=== PATIENT | female | born 1950 | race Caucasian/White ===

== ENCOUNTER 2025-03-10 09:07 | Outpatient (CLI) | payer MEDICARE, SELFPAY ==
[2025-03-10 09:39] LABS: Hematocrit 26.9 % (35.0-42.0); Hemoglobin 8.2 g/dL (11.7-13.8); Mean Corpuscular HGB Conc 30.5 g/dL (32-36); Mean Corpuscular Hemoglobin 27.8 pg (27.0-31.0); Mean Corpuscular Volume 91.2 fL (78.0-102.0); Mean Platelet Volume 8.6 fl (9.2-11.8); Platelet Count Result 229 K/mm3 (150-420); Red Blood Count 2.95 M/mm3 (4.20-5.40); Red Cell Distribution Width 16.9 % (11.6-14.4); White Blood Count 5.2 K/mm3 (4.8-10.8)
[2025-03-10 10:50] LABS: Alanine Aminotransferase 28 U/L (14-59); Albumin Level 2.8 g/dL (3.4-5.0); Alkaline Phosphatase 198 U/L (46-116); Anion Gap 7 mmol/L (4-12); Aspartate Amino Transferase 19 U/L (15-37); Bilirubin Direct 0.1 mg/dL (0-0.2); Bilirubin,Total 0.2 mg/dL (0.00-1.00); Blood Urea Nitrogen 15 mg/dL (7-18); Calcium 8.7 mg/dL (8.5-10.1); Carbon Dioxide 29 mmol/L (21-32); Chloride 101 mmol/L (98-108); Cholesterol 204 mg/dL (0-200); Estimated Glomerular Filt Rate 59; Free T4 Free Thyroxine 0.96 ng/dL (0.76-1.46); Glucose 99 mg/dL (70-99); HDL Direct 56 mg/dL (40-60); LDL Cholesterol Calculated 134 mg/dL (<130); Osmolality Calculated 284 mOsm/kg (285-295); Potassium 4.2 mmol/L (3.5-5.1); Sodium 137 mmol/L (136-145); Thyroid Stimulating Hormone 1.39 uIU/mL (0.36-3.74); Total Protein 8.2 g/dL (6.4-8.2); Triglycerides 71 mg/dL (0-150)
[2025-03-10 12:23] LABS: MALB Creatinine Ratio 9.1 mg/g (0-30); Microalbumin Urine Random 14.2 mg/L
[2025-03-12 06:14] LABS: Levetiracetam Keppra 51.8 mcg/mL (6.0-46.0)
== END 2025-03-10 09:08 | disposition home or self-care (01) ==
LOC: CHSLAB 09:12
PROVIDERS: PCP Family Medicine; Visit Provider Family Medicine
DX: E78.5 Hyperlipidemia, unspecified (principal); R30.0 Dysuria; E03.9 Hypothyroidism, unspecified; Z79.899 Other long term (current) drug therapy; R41.3 Other amnesia; R35.0 Frequency of micturition; R42 Dizziness and giddiness
CPT/HCPCS: 36415; 80048; 80061; 80076; 80177; 82043; 84439; 84443; 85027

== ENCOUNTER 2025-03-10 17:35 | Emergency (ER) | payer MEDICARE, SELFPAY ==
--- NOTE | ~2025-03-10 | CT_ITS ---
History: Fall PROCEDURE: CT cervical spine without intravenous contrast. COMPARISON: None TECHNIQUE: Multiple contiguous axial images of the cervical spine were performed without the administration of i ntravenous contrast. DLP: 232 mGy-cm FINDINGS: Acute comminuted fracture through the base of the odontoid process, with the comminution of the C2 ve rtebral body with the fracture lines extending into and involving the left C1/C2 facet joint. Degenerative disease is also noted, with osteophyte formation, disc space narrowing, endplate changes and vacuum phenomena. Compression of the superior endplate of T2 is incidentally noted, age indeterminate. Anterior fixation at the level of C5 and C6. The bilateral lung apices are unremarkable. No soft tissue abnormality is present. The airway is patent. Impression: Type III dens fracture comminution of the body and fracture lines extending into and involving the le ft lung/C2 facet joint. Compression of the superior endplate of T2, age indeterminate. Reviewed, dictated and finalized at location A. Impression: Type III dens fracture comminution of the body and fracture lines extending int o and involving the left lung/C2 facet joint. Compression of the superior endplate of T2, age indeterminate.
[2025-03-10 17:57] VITALS: BP 144/75; PULSE 79; RESP 20; TEMP 36.6; O2SAT 100
--- NOTE | 2025-03-10 18:18 | ED.NECK ---
HPI - Neck Pain/Injury General Chief Complaint: Neck Pain/Injury Stated Complaint: neck pain Time Seen by Provider: 03/10/25 17:47 Source: patient Limitations: no limitations History of Present Illness HPI Narrative: 74 YEARS OLD FEMALE CAME TO THE ED FROM ASSISTED COMPLAINING OF NECK PAIN POSTERIORLY FOR 1 WEEK. PATIENT HAD A FALL 1 WEEK AGO AND CURRENTLY AT REHAB, C2 FRACTURE, WEARING A HARD COLLAR. PATIENT DENIES TINGLING, NUMBNESS OR FOCAL NEURO DEFICITS OF THE UPPER OR LOWER EXTREMITIES. PATIENT DENIES ANY FEVER, CHILLS, NAUSEA, VOMITING, CHEST PAIN, SHORTNESS OF BREATH. Related Data Home Medications ?Medication ?Instructions ?Recorded ?Confirmed ?Last Taken ?Type acetaminophen 500 mg oral powder 1,000 mg PO Q6H PRN pain 03/10/25 Unknown History packet amlodipine 10 mg tablet 10 mg PO DAILY 03/10/25 Unknown History aspirin 81 mg chewable tablet 81 mg PO DAILY 03/10/25 Unknown History cephalexin 500 mg capsule 500 mg PO Q12H 03/10/25 Unknown History docusate sodium 100 mg capsule 100 mg PO BID 03/10/25 Unknown History levetiracetam 250 mg tablet 1,500 mg PO DAILY 03/10/25 Unknown History (Keppra) oxycodone 5 mg tablet 5 mg PO Q6H pain 03/10/25 03/10/25 History polyethylene glycol 3350 17 17 g PO DAILY 03/10/25 Unknown History gram/dose oral powder (ClearLax) potassium chloride 10 mEq 10 meq PO DAILY 03/10/25 Unknown History capsule,extended release prasugrel HCl 10 mg tablet 10 mg PO DAILY 03/10/25 Unknown History (Effient) primidone 250 mg tablet 250 mg PO QID 03/10/25 Unknown History topiramate 25 mg tablet (Topamax) 25 mg PO HS 03/10/25 Unknown History Allergies Allergy/AdvReac Type Severity Reaction Status Date / Time No Known Allergies Allergy Verified 03/10/25 18:43 Review of Systems Review of Systems: All systems reviewed & are unremarkable except as noted in HPI and below Exam Narrative: GENERAL APPEARANCE: WELL-DEVELOPED, WELL-NOURISHED SKIN: NORMAL COLOR HEAD: NORMOCEPHALIC, NONTRAUMATIC EYES: CLEAR CONJUNCTIVA ENT: OROPHARYNX NORMAL, EARS NORMAL, NOSE NORMAL NECK: HARD C-COLLAR ON CHEST AND RESPIRATORY: AIRWAY PATENT, NO RESPIRATORY DISTRESS, NO ACCESSORY MUSCLE USE HEART: REGULAR RATE/RHYTHM ABDOMEN: SOFT, NONTENDER, NO ORGANOMEGALY, QUIET BOWEL SOUNDS MUSCULOSKELETAL: NORMAL RANGE OF MOTION, NONTENDER BACK NEUROLOGIC: ALERT AND ORIENTED ?3, 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 WHEELCHAIR IS NORMAL TESTED, NO GROSS MOTOR DEFICIT Course Vital Signs Vital signs: Vital Signs Temperature 36.6 C 03/10/25 17:57 Pulse Rate 79 03/10/25 17:57 Respiratory Rate 20 03/10/25 17:57 Blood Pressure 144/75 H 03/10/25 17:57 Pulse Oximetry 100 03/10/25 17:57 Oxygen Delivery Room Air 03/10/25 17:57 Temperature 36.6 C 03/10/25 17:57 Pulse Rate 78 03/10/25 19:33 Respiratory Rate 18 03/10/25 19:33 Blood Pressure 126/72 03/10/25 19:33 Pulse Oximetry 100 03/10/25 19:33 Oxygen Delivery Room Air 03/10/25 19:33 MDM - Neck Pain/Injury MDM Narrative Medical decision making narrative: HISTORY OF C2 FRACTURE 1 WEEK AGO ON HARD C-COLLAR COMPLAINING OF PAIN FOR THE LAST 7 DAYS POSTERIORLY. NO FOCAL NEURO DEFICIT DIFFERENTIAL DIAGNOSIS INCLUDES HEALING FRACTURE, HARD C-COLLAR COMPLICATIONS, LACK OF NECK MUSCLE ACTIVITIES, NOT GIVEN HER REGULAR NARCOTICS AT THE REHAB CENTER CT CERVICAL SPINE SHOWED C2 FRACTURE Differential Diagnosis Differential diagnosis: Likely other ( ABOVE) Imaging Data My impression: CT CERVICAL SPINE SHOWED TYPE 3 DENS FRACTURE WITH ROUGHLY 5-6 MM OF FRAGMENT DISPLACEMENT. THERE IS COMMINUTION OF THE C2 BODY WITH FRACTURE LINES EXTENDING AND INVOLVING THE LEFT C1-TO FACET JOINT. Critical Care Time Critical Care Time Critical Care Time: No Discharge Plan Discharge Clinical Impression: C2 cervical fracture Patient Disposition: [facility]Asst Living Condition: Stable Instructions: Cervical Fracture (ED) Additional Instructions: RETURN IF SYMPTOMS ARE WORSENING , CALL YOUR NEUROSURGEON WHO IS TAKING CARE OF YOUR NECK FRACTURE FOR APPOINTMENT, CONTINUE HOME MEDICATIONS. OXYCODONE 5 MG EVERY 4 HOURS NEEDED Patient Language: Kazakh Prescriptions: No Action oxycodone 5 mg tablet 5 mg PO Q6H primidone 250 mg tablet 250 mg PO QID acetaminophen 500 mg powder in packet 1,000 mg PO Q6H PRN (Reason: pain) prasugrel HCl [Effient] 10 mg tablet 10 mg PO DAILY aspirin 81 mg tablet,chewable 81 mg PO DAILY amlodipine 10 mg tablet 10 mg PO DAILY levetiracetam [Keppra] 250 mg tablet 1,500 mg PO DAILY potassium chloride 10 mEq capsule, extended release 10 meq PO DAILY docusate sodium 100 mg capsule 100 mg PO BID polyethylene glycol 3350 [ClearLax] 17 gram/dose powder 17 g PO DAILY topiramate [Topamax] 25 mg tablet 25 mg PO HS cephalexin 500 mg capsule 500 mg PO Q12H Follow-up/Referrals: Julio Manriquez MD [Primary Care Provider] -
[2025-03-10] MEDS: ONDANSETRON HCL ODT 4 MG TABLET PO (19:12)
[2025-03-10] MEDS: HYDROmorphone HCL INJ (*CRX) 2 MG/ML VIAL 1 MG IM (19:12)
[2025-03-10 19:33] VITALS: BP 126/72; PULSE 78; RESP 18; O2SAT 100
--- NOTE | 2025-03-10 20:06 | PC.NURSE ---
[facility] Rad called to speak w/ Dr Pickering about CT result report. POC discussed w/ pt about going back to [place].
--- NOTE | 2025-03-10 20:15 | PC.NURSE ---
Report called back to [place] staff at [facility]. Instructed on keeping c-collar in place and taking her pain meds regularly.
[2025-03-10 20:25] VITALS: BP 126/74; PULSE 79; RESP 18; TEMP 36.6; O2SAT 99
== END 2025-03-10 20:25 ==
PROVIDERS: Emergency Provider Emergency Medicine; PCP Family Medicine
DX: S12.100A Unspecified displaced fracture of second cervical vertebra, initial encounter for closed fracture (principal); Z79.899 Other long term (current) drug therapy; W19.XXXA Unspecified fall, initial encounter
CPT/HCPCS: 72125; 96372; 99284; A9270; J1171

== ENCOUNTER 2025-03-17 09:16 | Outpatient (CLI) | payer MEDICARE, SELFPAY ==
[2025-03-17 09:54] LABS: Hematocrit 30.2 % (35.0-42.0); Hemoglobin 9.2 g/dL (11.7-13.8); Mean Corpuscular HGB Conc 30.5 g/dL (32-36); Mean Corpuscular Volume 88.6 fL (78.0-102.0); Mean Platelet Volume 10.1 fl (9.2-11.8); Platelet Count Result 253 K/mm3 (150-420); Red Blood Count 3.41 M/mm3 (4.20-5.40); Red Cell Distribution Width 17.1 % (11.6-14.4); White Blood Count 5.2 K/mm3 (4.8-10.8)
== END 2025-03-17 09:17 | disposition home or self-care (01) ==
PROVIDERS: PCP Family Medicine; Visit Provider Family Medicine
DX: D64.9 Anemia, unspecified (principal)
CPT/HCPCS: 36415; 85027

== ENCOUNTER 2025-03-25 12:30 | Observation (INO) | payer MEDICARE, SELFPAY ==
[2025-03-25] VITALS (10 sets, daily range): BP systolic 135–155; BP diastolic 76–93; PULSE 105–112; RESP 16–21; TEMP 35.2–35.9; O2SAT 91–98; BMI 27.0
--- NOTE | ~2025-03-25 | CT_ITS ---
History: Fall, altered mental status PROCEDURE: CT cervical spine without intravenous contrast. COMPARISON: 03/10/2025 TECHNIQUE: Multiple contiguous axial images of the cervical spine were performed without the administration of i ntravenous contrast. DLP: 230 mGy-cm FINDINGS: Redemonstration of a comminuted fracture through the base of the odontoid process, with the fracture lines extending into and involving the left C1/C2 facet joint. Only trace callus formation is noted. Degenerative disease is also redemonstrated, with osteophyte formation, disc space narrowing, endplat e changes and vacuum phenomena. Redemonstration of compression the superior endplate of T2 with endplate sclerosis is incidentally no vane, age indeterminate, likely subacute. Anterior fixation at the level of C5 and C6 with ankylosis. The bilateral lung apices are unremarkable. No soft tissue abnormality is present. The airway is patent. Impression: Redemonstration of a type III dens fracture comminution of the body of the dens and fracture lines ex tending into and involving C1/C2 facet joint. Only trace, if any, callus formation is detected. Likely subacute compression fracture of superior endplate of T2, as detailed above. Reviewed, dictated and finalized at location A. Impression: Redemonstration of a type III dens fracture comminution of the body of the dens and fracture lines extending into and involving C1/C2 facet joint. Only trace, if any, callus formation is detected. Likely subacute compression fracture of superior endplate of T2, as detailed ab ove.
--- NOTE | ~2025-03-25 | CT_ITS ---
CTA brain carotid Ordering provider: Yanet Do APRN History: . AMS X 3days, weakness, unable to swallow, not speaking . Comparison: March 25, 2025 Technique: CT angiogram head and neck was performed following timed intravenous injection of contrast . Thin slice axial images and reformatted coronal images were obtained. Three dimensional reformatted images of the brain were also obtained using a [employer] workstation. Radiation reduction technique uti lized. The dose-length product was 1860.26 mGy-cm. 100 mL Omnipaque 350 was given IV. FINDINGS: HEAD: --ANTERIOR AND MIDDLE CEREBRAL ARTERIES AND BRANCHES: Normal caliber and contour. --INTERNAL CAROTID ARTERIES: Mild atheromatous disease but no significant stenosis. No occlusion. --BASILAR ARTERY AND BRANCHES: Normal caliber and contour. No atheromatous disease. --POSTERIOR CEREBRAL ARTERIES: Normal caliber and contour --POSTERIOR COMMUNICATING ARTERIES: Not visualized which is probably related to congenital absence or small size. --ANEURYSM: None visualized. --BRAIN: Brain atrophy with deep white matter ischemic changes. Otherwise normal. --BONES AND SUPERFICIAL SOFT TISSUES: Left frontal postoperative changes. --PARANASAL SINUSES AND MASTOIDS: Normal. NECK: --RIGHT CERVICAL CAROTID SYSTEM: Normal caliber and contour. Percent stenosis per NASCET criteria is 0%. No carotid dissection. Otherwise, no significant atheromatous disease or stenosis of the cervica l carotid system. --LEFT CERVICAL CAROTID SYSTEM: Normal caliber and contour. Percent stenosis per NASCET criteria is 0 %. No carotid dissection. Otherwise, no significant atheromatous disease or stenosis of the cervical carotid system. --VERTEBRAL ARTERIES: Dominant right vertebral artery. Otherwise, Normal caliber and contour. --VISUALIZED AORTIC ARCH AND BRANCHING VESSELS: Mild atheromatous disease but no significant stenosis . --SOFT TISSUES: Soft tissue density with central hypodensity is seen posterior to the right side of t he tongue which may be a tonsillar abscess measuring 0.9 x 0.5 cm. Clinical evaluation advised. Promi nent enhancing lingular tonsils is also noted. Mass cannot be excluded. Clinical evaluation advised. Prominent vessels in the left side of the tongue are noted. --CERVICAL SPINE: Fracture of the dens at the base suggestive of type III fracture with minimal anter ior displacement. Age appropriate degenerative changes. Postoperative changes at the level of C5-C6.. DISH changes are also noted. IMPRESSION: 1. Type III Fracture of the odontoid process of the base with minimal anterior displacement. MRI is advised. Prominent lingual tonsils with enhancement is also seen. Clinical evaluation is advised 2. Normal CTA head. 3. Normal CTA neck. Percent stenosis per NASCET criteria is 0%. 4. Abscess in the right tonsillar area. Clinical evaluation advised. 5. Enhancement in the area of the lingula tonsils. Inflammatory or infiltrative process cannot be ex cluded. Clinical evaluation advised. Reviewed, dictated and finalized at location A. IMPRESSION: 1. Type III Fracture of the odontoid process of the base with minimal anterior displacement. MRI is advised. Prominent lingual tonsils with enhancement is al so seen. Clinical evaluation is advised 2. Normal CTA head. 3. Normal CTA neck. Percent stenosis per NASCET criteria is 0%. 4. Abscess in the right tonsillar area. Clinical evaluation advised. 5. Enhancement in the area of the lingula tonsils. Inflammatory or infiltrativ e process cannot be excluded. Clinical evaluation advised.
--- NOTE | ~2025-03-25 | CT_ITS ---
CT brain wo con Ordering provider: Leonidas Martin MD History: 74 years Female with . altered mental status, fall . Comparison: None. Technique: CT of the head without contrast. Radiation reduction technique utilized. The dose-length p roduct was 681 mGy-cm. FINDINGS: BRAIN PARENCHYMA AND CSF SPACES: Mild leukoaraiosis and diffuse cortical atrophy. Mild atheromatous d isease. No midline shift, mass effect or hemorrhage. The brain parenchyma and CSF spaces are otherwi se normal. VISUALIZED PARANASAL SINUSES: Well aerated. MASTOIDS: Well aerated. BONES: Postoperative changes in the left frontal bone. The bones appear intact. SOFT TISSUES: Visualized nasopharynx is normal. Superficial soft tissues are normal. IMPRESSION: No acute intracranial findings. Reviewed, dictated and finalized at location A.
--- NOTE | ~2025-03-25 | XR_ITS ---
EXAMINATION: XR chest 1V portable 03/25/2025 13:44 INDICATION: Tachycardia. Status post fall. PROCEDURE: AP portable chest COMPARISON: No prior studies for comparison. FINDINGS: The lungs are clear. Mild cardiomegaly. There is coronary atherosclerosis. There are no ple ural effusions. There is no pneumothorax suspected. Status post median sternotomy for CABG. IMPRESSION: 1: NO ACUTE CARDIOPULMONARY DISEASE. Reviewed, dictated and finalized at location B.
--- NOTE | 2025-03-25 12:40 | ECG_ITS ---
Test Date: 2025-03-25 13:10:44 Measurements Intervals [place] Rate: 106 P: 59 SD: 137 QRS: 19 QRSD: 105 T: 50 QT: 341 QTc: 454 Interpretive Statements SINUS TACHYCARDIA POSSIBLE LEFT VENTRICULAR HYPERTROPHY [VOLTAGE CRITERIA PLUS LAE OR QRS WIDENING] NONSPECIFIC T-WAVE ABNORMALITY No previous ECG available for comparison Electronically Signed On 03-25-2025 13:17:04 CDT by Rosas Lomeli M.D.
[2025-03-25 13:21] LABS: Add Urine Microscopic? YES; Appearance Urine Clear (Clear); Bilirubin Urine 1+ (Negative); Blood Urine 2+ (Negative); Color Urine Yellow (Yellow); Glucose Urine UA Negative (Negative); Ketones Urine 1+ (Negative); Leukocyte Esterase Ur Trace (Negative); Nitrate Urine Negative (Negative); Protein Urine 1+ (Negative); Specific Grav Ur >= 1.030 (1.010-1.020); pH Urine 5.5 (5.0-8.0)
[2025-03-25 13:28] LABS: Squamous Epithelial Cell Urine Few /hpf (Few); WBC Urine 21-30 /hpf (0-3)
[2025-03-25 13:29] LABS: Bacteria Urine Trace /hpf
[2025-03-25 15:07] LABS: Basophils Absolute Auto 0.02 K/mm3 (0.00-0.10); Basophils Percent Auto 0.2 % (0.0-1.0); Eosinophils Absolute Auto 0.01 K/mm3 (0.02-0.50); Eosinophils Percent Auto 0.1 % (1.0-6.0); Hematocrit 30.7 % (35.0-42.0); Hemoglobin 9.3 g/dL (11.7-13.8); Immature Granulocyte Absolute 0.05 K/mm3 (0.00-0.00); Immature Granulocyte Percent A 0.5 % (0.0-0.0); Lymphocytes Absolute Auto 1.75 K/mm3 (1.10-4.50); Lymphocytes Percent Auto 19.2 % (18.0-42.0); Mean Corpuscular HGB Conc 30.3 g/dL (32-36); Mean Corpuscular Hemoglobin 26.6 pg (27.0-31.0); Mean Corpuscular Volume 87.7 fL (78.0-102.0); Mean Platelet Volume 9.4 fl (9.2-11.8); Monocytes Absolute Auto 0.81 K/mm3 (0.10-0.90); Monocytes Percent Auto 8.9 % (2.0-11.0); Neutrophils Absolute Auto 6.46 K/mm3 (1.70-7.20); Neutrophils Percent Auto 71.1 % (50.0-70.0); Platelet Count Result 340 K/mm3 (150-420); Red Cell Distribution Width 17.7 % (11.6-14.4); White Blood Count 9.1 K/mm3 (4.8-10.8)
[2025-03-25 15:22] LABS: Alanine Aminotransferase 16 U/L (6-35); Albumin Level 3.7 g/dL (3.5-5.1); Alkaline Phosphatase 195 U/L (38-126); Anion Gap 7 mmol/L (4-12); Aspartate Amino Transferase 39 U/L (14-36); Bilirubin,Total 0.4 mg/dL (0.2-1.3); Blood Urea Nitrogen 18 mg/dL (7-17); Calcium 8.6 mg/dL (8.4-10.2); Carbon Dioxide 24 mmol/L (22-30); Chloride 110 mmol/L (98-107); Estimated Glomerular Filt Rate > 60; Glucose 108 mg/dL (65-110); Osmolality Calculated 294 mOsm/kg (285-295); Potassium 4.2 mmol/L (3.4-5.0); Sodium 141 mmol/L (137-145); Total Protein 8.6 g/dL (6.3-8.2)
[2025-03-25 15:23] LABS: Magnesium 2.3 mg/dL (1.6-2.3)
--- NOTE | 2025-03-25 15:27 | ED_ITS ---
HPI - Altered Mental Status General Chief Complaint: Altered Mental Status Stated Complaint: altered mental status Time Seen by Provider: 03/25/25 12:39 Source: patient and EMS Mode of arrival: ambulatory Limitations: no limitations History of Present Illness HPI narrative: patient is a 74-year-old female with a significant past medical history that presents today for altered mental status. Apparently she lives at home and that he will work at home said that she has not been acting like herself and normally has a conversation with the talks even she has not been doing that for last 2 days. She has also not been wanting to eat or drink. And not answer any questions. She has also been battling a UTI for like the last 3 weeks it looks like she was given Keflex 3 times for the antibiotic and antibiotic was not changed and continued on Keflex. I am not sure her the logic of continuing Keflex was working her way Keflex was started in the 1st place but will need to change antibiotics. MD complaint: altered mental status and confusion Onset (ago): hour(s) Time: 15:29 Timing confirmed by: family member Severity: moderate Consistency of symptoms: waxing and waning Context: history of similar presentation Related Data Home Medications ?Medication ?Instructions ?Recorded ?Confirmed ?Last Taken ?Type acetaminophen 500 mg oral powder 1,000 mg PO Q6H PRN pain 03/10/25 Unknown History packet amlodipine 10 mg tablet 10 mg PO DAILY 03/10/25 Unknown History aspirin 81 mg chewable tablet 81 mg PO DAILY 03/10/25 Unknown History cephalexin 500 mg capsule 500 mg PO Q12H 03/10/25 Unknown History docusate sodium 100 mg capsule 100 mg PO BID 03/10/25 Unknown History levetiracetam 250 mg tablet 1,500 mg PO DAILY 03/10/25 Unknown History (Keppra) oxycodone 5 mg tablet 5 mg PO Q6H pain 03/10/25 03/10/25 History polyethylene glycol 3350 17 17 g PO DAILY 03/10/25 Unknown History gram/dose oral powder (ClearLax) potassium chloride 10 mEq 10 meq PO DAILY 03/10/25 Unknown History capsule,extended release prasugrel HCl 10 mg tablet 10 mg PO DAILY 03/10/25 Unknown History (Effient) primidone 250 mg tablet 250 mg PO QID 03/10/25 Unknown History topiramate 25 mg tablet (Topamax) 25 mg PO HS 03/10/25 Unknown History Allergies Allergy/AdvReac Type Severity Reaction Status Date / Time morphine Allergy Unknown Unknown Verified 03/25/25 12:49 Review of Systems 2 Review of Systems: All systems reviewed & are unremarkable except as noted in HPI and below Constitutional: Constitutional: Reports as per HPI Eyes: Eyes: Reports as per HPI ENT: Reports system reviewed and no additional complaints, except as documented Cardiovascular: Cardiovascular: Reports as per HPI Respiratory: Respiratory: Reports as per HPI Gastrointestinal: Gastrointestinal: Reports as per HPI Genitourinary: Genitourinary: Reports no additional female genitourinary complaints Musculoskeletal: Musculoskeletal: Reports no additional musculoskeletal complaints Integumentary/Breasts: Skin/Breast: Reports system reviewed and no additional complaints, except as docu Neurologic: Reports system reviewed and no additional complaints, except as documented Psychiatric: Psychiatric: Reports no additional psychiatric complaints Endocrine: Endocrine: Reports no additional endocrine complaints Hematologic/Lymphatic: Hematologic/Lymphatic: Reports no additional hematologic/lymphatic complaints Allergic/Immunologic: Allergic/Immunologic: Reports no additional allergic/immunologic complaints Exam 2 Const: General: healthy appearing Nutritional Appearance: well nourished Orientation/consciousness: patient oriented x3 HENMT: Head: normal to inspection Ears: external ears normal F ebony/Nose/Sinus: Normal external nose present Face and sinus: normal facial exam Mouth: Yes Normal oral and palatal mucosa present Teeth and gingiva: dentition normal Eyes: Conjunctivae: conjunctivae normal Pupils: Equal, round and reactive pupils present EOM: EOMs intact bilaterally Direct Ophthalmoscopy: no photophobia Neck: Neck: normal visual inspection Chest: Chest palpation & inspection: normal inspection of the chest Resp: Effort & Inspection: normal respiratory effort Auscultation: clear to auscultation bilaterally Cardio: Rate: regular rate Rhythm: regular rhythm GI: GI Palp: Yes Soft to palpation Back/Spine/Pelvis: Back: no CVA tenderness Skin: General skin exam: normal color Rashes: no rashes Wounds: no wounds Neuro: General: patient oriented x3 Cranial nerves: Yes Nystagmus not present Speech: normal speech Gait exam (Neuro): Normal gait present Extrem: General: normal to inspection Psych: Mental Status: mental status grossly normal Affect: normal affect Attitude: cooperative Course Vital Signs Vital signs: Vital Signs Temperature 95.4 F L 03/25/25 12:30 Pulse Rate 106 H 03/25/25 12:30 Respiratory Rate 21 H 03/25/25 12:30 Blood Pressure 155/78 H 03/25/25 12:30 Pulse Oximetry 98 03/25/25 12:30 Oxygen Delivery Room Air 03/25/25 12:30 Temperature 95.4 F L 03/25/25 12:30 Pulse Rate 106 H 03/25/25 12:30 Respiratory Rate 21 H 03/25/25 12:30 Blood Pressure 155/78 H 03/25/25 12:30 Pulse Oximetry 98 03/25/25 12:30 Oxygen Delivery Room Air 03/25/25 12:30 MDM - Altered Mental Status MDM Narrative Medical decision making narrative: Patient has a UTI this been treated overly repeatedly with Keflex 3 times. Will do UA on her, UA still showed that she still has a UTI. Will change antibiotic to Rocephin and start her on IV Rocephin. Also give her Valium IV fluids she is very dehydrated. She is not hold anything down and does not want me. She has also been to altered mental status because she is not talking or communicating very much they said this is not her norm. Will do CT of the brain and she has an old compression fracture with a redo an MRI of the cervical spine on so we will do a.m. a CT scan of the cervical spine to ensure there are no more compression fracture since then. CT of the spine did show a new graciela compression fracture. Will have her follow-up with Ortho for That. Differential Diagnosis Differential diagnosis: Likely altered mental status and other Medical Records Attestation: I reviewed the patient's medical records. Lab Data Attestation: I reviewed the patient's lab results. 03/25/25 15:02 03/25/25 15:02 Labs: Lab Results 03/25/25 03/25/25 Range/Units 12:47 15:02 WBC 9.1 (4.8-10.8) K/mm3 RBC 3.50 L (4.20-5.40) M/mm3 Hgb 9.3 L (11.7-13.8) g/dL Hct 30.7 L (35.0-42.0) % MCV 87.7 (78.0-102.0) fL MCH 26.6 L (27.0-31.0) pg MCHC 30.3 L (32-36) g/dL RDW 17.7 H (11.6-14.4) % Plt Count 340 (150-420) K/mm3 MPV 9.4 (9.2-11.8) fl Immature Gran % (Auto) 0.5 H (0.0-0.0) % Neut % (Auto) 71.1 H (50.0-70.0) % Lymph % (Auto) 19.2 (18.0-42.0) % [place] % (Auto) 8.9 (2.0-11.0) % Eos % (Auto) 0.1 L (1.0-6.0) % Baso % (Auto) 0.2 (0.0-1.0) % Lymph # (Auto) 1.75 (1.10-4.50) K/mm3 [place] # (Auto) 0.81 (0.10-0.90) K/mm3 Eos # (Auto) 0.01 L (0.02-0.50) K/mm3 Baso # (Auto) 0.02 (0.00-0.10) K/mm3 Abs Immat Gran (auto) 0.05 H (0.00-0.00) K/mm3 Absolute Neuts (auto) 6.46 (1.70-7.20) K/mm3 Absolute Nucleated RBC 0.00 (0.00-0.00) K/mm3 Nucleated RBC % 0.0 (0-0.0) % Sodium 141 (137-145) mmol/L Potassium 4.2 (3.4-5.0) mmol/L Chloride 110 H (98-107) mmol/L Carbon Dioxide 24 (22-30) mmol/L Anion Gap 7 (4-12) mmol/L BUN 18 H (7-17) mg/dL Creatinine 0.80 (0.7-1.0) mg/dL Estim Creat Clear Calc Not Reportable Estimated GFR > 60 (59 - ) Glucose 108 (65-110) mg/dL Calculated Osmolality 294 (285-295) mOsm/kg Calcium 8.6 (8.4-10.2) mg/dL Magnesium 2.3 (1.6-2.3) mg/dL Total Bilirubin 0.4 (0.2-1.3) mg/dL AST 39 H (14-36) U/L ALT 16 (6-35) U/L Alkaline Phosphatase 195 H (38-126) U/L Total Protein 8.6 H (6.3-8.2) g/dL Albumin 3.7 (3.5-5.1) g/dL Urine Color Yellow (Yellow) Urine Appearance Clear (Clear) Urine pH 5.5 (5.0-8.0) Ur Specific [place] >= 1.030 H (1.010-1.020) Urine Protein 1+ H (Negative) Urine Glucose (UA) Negative (Negative) Urine Ketones 1+ H (Negative) Ur Blood (Man) 2+ H (Negative) Urine Nitrate Negative (Negative) Urine Bilirubin 1+ H (Negative) Urine Urobilinogen 1.0 (0.2-1.0) mg/dL Ur Leukocyte Esterase Trace H (Negative) Urine RBC 3-5 H (0-2) /hpf Urine WBC 21-30 H (0-3) /hpf Ur Squamous Epith Cells Few (Few) /hpf Urine Bacteria Trace (None) /hpf Imaging Data Attestation: I personally reviewed and interpreted this imaging study as follows: Discharge Plan Discharge Patient Language: Palestinian Prescriptions: No Action oxycodone 5 mg tablet 5 mg PO Q6H primidone 250 mg tablet 250 mg PO QID acetaminophen 500 mg powder in packet 1,000 mg PO Q6H PRN (Reason: pain) prasugrel HCl [Effient] 10 mg tablet 10 mg PO DAILY aspirin 81 mg tablet,chewable 81 mg PO DAILY amlodipine 10 mg tablet 10 mg PO DAILY levetiracetam [Keppra] 250 mg tablet 1,500 mg PO DAILY potassium chloride 10 mEq capsule, extended release 10 meq PO DAILY docusate sodium 100 mg capsule 100 mg PO BID polyethylene glycol 3350 [ClearLax] 17 gram/dose powder 17 g PO DAILY topiramate [Topamax] 25 mg tablet 25 mg PO HS cephalexin 500 mg capsule 500 mg PO Q12H Time of Disposition: 15:38
--- NOTE | 2025-03-25 15:31 | PC.NURSE ---
RN spoke with daughter April WILBURN and she is aware patient is being admitted.
--- NOTE | 2025-03-25 16:37 | PC.NURSE ---
Patient arrived to unit from ED on stretcher and required 3 assist to transfer from stretcher to bed. Nurse attempted to educate patient on use of call light and bed controls, as well as safety precautions. Patient unresponsive, but will open her eyes to her name. Blue folder placed in room. Will attempt furhter education when patient is more responsive.
[2025-03-25] MEDS: SODIUM CHLORIDE 0.9% IV 1,000 ML 100 ML IV CONT (17:07)
[2025-03-25] MEDS: PRIMIDONE 250 MG TABLET PO (20:45)
[2025-03-25] MEDS: TOPIRAMATE 25 MG TABLET PO (20:46)
--- NOTE | 2025-03-25 22:32 | PC.NURSE ---
Nurse called down to ER to update doctor on patient. JESÚS Terrazas answered phone and said the doctor is in with a patient. This nurse explained that patient is in sinus tach and heart rate is 199-120. Patient also appears to be in pain but is not swallowing p.o. medication.
[2025-03-25] MEDS: oxyCODONE HCL (*CRX) 5 MG TAB IR PO (23:54)
[2025-03-26] VITALS (7 sets, daily range): BP systolic 144–151; BP diastolic 80–85; PULSE 104–121; RESP 17–26; TEMP 36.8; O2SAT 96–98
[2025-03-26] MEDS: METOPROLOL TARTRATE 25 MG TABLET PO (00:29)
[2025-03-26] MEDS: SODIUM CHLORIDE 0.9% IV 1,000 ML 100 ML IV CONT (03:31)
--- NOTE | 2025-03-26 07:15 | PC.NURSE ---
Called [facility] spoke with Chayito requesting POA paperwork be faxed to 2nd floor. Chayito states, Yeah, I will let the nurse know to do it.
--- NOTE | 2025-03-26 09:06 | PC.NURSE ---
2nd call made requesting POA paperwork to be sent to 2nd floor.
--- NOTE | 2025-03-26 09:11 | PC.NURSE ---
POA paperwork hand delivered by [facility] staff.
[2025-03-26 09:26] LABS: Hematocrit 26.6 % (35.0-42.0); Hemoglobin 8.1 g/dL (11.7-13.8); Mean Corpuscular HGB Conc 30.5 g/dL (32-36); Mean Corpuscular Hemoglobin 26.6 pg (27.0-31.0); Mean Corpuscular Volume 87.2 fL (78.0-102.0); Platelet Count Result 300 K/mm3 (150-420); Red Blood Count 3.05 M/mm3 (4.20-5.40); Red Cell Distribution Width 17.3 % (11.6-14.4); White Blood Count 7.7 K/mm3 (4.8-10.8)
[2025-03-26 09:43] LABS: Alanine Aminotransferase 16 U/L (6-35); Albumin Level 3.2 g/dL (3.5-5.1); Alkaline Phosphatase 161 U/L (38-126); Anion Gap 5 mmol/L (4-12); Aspartate Amino Transferase 40 U/L (14-36); Bilirubin,Total 0.5 mg/dL (0.2-1.3); Blood Urea Nitrogen 16 mg/dL (7-17); Carbon Dioxide 22 mmol/L (22-30); Chloride 115 mmol/L (98-107); Estimated CRCL calculation 48 ml/min; Estimated Glomerular Filt Rate > 60; Glucose 99 mg/dL (65-110); Osmolality Calculated 295 mOsm/kg (285-295); Sodium 142 mmol/L (137-145); Total Protein 7.6 g/dL (6.3-8.2)
--- NOTE | 2025-03-26 10:52 | P.HP_ITS ---
H&P: HPI History of Present Illness Date/Time: 03/26/25 10:52 Chief Complaint: Altered mental status Narrative: patient is a 74-year-old female who presented to the emergency department from a alf facility due to altered mental status and confusion. Patient unable to answer questions most information is taken from the medical records. patient on March 10, 2025 had a fall at her home at which time she had suffered a dens 3 fracture of the C1-C2 choose evaluated by a neurosurgeon and placed in a cervical collar due to inability care for self at home she was sent to a rehab center. Patient arrived to our emergency department today per staff at the skilled facility patient was alert and oriented times for feeding herself when they noticed she started having altered mental status and stopped communicating. Per the records patient had been getting treated for a urinary tract infection that did not appear to be clearing had been given 3 rounds of Keflex UA in the emergency department showed clear urine with leukocytes, WBCs high and trace bacteria however do not have records from previous UA. a CT head had been completed which showed no acute intracranial findings, chest x-ray with no acute cardiopulmonary disease, and a repeat cervical spine showed no change to subacute dens fracture. patient was then admitted to the medical unit for further evaluation and treatment and placed on IV Rocephin. upon evaluation of patient Alert to name and is eye tracking, she will squeeze light with bilateral hands when asked and did respond to leg pushes with minimal resistance. Records from alf facility reported past medical history of a subdural and subarachnoid hemorrhage, migraines, tremors, hypertension, HLD, CKD, anemia, and previous dysphagia. patient is on Keppra but unknown underlying reason unless she may have a history of seizures not reported. patient with sinus tachycardia but unable to swallow oral medication will give IV metoprolol to help control. due to patient's new acute altered mental status some concern for possible seizure postictal state or stroke but unable to get diagnostic testing needed at this facility called for transfer to a tertiary care facility. CTA head/neck completed showing Unable to perform MRI at current facility. Patient will likely need a neurological work-up including MRI, EEG, ECHO with consult to neurology and possible swallowing evaluation if she continues to have difficulty swallowing. I have held off on administering any plavix due to HX of subarachnoid and subdermal hemorrhage. Review of Systems Review of Systems: ROS unobtainable: Yes unobtainable due to medical condition and unobtainable due to mental status [facility], [facility] Past Medical History Medical History CAD (coronary artery disease) Coarse tremors Subdural hemorrhage Subarachnoid hemorrhage Migraine Hypertension Social History Social History Second hand tobacco smoke exposure: No Alcohol intake: unknown Substance use: unknown Spiritual care concerns: No Meds Home Medications and Allergies Home Medications ?Medication ?Instructions ?Recorded ?Confirmed ?Type acetaminophen 500 mg oral powder 1,000 mg PO Q6H PRN pain 03/10/25 03/25/25 History packet amlodipine 10 mg tablet 10 mg PO DAILY 03/10/25 03/25/25 History aspirin 81 mg chewable tablet 81 mg PO DAILY 03/10/25 03/25/25 History cephalexin 500 mg capsule 500 mg PO Q12H 03/10/25 03/25/25 History docusate sodium 100 mg capsule 100 mg PO BID 03/10/25 03/25/25 History levetiracetam 250 mg tablet 1,500 mg PO DAILY 03/10/25 03/25/25 History (Keppra) oxycodone 5 mg tablet 5 mg PO Q6H PRN pain 03/10/25 03/25/25 History polyethylene glycol 3350 17 17 g PO DAILY 03/10/25 03/25/25 History gram/dose oral powder (ClearLax) potassium chloride 10 mEq 10 meq PO DAILY 03/10/25 03/25/25 History capsule,extended release prasugrel HCl 10 mg tablet 10 mg PO DAILY 03/10/25 03/25/25 History (Effient) primidone 250 mg tablet 250 mg PO QID 03/10/25 03/25/25 History topiramate 25 mg tablet (Topamax) 25 mg PO HS 03/10/25 03/25/25 History acetaminophen 500 mg capsule 1,000 mg PO Q6H PRN fever or pain 03/25/25 03/25/25 History Allergies Allergy/AdvReac Type Severity Reaction Status Date / Time morphine Allergy Unknown Unknown Verified 03/25/25 12:49 Vital Signs Vital Signs - 24 hr 03/25/25 12:30 03/25/25 13:00 03/25/25 13:30 Temperature 95.4 F L Pulse Rate 106 H 105 H 105 H Respiratory Rate 21 H 17 16 Blood Pressure 155/78 H 135/83 143/76 H Pulse Oximetry 98 98 98 Oxygen Delivery Room Air Room Air 03/25/25 14:00 03/25/25 14:30 03/25/25 15:00 Temperature Pulse Rate 105 H 109 H 111 H Respiratory Rate 18 16 16 Blood Pressure 150/86 H 155/93 H 152/91 H Pulse Oximetry 97 97 97 Oxygen Delivery 03/25/25 15:30 03/25/25 15:50 03/25/25 16:28 Temperature 96.6 F L Pulse Rate 111 H 110 H 110 H Respiratory Rate 16 17 18 Blood Pressure 146/90 H 152/92 H 155/83 H Pulse Oximetry 98 98 91 Oxygen Delivery Room Air Room Air 03/25/25 20:00 03/25/25 20:00 03/26/25 00:00 Temperature Pulse Rate 112 H 112 H 120 H Respiratory Rate 18 Blood Pressure Pulse Oximetry 97 Oxygen Delivery Room Air 03/26/25 00:00 03/26/25 00:29 03/26/25 04:00 Temperature 98.2 F Pulse Rate 120 H 121 H 107 H Respiratory Rate 17 Blood Pressure 144/80 H Pulse Oximetry 98 Oxygen Delivery Room Air 03/26/25 07:48 03/26/25 08:00 Temperature 98.3 F Pulse Rate 114 H 111 H Respiratory Rate 26 H Blood Pressure 151/85 H Pulse Oximetry 96 Oxygen Delivery Room Air Exam Const: General: comfortable and no acute distress Other: Alert x1 to name but not conversing is tracking with eyes HENMT: Ears: TM's normal bilaterally Face/Nose/Sinus: Normal nares present Mouth: Yes moist mucous membranes Eyes: General: appearance normal, both eyes and all related structures Sclera: sclerae normal Pupils: Equal, round and reactive pupils present Neck: Neck: supple and no JVD Resp: Effort & Inspection: normal respiratory effort Auscultation: clear to auscultation bilaterally Cardio: Rate: tachycardic GI: GI Palp: Yes Soft to palpation Auscultation: normal bowel sounds Urinary Catheter: Urinary Catheter: patent and draining and urine clear Skin: General skin exam: normal color and no rashes or lesions noted Wounds: no wounds Neuro: General: oriented to person, Normal light touch and pain sensation and Unable to assess gait Cranial nerves: Yes facial sensation intact/muscles of mastication intact Speech: aphasia Gait exam (Neuro): Unable to assess gait Motor exam (neuro): Abnormal motor strength present (1/5 strength to upper and lower extremities) bilateral Sensory Exam: normal sensation Other: Alert to self will follow with eye tracking but not conversing. minimal strength to upper and lower extremities but did follow command to squeeze hands. No facial drop but would not smile when asked Extrem: General: normal to inspection Psych: Other: Unable to assess H&P: Results Labs Labs: Short CBC 03/25/25 03/26/25 Range/Units 15:02 09:21 WBC 9.1 7.7 (4.8-10.8) K/mm3 Hgb 9.3 L 8.1 L (11.7-13.8) g/dL Hct 30.7 L 26.6 L (35.0-42.0) % Plt Count 340 300 (150-420) K/mm3 BMP 03/25/25 03/26/25 15:02 09:21 Sodium 141 142 Potassium 4.2 4.0 Chloride 110 H 115 H Carbon Dioxide 24 22 BUN 18 H 16 Creatinine 0.80 0.80 Glucose 108 99 Calcium 8.6 8.0 L Liver Function 03/25/25 03/26/25 Range/Units 15:02 09:21 Total Bilirubin 0.4 0.5 (0.2-1.3) mg/dL AST 39 H 40 H (14-36) U/L ALT 16 16 (6-35) U/L Alkaline Phosphatase 195 H 161 H (38-126) U/L Albumin 3.7 3.2 L (3.5-5.1) g/dL Urine 03/25/25 Range/Units 12:47 Urine Color Yellow (Yellow) Urine Appearance Clear (Clear) Urine pH 5.5 (5.0-8.0) Ur Specific [place] >= 1.030 H (1.010-1.020) Urine Protein 1+ H (Negative) Urine Glucose (UA) Negative (Negative) Imaging CT scan - head: Radiologist's impression: CT brain wo con Ordering provider: Leonidas Martin MD History: 74 years Female with . altered mental status, fall . Comparison: None. Technique: CT of the head without contrast. Radiation reduction technique utilized. The dose-length product was 681 mGy-cm. FINDINGS: BRAIN PARENCHYMA AND CSF SPACES: Mild leukoaraiosis and diffuse cortical atrophy. Mild atheromatous disease. No midline shift, mass effect or hemorrhage. The brain parenchyma and CSF spaces are otherwise normal. VISUALIZED PARANASAL SINUSES: Well aerated. MASTOIDS: Well aerated. BONES: Postoperative changes in the left frontal bone. The bones appear intact. SOFT TISSUES: Visualized nasopharynx is normal. Superficial soft tissues are normal. IMPRESSION: No acute intracranial findings. EXAMINATION: XR chest 1V portable 03/25/2025 13:44 INDICATION: Tachycardia. Status post fall. PROCEDURE: AP portable chest COMPARISON: No prior studies for comparison. FINDINGS: The lungs are clear. Mild cardiomegaly. There is coronary atherosclerosis. There are no pleural effusions. There is no pneumothorax suspected. Status post median sternotomy for CABG. IMPRESSION: 1: NO ACUTE CARDIOPULMONARY DISEASE. Assessment and Plan Assessment and plan (1) Altered mental status: Code(s): R41.82 - Altered mental status, unspecified Status: Acute Assessment and Plan: Transfer to tertiary care facility for further diagnostic testing (2) Dens fracture: Code(s): S12.110A - Anterior displaced Type II dens fracture, initial encounter for closed fracture Status: Acute (3) Hypertension: Code(s): I10 - Essential (primary) hypertension Status: Acute (4) UTI (urinary tract infection): Code(s): N39.0 - Urinary tract infection, site not specified Status: Acute Plan Disposition: Discharged to [facility] Quality VTE Prophylaxis VTE prophylaxis: mechanical ordered -Patient's previous records reviewed on admission -ER notes reviewed in detail on admission -discussed all findings and current treatment plan with patient/Family/POA -Consultations reviewed for recommendations -Patient's disposition for safe discharge discussed with case work aide Dictation performed by [employer] direct speech recognition software, therefore medical certification specialist variants and typographical errors may occur. Hospitalist MIPS Advance Care Plan I have confirmed that the patient's Advanced Care Plan is present, code status is documented, or surrogate decision maker is listed in patient medical record.: Yes Medication Reconciliation I have utilized all available resources to obtain, update and review the patients current medications (includes all prescriptions, OTC, herbals, cannabis, and nutritional supplements).: Yes The patient is not eligible for med reconciliation; the patient is in a emergent medical situation where delaying treatment would jeopardize the patients health.: No
--- NOTE | 2025-03-26 11:31 | PC.NURSE ---
Called April [facility] regarding consent to transfer, left message for return call to facility r/t her loved one.
--- NOTE | 2025-03-26 11:41 | PC.NURSE ---
COSMO returned call and gave verbal consent to send via ambulance to [facility].
--- NOTE | 2025-03-26 11:44 | PC.NURSE ---
Recieved call for room 206 bed 1 at [facility].
--- NOTE | 2025-03-26 12:11 | PM.TDS ---
Transfer Discharge Sum: Prov Provider Date of admission: 03/25/25 15:19 Primary care physician: Julio Manriquez MD Admitting clinician: Amee Wiseman MD Attending physician on admission: Amee Wiseman Attending physician on discharge: Amee Wiseman Discharging clinician: Yanet Do Anticipated date of transfer: 03/26/25 Receiving physician/facility: [facility] DS: Admitting Diagnosis Discharge Date 03/26/2025 Admitting Diagnosis Altered mental status DS: Discharge Diagnosis Discharge Diagnosis (1) Altered mental status: Code(s): R41.82 - Altered mental status, unspecified Status: Acute Assessment and Plan: Transfer to tertiary care facility for further diagnostic testing (2) Dens fracture: Code(s): S12.110A - Anterior displaced Type II dens fracture, initial encounter for closed fracture Status: Acute Assessment and Plan: c-collar at all times F/U with neurosurgery outpatient as scheduled pain management (3) Hypertension: Code(s): I10 - Essential (primary) hypertension Status: Acute (4) UTI (urinary tract infection): Code(s): N39.0 - Urinary tract infection, site not specified Status: Acute Plan Disposition: Discharged to [facility] Transfer Discharge Sum: Med Medications Active and Home Medications: Home Medications acetaminophen 500 mg oral powder packet 1,000 mg PO Q6H PRN pain 03/10/25 [History Confirmed 03/25/25] amlodipine 10 mg tablet 10 mg PO DAILY 03/10/25 [History Confirmed 03/25/25] aspirin 81 mg chewable tablet 81 mg PO DAILY 03/10/25 [History Confirmed 03/25/25] cephalexin 500 mg capsule 500 mg PO Q12H 03/10/25 [History Confirmed 03/25/25] docusate sodium 100 mg capsule 100 mg PO BID 03/10/25 [History Confirmed 03/25/25] levetiracetam 250 mg tablet (Keppra) 1,500 mg PO DAILY 03/10/25 [History Confirmed 03/25/25] oxycodone 5 mg tablet 5 mg PO Q6H PRN pain 03/10/25 [History Confirmed 03/25/25] polyethylene glycol 3350 17 gram/dose oral powder (ClearLax) 17 g PO DAILY 03/10/25 [History Confirmed 03/25/25] potassium chloride 10 mEq capsule,extended release 10 meq PO DAILY 03/10/25 [History Confirmed 03/25/25] prasugrel HCl 10 mg tablet (Effient) 10 mg PO DAILY 03/10/25 [History Confirmed 03/25/25] primidone 250 mg tablet 250 mg PO QID 03/10/25 [History Confirmed 03/25/25] topiramate 25 mg tablet (Topamax) 25 mg PO HS 03/10/25 [History Confirmed 03/25/25] acetaminophen 500 mg capsule 1,000 mg PO Q6H PRN fever or pain 03/25/25 [History Confirmed 03/25/25] Active Medications Acetaminophen (Acetaminophen 500 Mg Tablet) 1,000 mg PO Q6H PRN PRN Reason: fever or pain 1-3 Amlodipine Besylate (Amlodipine Besylate 5 Mg Tablet) 10 mg PO DAILY [facility] Aspirin (Aspirin 81 Mg Chewable Tablet) 81 mg PO DAILY [facility] Carvedilol (Carvedilol 6.25 Mg Tablet) 6.25 mg PO Q12HR [facility] Docusate Sodium (Docusate Sodium 100 Mg Capsule) 100 mg PO BID [facility] Sodium Chloride (Normal Saline Iv) 1,000 mls @ 100 mls/hr IV CONT .Q10H [facility] Last Admin: 03/26/25 03:31 Dose: 100 mls/hr Ceftriaxone Sodium (Rocephin 1 Gm/Ns 50 Ml) 1 gm in 50 mls @ 100 mls/hr IVPB Q24H [facility] Levetiracetam (Levetiracetam 500 Mg Tablet) 1,500 mg PO DAILY [facility] Ondansetron HCl (Ondansetron Inj 4 Mg/2 Ml Vial) 4 mg IV PUSH Q6H PRN PRN Reason: Nausea And Vomiting Oxycodone HCl (Oxycodone Hcl (*Crx) 5 Mg Tab Ir) 5 mg PO Q6H PRN PRN Reason: pain 7-10 Last Admin: 03/25/25 23:54 Dose: 5 mg Polyethylene Glycol (Polyethylene Glycol 3350 17 Gm Powd.Pack) 17 gm PO DAILY [facility] Potassium Chloride (Potassium Chloride 10 Meq Er Tablet) 10 meq PO DAILY [facility] Prasugrel (Prasugrel Hcl 10 Mg Tablet) 10 mg PO DAILY [facility] Primidone (Primidone 250 Mg Tablet) 250 mg PO QID [facility] Last Admin: 03/25/25 20:45 Dose: 250 mg Topiramate (Topiramate 25 Mg Tablet) 25 mg PO HS JAYDEN Last Admin: 03/25/25 20:46 Dose: 25 mg Transfer Discharge Sum: Hosp Hospital Course Hospital course: Patient is a 74-year-old female who presented to the emergency department from a snf facility due to altered mental status and confusion. Patient unable to answer questions most information is taken from the medical records. patient on March 10, 2025 had a fall at her home at which time she had suffered a dens 3 fracture of the C1-C2 choose evaluated by a neurosurgeon and placed in a cervical collar due to inability care for self at home she was sent to a rehab center. Patient arrived to our emergency department today per staff at the skilled facility patient was alert and oriented times for feeding herself when they noticed she started having altered mental status and stopped communicating. Per the records patient had been getting treated for a urinary tract infection that did not appear to be clearing had been given 3 rounds of Keflex UA in the emergency department showed clear urine with leukocytes, WBCs high and trace bacteria however do not have records from previous UA. a CT head had been completed which showed no acute intracranial findings, chest x-ray with no acute cardiopulmonary disease, and a repeat cervical spine showed no change to subacute dens fracture. patient was then admitted to the medical unit for further evaluation and treatment and placed on IV Rocephin. upon evaluation of patient Alert to name and is eye tracking, she will squeeze light with bilateral hands when asked and did respond to leg pushes with minimal resistance. Records from snf facility reported past medical history of a subdural and subarachnoid hemorrhage, migraines, tremors, hypertension, HLD, CKD, anemia, and previous dysphagia. patient is on Keppra but unknown underlying reason unless she may have a history of seizures not reported. patient with sinus tachycardia but unable to swallow oral medication will give IV metoprolol to help control. due to patient's new acute altered mental status some concern for possible seizure postictal state or stroke but unable to get diagnostic testing needed at this facility called for transfer to a tertiary care facility. CTA head/neck pending at time of transfer. Unable to perform MRI at current facility. Patient will likely need a neurological work-up including MRI, EEG, ECHO with consult to neurology and possible swallowing evaluation if she continues to have difficulty swallowing. I have held off on administering any plavix due to HX of subarachnoid and subdermal hemorrhage. Time Spent with Patient Time attestation: Total time spent providing and/or coordinating transfer services: Total time spent: Greater than 30 minutes Exam Const: General: comfortable and no acute distress Orientation/consciousness: oriented to person Other: Alert x1 to name but not conversing is tracking with eyes HENMT: Ears: TM's normal bilaterally Face/Nose/Sinus: Normal nares present Mouth: Yes moist mucous membranes Eyes: General: appearance normal, both eyes and all related structures Sclera: sclerae normal Pupils: Equal, round and reactive pupils present Neck: Neck: supple and no JVD Resp: Effort & Inspection: normal respiratory effort Auscultation: clear to auscultation bilaterally Cardio: Rate: tachycardic GI: Auscultation: normal bowel sounds Urinary Catheter: Urinary Catheter: patent and draining and urine clear Skin: General skin exam: normal color and no rashes or lesions noted Wounds: no wounds Neuro: General: oriented to person, Normal light touch and pain sensation and Unable to assess gait Cranial nerves: Yes facial sensation intact/muscles of mastication intact and Yes Equal, round and reactive pupils present Speech: aphasia Gait exam (Neuro): Unable to assess gait Motor exam (neuro): Abnormal motor strength present (1/5 strength to upper and lower extremities) Sensory Exam: normal sensation Other: Alert to self will follow with eye tracking but not conversing. minimal strength to upper and lower extremities but did follow command to squeeze hands. No facial drop but would not smile when asked Extrem: General: normal to inspection Psych: Other: Unable to assess DS: Data Data Completed and Pending Labs on day of discharge: Labs from last 24 hours 03/26/25 03/25/25 03/25/25 09:21 15:02 12:47 WBC 7.7 9.1 RBC 3.05 L 3.50 L Hgb 8.1 L 9.3 L Hct 26.6 L 30.7 L MCV 87.2 87.7 MCH 26.6 L 26.6 L MCHC 30.5 L 30.3 L RDW 17.3 H 17.7 H Plt Count 300 340 MPV 9.0 L 9.4 Immature Gran % (Auto) 0.5 H Neut % (Auto) 71.1 H Lymph % (Auto) 19.2 [place] % (Auto) 8.9 Eos % (Auto) 0.1 L Baso % (Auto) 0.2 Lymph # (Auto) 1.75 [place] # (Auto) 0.81 Eos # (Auto) 0.01 L Baso # (Auto) 0.02 Abs Immat Gran (auto) 0.05 H Absolute Neuts (auto) 6.46 Absolute Nucleated RBC 0.00 Nucleated RBC % 0.0 Sodium 142 141 Potassium 4.0 4.2 Chloride 115 H 110 H Carbon Dioxide 22 24 Anion Gap 5 7 BUN 16 18 H Creatinine 0.80 0.80 Estim Creat Clear Calc 48 Not Reportable Estimated GFR > 60 > 60 Glucose 99 108 Calculated Osmolality 295 294 Calcium 8.0 L 8.6 Magnesium 2.3 Total Bilirubin 0.5 0.4 AST 40 H 39 H ALT 16 16 Alkaline Phosphatase 161 H 195 H Total Protein 7.6 8.6 H Albumin 3.2 L 3.7 Urine Color Yellow Urine Appearance Clear Urine pH 5.5 Ur Specific [place] >= 1.030 H Urine Protein 1+ H Urine Glucose (UA) Negative Urine Ketones 1+ H Ur Blood (Man) 2+ H Urine Nitrate Negative Urine Bilirubin 1+ H Urine Urobilinogen 1.0 Ur Leukocyte Esterase Trace H Urine RBC 3-5 H Urine WBC 21-30 H Ur Squamous Epith Cells Few Urine Bacteria Trace Imaging Radiologist's impression: CT scan - head: Radiologist's impression: CT brain wo con Ordering provider: Leonidas Martin MD History: 74 years Female with . altered mental status, fall . Comparison: None. Technique: CT of the head without contrast. Radiation reduction technique utilized. The dose-length product was 681 mGy-cm. FINDINGS: BRAIN PARENCHYMA AND CSF SPACES: Mild leukoaraiosis and diffuse cortical atrophy. Mild atheromatous disease. No midline shift, mass effect or hemorrhage. The brain parenchyma and CSF spaces are otherwise normal. VISUALIZED PARANASAL SINUSES: Well aerated. MASTOIDS: Well aerated. BONES: Postoperative changes in the left frontal bone. The bones appear intact. SOFT TISSUES: Visualized nasopharynx is normal. Superficial soft tissues are normal. IMPRESSION: No acute intracranial findings.
[2025-03-26] MEDS: METOPROLOL TARTRATE INJ 5 MG/5 ML VIAL IV PUSH (12:17)
--- NOTE | 2025-03-26 12:19 | PC.NURSE ---
Called [facility] for BLS transfer to [facility] room 206 bed 1.
--- NOTE | 2025-03-26 12:23 | PC.NURSE ---
Called [facility] for transfer to [facility] room 206.
--- NOTE | 2025-03-26 12:46 | PC.NURSE ---
[facility] here at this time for transfer to [facility]. [facility] canceled at this time.
--- NOTE | 2025-03-26 13:47 | PC.NURSE ---
Pt transferred to [facility]. VSS.
== END 2025-03-26 12:45 | disposition short-term general hospital (02) ==
LOC: CHSED 13:19 → CHS2ND 15:40
PROVIDERS: Nurse Practitioner Family; Admitting Provider Internal Medicine; Emergency Provider Family Medicine; PCP Family Medicine; Visit Provider Internal Medicine
DX: R41.82 Altered mental status, unspecified (principal); N39.0 Urinary tract infection, site not specified; S12.110A Anterior displaced Type II dens fracture, initial encounter for closed fracture; W19.XXXA Unspecified fall, initial encounter; I25.10 Atherosclerotic heart disease of native coronary artery without angina pectoris; I12.9 Hypertensive chronic kidney disease with stage 1 through stage 4 chronic kidney disease, or unspecified chronic kidney disease; N18.9 Chronic kidney disease, unspecified; E78.5 Hyperlipidemia, unspecified; G43.909 Migraine, unspecified, not intractable, without status migrainosus; R25.1 Tremor, unspecified; Z79.82 Long term (current) use of aspirin; Z79.899 Other long term (current) drug therapy; Z86.79 Personal history of other diseases of the circulatory system
CPT/HCPCS: 36415; 70450; 70496; 70498; 71045; 72125; 80053; 81001; 83735; 85025; 85027; 87040; 87086; 93005; 96361; 96365; 96375; 99285; A9270; G0378; J0696; J7030; Q9967

== ENCOUNTER 2025-03-26 13:36 | Inpatient (IN) | payer MEDICARE, SELFPAY ==
[2025-03-26] VITALS (15 sets, daily range): BP systolic 127–157; BP diastolic 71–83; PULSE 102–112; RESP 16–24; TEMP 37.2–39.6; O2SAT 98–100; BMI 26.4
--- NOTE | 2025-03-26 | ECHO_ITS ---
Patient Info Name: Deedee Duran Age: 74 years : 1950 Gender: Female Ht: 66 in Wt: 163 lbs BSA: 1.87 m2 HR: 106 bpm BP: 157 / 83 mmHg Heart Rhythm: Sinus Rhythm Technical Quality: Good Exam Date: 03/26/2025 3:13 PM Patient Status: I Admit Date: 03/26/2025 Exam Type: CA echo doppler w bubble study Complete two-dimensional, color flow and Doppler transthoracic echocardiogram is performed with agitated saline. Staff Referring Physician: Yanet [employer]: Estephania Jernigan Attending Provider: Tessie Soriano MD Summary 1. Left ventricular chamber dimension is mildly enlarged. 2. Left ventricular systolic function is normal, estimated at 55-60. 3. There is moderately increased left ventricular wall thickness. 4. The left ventricular diastolic function is grade I diastolic dysfunction. 5. The inferoseptal wall, basal anteroseptal, and mid anteroseptal are hypokinetic. 6. Left atrial chamber dimension is mildly enlarged. 7. Intact interatrial septum visualized by color flow and agitated saline imaging. 8. There is mild mitral valve regurgitation. 9. There is mild tricuspid valve regurgitation. 10. There is mild pulmonic regurgitation. Left Ventricle Left ventricular chamber dimension is mildly enlarged. Left ventricular systolic function is normal, estimated at 55-60. There is moderately increased left ventricular wall thickness. The left ventricular diastolic function is grade I diastolic dysfunction. The inferoseptal wall, basal anteroseptal, and mid anteroseptal are hypokinetic. All other [place]urn appear normal. Right Ventricle Right ventricular chamber dimension is normal. Right ventricular systolic function is normal. Left Atria Left atrial chamber dimension is mildly enlarged. Right Atria Right atrial chamber dimension is normal. Atrial Septum Intact interatrial septum visualized by color flow and agitated saline imaging. Aortic Valve The aortic valve is trileaflet. There is mild aortic valve sclerosis. There is no aortic valve stenosis. There is trace aortic valve regurgitation. Pulmonic Valve The pulmonic valve is normal. There is no pulmonic valve stenosis. There is mild pulmonic regurgitation. Mitral Valve The mitral valve has normal leaflets. There is no mitral valve stenosis. There is mild mitral valve regurgitation. Tricuspid Valve The tricuspid valve leaflets are normal. There is no significant tricuspid valve stenosis. There is mild tricuspid valve regurgitation. No pulmonary hypertension, estimated pulmonary arterial systolic pressure is 23 mmHg. Pericardium/Pleural The pericardium appears normal. There is no pericardial effusion. Inferior Vena Cava Normal inferior vena cava with >50% collapse upon inspiration consistent with normal right atrial pressure, 5 mmHg. Aorta The aortic root size at the sinus of Valsalva is normal. Left Ventricular Outflow Tract Name Value Normal LVOT 2D LVOT Diameter 2.1 cm LVOT Doppler LVOT Peak Velocity 98 cm/s LVOT Peak Gradient 4 mmHg LVOT Mean Gradient 2 mmHg LVOT VTI 13 cm LVOT VTI/AV VTI Ratio 0.6 LVOT Stroke Volume 48 ml LVOT CO 12.7 l/min LVOT CI 6.8 l/min/m2 Pulmonic Valve Name Value Normal RVOT Doppler RVOT Peak Velocity 107 cm/s RVOT Peak Gradient 5 mmHg PV Doppler PV Peak Velocity 135 cm/s PV Peak Gradient 7 mmHg Mitral Valve Name Value Normal MV Diastolic Function MV E Peak Velocity 79 cm/s MV A Peak Velocity 86 cm/s MV E/A 0.9 MV Decel Time (PW) 174 ms MV Annular TDI MV E/e' (Septal) 25.9 MV E/e' (Lateral) 10.9 MV E/e' (Average) 18.4 Tricuspid Valve Name Value Normal TV Regurgitation Doppler TR Peak Velocity 214 cm/s TR Peak Gradient 18 mmHg Estimated PAP/RSVP RA Pressure 5 mmHg <=5 PA Systolic Pressure 23 mmHg <36 RV Systolic Pressure 23 mmHg <36 TV Annular TDI TV Lateral Alicia s' Velocity 13.0 cm/s >=9.5 Aortic Valve Name Value Normal AV Doppler AV Peak Velocity 152 cm/s AV Peak Gradient 9 mmHg AV Mean Gradient 5 mmHg AV VTI 23 cm AV Area (Cont Eq VTI) 2.1 cm2 >=3.0 AV Area (Cont Eq Johnny) 2.3 cm2 AV DI (Johnny) 0.64 AV Regurgitation 2D LVOT Area 3.6 cm2 Ventricles Name Value Normal LV Dimensions 2D/MM IVS Diastolic Thickness (2D) 1.2 cm 0.6-1.0 LVID Diastole (2D) 4.4 cm 3.8-5.2 LVIW Diastolic Thickness (2D) 1.2 cm 0.6-0.9 LVID Systole (2D) 3.3 cm 2.2-3.5 LVOT Diameter 2.1 cm LV Mass (2D Cubed) 187.77 g 67.00-162.00 LV Mass Index (2D Cubed) 100 g/m2 43-95 Relative Wall Thickness (2D) 0.54 <=0.42 LV Fractional Shortening/Ejection Fraction 2D/MM LV Fractional Shortening (2D) 25 % 27-45 LV EF (2D Teichholz) 49 % LV Diastolic Volume (4C MOD) 111 ml LV EF (4C MOD) 42 % LV Diastolic Volume (2C MOD) 204 ml LV EF (2C MOD) 62 % LV Diastolic Volume (BP MOD) 163 ml 46-106 LV Diastolic Volume Index (BP MOD) 87 ml/m2 29-61 LV Systolic Volume (BP MOD) 76 ml 14-42 LV Systolic Volume Index (BP MOD) 41 ml/m2 8-24 LV EF (BP MOD) 54 % 54-74 LV Diastolic Length (4C) 8.1 cm LV Systolic Length (4C) 6.5 cm LV Stroke Volume (4C MOD) 46 ml LV CO (BP MOD) 0.0 l/min LV CI (BP MOD) 0.0 l/min/m2 Atria Name Value Normal LA Dimensions LA Volume (4C A-L) 45 ml LA Volume (BP A-L) 57 ml RA Dimensions RA Systolic Major [place] Length (4C) 5.3 cm 2.2-2.8 RA Area (4C) 13.5 cm2 <=18.0 Wall Motion Scoring Wall Motion Scoring Index: 1.29 Report Signatures
--- NOTE | ~2025-03-26 | CT_ITS ---
EXAMINATION: CT chest abdomen pelvis wo con DATE: 03/28/2025 11:26 INDICATION: Altered mental status. Fever of unknown origin. TECHNIQUE: Computed tomography (CT) of the chest, abdomen, and pelvis was performed without intraveno us contrast. Automated exposure control and iterative reconstruction technique were employed. The dos e-length product was 799.89 mGy-cm. COMPARISON: None FINDINGS: CHEST CT: Lungs are clear with no pneumonia, suspicious pulmonary nodules, pulmonary edema or pleural effusion. Mild cardiomegaly. Atherosclerotic coronary artery calcifications and change of prior median sternot salena and coronary artery bypass grafting. No pericardial effusion. Thoracic aorta is normal in caliber . No pathologically enlarged thoracic lymphadenopathy. 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 Mild thoracic spondylosis. ABDOMEN/PELVIS CT: High attenuation sludge versus vicariously excreted contrast in the otherwise normal-appearing nondis tended gallbladder. Liver, spleen, pancreas, right kidney and bilateral adrenal glands are normal. A few nonobstructing stones in the left kidney the largest measuring 1.3 cm. Post catheter within the decompressed bladder. There is retained oral contrast material in the colon. No bowel obstruction. Mu ltiple diverticula along the sigmoid colon without adjacent inflammatory stranding to suggest diverti culitis. There is however gas and small amount of dependently thickened material within a 5.4 x 3.2 x 6.0 cm cavity in the lower pelvis which communicates with the sigmoid colon through a 1.3 x 1.8 cm d efect in the wall of the colon consistent with a locally contained bowel perforation. Moderate lumbar spondylosis with L5-S1 anterior spinal fusion with interbody bone graft cages. There is also been pr ior right hemilaminotomy at L5-S1. IMPRESSION: 1. Sigmoid diverticulosis with 6.0 x 5.4 x 3.2 cm gas and feculent material containing cavity consist ent with a contained bowel perforation which communicates to the sigmoid colon through a 1.8 x 1.3 cm defect in the wall of the colon. 2. Nonobstructing left nephrolithiasis. 3. Mild cardiomegaly. No acute cardiopulmonary disease. Reviewed, dictated and finalized at location A. IMPRESSION: 1. Sigmoid diverticulosis with 6.0 x 5.4 x 3.2 cm gas and feculent material con taining cavity consistent with a contained bowel perforation which communicates to the sigmoid colon through a 1.8 x 1.3 cm defect in the wall of the colon. 2. Nonobstructing left nephrolithiasis. 3. Mild cardiomegaly. No acute cardiopulmonary disease.
--- NOTE | ~2025-03-26 | XR_ITS ---
Portable chest x-ray Comparison: 03/31/2025 Clinical History: Respiratory failure Findings: Right-sided PICC line in place. Lungs are clear, without focal consolidation or pleural ef fusion. Cardiomediastinal silhouette is stable, status post cardiac surgery. Bones and soft tissues are unremarkable. Impression: Clear lungs. Right-sided PICC line. Reviewed, dictated and finalized at location M. Impression: Clear lungs. Right-sided PICC line.
--- NOTE | ~2025-03-26 | XR_ITS ---
CHEST RADIOGRAPH CLINICAL HISTORY: Impending Respiratory failure . COMPARISON: 03/30/2025 TECHNIQUE: Single portable view of the chest. FINDINGS Sternal wires and mediastinal clips are identified, the wires are midline and intact. Right-sided PICC line tip projecting over the cavoatrial junction. Endotracheal tube is identified with its tip projecting approximately 3-4 cm above the base of the ca gege. Nasogastric tube identified with its tip extending below the left hemidiaphragm, presumably within th e stomach. Clip projecting over the left atrial appendage. Coronary artery stents are also noted. The remainder of the cardiomediastinal silhouette is otherwise unremarkable. Improved aeration of the bilateral lung enamorado when compared with previous days examination. IMPRESSION: The lungs are now clear. Supportive lines and tubes in good position. Reviewed, dictated and finalized at location A.
--- NOTE | ~2025-03-26 | MR_ITS ---
MRI of the cervical spine Clinical History: Dens fracture Technique: Axial T2-weighted and gradient images, and sagittal T1-weighted, T2-weighted, and STIR bennie ges were acquired. COMPARISON: CT scan dated 03/25/2025 Findings: Transverse fracture the base of the odontoid process is present, possibly extending just in to the C2 vertebral body. There is minimal anterior displacement of the odontoid process relative to the C2 vertebral body. There is suggestion of developing sclerosis about the fracture margins, with m inimal marrow edema present. This likely represents a late subacute fracture. Anterior fusion has a C 5-C6. No other fracture or subluxation evident. No suspicious bone marrow signal abnormality seen oth erwise. At C2-C3, there is minimal disc bulge. No definite canal stenosis, cord compression, or neural forami nal narrowing. At C3-C4, there is prominent posterior disc protrusion, resulting in mild canal stenosis and minimal flattening the ventral cord. There is right neural foraminal narrowing. Possible mild left neural for aminal narrowing. At C4-C5, there is minimal disc osteophyte convex. There is bilateral neural foraminal narrowing, rig ht worse than left. No canal stenosis or cord compression. At C5-C6, there is no disc bulge or herniation. No spinal canal stenosis or cord compression. There i s probable bilateral neural foraminal narrowing. At C6-C7, there is degenerative disc narrowing with mild posterior disc protrusion. There is severe b ilateral neural foraminal narrowing. No canal stenosis or cord compression. No abnormal signal seen. Paravertebral soft tissues are otherwise unremarkable. Impression: Fractured the base of the odontoid process possibly extending from the C2 vertebral body detailed abo ve, most compatible with acute fracture. There is minimal marrow edema and suggestion of possible ear ly cortication along the fracture margins. Alignment appears unchanged as compared to prior CT scans. Anterior fusion of C5 and C6. Moderate to advanced degenerative spondylosis otherwise, as detailed above, with multilevel neural fo raminal narrowing. Reviewed, dictated and finalized at location M. Impression: Fractured the base of the odontoid process possibly extending from the C2 verte bral body detailed above, most compatible with acute fracture. There is minimal marrow edema and suggestion of possible early cortication along the fracture m argins. Alignment appears unchanged as compared to prior CT scans. Anterior fusion of C5 and C6. Moderate to advanced degenerative spondylosis otherwise, as detailed above, wit h multilevel neural foraminal narrowing.
--- NOTE | ~2025-03-26 | XR_ITS ---
EXAMINATION: XR chest port-a-cath/central DATE: 03/29/2025 06:08 INDICATION: Endotracheal tube placement. Central line placement. TECHNIQUE: frontal view of the chest was obtained. COMPARISON: Chest radiograph dated 03/29/2025 FINDINGS: Endotracheal tube tip 3.8 cm above the raji. Nasogastric tube tip in proximal side port in the body the stomach. Right subclavian central venous catheter with distal tip projecting across the midline, likely within the left brachiocephalic vein. Unchanged mild elevation the left hemidiaphragm. No focal airspace opacities, pulmonary edema, pleura l effusion or pneumothorax. Heart size is normal. Median sternotomy wires, ostial markers and mediast inal surgical clips consistent with prior coronary artery bypass grafting. There is also been prior c oronary artery bypass grafting. Left atrial appendage clipping. Prominent left renal stone projects o f the left upper quadrant. Instrumented lower cervical anterior spinal fusion. IMPRESSION: 1. Unchanged mild elevation left hemidiaphragm. No acute cardiopulmonary disease. 2. Lines and tubes as detailed above including a right subclavian central venous catheter with distal tip crossing midline into the left brachiocephalic vein. Reviewed, dictated and finalized at location A. IMPRESSION: 1. Unchanged mild elevation left hemidiaphragm. No acute cardiopulmonary diseas e. 2. Lines and tubes as detailed above including a right subclavian central venou s catheter with distal tip crossing midline into the left brachiocephalic vein.
--- NOTE | ~2025-03-26 | MR_ITS ---
EXAMINATION: MR brain/brain stem wo/w con DATE: 03/27/2025 14:26 INDICATION: Altered mental status and aphasia. Assess for stroke. TECHNIQUE: Magnetic resonance imaging (MRI) of the brain and brainstem was performed without and with 15 mL ProHance intravenous contrast. Sequences included sagittal and axial T1-weighted SE, axial dif fusion-weighted FS SE, axial 3D SWAN, axial T2-weighted FLAIR, and axial T2-weighted FSE. Postcontras t axial, sagittal and coronal T1-weighted SE was obtained. Apparent diffusion coefficient (ADC) maps were created. COMPARISON: Head CT and CT angiogram dated 03/26/2025 FINDINGS: Prior left frontal craniotomy. There are no areas of restricted diffusion to suggest acute infarction . No intracranial hemorrhage or abnormal intracranial mass lesion. There is minimal periventricular n onspecific increased T2-weighted signal intensity in the cerebral white matter, predominantly involvi ng the deep and periventricular white matter. There are no intraparenchymal signal abnormalities seen on the other pulse sequences. The ventricles are symmetric and normal in size. There are no abnormal extra-axial fluid collections. Flow voids are seen in the cerebral arteries on the T2-weighted seque nces consistent with their expected patency. Visualized orbits and soft tissues are unremarkable. The re are no areas of abnormal enhancement on the post contrast images although the post contrast images are moderately limited by motion artifact.. IMPRESSION: 1. Normal aging brain with minimal periventricular calcific white matter T2 hyperintensity consistent with chronic small vessel ischemic disease. No acute intracranial process. Reviewed, dictated and finalized at location A. IMPRESSION: 1. Normal aging brain with minimal periventricular calcific white matter T2 hyp erintensity consistent with chronic small vessel ischemic disease. No acute int racranial process.
--- NOTE | ~2025-03-26 | XR_ITS ---
MODIFIED ESOPHAGRAM HISTORY: Dysphagia. TECHNIQUE: Modified barium esophagram was performed on 03/27/2025. I administered fluoroscopy and perf ormed the exam with speech pathologist. Patient was seated for lateral fluoroscopic imaging for meena stion of thin liquids, pudding, solids and quantified amounts, followed by thin liquids in uncontroll ed amounts. This was recorded on tape. A single fluoroscopic spot image was also recorded. The DAP fo r this procedure was 1.923 Gycm2. The amount of fluoroscopy time used during this procedure was 3.6 m inutes. FINDINGS: Oral stage: Slow oral transit and bolus preparation. Pharyngeal stage: Reduced laryngeal elevation. There is intermittent laryngeal penetration, unclear w hether all was subsequently cleared or if there was a minimal amount of aspiration. Cervical/esophageal stage: Adequate function. IMPRESSION: Oropharyngeal dysphagia with intermittent laryngeal penetration with indeterminate/possib le minimal aspiration. Please correlate with speech pathologist findings and specific feeding recomm endations. Reviewed, dictated and finalized at location A. IMPRESSION: Oropharyngeal dysphagia with intermittent laryngeal penetration wit h indeterminate/possible minimal aspiration. Please correlate with speech path ologist findings and specific feeding recommendations.
--- NOTE | ~2025-03-26 | XR_ITS ---
EXAMINATION: XR chest PICC line DATE: 03/29/2025 09:26 INDICATION: PICC line placement TECHNIQUE: frontal view of the chest was obtained. COMPARISON: Chest radiograph dated 03/29/2025 at 6:04 AM FINDINGS: New right upper extremity peripherally inserted central venous catheter (PICC) tip at the caudal sup erior vena cava. Unchanged right subclavian central venous catheter which crosses the midline with di stal tip in the left brachiocephalic vein. Endotracheal tube tip 3.3 cm above the raji. Nasogastric tube tip in proximal side port in the body of the stomach. Unchanged mild elevation left hemidiaphragm. Lungs remain clear with no focal airspace opacities, pul monary edema, pleural effusion or pneumothorax. Heart size is normal. Median sternotomy wires, ostial markers and mediastinal surgical clips consistent with prior coronary artery bypass grafting. There is also coronary artery calcification. Left nephrolithiasis. Oral contrast material to splenic flexur e the colon. IMPRESSION: 1. Right upper extremity central venous PICC with distal tip at the caudal superior vena cava. 2. No acute cardiopulmonary disease. 3. Left nephrolithiasis. Reviewed, dictated and finalized at location A. IMPRESSION: 1. Right upper extremity central venous PICC with distal tip at the caudal supe rior vena cava. 2. No acute cardiopulmonary disease. 3. Left nephrolithiasis.
--- NOTE | ~2025-03-26 | CT_ITS ---
EXAMINATION: CT brain wo con DATE: 04/10/2025 10:32 INDICATION: Altered mental status. Facial droop. TECHNIQUE: Computed tomography (CT) of the head was performed without intravenous contrast. Sagittal and coronal reconstructions were performed. The mA was adjusted according to patient size. Iterative reconstruction technique was employed. The dose-length product was 605.33 mGy-cm. COMPARISON: head CT dated 03/29/2025 FINDINGS: Postoperative change of prior left frontal craniotomy which is fixed with plate and screws. No acute intracranial hemorrhage, acute infarction or abnormal extra axial fluid collection. There is mild sca ttered white matter hypoattenuation consistent with chronic small vessel ischemic disease. Symmetric prominence of the sulci and ventricles consistent with mild to moderate age-appropriate diffuse cereb ral volume loss. No mass/mass effect. The orbits, paranasal sinuses and mastoid air cells are normal. IMPRESSION: 1. No acute intracranial process. 2. Age-related changes including mild to moderate diffuse volume loss and mild scattered white matter attenuation consistent with chronic small vessel ischemic disease. 3. Chronic left frontal craniotomy. Reviewed, dictated and finalized at location A. IMPRESSION: 1. No acute intracranial process. 2. Age-related changes including mild to moderate diffuse volume loss and mild scattered white matter attenuation consistent with chronic small vessel ischemi c disease. 3. Chronic left frontal craniotomy.
--- NOTE | ~2025-03-26 | XR_ITS ---
[id number] Ordering provider: Caro Vazquez APRN History: . right neck pain and numbness . Comparison: None. FINDINGS: VERTEBRAL BODIES: Loss of lordosis. The area of the dens is not very clear. If clinical concern is pr esent. MRI is advised. The head is tilted to the left. Postoperative changes seen at the level of C5- C6. Degenerative changes of the spine. Otherwise, Normal height and alignment. No visible fracture or subluxation. DISK SPACES: Narrowing of the disc C2-C3, and C5-C6. Multilevel uncovertebral joint osteoarthritic ch anges. PARASPINOUS SOFT TISSUES: No prevertebral soft tissue swelling. IMPRESSION: No definite acute osseous abnormality cervical spine. C2 is not very clear. Multilevel degenerative disc disease. Reviewed, dictated and finalized at location A.
--- NOTE | ~2025-03-26 | XR_ITS ---
Portable chest x-ray Comparison: 04/02/2025 Clinical History: Respiratory failure Findings: Right-sided PICC line remains in place. Lungs are clear, without focal consolidation or pl eural effusion. Cardiomediastinal silhouette is stable, with stable prominence of the superior media stinum. Bones and soft tissues are unremarkable. Impression: Clear lungs. Stable prominence of the superior mediastinum. Stable support line. Reviewed, dictated and finalized at location M. Impression: Clear lungs. Stable prominence of the superior mediastinum. Stable support line.
--- NOTE | ~2025-03-26 | XR_ITS ---
Portable chest x-ray Comparison: 04/01/2025 Clinical History: Respiratory failure Findings: NG tube and right-sided PICC line are in satisfactory positions. Lungs are clear, without focal consolidation or pleural effusion. Cardiomediastinal silhouette is stable. Bones and soft tiss ues are unremarkable. Impression: Clear lungs. Support tubes, as above. Reviewed, dictated and finalized at location M. Impression: Clear lungs. Support tubes, as above.
--- NOTE | ~2025-03-26 | XR_ITS ---
Exam: Abdomen 1V HISTORY: NG tube placement COMPARISON: None. TECHNIQUE: Supine images of the lower chest and upper abdomen FINDINGS: Nasogastric tube extends into the left upper quadrant, presumably within the stomach. IMPRESSION: Nasogastric tube in good position and ready for immediate use. Reviewed, dictated and finalized at location A.
--- NOTE | ~2025-03-26 | XR_ITS ---
EXAMINATION: XR chest ET placement DATE: 03/29/2025 04:04 INDICATION: Intubated TECHNIQUE: frontal view of the chest was obtained. COMPARISON: Chest radiograph dated and CT dated 03/28/2025 FINDINGS: Endotracheal tube tip 5.2 cm above the raji. Nasogastric tube tip in proximal side port in the body the stomach. Mild elevation left hemidiaphragm with minimal left basilar atelectasis. No other airsp ebony opacities, pulmonary edema, pleural effusion or pneumothorax. The cardiomediastinal silhouette is normal. Median sternotomy wires, ostial markers and mediastinal s urgical clips consistent with prior coronary artery bypass grafting. There is also been coronary monica ry stenting and left atrial appendage clipping. Large left renal stone projects of the upper pole the left kidney. Retained oral contrast serial in the colon. IMPRESSION: 1. Unchanged mild elevation left hemidiaphragm with left basilar atelectasis. Reviewed, dictated and finalized at location A.
--- NOTE | ~2025-03-26 | XR_ITS ---
CHEST RADIOGRAPH CLINICAL HISTORY: PICC line dislodgement, check placement . COMPARISON: 04/03/2025 TECHNIQUE: Single portable view of the chest. FINDINGS Sternal wires and mediastinal clips are identified, the wires are midline and intact. Clip is identified projecting over the left atrial appendage. The remainder of the cardiomediastinal silhouette is otherwise unremarkable. The lungs are clear. Inadvertent withdrawal of the PICC line, which now projects over the right subclavian vein, beyond th e origin of the right axillary vein, for which exchange over a wire is recommended for optimal radiog raphic positioning. IMPRESSION: Inadvertent withdrawal of the previously identified PICC line, which now projects over the right subc lavian vein, as detailed above. Reviewed, dictated and finalized at location A. IMPRESSION: Inadvertent withdrawal of the previously identified PICC line, which now projec ts over the right subclavian vein, as detailed above.
--- NOTE | ~2025-03-26 | US_ITS ---
EXAMINATION: US venous doppler [facility] DATE: 03/29/2025 11:28 INDICATION: Left upper limb swelling TECHNIQUE: Grayscale images without and with compression and Doppler images of the bilateral upper ex tremity veins were obtained. COMPARISON: None. FINDINGS: Noncompressible thrombosis in the left basilic and cephalic veins. The left subclavian vein, axillary vein, brachial vein, radial vein, and ulnar vein are patent. Patient is in a cervical collar preclud ing assessment of the left internal jugular vein. IMPRESSION: 1. Thrombosis of the left cephalic and basilic veins. Reviewed, dictated and finalized at location A.
--- NOTE | ~2025-03-26 | US_ITS ---
EXAMINATION: US venous doppler [facility] DATE: 04/05/2025 11:32 INDICATION: History of upper extremity DVT on the left on recent examination. TECHNIQUE: Mka scale images with and without compression and Doppler images of the right and left up per extremity veins were obtained. COMPARISON: Ultrasound dated 03/29/2025. FINDINGS: There is thrombosis of the right subclavian, axillary and basilic veins. There is thrombosis of the l eft basilic and cephalic veins as on prior examination. IMPRESSION: 1. Bilateral upper extremity venous thrombosis with deep venous thrombosis of the right subclavian an d axillary veins. Reviewed, dictated and finalized at location A. IMPRESSION: 1. Bilateral upper extremity venous thrombosis with deep venous thrombosis of t he right subclavian and axillary veins.
--- NOTE | ~2025-03-26 | CT_ITS ---
EXAMINATION: CT chest abdomen pelvis wo con DATE: 04/10/2025 10:32 INDICATION: Altered mental status. Tachycardia. TECHNIQUE: Computed tomography (CT) of the chest, abdomen, and pelvis was performed without intraveno us contrast. Automated exposure control and iterative reconstruction technique were employed. The dos e-length product was 915.45 mGy-cm. COMPARISON: 03/28/2025 FINDINGS: CHEST CT: Unchanged elevation the left hemidiaphragm. Mild dependent atelectasis in the bilateral lower lobes. No pneumonia, pulmonary edema, pleural effusion or pneumothorax. Cardiomegaly. Atherosclerotic friedman ry artery calcifications with change of prior coronary artery stenting and mediastinum and coronary a rtery bypass grafting. Left atrial appendage occlusion clip. No pericardial effusion. Thoracic aorta is normal in caliber. No pathologically enlarged thoracic lymphadenopathy. Moderate left and severe r ight glenohumeral osteoarthritis. Moderate thoracic spondylosis with unchanged mild superior endplate compression fractures at T2, T3 and T4. ABDOMEN/PELVIS CT: Liver, gallbladder, spleen, pancreas, right kidney and bilateral adrenal glands are normal. A few nonobstructing left renal stones, the largest at the upper pole measuring 1.3 cm. Interval part ial colectomy with resection of portion region of diverticulitis along the sigmoid colon along with e vacuation of the prior actual collection of feculent material. There is a suture line along the long Shepard's pouch which includes the distal sigmoid colon where there is moderate additional diverticul osis without adjacent inflammatory stranding to suggest diverticular colitis. There is a left lower q uadrant and colostomy. There is an additional anastomotic suture line along a loop of small bowel in the right lower quadrant. No bowel obstruction. Normal appendix. Gas and a Post catheter within the otherwise unremarkable bladder. The uterus is not identified and has likely been surgically resected. No abscess or free intraperitoneal gas. Moderate lumbar spondylosis with right hemilaminotomy at L5- S1 and L5-S1 anterior spinal fusion with interbody bone graft cages. IMPRESSION: 1. Change of recent partial colectomy with left lower quadrant colostomy. No abscess or bowel obstruc tion. 2. Mild cardiomegaly. No acute cardiopulmonary disease. 3. Nonobstructing nephrolithiasis. Reviewed, dictated and finalized at location A. IMPRESSION: 1. Change of recent partial colectomy with left lower quadrant colostomy. No ab scess or bowel obstruction. 2. Mild cardiomegaly. No acute cardiopulmonary disease. 3. Nonobstructing nephrolithiasis.
--- NOTE | ~2025-03-26 | XR_ITS ---
Exam: Abdomen 1V HISTORY: NG tube placement COMPARISON: None. TECHNIQUE: Supine images of the lower chest and upper abdomen FINDINGS: Nasogastric tube extends into the left upper quadrant, presumably within the stomach. IMPRESSION: Nasogastric tube in good position and ready for immediate use. Reviewed, dictated and finalized at location A.
--- NOTE | ~2025-03-26 | CT_ITS ---
EXAMINATION: CT brain wo con DATE: 03/29/2025 02:29 INDICATION: Acute facial droop TECHNIQUE: Computed tomography (CT) of the head was performed without intravenous contrast. Sagittal and coronal reconstructions were performed. The mA was adjusted according to patient size. Iterative reconstruction technique was employed. The dose-length product was 681.00 mGy-cm. COMPARISON: head CT dated 03/25/2025 and brain MR dated 03/27/2025 FINDINGS: Postoperative change of prior frontal craniotomy which is fixed with plate and screws. No acute intra cranial hemorrhage, acute infarction or abnormal extra axial fluid collection. There is mild scattere d white matter hypoattenuation consistent with chronic small vessel ischemic disease. Symmetric promi nence of the sulci and ventricles consistent with mild to moderate age-appropriate diffuse cerebral v olume loss. No mass/mass effect. The orbits, paranasal sinuses and mastoid air cells are normal. IMPRESSION: 1. No acute intracranial process. 2. Age-related changes including mild to moderate diffuse volume loss and mild scattered white matter attenuation consistent with chronic small vessel ischemic disease. 3. Chronic left frontal craniotomy. Reviewed, dictated and finalized at location A. IMPRESSION: 1. No acute intracranial process. 2. Age-related changes including mild to moderate diffuse volume loss and mild scattered white matter attenuation consistent with chronic small vessel ischemi c disease. 3. Chronic left frontal craniotomy.
--- NOTE | ~2025-03-26 | XR_ITS ---
EXAMINATION: XR abdomen gastric tube insert DATE: 04/01/2025 10:18 INDICATION: Nasogastric tube insertion TECHNIQUE: A supine view of the abdomen and lower chest was obtained for evaluation of feeding tube placement. COMPARISON: 03/30/2025 FINDINGS: Nasogastric tube tip in proximal side port in the body the stomach. Right upper extremity peripherall y inserted central venous catheter (PICC) tip at the caudal superior vena cava. No dilated loops of gas-filled bowel in the visualized abdomen. Large left renal stone in the left up per quadrant. Visualized portion of the lungs are clear with no pleural effusion. Borderline heart si ze accounting for AP technique. Median sternotomy wires and mediastinal surgical clips are seen, like ly from prior coronary artery bypass grafting. Left atrial appendage occlusion clip. Additional surgi camron clip projecting over the midline of the mid abdomen. IMPRESSION: 1. Nasogastric tube in the stomach. Reviewed, dictated and finalized at location A.
--- NOTE | ~2025-03-26 | XR_ITS ---
CHEST RADIOGRAPH CLINICAL HISTORY: Impending Respiratory failure requiring intubation . COMPARISON: 03/29/2025 TECHNIQUE: Single portable view of the chest. FINDINGS Sternal wires and mediastinal clips are identified, the wires are midline and intact. Right-sided PICC line tip projecting over the cavoatrial junction. Endotracheal tube is identified with its tip projecting approximately 3-4 cm above the base of the ca gege. Nasogastric tube identified with its tip extending below the left hemidiaphragm, presumably within th e stomach. Clip projecting over the left atrial appendage. Coronary artery stents are also noted. The remainder of the cardiomediastinal silhouette is otherwise unremarkable. Blunting of the left costophrenic sulcus suggesting a small left-sided pleural effusion. The remainder of the lungs are clear. IMPRESSION: Small left-sided pleural effusion. Supportive lines and tubes in good position. Reviewed, dictated and finalized at location A.
--- NOTE | 2025-03-26 14:12 | ADMGEN ---
This patient, Deedee Duran, was admitted to IMU Room 206-01 at 1313. Patient/family oriented to hospital policies and general routines including ID bracelet, bed and alarms, visiting hours, pain management, procedures, bathroom and other care routines, personal items, smoking policy, room service/diet, and visiting hours. Information on how to activate the Rapid Response Team has been discussed. Patient/Family are encouraged to report perceived risks to care and to ask questions if they do not understand what they are told or what they should do.
--- NOTE | 2025-03-26 14:41 | WPDNEURCNPN ---
Assessment and Plan Assessment and plan (1) Dens fracture: Code(s): S12.110A - Anterior displaced Type II dens fracture, initial encounter for closed fracture Status: Acute (2) Altered mental status: Code(s): R41.82 - Altered mental status, unspecified Status: Acute (3) Seizure disorder: Code(s): G40.909 - Epilepsy, unspecified, not intractable, without status epilepticus Status: Acute Plan 1. Status post type 3 dens fracture with fracture line extending into an involving the left C2 facet joint as well 2. Negative CT scan of the head for any hydrocephalus or bleed 3. Normal CTA of head and neck 4. Recent change in the mental status during the possibility of new etiology and possibly infection 5. No change in the medication at this particular time and a routine EEG can be obtained at the bedside to document the electrical status. Consult date: 03/26/25 HPI: Deedee Duran is a 74 year old female Admitted to the hospital on transfer. Initially she presented to emergency department from a longterm facility with complaints of change in the mental status and increasing confusion she was unable to answer any questions most information was obtained from the medical records on initial encounter as per the information available on March 10, 2025 she had a fall at her home which resulted in the fracture of the C1-C2 for which she was evaluated by a neurosurgeon and placed in cervical collar due to inability to care for herself at home she was sent to the rehab center she was sent to the emergency room from the skilled facility with complained that she was noted to have difficulties in communicating and literally stopped communication she was also receiving the treatment for UTI repeat cervical spine x-rays were negative for the acute new lesion on initial contact it was documented she was alert to the name and tracking with her eyes she was squeezing lightly with both hands but did not respond to the left portion patient has a past history of subdural and subarachnoid hemorrhage as well in addition to migraine hypertension hyperlipidemia chronic kidney disease anemia and previously documented dysphagia also patient had been taking Keppra for unclear lesion with possibility of seizures in the past the changes in the acute mental status were attributed to the possibility of the seizure and she was transferred to the ER her other problems include coronary artery disease, coarse tremors, hypertension, history of migraine, she has been taking the med on for the tremor to50mg q.i.d. in addition to topiramate 25mg at night she has also been receiving levetiracetam 1500mg daily on initial exam in the other ER she was noted early awake alert to self but I was tracking but no communication and unable to check the strength of upper and lower extremities . On initial eval in the emergency room here she is definitely anemic with hemoglobin of 8.1, electrolytes are normal with ca 8.0 and her levetiracetam level is 51.8. She had a CTA done today which was normal with a type 3 fracture of the odontoid process with minimal anterior displacement has been documented. CT of the cervical spine simply redemonstrated comminuted fracture base of the odontoid process the line extending involving the left C1-C2 facet joint with very minimal callus formation, chest x-ray is negative, head CT is negative Review of Systems Review of Systems: All systems reviewed & are unremarkable except as noted in HPI and below PMFSH Past Medical History Medical History CAD (coronary artery disease) Coarse tremors Subdural hemorrhage Subarachnoid hemorrhage Migraine Hypertension Social History Social History Second hand tobacco smoke exposure: No Alcohol intake: unknown Substance use: unknown Spiritual care concerns: No Meds Home Medications and Allergies Home Medications ?Medication ?Instructions ?Recorded ?Confirmed ?Type amlodipine 10 mg tablet 10 mg PO DAILY 03/10/25 03/26/25 History aspirin 81 mg chewable tablet 81 mg PO DAILY 03/10/25 03/26/25 History docusate sodium 100 mg capsule 100 mg PO BID 03/10/25 03/26/25 History levetiracetam 250 mg tablet 1,500 mg PO DAILY 03/10/25 03/26/25 History (Keppra) oxycodone 5 mg tablet 5 mg PO Q6H PRN pain 03/10/25 03/26/25 History polyethylene glycol 3350 17 17 g PO DAILY 03/10/25 03/26/25 History gram/dose oral powder (ClearLax) potassium chloride 10 mEq 10 meq PO DAILY 03/10/25 03/26/25 History capsule,extended release prasugrel HCl 10 mg tablet 10 mg PO DAILY 03/10/25 03/26/25 History (Effient) primidone 250 mg tablet 250 mg PO QID 03/10/25 03/26/25 History topiramate 25 mg tablet (Topamax) 25 mg PO HS 03/10/25 03/26/25 History acetaminophen 500 mg capsule 1,000 mg PO Q6H PRN fever or pain 03/25/25 03/26/25 History Allergies Allergy/AdvReac Type Severity Reaction Status Date / Time morphine Allergy Unknown Unknown Verified 03/25/25 12:49 Vital Signs Vital Signs - 24 hr 03/26/25 13:57 Temperature 37.2 C Pulse Rate 103 H Respiratory Rate 22 H Blood Pressure 157/83 H Pulse Oximetry 100 Exam Narrative: on exam today she is awake but does not follow verbal commands appropriately her eyes are open with no spontaneous nystagmus she does follow the examiner's hand in horizontal gaze again without nystagmus but she did not follow in the vertical gaze, normocephalic with no cranial bruits, she has no spontaneous movement of the upper and lower extremities and the reflexes are sluggish plantar responses are neutral she did not perform finger to nose to finger obviously.
--- NOTE | 2025-03-26 15:30 | P.HP_ITS ---
H&P: HPI History of Present Illness Date/Time: 03/26/25 15:30 Chief Complaint: Altered mental status Narrative: patient is a 74-year-old female who presented to [facility] emergency department [facility] due to altered mental status and confusion. Patient unable to answer questions most information is taken from the medical records. patient on March 10, 2025 had a fall at her home at which time she had suffered a dens 3 fracture of the C1-C2 choose evaluated by a neurosurgeon and placed in a cervical collar due to inability care for self at home she was sent to a rehab center. Patient arrived to our emergency department today per staff at the skilled facility patient was alert and oriented times for feeding herself when they noticed she started having altered mental status and stopped communicating. Per the records patient had been getting treated for a urinary tract infection that did not appear to be clearing had been given 3 rounds of Keflex UA in the emergency department showed clear urine with leukocytes, WBCs high and trace bacteria however do not have records from previous UA. a CT head had been completed which showed no acute intracranial findings, chest x- ray with no acute cardiopulmonary disease, and a repeat cervical spine showed no change to subacute dens fracture. patient was then admitted to the medical unit for further evaluation and treatment and placed on IV Rocephin. upon evaluation of patient Alert to name and is eye tracking, she will squeeze light with bilateral hands when asked and did respond to leg pushes with minimal resistance. Records from jail facility reported past medical history of a subdural and subarachnoid hemorrhage, migraines, tremors, hypertension, HLD, CKD, anemia, and previous dysphagia. patient is on Keppra but unknown underlying reason unless she may have a history of seizures not reported. patient with sinus tachycardia but unable to swallow oral medication will give IV metoprolol to help control. due to patient's new acute altered mental status some concern for possible seizure postictal state or stroke but unable to get diagnostic testing needed at this facility She was transferred to [facility] for a neurological work-up including MRI, EEG, ECHO with consult to neurology and possible swallowing evaluation if she continues to have difficulty swallowing. CTA head/neck showed Den fracture unchanged 0% carotid stenosis bilateral, but possible right tonsillar abscess. patient was admitted to the medical for further evaluation treatment plan for MRI. I have held off on administering any plavix due to HX of subarachnoid and subdermal hemorrhage. Review of Systems Review of Systems: ROS unobtainable: Yes unobtainable due to medical condition and unobtainable due to mental status COUNT INCLUDES THE [facility] Past Medical History Medical History CAD (coronary artery disease) Coarse tremors Subdural hemorrhage Subarachnoid hemorrhage Migraine Hypertension Family History Family History Mother Hypertension Spinal cord cancer Sibling Colon cancer Hypertension Other Breast cancer Social History Social History Second hand tobacco smoke exposure: No Alcohol intake: unknown Substance use: unknown Spiritual care concerns: No Meds Home Medications and Allergies Home Medications ?Medication ?Instructions ?Recorded ?Confirmed ?Type amlodipine 10 mg tablet 10 mg PO DAILY 03/10/25 03/26/25 History aspirin 81 mg chewable tablet 81 mg PO DAILY 03/10/25 03/26/25 History docusate sodium 100 mg capsule 100 mg PO BID 03/10/25 03/26/25 History levetiracetam 250 mg tablet 1,500 mg PO DAILY 03/10/25 03/26/25 History (Keppra) oxycodone 5 mg tablet 5 mg PO Q6H PRN pain 03/10/25 03/26/25 History polyethylene glycol 3350 17 17 g PO DAILY 03/10/25 03/26/25 History gram/dose oral powder (ClearLax) potassium chloride 10 mEq 10 meq PO DAILY 03/10/25 03/26/25 History capsule,extended release prasugrel HCl 10 mg tablet 10 mg PO DAILY 03/10/25 03/26/25 History (Effient) primidone 250 mg tablet 250 mg PO QID 03/10/25 03/26/25 History topiramate 25 mg tablet (Topamax) 25 mg PO HS 03/10/25 03/26/25 History acetaminophen 500 mg capsule 1,000 mg PO Q6H PRN fever or pain 03/25/25 03/26/25 History Allergies Allergy/AdvReac Type Severity Reaction Status Date / Time morphine Allergy Unknown Unknown Verified 03/25/25 12:49 Vital Signs Vital Signs - 24 hr 03/26/25 13:57 Temperature 98.9 F Pulse Rate 103 H Respiratory Rate 22 H Blood Pressure 157/83 H Pulse Oximetry 100 Exam Const: General: comfortable and no acute distress Other: Alert x1 to name but not conversing is tracking with eyes HENMT: Ears: TM's normal bilaterally Face/Nose/Sinus: Normal nares present Mouth: Yes moist mucous membranes Eyes: General: appearance normal, both eyes and all related structures Sclera: sclerae normal Pupils: Equal, round and reactive pupils present Neck: Neck: supple and no JVD Resp: Effort & Inspection: normal respiratory effort Auscultation: clear to auscultation bilaterally Cardio: Rate: tachycardic GI: GI Palp: Yes Soft to palpation Auscultation: normal bowel sounds Urinary Catheter: Urinary Catheter: patent and draining and urine clear Skin: General skin exam: normal color and no rashes or lesions noted Wounds: no wounds Neuro: General: oriented to person, Normal light touch and pain sensation and Unable to assess gait Cranial nerves: Yes facial sensation intact/muscles of mastication intact Speech: aphasia Gait exam (Neuro): Unable to assess gait Motor exam (neuro): Abnormal motor strength present (1/5 strength to upper and lower extremities) Sensory Exam: normal sensation Other: Alert to self will follow with eye tracking but not conversing. minimal strength to upper and lower extremities but did follow command to squeeze hands. No facial drop but would not smile when asked Extrem: General: normal to inspection Psych: Other: Unable to assess H&P: Results Labs Labs: Short CBC 03/25/25 03/26/25 Range/Units 15:02 09:21 WBC 9.1 7.7 (4.8-10.8) K/mm3 Hgb 9.3 L 8.1 L (11.7-13.8) g/dL Hct 30.7 L 26.6 L (35.0-42.0) % Plt Count 340 300 (150-420) K/mm3 BMP 03/25/25 03/26/25 15:02 09:21 Sodium 141 142 Potassium 4.2 4.0 Chloride 110 H 115 H Carbon Dioxide 24 22 BUN 18 H 16 Creatinine 0.80 0.80 Glucose 108 99 Calcium 8.6 8.0 L Liver Function 03/25/25 03/26/25 Range/Units 15:02 09:21 Total Bilirubin 0.4 0.5 (0.2-1.3) mg/dL AST 39 H 40 H (14-36) U/L ALT 16 16 (6-35) U/L Alkaline Phosphatase 195 H 161 H (38-126) U/L Albumin 3.7 3.2 L (3.5-5.1) g/dL Urine 03/25/25 Range/Units 12:47 Urine Color Yellow (Yellow) Urine Appearance Clear (Clear) Urine pH 5.5 (5.0-8.0) Ur Specific Mcintosh >= 1.030 H (1.010-1.020) Urine Protein 1+ H (Negative) Urine Glucose (UA) Negative (Negative) Imaging CT scan - head: Radiologist's impression: CT brain wo con Ordering provider: Leonidas Martin MD History: 74 years Female with . altered mental status, fall . Comparison: None. Technique: CT of the head without contrast. Radiation reduction technique utilized. The dose-length product was 681 mGy-cm. FINDINGS: BRAIN PARENCHYMA AND CSF SPACES: Mild leukoaraiosis and diffuse cortical atrophy. Mild atheromatous disease. No midline shift, mass effect or hemorrhage. The brain parenchyma and CSF spaces are otherwise normal. VISUALIZED PARANASAL SINUSES: Well aerated. MASTOIDS: Well aerated. BONES: Postoperative changes in the left frontal bone. The bones appear intact. SOFT TISSUES: Visualized nasopharynx is normal. Superficial soft tissues are normal. IMPRESSION: No acute intracranial findings. EXAMINATION: XR chest 1V portable 03/25/2025 13:44 INDICATION: Tachycardia. Status post fall. PROCEDURE: AP portable chest COMPARISON: No prior studies for comparison. FINDINGS: The lungs are clear. Mild cardiomegaly. There is coronary atherosclerosis. There are no pleural effusions. There is no pneumothorax suspected. Status post median sternotomy for CABG. IMPRESSION: 1: NO ACUTE CARDIOPULMONARY DISEASE. Assessment and Plan Assessment and plan (1) Altered mental status: Code(s): R41.82 - Altered mental status, unspecified Status: Acute Assessment and Plan: Patient with new onset aphasia and dysphagia post dens fracture. likely previous history of seizures on Keppra [address] head with no acute intracranial abnormalities CTA read defining dens fracture but did show possible right tonsillar abscess. Neurology consulted for any further recommendations would be appreciated. Need to R/O stroke * MRI brain/Brainstem * MRI Cervical * EEG * Keppra IV pending swallowing evaluation * No AC previous history of subarachnoid and subdural hemorrhage (2) Dens fracture: Code(s): S12.110A - Anterior displaced Type II dens fracture, initial encounter for closed fracture Status: Acute Assessment and Plan: patient's fracture has been back on February 08 seen at [facility] no surgery no intervention at the time * neurosurgery consulted there is any need for further recommendations * maintain C-collar at all times * pain management * PT/OT * monitor airway (3) Hypertension: Code(s): I10 - Essential (primary) hypertension Status: Acute Assessment and Plan: * Started IV metoprolol 2.5 QID currently NPO * Monitor BP per unit protocol (4) UTI (urinary tract infection): Code(s): N39.0 - Urinary tract infection, site not specified Status: Acute Assessment and Plan: appears patient had been treated for 3 weeks with Keflex with no relief of symptoms do not have previous micro. receive Rocephin in the emergency department * will give 1 time dose gentamicin * culture still pending (5) Aphasia: Code(s): R47.01 - Aphasia Status: Acute Assessment and Plan: unsure cause of patient's new aphasia, CT and CTA with no acute findings but could be secondary to inflammation post den's fracture. CTA did show possible tonsillar abscess in enhancement the lingula tonsils. * NPO * Speech evaluation for communication * speech and barium swallow for dysphagia * will treat tonsillar abscess with IV Unasyn (6) Dysphagia: Code(s): R13.10 - Dysphagia, unspecified Status: Acute Assessment and Plan: See Above (7) Seizure disorder: Code(s): G40.909 - Epilepsy, unspecified, not intractable, without status epilepticus Status: Acute Assessment and Plan: patient on oral Keppra 1500 b.i.d. seizure history * due to NPO status started patient on IV Keppra 1500 mg b.i.d. (8) Tachycardia: Code(s): R00.0 - Tachycardia, unspecified Status: Acute Assessment and Plan: * Patient NPO started on IV metoprolol 2.5 q.i.d. * continues cardiac monitoring (9) Tonsil, abscess: Code(s): J36 - Peritonsillar abscess Status: Acute Assessment and Plan: CTA showing possible right-sided tonsillar abscess could be potential cause of patient's aphasia dysphagia * started on IV Unasyn currently NPO Plan Code status: Full code per patient DVT prophylaxis: SCD's Stress ulcer prophylaxis: Protonix 40 daily PT/OT notes: Pending Disposition: patient continues admission for further evaluation and treatment of new onset aphasia and dysphagia altered mental status currently having a neurological workup with EEG and MRI pending S speech has been ordered for co mmunication and swallowing evaluation. Quality VTE Prophylaxis VTE prophylaxis: mechanical ordered -Patient's previous records reviewed on admission -ER notes reviewed in detail on admission -discussed all findings and current treatment plan with patient/Family/POA -Consultations reviewed for recommendations -Patient's disposition for safe discharge discussed with case sealer Dictation performed by [employer] direct speech recognition software, therefore silo painter variants and typographical errors may occur. Hospitalist [facility] Advance Care Plan I have confirmed that the patient's Advanced Care Plan is present, code status is documented, or surrogate decision maker is listed in patient medical record.: Yes Medication Reconciliation I have utilized all available resources to obtain, update and review the patients current medications (includes all prescriptions, OTC, herbals, cannabis, and nutritional supplements).: Yes The patient is not eligible for med reconciliation; the patient is in a emergent medical situation where delaying treatment would jeopardize the patients health.: No
[2025-03-26] MEDS: AMPICILLIN SULB 3 GM/NS 100 ML 3 GM/100 ML VIAL IVPB ×2 (18:05→23:50)
[2025-03-26] MEDS: GENTAMICIN SULFATE INJ 360 MG in DEXTROSE 5% 100 ML 100 MG IVPB (18:05)
[2025-03-26] MEDS: METOPROLOL TARTRATE INJ 5 MG/5 ML VIAL 2.5 MG IV PUSH ×2 (18:06→23:50)
[2025-03-26] MEDS: levETIRAcetam 1500MG/NACL100ML 1,500 MG/100 ML BAG 400 MG IVPB (20:23)
[2025-03-26] MEDS: ACETAMINOPHEN 650 MG SUPPOSITORY RECTAL (20:24)
[2025-03-27] VITALS (20 sets, daily range): BP systolic 125–145; BP diastolic 60–83; PULSE 90–101; RESP 16–26; TEMP 36.8–38.3; O2SAT 96–100; BMI 26.6
[2025-03-27 04:14] LABS: Basophils Percent Auto 0.4 % (0.2-1.2); Eosinophils Percent Auto 0.5 % (0-4.4); Hematocrit 29.1 % (37.0-47.0); Hemoglobin 8.6 g/dL (12.0-15.0); Immature Granulocyte Absolute 0.03 K/mm3 (0.00-0.031); Immature Granulocyte Percent A 0.4 % (0-0.5); Lymphocytes Absolute Auto 1.79 K/mm3 (0.9-3.2); Lymphocytes Percent Auto 21.9 % (18.3-44.2); Mean Corpuscular HGB Conc 29.6 g/dl (32-36); Mean Corpuscular Hemoglobin 26.5 pg (26-34); Mean Corpuscular Volume 89.5 fl (80-100); Mean Platelet Volume 9.3 fl (7.4-10.4); Monocytes Absolute Auto 0.8 K/mm3 (0.1-0.6); Monocytes Percent Auto 9.6 % (2.6-8.5); Neutrophils Absolute Auto 5.5 K/mm3 (1.3-6.7); Neutrophils Percent Auto 67.2 % (45.5-73.1); Platelet Count Result 308 k/mm3 (150-375); Red Blood Count 3.25 M/mm3 (4.2-5.4); Red Cell Distribution Width 17.3 % (11.5-14.5); White Blood Count 8.2 K/mm3 (4.5-10.0)
[2025-03-27 04:29] LABS: Alanine Aminotransferase 29 U/L (6-35); Albumin Level 3.4 g/dL (3.5-5.1); Alkaline Phosphatase 174 U/L (38-126); Anion Gap 8 mmol/L (4-12); Aspartate Amino Transferase 76 U/L (14-36); Bilirubin,Total 0.4 mg/dL (0.2-1.3); Blood Urea Nitrogen 17 mg/dL (7-17); Calcium 8.7 mg/dL (8.4-10.2); Carbon Dioxide 23 mmol/L (22-30); Chloride 114 mmol/L (98-107); Cholesterol 174 mg/dL (0-200); Estimated CRCL calculation 51 ml/min; Estimated Glomerular Filt Rate > 60; Glucose 103 mg/dL (65-110); HDL Direct 36 mg/dL; Potassium 3.9 mmol/L (3.4-5.0); Sodium 145 mmol/L (137-145); Triglycerides 92 mg/dL (<150)
[2025-03-27 04:40] LABS: LDL Cholesterol Direct 76 mg/dL
[2025-03-27] MEDS: METOPROLOL TARTRATE INJ 5 MG/5 ML VIAL 2.5 MG IV PUSH ×3 (05:35→17:29)
[2025-03-27] MEDS: AMPICILLIN SULB 3 GM/NS 100 ML 3 GM/100 ML VIAL IVPB ×3 (05:35→17:30)
[2025-03-27] MEDS: ACETAMINOPHEN 650 MG SUPPOSITORY RECTAL ×3 (05:36→17:30)
--- NOTE | 2025-03-27 08:13 | PCSTNOTE ---
MBS held 03/27/25 due to patient responsiveness to complete. Nursing in agreement. Contacted radiology. Will assess again on 03/28.
[2025-03-27] MEDS: levETIRAcetam 1500MG/NACL100ML 1,500 MG/100 ML BAG 400 MG IVPB ×2 (09:29→21:04)
--- NOTE | 2025-03-27 09:37 | P.PNIM_ITS ---
Progress Note: A&P Assessment and Plan (1) Altered mental status: Code(s): R41.82 - Altered mental status, unspecified Status: Acute Assessment and Plan: Patient with new onset aphasia and dysphagia post dens fracture. likely previous history of seizures on Keppra [address] head with no acute intracranial abnormalities CTA read defining dens fracture but did show possible right tonsillar abscess. Neurology consulted for any further recommendations would be appreciated. Need to R/O stroke * MRI brain/Brainstem * MRI Cervical * EEG * Keppra IV pending swallowing evaluation * No AC previous history of subarachnoid and subdural hemorrhage (2) Dens fracture: Code(s): S12.110A - Anterior displaced Type II dens fracture, initial encounter for closed fracture Status: Acute Assessment and Plan: patient's fracture has been back on February 08 seen at [facility] no surgery no intervention at the time * neurosurgery consulted there is any need for further recommendations * maintain C-collar at all times * pain management * PT/OT * monitor airway (3) Hypertension: Code(s): I10 - Essential (primary) hypertension Status: Acute Assessment and Plan: * Started IV metoprolol 2.5 QID currently NPO * Monitor BP per unit protocol (4) UTI (urinary tract infection): Code(s): N39.0 - Urinary tract infection, site not specified Status: Acute Assessment and Plan: appears patient had been treated for 3 weeks with Keflex with no relief of symptoms do not have previous micro. receive Rocephin in the emergency department * will give 1 time dose gentamicin * culture still pending (5) Aphasia: Code(s): R47.01 - Aphasia Status: Acute Assessment and Plan: unsure cause of patient's new aphasia, CT and CTA with no acute findings but could be secondary to inflammation post den's fracture. CTA did show possible tonsillar abscess in enhancement the lingula tonsils. * NPO * Speech evaluation for communication * speech and barium swallow for dysphagia * will treat tonsillar abscess with IV Unasyn (6) Dysphagia: Code(s): R13.10 - Dysphagia, unspecified Status: Acute Assessment and Plan: See Above (7) Seizure disorder: Code(s): G40.909 - Epilepsy, unspecified, not intractable, without status epilepticus Status: Acute Assessment and Plan: patient on oral Keppra 1500 b.i.d. seizure history * due to NPO status started patient on IV Keppra 1500 mg b.i.d. (8) Tachycardia: Code(s): R00.0 - Tachycardia, unspecified Status: Acute Assessment and Plan: * Patient NPO started on IV metoprolol 2.5 q.i.d. * continues cardiac monitoring (9) Tonsil, abscess: Code(s): J36 - Peritonsillar abscess Status: Acute Assessment and Plan: CTA showing possible right-sided tonsillar abscess could be potential cause of patient's aphasia dysphagia * started on IV Unasyn currently NPO Plan Code status: Full code per patient DVT prophylaxis: SCD's Stress ulcer prophylaxis: Protonix 40 daily PT/OT notes: Pending Disposition: patient continues admission for further evaluation and treatment of new onset aphasia and dysphagia altered mental status currently having a neurological workup with EEG and MRI pending S speech has been ordered for communication and swallowing evaluation. Time Spent With Patient Time with patient: 15 - 25 minutes Subjective Date/time seen: 03/27/25 09:37 Interval history: Patient is a 74 year old female admitted for Further evaluation of altered mental status with new onset aphasia dysphagia. 03/27/2025: Patient alert and following commands today she smiled when asked, squeezed both hands right was weaker then left and BLE strength equal. Patient spoke softly requesting water gave water through straw with no difficulty or coughing. MRI pending, EEG and swallow evaluation bedside. Review of Systems Review of Systems: All systems reviewed & are unremarkable except as noted in HPI and below Exam Const: General: comfortable, no acute distress, alert and awake Orie ntation/consciousness: oriented to person Other: Spoke softly, followed commands HENMT: Ears: TM's normal bilaterally Face/Nose/Sinus: Normal nares present Mouth: Yes moist mucous membranes Other: C-collar in place Eyes: General: appearance normal, both eyes and all related structures Sclera: sclerae normal Pupils: Equal, round and reactive pupils present Neck: Neck: supple and no JVD Resp: Effort & Inspection: normal respiratory effort Auscultation: clear to auscultation bilaterally Cardio: Rate: tachycardic GI: Auscultation: normal bowel sounds Urinary Catheter: Urinary Catheter: patent and draining and urine clear Skin: General skin exam: normal color and no rashes or lesions noted Wounds: no wounds Neuro: General: oriented to person, Normal light touch and pain sensation and Unable to assess gait Cranial nerves: Yes facial sensation intact/muscles of mastication intact and Yes Equal, round and reactive pupils present Speech: aphasia Gait exam (Neuro): Unable to assess gait Motor exam (neuro): Abnormal motor strength present (RUE weaker then LT ) Sensory Exam: normal sensation Other: Alert and following commands Extrem: General: normal to inspection Psych: Affect: normal affect Other: Pleasant smiling Objective Data Vital Signs Vital Signs: Vital Signs - 24 hr 03/26/25 13:57 03/26/25 14:00 03/26/25 16:00 Temperature 98.9 F 98.9 F Pulse Rate 103 H 102 H 110 H Respiratory Rate 22 H 24 H Blood Pressure 157/83 H 152/77 H Pulse Oximetry 100 100 Oxygen Delivery Fraction of Inspired Oxygen 03/26/25 16:00 03/26/25 16:00 03/26/25 18:00 Temperature Pulse Rate 112 H 105 H Respiratory Rate Blood Pressure Pulse Oximetry Oxygen Delivery Room Air Fraction of Inspired Oxygen 03/26/25 18:06 03/26/25 19:30 03/26/25 20:00 Temperature 103.2 F H Pulse Rate 112 H 110 H 107 H Respiratory Rate 16 Blood Pressure 142/76 H Pulse Oximetry 98 Oxygen Delivery Fraction of Inspired Oxygen 03/26/25 20:24 03/26/25 20:25 03/26/25 21:24 Temperature 103.2 F H 99.7 F H Pulse Rate 110 H Respiratory Rate 16 Blood Pressure Pulse Oximetry 98 Oxygen Delivery Room Air Fraction of Inspired Oxygen 03/26/25 22:00 03/26/25 23:46 03/26/25 23:47 Temperature 99.1 F Pulse Rate 104 H 108 H 104 H Respiratory Rate 20 16 Blood Pressure 127/71 Pulse Oximetry 98 98 Oxygen Delivery Room Air Fraction of Inspired Oxygen 21 03/26/25 23:50 03/26/25 23:57 03/27/25 00:00 Temperature Pulse Rate 103 H 103 H 92 Respiratory Rate 16 Blood Pressure Pulse Oximetry 98 Oxygen Delivery Room Air Fraction of Inspired Oxygen 03/27/25 02:00 03/27/25 04:00 03/27/25 04:00 Temperature 99.4 F Pulse Rate 97 95 100 Respiratory Rate 20 Blood Pressure 132/60 Pulse Oximetry 100 Oxygen Delivery Fraction of Inspired Oxygen 03/27/25 05:35 03/27/25 06:00 03/27/25 08:00 Temperature 98.2 F Pulse Rate 101 H 90 97 Respiratory Rate 26 H Blood Pressure 136/83 Pulse Oximetry 97 Oxygen Delivery Fraction of Inspired Oxygen Intake/Output Intake/Output: Intake & Output 03/24/25 03/25/25 03/26/25 03/27/25 23:59 23:59 23:59 23:59 Intake Total 200 100 Output Total 350 625 Balance -150 -525 Meds/Results Medications: Active Medications Generic Name Dose Route Start Last Admin Trade Name Freq PRN Reason Stop Dose Admin Acetaminophen 650 mg 03/26/25 14:08 Acetaminophen 325 Mg Tablet PO Q4H PRN Mild Pain (1-3) or Fever Acetaminophen 650 mg 03/26/25 19:50 03/27/25 05:36 Acetaminophen 650 Mg Suppository RECTAL 650 mg Q6H PRN Administration Mild Pain (1-3) or Fever Levetiracetam 1,500 mg in 100 mls @ 400 mls/hr 03/26/25 21:00 03/27/25 09:29 Keppra Iv IVPB 400 mls/hr Q12HR JAYDEN Administration Ampicillin Sodium/Sulbactam Sodium 3 gm in 100 mls @ 200 mls/hr 03/26/25 16:00 03/27/25 05:35 Unasyn 3 Gm/Ns 100 Ml IVPB 200 mls/hr Q6HR JAYDEN Administration Metoprolol Tartrate 2.5 mg 03/26/25 18:00 03/27/25 05:35 Metoprolol Tartrate Inj 5 Mg/5 Ml Vial IV PUSH 2.5 mg Q6HR JAYDEN Administration Ondansetron HCl 4 mg 03/26/25 14:08 Ondansetron Inj 4 Mg/2 Ml Vial IV PUSH Q6H PRN Nausea And Vomiting Perflutren Lipid Microsphere 0 ml 03/26/25 14:12 Perflutren Lipid Microspheres 1.5 Ml Vial Diluted To 10 Ml Total Volume IV PUSH 03/29/25 14:14 ONCE PRN adequate visualization Protocol Labs Labs: Laboratory Results - last 24 hr 03/27/25 03:59 WBC 8.2 RBC 3.25 L Hgb 8.6 L Hct 29.1 L MCV 89.5 MCH 26.5 MCHC 29.6 L RDW 17.3 H Plt Count 308 MPV 9.3 Immature Gran % (Auto) 0.4 Neut % (Auto) 67.2 Lymph % (Auto) 21.9 [place] % (Auto) 9.6 H Eos % (Auto) 0.5 Baso % (Auto) 0.4 Lymph # (Auto) 1.79 [place] # (Auto) 0.8 H Eos # (Auto) 0.0 Baso # (Auto) 0.0 Abs Immat Gran (auto) 0.03 Absolute Neuts (auto) 5.5 Absolute Nucleated RBC 0.000 Nucleated RBC % 0.0 Sodium 145 Potassium 3.9 Chloride 114 H Carbon Dioxide 23 Anion Gap 8 BUN 17 Creatinine 0.82 Estim Creat Clear Calc 51 Estimated GFR > 60 Glucose 103 Calcium 8.7 Total Bilirubin 0.4 AST 76 H ALT 29 Alkaline Phosphatase 174 H Total Protein 8.0 Albumin 3.4 L Triglycerides 92 Cholesterol 174 LDL Cholesterol Direct 76 HDL Direct 36 Quality VTE Prophylaxis VTE prophylaxis: mechanical ordered -Patient's previous records reviewed on admission -ER notes reviewed in detail on admission -discussed all findings and current treatment plan with patient/Family/POA -Consultations reviewed for recommendations -Patient's disposition for safe discharge discussed with rn case management Dictation performed by [employer] Fluency direct speech recognition software, t herefore first aid officer variants and typographical errors may occur. Hospitalist MIPS Advance Care Plan I have confirmed that the patient's Advanced Care Plan is present, code status is documented, or surrogate decision maker is listed in patient medical record.: Yes Medication Reconciliation I have utilized all available resources to obtain, update and review the patients current medications (includes all prescriptions, OTC, herbals, cannabis, and nutritional supplements).: Yes The patient is not eligible for med reconciliation; the patient is in a emergent medical situation where delaying treatment would jeopardize the patients health.: No
--- NOTE | 2025-03-27 11:33 | WPDNEUROSGCN ---
Assessment and Plan Assessment and plan (1) Dens fracture: Code(s): S12.110A - Anterior displaced Type II dens fracture, initial encounter for closed fracture Status: Acute Plan I received a consult request for Ms. Duran for a dens fracture. On review of her chart, this is a known injury that she sustained in February for which she is already established with a neurosurgeon and for which she has already been treated with a cervical collar. I do not have any new or different recommendations for treatment of this injury. I would recommend that she continue the cervical collar at all times and that she follow-up with her established neurosurgeon as planned. Consult date: 03/27/25 HPI: Deedee Duran is a 74 year old female [facility] Past Medical History Medical History CAD (coronary artery disease) Coarse tremors Subdural hemorrhage Subarachnoid hemorrhage Migraine Hypertension Family History Family History (Updated 03/26/25 @ 15:36 by Gala Espinosa RN) Mother Hypertension Spinal cord cancer Sibling Colon cancer Hypertension Other Breast cancer Social History Social History Smoking packs per day: 0.5 Smoking cigarettes per day: 10.0 Years smoked: 20 Smoking pack-years: 10.00 Smoking status: Former smoker Tobacco type: cigarettes Second hand tobacco smoke exposure: No Alcohol intake: never Substance use: never Spiritual care concerns: No Meds Home Medications and Allergies Home Medications ?Medication ?Instructions ?Recorded ?Confirmed ?Type amlodipine 10 mg tablet 10 mg PO DAILY 03/10/25 03/26/25 History aspirin 81 mg chewable tablet 81 mg PO DAILY 03/10/25 03/26/25 History docusate sodium 100 mg capsule 100 mg PO BID 03/10/25 03/26/25 History levetiracetam 250 mg tablet 1,500 mg PO DAILY 03/10/25 03/26/25 History (Keppra) oxycodone 5 mg tablet 5 mg PO Q6H PRN pain 03/10/25 03/26/25 History polyethylene glycol 3350 17 17 g PO DAILY 03/10/25 03/26/25 History gram/dose oral powder (ClearLax) potassium chloride 10 mEq 10 meq PO DAILY 03/10/25 03/26/25 History capsule,extended release prasugrel HCl 10 mg tablet 10 mg PO DAILY 03/10/25 03/26/25 History (Effient) primidone 250 mg tablet 250 mg PO QID 03/10/25 03/26/25 History topiramate 25 mg tablet (Topamax) 25 mg PO HS 03/10/25 03/26/25 History acetaminophen 500 mg capsule 1,000 mg PO Q6H PRN fever or pain 03/25/25 03/26/25 History Allergies Allergy/AdvReac Type Severity Reaction Status Date / Time morphine Allergy Unknown Unknown Verified 03/25/25 12:49 Vital Signs Vital Signs - 24 hr 03/26/25 13:57 03/26/25 14:00 03/26/25 16:00 Temperature 98.9 F 98.9 F Pulse Rate 103 H 102 H 110 H Respiratory Rate 22 H 24 H Blood Pressure 157/83 H 152/77 H Pulse Oximetry 100 100 Oxygen Delivery Fraction of Inspired Oxygen 03/26/25 16:00 03/26/25 16:00 03/26/25 18:00 Temperature Pulse Rate 112 H 105 H Respiratory Rate Blood Pressure Pulse Oximetry Oxygen Delivery Room Air Fraction of Inspired Oxygen 03/26/25 18:06 03/26/25 19:30 03/26/25 20:00 Temperature 103.2 F H Pulse Rate 112 H 110 H 107 H Respiratory Rate 16 Blood Pressure 142/76 H Pulse Oximetry 98 Oxygen Delivery Fraction of Inspired Oxygen 03/26/25 20:24 03/26/25 20:25 03/26/25 21:24 Temperature 103.2 F H 99.7 F H Pulse Rate 110 H Respiratory Rate 16 Blood Pressure Pulse Oximetry 98 Oxygen Delivery Room Air Fraction of Inspired Oxygen 03/26/25 22:00 03/26/25 23:46 03/26/25 23:47 Temperature 99.1 F Pulse Rate 104 H 108 H 104 H Respiratory Rate 20 16 Blood Pressure 127/71 Pulse Oximetry 98 98 Oxygen Delivery Room Air Fraction of Inspired Oxygen 03/26/25 23:50 03/26/25 23:57 03/27/25 00:00 Temperature Pulse Rate 103 H 103 H 92 Respiratory Rate 16 Blood Pressure Pulse Oximetry 98 Oxygen Delivery Room Air Fraction of Inspired Oxygen 03/27/25 02:00 03/27/25 04:00 03/27/25 04:00 Temperature 99.4 F Pulse Rate 97 95 100 Respiratory Rate 20 Blood Pressure 132/60 Pulse Oximetry 100 Oxygen Delivery Fraction of Inspired Oxygen 03/27/25 05:35 03/27/25 06:00 03/27/25 08:00 Temperature 98.2 F Pulse Rate 101 H 90 97 Respiratory Rate 26 H Blood Pressure 136/83 Pulse Oximetry 97 Oxygen Delivery Fraction of Inspired Oxygen Results Labs 03/27/25 03:59 03/27/25 03:59 Labs: Short CBC 03/27/25 Range/Units 03:59 WBC 8.2 (4.5-10.0) K/mm3 Hgb 8.6 L (12.0-15.0) g/dL Hct 29.1 L (37.0-47.0) % Plt Count 308 (150-375) k/mm3 BMP 03/27/25 03:59 Sodium 145 Potassium 3.9 Chloride 114 H Carbon Dioxide 23 BUN 17 Creatinine 0.82 Glucose 103 Calcium 8.7 Liver Function 03/27/25 Range/Units 03:59 Total Bilirubin 0.4 (0.2-1.3) mg/dL AST 76 H (14-36) U/L ALT 29 (6-35) U/L Alkaline Phosphatase 174 H (38-126) U/L Albumin 3.4 L (3.5-5.1) g/dL
--- NOTE | 2025-03-27 12:29 | P.PNNEUR_ITS ---
Progress Note: A&P Assessment and Plan (1) Dens fracture: Code(s): S12.110A - Anterior displaced Type II dens fracture, initial encounter for closed fracture Status: Acute (2) Seizure disorder: Code(s): G40.909 - Epilepsy, unspecified, not intractable, without status epilepticus Status: Acute Plan There is history of for previous neurologic event and surgery on the head she is on anticonvulsant however she is unable to give me any definite history. At this time she does not appear to be aphasic. I agree with MRI of the cervical spine as well as brain and would follow the results of these. Subjective Date/time seen: 03/27/25 12:29 Interval history: Patient is 74-year-old previous seen by neurology service for evaluation of mental status and seizure disorder and she also had history of fracture of the left C1-2. This is also being evaluated by Neurosurgery. Patient is in cervical collar. Patient is poor historian but does talk appear to be aphasic at this time but slow his she did repeat a given sentence and name shown objects. Review of Systems Review of Systems: ROS unobtainable: Yes unobtainable due to mental status Exam Narrative: The patient is awake and able to talk. She does not appear to have aphasia or dysarthria but she is slow. She does not cooperate very well. There is no facial asymmetry. Extraocular movements appear intact. Visual enamorado by confrontation also normal. Motor system difficult since he does not put forth the best effort but I suspect mild weakness in upper lower limbs. Deep tendon reflexes did not show any pathological or asymmetry response. No definite sens ory level. No involuntary movements. Objective Data Vital Signs Vital Signs: Vital Signs - 24 hr 03/26/25 13:57 03/26/25 14:00 03/26/25 16:00 Temperature 98.9 F 98.9 F Pulse Rate 103 H 102 H 110 H Respiratory Rate 22 H 24 H Blood Pressure 157/83 H 152/77 H Pulse Oximetry 100 100 Oxygen Delivery Fraction of Inspired Oxygen 03/26/25 16:00 03/26/25 16:00 03/26/25 18:00 Temperature Pulse Rate 112 H 105 H Respiratory Rate Blood Pressure Pulse Oximetry Oxygen Delivery Room Air Fraction of Inspired Oxygen 03/26/25 18:06 03/26/25 19:30 03/26/25 20:00 Temperature 103.2 F H Pulse Rate 112 H 110 H 107 H Respiratory Rate 16 Blood Pressure 142/76 H Pulse Oximetry 98 Oxygen Delivery Fraction of Inspired Oxygen 03/26/25 20:24 03/26/25 20:25 03/26/25 21:24 Temperature 103.2 F H 99.7 F H Pulse Rate 110 H Respiratory Rate 16 Blood Pressure Pulse Oximetry 98 Oxygen Delivery Room Air Fraction of Inspired Oxygen 03/26/25 22:00 03/26/25 23:46 03/26/25 23:47 Temperature 99.1 F Pulse Rate 104 H 108 H 104 H Respiratory Rate 20 16 Blood Pressure 127/71 Pulse Oximetry 98 98 Oxygen Delivery Room Air Fraction of Inspired Oxygen 21 03/26/25 23:50 03/26/25 23:57 03/27/25 00:00 Temperature Pulse Rate 103 H 103 H 92 Respiratory Rate 16 Blood Pressure Pulse Oximetry 98 Oxygen Delivery Room Air Fraction of Inspired Oxygen 03/27/25 02:00 03/27/25 04:00 03/27/25 04:00 Temperature 99.4 F Pulse Rate 97 95 100 Respiratory Rate 20 Blood Pressure 132/60 Pulse Oximetry 100 Oxygen Delivery Fraction of Inspired Oxygen 03/27/25 05:35 03/27/25 06:00 03/27/25 08:00 Temperature 98.2 F Pulse Rate 101 H 90 97 Respiratory Rate 26 H Blood Pressure 136/83 Pulse Oximetry 97 Oxygen Delivery Fraction of Inspired Oxygen 03/27/25 08:20 03/27/25 10:00 Temperature Pulse Rate 92 96 Respiratory Rate Blood Pressure Pulse Oximetry Oxygen Delivery Fraction of Inspired Oxygen Intake/Output Intake/Output: Intake & Output 03/24/25 03/25/25 03/26/25 03/27/25 23:59 23:59 23:59 23:59 Intake Total 200 300 Output Total 350 625 Balance -150 -325 Meds/Results Medications: Active Medications Generic Name Dose Route Start Last Admin Trade Name Freq PRN Reason Stop Dose Admin Acetaminophen 650 mg 03/26/25 14:08 Acetaminophen 325 Mg Tablet PO Q4H PRN Mild Pain (1-3) or Fever Acetaminophen 650 mg 03/26/25 19:50 03/27/25 05:36 Acetaminophen 650 Mg Suppository RECTAL 650 mg Q6H PRN Administration Mild Pain (1-3) or Fever Levetiracetam 1,500 mg in 100 mls @ 400 mls/hr 03/26/25 21:00 03/27/25 10:00 Keppra Iv IVPB Infused Q12HR JAYDEN Infusion Ampicillin Sodium/Sulbactam Sodium 3 gm in 100 mls @ 200 mls/hr 03/26/25 16:00 03/27/25 07:00 Unasyn 3 Gm/Ns 100 Ml IVPB Infused Q6HR JAYDEN Infusion Metoprolol Tartrate 2.5 mg 03/26/25 18:00 03/27/25 05:35 Metoprolol Tartrate Inj 5 Mg/5 Ml Vial IV PUSH 2.5 mg Q6HR JAYDEN Administration Ondansetron HCl 4 mg 03/26/25 14:08 Ondansetron Inj 4 Mg/2 Ml Vial IV PUSH Q6H PRN Nausea And Vomiting Perflutren Lipid Microsphere 0 ml 03/26/25 14:12 Perflutren Lipid Microspheres 1.5 Ml Vial Diluted To 10 Ml Total Volume IV PUSH 03/29/25 14:14 ONCE PRN adequate visualization Protocol Labs Labs: Laboratory Results - last 24 hr 03/27/25 03:59 WBC 8.2 RBC 3.25 L Hgb 8.6 L Hct 29.1 L MCV 89.5 MCH 26.5 MCHC 29.6 L RDW 17.3 H Plt Count 308 MPV 9.3 Immature Gran % (Auto) 0.4 Neut % (Auto) 67.2 Lymph % (Auto) 21.9 [place] % (Auto) 9.6 H Eos % (Auto) 0.5 Baso % (Auto) 0.4 Lymph # (Auto) 1.79 [place] # (Auto) 0.8 H Eos # (Auto) 0.0 Baso # (Auto) 0.0 Abs Immat Gran (auto) 0.03 Absolute Neuts (auto) 5.5 Absolute Nucleated RBC 0.000 Nucleated RBC % 0.0 Sodium 145 Potassium 3.9 Chloride 114 H Carbon Dioxide 23 Anion Gap 8 BUN 17 Creatinine 0.82 Estim Creat Clear Calc 51 Estimated GFR > 60 Glucose 103 Calcium 8.7 Total Bilirubin 0.4 AST 76 H ALT 29 Alkaline Phosphatase 174 H Total Protein 8.0 Albumin 3.4 L Triglycerides 92 Cholesterol 174 LDL Cholesterol Direct 76 HDL Direct 36
--- NOTE | 2025-03-27 13:46 | PC.NURSE ---
1330- pt to MRI and MBS test via stretcher- pt alert - no c/o pain at this time- C-collar inplace
--- NOTE | 2025-03-27 15:31 | PCSTNOTE ---
Please refer to the Modified Barium Swallow Evaluation in the EMR. The pt, with a diagnosis of subdural hemorrhage & subarachnoid hemorrhage, was seen previously for a bedside swallow evaluation which revealed: oral stage completed with delayed oral transit across consistencies & pharyngeal stage completed with delayed swallow initiation, and multiple swallows per tsp presentation. Following each swallow although vocal quality was soft and slightly breath it did appear clear in quality. A Modified Barium Swallow was recommended and revealed the following: The pt was seated for a lateral view and was presented with 5 ml thin liquids via a spoon, pudding consistency barium via a spoon, crackers coated with barium pudding via a spoon, uncontrolled of thin liquids via a cup and a straw and uncontrolled trials of mildly thick liquids via a straw. The oral stages were within functional limits; pt masticated slowly with slow prep and formation but was felt to be related to only having upper dentition. No leakage, pocketing or residue was noted; During the pharyngeal stage, reduced laryngeal elevation was exhibited as evidenced by laryngeal elevation during the swallow (intermittently with thin liquids but was a consistent occurrence while straw drinking regardless of thin or mildly thick liquids). Contents appeared to clear but aspiration risk is present. Impression: mild dysphagia due to the laryngeal penetration Recommendations: level 5 minced and moist diet with level 0 thin/regular liquids but no straw drinking. ST to follow for laryngeal elevation ex and for completion of the communication eval.
[2025-03-28] VITALS (25 sets, daily range): BP systolic 115–137; BP diastolic 52–87; PULSE 93–109; RESP 12–22; TEMP 36.4–38.3; O2SAT 94–100
[2025-03-28] MEDS: METOPROLOL TARTRATE INJ 5 MG/5 ML VIAL 2.5 MG IV PUSH ×3 (00:22→16:32)
[2025-03-28] MEDS: AMPICILLIN SULB 3 GM/NS 100 ML 3 GM/100 ML VIAL IVPB ×2 (00:23→09:22)
[2025-03-28 04:07] LABS: Basophils Percent Auto 0.4 % (0.2-1.2); Eosinophils Absolute Auto 0.1 K/mm3 (0-0.3); Hematocrit 26.9 % (37.0-47.0); Immature Granulocyte Absolute 0.05 K/mm3 (0.00-0.031); Immature Granulocyte Percent A 0.6 % (0-0.5); Lymphocytes Absolute Auto 1.54 K/mm3 (0.9-3.2); Lymphocytes Percent Auto 18.3 % (18.3-44.2); Mean Corpuscular HGB Conc 29.7 g/dl (32-36); Mean Corpuscular Hemoglobin 26.3 pg (26-34); Mean Corpuscular Volume 88.5 fl (80-100); Mean Platelet Volume 9.5 fl (7.4-10.4); Monocytes Absolute Auto 0.6 K/mm3 (0.1-0.6); Monocytes Percent Auto 7.4 % (2.6-8.5); Neutrophils Absolute Auto 6.1 K/mm3 (1.3-6.7); Neutrophils Percent Auto 72.3 % (45.5-73.1); Platelet Count Result 322 k/mm3 (150-375); Red Blood Count 3.04 M/mm3 (4.2-5.4); Red Cell Distribution Width 17.4 % (11.5-14.5); White Blood Count 8.4 K/mm3 (4.5-10.0)
[2025-03-28 04:19] LABS: Alanine Aminotransferase 34 U/L (6-35); Albumin Level 3.2 g/dL (3.5-5.1); Alkaline Phosphatase 171 U/L (38-126); Anion Gap 9 mmol/L (4-12); Aspartate Amino Transferase 84 U/L (14-36); Bilirubin,Total 0.4 mg/dL (0.2-1.3); Blood Urea Nitrogen 18 mg/dL (7-17); Calcium 8.5 mg/dL (8.4-10.2); Carbon Dioxide 21 mmol/L (22-30); Chloride 113 mmol/L (98-107); Estimated CRCL calculation 61 ml/min; Estimated Glomerular Filt Rate > 60; Glucose 114 mg/dL (65-110); Potassium 3.7 mmol/L (3.4-5.0); Sodium 143 mmol/L (137-145)
[2025-03-28 04:34] LABS: Band Neutrophils Percent 0 % (0-6); Platelet Estimate Adequate (Adequate)
[2025-03-28 04:35] LABS: Anisocytosis 1+; Ovalocytes 1+; Schistocytes None Seen; Target Cells 1+
[2025-03-28] MEDS: levETIRAcetam 1500MG/NACL100ML 1,500 MG/100 ML BAG 400 MG IVPB ×2 (09:23→23:12)
[2025-03-28 09:39] LABS: INR 1.8; Prothrombin Time 21.5 Seconds (11.1-14.7)
--- NOTE | 2025-03-28 12:23 | P.PNIM_ITS ---
Progress Note: A&P Assessment and Plan (1) Fever of unknown origin: Code(s): R50.9 - Fever, unspecified Status: Acute Assessment and Plan: patient currently having fevers peaked at 103.2 improves slightly with acetaminophen but returns currently unknown source normal WBC but due to patient's initial clinical presentation on admission and has been ruled out for stroke have some concerns for meningitis. Normal WBC * CT abdomen chest pelvis: Sigmoid diverticulosis with 6.0 x 5.4 x 3.2 cm gas and feculent material containing cavity consistent with a contained bowel perforation which communicates to the sigmoid colon through a 1.8 x 1.3 cm defect in the wall of the colon. Could be potential cause of fever * Surgery consulted * NPO diet * IV Zosyn started stopped ampicillin for broader coverage * lumbar puncture pending re-scheduled for 03/28/2025 * COVID/RSV/ influenza pending * Lactic pending * follow-up UA pending * blood cultures NTGD/repeated blood cultures (2) Altered mental status: Code(s): R41.82 - Altered mental status, unspecified Status: Acute Assessment and Plan: Patient with new onset aphasia and dysphagia post dens fracture. likely previous history of seizures on Keppra [address] head with no acute intracranial abnormalities CTA read defining dens fracture but did show possible right tonsillar abscess. Neurology consulted for any further recommendations would be appreciated. Need to R/O stroke. patient's altered mental status improving overall is answering questions and following directions * MRI brain/Brainstem no acute intracranial aging brain * MRI Cervical re-identified acute cervical fracture unchanged from previous imaging * EEG * Keppra IV pending swallowing evaluation * No AC previous history of subarachnoid and subdural hemorrhage (3) Dens fracture: Code(s): S12.110A - Anterior displaced Type II dens fracture, initial encounter for closed fracture Status: Acute Assessment and Plan: patient's fracture has been back on February 08 seen at [facility] no surgery no intervention at the time * neurosurgery consulted there is any need for further recommendations * maintain C-collar at all times * pain management * PT/OT * monitor airway (4) Hypertension: Code(s): I10 - Essential (primary) hypertension Status: Acute Assessment and Plan: * Started IV metoprolol 2.5 QID currently NPO * Monitor BP per unit protocol (5) Aphasia: Code(s): R47.01 - Aphasia Status: Resolved Assessment and Plan: unsure cause of patient's new aphasia, CT and CTA with no acute findings but could be secondary to inflammation post den's fracture. CTA did show possible tonsillar abscess in enhancement the lingula tonsils. Speech therapy following. RESOLVED (6) Dysphagia: Code(s): R13.10 - Dysphagia, unspecified Status: Acute Assessment and Plan: Passed swallow evaluation Level 7 diet (7) Seizure disorder: Code(s): G40.909 - Epilepsy, unspecified, not intractable, without status epilepticus Status: Acute Assessment and Plan: patient on oral Keppra 1500 b.i.d. seizure history * due to NPO status started patient on IV Keppra 1500 mg b.i.d. (8) Tachycardia: Code(s): R00.0 - Tachycardia, unspecified Status: Acute Assessment and Plan: * Patient NPO started on IV metoprolol 2.5 q.i.d. * continues cardiac monitoring (9) UTI (urinary tract infection): Code(s): N39.0 - Urinary tract infection, site not specified Status: Resolved Assessment and Plan: appears patient had been treated for 3 weeks with Keflex with no relief of symptoms do not have previous micro. receive Rocephin in the emergency department * will give 1 time dose gentamicin * culture still pending (10) Perforation bowel: Code(s): K63.1 - Perforation of intestine (nontraumatic) Status: Acute Assessment and Plan: CT showing Sigmoid diverticulosis with 6.0 x 5.4 x 3.2 cm gas and feculent material containing cavity consistent with a contained bowel perforation which communicates to the sigmoid colon through a 1.8 x 1.3 cm defect in the wall of the colon. patient did have rebound tenderness to the abdomen, Normal WBC. * Surgery consulted * NPO * Lactic pending * repeated blood cultures * Started IV Zosyn Plan Code status: Full code per patient DVT prophylaxis: SCD's Stress ulcer prophylaxis: Protonix 40 daily PT/OT notes: Pending Disposition: patient continues admission after altered mental status with aphasia and dysphagia which have resolved however patient now with fever which peaked at 1:[address] abdomen showing contained sigmoid perforation to the sigmoid colon surgery consulted for further recommendations was scheduled for lumbar puncture rescheduled for tomorrow. Time Spent With Patient Time with patient: 25 - 35 minutes Subjective Date/time seen: 03/28/25 12:23 Interval history: Patient is a 74 year old female admitted for Further evaluation of altered mental status with new onset aphasia dysphagia. 03/28/2025: Patient more alert following commands and no longer aphasic and passed swallow evaluation. Patient however has new fevers peaked at 103.2 with no current known source, considering her symptoms on admission have some concerns for Meningitis. Patient did have some rebound tenderness to ABD palpation no N/V, No BM for 4 days. Review of Systems Review of Systems: All systems reviewed & are unremarkable except as noted in HPI and below Exam Const: General: comfortable, no acute distress, alert and awake Orientation/consciousness: oriented to person Other: Spoke softly, following commands HENMT: Ears: TM's normal bilaterally Face/Nose/Sinus: Normal nares present Mouth: Yes moist mucous membranes Other: C-collar in place Eyes: General: appearance normal, both eyes and all related structures Sclera: sclerae normal Pupils: Equal, round and reactive pupils present Neck: Neck: supple and no JVD Resp: Effort & Inspection: normal respiratory effort Auscultation: clear to auscultation bilaterally Cardio: Rate: tachycardic GI: Auscultation: normal bowel sounds Urinary Catheter: Urinary Catheter: patent and draining and urine clear Skin: General skin exam: normal color and no rashes or lesions noted Wounds: no wounds Neuro: General: oriented to person, Normal light touch and pain sensation and Unable to assess gait Cranial nerves: Yes facial sensation intact/muscles of mastication intact and Yes Equal, round and reactive pupils present Speech: normal speech Gait exam (Neuro): Unable to assess gait Motor exam (neuro): Abnormal motor strength present (RUE weaker then LT ) Sensory Exam: normal sensation Other: Alert and following commands Extrem: General: normal to inspection Psych: Affect: normal affect Other: Pleasant smiling Objective Data Vital Signs Vital Signs: Vital Signs - 24 hr 03/27/25 12:29 03/27/25 12:30 03/27/25 16:00 Temperature 99.3 F Pulse Rate 93 93 98 Respiratory Rate 20 Blood Pressure 131/77 Pulse Oximetry 96 Oxygen Delivery Fraction of Inspired Oxygen 03/27/25 16:40 03/27/25 17:29 03/27/25 18:00 Temperature Pulse Rate 101 H 101 H 98 Respiratory Rate Blood Pressure Pulse Oximetry Oxygen Delivery Fraction of Inspired Oxygen 03/27/25 19:43 03/27/25 20:00 03/27/25 20:15 Temperature 100.3 F H Pulse Rate 97 100 Respiratory Rate 16 Blood Pressure 125/81 Pulse Oximetry 100 100 Oxygen Delivery Room Air Fraction of Inspired Oxygen 21 03/27/25 22:00 03/27/25 23:46 03/28/25 00:00 Temperature 100.9 F H Pulse Rate 99 101 H 102 H Respiratory Rate 20 Blood Pressure 145/72 H Pulse Oximetry 100 Oxygen Delivery Fraction of Inspired Oxygen 03/28/25 00:22 03/28/25 02:00 03/28/25 03:44 Temperature 100.9 F H Pulse Rate 102 H 101 H 102 H Respiratory Rate 16 Blood Pressure 132/75 Pulse Oximetry 98 Oxygen Delivery Fraction of Inspired Oxygen 03/28/25 04:00 03/28/25 05:22 03/28/25 06:00 Temperature Pulse Rate 102 H 101 H 93 Respiratory Rate Blood Pressure Pulse Oximetry Oxygen Delivery Fraction of Inspired Oxygen 03/28/25 07:37 03/28/25 08:00 03/28/25 10:00 Temperature 100.9 F H Pulse Rate 96 97 98 Respiratory Rate 12 Blood Pressure 137/69 Pulse Oximetry 100 Oxygen Delivery Fraction of Inspired Oxygen 03/28/25 10:34 03/28/25 12:00 Temperature 100 F H 97.8 F Pulse Rate 96 Respiratory Rate 18 Blood Pressure 117/52 L Pulse Oximetry 100 Oxygen Delivery Fraction of Inspired Oxygen Intake/Output Intake/Output: Intake & Output 03/25/25 03/26/25 03/27/25 03/28/25 23:59 23:59 23:59 23:59 Intake Total 200 920 218 Output Total 350 975 200 Balance -150 -55 18 Meds/Results Medications: Active Medications Generic Name Dose Route Start Last Admin Trade Name Freq PRN Reason Stop Dose Admin Acetaminophen 650 mg 03/26/25 14:08 Acetaminophen 325 Mg Tablet PO Q4H PRN Mild Pain (1-3) or Fever Acetaminophen 650 mg 03/26/25 19:50 03/27/25 17:30 Acetaminophen 650 Mg Suppository RECTAL 650 mg Q6H PRN Administration Mild Pain (1-3) or Fever Levetiracetam 1,500 mg in 100 mls @ 400 mls/hr 03/26/25 21:00 03/28/25 09:23 Keppra Iv IVPB 400 mls/hr Q12HR JAYDEN Administration Ampicillin Sodium/Sulbactam Sodium 3 gm in 100 mls @ 200 mls/hr 03/28/25 15:00 Unasyn 3 Gm/Ns 100 Ml IVPB Q6H JAYDEN Metoprolol Tartrate 2.5 mg 03/26/25 18:00 03/28/25 05:22 Metoprolol Tartrate Inj 5 Mg/5 Ml Vial IV PUSH 2.5 mg Q6HR JAYDEN Administration Ondansetron HCl 4 mg 03/26/25 14:08 Ondansetron Inj 4 Mg/2 Ml Vial IV PUSH Q6H PRN Nausea And Vomiting Perflutren Lipid Microsphere 0 ml 03/26/25 14:12 Perflutren Lipid Microspheres 1.5 Ml Vial Diluted To 10 Ml Total Volume IV PUSH 03/29/25 14:14 ONCE PRN adequate visualization Protocol Sodium Chloride 6 ml 03/29/25 05:00 Sodium Chlor 3% 15 Ml Neb (Respiratory Therapy) INHALATION 03/31/25 05:01 DAILY@0500 [facility] Radiology Results: ITS Impressions Modified Barium Swallow 03/27/25 15:26 IMPRESSION: Oropharyngeal dysphagia with intermittent laryngeal penetration with indeterminate/possible minimal aspiration. Please correlate with speech pathologist findings and specific feeding recommendations. Brain MRI 03/27/25 15:28 IMPRESSION: 1. Normal aging brain with minimal periventricular calcific white matter T2 hyperintensity consistent with chronic small vessel ischemic disease. No acute intracranial process. Cervical Spine MRI 03/28/25 08:39 Impression: Fractured the base of the odontoid process possibly extending from the C2 vertebral body detailed above, most compatible with acute fracture. There is minimal marrow edema and suggestion of possible early cortication along the fracture margins. Alignment appears unchanged as compared to prior CT scans. Anterior fusion of C5 and C6. Moderate to advanced degenerative spondylosis otherwise, as detailed above, with multilevel neural foraminal narrowing. Labs Labs: Laboratory Results - last 24 hr 03/28/25 03/28/25 03:43 08:54 WBC 8.4 RBC 3.04 L Hgb 8.0 L Hct 26.9 L MCV 88.5 MCH 26.3 MCHC 29.7 L RDW 17.4 H Plt Count 322 MPV 9.5 Immature Gran % (Auto) 0.6 H Neut % (Auto) 72.3 Lymph % (Auto) 18.3 [place] % (Auto) 7.4 Eos % (Auto) 1.0 Baso % (Auto) 0.4 Lymph # (Auto) 1.54 [place] # (Auto) 0.6 Eos # (Auto) 0.1 Baso # (Auto) 0.0 Abs Immat Gran (auto) 0.05 H Absolute Neuts (auto) 6.1 Absolute Nucleated RBC 0.000 Band Neutrophils % 0 Nucleated RBC % 0.0 Platelet Estimate Adequate Anisocytosis 1+ Target Cells 1+ Ovalocytes 1+ Schistocytes None seen PT 21.5 H INR 1.8 APTT 38.0 H Sodium 143 Potassium 3.7 Chloride 113 H Carbon Dioxide 21 L Anion Gap 9 BUN 18 H Creatinine 0.68 L Estim Creat Clear Calc 61 Estimated GFR > 60 Glucose 114 H Calcium 8.5 Total Bilirubin 0.4 AST 84 H ALT 34 Alkaline Phosphatase 171 H Total Protein 8.0 Albumin 3.2 L Quality VTE Prophylaxis VTE prophylaxis: mechanical ordered -Patient's previous records reviewed on admission -ER notes reviewed in detail on admission -discussed all findings and current treatment plan with patient/Family/POA -Consultations reviewed for recommendations -Patient's disposition for safe discharge discussed with human services case manager Dictation performed by [employer] direct speech recognition software, therefore mailing clerk variants and typographical errors may occur. Hospitalist MIPS Advance Care Plan I have confirmed that the patient's Advanced Care Plan is present, code status is documented, or surrogate decision maker is listed in patient medical record.: Yes Medication Reconciliation I have utilized all available resources to obtain, update and review the patients current medications (includes all prescriptions, OTC, herbals, cannabis, and nutritional supplements).: Yes The patient is not eligible for med reconciliation; the patient is in a emergent medical situation where delaying treatment would jeopardize the patients health.: No
[2025-03-28 13:32] LABS: Lactic Acid Reflex 1.2 mmol/L (0.7-2.0)
[2025-03-28 14:33] LABS: Influenza A QL RT-PCR Negative (Negative); Influenza B QL RT-PCR Negative (Negative); RSV RNA, RT-PCR Negative (Negative); SARS-CoV-2 RNA PCR Negative (Negative)
--- NOTE | 2025-03-28 15:25 | P.CONGS_ITS ---
Assessment and Plan Assessment and plan (1) Perforation bowel: Code(s): K63.1 - Perforation of intestine (nontraumatic) Status: Acute Assessment and Plan: * I have reviewed the CT and discussed the findings with the patient and her daughter Kinsey who is at the bedside. I attempted to call the power of civil rights attorney but she did not answer. The patient has evidence of a perforated sigmoid colon with feculent peritonitis. I discussed that this is a condition that will not likely improve antibiotics alone. Percutaneous drainage would also not likely be effective given the size of the perforation and feculent material. She is surprisingly currently very stable and has no elevated white count or lactic acidosis. I discussed that this could become worse rather quickly and decision on treatment sooner rather than later would be in her best interest. Surgery is going to be higher risk given her comorbidities. I also discussed that a diverting colostomy is very possible given the infection and perforation. The daughter wanted patient to make a decision for herself but she is currently not answering me or her daughter. Will allow them to some time to talk and also offered discussing further with the other daughters to help come to a decision. They may notify the nurse if a surgical decision has been made. At this time will continue NPO and IV Zosyn for current treatment. Will also give a dose of vitamin K as INR is currently elevated. (2) Altered mental status: Code(s): R41.82 - Altered mental status, unspecified Status: Acute (3) Aphasia: Code(s): R47.01 - Aphasia Status: Resolved (4) Dens fracture: Code(s): S12.110A - Anterior displaced Type II dens fracture, initial encounter for closed fracture Status: Acute History of Present Illness Consult details Consult date: 03/28/25 Reason for consult: other (Perforated sigmoid colon) Requesting physician: Yanet Do, NURSERY HELPER Narrative: This is a 74-year-old woman who I am asked to see for a perforated colon. The patient is not answering questions. When I initially evaluated her, her no other family was there. I asked multiple questions and the patient would not answer. I came back and daughter was at the bedside and states that she has been answering questions for her. I still was unable to get any answers from the patient herself. History is obtained from the chart and from discussions with the family. She has a recent history of a fall at home and suffered a neck fracture. She was then placed in a prison facility but recently had altered mental status and was taken to [facility]. She was then transferred to [facility] for further evaluation by Neurology. She has had fevers for the past 3 days and further workup was performed to assess for source of fever. She did have some recent history of UTIs but has been antibiotics for this and still continues to be afebrile times. A CT of her abdomen and pelvis was performed today. This showed evidence of gas and feculent material measuring about 6 cm in the pelvis and communicating with an area of sigmoid colon perforation. The patient's blood count has been normal and her lactic acid level was normal. She was started on Zosyn after getting the CT results. She is currently NPO. She has Effient listed as a home medication but has not been on it during this admission. She does have an elevated INR but no known history of liver disease. Review of Systems 2 Review of Systems: ROS unobtainable: Yes unobtainable due to medical condition and unobtainable due to mental status PMFSH Past Medical History Medical History CAD (coronary artery disease) Coarse tremors Subdural hemorrhage Subarachnoid hemorrhage Migraine Hypertension Family History Family History (Updated 03/26/25 @ 15:36 by Gala Espinosa RN) Mother Hypertension Spinal cord cancer Sibling Colon cancer Hypertension Other Breast cancer Social History Social History Smoking packs per day: 0.5 Smoking cigarettes per day: 10.0 Years smoked: 20 Smoking pack-years: 10.00 Smoking status: Former smoker Tobacco type: cigarettes Second hand tobacco smoke exposure: No Alcohol intake: never Substance use: never Spiritual care concerns: No Meds Home Medications and Allergies Home Medications ?Medication ?Instructions ?Recorded ?Confirmed ?Type amlodipine 10 mg tablet 10 mg PO DAILY 03/10/25 03/26/25 History aspirin 81 mg chewable tablet 81 mg PO DAILY 03/10/25 03/26/25 History docusate sodium 100 mg capsule 100 mg PO BID 03/10/25 03/26/25 History levetiracetam 250 mg tablet 1,500 mg PO DAILY 03/10/25 03/26/25 History (Keppra) oxycodone 5 mg tablet 5 mg PO Q6H PRN pain 03/10/25 03/26/25 History polyethylene glycol 3350 17 17 g PO DAILY 03/10/25 03/26/25 History gram/dose oral powder (ClearLax) potassium chloride 10 mEq 10 meq PO DAILY 03/10/25 03/26/25 History capsule,extended release prasugrel HCl 10 mg tablet 10 mg PO DAILY 03/10/25 03/26/25 History (Effient) primidone 250 mg tablet 250 mg PO QID 03/10/25 03/26/25 History topiramate 25 mg tablet (Topamax) 25 mg PO HS 03/10/25 03/26/25 History acetaminophen 500 mg capsule 1,000 mg PO Q6H PRN fever or pain 03/25/25 03/26/25 History Allergies Allergy/AdvReac Type Severity Reaction Status Date / Time morphine Allergy Unknown Unknown Verified 03/25/25 12:49 Vital Signs Vital Signs - 24 hr 03/27/25 16:00 03/27/25 16:40 03/27/25 17:29 Temperature 99.3 F Pulse Rate 98 101 H 101 H Respiratory Rate 20 Blood Pressure 131/77 Pulse Oximetry 96 Oxygen Delivery Fraction of Inspired Oxygen 03/27/25 18:00 03/27/25 19:43 03/27/25 20:00 Temperature 100.3 F H Pulse Rate 98 97 100 Respiratory Rate 16 Blood Pressure 125/81 Pulse Oximetry 100 Oxygen Delivery Fraction of Inspired Oxygen 03/27/25 20:15 03/27/25 22:00 03/27/25 23:46 Temperature 100.9 F H Pulse Rate 99 101 H Respiratory Rate 20 Blood Pressure 145/72 H Pulse Oximetry 100 100 Oxygen Delivery Room Air Fraction of Inspired Oxygen 21 03/28/25 00:00 03/28/25 00:22 03/28/25 02:00 Temperature Pulse Rate 102 H 102 H 101 H Respiratory Rate Blood Pressure Pulse Oximetry Oxygen Delivery Fraction of Inspired Oxygen 03/28/25 03:44 03/28/25 04:00 03/28/25 05:22 Temperature 100.9 F H Pulse Rate 102 H 102 H 101 H Respiratory Rate 16 Blood Pressure 132/75 Pulse Oximetry 98 Oxygen Delivery Fraction of Inspired Oxygen 03/28/25 06:00 03/28/25 07:37 03/28/25 08:00 Temperature 100.9 F H Pulse Rate 93 96 97 Respiratory Rate 12 Blood Pressure 137/69 Pulse Oximetry 100 Oxygen Delivery Fraction of Inspired Oxygen 03/28/25 10:00 03/28/25 10:34 03/28/25 12:00 Temperature 100 F H 97.8 F Pulse Rate 98 96 Respiratory Rate 18 Blood Pressure 117/52 L Pulse Oximetry 100 Oxygen Delivery Fraction of Inspired Oxygen 03/28/25 13:47 Temperature 99 F Pulse Rate Respiratory Rate Blood Pressure Pulse Oximetry Oxygen Delivery Fraction of Inspired Oxygen Exam 2 Const: Nutritional Appearance: average body habitus O rientation/consciousness: patient obtunded Limitations: altered mental status HENMT: Head: normal to inspection and normocephalic Ears: external ears normal Face/Nose/Sinus: Normal external nose present and Normal nares present Mouth: Yes Normal oral and palatal mucosa present Eyes: Periorbital: periorbital findings normal Eyelids: eyelids normal C onjunctivae: conjunctivae normal Sclera: sclerae normal Neck: Neck: normal visual inspection, no lymphadenopathy, trachea midline, supple and no JVD Resp: Effort & Inspection: symmetric chest movement Auscultation: clear to auscultation bilaterally Percussion: percussion normal Cardio: Rate: regular rate Rhythm: regular rhythm Heart sounds: S1 normal heart sound present and S2 normal heart sound present Peripheral pulses: Peripheral pulses 2+ throughout GI: Inspection: distended and scar (Lower midline) GI Palp: Yes Soft to palpation, Yes Tenderness to palpation present (GI) (Suprapubic and left lower quadrant) and Yes Guarding due to palpation present (GI) (Suprapubic) A uscultation: normal bowel sounds Neuro: General: Unable to assess gait Gait exam (Neuro): Unable to assess gait Extrem: General: no pedal edema Right upper extremity: normal to inspection Left upper extremity: normal to inspection Results Labs 03/28/25 03:43 03/28/25 03:43 Labs: Abnormal lab results 03/28/25 03/28/25 Range/Units 03:43 08:54 RBC 3.04 L (4.2-5.4) M/mm3 Hgb 8.0 L (12.0-15.0) g/dL Hct 26.9 L (37.0-47.0) % MCHC 29.7 L (32-36) g/dl RDW 17.4 H (11.5-14.5) % Immature Gran % (Auto) 0.6 H (0-0.5) % Abs Immat Gran (auto) 0.05 H (0.00-0.031) K/mm3 PT 21.5 H (11.1-14.7) Seconds APTT 38.0 H (22.3-36.8) Seconds Chloride 113 H (98-107) mmol/L Carbon Dioxide 21 L (22-30) mmol/L BUN 18 H (7-17) mg/dL Creatinine 0.68 L (0.7-1.0) mg/dL Glucose 114 H (65-110) mg/dL AST 84 H (14-36) U/L Alkaline Phosphatase 171 H (38-126) U/L Albumin 3.2 L (3.5-5.1) g/dL Diabetes panel 03/28/25 Range/Units 03:43 Sodium 143 (137-145) mmol/L Potassium 3.7 (3.4-5.0) mmol/L Chloride 113 H (98-107) mmol/L Carbon Dioxide 21 L (22-30) mmol/L BUN 18 H (7-17) mg/dL Creatinine 0.68 L (0.7-1.0) mg/dL Glucose 114 H (65-110) mg/dL Calcium 8.5 (8.4-10.2) mg/dL AST 84 H (14-36) U/L ALT 34 (6-35) U/L Alkaline Phosphatase 171 H (38-126) U/L Total Protein 8.0 (6.3-8.2) g/dL Albumin 3.2 L (3.5-5.1) g/dL Calcium panel 03/28/25 Range/Units 03:43 Calcium 8.5 (8.4-10.2) mg/dL Albumin 3.2 L (3.5-5.1) g/dL Pituitary panel 03/28/25 Range/Units 03:43 Sodium 143 (137-145) mmol/L Potassium 3.7 (3.4-5.0) mmol/L Chloride 113 H (98-107) mmol/L Carbon Dioxide 21 L (22-30) mmol/L BUN 18 H (7-17) mg/dL Creatinine 0.68 L (0.7-1.0) mg/dL Glucose 114 H (65-110) mg/dL Calcium 8.5 (8.4-10.2) mg/dL Adrenal panel 03/28/25 Range/Units 03:43 Sodium 143 (137-145) mmol/L Potassium 3.7 (3.4-5.0) mmol/L Chloride 113 H (98-107) mmol/L Carbon Dioxide 21 L (22-30) mmol/L BUN 18 H (7-17) mg/dL Creatinine 0.68 L (0.7-1.0) mg/dL Glucose 114 H (65-110) mg/dL Calcium 8.5 (8.4-10.2) mg/dL Total Bilirubin 0.4 (0.2-1.3) mg/dL AST 84 H (14-36) U/L ALT 34 (6-35) U/L Alkaline Phosphatase 171 H (38-126) U/L Total Protein 8.0 (6.3-8.2) g/dL Albumin 3.2 L (3.5-5.1) g/dL All other labs normal. Imaging Additional studies: ITS Impressions Modified Barium Swallow 03/27/25 15:26 IMPRESSION: Oropharyngeal dysphagia with intermittent laryngeal penetration with indeterminate/possible minimal aspiration. Please correlate with speech pathologist findings and specific feeding recommendations. Brain MRI 03/27/25 15:28 IMPRESSION: 1. Normal aging brain with minimal periventricular calcific white matter T2 hyperintensity consistent with chronic small vessel ischemic disease. No acute intracranial process. Cervical Spine MRI 03/28/25 08:39 Impression: Fractured the base of the odontoid process possibly extending from the C2 vertebral body detailed above, most compatible with acute fracture. There is minimal marrow edema and suggestion of possible early cortication along the fracture margins. Alignment appears unchanged as compared to prior CT scans. Anterior fusion of C5 and C6. Moderate to advanced degenerative spondylosis otherwise, as detailed above, with multilevel neural foraminal narrowing. Chest/Abdomen/Pelvis CT 03/28/25 11:45 IMPRESSION: 1. Sigmoid diverticulosis with 6.0 x 5.4 x 3.2 cm gas and feculent material containing cavity consistent with a contained bowel perforation which communicates to the sigmoid colon through a 1.8 x 1.3 cm defect in the wall of the colon. 2. Nonobstructing left nephrolithiasis. 3. Mild cardiomegaly. No acute cardiopulmonary disease.
[2025-03-28 16:04] LABS: Add Urine Microscopic? YES; Appearance Urine Cloudy (Clear); Bacteria Urine None Seen /hpf; Bilirubin Urine Negative (Negative); Blood Urine 3+ (Negative); Budding Yeast Urine Present /hpf; Color Urine Yellow (Yellow); Glucose Urine UA Negative (Negative); Ketones Urine 1+ mg/dL (Negative); Leukocyte Esterase Ur Trace LEU/UL (Negative); Need Manual Microscopic Reviewed; Nitrate Urine Negative (Negative); Protein Urine 2+ mg/dL (Negative); Specific Grav Ur 1.031 (1.001-1.035); Squamous Epithelial Cell Urine Few /hpf (Few)
[2025-03-28] MEDS: ACETAMINOPHEN 325 MG TABLET 650 MG PO (16:31)
[2025-03-28] MEDS: PHYTONADIONE ADULT INJ 10 MG in DEXTROSE 5% IN WATER 50 ML 100 MG IVPB (16:32)
[2025-03-28] MEDS: PIPERACILLN/TAZ 3.375GM/NS50ML 3.375 GM/50 ML BAG IVPB (16:32)
[2025-03-28] MEDS: SODIUM CHLORIDE 0.9% IV 1,000 ML 10 ML (16:33)
[2025-03-28] MEDS: TUBING, BLOOD PLUM PUMP TUBING 1 EACH XX (18:41)
[2025-03-28] MEDS: SODIUM CHLORIDE 0.9% IV 250 ML 30 ML IV CONT (18:41)
--- NOTE | 2025-03-28 20:00 | WPDHPUPDATE1 ---
History and Physical Update Update Date/Time: 03/28/25 20:00 History and Physical has been reviewed, including an updated exam of the patient. There are NO changes in the patient's condition. Risks, benefits, and alternatives have been discussed and questions answered. Patient agrees to proceed with procedure.
[2025-03-28] MEDS: LACTATED RINGERS 1,000 ML 30 ML IV CONT ×2 (20:10→22:40)
--- NOTE | 2025-03-28 21:35 | S_PTH ---
PATIENT: Deedee Duran LOC: [id number] U#:[id number] AGE/SX: 75/F ROOM: 247 RE03/26/[address]: Cristobal Tariq MD : 1950 BED: 01 DIS: 04/28/2025 SPEC #: [id number] RECD: 04/01/25 07:26 STATUS: JG REXu #: [id number] MARY: 03/28/25 21:[address]: Antonio Coley DEPT: [facility] [place] Surgical RECD BY: Spenser Rebolledo ENTERED: 04/01/25 07:26 SP TYPE: Surgical OTHR DR: MD Yanet Anne APRN Riaz Naseer, MD Adarsh Sahni, MD Bryan C. Siegfried, MD Sarah S. Travers, MD Tissues: A - Colon Segment NonTumor B - Colon Segment NonTumor Procedures: Hematoxylin and Eosin Stain Gross and Microscopic Level 5
--- NOTE | 2025-03-28 22:54 | P.OP_ITS ---
Procedure Note - Detailed Date of Procedure 03/28/25 Pre-op Diagnosis Bowel perforation, fever Post-op Diagnosis Other (Sigmoid colon perforation, coloenteric fistula) Procedure Performed 1. Exploratory laparotomy 2. Sigmoid colon resection with end descending colostomy 3. Ileal resection with nitq-ay-feym ileal anastomosis Surgeon Antonio Coley, DO Anesthesia General Indications This is a 74-year-old woman who was hospitalized with altered mental status. Over the past 3 days she has begun experiencing fevers as well. She underwent a CT chest/abdomen/pelvis today and this showed evidence a bowel perforation in the lower abdomen with large air and feculent collection outside the bowel. The patient had tenderness with guarding on exam. Her white blood count was normal along with her lactic acid. The patient has multiple comorbidities and surgery was going to be somewhat higher risk. I discussed also with the family that if she shows worsening signs of infection if surgery is delayed too long. Discussions were made about the treatment options and decision was made to proceed with exploratory laparotomy, possible bowel resection, possible ostomy. Findings Exploratory laparotomy was performed. Patient had a few midline adhesions from her prior surgery and evidence of mesh in the upper midline abdomen just superior to the umbilicus. As I explored down into the pelvis, there appeared to be 2 loops of ileum densely adherent with the sigmoid colon. This appeared to be where the perforation was located and the perforation appeared to be contained between the loops of ileum and the sigmoid colon. There also appeared to be coloenteric fistulas between the sigmoid colon in these 2 loops of ileum. A carefully tried dissecting this area free but it was so densely adherent that I ended up having to cut through the ileum at these 2 points. I then resected the segment of ileum containing these to fistulas. A hzcr-bn-nime ileal anastomosis was performed. I then also resected the sigmoid colon at the area of perforation. There did not appear to be any significant feculent drainage into the pelvis. There did however still appear to be some significant adhesions involving the rectum to the surrounding pelvic structures. Was unable to clearly identify the uterus or distal rectum. Decision was made to perform an end descending colostomy and staple off the rectum. The sigmoid colon and ileum were sent to the lab for pathology. Description of Procedure Procedure as well as risks, benefits, and alternatives were discussed with the patient and her power of county attorney. Written consent was obtained and placed in chart prior to procedure. Patient was brought back to surgical suite. She was placed supine on operating table. Time-out was done to confirm patient and procedure. She was then intubated by the anesthesia department. She was then repositioned into modified lithotomy position. Her abdomen was prepped and draped in sterile fashion using chlorhexidine prep. A 15 cm vertical midline incision was made from the umbilicus down to the suprapubic region using a 10 blade scalpel. Electrocautery was used for hemostasis and for dissection through the subcutaneous tissue. The fascia was then entered using electrocautery. I then identified an area where I could enter in through the peritoneum safely and then carefully finger swept to ensure that there were no significant adhesions. I then opened the peritoneum throughout the length of the fascial incision. There was some small bowel and omental adhesions in the periumbilical region that were carefully taken down using electrocautery and Metzenbaum scissors. There appeared to be some mesh in the periumbilical region that was left in place. I then inserted an Diaz wound protector and carefully began inspecting the lower abdomen. The sigmoid colon was identified and this was carefully traced distally where I found an area of dense adhesions around the sigmoid colon. This part of colon appeared to be adherent up to the bladder wall and possibly the uterus the uterus was unable to be clearly identified. There were also 2 loops of ileum densely tethered to the sigmoid in this region. This appeared to be where the perforation likely was. There appeared to be fistulous communications between the sigmoid colon and distal ileum at these locations. Was unable to find a safe plane to dissect due to the dense adhesions. I eventually had to use electrocautery to dissect the plane between the sigmoid colon and and ileum. Once this was performed I was then able to reflect the ileum out of the pelvis. There appeared to be two fistula locations on this segment of ileum. And this appeared to be about 10 cm from the ileocecal valve. I then mobilized the rest of the sigmoid colon out of the pelvis. This was carefully done with blunt dissection and electrocautery. I then took down the lateral peritoneal reflection of the sigmoid colon. I identified the upper rectum and created a window in the mesorectum using blunt dissection. A contour stapler was then advanced across the upper rectum and the stapler was then clamped and fired. LigaSure bipolar cautery was then used to take down the sigmoid mesocolon to just proximal to the area of perforation and fistula. I identified a healthy location of the proximal sigmoid colon and created a window in the mesocolon. A MARITA 75 mm blue load stapler was then advanced across the sigmoid colon at this location and clamped and fired. The remaining mesocolon attachments were taken down with LigaSure bipolar cautery. The specimen was then removed and sent to the lab for pathology. There appeared to be adequate mobilization of the lateral peritoneal attachments to bring the proximal sigmoid colon up to the abdominal wall for ostomy placement. I then moved my attention to the ileum that had the 2 areas of fistula. A window was created in the mesentery proximal and distal to this area and MARITA 75 mm blue load staplers were advanced across each location and clamped and fired. The 2 ends of the ileum came back together in a [id number] fashion without any tension. Enterotomies were made on the anti mesenteric portion of each corner of the staple line and a MARITA 75 mm blue load stapler was advanced through each enterotomy in the bowel was clamped together in a [id number]-rxee fashion and fired. This created the drem-pj-wvuz anastomosis. The anastomosis was inspected and appeared healthy and viable. The common enterotomy was then closed using a Tx 60 mm stapler. The apex of the staple line was reinforced using 3-0 silk seromuscular imbricating suture. Anterior surface of the staple line was also reinforced using 3-0 silk seromuscular sutures. The mesenteric rent was then closed using 3-0 chromic running absorbable suture. The anastomosis was inspected and appeared healthy and viable. It was then released back down into the abdominal cavity. Final inspection was made around the abdominal cavity and no other significant abnormalities were noted. Area was irrigated with sterile saline and hemostasis appeared adequate. I then identified an area in the left lower quadrant to create the colostomy. A 2 cm circular incision was made at the skin using a 15 blade scalpel. Electrocautery was used for hemostasis and for dissection through the subcutaneous tissue. The anterior rectus sheath was then incised vertically using electrocautery. The rectus muscle was then split along its fibers and then the posterior sheath was also incised with electrocautery. The peritoneum was entered and the tract was dilated wide enough to allow the colon to pass up through. The colon was then passed through the incision and a [place] clamp was placed at the staple line. The bowel appeared to be coming up to the skin incision without any tension and no twisting along its path. The midline fascia was then closed using 0 PDS running absorbable suture starting at each end and meeting in the middle. The skin was then approximated using a skin stapler. I then excised the staple line from the end of the colon. The colostomy was then matured using 3-0 chromic sutures at the 4 corners. I then placed 4-0 chromic sutures between the skin and colon in between each of the 3-0 chromic sutures. The ostomy appeared healthy and viable. Was then inspected digitally and appeared patent. The ostomy appliance was then applied. Telfa, 4 x 4 gauze and tape were then applied over the midline incision. The patient was then awakened from anesthesia, extubated, and transferred to recovery. Estimated Blood Loss 200 Urine Output 350 Pathology Yes (Sigmoid colon, ileum) Complications No immediate complications Condition Stable Disposition Other (IMU) [facility] Billing Surgery - Charge Forward: Surgery Billing
[2025-03-29] VITALS (33 sets, daily range): BP systolic 87–148; BP diastolic 56–83; PULSE 74–127; RESP 16–22; TEMP 36.5–39.5; O2SAT 93–100; BMI 25.0
[2025-03-29] MEDS: PIPERACILLN/TAZ 3.375GM/NS50ML 3.375 GM/50 ML BAG IVPB ×4 (00:23→17:39)
[2025-03-29] MEDS: METOPROLOL TARTRATE INJ 5 MG/5 ML VIAL 2.5 MG IV PUSH (00:23)
[2025-03-29] MEDS: LACTATED RINGERS 1,000 ML 100 ML IV CONT ×3 (00:26→17:38)
--- NOTE | 2025-03-29 00:41 | PC.NURSE ---
This patient, Deedee Duran, was received from PACU on 03/28/25 at 2355. Patient/family oriented to unit policies and routines. Daughters at bedside with patient post-op. All questions answered. Vital signs obtained & stable.
[2025-03-29] MEDS: HYDROmorphone HCL INJ (*CRX) 2 MG/ML VIAL 1 MG IV PUSH (01:51)
[2025-03-29] MEDS: IBUPROFEN IV 800 MG/200 ML 800 MG/200 ML BAG 400 MG IVPB (02:01)
[2025-03-29] MEDS: LACTATED RINGERS 1,000 ML 999 ML IV CONT ×2 (02:15→04:55)
[2025-03-29 02:51] LABS: Glucose Point of Care 136 mg/dl (65-105)
[2025-03-29 02:54] LABS: Basophils Percent Auto 0.1 % (0.2-1.2); Eosinophils Percent Auto 0.1 % (0-4.4); Hematocrit 26.2 % (37.0-47.0); Hemoglobin 7.8 g/dL (12.0-15.0); Immature Granulocyte Absolute 0.03 K/mm3 (0.00-0.031); Immature Granulocyte Percent A 0.3 % (0-0.5); Lymphocytes Absolute Auto 0.69 K/mm3 (0.9-3.2); Lymphocytes Percent Auto 7.7 % (18.3-44.2); Mean Corpuscular HGB Conc 29.8 g/dl (32-36); Mean Corpuscular Hemoglobin 26.6 pg (26-34); Mean Corpuscular Volume 89.4 fl (80-100); Mean Platelet Volume 9.7 fl (7.4-10.4); Monocytes Absolute Auto 0.3 K/mm3 (0.1-0.6); Neutrophils Percent Auto 88.8 % (45.5-73.1); Platelet Count Result 293 k/mm3 (150-375); Red Blood Count 2.93 M/mm3 (4.2-5.4); Red Cell Distribution Width 17.5 % (11.5-14.5)
[2025-03-29] MEDS: ETOMIDATE 20 MG/10 ML AMPUL IV PUSH (02:59)
[2025-03-29] MEDS: ROCURONIUM BROMIDE 50 MG/5 ML VIAL IV PUSH (03:00)
[2025-03-29 03:03] LABS: Alanine Aminotransferase 34 U/L (6-35); Albumin Level 2.8 g/dL (3.5-5.1); Alkaline Phosphatase 147 U/L (38-126); Anion Gap 11 mmol/L (4-12); Aspartate Amino Transferase 80 U/L (14-36); Bilirubin,Total 0.5 mg/dL (0.2-1.3); Blood Urea Nitrogen 20 mg/dL (7-17); Carbon Dioxide 22 mmol/L (22-30); Chloride 112 mmol/L (98-107); Estimated CRCL calculation 52 ml/min; Estimated Glomerular Filt Rate > 60; Glucose 141 mg/dL (65-110); Potassium 3.8 mmol/L (3.4-5.0); Sodium 145 mmol/L (137-145)
[2025-03-29 03:04] LABS: Lactic Acid Reflex 1.8 mmol/L (0.7-2.0)
--- NOTE | 2025-03-29 03:08 | P.PCNBED_ITS ---
Procedures Intubation Intubation Date: 03/29/25 Intubation Time: 03:00 Consent: Performed emergently Sedative: etomidate Mg given: 20 Paralytic: rocuronium Mg given: 50 Laryngoscope: fiber optic video scope ET tube size: 7.5 Tube secured depth (cm): 23 Tube secured location: lips Tube placement confirmation: visualized tube passing through cords, equal breath sounds bilaterally, no breath sounds over epigastrium and confirmation by c apnometry Patient tolerated procedure: well Intubation complications: none Additional comments: ET tube was placed measuring 23 at the lip. After intubation x-ray was reviewed and demonstrated ET tube 5.5 cm above the raji. Requested respiratory therapy advanced ET tube 2 cm. He ET tube on re-evaluation still appeared to be 5 cm above the raji. I have requested that respiratory advanced ET tube to 27 cm and repeat chest x-ray has been ordered for 05:00.
[2025-03-29 03:12] LABS: Band Neutrophils Percent 0 % (0-6)
[2025-03-29 03:13] LABS: Platelet Estimate Adequate (Adequate)
[2025-03-29 03:14] LABS: Anisocytosis 1+; Hypochromasia 1+; Ovalocytes 1+; Schistocytes None Seen
[2025-03-29] MEDS: FENTANYL 2,500MCG/NS250ML(*CRX 2,500 MCG/250 ML BAG IV CONT (03:14)
[2025-03-29] MEDS: MIDAZOLAM 100MG/NS 100ML(*CRX) 100 MG/100 ML BAG IV CONT (03:15)
[2025-03-29 03:20] LABS: Procalcitonin 1.1 ng/mL
[2025-03-29 03:23] LABS: INR 1.4; Prothrombin Time 17.9 Seconds (11.1-14.7)
[2025-03-29 03:24] LABS: Partial Thromboplastin Time 34.3 Seconds (22.3-36.8)
--- NOTE | 2025-03-29 03:37 | PC.NURSE ---
Patient noted to have right sided facial drooping and decreased sensation to painful stimuli on right side of body around 0200. Dr. Larkin notified and STAT CT of brain obtained as well as vitals and labs. Dr. Larkin at bedside at 0220 when patient returned from CT scan and assessed patient. Patient did not have gag reflex and was only rousable to painful stimuli. Patient moved to ICU for intubation to protect airway. All vitals remain stable at this time. This RN notified daughter April Jones at 0340 of change in patient status but was unable to reach daughter. Message left with April and will attempt to call again at a later time.
--- NOTE | 2025-03-29 03:57 | P.RRN_ITS ---
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 Nursing staff called to notify me that the patient's heart rate had jumped into the 130s patient was febrile with a temperature of a 103?. In the went to evaluate the patient being found the patient unresponsive with right facial droop. The patient had just returned from surgery around 21:00 for colostomy and small bowel resection with reanastomosis due to perforated bowel. Patient was extubated and transferred back to the IMU on 8 L nasal cannula. Patient's antibiotic therapy had been switched from Unasyn to Zosyn on the afternoon of the when CT chest abdomen and pelvis results demonstrated perforated viscus. Patient was receiving maintenance IV fluids at 100 mL an hour. The patient had already received ibuprofen for fever and had ice packs in the axilla for cooling measures. Patient was set down for stat CT of the brain to rule out acute intercranial process. At the time my review no acute bleed was noted but radiologic interpretation pending. When I went to bedside to evaluate the patient she had sonorous respirations and had no gag reflex. Patient's eyes were deviated upward and she was not responding to commands. Patient would withdraw from painful stimuli with the left leg in arm but not with the right. The patient was transferred to the ICU for intubation as the patient did not seem to be protecting her airway. When I arrived to the ICU the patient briefly did open her eyes when her name was called and seem to focus on my face for a minute and had a gag reflex. But within 30 seconds to a minute the patient was again unresponsive. Patient's heart rate was noted to be in the 130s and 1 L LR bolus was given. Patient was given RSI sedation with rocuronium and etomidate. Patient was intubated with 7.5 ET tube with details in procedure note. Patient was started on ventilatory support a.c./CMV with a rate of 18 peep of 5 tidal volume of 340. We post intubation chest x-ray and ABG have been ordered. Patient's case was discussed with the alarm installation technician. Will have nursing staff perform cheetah score to evaluate intravascular volume status. Will continue maintenance fluids and broad-spectrum antibiotics. GENERAL: Acutely ill-appearing, appears older than stated age, debilitated HEENT: Mucous membranes are moist, absent gag reflex, edentulous in upper and lower jaw, positive conjunctival pallor, no scleral icterus CARDIOVASCULAR: Sinus tachycardia, 2+ bilateral radial pulses RESPIRATORY: Sonorous respirations, decreased breath sounds at the bases ABDOMEN: Postoperative changes noted ostomy in place INTEGUMENT: Hot to touch, non jaundice, no mottling NEUROLOGIC: Unresponsive to noxious stimuli, right facial droop, withdrawals to pain with left upper and lower extremity, no response to pain to right upper and lower extremities PSYCHIATRIC: Unable to assess due to patient condition EXTREMITIES: No cyanosis, no edema : Post catheter in place Laboratory Results - last 24 hr 03/28/25 03/28/25 03/28/25 08:54 10:48 13:13 WBC RBC Hgb Hct MCV MCH MCHC RDW Plt Count MPV Immature Gran % (Auto) Neut % (Auto) Lymph % (Auto) [place] % (Auto) Eos % (Auto) Baso % (Auto) Lymph # (Auto) [place] # (Auto) Eos # (Auto) Baso # (Auto) Abs Immat Gran (auto) Absolute Neuts (auto) Absolute Nucleated RBC Band Neutrophils % Nucleated RBC % Platelet Estimate Hypochromasia Anisocytosis Ovalocytes Schistocytes PT 21.5 H INR 1.8 APTT 38.0 H Sodium Potassium Chloride Carbon Dioxide Anion Gap BUN Creatinine Estim Creat Clear Calc Estimated GFR Glucose POC Capillary Glucose Lactic Acid 1.2 Calcium Total Bilirubin AST ALT Alkaline Phosphatase Total Protein Albumin Procalcitonin Urine Color Yellow Urine Appearance Cloudy H Urine pH 5.0 Ur Specific [place] 1.031 Urine Protein 2+ H Urine Glucose (UA) Negative Urine Ketones 1+ H Ur Blood (Man) 3+ H Urine Nitrate Negative Urine Bilirubin Negative Urine Urobilinogen 1.0 Add Ur Microanalysis Reviewed Leukocyte Esterase Rfl Trace H Urine RBC 11-20 H Urine WBC 11-20 H Ur Squamous Epith Cells Few Urine Bacteria None seen Urine Casts 3-5 Urine Yeast (Budding) Present H Influenza A (RT-PCR) Influenza B (RT-PCR) RSV (RT-PCR) SARS-CoV-2 RNA (RT-PCR) Blood Type Antibody Screen 03/28/25 03/28/25 03/29/25 13:45 16:10 02:47 WBC 9.0 RBC 2.93 L Hgb 7.8 L Hct 26.2 L MCV 89.4 MCH 26.6 MCHC 29.8 L RDW 17.5 H Plt Count 293 MPV 9.7 Immature Gran % (Auto) 0.3 Neut % (Auto) 88.8 H Lymph % (Auto) 7.7 L [place] % (Auto) 3.0 Eos % (Auto) 0.1 Baso % (Auto) 0.1 L Lymph # (Auto) 0.69 L [place] # (Auto) 0.3 Eos # (Auto) 0.0 Baso # (Auto) 0.0 Abs Immat Gran (auto) 0.03 Absolute Neuts (auto) 8.0 H Absolute Nucleated RBC 0.000 Band Neutrophils % 0 Nucleated RBC % 0.0 Platelet Estimate Adequate Hypochromasia 1+ Anisocytosis 1+ Ovalocytes 1+ Schistocytes None seen PT 17.9 H INR 1.4 APTT 34.3 Sodium Potassium Chloride Carbon Dioxide Anion Gap BUN Creatinine Estim Creat Clear Calc Estimated GFR Glucose POC Capillary Glucose 136 H Lactic Acid Calcium Total Bilirubin AST ALT Alkaline Phosphatase Total Protein Albumin Procalcitonin Urine Color Urine Appearance Urine pH Ur Specific [place] Urine Protein Urine Glucose (UA) Urine Ketones Ur Blood (Man) Urine Nitrate Urine Bilirubin Urine Urobilinogen Add Ur Microanalysis Leukocyte Esterase Rfl Urine RBC Urine WBC Ur Squamous Epith Cells Urine Bacteria Urine Casts Urine Yeast (Budding) Influenza A (RT-PCR) Negative Influenza B (RT-PCR) Negative RSV (RT-PCR) Negative SARS-CoV-2 RNA (RT-PCR) Negative Blood Type A Positive Antibody Screen Negative 03/29/25 02:48 WBC RBC Hgb Hct MCV MCH MCHC RDW Plt Count MPV Immature Gran % (Auto) Neut % (Auto) Lymph % (Auto) [place] % (Auto) Eos % (Auto) Baso % (Auto) Lymph # (Auto) [place] # (Auto) Eos # (Auto) Baso # (Auto) Abs Immat Gran (auto) Absolute Neuts (auto) Absolute Nucleated RBC Band Neutrophils % Nucleated RBC % Platelet Estimate Hypochromasia Anisocytosis Ovalocytes Schistocytes PT INR APTT Sodium 145 Potassium 3.8 Chloride 112 H Carbon Dioxide 22 Anion Gap 11 BUN 20 H Creatinine 0.80 Estim Creat Clear Calc 52 Estimated GFR > 60 Glucose 141 H POC Capillary Glucose Lactic Acid 1.8 Calcium 8.0 L Total Bilirubin 0.5 AST 80 H ALT 34 Alkaline Phosphatase 147 H Total Protein 7.0 Albumin 2.8 L Procalcitonin 1.1 Urine Color Urine Appearance Urine pH Ur Specific [place] Urine Protein Urine Glucose (UA) Urine Ketones Ur Blood (Man) Urine Nitrate Urine Bilirubin Urine Urobilinogen Add Ur Microanalysis Leukocyte Esterase Rfl Urine RBC Urine WBC Ur Squamous Epith Cells Urine Bacteria Urine Casts Urine Yeast (Budding) Influenza A (RT-PCR) Influenza B (RT-PCR) RSV (RT-PCR) SARS-CoV-2 RNA (RT-PCR) Blood Type Antibody Screen Chest x-ray: Personally reviewed interpreted radiologic interpretation pending CT brain: Personally reviewed and interpreted radiologic interpretation pending Assessment: 1. Concern for pending respiratory failure with inability to pressure has airway intubated and vent management as above. Helmet Binder has been consulted. Serial ABGs and chest x-rays have been order. 2. Sepsis severe due to perforated viscus status post exploratory laparotomy--antibiotics as discussed above--patient did receive total of 600 mcg of phenylephrine intraoperatively as well as 400 mL of isotonic fluids. Additional 1 L fluid bolus was given at the time of my evaluation. Shortly after innovation despite patient being only on minimal sedation patient became hypotensive with systolic below 90 in maps between 60 and 70. Subsequently a 2 L bolus was provided to equal the patient's 30 mL/kilos fluid needs. Will check cheetah score. Then will resume maintenance IV fluids. Patient has a 20 gauge and a [address] 1 of her IVs looks like it may be near failure. Will place order for PICC line. 3. Abnormal tonsillar imaging--Interestingly enough CT on the also demonstrated possible tonsillar abscess. I did not find documentation until after had already intubated the patient the side did not specifically evaluate the patient's tonsillar pillars during intubation. Either way the patient is on coverage with Zosyn which cover for possible abscess. 4. Stress ulcer prophylaxis--will add Protonix 40 mg IV daily 70 minute spent in critical care activities. Due to a high probability of clinically significant, life threatening deterioration, the patient required my highest level of preparedness to intervene emergently and I personally spent this critical care time directly and personally managing the patient. This critical care time included obtaining a history; examining the patient; pulse oximetry; ordering and review of studies; arranging urgent treatment with development of a management plan; evaluation of patient's response to treatment; frequent reassessment; and discussions with other providers. It was exclusive of separately billable procedures and treating other patients and teaching time. Please see Assessment and Plan section and the rest of the note for further information on patient assessment and treatment. Critical care time: 30 - 74 mins
[2025-03-29 04:48] LABS: Alveolar/Arterial O2 Gradient 122.6 mmHg; Base Excess ABG 0.3 mEq/l (+/-2.0); Carboxyhemoglobin 1.3 % THb (0-2.0); Fractional Inspired Oxygen 50 %; HCO3 ABG 23.4 mEq/l (22.0-26.0); Oxygen Content ABG 11.2 %vol (16.0-22.0); Oxygen Saturation ABG 99.5 % (95.0-100.0); Oxyhemoglobin 98.6 % THb (90.0-100.0); PO2 FiO2 Ratio Arterial Blood 3.98 %; Reduced Hemoglobin 0.1 %THb (0-5.0); pH ABG 7.495 (7.350-7.450)
[2025-03-29 04:50] LABS: Arterial Blood Gas Vent Mode CMV; Arterial Blood Gas Ventilator rate 18 /MIN; Device VENTILATOR; Modified Allen's Test Pass; Site Drawn LEFT RADIAL; Total Hemoglobin 7.7 g/dL (12.0-18.0)
[2025-03-29 04:51] LABS: Arterial Blood Gas PEEP 5 cmH2O; Arterial Blood Gas Tidal Volume 320 ml
--- NOTE | 2025-03-29 06:06 | P.PCNBED_ITS ---
Procedures Central Line Placement Right SC: Central Line Date: 03/29/25 Central Line Time: 05:40 Discussed w/ the patient/family/POA,the placement of a central venous catheter, including its clinical necessity/indication & associated potential risks, benifits and alternatives.: Yes Consent: Nursing staff or I have discussed with the patient and/or surrogate, the non- emergent placement of a central venous catheter, including its clinical necessity/indication and associated potential risks and complications. The patient and/or surrogate understand(s) and acknowledge(s) the need to proceed with central venous catheter insertion as an important element of the patient's clinical management. Time Out Performed: Yes Patient Position: trendelenburg Patient placed on monitor/pulse ox: Yes Provider Prep: mask, sterile gown, sterile gloves, Max. sterile barrier precautions, cap and hand hygiene with conventional soap/water or alcohol based hand rub Central line prep: 2% Chlorhexidine scrub and sterile full body sheet applied Local anesthesia used: lidocaine 1% Amount of anesthesia used (ml): 4 Central line lumen inserted: triple [place]: 7 Length (cm): 16 Depth of Insertion (cm): 12 Post Procedure: sutured in place, good blood return, all ports aspirated, flushed, capped, transparent dressing and aseptic technique maintained throughout procedure Post procedure x-ray: no pneumothorax seen Patient tolerated procedure: well and no complications Complications: catheter malposition (Catheter crossed through the a b rachial cephalic vein on the right into the brachiocephalic vein on the left) Additional comments: Landmarks and Standard Selinger technique was used. Return of venous blood obtained with 1st attempt. Guidewire advanced without difficulty. Dilator used. Line advanced without difficulty. Blue and white ports flushed in drawl easily brown port does not drawl but does flush without difficulty. Initial x- ray with Radiology at bedside demonstrated the mine likely following the course of the brachiocephalic vein in crossing over into the left brachial cephalic central line was pulled back from 15 cm to 11 while stilll under sterile technique and repeat imaging demonstrated line more midline but still brachial cephalic in location. Central line is okay to use for labs and antibiotics as well as fluids but will hold off on any pressors being administered through this line. Order has been placed for PICC line in a.m.. No pneumothorax. Blood pressures have remained stable throughout the duration of the patient's procedure. Pulse ox has also remained stable. Patient did develop some tachycardia but was not receiving any IV sedation during the procedure she had lost all IV access. Repeat evaluations of of the patient's ET tube demonstrated was 3.8 cm from the raji.
--- NOTE | 2025-03-29 07:49 | P.CONIN_ITS ---
Assessment and Plan Assessment and plan (1) Acute respiratory failure: Code(s): J96.00 - Acute respiratory failure, unspecified whether with hypoxia or hypercapnia Status: Acute Assessment and Plan: Acute Respiratory failure secondary to altered mental status and inability to protect airway Patient now intubated and on mechanical ventilation. Continue full mechanical ventilation support to prevent hypoxemia/hypercarbia and end organ damage. ABG reviewed and decrease rate to 16 Chest x-ray reviewed Low tidal volume ventilation strategy to prevent volutrauma Bronchodilators (2) Sepsis: Code(s): A41.9 - Sepsis, unspecified organism Status: Acute Assessment and Plan: Sepsis secondary to bowel perforation, peritonitis, UTI Blood and urine cultures have been ordered and pending Continue Zosyn Patient received 2 L fluid bolus. Will continue LR at 100 mL/hour at this time. (3) Altered mental status: Code(s): R41.82 - Altered mental status, unspecified Status: Acute Assessment and Plan: Patient presented with altered mental status. Patient also has history of seizure disorder and may have had seizure and be postictal. Other possibilities are sepsis as she had a perforated bowel and UTI Overnight rapid response could be secondary to deterioration of mental status from Dilaudid. MRI brain done on 03/27 did not showed any acute CVA and showed 1. Normal aging brain with minimal periventricular calcific white matter T2 hyperintensity consistent with chronic small vessel ischemic disease. No acute intracranial process Will obtain EEG Recent TSH was normal Check ammonia Sedation holiday Neurology consultation (4) C2 cervical fracture: Code(s): S12.100A - Unspecified displaced fracture of second cervical vertebra, initial encounter for closed fracture Status: Inactive Assessment and Plan: Patient had a C2 fracture from fall few weeks ago. Patient was evaluated by Neurosurgery. MRI C-spine done on this hospitalization showed following She currently in a soft C-collar. Impression: Fractured the base of the odontoid process possibly extending from the C2 vertebral body detailed above, most compatible with acute fracture. There is minimal marrow edema and suggestion of possible early cortication along the fracture margins. Alignment appears unchanged as compared to prior CT scans. Anterior fusion of C5 and C6. Moderate to advanced degenerative spondylosis otherwise, as detailed above, with multilevel neural foraminal narrowing. (5) Dysphagia: Code(s): R13.10 - Dysphagia, unspecified Status: Acute Assessment and Plan: Patient failed her swallow study. Currently npo Will start tube feeding once cleared by General surgery (6) UTI (urinary tract infection): Code(s): N39.0 - Urinary tract infection, site not specified Status: Resolved Assessment and Plan: See above (7) Seizure disorder: Code(s): G40.909 - Epilepsy, unspecified, not intractable, without status epilepticus Status: Acute Assessment and Plan: History of seizure disorder. Continue Keppra. Currently sedated with Versed Obtain EEG. (8) Perforation bowel: Code(s): K63.1 - Perforation of intestine (nontraumatic) Status: Acute Assessment and Plan: 03/28 Status post 1. Exploratory laparotomy 2. Sigmoid colon resection with end descending colostomy 3. Ileal resection with [id number] ileal anastomosis NPO Management per General surgery Antibiotics as above Plan DVT prophylaxis - SCD, Start Lovenox as per surgery Stress ulcer prophylaxis - PPI Nutrition - NPO Code Status - Full Code Total Critical Care Time - 40 minutes Due to a high probability of clinically significant, life threatening deterioration, the patient required my highest level of preparedness to intervene emergently and I personally spent this critical care time directly and personally managing the patient. This critical care time included obtaining a history; examining the patient; pulse oximetry; ordering and review of studies; arranging urgent treatment with development of a management plan; evaluation of patient's response to treatment; frequent reassessment; and discussions with other providers. It was exclusive of separately billable procedures and treating other patients and teaching time. Please see Assessment and Plan section and the rest of the note for further information on patient assessment and treatment [facility] Consult Note Consult date: 03/30/25 HPI: Deedee Duran is a 74 year old female came to emergency department from a detention facility on 03/26 due to altered mental status and confusion. She was in rehab after sustaining a C2 fracture from a fall a few weeks prior to that. She has had UTIs that were treated as an outpatient. Patient has past medical history of seizure disorder and is on Keppra. Patient was admitted and was suspected to be having either a seizure or a CVA. CT brain without contrast was negative. Chest x-ray was negative. Neurology and Neurosurgery were consulted and plan was to transfer patient to tertiary facility for evaluation including MRI EEG and echo. CT scan showed possible tonsillar abscess and patient was started on Unasyn. Later in the hospital patient developed fever S CTA chest abdomen pelvis was done which showed diverticulosis with gas and fecal material containing cavity suggestive of bowel perforation. General surgery consulted and patient was started on IV Zosyn. MRI brain was obtained. On 03/28 patient underwent exploratory laparotomy with sigmoid colon resection and colostomy. Patient also had ileal resection with anastomosis. Patient was admitted to step-down unit postop. Around 2:00 a.m. patient received 1 mg of Dilaudid for pain. Later patient had a rapid response of altered mental status and questionable right facial droop. Patient appeared not to be protecting her airway and hence was intubated and transferred to ICU. She was also given 2 L fluid bolus and a right subclavian central venous catheter was placed. At this time patient is intubated sedated and unable to provide any further history. History was obtained after detailed review of her chart since admission and sign-out from overnight physician. Review of Systems 2 Review of Systems: ROS unobtainable: Yes unobtainable due to endotracheal tube, unobtainable due to medical condition and unobtainable due to mental status [facility] Past Medical History Medical History (Updated 03/29/25 @ 11:10 by Antonio Coley DO) C2 cervical fracture CAD (coronary artery disease) Coarse tremors Subdural hemorrhage Subarachnoid hemorrhage Migraine Hypertension Family History Family History Mother Hypertension Spinal cord cancer Sibling Colon cancer Hypertension Other Breast cancer Social History Social History Smoking packs per day: 0.5 Smoking cigarettes per day: 10.0 Years smoked: 20 Smoking pack-years: 10.00 Smoking status: Former smoker Tobacco type: cigarettes Second hand tobacco smoke exposure: No Alcohol intake: never Substance use: never Spiritual care concerns: No Meds Home Medications and Allergies Home Medications ?Medication ?Instructions ?Recorded ?Confirmed ?Type amlodipine 10 mg tablet 10 mg PO DAILY 03/10/25 03/26/25 History aspirin 81 mg chewable tablet 81 mg PO DAILY 03/10/25 03/26/25 History docusate sodium 100 mg capsule 100 mg PO BID 03/10/25 03/26/25 History levetiracetam 250 mg tablet 1,500 mg PO DAILY 03/10/25 03/26/25 History (Keppra) oxycodone 5 mg tablet 5 mg PO Q6H PRN pain 03/10/25 03/26/25 History polyethylene glycol 3350 17 17 g PO DAILY 03/10/25 03/26/25 History gram/dose oral powder (ClearLax) potassium chloride 10 mEq 10 meq PO DAILY 03/10/25 03/26/25 History capsule,extended release prasugrel HCl 10 mg tablet 10 mg PO DAILY 03/10/25 03/26/25 History (Effient) primidone 250 mg tablet 250 mg PO QID 03/10/25 03/26/25 History topiramate 25 mg tablet (Topamax) 25 mg PO HS 03/10/25 03/26/25 History acetaminophen 500 mg capsule 1,000 mg PO Q6H PRN fever or pain 03/25/25 03/26/25 History Allergies Allergy/AdvReac Type Severity Reaction Status Date / Time morphine Allergy Unknown Unknown Verified 03/25/25 12:49 Vital Signs Vital Signs - 24 hr 03/28/25 08:00 03/28/25 10:00 03/28/25 10:34 Temperature 37.7 C H Pulse Rate 97 98 Respiratory Rate Blood Pressure Pulse Oximetry Oxygen Delivery Oxygen Flow Rate Fraction of Inspired Oxygen 03/28/25 12:00 03/28/25 12:00 03/28/25 13:47 Temperature 36.6 C 37.2 C Pulse Rate 96 98 Respiratory Rate 18 Blood Pressure 117/52 L Pulse Oximetry 100 Oxygen Delivery Oxygen Flow Rate Fraction of Inspired Oxygen 03/28/25 14:00 03/28/25 16:00 03/28/25 16:00 Temperature 38.0 C H Pulse Rate 98 106 H 109 H Respiratory Rate 18 Blood Pressure 133/75 Pulse Oximetry 100 Oxygen Delivery Oxygen Flow Rate Fraction of Inspired Oxygen 03/28/25 16:32 03/28/25 18:17 03/28/25 18:26 Temperature 37.6 C H 37.6 C H Pulse Rate 109 H 99 97 Respiratory Rate 16 16 Blood Pressure 121/66 133/64 Pulse Oximetry 100 100 Oxygen Delivery Oxygen Flow Rate Fraction of Inspired Oxygen 03/28/25 18:55 03/28/25 22:40 03/28/25 22:55 Temperature 36.9 C 36.6 C Pulse Rate 93 93 96 Respiratory Rate 18 22 H 17 Blood Pressure 129/64 131/81 136/80 Pulse Oximetry 95 97 98 Oxygen Delivery Simple Face Mask Simple Face Mask Oxygen Flow Rate 8 8 Fraction of Inspired Oxygen 03/28/25 23:05 03/28/25 23:20 03/28/25 23:35 Temperature 36.4 C Pulse Rate 97 106 H 106 H Respiratory Rate 18 18 20 Blood Pressure 131/78 123/87 115/75 Pulse Oximetry 97 100 94 Oxygen Delivery Simple Face Mask Simple Face Mask Room Air Oxygen Flow Rate 8 8 Fraction of Inspired Oxygen 03/28/25 23:45 03/29/25 00:00 03/29/25 00:00 Temperature Pulse Rate 108 H 113 H 120 H Respiratory Rate 20 22 H 16 Blood Pressure 115/70 131/70 Pulse Oximetry 99 99 100 Oxygen Delivery Room Air Room Air Room Air Oxygen Flow Rate Fraction of Inspired Oxygen 03/29/25 00:00 03/29/25 00:02 03/29/25 00:17 Temperature 37.8 C H 37.8 C H Pulse Rate 120 H 120 H 122 H Respiratory Rate 17 16 Blood Pressure 135/66 135/66 Pulse Oximetry 95 100 Oxygen Delivery Oxygen Flow Rate Fraction of Inspired Oxygen 03/29/25 00:23 03/29/25 00:47 03/29/25 01:47 Temperature 39.5 C H Pulse Rate 120 H 110 H 127 H Respiratory Rate 21 H Blood Pressure 135/64 148/71 H Pulse Oximetry Oxygen Delivery Oxygen Flow Rate Fraction of Inspired Oxygen 03/29/25 02:01 03/29/25 03:01 03/29/25 03:14 Temperature 39.5 C H 38.1 C H Pulse Rate 107 H Respiratory Rate 18 Blood Pressure Pulse Oximetry Oxygen Delivery Oxygen Flow Rate Fraction of Inspired Oxygen 03/29/25 03:14 03/29/25 03:15 03/29/25 03:50 Temperature Pulse Rate 74 107 H 122 H Respiratory Rate 18 20 Blood Pressure 136/78 Pulse Oximetry 100 96 Oxygen Delivery Mechanical Ventilation Room Air Oxygen Flow Rate Fraction of Inspired Oxygen 50 03/29/25 04:00 03/29/25 04:00 03/29/25 04:28 Temperature Pulse Rate 100 100 94 Respiratory Rate 18 18 Blood Pressure Pulse Oximetry 100 Oxygen Delivery Mechanical Ventilation Oxygen Flow Rate Fraction of Inspired Oxygen 50 03/29/25 05:00 03/29/25 05:00 03/29/25 06:00 Temperature Pulse Rate 92 92 90 Respiratory Rate 18 18 18 Blood Pressure Pulse Oximetry Oxygen Delivery Oxygen Flow Rate Fraction of Inspired Oxygen 03/29/25 06:00 03/29/25 06:15 03/29/25 06:15 Temperature Pulse Rate 90 89 89 Respiratory Rate 18 18 18 Blood Pressure Pulse Oximetry Oxygen Delivery Oxygen Flow Rate Fraction of Inspired Oxygen 03/29/25 06:30 03/29/25 06:39 Temperature Pulse Rate 92 80 Respiratory Rate 18 Blood Pressure Pulse Oximetry Oxygen Delivery Oxygen Flow Rate Fraction of Inspired Oxygen Exam 2 Narrative: General: Pt is sedated, intubated and on mechanical ventilation Lungs/Chest: Trachea central Coarse BS B/L, No crackles or wheezing. Cardiac: RRR. Normal S1 S2. No murmurs Circulation: Pedal pulses are intact and symmetrical. Abdomen: Decreased bowel sounds. She has a colostomy in the left lower quadrant with brownish liquid output, mild diffuse tenderness as she grimaces on exam. Extremities: No clubbing, cyanosis or edema. Warm : Post in place Neurologic: Unable to assess fully due to sedation. She withdraws to pain in all 4 extremities left more than right. She spontaneously moves all 4 extremities. She resists pupillary exam by clenching her eyes. She grimaces on painful stimuli unable to assess facial asymmetry as patient is sedated intubated [facility] Results Labs 03/30/25 07:42 03/30/25 06:32 Labs: Impressions Cervical Spine MRI 03/28/25 08:39 Impression: Fractured the base of the odontoid process possibly extending from the C2 vertebral body detailed above, most compatible with acute fracture. There is minimal marrow edema and suggestion of possible early cortication along the fracture margins. Alignment appears unchanged as compared to prior CT scans. Anterior fusion of C5 and C6. Moderate to advanced degenerative spondylosis otherwise, as detailed above, with multilevel neural foraminal narrowing. Chest/Abdomen/Pelvis CT 03/28/25 11:45 IMPRESSION: 1. Sigmoid diverticulosis with 6.0 x 5.4 x 3.2 cm gas and feculent material containing cavity consistent with a contained bowel perforation which communicates to the sigmoid colon through a 1.8 x 1.3 cm defect in the wall of the colon. 2. Nonobstructing left nephrolithiasis. 3. Mild cardiomegaly. No acute cardiopulmonary disease. Abdomen X-Ray 03/28/25 23:27 IMPRESSION: Nasogastric tube in good position and ready for immediate use. Chest X-Ray 03/29/25 07:42 IMPRESSION: 1. Unchanged mild elevation left hemidiaphragm. No acute cardiopulmonary disease. 2. Lines and tubes as detailed above including a right subclavian central venous catheter with distal tip crossing midline into the left brachiocephalic vein. Short CBC 03/29/25 Range/Units 02:47 WBC 9.0 (4.5-10.0) K/mm3 Hgb 7.8 L (12.0-15.0) g/dL Hct 26.2 L (37.0-47.0) % Plt Count 293 (150-375) k/mm3 BMP 03/29/25 02:48 Sodium 145 Potassium 3.8 Chloride 112 H Carbon Dioxide 22 BUN 20 H Creatinine 0.80 Glucose 141 H Calcium 8.0 L Liver Function 03/29/25 Range/Units 02:48 Total Bilirubin 0.5 (0.2-1.3) mg/dL AST 80 H (14-36) U/L ALT 34 (6-35) U/L Alkaline Phosphatase 147 H (38-126) U/L Albumin 2.8 L (3.5-5.1) g/dL Urine 03/28/25 Range/Units 10:48 Urine Color Yellow (Yellow) Urine Appearance Cloudy H (Clear) Urine pH 5.0 (5.0-9.0) Ur Specific [place] 1.031 (1.001-1.035) Urine Protein 2+ H (Negative) mg/dL Urine Glucose (UA) Negative (Negative) mg/dL Quality VTE Prophylaxis VTE prophylaxis: mechanical ordered and pharmacologic ordered Hospitalist MIPS Advance Care Plan I have confirmed that the patient's Advanced Care Plan is present, code status is documented, or surrogate decision maker is listed in patient medical record.: Yes Medication Reconciliation I have utilized all available resources to obtain, update and review the patients current medications (includes all prescriptions, OTC, herbals, cannabis, and nutritional supplements).: Yes
[2025-03-29 08:42] LABS: Ammonia < 9 umol/L (9-30)
[2025-03-29] MEDS: LIDOCAINE 1% PF INJ 5 ML VIAL INFILTRATE (08:50)
[2025-03-29] MEDS: levETIRAcetam 1500MG/NACL100ML 1,500 MG/100 ML BAG 400 MG IVPB ×2 (09:44→21:16)
[2025-03-29] MEDS: PANTOPRAZOLE SODIUM IV 40 MG VIAL IV PUSH (09:45)
[2025-03-29] MEDS: ENOXAPARIN 40 MG/0.4 ML SYRINGE SUB-Q (09:45)
[2025-03-29] MEDS: MINERAL OIL/WHITE PETROLATUM OINTMENT 1 APPLIC EACH EYE ×2 (09:45→21:12)
--- NOTE | 2025-03-29 11:01 | P.PNGS_ITS ---
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 Sedated on vent this AM. No ostomy function yet. Exam GI: Inspection: incision (mild bleeding at inferior part of incision) and other (ostomy pink, no stool yet) Auscultation: Hypoactive bowel sounds present Objective Data Vital Signs Vital Signs: Vital Signs - 24 hr 03/28/25 12:00 03/28/25 12:00 03/28/25 13:47 Temperature 97.8 F 99 F Pulse Rate 96 98 Respiratory Rate 18 Blood Pressure 117/52 L Pulse Oximetry 100 Oxygen Delivery Oxygen Flow Rate Fraction of Inspired Oxygen 03/28/25 14:00 03/28/25 16:00 03/28/25 16:00 Temperature 100.4 F H Pulse Rate 98 106 H 109 H Respiratory Rate 18 Blood Pressure 133/75 Pulse Oximetry 100 Oxygen Delivery Oxygen Flow Rate Fraction of Inspired Oxygen 03/28/25 16:32 03/28/25 18:17 03/28/25 18:26 Temperature 99.7 F H 99.7 F H Pulse Rate 109 H 99 97 Respiratory Rate 16 16 Blood Pressure 121/66 133/64 Pulse Oximetry 100 100 Oxygen Delivery Oxygen Flow Rate Fraction of Inspired Oxygen 03/28/25 18:55 03/28/25 22:40 03/28/25 22:55 Temperature 98.5 F 97.8 F Pulse Rate 93 93 96 Respiratory Rate 18 22 H 17 Blood Pressure 129/64 131/81 136/80 Pulse Oximetry 95 97 98 Oxygen Delivery Simple Face Mask Simple Face Mask Oxygen Flow Rate 8 8 Fraction of Inspired Oxygen 03/28/25 23:05 03/28/25 23:20 03/28/25 23:35 Temperature 97.6 F Pulse Rate 97 106 H 106 H Respiratory Rate 18 18 20 Blood Pressure 131/78 123/87 115/75 Pulse Oximetry 97 100 94 Oxygen Delivery Simple Face Mask Simple Face Mask Room Air Oxygen Flow Rate 8 8 Fraction of Inspired Oxygen 03/28/25 23:45 03/29/25 00:00 03/29/25 00:00 Temperature Pulse Rate 108 H 113 H 120 H Respiratory Rate 20 22 H 16 Blood Pressure 115/70 131/70 Pulse Oximetry 99 99 100 Oxygen Delivery Room Air Room Air Room Air Oxygen Flow Rate Fraction of Inspired Oxygen 03/29/25 00:00 03/29/25 00:02 03/29/25 00:17 Temperature 100.0 F H 100.0 F H Pulse Rate 120 H 120 H 122 H Respiratory Rate 17 16 Blood Pressure 135/66 135/66 Pulse Oximetry 95 100 Oxygen Delivery Oxygen Flow Rate Fraction of Inspired Oxygen 03/29/25 00:23 03/29/25 00:47 03/29/25 01:47 Temperature 103.1 F H Pulse Rate 120 H 110 H 127 H Respiratory Rate 21 H Blood Pressure 135/64 148/71 H Pulse Oximetry Oxygen Delivery Oxygen Flow Rate Fraction of Inspired Oxygen 03/29/25 02:01 03/29/25 03:01 03/29/25 03:14 Temperature 103.1 F H 100.6 F H Pulse Rate 107 H Respiratory Rate 18 Blood Pressure Pulse Oximetry Oxygen Delivery Oxygen Flow Rate Fraction of Inspired Oxygen 03/29/25 03:14 03/29/25 03:15 03/29/25 03:50 Temperature Pulse Rate 74 107 H 122 H Respiratory Rate 18 20 Blood Pressure 136/78 Pulse Oximetry 100 96 Oxygen Delivery Mechanical Ventilation Room Air Oxygen Flow Rate Fraction of Inspired Oxygen 50 03/29/25 04:00 03/29/25 04:00 03/29/25 04:00 Temperature Pulse Rate 100 100 102 H Respiratory Rate 18 18 Blood Pressure Pulse Oximetry Oxygen Delivery Oxygen Flow Rate Fraction of Inspired Oxygen 03/29/25 04:28 03/29/25 05:00 03/29/25 05:00 Temperature Pulse Rate 94 92 92 Respiratory Rate 18 18 Blood Pressure Pulse Oximetry 100 Oxygen Delivery Mechanical Ventilation Oxygen Flow Rate Fraction of Inspired Oxygen 50 03/29/25 06:00 03/29/25 06:00 03/29/25 06:00 Temperature Pulse Rate 90 90 90 Respiratory Rate 18 18 Blood Pressure Pulse Oximetry Oxygen Delivery Oxygen Flow Rate Fraction of Inspired Oxygen 03/29/25 06:15 03/29/25 06:15 03/29/25 06:39 Temperature Pulse Rate 89 89 80 Respiratory Rate 18 18 Blood Pressure Pulse Oximetry Oxygen Delivery Oxygen Flow Rate Fraction of Inspired Oxygen 03/29/25 06:50 03/29/25 08:00 03/29/25 08:00 Temperature 97.7 F Pulse Rate 85 83 83 Respiratory Rate 17 17 16 Blood Pressure 139/75 Pulse Oximetry 100 Oxygen Delivery Oxygen Flow Rate Fraction of Inspired Oxygen 03/29/25 08:00 03/29/25 08:15 03/29/25 10:00 Temperature Pulse Rate 83 82 89 Respiratory Rate 16 16 Blood Pressure Pulse Oximetry 100 Oxygen Delivery Mechanical Ventilation Oxygen Flow Rate Fraction of Inspired Oxygen 40 03/29/25 10:00 03/29/25 10:43 Temperature Pulse Rate 89 95 Respiratory Rate 16 Blood Pressure Pulse Oximetry 100 Oxygen Delivery Mechanical Ventilation Oxygen Flow Rate Fraction of Inspired Oxygen 40 Intake/Output Intake/Output: Intake & Output 03/26/25 03/27/25 03/28/25 03/29/25 23:59 23:59 23:59 23:59 Intake Total 824 700 3954 3760.8 Output Total 350 975 960 0 Balance -150 -55 479 3760.8 Meds/Results Medications: Active Medications Generic Name Dose Route Start Last Admin Trade Name Freq PRN Reason Stop Dose Admin Acetaminophen 650 mg 03/26/25 14:08 03/28/25 16:31 Acetaminophen 325 Mg Tablet PO 650 mg Q4H PRN Administration Mild Pain (1-3) or Fever Albuterol/Ipratropium 3 ml 03/29/25 08:07 Ipratropium 0.5 Mg/Albuterol Sulfate 2.5 Mg Ampul.Neb 3 Ml INHALATION Q6HRT PRN Wheezing Enoxaparin Sodium 40 mg 03/29/25 09:00 03/29/25 09:45 Enoxaparin 40 Mg/0.4 Ml Syringe SUB-Q 40 mg DAILY JAYDEN Administration Levetiracetam 1,500 mg in 100 mls @ 400 mls/hr 03/26/25 21:00 03/29/25 10:29 Keppra Iv IVPB Infused Q12HR JAYDEN Infusion Piperacillin/Tazobactam/Dextrose 3.375 gm in 50 mls @ 100 mls/hr 03/28/25 13:00 03/29/25 07:40 Zosyn 3.375 Gm/Ns 50 Ml IVPB Infused Q6H JAYDEN Infusion Lactated Ringer's 1,000 mls @ 100 mls/hr 03/29/25 00:02 03/29/25 08:36 Lr - Lactated Ringers Iv IV CONT Infused .Q10H JAYDEN Infusion Fentanyl Citrate 2,500 mcg in 250 mls @ 2.5 mls/hr 03/29/25 02:55 03/29/25 10:00 Fentanyl 2,500 Mcg/Ns 250 Ml IV CONT 0 mcg/hr .Q72H JAYDEN 0 mls/hr Titration Protocol 25 MCG/HR Midazolam HCl 100 mg in 100 mls @ 2 mls/hr 03/29/25 02:55 03/29/25 10:00 Versed 100 Mg/Ns 100 Ml IV CONT 0 mg/hr .Q50H JAYDEN 0 mls/hr Titration Protocol 2 MG/HR Multi-Ingred Cream/Lotion/Oil/Oint 1 applic 03/29/25 09:00 03/29/25 09:45 Mineral Oil/White Petrolatum Ointment EACH EYE 1 applic Q12HR JAYDEN Administration Naloxone HCl 0.1 mg 03/29/25 00:02 Naloxone Hcl 0.4 Mg/Ml Vial IV PUSH Q2M PRN Opiate Reversal Ondansetron HCl 4 mg 03/26/25 14:08 Ondansetron Inj 4 Mg/2 Ml Vial IV PUSH Q6H PRN Nausea And Vomiting Pantoprazole Sodium 40 mg 03/29/25 09:00 03/29/25 09:45 Pantoprazole Sodium Iv 40 Mg Vial IV PUSH 40 mg DAILY JAYDEN Administration Perflutren Lipid Microsphere 0 ml 03/26/25 14:12 Perflutren Lipid Microspheres 1.5 Ml Vial Diluted To 10 Ml Total Volume IV PUSH 03/29/25 14:14 ONCE PRN adequate visualization Protocol Sodium Chloride 6 ml 03/29/25 05:00 03/29/25 09:46 Sodium Chlor 3% 15 Ml Neb (Respiratory Therapy) INHALATION 03/31/25 05:01 Not Given DAILY@0500 JAYDEN Sodium Chloride 10 ml 03/29/25 14:00 Central Line Flush IV PUSH Q8HR JAYDEN Sodium Chloride 10 ml 03/29/25 09:36 Central Line Flush IV PUSH PRN PRN with TPN bag changes Sodium Chloride 20 ml 03/29/25 09:36 Central Line Flush IV PUSH PRN PRN after blood draws Radiology Results: ITS Impressions Modified Barium Swallow 03/27/25 15:26 IMPRESSION: Oropharyngeal dysphagia with intermittent laryngeal penetration with indeterminate/possible minimal aspiration. Please correlate with speech pathologist findings and specific feeding recommendations. Brain MRI 03/27/25 15:28 IMPRESSION: 1. Normal aging brain with minimal periventricular calcific white matter T2 hyperintensity consistent with chronic small vessel ischemic disease. No acute intracranial process. Cervical Spine MRI 03/28/25 08:39 Impression: Fractured the base of the odontoid process possibly extending from the C2 vertebral body detailed above, most compatible with acute fracture. There is minimal marrow edema and suggestion of possible early cortication along the fracture margins. Alignment appears unchanged as compared to prior CT scans. Anterior fusion of C5 and C6. Moderate to advanced degenerative spondylosis otherwise, as detailed above, with multilevel neural foraminal narrowing. Chest/Abdomen/Pelvis CT 03/28/25 11:45 IMPRESSION: 1. Sigmoid diverticulosis with 6.0 x 5.4 x 3.2 cm gas and feculent material containing cavity consistent with a contained bowel perforation which communicates to the sigmoid colon through a 1.8 x 1.3 cm defect in the wall of t he colon. 2. Nonobstructing left nephrolithiasis. 3. Mild cardiomegaly. No acute cardiopulmonary disease. Abdomen X-Ray 03/28/25 23:27 IMPRESSION: Nasogastric tube in good position and ready for immediate use. Chest X-Ray 03/29/25 09:37 IMPRESSION: 1. Right upper extremity central venous PICC with distal tip at the caudal superior vena cava. 2. No acute cardiopulmonary disease. 3. Left nephrolithiasis. Head CT 03/29/25 09:51 IMPRESSION: 1. No acute intracranial process. 2. Age-related changes including mild to moderate diffuse volume loss and mild scattered white matter attenuation consistent with chronic small vessel ischemic disease. 3. Chronic left frontal craniotomy. Labs Labs: Laboratory Results - last 24 hr 03/28/25 03/28/25 03/28/25 10:48 13:13 13:45 WBC RBC Hgb Hct MCV MCH MCHC RDW Plt Count MPV Immature Gran % (Auto) Neut % (Auto) Lymph % (Auto) [place] % (Auto) Eos % (Auto) Baso % (Auto) Lymph # (Auto) [place] # (Auto) Eos # (Auto) Baso # (Auto) Abs Immat Gran (auto) Absolute Neuts (auto) Absolute Nucleated RBC Band Neutrophils % Nucleated RBC % Platelet Estimate Hypochromasia Anisocytosis Ovalocytes Schistocytes PT INR APTT Puncture Site ABG pH ABG pCO2 ABG pO2 ABG PO2/FiO2 Ratio ABG HCO3 ABG O2 Saturation ABG O2 Content ABG Base Excess A-a Gradient Oxyhemoglobin Carboxyhemoglobin Methemoglobin Reduced Hemoglobin Total Hemoglobin O2 Delivery Device O2 Liters/Min Minute Volume Vent Rate Vent Mode FiO2 Tidal Volume PEEP Peak Inspir Pressure Pressure Support Sodium Potassium Chloride Carbon Dioxide Anion Gap BUN Creatinine Estim Creat Clear Calc Estimated GFR Glucose POC Capillary Glucose Lactic Acid 1.2 Calcium Total Bilirubin AST ALT Alkaline Phosphatase Ammonia Total Protein Albumin Procalcitonin Urine Color Yellow Urine Appearance Cloudy H Urine pH 5.0 Ur Specific [place] 1.031 Urine Protein 2+ H Urine Glucose (UA) Negative Urine Ketones 1+ H Ur Blood (Man) 3+ H Urine Nitrate Negative Urine Bilirubin Negative Urine Urobilinogen 1.0 Add Ur Microanalysis Reviewed Leukocyte Esterase Rfl Trace H Urine RBC 11-20 H Urine WBC 11-20 H Ur Squamous Epith Cells Few Urine Bacteria None seen Urine Casts 3-5 Urine Yeast (Budding) Present H Influenza A (RT-PCR) Negative Influenza B (RT-PCR) Negative RSV (RT-PCR) Negative SARS-CoV-2 RNA (RT-PCR) Negative Blood Type Antibody Screen 03/28/25 03/29/25 03/29/25 16:10 02:47 02:48 WBC 9.0 RBC 2.93 L Hgb 7.8 L Hct 26.2 L MCV 89.4 MCH 26.6 MCHC 29.8 L RDW 17.5 H Plt Count 293 MPV 9.7 Immature Gran % (Auto) 0.3 Neut % (Auto) 88.8 H Lymph % (Auto) 7.7 L [place] % (Auto) 3.0 Eos % (Auto) 0.1 Baso % (Auto) 0.1 L Lymph # (Auto) 0.69 L [place] # (Auto) 0.3 Eos # (Auto) 0.0 Baso # (Auto) 0.0 Abs Immat Gran (auto) 0.03 Absolute Neuts (auto) 8.0 H Absolute Nucleated RBC 0.000 Band Neutrophils % 0 Nucleated RBC % 0.0 Platelet Estimate Adequate Hypochromasia 1+ Anisocytosis 1+ Ovalocytes 1+ Schistocytes None seen PT 17.9 H INR 1.4 APTT 34.3 Puncture Site ABG pH ABG pCO2 ABG pO2 ABG PO2/FiO2 Ratio ABG HCO3 ABG O2 Saturation ABG O2 Content ABG Base Excess A-a Gradient Oxyhemoglobin Carboxyhemoglobin Methemoglobin Reduced Hemoglobin Total Hemoglobin O2 Delivery Device O2 Liters/Min Minute Volume Vent Rate Vent Mode FiO2 Tidal Volume PEEP Peak Inspir Pressure Pressure Support Sodium 145 Potassium 3.8 Chloride 112 H Carbon Dioxide 22 Anion Gap 11 BUN 20 H Creatinine 0.80 Estim Creat Clear Calc 52 Estimated GFR > 60 Glucose 141 H POC Capillary Glucose 136 H Lactic Acid 1.8 Calcium 8.0 L Total Bilirubin 0.5 AST 80 H ALT 34 Alkaline Phosphatase 147 H Ammonia Total Protein 7.0 Albumin 2.8 L Procalcitonin 1.1 Urine Color Urine Appearance Urine pH Ur Specific [place] Urine Protein Urine Glucose (UA) Urine Ketones Ur Blood (Man) Urine Nitrate Urine Bilirubin Urine Urobilinogen Add Ur Microanalysis Leukocyte Esterase Rfl Urine RBC Urine WBC Ur Squamous Epith Cells Urine Bacteria Urine Casts Urine Yeast (Budding) Influenza A (RT-PCR) Influenza B (RT-PCR) RSV (RT-PCR) SARS-CoV-2 RNA (RT-PCR) Blood Type A Positive Antibody Screen Negative 03/29/25 03/29/25 04:27 08:27 WBC RBC Hgb Hct MCV MCH MCHC RDW Plt Count MPV Immature Gran % (Auto) Neut % (Auto) Lymph % (Auto) [place] % (Auto) Eos % (Auto) Baso % (Auto) Lymph # (Auto) [place] # (Auto) Eos # (Auto) Baso # (Auto) Abs Immat Gran (auto) Absolute Neuts (auto) Absolute Nucleated RBC Band Neutrophils % Nucleated RBC % Platelet Estimate Hypochromasia Anisocytosis Ovalocytes Schistocytes PT INR APTT Puncture Site Left radial ABG pH 7.495 H ABG pCO2 31.0 L ABG pO2 199.0 H ABG PO2/FiO2 Ratio 3.98 ABG HCO3 23.4 ABG O2 Saturation 99.5 ABG O2 Content 11.2 L ABG Base Excess 0.3 A-a Gradient 122.6 Oxyhemoglobin 98.6 Carboxyhemoglobin 1.3 Methemoglobin 0.0 Reduced Hemoglobin 0.1 Total Hemoglobin 7.7 L* O2 Delivery Device Ventilator O2 Liters/Min Not Reportable Minute Volume Not Reportable Vent Rate 18 Vent Mode Cmv FiO2 50 Tidal Volume 320 PEEP 5 Peak Inspir Pressure Not Reportable Pressure Support Not Reportable Sodium Potassium Chloride Carbon Dioxide Anion Gap BUN Creatinine Estim Creat Clear Calc Estimated GFR Glucose POC Capillary Glucose Lactic Acid Calcium Total Bilirubin AST ALT Alkaline Phosphatase Ammonia < 9 L Total Protein Albumin Procalcitonin Urine Color Urine Appearance Urine pH Ur Specific [place] Urine Protein Urine Glucose (UA) Urine Ketones Ur Blood (Man) Urine Nitrate Urine Bilirubin Urine Urobilinogen Add Ur Microanalysis Leukocyte Esterase Rfl Urine RBC Urine WBC Ur Squamous Epith Cells Urine Bacteria Urine Casts Urine Yeast (Budding) Influenza A (RT-PCR) Influenza B (RT-PCR) RSV (RT-PCR) SARS-CoV-2 RNA (RT-PCR) Blood Type Antibody Screen
[2025-03-29] MEDS: CENTRAL LINE FLUSH 10 ML IV PUSH ×2 (12:25→21:11)
--- NOTE | 2025-03-29 12:34 | WPDNEUROLOGY ---
Neurology EEG Report General Information Date of Study: 03/28/25 TEST Electroencephalogram DIAGNOSIS history of changes in mental status, and seizure disorder CONDITION OF RECORDING bedside recording EEG NUMBER [id number] CLINICAL HISTORY history of surgery on the left frontal area. Also fall with fracture of the C1-C2. Episodes of aphasia. History of seizure disorder EEG DESCRIPTION The background activity come consists of predominantly theta activity which appears poorly organized. posterior dominant rhythm at 6 hertz with an amplitude of 15-30 microvolts was seen. There is no significant anteroposterior gradient. Nearly continuous focal slowing intermixed with sharp wave activity was seen over left hemisphere particularly in the left frontal area brought the recording. Sharp transients were seen over the left hemisphere . Slow activity with sharp wave activity over the left frontal area appears irregular but extends to central and parietal area at times. It was however seen throughout the recording. Hyperventilation or photic switch were not performed. IMPRESSION This is an abnormal EEG due to following 1. Nearly continuous focal slow wave activity intermixed with sharp wave transients were seen over left frontal area. This may relate to having previous surgery in this area. Focal slowing is suggestive of underlying structural lesion. Sharp transients are considered nonspecific focal interictal abnormality. Clinical and radiographic correlation are recommended. 2. Mild his background slowing suggestive of generalized encephalopathy
[2025-03-29 12:48] LABS: MRSA (PCR) NOT DETECTED (NOT DETECTE)
--- NOTE | 2025-03-29 13:38 | P.PNIM_ITS ---
Progress Note: A&P Assessment and Plan (1) Fever of unknown origin: Code(s): R50.9 - Fever, unspecified Status: Acute Assessment and Plan: patient currently having fevers peaked at 103.2 improves slightly with acetaminophen but returns currently unknown source normal WBC but due to patient's initial clinical presentation on admission and has been ruled out for stroke have some concerns for meningitis. Normal WBC * CT abdomen chest pelvis: Sigmoid diverticulosis with 6.0 x 5.4 x 3.2 cm gas and feculent material containing cavity consistent with a contained bowel perforation which communicates to the sigmoid colon through a 1.8 x 1.3 cm defect in the wall of the colon. Could be potential cause of fever * Surgery consulted * NPO diet * IV Zosyn started stopped ampicillin for broader coverage * lumbar puncture pending re-scheduled for 03/28/2025 * COVID/RSV/ influenza pending * Lactic pending * follow-up UA pending * blood cultures NTGD/repeated blood cultures (2) Altered mental status: Code(s): R41.82 - Altered mental status, unspecified Status: Acute Assessment and Plan: Patient with new onset aphasia and dysphagia post dens fracture. likely previous history of seizures on Keppra [address] head with no acute intracranial abnormalities CTA read defining dens fracture but did show possible right tonsillar abscess. Neurology consulted for any further recommendations would be appreciated. Need to R/O stroke. patient's altered mental status improving overall is answering questions and following directions * MRI brain/Brainstem no acute intracranial aging brain * MRI Cervical re-identified acute cervical fracture unchanged from previous imaging * EEG * Keppra IV pending swallowing evaluation * No AC previous history of subarachnoid and subdural hemorrhage (3) Dens fracture: Code(s): S12.110A - Anterior displaced Type II dens fracture, initial encounter for closed fracture Status: Acute Assessment and Plan: patient's fracture has been back on February [address] [facility] no surgery no intervention at the time * neurosurgery consulted there is any need for further recommendations * maintain C-collar at all times * pain management * PT/OT * monitor airway (4) Hypertension: Code(s): I10 - Essential (primary) hypertension Status: Acute Assessment and Plan: * Started IV metoprolol 2.5 QID currently NPO * Monitor BP per unit protocol (5) Aphasia: Code(s): R47.01 - Aphasia Status: Resolved Assessment and Plan: unsure cause of patient's new aphasia, CT and CTA with no acute findings but could be secondary to inflammation post den's fracture. CTA did show possible tonsillar abscess in enhancement the lingula tonsils. Speech therapy following. RESOLVED (6) Dysphagia: Code(s): R13.10 - Dysphagia, unspecified Status: Acute Assessment and Plan: Passed swallow evaluation Level 7 diet (7) Seizure disorder: Code(s): G40.909 - Epilepsy, unspecified, not intractable, without status epilepticus Status: Acute Assessment and Plan: patient on oral Keppra 1500 b.i.d. seizure history * due to NPO status started patient on IV Keppra 1500 mg b.i.d. (8) Tachycardia: Code(s): R00.0 - Tachycardia, unspecified Status: Acute Assessment and Plan: * Patient NPO started on IV metoprolol 2.5 q.i.d. * continues cardiac monitoring (9) UTI (urinary tract infection): Code(s): N39.0 - Urinary tract infection, site not specified Status: Resolved Assessment and Plan: appears patient had been treated for 3 weeks with Keflex with no relief of symptoms do not have previous micro. receive Rocephin in the emergency department * will give 1 time dose gentamicin * culture still pending (10) Perforation bowel: Code(s): K63.1 - Perforation of intestine (nontraumatic) Status: Acute Assessment and Plan: CT showing Sigmoid diverticulosis with 6.0 x 5.4 x 3.2 cm gas and feculent material containing cavity consistent with a contained bowel perforation which communicates to the sigmoid colon through a 1.8 x 1.3 cm defect in the wall of the colon. patient did have rebound tenderness to the abdomen, Normal WBC. * Surgery consulted * NPO * Lactic pending * repeated blood cultures * Started IV Zosyn Plan patient with c/o abdominal pain had CT scan of the abdomen and pelvic which showed sigmoid diverticulosis with 6.0 x 5.4 x 3.2 cm gas and feculent material containing cavity consistent with a contained bowel perforation which communicates to the sigmoid colon through a 1.8 x 1.3 cm defect in the wall of the colon. 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 patient is currently on vent. does not have ostomy function as of now, remain stable on vent in the ICU and will monitor and follow the patient. Code status: Full code per patient DVT prophylaxis: SCD's Stress ulcer prophylaxis: Protonix 40 daily PT/OT notes: Pending Subjective Date/time seen: 03/29/25 13:38 Interval history: Patient is a 74 year old female admitted for Further evaluation of altered mental status with new onset aphasia dysphagia. 03/28/2025: Patient more alert following commands and no longer aphasic and passed swallow evaluation. Patient however has new fevers peaked at 103.2 with no current known source, considering her symptoms on admission have some concerns for Meningitis. Patient did have some rebound tenderness to ABD palpation no N/V, No BM for 4 days. patient with c/o abdominal pain had CT scan of the abdomen and pelvic which showed sigmoid diverticulosis with 6.0 x 5.4 x 3.2 cm gas and feculent material containing cavity consistent with a contained bowel perforation which communicates to the sigmoid colon through a 1.8 x 1.3 cm defect in the wall of the colon. 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 patient is current ly on vent. does not have ostomy function as of now, remain stable on vent in the ICU and will monitor and follow the patient. Review of Systems Review of Systems: All systems reviewed & are unremarkable except as noted in HPI and below ROS unobtainable: Yes unobtainable due to endotracheal tube, unobtainable due to medical condition and unobtainable due to mental status Exam Narrative: Patient is comfortable, NAD HEENT: ET tube in place LUNGS:CTA HEART: RR S1S2 ABD: BS+, Soft and nontender Lower extremities: no edema SKIN: nonjaundiced Neuro: on vent and sedated. Objective Data Vital Signs Vital Signs: Vital Signs - 24 hr 03/28/25 13:47 03/28/25 14:00 03/28/25 16:00 Temperature 37.2 C 38.0 C H Pulse Rate 98 106 H Respiratory Rate 18 Blood Pressure 133/75 Pulse Oximetry 100 Oxygen Delivery Oxygen Flow Rate Fraction of Inspired Oxygen 03/28/25 16:00 03/28/25 16:32 03/28/25 18:17 Temperature 37.6 C H Pulse Rate 109 H 109 H 99 Respiratory Rate 16 Blood Pressure 121/66 Pulse Oximetry 100 Oxygen Delivery Oxygen Flow Rate Fraction of Inspired Oxygen 03/28/25 18:26 03/28/25 18:55 03/28/25 22:40 Temperature 37.6 C H 36.9 C 36.6 C Pulse Rate 97 93 93 Respiratory Rate 16 18 22 H Blood Pressure 133/64 129/64 131/81 Pulse Oximetry 100 95 97 Oxygen Delivery Simple Face Mask Oxygen Flow Rate 8 Fraction of Inspired Oxygen 03/28/25 22:55 03/28/25 23:05 03/28/25 23:20 Temperature Pulse Rate 96 97 106 H Respiratory Rate 17 18 18 Blood Pressure 136/80 131/78 123/87 Pulse Oximetry 98 97 100 Oxygen Delivery Simple Face Mask Simple Face Mask Simple Face Mask Oxygen Flow Rate 8 8 8 Fraction of Inspired Oxygen 03/28/25 23:35 03/28/25 23:45 03/29/25 00:00 Temperature 36.4 C Pulse Rate 106 H 108 H 113 H Respiratory Rate 20 20 22 H Blood Pressure 115/75 115/70 131/70 Pulse Oximetry 94 99 99 Oxygen Delivery Room Air Room Air Room Air Oxygen Flow Rate Fraction of Inspired Oxygen 03/29/25 00:00 03/29/25 00:00 03/29/25 00:02 Temperature 37.8 C H Pulse Rate 120 H 120 H 120 H Respiratory Rate 16 17 Blood Pressure 135/66 Pulse Oximetry 100 95 Oxygen Delivery Room Air Oxygen Flow Rate Fraction of Inspired Oxygen 03/29/25 00:17 03/29/25 00:23 03/29/25 00:47 Temperature 37.8 C H Pulse Rate 122 H 120 H 110 H Respiratory Rate 16 Blood Pressure 135/66 135/64 Pulse Oximetry 100 Oxygen Delivery Oxygen Flow Rate Fraction of Inspired Oxygen 03/29/25 01:47 03/29/25 02:01 03/29/25 03:01 Temperature 39.5 C H 39.5 C H 38.1 C H Pulse Rate 127 H Respiratory Rate 21 H Blood Pressure 148/71 H Pulse Oximetry Oxygen Delivery Oxygen Flow Rate Fraction of Inspired Oxygen 03/29/25 03:14 03/29/25 03:14 03/29/25 03:15 Temperature Pulse Rate 107 H 74 107 H Respiratory Rate 18 18 Blood Pressure Pulse Oximetry 100 Oxygen Delivery Mechanical Ventilation Oxygen Flow Rate Fraction of Inspired Oxygen 50 03/29/25 03:50 03/29/25 04:00 03/29/25 04:00 Temperature Pulse Rate 122 H 100 100 Respiratory Rate 20 18 18 Blood Pressure 136/78 Pulse Oximetry 96 Oxygen Delivery Room Air Oxygen Flow Rate Fraction of Inspired Oxygen 03/29/25 04:00 03/29/25 04:28 03/29/25 05:00 Temperature Pulse Rate 102 H 94 92 Respiratory Rate 18 Blood Pressure Pulse Oximetry 100 Oxygen Delivery Mechanical Ventilation Oxygen Flow Rate Fraction of Inspired Oxygen 50 03/29/25 05:00 03/29/25 06:00 03/29/25 06:00 Temperature Pulse Rate 92 90 90 Respiratory Rate 18 18 18 Blood Pressure Pulse Oximetry Oxygen Delivery Oxygen Flow Rate Fraction of Inspired Oxygen 03/29/25 06:00 03/29/25 06:15 03/29/25 06:15 Temperature Pulse Rate 90 89 89 Respiratory Rate 18 18 Blood Pressure Pulse Oximetry Oxygen Delivery Oxygen Flow Rate Fraction of Inspired Oxygen 03/29/25 06:39 03/29/25 06:50 03/29/25 08:00 Temperature 36.5 C Pulse Rate 80 85 83 Respiratory Rate 17 17 Blood Pressure 139/75 Pulse Oximetry 100 Oxygen Delivery Oxygen Flow Rate Fraction of Inspired Oxygen 03/29/25 08:00 03/29/25 08:00 03/29/25 08:00 Temperature Pulse Rate 83 83 Respiratory Rate 16 16 Blood Pressure Pulse Oximetry Oxygen Delivery Mechanical Ventilation Oxygen Flow Rate Fraction of Inspired Oxygen 40 03/29/25 08:00 03/29/25 08:15 03/29/25 10:00 Temperature Pulse Rate 83 82 89 Respiratory Rate 16 Blood Pressure Pulse Oximetry 100 Oxygen Delivery Mechanical Ventilation Oxygen Flow Rate Fraction of Inspired Oxygen 40 03/29/25 10:00 03/29/25 10:00 03/29/25 10:00 Temperature 36.7 C Pulse Rate 89 87 82 Respiratory Rate 16 16 Blood Pressure 123/66 Pulse Oximetry 100 Oxygen Delivery Oxygen Flow Rate Fraction of Inspired Oxygen 03/29/25 10:43 03/29/25 12:00 03/29/25 12:00 Temperature 37.1 C Pulse Rate 95 81 87 Respiratory Rate 16 16 Blood Pressure 87/56 L Pulse Oximetry 100 93 Oxygen Delivery Mechanical Ventilation Oxygen Flow Rate Fraction of Inspired Oxygen 40 03/29/25 12:00 03/29/25 12:00 03/29/25 12:00 Temperature Pulse Rate 87 Respiratory Rate 16 Blood Pressure Pulse Oximetry Oxygen Delivery Mechanical Ventilation Oxygen Flow Rate Fraction of Inspired Oxygen 40 40 03/29/25 12:00 Temperature Pulse Rate 86 Respiratory Rate Blood Pressure Pulse Oximetry Oxygen Delivery Oxygen Flow Rate Fraction of Inspired Oxygen Intake/Output Intake/Output: Intake & Output 03/26/25 03/27/25 03/28/25 03/29/25 23:59 23:59 23:59 23:59 Intake Total 245 877 3648 3810.8 Output Total 350 975 960 0 Balance -150 -55 479 3810.8 Meds/Results Medications: Active Medications Generic Name Dose Route Start Last Admin Trade Name Freq PRN Reason Stop Dose Admin Acetaminophen 650 mg 03/26/25 14:08 03/28/25 16:31 Acetaminophen 325 Mg Tablet PO 650 mg Q4H PRN Administration Mild Pain (1-3) or Fever Albuterol/Ipratropium 3 ml 03/29/25 08:07 Ipratropium 0.5 Mg/Albuterol Sulfate 2.5 Mg Ampul.Neb 3 Ml INHALATION Q6HRT PRN Wheezing Enoxaparin Sodium 40 mg 03/29/25 09:00 03/29/25 09:45 Enoxaparin 40 Mg/0.4 Ml Syringe SUB-Q 40 mg DAILY JAYDEN Administration Levetiracetam 1,500 mg in 100 mls @ 400 mls/hr 03/26/25 21:00 03/29/25 10:29 Keppra Iv IVPB Infused Q12HR JAYDEN Infusion Piperacillin/Tazobactam/Dextrose 3.375 gm in 50 mls @ 100 mls/hr 03/28/25 13:00 03/29/25 13:22 Zosyn 3.375 Gm/Ns 50 Ml IVPB Infused Q6H JAYDEN Infusion Lactated Ringer's 1,000 mls @ 100 mls/hr 03/29/25 00:02 03/29/25 08:36 Lr - Lactated Ringers Iv IV CONT Infused .Q10H JAYDEN Infusion Fentanyl Citrate 2,500 mcg in 250 mls @ 0 mls/hr 03/29/25 02:55 03/29/25 12:00 Fentanyl 2,500 Mcg/Ns 250 Ml IV CONT 0 mcg/hr .Q0M JAYDEN 0 mls/hr Titration Protocol 0 MCG/HR Midazolam HCl 100 mg in 100 mls @ 0 mls/hr 03/29/25 02:55 03/29/25 12:00 Versed 100 Mg/Ns 100 Ml IV CONT 0 mg/hr .Q0M JAYDEN 0 mls/hr Titration Protocol 0 MG/HR Multi-Ingred Cream/Lotion/Oil/Oint 1 applic 03/29/25 09:00 03/29/25 09:45 Mineral Oil/White Petrolatum Ointment EACH EYE 1 applic Q12HR JAYDEN Administration Naloxone HCl 0.1 mg 03/29/25 00:02 Naloxone Hcl 0.4 Mg/Ml Vial IV PUSH Q2M PRN Opiate Reversal Ondansetron HCl 4 mg 03/26/25 14:08 Ondansetron Inj 4 Mg/2 Ml Vial IV PUSH Q6H PRN Nausea And Vomiting Pantoprazole Sodium 40 mg 03/29/25 09:00 03/29/25 09:45 Pantoprazole Sodium Iv 40 Mg Vial IV PUSH 40 mg DAILY JAYDEN Administration Perflutren Lipid Microsphere 0 ml 03/26/25 14:12 Perflutren Lipid Microspheres 1.5 Ml Vial Diluted To 10 Ml Total Volume IV PUSH 03/29/25 14:14 ONCE PRN adequate visualization Protocol Sodium Chloride 6 ml 03/29/25 05:00 03/29/25 09:46 Sodium Chlor 3% 15 Ml Neb (Respiratory Therapy) INHALATION 03/31/25 05:01 Not Given DAILY@0500 JAYDEN Sodium Chloride 10 ml 03/29/25 14:00 03/29/25 12:25 Central Line Flush IV PUSH 10 ml Q8HR JAYDEN Administration Sodium Chloride 10 ml 03/29/25 09:36 Central Line Flush IV PUSH PRN PRN with TPN bag changes Sodium Chloride 20 ml 03/29/25 09:36 Central Line Flush IV PUSH PRN PRN after blood draws Radiology Results: ITS Impressions Modified Barium Swallow 03/27/25 15:26 IMPRESSION: Oropharyngeal dysphagia with intermittent laryngeal penetration with indeterminate/possible minimal aspiration. Please correlate with speech pathologist findings and specific feeding recommendations. Brain MRI 03/27/25 15:28 IMPRESSION: 1. Normal aging brain with minimal periventricular calcific white matter T2 hyperintensity consistent with chronic small vessel ischemic disease. No acute intracranial process. Cervical Spine MRI 03/28/25 08:39 Impression: Fractured the base of the odontoid process possibly extending from the C2 vertebral body detailed above, most compatible with acute fracture. There is minimal marrow edema and suggestion of possible early cortication along the fracture margins. Alignment appears unchanged as compared to prior CT scans. Anterior fusion of C5 and C6. Moderate to advanced degenerative spondylosis otherwise, as detailed above, with multilevel neural foraminal narrowing. Chest/Abdomen/Pelvis CT 03/28/25 11:45 IMPRESSION: 1. Sigmoid diverticulosis with 6.0 x 5.4 x 3.2 cm gas and feculent material containing cavity consistent with a contained bowel perforation which communicates to the sigmoid colon through a 1.8 x 1.3 cm defect in the wall of the colon. 2. Nonobstructing left nephrolithiasis. 3. Mild cardiomegaly. No acute cardiopulmonary disease. Abdomen X-Ray 03/28/25 23:27 IMPRESSION: Nasogastric tube in good position and ready for immediate use. Chest X-Ray 03/29/25 09:37 IMPRESSION: 1. Right upper extremity central venous PICC with distal tip at the caudal superior vena cava. 2. No acute cardiopulmonary disease. 3. Left nephrolithiasis. Head CT 03/29/25 09:51 IMPRESSION: 1. No acute intracranial process. 2. Age-related changes including mild to moderate diffuse volume loss and mild scattered white matter attenuation consistent with chronic small vessel ischemic disease. 3. Chronic left frontal craniotomy. Venous Doppler Study 03/29/25 11:29 IMPRESSION: 1. Thrombosis of the left cephalic and basilic veins. Labs Labs: Laboratory Results - last 24 hr 03/28/25 03/28/25 03/28/25 10:48 13:45 16:10 WBC RBC Hgb Hct MCV MCH MCHC RDW Plt Count MPV Immature Gran % (Auto) Neut % (Auto) Lymph % (Auto) [place] % (Auto) Eos % (Auto) Baso % (Auto) Lymph # (Auto) [place] # (Auto) Eos # (Auto) Baso # (Auto) Abs Immat Gran (auto) Absolute Neuts (auto) Absolute Nucleated RBC Band Neutrophils % Nucleated RBC % Platelet Estimate Hypochromasia Anisocytosis Ovalocytes Schistocytes PT INR APTT Puncture Site ABG pH ABG pCO2 ABG pO2 ABG PO2/FiO2 Ratio ABG HCO3 ABG O2 Saturation ABG O2 Content ABG Base Excess A-a Gradient Oxyhemoglobin Carboxyhemoglobin Methemoglobin Reduced Hemoglobin Total Hemoglobin O2 Delivery Device O2 Liters/Min Minute Volume Vent Rate Vent Mode FiO2 Tidal Volume PEEP Peak Inspir Pressure Pressure Support Sodium Potassium Chloride Carbon Dioxide Anion Gap BUN Creatinine Estim Creat Clear Calc Estimated GFR Glucose POC Capillary Glucose Lactic Acid Calcium Total Bilirubin AST ALT Alkaline Phosphatase Ammonia Total Protein Albumin Procalcitonin Urine Color Yellow Urine Appearance Cloudy H Urine pH 5.0 Ur Specific [place] 1.031 Urine Protein 2+ H Urine Glucose (UA) Negative Urine Ketones 1+ H Ur Blood (Man) 3+ H Urine Nitrate Negative Urine Bilirubin Negative Urine Urobilinogen 1.0 Add Ur Microanalysis Reviewed Leukocyte Esterase Rfl Trace H Urine RBC 11-20 H Urine WBC 11-20 H Ur Squamous Epith Cells Few Urine Bacteria None seen Urine Casts 3-5 Urine Yeast (Budding) Present H Nasal MRSA (PCR) Influenza A (RT-PCR) Negative Influenza B (RT-PCR) Negative RSV (RT-PCR) Negative SARS-CoV-2 RNA (RT-PCR) Negative Blood Type A Positive Antibody Screen Negative 03/29/25 03/29/25 03/29/25 02:47 02:48 04:27 WBC 9.0 RBC 2.93 L Hgb 7.8 L Hct 26.2 L MCV 89.4 MCH 26.6 MCHC 29.8 L RDW 17.5 H Plt Count 293 MPV 9.7 Immature Gran % (Auto) 0.3 Neut % (Auto) 88.8 H Lymph % (Auto) 7.7 L [place] % (Auto) 3.0 Eos % (Auto) 0.1 Baso % (Auto) 0.1 L Lymph # (Auto) 0.69 L [place] # (Auto) 0.3 Eos # (Auto) 0.0 Baso # (Auto) 0.0 Abs Immat Gran (auto) 0.03 Absolute Neuts (auto) 8.0 H Absolute Nucleated RBC 0.000 Band Neutrophils % 0 Nucleated RBC % 0.0 Platelet Estimate Adequate Hypochromasia 1+ Anisocytosis 1+ Ovalocytes 1+ Schistocytes None seen PT 17.9 H INR 1.4 APTT 34.3 Puncture Site Left radial ABG pH 7.495 H ABG pCO2 31.0 L ABG pO2 199.0 H ABG PO2/FiO2 Ratio 3.98 ABG HCO3 23.4 ABG O2 Saturation 99.5 ABG O2 Content 11.2 L ABG Base Excess 0.3 A-a Gradient 122.6 Oxyhemoglobin 98.6 Carboxyhemoglobin 1.3 Methemoglobin 0.0 Reduced Hemoglobin 0.1 Total Hemoglobin 7.7 L* O2 Delivery Device Ventilator O2 Liters/Min Not Reportable Minute Volume Not Reportable Vent Rate 18 Vent Mode Cmv FiO2 50 Tidal Volume 320 PEEP 5 Peak Inspir Pressure Not Reportable Pressure Support Not Reportable Sodium 145 Potassium 3.8 Chloride 112 H Carbon Dioxide 22 Anion Gap 11 BUN 20 H Creatinine 0.80 Estim Creat Clear Calc 52 Estimated GFR > 60 Glucose 141 H POC Capillary Glucose 136 H Lactic Acid 1.8 Calcium 8.0 L Total Bilirubin 0.5 AST 80 H ALT 34 Alkaline Phosphatase 147 H Ammonia Total Protein 7.0 Albumin 2.8 L Procalcitonin 1.1 Urine Color Urine Appearance Urine pH Ur Specific [place] Urine Protein Urine Glucose (UA) Urine Ketones Ur Blood (Man) Urine Nitrate Urine Bilirubin Urine Urobilinogen Add Ur Microanalysis Leukocyte Esterase Rfl Urine RBC Urine WBC Ur Squamous Epith Cells Urine Bacteria Urine Casts Urine Yeast (Budding) Nasal MRSA (PCR) Influenza A (RT-PCR) Influenza B (RT-PCR) RSV (RT-PCR) SARS-CoV-2 RNA (RT-PCR) Blood Type Antibody Screen 03/29/25 03/29/25 08:27 11:33 WBC RBC Hgb Hct MCV MCH MCHC RDW Plt Count MPV Immature Gran % (Auto) Neut % (Auto) Lymph % (Auto) [place] % (Auto) Eos % (Auto) Baso % (Auto) Lymph # (Auto) [place] # (Auto) Eos # (Auto) Baso # (Auto) Abs Immat Gran (auto) Absolute Neuts (auto) Absolute Nucleated RBC Band Neutrophils % Nucleated RBC % Platelet Estimate Hypochromasia Anisocytosis Ovalocytes Schistocytes PT INR APTT Puncture Site ABG pH ABG pCO2 ABG pO2 ABG PO2/FiO2 Ratio ABG HCO3 ABG O2 Saturation ABG O2 Content ABG Base Excess A-a Gradient Oxyhemoglobin Carboxyhemoglobin Methemoglobin Reduced Hemoglobin Total Hemoglobin O2 Delivery Device O2 Liters/Min Minute Volume Vent Rate Vent Mode FiO2 Tidal Volume PEEP Peak Inspir Pressure Pressure Support Sodium Potassium Chloride Carbon Dioxide Anion Gap BUN Creatinine Estim Creat Clear Calc Estimated GFR Glucose POC Capillary Glucose Lactic Acid Calcium Total Bilirubin AST ALT Alkaline Phosphatase Ammonia < 9 L Total Protein Albumin Procalcitonin Urine Color Urine Appearance Urine pH Ur Specific [place] Urine Protein Urine Glucose (UA) Urine Ketones Ur Blood (Man) Urine Nitrate Urine Bilirubin Urine Urobilinogen Add Ur Microanalysis Leukocyte Esterase Rfl Urine RBC Urine WBC Ur Squamous Epith Cells Urine Bacteria Urine Casts Urine Yeast (Budding) Nasal MRSA (PCR) Not detected Influenza A (RT-PCR) Influenza B (RT-PCR) RSV (RT-PCR) SARS-CoV-2 RNA (RT-PCR) Blood Type Antibody Screen Quality VTE Prophylaxis VTE prophylaxis: mechanical ordered and pharmacologic ordered
--- NOTE | 2025-03-29 15:50 | P.PNNEUR_ITS ---
Progress Note: A&P Assessment and Plan (1) Seizure disorder: Code(s): G40.909 - Epilepsy, unspecified, not intractable, without status epilepticus Status: Acute (2) Perforation bowel: Code(s): K63.1 - Perforation of intestine (nontraumatic) Status: Acute Plan The patient had a surgery for perforation of the bowel yesterday. She is currently intubated. I do not see any reason to do a spinal tap which was consider at the time when patient's condition is still being analyzed by the hospitalist team. I spoke to Dr. bhakta of the ICU and we agreed with the following up for seizures and continue the Keppra as before. I reviewed MRI of the brain and said that of cervical spine performed on 03/27/2024 which did not show any acute changes. Left frontal craniotomy was described. EEG findings were discussed. MRI cervical spine shown fracture of the C1 to anterior fusion at C5-6 and degenerative spondylosis. Subjective Date/time seen: 03/29/25 15:50 Interval history: The patient is 74-year-old female with history of multiple neurological and neurosurgical problems and seizure disorder currently on Keppra. She a bowel perforation and for this he had a surgery yesterday and she is currently intubated and on sedation and hence was unable to offer any history as such. I spoke to the ICU in charge Dr. Perera patient has not had any further seizures. an MRI of the brain was performed which has shown some white matter changes. MRI of cervical spine was also performed which did not show any spinal cord compression. Patient known to have fracture of the C1 and C2 and this has been evaluated by Neurosurgery who did not feel that this was any further intervention. CT angiogram head and neck did not show any significant abnormalities. She had a surgeon the left frontal area. EEG performed 1 day ago had shown focal slowing and sharp transients over the left frontal area which would most likely correlate with the previous surgery in this area. Patient is currently on midazolam and levetiracetam 1500 mg twice a day. Review of Systems Review of Systems: ROS unobtainable: Yes unobtainable due to mental status Exam Narrative: Patient intubated and on sedation unable to cooperate as such for any detailed neurological testing. Objective Data Vital Signs Vital Signs: Vital Signs - 24 hr 03/28/25 16:00 03/28/25 16:00 03/28/25 16:32 Temperature 100.4 F H Pulse Rate 106 H 109 H 109 H Respiratory Rate 18 Blood Pressure 133/75 Pulse Oximetry 100 Oxygen Delivery Oxygen Flow Rate Fraction of Inspired Oxygen 03/28/25 18:17 03/28/25 18:26 03/28/25 18:55 Temperature 99.7 F H 99.7 F H 98.5 F Pulse Rate 99 97 93 Respiratory Rate 16 16 18 Blood Pressure 121/66 133/64 129/64 Pulse Oximetry 100 100 95 Oxygen Delivery Oxygen Flow Rate Fraction of Inspired Oxygen 03/28/25 22:40 03/28/25 22:55 03/28/25 23:05 Temperature 97.8 F Pulse Rate 93 96 97 Respiratory Rate 22 H 17 18 Blood Pressure 131/81 136/80 131/78 Pulse Oximetry 97 98 97 Oxygen Delivery Simple Face Mask Simple Face Mask Simple Face Mask Oxygen Flow Rate 8 8 8 Fraction of Inspired Oxygen 03/28/25 23:20 03/28/25 23:35 03/28/25 23:45 Temperature 97.6 F Pulse Rate 106 H 106 H 108 H Respiratory Rate 18 20 20 Blood Pressure 123/87 115/75 115/70 Pulse Oximetry 100 94 99 Oxygen Delivery Simple Face Mask Room Air Room Air Oxygen Flow Rate 8 Fraction of Inspired Oxygen 03/29/25 00:00 03/29/25 00:00 03/29/25 00:00 Temperature Pulse Rate 113 H 120 H 120 H Respiratory Rate 22 H 16 Blood Pressure 131/70 Pulse Oximetry 99 100 Oxygen Delivery Room Air Room Air Oxygen Flow Rate Fraction of Inspired Oxygen 03/29/25 00:02 03/29/25 00:17 03/29/25 00:23 Temperature 100.0 F H 100.0 F H Pulse Rate 120 H 122 H 120 H Respiratory Rate 17 16 Blood Pressure 135/66 135/66 Pulse Oximetry 95 100 Oxygen Delivery Oxygen Flow Rate Fraction of Inspired Oxygen 03/29/25 00:47 03/29/25 01:47 03/29/25 02:01 Temperature 103.1 F H 103.1 F H Pulse Rate 110 H 127 H Respiratory Rate 21 H Blood Pressure 135/64 148/71 H Pulse Oximetry Oxygen Delivery Oxygen Flow Rate Fraction of Inspired Oxygen 03/29/25 03:01 03/29/25 03:14 03/29/25 03:14 Temperature 100.6 F H Pulse Rate 107 H 74 Respiratory Rate 18 Blood Pressure Pulse Oximetry 100 Oxygen Delivery Mechanical Ventilation Oxygen Flow Rate Fraction of Inspired Oxygen 50 03/29/25 03:15 03/29/25 03:50 03/29/25 04:00 Temperature Pulse Rate 107 H 122 H 100 Respiratory Rate 18 20 18 Blood Pressure 136/78 Pulse Oximetry 96 Oxygen Delivery Room Air Oxygen Flow Rate Fraction of Inspired Oxygen 03/29/25 04:00 03/29/25 04:00 03/29/25 04:28 Temperature Pulse Rate 100 102 H 94 Respiratory Rate 18 Blood Pressure Pulse Oximetry 100 Oxygen Delivery Mechanical Ventilation Oxygen Flow Rate Fraction of Inspired Oxygen 50 03/29/25 05:00 03/29/25 05:00 03/29/25 06:00 Temperature Pulse Rate 92 92 90 Respiratory Rate 18 18 18 Blood Pressure Pulse Oximetry Oxygen Delivery Oxygen Flow Rate Fraction of Inspired Oxygen 03/29/25 06:00 03/29/25 06:00 03/29/25 06:15 Temperature Pulse Rate 90 90 89 Respiratory Rate 18 18 Blood Pressure Pulse Oximetry Oxygen Delivery Oxygen Flow Rate Fraction of Inspired Oxygen 03/29/25 06:15 03/29/25 06:39 03/29/25 06:50 Temperature Pulse Rate 89 80 85 Respiratory Rate 18 17 Blood Pressure Pulse Oximetry Oxygen Delivery Oxygen Flow Rate Fraction of Inspired Oxygen 03/29/25 08:00 03/29/25 08:00 03/29/25 08:00 Temperature 97.7 F Pulse Rate 83 83 83 Respiratory Rate 17 16 16 Blood Pressure 139/75 Pulse Oximetry 100 Oxygen Delivery Oxygen Flow Rate Fraction of Inspired Oxygen 03/29/25 08:00 03/29/25 08:00 03/29/25 08:15 Temperature Pulse Rate 83 82 Respiratory Rate Blood Pressure Pulse Oximetry 100 Oxygen Delivery Mechanical Ventilation Mechanical Ventilation Oxygen Flow Rate Fraction of Inspired Oxygen 40 40 03/29/25 10:00 03/29/25 10:00 03/29/25 10:00 Temperature Pulse Rate 89 89 87 Respiratory Rate 16 16 Blood Pressure Pulse Oximetry Oxygen Delivery Oxygen Flow Rate Fraction of Inspired Oxygen 03/29/25 10:00 03/29/25 10:43 03/29/25 12:00 Temperature 98.1 F 98.8 F Pulse Rate 82 95 81 Respiratory Rate 16 16 Blood Pressure 123/66 87/56 L Pulse Oximetry 100 100 93 Oxygen Delivery Mechanical Ventilation Oxygen Flow Rate Fraction of Inspired Oxygen 40 03/29/25 12:00 03/29/25 12:00 03/29/25 12:00 Temperature Pulse Rate 87 87 Respiratory Rate 16 16 Blood Pressure Pulse Oximetry Oxygen Delivery Mechanical Ventilation Oxygen Flow Rate Fraction of Inspired Oxygen 40 03/29/25 12:00 03/29/25 12:00 03/29/25 13:47 Temperature Pulse Rate 86 93 Respiratory Rate Blood Pressure Pulse Oximetry 100 Oxygen Delivery Mechanical Ventilation Oxygen Flow Rate Fraction of Inspired Oxygen 40 40 03/29/25 14:00 03/29/25 14:00 03/29/25 14:00 Temperature 99.2 F Pulse Rate 92 92 92 Respiratory Rate 16 16 Blood Pressure 126/66 Pulse Oximetry 99 Oxygen Delivery Oxygen Flow Rate Fraction of Inspired Oxygen 03/29/25 14:00 Temperature Pulse Rate 92 Respiratory Rate 16 Blood Pressure Pulse Oximetry Oxygen Delivery Oxygen Flow Rate Fraction of Inspired Oxygen Intake/Output Intake/Output: Intake & Output 03/26/25 03/27/25 03/28/25 03/29/25 23:59 23:59 23:59 23:59 Intake Total 108 924 4686 3810.8 Output Total 350 975 960 0 Balance -150 -55 479 3810.8 Meds/Results Medications: Active Medications Generic Name Dose Route Start Last Admin Trade Name Freq PRN Reason Stop Dose Admin Acetaminophen 650 mg 03/26/25 14:08 03/28/25 16:31 Acetaminophen 325 Mg Tablet PO 650 mg Q4H PRN Administration Mild Pain (1-3) or Fever Albuterol/Ipratropium 3 ml 03/29/25 08:07 Ipratropium 0.5 Mg/Albuterol Sulfate 2.5 Mg Ampul.Neb 3 Ml INHALATION Q6HRT PRN Wheezing Enoxaparin Sodium 40 mg 03/29/25 09:00 03/29/25 09:45 Enoxaparin 40 Mg/0.4 Ml Syringe SUB-Q 40 mg DAILY JAYDEN Administration Levetiracetam 1,500 mg in 100 mls @ 400 mls/hr 03/26/25 21:00 03/29/25 10:29 Keppra Iv IVPB Infused Q12HR JAYDEN Infusion Piperacillin/Tazobactam/Dextrose 3.375 gm in 50 mls @ 100 mls/hr 03/28/25 13:00 03/29/25 13:22 Zosyn 3.375 Gm/Ns 50 Ml IVPB Infused Q6H JAYDEN Infusion Lactated Ringer's 1,000 mls @ 100 mls/hr 03/29/25 00:02 03/29/25 08:36 Lr - Lactated Ringers Iv IV CONT Infused .Q10H JAYDEN Infusion Fentanyl Citrate 2,500 mcg in 250 mls @ 0 mls/hr 03/29/25 02:55 03/29/25 14:00 Fentanyl 2,500 Mcg/Ns 250 Ml IV CONT 0 mcg/hr .Q0M JAYDEN 0 mls/hr Titration Protocol 0 MCG/HR Midazolam HCl 100 mg in 100 mls @ 0 mls/hr 03/29/25 02:55 03/29/25 14:00 Versed 100 Mg/Ns 100 Ml IV CONT 0 mg/hr .Q0M JAYDEN 0 mls/hr Titration Protocol 0 MG/HR Multi-Ingred Cream/Lotion/Oil/Oint 1 applic 03/29/25 09:00 03/29/25 09:45 Mineral Oil/White Petrolatum Ointment EACH EYE 1 applic Q12HR JAYDEN Administration Naloxone HCl 0.1 mg 03/29/25 00:02 Naloxone Hcl 0.4 Mg/Ml Vial IV PUSH Q2M PRN Opiate Reversal Ondansetron HCl 4 mg 03/26/25 14:08 Ondansetron Inj 4 Mg/2 Ml Vial IV PUSH Q6H PRN Nausea And Vomiting Pantoprazole Sodium 40 mg 03/29/25 09:00 03/29/25 09:45 Pantoprazole Sodium Iv 40 Mg Vial IV PUSH 40 mg DAILY JAYDEN Administration Sodium Chloride 6 ml 03/29/25 05:00 03/29/25 09:46 Sodium Chlor 3% 15 Ml Neb (Respiratory Therapy) INHALATION 03/31/25 05:01 Not Given DAILY@0500 JAYEDN Sodium Chloride 10 ml 03/29/25 14:00 03/29/25 12:25 Central Line Flush IV PUSH 10 ml Q8HR JAYDEN Administration Sodium Chloride 10 ml 03/29/25 09:36 Central Line Flush IV PUSH PRN PRN with TPN bag changes Sodium Chloride 20 ml 03/29/25 09:36 Central Line Flush IV PUSH PRN PRN after blood draws Radiology Results: ITS Impressions Modified Barium Swallow 03/27/25 15:26 IMPRESSION: Oropharyngeal dysphagia with intermittent laryngeal penetration with indeterminate/possible minimal aspiration. Please correlate with speech pathologist findings and specific feeding recommendations. Brain MRI 03/27/25 15:28 IMPRESSION: 1. Normal aging brain with minimal periventricular calcific white matter T2 hyperintensity consistent with chronic small vessel ischemic disease. No acute intracranial process. Cervical Spine MRI 03/28/25 08:39 Impression: Fractured the base of the odontoid process possibly extending from the C2 verteb ral body detailed above, most compatible with acute fracture. There is minimal marrow edema and suggestion of possible early cortication along the fracture margins. Alignment appears unchanged as compared to prior CT scans. Anterior fusion of C5 and C6. Moderate to advanced degenerative spondylosis otherwise, as detailed above, with multilevel neural foraminal narrowing. Chest/Abdomen/Pelvis CT 03/28/25 11:45 IMPRESSION: 1. Sigmoid diverticulosis with 6.0 x 5.4 x 3.2 cm gas and feculent material containing cavity consistent with a contained bowel perforation which communicates to the sigmoid colon through a 1.8 x 1.3 cm defect in the wall of the colon. 2. Nonobstructing left nephrolithiasis. 3. Mild cardiomegaly. No acute cardiopulmonary disease. Abdomen X-Ray 03/28/25 23:27 IMPRESSION: Nasogastric tube in good position and ready for immediate use. Chest X-Ray 03/29/25 09:37 IMPRESSION: 1. Right upper extremity central venous PICC with distal tip at the caudal superior vena cava. 2. No acute cardiopulmonary disease. 3. Left nephrolithiasis. Head CT 03/29/25 09:51 IMPRESSION: 1. No acute intracranial process. 2. Age-related changes including mild to moderate diffuse volume loss and mild scattered white matter attenuation consistent with chronic small vessel ischemic disease. 3. Chronic left frontal craniotomy. Venous Doppler Study 03/29/25 11:29 IMPRESSION: 1. Thrombosis of the left cephalic and basilic veins. Labs Labs: Laboratory Results - last 24 hr 03/28/25 03/28/25 03/29/25 10:48 16:10 02:47 WBC 9.0 RBC 2.93 L Hgb 7.8 L Hct 26.2 L MCV 89.4 MCH 26.6 MCHC 29.8 L RDW 17.5 H Plt Count 293 MPV 9.7 Immature Gran % (Auto) 0.3 Neut % (Auto) 88.8 H Lymph % (Auto) 7.7 L [place] % (Auto) 3.0 Eos % (Auto) 0.1 Baso % (Auto) 0.1 L Lymph # (Auto) 0.69 L [place] # (Auto) 0.3 Eos # (Auto) 0.0 Baso # (Auto) 0.0 Abs Immat Gran (auto) 0.03 Absolute Neuts (auto) 8.0 H Absolute Nucleated RBC 0.000 Band Neutrophils % 0 Nucleated RBC % 0.0 Platelet Estimate Adequate Hypochromasia 1+ Anisocytosis 1+ Ovalocytes 1+ Schistocytes None seen PT 17.9 H INR 1.4 APTT 34.3 Puncture Site ABG pH ABG pCO2 ABG pO2 ABG PO2/FiO2 Ratio ABG HCO3 ABG O2 Saturation ABG O2 Content ABG Base Excess A-a Gradient Oxyhemoglobin Carboxyhemoglobin Methemoglobin Reduced Hemoglobin Total Hemoglobin O2 Delivery Device O2 Liters/Min Minute Volume Vent Rate Vent Mode FiO2 Tidal Volume PEEP Peak Inspir Pressure Pressure Support Sodium Potassium Chloride Carbon Dioxide Anion Gap BUN Creatinine Estim Creat Clear Calc Estimated GFR Glucose POC Capillary Glucose 136 H Lactic Acid Calcium Total Bilirubin AST ALT Alkaline Phosphatase Ammonia Total Protein Albumin Procalcitonin Urine Color Yellow Urine Appearance Cloudy H Urine pH 5.0 Ur Specific [place] 1.031 Urine Protein 2+ H Urine Glucose (UA) Negative Urine Ketones 1+ H Ur Blood (Man) 3+ H Urine Nitrate Negative Urine Bilirubin Negative Urine Urobilinogen 1.0 Add Ur Microanalysis Reviewed Leukocyte Esterase Rfl Trace H Urine RBC 11-20 H Urine WBC 11-20 H Ur Squamous Epith Cells Few Urine Bacteria None seen Urine Casts 3-5 Urine Yeast (Budding) Present H Nasal MRSA (PCR) Blood Type A Positive Antibody Screen Negative 03/29/25 03/29/25 03/29/25 02:48 04:27 08:27 WBC RBC Hgb Hct MCV MCH MCHC RDW Plt Count MPV Immature Gran % (Auto) Neut % (Auto) Lymph % (Auto) [place] % (Auto) Eos % (Auto) Baso % (Auto) Lymph # (Auto) [place] # (Auto) Eos # (Auto) Baso # (Auto) Abs Immat Gran (auto) Absolute Neuts (auto) Absolute Nucleated RBC Band Neutrophils % Nucleated RBC % Platelet Estimate Hypochromasia Anisocytosis Ovalocytes Schistocytes PT INR APTT Puncture Site Left radial ABG pH 7.495 H ABG pCO2 31.0 L ABG pO2 199.0 H ABG PO2/FiO2 Ratio 3.98 ABG HCO3 23.4 ABG O2 Saturation 99.5 ABG O2 Content 11.2 L ABG Base Excess 0.3 A-a Gradient 122.6 Oxyhemoglobin 98.6 Carboxyhemoglobin 1.3 Methemoglobin 0.0 Reduced Hemoglobin 0.1 Total Hemoglobin 7.7 L* O2 Delivery Device Ventilator O2 Liters/Min Not Reportable Minute Volume Not Reportable Vent Rate 18 Vent Mode Cmv FiO2 50 Tidal Volume 320 PEEP 5 Peak Inspir Pressure Not Reportable Pressure Support Not Reportable Sodium 145 Potassium 3.8 Chloride 112 H Carbon Dioxide 22 Anion Gap 11 BUN 20 H Creatinine 0.80 Estim Creat Clear Calc 52 Estimated GFR > 60 Glucose 141 H POC Capillary Glucose Lactic Acid 1.8 Calcium 8.0 L Total Bilirubin 0.5 AST 80 H ALT 34 Alkaline Phosphatase 147 H Ammonia < 9 L Total Protein 7.0 Albumin 2.8 L Procalcitonin 1.1 Urine Color Urine Appearance Urine pH Ur Specific [place] Urine Protein Urine Glucose (UA) Urine Ketones Ur Blood (Man) Urine Nitrate Urine Bilirubin Urine Urobilinogen Add Ur Microanalysis Leukocyte Esterase Rfl Urine RBC Urine WBC Ur Squamous Epith Cells Urine Bacteria Urine Casts Urine Yeast (Budding) Nasal MRSA (PCR) Blood Type Antibody Screen 03/29/25 11:33 WBC RBC Hgb Hct MCV MCH MCHC RDW Plt Count MPV Immature Gran % (Auto) Neut % (Auto) Lymph % (Auto) [place] % (Auto) Eos % (Auto) Baso % (Auto) Lymph # (Auto) [place] # (Auto) Eos # (Auto) Baso # (Auto) Abs Immat Gran (auto) Absolute Neuts (auto) Absolute Nucleated RBC Band Neutrophils % Nucleated RBC % Platelet Estimate Hypochromasia Anisocytosis Ovalocytes Schistocytes PT INR APTT Puncture Site ABG pH ABG pCO2 ABG pO2 ABG PO2/FiO2 Ratio ABG HCO3 ABG O2 Saturation ABG O2 Content ABG Base Excess A-a Gradient Oxyhemoglobin Carboxyhemoglobin Methemoglobin Reduced Hemoglobin Total Hemoglobin O2 Delivery Device O2 Liters/Min Minute Volume Vent Rate Vent Mode FiO2 Tidal Volume PEEP Peak Inspir Pressure Pressure Support Sodium Potassium Chloride Carbon Dioxide Anion Gap BUN Creatinine Estim Creat Clear Calc Estimated GFR Glucose POC Capillary Glucose Lactic Acid Calcium Total Bilirubin AST ALT Alkaline Phosphatase Ammonia Total Protein Albumin Procalcitonin Urine Color Urine Appearance Urine pH Ur Specific [place] Urine Protein Urine Glucose (UA) Urine Ketones Ur Blood (Man) Urine Nitrate Urine Bilirubin Urine Urobilinogen Add Ur Microanalysis Leukocyte Esterase Rfl Urine RBC Urine WBC Ur Squamous Epith Cells Urine Bacteria Urine Casts Urine Yeast (Budding) Nasal MRSA (PCR) Not detected Blood Type Antibody Screen
[2025-03-30] VITALS (29 sets, daily range): BP systolic 120–159; BP diastolic 59–105; PULSE 89–107; RESP 16–24; TEMP 37.4–38.4; O2SAT 85–100
[2025-03-30] MEDS: ACETAMINOPHEN 325 MG TABLET 650 MG PO (00:34)
[2025-03-30] MEDS: PIPERACILLN/TAZ 3.375GM/NS50ML 3.375 GM/50 ML BAG IVPB ×4 (01:05→18:05)
[2025-03-30 05:13] LABS: Alveolar/Arterial O2 Gradient < 0.0 mmHg; Base Excess ABG 0.1 mEq/l (+/-2.0); Carboxyhemoglobin 1.2 % THb (0-2.0); Fractional Inspired Oxygen 50 %; HCO3 ABG 23.7 mEq/l (22.0-26.0); Oxygen Content ABG 11.4 %vol (16.0-22.0); Oxygen Saturation ABG 99.8 % (95.0-100.0); Oxyhemoglobin 98.5 % THb (90.0-100.0); PCO2 ABG 33.8 mmHg (35.0-45.0); PO2 FiO2 Ratio Arterial Blood > 0.00 %; Reduced Hemoglobin 0.3 %THb (0-5.0); pH ABG 7.464 (7.350-7.450)
[2025-03-30 05:35] LABS: Modified Allen's Test Pass; Site Drawn LEFT RADIAL; Total Hemoglobin 7.5 g/dL (12.0-18.0)
[2025-03-30 05:36] LABS: Arterial Blood Gas PEEP 5 cmH2O; Arterial Blood Gas Tidal Volume 320 ml; Arterial Blood Gas Vent Mode CMV; Arterial Blood Gas Ventilator rate 16 /MIN; Device VENTILATOR
[2025-03-30] MEDS: LACTATED RINGERS 1,000 ML 100 ML IV CONT (05:44)
[2025-03-30] MEDS: CENTRAL LINE FLUSH 10 ML IV PUSH ×3 (05:45→20:39)
[2025-03-30] MEDS: IPRATROPIUM 0.5 MG/ALBUTEROL SULFATE 2.5 MG AMPUL.NEB 3 ML INHALATION (05:49)
[2025-03-30 06:53] LABS: Alanine Aminotransferase 32 U/L (6-35); Albumin Level 2.6 g/dL (3.5-5.1); Alkaline Phosphatase 151 U/L (38-126); Anion Gap 8 mmol/L (4-12); Aspartate Amino Transferase 79 U/L (14-36); Bilirubin,Total 0.5 mg/dL (0.2-1.3); Blood Urea Nitrogen 14 mg/dL (7-17); Carbon Dioxide 23 mmol/L (22-30); Chloride 113 mmol/L (98-107); Estimated CRCL calculation 53 ml/min; Estimated Glomerular Filt Rate > 60; Glucose 110 mg/dL (65-110); Magnesium 1.9 mg/dL (1.6-2.3); Phosphorus 2.9 mg/dL (2.5-4.5); Potassium 3.3 mmol/L (3.4-5.0); Sodium 144 mmol/L (137-145)
[2025-03-30 07:47] LABS: Basophils Percent Auto 0.1 % (0.2-1.2); Eosinophils Absolute Auto 0.1 K/mm3 (0-0.3); Eosinophils Percent Auto 0.8 % (0-4.4); Immature Granulocyte Absolute 0.05 K/mm3 (0.00-0.031); Immature Granulocyte Percent A 0.5 % (0-0.5); Lymphocytes Absolute Auto 1.12 K/mm3 (0.9-3.2); Lymphocytes Percent Auto 11.8 % (18.3-44.2); Mean Corpuscular HGB Conc 29.8 g/dl (32-36); Mean Corpuscular Hemoglobin 26.6 pg (26-34); Mean Corpuscular Volume 89.3 fl (80-100); Mean Platelet Volume 9.6 fl (7.4-10.4); Monocytes Absolute Auto 0.4 K/mm3 (0.1-0.6); Monocytes Percent Auto 4.5 % (2.6-8.5); Neutrophils Absolute Auto 7.8 K/mm3 (1.3-6.7); Neutrophils Percent Auto 82.3 % (45.5-73.1); Platelet Count Result 194 k/mm3 (150-375); Red Blood Count 2.33 M/mm3 (4.2-5.4); Red Cell Distribution Width 17.7 % (11.5-14.5); White Blood Count 9.5 K/mm3 (4.5-10.0)
[2025-03-30 07:52] LABS: Hematocrit 20.8 % (37.0-47.0); Hemoglobin 6.2 g/dL (12.0-15.0)
[2025-03-30] MEDS: ENOXAPARIN 40 MG/0.4 ML SYRINGE SUB-Q (08:07)
[2025-03-30] MEDS: KCL 40 MEQ/WATER 100 ML 100 ML 25 ML IVPB (08:07)
[2025-03-30] MEDS: PANTOPRAZOLE SODIUM IV 40 MG VIAL IV PUSH (08:08)
[2025-03-30] MEDS: MINERAL OIL/WHITE PETROLATUM OINTMENT 1 APPLIC EACH EYE (08:08)
[2025-03-30] MEDS: levETIRAcetam 1500MG/NACL100ML 1,500 MG/100 ML BAG 400 MG IVPB ×2 (08:08→20:17)
--- NOTE | 2025-03-30 08:08 | WPDINTPN ---
Progress Note: A&P Assessment and Plan (1) Acute respiratory failure: Code(s): J96.00 - Acute respiratory failure, unspecified whether with hypoxia or hypercapnia Status: Acute Assessment and Plan: Acute Respiratory failure secondary to altered mental status and inability to protect airway Patient now intubated and on mechanical ventilation. Continue full mechanical ventilation support to prevent hypoxemia/hypercarbia and end organ damage. ABG reviewed and decrease rate to 14 and tidal volume to 300 Chest x-ray reviewed Low tidal volume ventilation strategy to prevent volutrauma Bronchodilators Sedation holiday and weaning trial today (2) Sepsis: Code(s): A41.9 - Sepsis, unspecified organism Status: Acute Assessment and Plan: Sepsis secondary to bowel perforation, peritonitis, UTI Blood and urine cultures have been ordered and pending Continue Zosyn Patient received 2 L fluid bolus. Hold further IV fluid (3) Altered mental status: Code(s): R41.82 - Altered mental status, unspecified Status: Acute Assessment and Plan: Patient presented with altered mental status. Patient also has history of seizure disorder and may have had seizure and be postictal. Other possibilities are sepsis as she had a perforated bowel and UTI Overnight rapid response could be secondary to deterioration of mental status from Dilaudid. MRI brain done on 03/27 did not showed any acute CVA and showed 1. Normal aging brain with minimal periventricular calcific white matter T2 hyperintensity consistent with chronic small vessel ischemic disease. No acute intracranial process EEG as below Recent TSH was normal Normal ammonia Sedation held and now patient is following commands and moving all 4 extremities Neurology following Avoid sedatives and monitor. (4) C2 cervical fracture: Code(s): S12.100A - Unspecified displaced fracture of second cervical vertebra, initial encounter for closed fracture Status: Inactive Assessment and Plan: Patient had a C2 fracture from fall few weeks ago. Patient was evaluated by Neurosurgery. MRI C-spine done on this hospitalization showed following She currently in a soft C-collar. Impression: Fractured the base of the odontoid process possibly extending from the C2 vertebral body detailed above, most compatible with acute fracture. There is minimal marrow edema and suggestion of possible early cortication along the fracture margins. Alignment appears unchanged as compared to prior CT scans. Anterior fusion of C5 and C6. Moderate to advanced degenerative spondylosis otherwise, as detailed above, with multilevel neural foraminal narrowing. (5) Dysphagia: Code(s): R13.10 - Dysphagia, unspecified Status: Acute Assessment and Plan: Patient failed her swallow study. Currently npo Will start tube feeding once cleared by General surgery (6) UTI (urinary tract infection): Code(s): N39.0 - Urinary tract infection, site not specified Status: Resolved Assessment and Plan: See above (7) Seizure disorder: Code(s): G40.909 - Epilepsy, unspecified, not intractable, without status epilepticus Status: Acute Assessment and Plan: History of seizure disorder. Continue Keppra. Currently sedated with Versed 03/28 EEG. IMPRESSION This is an abnormal EEG due to following 1. Nearly continuous focal slow wave activity intermixed with sharp wave transients were seen over left frontal area. This may relate to having previous surgery in this area. Focal slowing is suggestive of underlying structural lesion. Sharp transients are considered nonspecific focal interictal abnormality. Clinical and radiographic correlation are recommended. 2. Mild his background slowing suggestive of generalized encephalopathy (8) Perforation bowel: Code(s): K63.1 - Perforation of intestine (nontraumatic) Status: Acute Assessment and Plan: 03/28 Status post 1. Exploratory laparotomy 2. Sigmoid colon resection with end descending colostomy 3. Ileal resection with [id number] ileal anastomosis NPO Management per General surgery Antibiotics as above (9) Anemia: Code(s): D64.9 - Anemia, unspecified Status: Acute Assessment and Plan: Hemoglobin 6.2 this morning likely secondary to surgery and hemodilution. No objective evidence of bleeding at this time. Stool is brown Transfuse 1 unit PRBC and repeat hemoglobin. Check coags Continue DVT prophylaxis Lovenox at this time. Continue PPI (10) Superficial vein thrombosis: Code(s): I82.890 - Acute embolism and thrombosis of other specified veins Status: Acute Assessment and Plan: Venous Doppler shows thrombus in the left cephalic and basilic veins and left upper extremity. Continue DVT prophylaxis with Lovenox. Plan DVT prophylaxis - SCD, Lovenox Stress ulcer prophylaxis - PPI Nutrition - NPO Code Status - Full Code Total Critical Care Time - 30 minutes Due to a high probability of clinically significant, life threatening deterioration, the patient required my highest level of preparedness to intervene emergently and I personally spent this critical care time directly and personally managing the patient. This critical care time included obtaining a history; examining the patient; pulse oximetry; ordering and review of studies; arranging urgent treatment with development of a management plan; evaluation of patient's response to treatment; frequent reassessment; and discussions with other providers. It was exclusive of separately billable procedures and treating other patients and teaching time. Please see Assessment and Plan section and the rest of the note for further information on patient assessment and treatment Subjective Date/time seen: 03/30/25 Overnight events reviewed. Afebrile overnight but Afebrile this morning Continues to be on mechanical ventilation 40% FiO2 Continues to be on vasopressors Continues to be sedated with low dose versed other Vitals acceptable Increased stool output from Colostomy Review of Systems Review of Systems: ROS unobtainable: Yes unobtainable due to endotracheal tube, unobtainable due to medical condition and unobtainable due to mental status Exam Narrative: General: Pt is sedated, intubated and on mechanical ventilation Lungs/Chest: Trachea central Coarse BS B/L, No crackles or wheezing. Cardiac: RRR. Normal S1 S2. No murmurs Circulation: Pedal pulses are intact and symmetrical. Abdomen: Decreased bowel sounds. She has a colostomy in the left lower quadrant with brown stool output, mild diffuse tenderness as she grimaces on exam. Extremities: No clubbing, cyanosis or edema. Warm : Post in place Neurologic: She nodes are head appropriately on calling her name and follows commands with all 4 extremities but appears to be very weak. She spontaneously moves all 4 extremities. She resists pupillary exam by clenching her eyes. PEERL Objective Data Vital Signs Vital Signs: Vital Signs - 24 hr 03/29/25 08:15 03/29/25 10:00 03/29/25 10:00 Temperature Pulse Rate 82 89 89 Respiratory Rate 16 16 Blood Pressure Pulse Oximetry 100 Oxygen Delivery Mechanical Ventilation Fraction of Inspired Oxygen 40 03/29/25 10:00 03/29/25 10:00 03/29/25 10:43 Temperature 36.7 C Pulse Rate 87 82 95 Respiratory Rate 16 Blood Pressure 123/66 Pulse Oximetry 100 100 Oxygen Delivery Mechanical Ventilation Fraction of Inspired Oxygen 40 03/29/25 12:00 03/29/25 12:00 03/29/25 12:00 Temperature 37.1 C Pulse Rate 81 87 87 Respiratory Rate 16 16 16 Blood Pressure 87/56 L Pulse Oximetry 93 Oxygen Delivery Fraction of Inspired Oxygen 03/29/25 12:00 03/29/25 12:00 03/29/25 12:00 Temperature Pulse Rate 86 Respiratory Rate Blood Pressure Pulse Oximetry Oxygen Delivery Mechanical Ventilation Fraction of Inspired Oxygen 40 40 03/29/25 13:47 03/29/25 14:00 03/29/25 14:00 Temperature 37.3 C Pulse Rate 93 92 92 Respiratory Rate 16 Blood Pressure 126/66 Pulse Oximetry 100 99 Oxygen Delivery Mechanical Ventilation Fraction of Inspired Oxygen 40 03/29/25 14:00 03/29/25 14:00 03/29/25 16:00 Temperature Pulse Rate 92 92 97 Respiratory Rate 16 16 17 Blood Pressure Pulse Oximetry Oxygen Delivery Fraction of Inspired Oxygen 03/29/25 16:00 03/29/25 16:00 03/29/25 16:00 Temperature Pulse Rate 97 97 Respiratory Rate 17 Blood Pressure Pulse Oximetry Oxygen Delivery Mechanical Ventilation Fraction of Inspired Oxygen 40 03/29/25 16:00 03/29/25 16:00 03/29/25 16:44 Temperature 37.8 C H Pulse Rate 97 98 Respiratory Rate 17 Blood Pressure 133/78 Pulse Oximetry 99 100 Oxygen Delivery Mechanical Ventilation Fraction of Inspired Oxygen 40 40 03/29/25 18:00 03/29/25 18:00 03/29/25 18:00 Temperature 38.0 C H Pulse Rate 98 98 98 Respiratory Rate 16 16 Blood Pressure 138/83 Pulse Oximetry 99 Oxygen Delivery Fraction of Inspired Oxygen 03/29/25 18:00 03/29/25 20:00 03/29/25 20:00 Temperature 38.2 C H Pulse Rate 98 98 Respiratory Rate 16 16 Blood Pressure 140/78 Pulse Oximetry 97 Oxygen Delivery Fraction of Inspired Oxygen 40 03/29/25 20:00 03/29/25 20:00 03/29/25 20:00 Temperature Pulse Rate 98 94 Respiratory Rate 16 Blood Pressure Pulse Oximetry 96 Oxygen Delivery Mechanical Ventilation Fraction of Inspired Oxygen 40 03/29/25 20:00 03/29/25 20:51 03/29/25 22:00 Temperature Pulse Rate 98 103 H 98 Respiratory Rate 16 16 Blood Pressure Pulse Oximetry 97 Oxygen Delivery Mechanical Ventilation Fraction of Inspired Oxygen 40 03/29/25 22:00 03/29/25 22:00 03/29/25 22:00 Temperature 38.3 C H Pulse Rate 98 98 98 Respiratory Rate 16 16 Blood Pressure 133/80 Pulse Oximetry 96 Oxygen Delivery Fraction of Inspired Oxygen 03/29/25 23:24 03/30/25 00:00 03/30/25 00:00 Temperature 38.4 C H Pulse Rate 105 H 105 H Respiratory Rate 17 Blood Pressure 122/68 Pulse Oximetry 97 97 Oxygen Delivery Mechanical Ventilation Fraction of Inspired Oxygen 40 40 03/30/25 00:00 03/30/25 00:00 03/30/25 00:00 Temperature Pulse Rate 107 H 105 H Respiratory Rate 17 Blood Pressure Pulse Oximetry 97 Oxygen Delivery Mechanical Ventilation Fraction of Inspired Oxygen 40 03/30/25 00:00 03/30/25 00:34 03/30/25 01:30 Temperature 38.4 C H 38.2 C H Pulse Rate 105 H Respiratory Rate 17 Blood Pressure Pulse Oximetry Oxygen Delivery Fraction of Inspired Oxygen 03/30/25 02:00 03/30/25 02:00 03/30/25 02:00 Temperature 38.0 C H Pulse Rate 99 99 99 Respiratory Rate 16 16 Blood Pressure 120/59 L Pulse Oximetry 98 Oxygen Delivery Fraction of Inspired Oxygen 03/30/25 02:00 03/30/25 02:40 03/30/25 04:00 Temperature 37.4 C Pulse Rate 99 98 89 Respiratory Rate 16 16 Blood Pressure 121/76 Pulse Oximetry 96 93 Oxygen Delivery Mechanical Ventilation Fraction of Inspired Oxygen 40 03/30/25 04:00 03/30/25 04:00 03/30/25 04:00 Temperature Pulse Rate 89 91 Respiratory Rate 16 Blood Pressure Pulse Oximetry Oxygen Delivery Fraction of Inspired Oxygen 40 03/30/25 04:00 03/30/25 04:00 03/30/25 04:45 Temperature Pulse Rate 89 98 Respiratory Rate 16 Blood Pressure Pulse Oximetry 98 85 L Oxygen Delivery Mechanical Ventilation Mechanical Ventilation Fraction of Inspired Oxygen 40 50 03/30/25 05:15 03/30/25 05:49 03/30/25 05:55 Temperature Pulse Rate 98 89 92 Respiratory Rate 19 19 Blood Pressure Pulse Oximetry 100 Oxygen Delivery Mechanical Ventilation Fraction of Inspired Oxygen 40 03/30/25 06:00 03/30/25 06:00 03/30/25 06:00 Temperature 37.5 C Pulse Rate 94 94 94 Respiratory Rate 17 17 Blood Pressure 140/82 Pulse Oximetry 100 Oxygen Delivery Fraction of Inspired Oxygen 03/30/25 06:00 Temperature Pulse Rate 94 Respiratory Rate 17 Blood Pressure Pulse Oximetry Oxygen Delivery Fraction of Inspired Oxygen Intake/Output Intake/Output: Intake & Output 03/27/25 03/28/25 03/29/25 03/30/25 23:59 23:59 23:59 23:59 Intake Total 920 1439 4062.8 1339.3 Output Total 975 960 470 430 Balance -55 479 3592.8 909.3 Meds/Results Medications: Active Medications Generic Name Dose Route Start Last Admin Trade Name Freq PRN Reason Stop Dose Admin Acetaminophen 650 mg 03/26/25 14:08 03/30/25 00:34 Acetaminophen 325 Mg Tablet PO 650 mg Q4H PRN Administration Mild Pain (1-3) or Fever Albuterol/Ipratropium 3 ml 03/30/25 04:29 03/30/25 05:49 Ipratropium 0.5 Mg/Albuterol Sulfate 2.5 Mg Ampul.Neb 3 Ml INHALATION 3 ml Q6HRT PRN Administration Wheezing Enoxaparin Sodium 40 mg 03/29/25 09:00 03/29/25 09:45 Enoxaparin 40 Mg/0.4 Ml Syringe SUB-Q 40 mg DAILY JAYDEN Administration Levetiracetam 1,500 mg in 100 mls @ 400 mls/hr 03/26/25 21:00 03/29/25 21:30 Keppra Iv IVPB Infused Q12HR JAYDEN Infusion Piperacillin/Tazobactam/Dextrose 3.375 gm in 50 mls @ 100 mls/hr 03/28/25 13:00 03/30/25 07:57 Zosyn 3.375 Gm/Ns 50 Ml IVPB Infused Q6H JAYDEN Infusion Fentanyl Citrate 2,500 mcg in 250 mls @ 0 mls/hr 03/29/25 02:55 03/30/25 06:00 Fentanyl 2,500 Mcg/Ns 250 Ml IV CONT 0 mcg/hr .Q0M JAYDEN 0 mls/hr Titration Protocol 0 MCG/HR Midazolam HCl 100 mg in 100 mls @ 2 mls/hr 03/29/25 02:55 03/30/25 06:00 Versed 100 Mg/Ns 100 Ml IV CONT 2 mg/hr .Q50H JAYDEN 2 mls/hr Titration Protocol 2 MG/HR Potassium Chloride 100 mls @ 25 mls/hr 03/30/25 07:44 Kcl 40 Meq/Water 100 Ml IVPB 03/30/25 11:43 ONCE ONE Sodium Chloride 250 mls @ 30 mls/hr 03/30/25 07:52 Normal Saline Iv IV CONT 03/30/25 16:11 .Q8H20M STA Multi-Ingred Cream/Lotion/Oil/Oint 1 applic 03/29/25 09:00 03/29/25 21:12 Mineral Oil/White Petrolatum Ointment EACH EYE 1 applic Q12HR JAYDEN Administration Naloxone HCl 0.1 mg 03/29/25 00:02 Naloxone Hcl 0.4 Mg/Ml Vial IV PUSH Q2M PRN Opiate Reversal Ondansetron HCl 4 mg 03/26/25 14:08 Ondansetron Inj 4 Mg/2 Ml Vial IV PUSH Q6H PRN Nausea And Vomiting Pantoprazole Sodium 40 mg 03/29/25 09:00 03/29/25 09:45 Pantoprazole Sodium Iv 40 Mg Vial IV PUSH 40 mg DAILY JAYDEN Administration Sodium Chloride 6 ml 03/29/25 05:00 03/30/25 07:57 Sodium Chlor 3% 15 Ml Neb (Respiratory Therapy) INHALATION 03/31/25 05:01 Not Given DAILY@0500 JAYDEN Sodium Chloride 10 ml 03/29/25 14:00 03/30/25 05:45 Central Line Flush IV PUSH 10 ml Q8HR JAYDEN Administration Sodium Chloride 10 ml 03/29/25 09:36 Central Line Flush IV PUSH PRN PRN with TPN bag changes Sodium Chloride 20 ml 03/29/25 09:36 Central Line Flush IV PUSH PRN PRN after blood draws Radiology Results: ITS Impressions Modified Barium Swallow 03/27/25 15:26 IMPRESSION: Oropharyngeal dysphagia with intermittent laryngeal penetration with indeterminate/possible minimal aspiration. Please correlate with speech pathologist findings and specific feeding recommendations. Brain MRI 03/27/25 15:28 IMPRESSION: 1. Normal aging brain with minimal periventricular calcific white matter T2 hyperintensity consistent with chronic small vessel ischemic disease. No acute intracranial process. Cervical Spine MRI 03/28/25 08:39 Impression: Fractured the base of the odontoid process possibly extending from the C2 vertebral body detailed above, most compatible with acute fracture. There is minimal marrow edema and suggestion of possible early cortication along the fracture margins. Alignment appears unchanged as compared to prior CT scans. Anterior fusion of C5 and C6. Moderate to advanced degenerative spondylosis otherwise, as detailed above, with multilevel neural foraminal narrowing. Chest/Abdomen/Pelvis CT 03/28/25 11:45 IMPRESSION: 1. Sigmoid diverticulosis with 6.0 x 5.4 x 3.2 cm gas and feculent material containing cavity consistent with a contained bowel perforation which communicates to the sigmoid colon through a 1.8 x 1.3 cm defect in the wall of the colon. 2. Nonobstructing left nephrolithiasis. 3. Mild cardiomegaly. No acute cardiopulmonary disease. Abdomen X-Ray 03/28/25 23:27 IMPRESSION: Nasogastric tube in good position and ready for immediate use. Head CT 03/29/25 09:51 IMPRESSION: 1. No acute intracranial process. 2. Age-related changes including mild to moderate diffuse volume loss and mild scattered white matter attenuation consistent with chronic small vessel ischemic disease. 3. Chronic left frontal craniotomy. Venous Doppler Study 03/29/25 11:29 IMPRESSION: 1. Thrombosis of the left cephalic and basilic veins. Chest X-Ray 03/30/25 06:38 IMPRESSION: Small left-sided pleural effusion. Supportive lines and tubes in good position. Labs Labs: Laboratory Results - last 24 hr 03/28/25 03/29/25 03/29/25 11:55 08:27 11:33 WBC RBC Hgb Hct MCV MCH MCHC RDW Plt Count MPV Immature Gran % (Auto) Neut % (Auto) Lymph % (Auto) [place] % (Auto) Eos % (Auto) Baso % (Auto) Lymph # (Auto) [place] # (Auto) Eos # (Auto) Baso # (Auto) Abs Immat Gran (auto) Absolute Neuts (auto) Absolute Nucleated RBC Nucleated RBC % Puncture Site ABG pH ABG pCO2 ABG pO2 ABG PO2/FiO2 Ratio ABG HCO3 ABG O2 Saturation ABG O2 Content ABG Base Excess A-a Gradient Oxyhemoglobin Carboxyhemoglobin Methemoglobin Reduced Hemoglobin Total Hemoglobin O2 Delivery Device O2 Liters/Min Minute Volume Vent Rate Vent Mode FiO2 Tidal Volume PEEP Peak Inspir Pressure Pressure Support Sodium Potassium Chloride Carbon Dioxide Anion Gap BUN Creatinine Estim Creat Clear Calc Estimated GFR Glucose Calcium Phosphorus Magnesium Total Bilirubin AST ALT Alkaline Phosphatase Ammonia < 9 L Total Protein Albumin Cancelled CSF Albumin (MS) Cancelled CSF IgG Oligo Bnd (MS) Cancelled CSF IgG (MS) Cancelled Serum IgG (MS) Cancelled CSF IgG Index (MS) Cancelled CSF IgG Synth Rate MS Cancelled CSF Myelin Bsc Prot MS Cancelled Nasal MRSA (PCR) Not detected 03/30/25 03/30/25 03/30/25 04:49 06:32 07:42 WBC 9.5 RBC 2.33 L Hgb 6.2 L* Hct 20.8 L* MCV 89.3 MCH 26.6 MCHC 29.8 L RDW 17.7 H Plt Count 194 MPV 9.6 Immature Gran % (Auto) 0.5 Neut % (Auto) 82.3 H Lymph % (Auto) 11.8 L [place] % (Auto) 4.5 Eos % (Auto) 0.8 Baso % (Auto) 0.1 L Lymph # (Auto) 1.12 [place] # (Auto) 0.4 Eos # (Auto) 0.1 Baso # (Auto) 0.0 Abs Immat Gran (auto) 0.05 H Absolute Neuts (auto) 7.8 H Absolute Nucleated RBC 0.000 Nucleated RBC % 0.0 Puncture Site Left radial ABG pH 7.464 H ABG pCO2 33.8 L ABG pO2 369.0 H ABG PO2/FiO2 Ratio > 0.00 ABG HCO3 23.7 ABG O2 Saturation 99.8 ABG O2 Content 11.4 L ABG Base Excess 0.1 A-a Gradient < 0.0 Oxyhemoglobin 98.5 Carboxyhemoglobin 1.2 Methemoglobin 0.0 Reduced Hemoglobin 0.3 Total Hemoglobin 7.5 L* O2 Delivery Device Ventilator O2 Liters/Min Not Reportable Minute Volume Not Reportable Vent Rate 16 Vent Mode Cmv FiO2 50 Tidal Volume 320 PEEP 5 Peak Inspir Pressure Not Reportable Pressure Support Not Reportable Sodium 144 Potassium 3.3 L Chloride 113 H Carbon Dioxide 23 Anion Gap 8 BUN 14 D Creatinine 0.79 Estim Creat Clear Calc 53 Estimated GFR > 60 Glucose 110 Calcium 8.0 L Phosphorus 2.9 Magnesium 1.9 Total Bilirubin 0.5 AST 79 H ALT 32 Alkaline Phosphatase 151 H Ammonia Total Protein 7.0 Albumin 2.6 L CSF Albumin (MS) CSF IgG Oligo Bnd (MS) CSF IgG (MS) Serum IgG (MS) CSF IgG Index (MS) CSF IgG Synth Rate MS CSF Myelin Bsc Prot MS Nasal MRSA (PCR) Quality VTE Prophylaxis VTE prophylaxis: mechanical ordered and pharmacologic ordered
[2025-03-30 08:11] LABS: Anisocytosis 1+; Hypochromasia 1+; Ovalocytes 1+; Platelet Estimate Adequate (Adequate); Schistocytes None Seen
[2025-03-30 09:01] LABS: INR 1.4; Prothrombin Time 17.5 Seconds (11.1-14.7)
[2025-03-30 09:02] LABS: Partial Thromboplastin Time 38.4 Seconds (22.3-36.8)
[2025-03-30 09:10] LABS: Alveolar/Arterial O2 Gradient 86.7 mmHg; Base Excess ABG -1.8 mEq/l (+/-2.0); Fractional Inspired Oxygen 40 %; HCO3 ABG 21.4 mEq/l (22.0-26.0); Oxygen Content ABG 9.8 %vol (16.0-22.0); Oxygen Saturation ABG 99.2 % (95.0-100.0); Oxyhemoglobin 98.4 % THb (90.0-100.0); PCO2 ABG 29.3 mmHg (35.0-45.0); PO2 ABG 164.8 mmHg (80.0-100.0); PO2 FiO2 Ratio Arterial Blood 4.12 %; pH ABG 7.481 (7.350-7.450)
[2025-03-30 09:15] LABS: Arterial Blood Gas PEEP 5 cmH2O; Arterial Blood Gas Vent Mode SPONTANEOUS; Device VENTILATOR; Modified Allen's Test Pass; Site Drawn LEFT RADIAL; Total Hemoglobin 6.8 g/dL (12.0-18.0)
[2025-03-30 09:16] LABS: Arterial Blood Gas Pressure Support 5 cmH2O
[2025-03-30] MEDS: SODIUM CHLORIDE 0.9% IV 250 ML 30 ML IV CONT (09:25)
--- NOTE | 2025-03-30 12:48 | PCSTNOTE ---
Speech treatment attempted this date around ~11:30am. Pt unable to participate due to severity of medical status. Pt moved to ICU-3 following surgery and is now NPO with intubation removed around ~9am as reported by RN. Pt was able to move her head slightly to indicate a no when asked to participate in speech therapy treatment session this date. A manual communication board was recommended following medical status improvement. Thank you.
--- NOTE | 2025-03-30 15:28 | P.PNIM_ITS ---
Progress Note: A&P Assessment and Plan (1) Acute respiratory failure: Code(s): J96.00 - Acute respiratory failure, unspecified whether with hypoxia or hypercapnia Status: Acute Assessment and Plan: Acute Respiratory failure secondary to altered mental status and inability to protect airway Patient now intubated and on mechanical ventilation. Continue full mechanical ventilation support to prevent hypoxemia/hypercarbia and end organ damage. ABG reviewed and decrease rate to 14 and tidal volume to 300 Chest x-ray reviewed Low tidal volume ventilation strategy to prevent volutrauma Bronchodilators Sedation holiday and weaning trial today (2) Sepsis: Code(s): A41.9 - Sepsis, unspecified organism Status: Acute Assessment and Plan: Sepsis secondary to bowel perforation, peritonitis, UTI Blood and urine cultures have been ordered and pending Continue Zosyn Patient received 2 L fluid bolus. Hold further IV fluid (3) Altered mental status: Code(s): R41.82 - Altered mental status, unspecified Status: Acute Assessment and Plan: Patient presented with altered mental status. Patient also has history of seizure disorder and may have had seizure and be postictal. Other possibilities are sepsis as she had a perforated bowel and UTI Overnight rapid response could be secondary to deterioration of mental status from Dilaudid. MRI brain done on 03/27 did not showed any acute CVA and showed 1. Normal aging brain with minimal periventricular calcific white matter T2 hyperintensity consistent with chronic small vessel ischemic disease. No acute intracranial process EEG as below Recent TSH was normal Normal ammonia Sedation held and now patient is following commands and moving all 4 extremities Neurology following Avoid sedatives and monitor. (4) C2 cervical fracture: Code(s): S12.100A - Unspecified displaced fracture of second cervical vertebra, initial encounter for closed fracture Status: Inactive Assessment and Plan: Patient had a C2 fracture from fall few weeks ago. Patient was evaluated by Neurosurgery. MRI C-spine done on this hospitalization showed following She currently in a soft C-collar. Impression: Fractured the base of the odontoid process possibly extending from the C2 vertebral body detailed above, most compatible with acute fracture. There is minimal marrow edema and suggestion of possible early cortication along the fracture margins. Alignment appears unchanged as compared to prior CT scans. Anterior fusion of C5 and C6. Moderate to advanced degenerative spondylosis otherwise, as detailed above, with multilevel neural foraminal narrowing. (5) Dysphagia: Code(s): R13.10 - Dysphagia, unspecified Status: Acute Assessment and Plan: Patient failed her swallow study. Currently npo Will start tube feeding once cleared by General surgery (6) UTI (urinary tract infection): Code(s): N39.0 - Urinary tract infection, site not specified Status: Resolved Assessment and Plan: See above (7) Seizure disorder: Code(s): G40.909 - Epilepsy, unspecified, not intractable, without status epilepticus Status: Acute Assessment and Plan: History of seizure disorder. Continue Keppra. Currently sedated with Versed 03/28 EEG. IMPRESSION This is an abnormal EEG due to following 1. Nearly continuous focal slow wave activity intermixed with sharp wave transients were seen over left frontal area. This may relate to having previous surgery in this area. Focal slowing is suggestive of underlying structural lesi on. Sharp transients are considered nonspecific focal interictal abnormality. Clinical and radiographic correlation are recommended. 2. Mild his background slowing suggestive of generalized encephalopathy (8) Perforation bowel: Code(s): K63.1 - Perforation of intestine (nontraumatic) Status: Acute Assessment and Plan: 03/28 Status post 1. Exploratory laparotomy 2. Sigmoid colon resection with end descending colostomy 3. Ileal resection with [id number] ileal anastomosis NPO Management per General surgery Antibiotics as above (9) Anemia: Code(s): D64.9 - Anemia, unspecified Status: Acute Assessment and Plan: Hemoglobin 6.2 this morning likely secondary to surgery and hemodilution. No objective evidence of bleeding at this time. Stool is brown Transfuse 1 unit PRBC and repeat hemoglobin. Check coags Continue DVT prophylaxis Lovenox at this time. Continue PPI (10) Superficial vein thrombosis: Code(s): I82.890 - Acute embolism and thrombosis of other specified veins Status: Acute Assessment and Plan: Venous Doppler shows thrombus in the left cephalic and basilic veins and left upper extremity. Continue DVT prophylaxis with Lovenox. Plan patient with c/o abdominal pain had CT scan of the abdomen and pelvic which showed sigmoid diverticulosis with 6.0 x 5.4 x 3.2 cm gas and feculent material containing cavity consistent with a contained bowel perforation which communicates to the sigmoid colon through a 1.8 x 1.3 cm defect in the wall of the colon. patient was seen by surgery service and was taken to the OR on 03/29 and had surgical repair had resection of her intestine and colostomy was placed and the surgery was uneventful, however later in the evening RR was called as patient was unresponsive and was intubated to protect patient airway. today patient was extubated and ostomy is functioning now, remain stable off vent in the ICU and will monitor and follow the patient. DVT prophylaxis - SCD, Lovenox Stress ulcer prophylaxis - PPI Nutrition - NPO Code Status - Full Code Subjective Date/time seen: 03/30/25 15:28 Interval history: Patient is a 74 year old female admitted for Further evaluation of altered mental status with new onset aphasia dysphagia. 03/28/2025: Patient more alert following commands and no longer aphasic and passed swallow evaluation. Patient however has new fevers peaked at 103.2 with no current known source, considering her symptoms on admission have some concerns for Meningitis. Patient did have some rebound tenderness to ABD palpation no N/V, No BM for 4 days. patient with c/o abdominal pain had CT scan of the abdomen and pelvic which showed sigmoid diverticulosis with 6.0 x 5.4 x 3.2 cm gas and feculent material containing cavity consistent with a contained bowel perforation which communicates to the sigmoid colon through a 1.8 x 1.3 cm defect in the wall of the colon. patient was seen by surgery service and was taken to the OR on 03/29 and had surgical repair had resection of her intestine and colostomy was placed and the surgery was uneventful, however later in the evening RR was called as patient was unresponsive and was intubated to protect patient airway. today patient was extubated and ostomy is functioning now, remain stable off vent in the ICU and will monitor and follow the patient. Review of Systems Review of Systems: ROS unobtainable: Yes unobtainable due to mental status Exam Narrative: Patient is comfortable, NAD HEENT: clear LUNGS:CTA HEART: RR S1S2 ABD: BS+, Soft and nontender Lower extremities: no edema SKIN: nonjaundiced Neuro: grossly intact Objective Data Vital Signs Vital Signs: Vital Signs - 24 hr 03/29/25 16:00 03/29/25 16:00 03/29/25 16:00 Temperature Pulse Rate 97 97 Respiratory Rate 17 17 Blood Pressure Pulse Oximetry Oxygen Delivery Mechanical Ventilation Oxygen Flow Rate Fraction of Inspired Oxygen 40 03/29/25 16:00 03/29/25 16:00 03/29/25 16:00 Temperature 37.8 C H Pulse Rate 97 97 Respiratory Rate 17 Blood Pressure 133/78 Pulse Oximetry 99 Oxygen Delivery Oxygen Flow Rate Fraction of Inspired Oxygen 40 03/29/25 16:44 03/29/25 18:00 03/29/25 18:00 Temperature 38.0 C H Pulse Rate 98 98 98 Respiratory Rate 16 Blood Pressure 138/83 Pulse Oximetry 100 99 Oxygen Delivery Mechanical Ventilation Oxygen Flow Rate Fraction of Inspired Oxygen 40 03/29/25 18:00 03/29/25 18:00 03/29/25 20:00 Temperature 38.2 C H Pulse Rate 98 98 98 Respiratory Rate 16 16 16 Blood Pressure 140/78 Pulse Oximetry 97 Oxygen Delivery Oxygen Flow Rate Fraction of Inspired Oxygen 03/29/25 20:00 03/29/25 20:00 03/29/25 20:00 Temperature Pulse Rate 98 94 Respiratory Rate 16 Blood Pressure Pulse Oximetry Oxygen Delivery Oxygen Flow Rate Fraction of Inspired Oxygen 40 03/29/25 20:00 03/29/25 20:00 03/29/25 20:51 Temperature Pulse Rate 98 103 H Respiratory Rate 16 Blood Pressure Pulse Oximetry 96 97 Oxygen Delivery Mechanical Ventilation Mechanical Ventilation Oxygen Flow Rate Fraction of Inspired Oxygen 40 40 03/29/25 22:00 03/29/25 22:00 03/29/25 22:00 Temperature Pulse Rate 98 98 98 Respiratory Rate 16 16 Blood Pressure Pulse Oximetry Oxygen Delivery Oxygen Flow Rate Fraction of Inspired Oxygen 03/29/25 22:00 03/29/25 23:24 03/30/25 00:00 Temperature 38.3 C H Pulse Rate 98 105 H Respiratory Rate 16 Blood Pressure 133/80 Pulse Oximetry 96 97 Oxygen Delivery Mechanical Ventilation Oxygen Flow Rate Fraction of Inspired Oxygen 40 40 03/30/25 00:00 03/30/25 00:00 03/30/25 00:00 Temperature 38.4 C H Pulse Rate 105 H 107 H Respiratory Rate 17 Blood Pressure 122/68 Pulse Oximetry 97 97 Oxygen Delivery Mechanical Ventilation Oxygen Flow Rate Fraction of Inspired Oxygen 40 03/30/25 00:00 03/30/25 00:00 03/30/25 00:34 Temperature 38.4 C H Pulse Rate 105 H 105 H Respiratory Rate 17 17 Blood Pressure Pulse Oximetry Oxygen Delivery Oxygen Flow Rate Fraction of Inspired Oxygen 03/30/25 01:30 03/30/25 02:00 03/30/25 02:00 Temperature 38.2 C H Pulse Rate 99 99 Respiratory Rate 16 Blood Pressure Pulse Oximetry Oxygen Delivery Oxygen Flow Rate Fraction of Inspired Oxygen 03/30/25 02:00 03/30/25 02:00 03/30/25 02:40 Temperature 38.0 C H Pulse Rate 99 99 98 Respiratory Rate 16 16 Blood Pressure 120/59 L Pulse Oximetry 98 96 Oxygen Delivery Mechanical Ventilation Oxygen Flow Rate Fraction of Inspired Oxygen 40 03/30/25 04:00 03/30/25 04:00 03/30/25 04:00 Temperature 37.4 C Pulse Rate 89 89 Respiratory Rate 16 16 Blood Pressure 121/76 Pulse Oximetry 93 Oxygen Delivery Oxygen Flow Rate Fraction of Inspired Oxygen 40 03/30/25 04:00 03/30/25 04:00 03/30/25 04:00 Temperature Pulse Rate 91 89 Respiratory Rate 16 Blood Pressure Pulse Oximetry 98 Oxygen Delivery Mechanical Ventilation Oxygen Flow Rate Fraction of Inspired Oxygen 40 03/30/25 04:45 03/30/25 05:15 03/30/25 05:49 Temperature Pulse Rate 98 98 89 Respiratory Rate 19 Blood Pressure Pulse Oximetry 85 L 100 Oxygen Delivery Mechanical Ventilation Mechanical Ventilation Oxygen Flow Rate Fraction of Inspired Oxygen 50 40 03/30/25 05:55 03/30/25 06:00 03/30/25 06:00 Temperature 37.5 C Pulse Rate 92 94 94 Respiratory Rate 19 17 Blood Pressure 140/82 Pulse Oximetry 100 Oxygen Delivery Oxygen Flow Rate Fraction of Inspired Oxygen 03/30/25 06:00 03/30/25 06:00 03/30/25 08:00 Temperature Pulse Rate 94 94 Respiratory Rate 17 17 Blood Pressure Pulse Oximetry 100 Oxygen Delivery Mechanical Ventilation Oxygen Flow Rate Fraction of Inspired Oxygen 40 03/30/25 08:00 03/30/25 08:00 03/30/25 08:00 Temperature Pulse Rate 102 H 101 H Respiratory Rate 22 H Blood Pressure Pulse Oximetry Oxygen Delivery Oxygen Flow Rate Fraction of Inspired Oxygen 40 03/30/25 08:00 03/30/25 08:08 03/30/25 09:24 Temperature 37.6 C H Pulse Rate 102 H 102 H Respiratory Rate 21 H Blood Pressure 153/84 H Pulse Oximetry 100 100 100 Oxygen Delivery Mechanical Ventilation Nasal Cannula Oxygen Flow Rate 2 Fraction of Inspired Oxygen 40 03/30/25 09:26 03/30/25 09:42 03/30/25 09:43 Temperature 37.7 C H 37.7 C H Pulse Rate 107 H 106 H 103 H Respiratory Rate 22 H 23 H 22 H Blood Pressure 145/83 H 157/102 H Pulse Oximetry 100 100 Oxygen Delivery Oxygen Flow Rate Fraction of Inspired Oxygen 03/30/25 09:44 03/30/25 10:00 03/30/25 10:00 Temperature 37.7 C H Pulse Rate 103 H 106 H 106 H Respiratory Rate 22 H 24 H Blood Pressure 149/105 H Pulse Oximetry 100 Oxygen Delivery Oxygen Flow Rate Fraction of Inspired Oxygen 03/30/25 10:42 03/30/25 11:08 03/30/25 12:00 Temperature 37.7 C H 37.9 C H Pulse Rate 104 H 105 H Respiratory Rate 24 H 21 H Blood Pressure 159/97 H 159/99 H Pulse Oximetry 100 100 100 Oxygen Delivery Nasal Cannula Oxygen Flow Rate 2 Fraction of Inspired Oxygen 03/30/25 12:00 03/30/25 12:00 03/30/25 14:00 Temperature 38.0 C H Pulse Rate 105 H 102 H 100 Respiratory Rate 21 H Blood Pressure 153/98 H Pulse Oximetry 100 Oxygen Delivery Oxygen Flow Rate Fraction of Inspired Oxygen 03/30/25 14:00 Temperature 38.1 C H Pulse Rate 100 Respiratory Rate 22 H Blood Pressure 155/100 H Pulse Oximetry 100 Oxygen Delivery Oxygen Flow Rate Fraction of Inspired Oxygen Intake/Output Intake/Output: Intake & Output 03/27/25 03/28/25 03/29/25 03/30/25 23:59 23:59 23:59 23:59 Intake Total 920 1439 4062.8 1967.8 Output Total 975 960 470 430 Balance -55 479 3592.8 1537.8 Meds/Results Medications: Active Medications Generic Name Dose Route Start Last Admin Trade Name Freq PRN Reason Stop Dose Admin Acetaminophen 650 mg 03/26/25 14:08 03/30/25 00:34 Acetaminophen 325 Mg Tablet PO 650 mg Q4H PRN Administration Mild Pain (1-3) or Fever Albuterol/Ipratropium 3 ml 03/30/25 04:29 03/30/25 05:49 Ipratropium 0.5 Mg/Albuterol Sulfate 2.5 Mg Ampul.Neb 3 Ml INHALATION 3 ml Q6HRT PRN Administration Wheezing Enoxaparin Sodium 40 mg 03/29/25 09:00 03/30/25 08:07 Enoxaparin 40 Mg/0.4 Ml Syringe SUB-Q 40 mg DAILY JAYDEN Administration Levetiracetam 1,500 mg in 100 mls @ 400 mls/hr 03/26/25 21:00 03/30/25 09:25 Keppra Iv IVPB Infused Q12HR JAYDEN Infusion Piperacillin/Tazobactam/Dextrose 3.375 gm in 50 mls @ 100 mls/hr 03/28/25 13:00 03/30/25 13:39 Zosyn 3.375 Gm/Ns 50 Ml IVPB Infused Q6H JAYDEN Infusion Sodium Chloride 250 mls @ 30 mls/hr 03/30/25 07:52 03/30/25 10:14 Normal Saline Iv IV CONT 03/30/25 16:11 Infused .Q8H20M STA Infusion Naloxone HCl 0.1 mg 03/29/25 00:02 Naloxone Hcl 0.4 Mg/Ml Vial IV PUSH Q2M PRN Opiate Reversal Ondansetron HCl 4 mg 03/26/25 14:08 Ondansetron Inj 4 Mg/2 Ml Vial IV PUSH Q6H PRN Nausea And Vomiting Pantoprazole Sodium 40 mg 03/29/25 09:00 03/30/25 08:08 Pantoprazole Sodium Iv 40 Mg Vial IV PUSH 40 mg DAILY JAYDEN Administration Sodium Chloride 6 ml 03/29/25 05:00 03/30/25 07:57 Sodium Chlor 3% 15 Ml Neb (Respiratory Therapy) INHALATION 03/31/25 05:01 Not Given DAILY@0500 JAYDEN Sodium Chloride 10 ml 03/29/25 14:00 03/30/25 12:57 Central Line Flush IV PUSH 10 ml Q8HR JAYDEN Administration Sodium Chloride 10 ml 03/29/25 09:36 Central Line Flush IV PUSH PRN PRN with TPN bag changes Sodium Chloride 20 ml 03/29/25 09:36 Central Line Flush IV PUSH PRN PRN after blood draws Radiology Results: ITS Impressions Modified Barium Swallow 03/27/25 15:26 IMPRESSION: Oropharyngeal dysphagia with intermittent laryngeal penetration with indeterminate/possible minimal aspiration. Please correlate with speech pathologist findings and specific feeding recommendations. Brain MRI 03/27/25 15:28 IMPRESSION: 1. Normal aging brain with minimal periventricular calcific white matter T2 hyperintensity consistent with chronic small vessel ischemic disease. No acute intracranial process. Cervical Spine MRI 03/28/25 08:39 Impression: Fractured the base of the odontoid process possibly extending from the C2 vertebral body detailed above, most compatible with acute fracture. There is minimal marrow edema and suggestion of possible early cortication along the fracture margins. Alignment appears unchanged as compared to prior CT scans. Anterior fusion of C5 and C6. Moderate to advanced degenerative spondylosis otherwise, as detailed above, with multilevel neural foraminal narrowing. Chest/Abdomen/Pelvis CT 03/28/25 11:45 IMPRESSION: 1. Sigmoid diverticulosis with 6.0 x 5.4 x 3.2 cm gas and feculent material containing cavity consistent with a contained bowel perforation which communicates to the sigmoid colon through a 1.8 x 1.3 cm defect in the wall of the colon. 2. Nonobstructing left nephrolithiasis. 3. Mild cardiomegaly. No acute cardiopulmonary disease. Abdomen X-Ray 03/28/25 23:27 IMPRESSION: Nasogastric tube in good position and ready for immediate use. Head CT 03/29/25 09:51 IMPRESSION: 1. No acute intracranial process. 2. Age-related changes including mild to moderate diffuse volume loss and mild scattered white matter attenuation consistent with chronic small vessel ischemic disease. 3. Chronic left frontal craniotomy. Venous Doppler Study 03/29/25 11:29 IMPRESSION: 1. Thrombosis of the left cephalic and basilic veins. Chest X-Ray 03/30/25 06:38 IMPRESSION: Small left-sided pleural effusion. Supportive lines and tubes in good position. Labs Labs: Laboratory Results - last 24 hr 03/28/25 03/28/25 03/30/25 11:55 16:10 04:49 WBC RBC Hgb Hct MCV MCH MCHC RDW Plt Count MPV Immature Gran % (Auto) Neut % (Auto) Lymph % (Auto) [place] % (Auto) Eos % (Auto) Baso % (Auto) Lymph # (Auto) [place] # (Auto) Eos # (Auto) Baso # (Auto) Abs Immat Gran (auto) Absolute Neuts (auto) Absolute Nucleated RBC Band Neutrophils % Nucleated RBC % Platelet Estimate Hypochromasia Anisocytosis Ovalocytes Schistocytes PT INR APTT Puncture Site Left radial ABG pH 7.464 H ABG pCO2 33.8 L ABG pO2 369.0 H ABG PO2/FiO2 Ratio > 0.00 ABG HCO3 23.7 ABG O2 Saturation 99.8 ABG O2 Content 11.4 L ABG Base Excess 0.1 A-a Gradient < 0.0 Oxyhemoglobin 98.5 Carboxyhemoglobin 1.2 Methemoglobin 0.0 Reduced Hemoglobin 0.3 Total Hemoglobin 7.5 L* O2 Delivery Device Ventilator O2 Liters/Min Not Reportable Minute Volume Not Reportable Vent Rate 16 Vent Mode Cmv FiO2 50 Tidal Volume 320 PEEP 5 Peak Inspir Pressure Not Reportable Pressure Support Not Reportable Sodium Potassium Chloride Carbon Dioxide Anion Gap BUN Creatinine Estim Creat Clear Calc Estimated GFR Glucose Calcium Phosphorus Magnesium Total Bilirubin AST ALT Alkaline Phosphatase Total Protein Albumin Cancelled CSF Albumin (MS) Cancelled CSF IgG Oligo Bnd (MS) Cancelled CSF IgG (MS) Cancelled Serum IgG (MS) Cancelled CSF IgG Index (MS) Cancelled CSF IgG Synth Rate MS Cancelled CSF Myelin Bsc Prot MS Cancelled Blood Type A Positive Antibody Screen Negative Crossmatch See Detail 03/30/25 03/30/25 03/30/25 06:32 07:42 08:34 WBC 9.5 RBC 2.33 L Hgb 6.2 L* Hct 20.8 L* MCV 89.3 MCH 26.6 MCHC 29.8 L RDW 17.7 H Plt Count 194 MPV 9.6 Immature Gran % (Auto) 0.5 Neut % (Auto) 82.3 H Lymph % (Auto) 11.8 L Benton % (Auto) 4.5 Eos % (Auto) 0.8 Baso % (Auto) 0.1 L Lymph # (Auto) 1.12 Benton # (Auto) 0.4 Eos # (Auto) 0.1 Baso # (Auto) 0.0 Abs Immat Gran (auto) 0.05 H Absolute Neuts (auto) 7.8 H Absolute Nucleated RBC 0.000 Band Neutrophils % Not Reportable Nucleated RBC % 0.0 Platelet Estimate Adequate Hypochromasia 1+ Anisocytosis 1+ Ovalocytes 1+ Schistocytes None seen PT 17.5 H INR 1.4 APTT 38.4 H Puncture Site ABG pH ABG pCO2 ABG pO2 ABG PO2/FiO2 Ratio ABG HCO3 ABG O2 Saturation ABG O2 Content ABG Base Excess A-a Gradient Oxyhemoglobin Carboxyhemoglobin Methemoglobin Reduced Hemoglobin Total Hemoglobin O2 Delivery Device O2 Liters/Min Minute Volume Vent Rate Vent Mode FiO2 Tidal Volume PEEP Peak Inspir Pressure Pressure Support Sodium 144 Potassium 3.3 L Chloride 113 H Carbon Dioxide 23 Anion Gap 8 BUN 14 D Creatinine 0.79 Estim Creat Clear Calc 53 Estimated GFR > 60 Glucose 110 Calcium 8.0 L Phosphorus 2.9 Magnesium 1.9 Total Bilirubin 0.5 AST 79 H ALT 32 Alkaline Phosphatase 151 H Total Protein 7.0 Albumin 2.6 L CSF Albumin (MS) CSF IgG Oligo Bnd (MS) CSF IgG (MS) Serum IgG (MS) CSF IgG Index (MS) CSF IgG Synth Rate MS CSF Myelin Bsc Prot MS Blood Type Antibody Screen Crossmatch 03/30/25 09:02 WBC RBC Hgb Hct MCV MCH MCHC RDW Plt Count MPV Immature Gran % (Auto) Neut % (Auto) Lymph % (Auto) [place] % (Auto) Eos % (Auto) Baso % (Auto) Lymph # (Auto) [place] # (Auto) Eos # (Auto) Baso # (Auto) Abs Immat Gran (auto) Absolute Neuts (auto) Absolute Nucleated RBC Band Neutrophils % Nucleated RBC % Platelet Estimate Hypochromasia Anisocytosis Ovalocytes Schistocytes PT INR APTT Puncture Site Left radial ABG pH 7.481 H ABG pCO2 29.3 L ABG pO2 164.8 H ABG PO2/FiO2 Ratio 4.12 ABG HCO3 21.4 L ABG O2 Saturation 99.2 ABG O2 Content 9.8 L ABG Base Excess -1.8 A-a Gradient 86.7 Oxyhemoglobin 98.4 Carboxyhemoglobin Methemoglobin Reduced Hemoglobin Total Hemoglobin 6.8 L* O2 Delivery Device Ventilator O2 Liters/Min Not Reportable Minute Volume Not Reportable Vent Rate Not Reportable Vent Mode Spontaneous FiO2 40 Tidal Volume Not Reportable PEEP 5 Peak Inspir Pressure Not Reportable Pressure Support 5 Sodium Potassium Chloride Carbon Dioxide Anion Gap BUN Creatinine Estim Creat Clear Calc Estimated GFR Glucose Calcium Phosphorus Magnesium Total Bilirubin AST ALT Alkaline Phosphatase Total Protein Albumin CSF Albumin (MS) CSF IgG Oligo Bnd (MS) CSF IgG (MS) Serum IgG (MS) CSF IgG Index (MS) CSF IgG Synth Rate MS CSF Myelin Bsc Prot MS Blood Type Antibody Screen Crossmatch Quality VTE Prophylaxis VTE prophylaxis: mechanical ordered and pharmacologic ordered
--- NOTE | 2025-03-30 15:41 | P.PNGS_ITS ---
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 Ostomy functioning with stool in bag. Patient denies any abdominal pain at this time. Exam GI: Inspection: incision (Intact and dry) and other (ostomy pink, stool in bag) GI Palp: Yes Soft to palpation, No Tenderness to palpation present (GI) and No Guarding due to palpation present (GI) Auscultation: Hypoactive bowel sounds present Objective Data Vital Signs Vital Signs: Vital Signs - 24 hr 03/29/25 16:00 03/29/25 16:00 03/29/25 16:00 Temperature Pulse Rate 97 97 Respiratory Rate 17 17 Blood Pressure Pulse Oximetry Oxygen Delivery Mechanical Ventilation Oxygen Flow Rate Fraction of Inspired Oxygen 40 03/29/25 16:00 03/29/25 16:00 03/29/25 16:00 Temperature 100.1 F H Pulse Rate 97 97 Respiratory Rate 17 Blood Pressure 133/78 Pulse Oximetry 99 Oxygen Delivery Oxygen Flow Rate Fraction of Inspired Oxygen 40 03/29/25 16:44 03/29/25 18:00 03/29/25 18:00 Temperature 100.4 F H Pulse Rate 98 98 98 Respiratory Rate 16 Blood Pressure 138/83 Pulse Oximetry 100 99 Oxygen Delivery Mechanical Ventilation Oxygen Flow Rate Fraction of Inspired Oxygen 40 03/29/25 18:00 03/29/25 18:00 03/29/25 20:00 Temperature 100.7 F H Pulse Rate 98 98 98 Respiratory Rate 16 16 16 Blood Pressure 140/78 Pulse Oximetry 97 Oxygen Delivery Oxygen Flow Rate Fraction of Inspired Oxygen 03/29/25 20:00 03/29/25 20:00 03/29/25 20:00 Temperature Pulse Rate 98 94 Respiratory Rate 16 Blood Pressure Pulse Oximetry Oxygen Delivery Oxygen Flow Rate Fraction of Inspired Oxygen 40 03/29/25 20:00 03/29/25 20:00 03/29/25 20:51 Temperature Pulse Rate 98 103 H Respiratory Rate 16 Blood Pressure Pulse Oximetry 96 97 Oxygen Delivery Mechanical Ventilation Mechanical Ventilation Oxygen Flow Rate Fraction of Inspired Oxygen 40 40 03/29/25 22:00 03/29/25 22:00 03/29/25 22:00 Temperature Pulse Rate 98 98 98 Respiratory Rate 16 16 Blood Pressure Pulse Oximetry Oxygen Delivery Oxygen Flow Rate Fraction of Inspired Oxygen 03/29/25 22:00 03/29/25 23:24 03/30/25 00:00 Temperature 100.9 F H Pulse Rate 98 105 H Respiratory Rate 16 Blood Pressure 133/80 Pulse Oximetry 96 97 Oxygen Delivery Mechanical Ventilation Oxygen Flow Rate Fraction of Inspired Oxygen 40 40 03/30/25 00:00 03/30/25 00:00 03/30/25 00:00 Temperature 101.1 F H Pulse Rate 105 H 107 H Respiratory Rate 17 Blood Pressure 122/68 Pulse Oximetry 97 97 Oxygen Delivery Mechanical Ventilation Oxygen Flow Rate Fraction of Inspired Oxygen 40 03/30/25 00:00 03/30/25 00:00 03/30/25 00:34 Temperature 101.1 F H Pulse Rate 105 H 105 H Respiratory Rate 17 17 Blood Pressure Pulse Oximetry Oxygen Delivery Oxygen Flow Rate Fraction of Inspired Oxygen 03/30/25 01:30 03/30/25 02:00 03/30/25 02:00 Temperature 100.8 F H Pulse Rate 99 99 Respiratory Rate 16 Blood Pressure Pulse Oximetry Oxygen Delivery Oxygen Flow Rate Fraction of Inspired Oxygen 03/30/25 02:00 03/30/25 02:00 03/30/25 02:40 Temperature 100.4 F H Pulse Rate 99 99 98 Respiratory Rate 16 16 Blood Pressure 120/59 L Pulse Oximetry 98 96 Oxygen Delivery Mechanical Ventilation Oxygen Flow Rate Fraction of Inspired Oxygen 40 03/30/25 04:00 03/30/25 04:00 03/30/25 04:00 Temperature 99.3 F Pulse Rate 89 89 Respiratory Rate 16 16 Blood Pressure 121/76 Pulse Oximetry 93 Oxygen Delivery Oxygen Flow Rate Fraction of Inspired Oxygen 40 03/30/25 04:00 03/30/25 04:00 03/30/25 04:00 Temperature Pulse Rate 91 89 Respiratory Rate 16 Blood Pressure Pulse Oximetry 98 Oxygen Delivery Mechanical Ventilation Oxygen Flow Rate Fraction of Inspired Oxygen 40 03/30/25 04:45 03/30/25 05:15 03/30/25 05:49 Temperature Pulse Rate 98 98 89 Respiratory Rate 19 Blood Pressure Pulse Oximetry 85 L 100 Oxygen Delivery Mechanical Ventilation Mechanical Ventilation Oxygen Flow Rate Fraction of Inspired Oxygen 50 40 03/30/25 05:55 03/30/25 06:00 03/30/25 06:00 Temperature 99.5 F Pulse Rate 92 94 94 Respiratory Rate 19 17 Blood Pressure 140/82 Pulse Oximetry 100 Oxygen Delivery Oxygen Flow Rate Fraction of Inspired Oxygen 03/30/25 06:00 03/30/25 06:00 03/30/25 08:00 Temperature Pulse Rate 94 94 Respiratory Rate 17 17 Blood Pressure Pulse Oximetry 100 Oxygen Delivery Mechanical Ventilation Oxygen Flow Rate Fraction of Inspired Oxygen 40 03/30/25 08:00 03/30/25 08:00 03/30/25 08:00 Temperature Pulse Rate 102 H 101 H Respiratory Rate 22 H Blood Pressure Pulse Oximetry Oxygen Delivery Oxygen Flow Rate Fraction of Inspired Oxygen 40 03/30/25 08:00 03/30/25 08:08 03/30/25 09:24 Temperature 99.7 F H Pulse Rate 102 H 102 H Respiratory Rate 21 H Blood Pressure 153/84 H Pulse Oximetry 100 100 100 Oxygen Delivery Mechanical Ventilation Nasal Cannula Oxygen Flow Rate 2 Fraction of Inspired Oxygen 40 03/30/25 09:26 03/30/25 09:42 03/30/25 09:43 Temperature 99.9 F H 99.9 F H Pulse Rate 107 H 106 H 103 H Respiratory Rate 22 H 23 H 22 H Blood Pressure 145/83 H 157/102 H Pulse Oximetry 100 100 Oxygen Delivery Oxygen Flow Rate Fraction of Inspired Oxygen 03/30/25 09:44 03/30/25 10:00 03/30/25 10:00 Temperature 100 F H Pulse Rate 103 H 106 H 106 H Respiratory Rate 22 H 24 H Blood Pressure 149/105 H Pulse Oximetry 100 Oxygen Delivery Oxygen Flow Rate Fraction of Inspired Oxygen 03/30/25 10:42 03/30/25 11:08 03/30/25 12:00 Temperature 100 F H 100.2 F H Pulse Rate 104 H 105 H Respiratory Rate 24 H 21 H Blood Pressure 159/97 H 159/99 H Pulse Oximetry 100 100 100 Oxygen Delivery Nasal Cannula Oxygen Flow Rate 2 Fraction of Inspired Oxygen 03/30/25 12:00 03/30/25 12:00 03/30/25 14:00 Temperature 100.4 F H Pulse Rate 105 H 102 H 100 Respiratory Rate 21 H Blood Pressure 153/98 H Pulse Oximetry 100 Oxygen Delivery Oxygen Flow Rate Fraction of Inspired Oxygen 03/30/25 14:00 Temperature 100.5 F H Pulse Rate 100 Respiratory Rate 22 H Blood Pressure 155/100 H Pulse Oximetry 100 Oxygen Delivery Oxygen Flow Rate Fraction of Inspired Oxygen Intake/Output Intake/Output: Intake & Output 03/27/25 03/28/25 03/29/25 03/30/25 23:59 23:59 23:59 23:59 Intake Total 920 1439 4062.8 1967.8 Output Total 975 960 470 430 Balance -55 479 3592.8 1537.8 Meds/Results Medications: Active Medications Generic Name Dose Route Start Last Admin Trade Name Freq PRN Reason Stop Dose Admin Acetaminophen 650 mg 03/26/25 14:08 03/30/25 00:34 Acetaminophen 325 Mg Tablet PO 650 mg Q4H PRN Administration Mild Pain (1-3) or Fever Albuterol/Ipratropium 3 ml 03/30/25 04:29 03/30/25 05:49 Ipratropium 0.5 Mg/Albuterol Sulfate 2.5 Mg Ampul.Neb 3 Ml INHALATION 3 ml Q6HRT PRN Administration Wheezing Enoxaparin Sodium 40 mg 03/29/25 09:00 03/30/25 08:07 Enoxaparin 40 Mg/0.4 Ml Syringe SUB-Q 40 mg DAILY JAYDEN Administration Levetiracetam 1,500 mg in 100 mls @ 400 mls/hr 03/26/25 21:00 03/30/25 09:25 Keppra Iv IVPB Infused Q12HR JAYDEN Infusion Piperacillin/Tazobactam/Dextrose 3.375 gm in 50 mls @ 100 mls/hr 03/28/25 13:00 03/30/25 13:39 Zosyn 3.375 Gm/Ns 50 Ml IVPB Infused Q6H JAYDEN Infusion Sodium Chloride 250 mls @ 30 mls/hr 03/30/25 07:52 03/30/25 10:14 Normal Saline Iv IV CONT 03/30/25 16:11 Infused .Q8H20M STA Infusion Naloxone HCl 0.1 mg 03/29/25 00:02 Naloxone Hcl 0.4 Mg/Ml Vial IV PUSH Q2M PRN Opiate Reversal Ondansetron HCl 4 mg 03/26/25 14:08 Ondansetron Inj 4 Mg/2 Ml Vial IV PUSH Q6H PRN Nausea And Vomiting Pantoprazole Sodium 40 mg 03/29/25 09:00 03/30/25 08:08 Pantoprazole Sodium Iv 40 Mg Vial IV PUSH 40 mg DAILY JAYDEN Administration Sodium Chloride 6 ml 03/29/25 05:00 03/30/25 07:57 Sodium Chlor 3% 15 Ml Neb (Respiratory Therapy) INHALATION 03/31/25 05:01 Not Given DAILY@0500 JAYDEN Sodium Chloride 10 ml 03/29/25 14:00 03/30/25 12:57 Central Line Flush IV PUSH 10 ml Q8HR JAYDEN Administration Sodium Chloride 10 ml 03/29/25 09:36 Central Line Flush IV PUSH PRN PRN with TPN bag changes Sodium Chloride 20 ml 03/29/25 09:36 Central Line Flush IV PUSH PRN PRN after blood draws Radiology Results: ITS Impressions Modified Barium Swallow 03/27/25 15:26 IMPRESSION: Oropharyngeal dysphagia with intermittent laryngeal penetration with indeterminate/possible minimal aspiration. Please correlate with speech pathologist findings and specific feeding recommendations. Brain MRI 03/27/25 15:28 IMPRESSION: 1. Normal aging brain with minimal periventricular calcific white matter T2 hyperintensity consistent with chronic small vessel ischemic disease. No acute intracranial process. Cervical Spine MRI 03/28/25 08:39 Impression: Fractured the base of the odontoid process possibly extending from the C2 vertebral body detailed above, most compatible with acute fracture. There is minimal marrow edema and suggestion of possible early cortication along the fracture margins. Alignment appears unchanged as compared to prior CT scans. Anterior fusion of C5 and C6. Moderate to advanced degenerative spondylosis otherwise, as detailed above, with multilevel neural foraminal narrowing. Chest/Abdomen/Pelvis CT 03/28/25 11:45 IMPRESSION: 1. Sigmoid diverticulosis with 6.0 x 5.4 x 3.2 cm gas and feculent material containing cavity consistent with a contained bowel perforation which communicates to the sigmoid colon through a 1.8 x 1.3 cm defect in the wall of the colon. 2. Nonobstructing left nephrolithiasis. 3. Mild cardiomegaly. No acute cardiopulmonary disease. Abdomen X-Ray 03/28/25 23:27 IMPRESSION: Nasogastric tube in good position and ready for immediate use. Head CT 03/29/25 09:51 IMPRESSION: 1. No acute intracranial process. 2. Age-related changes including mild to moderate diffuse volume loss and mild scattered white matter attenuation consistent with chronic small vessel ischemic disease. 3. Chronic left frontal craniotomy. Venous Doppler Study 03/29/25 11:29 IMPRESSION: 1. Thrombosis of the left cephalic and basilic veins. Chest X-Ray 03/30/25 06:38 IMPRESSION: Small left-sided pleural effusion. Supportive lines and tubes in good position. Labs Labs: Laboratory Results - last 24 hr 03/28/25 03/28/25 03/30/25 11:55 16:10 04:49 WBC RBC Hgb Hct MCV MCH MCHC RDW Plt Count MPV Immature Gran % (Auto) Neut % (Auto) Lymph % (Auto) [place] % (Auto) Eos % (Auto) Baso % (Auto) Lymph # (Auto) [place] # (Auto) Eos # (Auto) Baso # (Auto) Abs Immat Gran (auto) Absolute Neuts (auto) Absolute Nucleated RBC Band Neutrophils % Nucleated RBC % Platelet Estimate Hypochromasia Anisocytosis Ovalocytes Schistocytes PT INR APTT Puncture Site Left radial ABG pH 7.464 H ABG pCO2 33.8 L ABG pO2 369.0 H ABG PO2/FiO2 Ratio > 0.00 ABG HCO3 23.7 ABG O2 Saturation 99.8 ABG O2 Content 11.4 L ABG Base Excess 0.1 A-a Gradient < 0.0 Oxyhemoglobin 98.5 Carboxyhemoglobin 1.2 Methemoglobin 0.0 Reduced Hemoglobin 0.3 Total Hemoglobin 7.5 L* O2 Delivery Device Ventilator O2 Liters/Min Not Reportable Minute Volume Not Reportable Vent Rate 16 Vent Mode Cmv FiO2 50 Tidal Volume 320 PEEP 5 Peak Inspir Pressure Not Reportable Pressure Support Not Reportable Sodium Potassium Chloride Carbon Dioxide Anion Gap BUN Creatinine Estim Creat Clear Calc Estimated GFR Glucose Calcium Phosphorus Magnesium Total Bilirubin AST ALT Alkaline Phosphatase Total Protein Albumin Cancelled CSF Albumin (MS) Cancelled CSF IgG Oligo Bnd (MS) Cancelled CSF IgG (MS) Cancelled Serum IgG (MS) Cancelled CSF IgG Index (MS) Cancelled CSF IgG Synth Rate MS Cancelled CSF Myelin Bsc Prot MS Cancelled Blood Type A Positive Antibody Screen Negative Crossmatch See Detail 03/30/25 03/30/25 03/30/25 06:32 07:42 08:34 WBC 9.5 RBC 2.33 L Hgb 6.2 L* Hct 20.8 L* MCV 89.3 MCH 26.6 MCHC 29.8 L RDW 17.7 H Plt Count 194 MPV 9.6 Immature Gran % (Auto) 0.5 Neut % (Auto) 82.3 H Lymph % (Auto) 11.8 L [place] % (Auto) 4.5 Eos % (Auto) 0.8 Baso % (Auto) 0.1 L Lymph # (Auto) 1.12 [place] # (Auto) 0.4 Eos # (Auto) 0.1 Baso # (Auto) 0.0 Abs Immat Gran (auto) 0.05 H Absolute Neuts (auto) 7.8 H Absolute Nucleated RBC 0.000 Band Neutrophils % Not Reportable Nucleated RBC % 0.0 Platelet Estimate Adequate Hypochromasia 1+ Anisocytosis 1+ Ovalocytes 1+ Schistocytes None seen PT 17.5 H INR 1.4 APTT 38.4 H Puncture Site ABG pH ABG pCO2 ABG pO2 ABG PO2/FiO2 Ratio ABG HCO3 ABG O2 Saturation ABG O2 Content ABG Base Excess A-a Gradient Oxyhemoglobin Carboxyhemoglobin Methemoglobin Reduced Hemoglobin Total Hemoglobin O2 Delivery Device O2 Liters/Min Minute Volume Vent Rate Vent Mode FiO2 Tidal Volume PEEP Peak Inspir Pressure Pressure Support Sodium 144 Potassium 3.3 L Chloride 113 H Carbon Dioxide 23 Anion Gap 8 BUN 14 D Creatinine 0.79 Estim Creat Clear Calc 53 Estimated GFR > 60 Glucose 110 Calcium 8.0 L Phosphorus 2.9 Magnesium 1.9 Total Bilirubin 0.5 AST 79 H ALT 32 Alkaline Phosphatase 151 H Total Protein 7.0 Albumin 2.6 L CSF Albumin (MS) CSF IgG Oligo Bnd (MS) CSF IgG (MS) Serum IgG (MS) CSF IgG Index (MS) CSF IgG Synth Rate MS CSF Myelin Bsc Prot MS Blood Type Antibody Screen Crossmatch 03/30/25 09:02 WBC RBC Hgb Hct MCV MCH MCHC RDW Plt Count MPV Immature Gran % (Auto) Neut % (Auto) Lymph % (Auto) [place] % (Auto) Eos % (Auto) Baso % (Auto) Lymph # (Auto) [place] # (Auto) Eos # (Auto) Baso # (Auto) Abs Immat Gran (auto) Absolute Neuts (auto) Absolute Nucleated RBC Band Neutrophils % Nucleated RBC % Platelet Estimate Hypochromasia Anisocytosis Ovalocytes Schistocytes PT INR APTT Puncture Site Left radial ABG pH 7.481 H ABG pCO2 29.3 L ABG pO2 164.8 H ABG PO2/FiO2 Ratio 4.12 ABG HCO3 21.4 L ABG O2 Saturation 99.2 ABG O2 Content 9.8 L ABG Base Excess -1.8 A-a Gradient 86.7 Oxyhemoglobin 98.4 Carboxyhemoglobin Methemoglobin Reduced Hemoglobin Total Hemoglobin 6.8 L* O2 Delivery Device Ventilator O2 Liters/Min Not Reportable Minute Volume Not Reportable Vent Rate Not Reportable Vent Mode Spontaneous FiO2 40 Tidal Volume Not Reportable PEEP 5 Peak Inspir Pressure Not Reportable Pressure Support 5 Sodium Potassium Chloride Carbon Dioxide Anion Gap BUN Creatinine Estim Creat Clear Calc Estimated GFR Glucose Calcium Phosphorus Magnesium Total Bilirubin AST ALT Alkaline Phosphatase Total Protein Albumin CSF Albumin (MS) CSF IgG Oligo Bnd (MS) CSF IgG (MS) Serum IgG (MS) CSF IgG Index (MS) CSF IgG Synth Rate MS CSF Myelin Bsc Prot MS Blood Type Antibody Screen Crossmatch
[2025-03-30 15:52] LABS: Hematocrit 23.3 % (37.0-47.0); Hemoglobin 7.1 g/dL (12.0-15.0); Mean Corpuscular HGB Conc 30.5 g/dl (32-36); Mean Corpuscular Hemoglobin 26.5 pg (26-34); Mean Corpuscular Volume 86.9 fl (80-100); Mean Platelet Volume 9.4 fl (7.4-10.4); Platelet Count Result 199 k/mm3 (150-375); Red Blood Count 2.68 M/mm3 (4.2-5.4)
[2025-03-31] VITALS (15 sets, daily range): BP systolic 145–174; BP diastolic 76–91; PULSE 90–106; RESP 16–23; TEMP 36.8–37.7; O2SAT 94–100
[2025-03-31] MEDS: PIPERACILLN/TAZ 3.375GM/NS50ML 3.375 GM/50 ML BAG IVPB ×4 (01:43→18:22)
[2025-03-31 05:11] LABS: Basophils Percent Auto 0.2 % (0.2-1.2); Eosinophils Absolute Auto 0.1 K/mm3 (0-0.3); Eosinophils Percent Auto 1.2 % (0-4.4); Hematocrit 23.4 % (37.0-47.0); Hemoglobin 7.2 g/dL (12.0-15.0); Immature Granulocyte Absolute 0.04 K/mm3 (0.00-0.031); Immature Granulocyte Percent A 0.4 % (0-0.5); Lymphocytes Absolute Auto 1.37 K/mm3 (0.9-3.2); Lymphocytes Percent Auto 14.5 % (18.3-44.2); Mean Corpuscular HGB Conc 30.8 g/dl (32-36); Mean Corpuscular Hemoglobin 26.3 pg (26-34); Mean Corpuscular Volume 85.4 fl (80-100); Monocytes Absolute Auto 0.4 K/mm3 (0.1-0.6); Monocytes Percent Auto 4.4 % (2.6-8.5); Neutrophils Absolute Auto 7.5 K/mm3 (1.3-6.7); Neutrophils Percent Auto 79.3 % (45.5-73.1); Platelet Count Result 203 k/mm3 (150-375); Red Blood Count 2.74 M/mm3 (4.2-5.4); White Blood Count 9.5 K/mm3 (4.5-10.0)
[2025-03-31 05:26] LABS: Alanine Aminotransferase 30 U/L (6-35); Albumin Level 2.6 g/dL (3.5-5.1); Alkaline Phosphatase 184 U/L (38-126); Anion Gap 4 mmol/L (4-12); Aspartate Amino Transferase 66 U/L (14-36); Bilirubin,Total 0.5 mg/dL (0.2-1.3); Blood Urea Nitrogen 9 mg/dL (7-17); Carbon Dioxide 27 mmol/L (22-30); Chloride 113 mmol/L (98-107); Estimated CRCL calculation 65 ml/min; Estimated Glomerular Filt Rate > 60; Glucose 141 mg/dL (65-110); Magnesium 1.8 mg/dL (1.6-2.3); Phosphorus 2.1 mg/dL (2.5-4.5); Potassium 3.3 mmol/L (3.4-5.0); Sodium 144 mmol/L (137-145)
[2025-03-31] MEDS: CENTRAL LINE FLUSH 10 ML IV PUSH ×3 (06:43→20:36)
--- NOTE | 2025-03-31 08:38 | WPDINTPN ---
Progress Note: A&P Assessment and Plan (1) Acute respiratory failure: Code(s): J96.00 - Acute respiratory failure, unspecified whether with hypoxia or hypercapnia Status: Acute Assessment and Plan: Acute Respiratory failure secondary to altered mental status and inability to protect airway Patient was intubated and extubated on03/30 Currently on room air Avoid sedatives Incentive spirometry patient can do it Bronchodilators (2) Sepsis: Code(s): A41.9 - Sepsis, unspecified organism Status: Acute Assessment and Plan: Sepsis secondary to bowel perforation, peritonitis, UTI Blood and urine cultures have been ordered and pending Continue Zosyn Patient received 2 L fluid bolus. Hold further IV fluid (3) Altered mental status: Code(s): R41.82 - Altered mental status, unspecified Status: Acute Assessment and Plan: Patient presented with altered mental status. Patient also has history of seizure disorder and may have had seizure and be postictal. Other possibilities are sepsis as she had a perforated bowel and UTI Overnight rapid response could be secondary to deterioration of mental status from Dilaudid. MRI brain done on 03/27 did not showed any acute CVA and showed 1. Normal aging brain with minimal periventricular calcific white matter T2 hyperintensity consistent with chronic small vessel ischemic disease. No acute intracranial process EEG as below Recent TSH was normal Normal ammonia Sedation held and now patient is following commands and moving all 4 extremities Neurology following Avoid sedatives and monitor. (4) C2 cervical fracture: Code(s): S12.100A - Unspecified displaced fracture of second cervical vertebra, initial encounter for closed fracture Status: Inactive Assessment and Plan: Patient had a C2 fracture from fall few weeks ago. Patient was evaluated by Neurosurgery. MRI C-spine done on this hospitalization showed following She currently in a soft C-collar. Impression: Fractured the base of the odontoid process possibly extending from the C2 vertebral body detailed above, most compatible with acute fracture. There is minimal marrow edema and suggestion of possible early cortication along the fracture margins. Alignment appears unchanged as compared to prior CT scans. Anterior fusion of C5 and C6. Moderate to advanced degenerative spondylosis otherwise, as detailed above, with multilevel neural foraminal narrowing. (5) Dysphagia: Code(s): R13.10 - Dysphagia, unspecified Status: Acute Assessment and Plan: Patient failed her swallow study prior to surgery. Currently she is getting tube feeds through NG tube I will discuss with speech pathology today and see patient needs a repeat modified barium swallow or we can start modified diet. (6) UTI (urinary tract infection): Code(s): N39.0 - Urinary tract infection, site not specified Status: Resolved Assessment and Plan: See above (7) Seizure disorder: Code(s): G40.909 - Epilepsy, unspecified, not intractable, without status epilepticus Status: Acute Assessment and Plan: History of seizure disorder. Continue Keppra. Currently sedated with Versed 03/28 EEG. IMPRESSION This is an abnormal EEG due to following 1. Nearly continuous focal slow wave activity intermixed with sharp wave transients were seen over left frontal area. This may relate to having previous surgery in this area. Focal slowing is suggestive of underlying structural lesion. Sharp transients are considered nonspecific focal interictal abnormality. Clinical and radiographic correlation are recommended. 2. Mild his background slowing suggestive of generalized encephalopathy (8) Perforation bowel: Code(s): K63.1 - Perforation of intestine (nontraumatic) Status: Acute Assessment and Plan: 03/28 Status post 1. Exploratory laparotomy 2. Sigmoid colon resection with end descending colostomy 3. Ileal resection with [id number] ileal anastomosis NPO Management per General surgery Antibiotics as above (9) Anemia: Code(s): D64.9 - Anemia, unspecified Status: Acute Assessment and Plan: 03/30 Hemoglobin 6.2 this morning likely secondary to surgery and hemodilution. No objective evidence of bleeding at this time. Stool is brown Transfuse 1 unit PRBC and repeat hemoglobin. Coags if you Continue DVT prophylaxis Lovenox at this time. Continue PPI Hemoglobin stable at this time monitor. (10) Superficial vein thrombosis: Code(s): I82.890 - Acute embolism and thrombosis of other specified veins Status: Acute Assessment and Plan: Venous Doppler shows thrombus in the left cephalic and basilic veins and left upper extremity. Continue DVT prophylaxis with Lovenox. Plan DVT prophylaxis - SCD, Lovenox Stress ulcer prophylaxis - PPI Nutrition -tube feeds Code Status - Full Code Transfer out ICU today Subjective Date/time seen: 03/31/25 Patient was extubated yesterday after a successful weaning trial. Patient is doing well and is on room air. She is on tube feeds via an NG tube at 20 mL/hour. She is more awake and responsive. She nodes are head appropriately to some questions. She does admit she has pain but is unable to tell me exactly the location or nature. Urine output is adequate. Blood pressure is slightly elevated. Sinus rhythm on the monitor. Unable to obtain review of systems. Review of Systems Review of Systems: ROS unobtainable: Yes unobtainable due to medical condition and unobtainable due to mental status Exam Narrative: General: Pt is awake and in no distress she has a soft collar on her neck Lungs/Chest: Trachea central Coarse BS B/L, No crackles or wheezing. Cardiac: RRR. Normal S1 S2. No murmurs Circulation: Pedal pulses are intact and symmetrical. Abdomen: Decreased bowel sounds. She has a colostomy in the left lower quadrant with brown stool output, mild diffuse tenderness as she grimaces on exam. Extremities: No clubbing, cyanosis or edema. Warm : Post in place Neurologic: She nodes are head appropriately on calling her name and follows commands with all 4 extremities but appears to be very weak. She spontaneously moves all 4 extremities. She resists pupillary exam by clenching her eyes. PEERL Objective Data Vital Signs Vital Signs: Vital Signs - 24 hr 03/30/25 09:24 03/30/25 09:26 03/30/25 09:42 Temperature 37.7 C H 37.7 C H Pulse Rate 107 H 106 H Respiratory Rate 22 H 23 H Blood Pressure 145/83 H 157/102 H Pulse Oximetry 100 100 100 Oxygen Delivery Nasal Cannula Oxygen Flow Rate 2 03/30/25 09:43 03/30/25 09:44 03/30/25 10:00 Temperature Pulse Rate 103 H 103 H 106 H Respiratory Rate 22 H 22 H Blood Pressure Pulse Oximetry Oxygen Delivery Oxygen Flow Rate 03/30/25 10:00 03/30/25 10:42 03/30/25 11:08 Temperature 37.7 C H 37.7 C H 37.9 C H Pulse Rate 106 H 104 H 105 H Respiratory Rate 24 H 24 H 21 H Blood Pressure 149/105 H 159/97 H 159/99 H Pulse Oximetry 100 100 100 Oxygen Delivery Oxygen Flow Rate 03/30/25 12:00 03/30/25 12:00 03/30/25 12:00 Temperature 38.0 C H Pulse Rate 105 H 102 H Respiratory Rate 21 H Blood Pressure 153/98 H Pulse Oximetry 100 100 Oxygen Delivery Nasal Cannula Oxygen Flow Rate 2 03/30/25 14:00 03/30/25 14:00 03/30/25 16:00 Temperature 38.1 C H Pulse Rate 100 100 Respiratory Rate 22 H Blood Pressure 155/100 H Pulse Oximetry 100 100 Oxygen Delivery Nasal Cannula Oxygen Flow Rate 2 03/30/25 16:00 03/30/25 16:00 03/30/25 18:00 Temperature 38.1 C H Pulse Rate 100 99 102 H Respiratory Rate 23 H Blood Pressure 151/101 H Pulse Oximetry 100 Oxygen Delivery Oxygen Flow Rate 03/30/25 18:00 03/30/25 20:00 03/30/25 20:00 Temperature 38.0 C H 37.7 C H Pulse Rate 101 H 95 Respiratory Rate 22 H 19 Blood Pressure 158/86 H 155/96 H Pulse Oximetry 98 98 98 Oxygen Delivery Nasal Cannula Oxygen Flow Rate 1 03/30/25 20:00 03/30/25 20:20 03/30/25 21:30 Temperature Pulse Rate 97 98 Respiratory Rate Blood Pressure Pulse Oximetry 99 95 Oxygen Delivery Nasal Cannula Room Air Oxygen Flow Rate 1 03/30/25 22:00 03/30/25 22:00 03/31/25 00:00 Temperature 37.6 C H Pulse Rate 98 98 Respiratory Rate 23 H Blood Pressure 158/73 H Pulse Oximetry 95 94 Oxygen Delivery Room Air Oxygen Flow Rate 03/31/25 00:00 03/31/25 00:00 03/31/25 02:00 Temperature 37.6 C H Pulse Rate 91 91 96 Respiratory Rate 22 H Blood Pressure 165/82 H Pulse Oximetry 94 Oxygen Delivery Oxygen Flow Rate 03/31/25 02:00 03/31/25 04:00 03/31/25 04:00 Temperature 37.7 C H 37.7 C H Pulse Rate 96 95 Respiratory Rate 23 H 21 H Blood Pressure 159/76 H 171/78 H Pulse Oximetry 94 96 96 Oxygen Delivery Room Air Oxygen Flow Rate 03/31/25 04:00 03/31/25 06:00 03/31/25 06:00 Temperature 37.7 C H Pulse Rate 97 91 91 Respiratory Rate 16 Blood Pressure 161/86 H Pulse Oximetry 96 Oxygen Delivery Oxygen Flow Rate 03/31/25 08:00 Temperature 37.7 C H Pulse Rate 92 Respiratory Rate 22 H Blood Pressure 171/83 H Pulse Oximetry 96 Oxygen Delivery Oxygen Flow Rate Intake/Output Intake/Output: Intake & Output 03/28/25 03/29/25 03/30/25 03/31/25 23:59 23:59 23:59 23:59 Intake Total 1439 4062.8 2303.8 374 Output Total 252 606 0879 1125 Balance 479 3592.8 1053.8 -751 Meds/Results Medications: Active Medications Generic Name Dose Route Start Last Admin Trade Name Freq PRN Reason Stop Dose Admin Acetaminophen 650 mg 03/26/25 14:08 03/30/25 00:34 Acetaminophen 325 Mg Tablet PO 650 mg Q4H PRN Administration Mild Pain (1-3) or Fever Hydrocodone Bitart/Acetaminophen 1 tab 03/31/25 07:54 Hydrocodone/Acetaminophen (*Crx) 5-325 Mg Tablet PO Q4H PRN Pain Rated 4-6 Albuterol/Ipratropium 3 ml 03/30/25 04:29 03/30/25 05:49 Ipratropium 0.5 Mg/Albuterol Sulfate 2.5 Mg Ampul.Neb 3 Ml INHALATION 3 ml Q6HRT PRN Administration Wheezing Enoxaparin Sodium 40 mg 03/29/25 09:00 03/30/25 08:07 Enoxaparin 40 Mg/0.4 Ml Syringe SUB-Q 40 mg DAILY JAYDEN Administration Levetiracetam 1,500 mg in 100 mls @ 400 mls/hr 03/26/25 21:00 03/30/25 20:32 Keppra Iv IVPB Infused Q12HR JAYDEN Infusion Piperacillin/Tazobactam/Dextrose 3.375 gm in 50 mls @ 100 mls/hr 03/28/25 13:00 03/31/25 07:14 Zosyn 3.375 Gm/Ns 50 Ml IVPB Infused Q6H JAYDEN Infusion Potassium Phosphate 20 mmol/ 256.6667 mls @ 64.167 mls/hr 03/31/25 09:00 Sodium Chloride IVPB 03/31/25 12:59 ONCE ONE Naloxone HCl 0.1 mg 03/29/25 00:02 Naloxone Hcl 0.4 Mg/Ml Vial IV PUSH Q2M PRN Opiate Reversal Ondansetron HCl 4 mg 03/26/25 14:08 Ondansetron Inj 4 Mg/2 Ml Vial IV PUSH Q6H PRN Nausea And Vomiting Pantoprazole Sodium 40 mg 03/29/25 09:00 03/30/25 08:08 Pantoprazole Sodium Iv 40 Mg Vial IV PUSH 40 mg DAILY JAYDEN Administration Sodium Chloride 10 ml 03/29/25 14:00 03/31/25 06:43 Central Line Flush IV PUSH 10 ml Q8HR JAYDEN Administration Sodium Chloride 10 ml 03/29/25 09:36 Central Line Flush IV PUSH PRN PRN with TPN bag changes Sodium Chloride 20 ml 03/29/25 09:36 Central Line Flush IV PUSH PRN PRN after blood draws Radiology Results: ITS Impressions Modified Barium Swallow 03/27/25 15:26 IMPRESSION: Oropharyngeal dysphagia with intermittent laryngeal penetration with indeterminate/possible minimal aspiration. Please correlate with speech pathologist findings and specific feeding recommendations. Brain MRI 03/27/25 15:28 IMPRESSION: 1. Normal aging brain with minimal periventricular calcific white matter T2 hyperintensity consistent with chronic small vessel ischemic disease. No acute intracranial process. Cervical Spine MRI 03/28/25 08:39 Impression: Fractured the base of the odontoid process possibly extending from the C2 vertebral body detailed above, most compatible with acute fracture. There is minimal marrow edema and suggestion of possible early cortication along the fracture margins. Alignment appears unchanged as compared to prior CT scans. Anterior fusion of C5 and C6. Moderate to advanced degenerative spondylosis otherwise, as detailed above, with multilevel neural foraminal narrowing. Chest/Abdomen/Pelvis CT 03/28/25 11:45 IMPRESSION: 1. Sigmoid diverticulosis with 6.0 x 5.4 x 3.2 cm gas and feculent material containing cavity consistent with a contained bowel perforation which communicates to the sigmoid colon through a 1.8 x 1.3 cm defect in the wall of the colon. 2. Nonobstructing left nephrolithiasis. 3. Mild cardiomegaly. No acute cardiopulmonary disease. Head CT 03/29/25 09:51 IMPRESSION: 1. No acute intracranial process. 2. Age-related changes including mild to moderate diffuse volume loss and mild scattered white matter attenuation consistent with chronic small vessel ischemic disease. 3. Chronic left frontal craniotomy. Venous Doppler Study 03/29/25 11:29 IMPRESSION: 1. Thrombosis of the left cephalic and basilic veins. Chest X-Ray 03/31/25 06:31 IMPRESSION: The lungs are now clear. Supportive lines and tubes in good position. ADDENDUM: 03/31/25 0812 The endotracheal tube, assumed to be superimposed on the orogastric tube is NOT present on the current study. Patient extubated prior to examination. Labs Labs: Laboratory Results - last 24 hr 03/28/25 03/30/25 03/30/25 16:10 08:34 09:02 WBC RBC Hgb Hct MCV MCH MCHC RDW Plt Count MPV Immature Gran % (Auto) Neut % (Auto) Lymph % (Auto) [place] % (Auto) Eos % (Auto) Baso % (Auto) Lymph # (Auto) [place] # (Auto) Eos # (Auto) Baso # (Auto) Abs Immat Gran (auto) Absolute Neuts (auto) Absolute Nucleated RBC Nucleated RBC % PT 17.5 H INR 1.4 APTT 38.4 H Puncture Site Left radial ABG pH 7.481 H ABG pCO2 29.3 L ABG pO2 164.8 H ABG PO2/FiO2 Ratio 4.12 ABG HCO3 21.4 L ABG O2 Saturation 99.2 ABG O2 Content 9.8 L ABG Base Excess -1.8 A-a Gradient 86.7 Oxyhemoglobin 98.4 Total Hemoglobin 6.8 L* O2 Delivery Device Ventilator O2 Liters/Min Not Reportable Minute Volume Not Reportable Vent Rate Not Reportable Vent Mode Spontaneous FiO2 40 Tidal Volume Not Reportable PEEP 5 Peak Inspir Pressure Not Reportable Pressure Support 5 Sodium Potassium Chloride Carbon Dioxide Anion Gap BUN Creatinine Estim Creat Clear Calc Estimated GFR Glucose Calcium Phosphorus Magnesium Total Bilirubin AST ALT Alkaline Phosphatase Total Protein Albumin Blood Type A Positive Antibody Screen Negative Crossmatch See Detail 03/30/25 03/31/25 15:48 05:06 WBC 10.0 9.5 RBC 2.68 L 2.74 L Hgb 7.1 L 7.2 L Hct 23.3 L 23.4 L MCV 86.9 85.4 MCH 26.5 26.3 MCHC 30.5 L 30.8 L RDW 18.0 H 18.0 H Plt Count 199 203 MPV 9.4 10.0 Immature Gran % (Auto) 0.4 Neut % (Auto) 79.3 H Lymph % (Auto) 14.5 L [place] % (Auto) 4.4 Eos % (Auto) 1.2 Baso % (Auto) 0.2 Lymph # (Auto) 1.37 [place] # (Auto) 0.4 Eos # (Auto) 0.1 Baso # (Auto) 0.0 Abs Immat Gran (auto) 0.04 H Absolute Neuts (auto) 7.5 H Absolute Nucleated RBC 0.000 Nucleated RBC % 0.0 PT INR APTT Puncture Site ABG pH ABG pCO2 ABG pO2 ABG PO2/FiO2 Ratio ABG HCO3 ABG O2 Saturation ABG O2 Content ABG Base Excess A-a Gradient Oxyhemoglobin Total Hemoglobin O2 Delivery Device O2 Liters/Min Minute Volume Vent Rate Vent Mode FiO2 Tidal Volume PEEP Peak Inspir Pressure Pressure Support Sodium 144 Potassium 3.3 L Chloride 113 H Carbon Dioxide 27 Anion Gap 4 BUN 9 D Creatinine 0.63 L Estim Creat Clear Calc 65 Estimated GFR > 60 Glucose 141 H Calcium 8.0 L Phosphorus 2.1 L Magnesium 1.8 Total Bilirubin 0.5 AST 66 H ALT 30 Alkaline Phosphatase 184 H Total Protein 7.0 Albumin 2.6 L Blood Type Antibody Screen Crossmatch Quality VTE Prophylaxis VTE prophylaxis: mechanical ordered and pharmacologic ordered
[2025-03-31] MEDS: POTASSIUM PHOS,M-BASIC-D-BASIC 20 MMOL in SODIUM CHLORIDE 0.9% IV 250 ML 64.17 MMOL IVPB (09:36)
[2025-03-31] MEDS: POTASSIUM BICARBONATE 25 MEQ TABEF 50 MEQ FEED TUBE (09:36)
[2025-03-31] MEDS: ENOXAPARIN 40 MG/0.4 ML SYRINGE SUB-Q (09:37)
[2025-03-31] MEDS: PANTOPRAZOLE SODIUM IV 40 MG VIAL IV PUSH (09:37)
[2025-03-31] MEDS: levETIRAcetam 1500MG/NACL100ML 1,500 MG/100 ML BAG 400 MG IVPB ×2 (09:38→20:28)
[2025-03-31] MEDS: ACETAMINOPHEN 325 MG TABLET 650 MG PO (09:39)
--- NOTE | 2025-03-31 10:28 | P.PNGS_ITS ---
Progress Note: A&P Assessment and Plan (1) Perforation bowel: Code(s): K63.1 - Perforation of intestine (nontraumatic) Status: Acute Assessment and Plan: * Continue IV Zosyn. Downgraded to IMU status. * Continue tube feedings until able to swallow. Nursing is going to reach out to speech therapy to re-evaluate her swallow. 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 Overall curve is trending down. Subjective Subjective Date/Time Seen: 03/31/25 10:28 Post Op day: 3 (Exploratory laparotomy, sigmoid colon resection, ileal resection) Interval history: Patient is alert. She tries to answer some questions, but her voice is soft and other times she does not even attempt to answer questions. She can tell me her name, but does not answer any other orientation questions. She does report abdominal pain near her incision. Per nursing, she is tolerating tube feeding at goal without without any issues. She is downgraded to IMU status today. Exam Const: General: comfortable and no acute distress GI: Inspection: non-distended and incision (Dry and noah intact, no air) GI Palp: Yes Soft to palpation, Yes Tenderness to palpation present (GI) (Appropriate incisional tenderness), No Guarding due to palpation present (GI) and No Rebound tenderness present Auscultation: normal bowel sounds Other: Colostomy with soft brown stool in bag, stoma pink and viable Objective Data Vital Signs Vital Signs: Vital Signs - 24 hr 03/30/25 10:42 03/30/25 11:08 03/30/25 12:00 Temperature 100 F H 100.2 F H Pulse Rate 104 H 105 H Respiratory Rate 24 H 21 H Blood Pressure 159/97 H 159/99 H Pulse Oximetry 100 100 100 Oxygen Delivery Nasal Cannula Oxygen Flow Rate 2 03/30/25 12:00 03/30/25 12:00 03/30/25 14:00 Temperature 100.4 F H Pulse Rate 105 H 102 H 100 Respiratory Rate 21 H Blood Pressure 153/98 H Pulse Oximetry 100 Oxygen Delivery Oxygen Flow Rate 03/30/25 14:00 03/30/25 16:00 03/30/25 16:00 Temperature 100.5 F H 100.5 F H Pulse Rate 100 100 Respiratory Rate 22 H 23 H Blood Pressure 155/100 H 151/101 H Pulse Oximetry 100 100 100 Oxygen Delivery Nasal Cannula Oxygen Flow Rate 2 03/30/25 16:00 03/30/25 18:00 03/30/25 18:00 Temperature 100.4 F H Pulse Rate 99 102 H 101 H Respiratory Rate 22 H Blood Pressure 158/86 H Pulse Oximetry 98 Oxygen Delivery Oxygen Flow Rate 03/30/25 20:00 03/30/25 20:00 03/30/25 20:00 Temperature 99.9 F H Pulse Rate 95 97 Respiratory Rate 19 Blood Pressure 155/96 H Pulse Oximetry 98 98 Oxygen Delivery Nasal Cannula Oxygen Flow Rate 1 03/30/25 20:20 03/30/25 21:30 03/30/25 22:00 Temperature Pulse Rate 98 98 Respiratory Rate Blood Pressure Pulse Oximetry 99 95 Oxygen Delivery Nasal Cannula Room Air Oxygen Flow Rate 1 03/30/25 22:00 03/31/25 00:00 03/31/25 00:00 Temperature 99.7 F H Pulse Rate 98 91 Respiratory Rate 23 H Blood Pressure 158/73 H Pulse Oximetry 95 94 Oxygen Delivery Room Air Oxygen Flow Rate 03/31/25 00:00 03/31/25 02:00 03/31/25 02:00 Temperature 99.7 F H 99.9 F H Pulse Rate 91 96 96 Respiratory Rate 22 H 23 H Blood Pressure 165/82 H 159/76 H Pulse Oximetry 94 94 Oxygen Delivery Oxygen Flow Rate 03/31/25 04:00 03/31/25 04:00 03/31/25 04:00 Temperature 99.9 F H Pulse Rate 95 97 Respiratory Rate 21 H Blood Pressure 171/78 H Pulse Oximetry 96 96 Oxygen Delivery Room Air Oxygen Flow Rate 03/31/25 06:00 03/31/25 06:00 03/31/25 08:00 Temperature 99.8 F H 99.9 F H Pulse Rate 91 91 92 Respiratory Rate 16 22 H Blood Pressure 161/86 H 171/83 H Pulse Oximetry 96 96 Oxygen Delivery Oxygen Flow Rate Intake/Output Intake/Output: Intake & Output 03/28/25 03/29/25 03/30/25 03/31/25 23:59 23:59 23:59 23:59 Intake Total 1439 4062.8 2303.8 374 Output Total 919 971 2714 1125 Balance 479 3592.8 1053.8 -751 Meds/Results Medications: Active Medications Generic Name Dose Route Start Last Admin Trade Name Freq PRN Reason Stop Dose Admin Acetaminophen 650 mg 03/26/25 14:08 03/31/25 09:39 Acetaminophen 325 Mg Tablet PO 650 mg Q4H PRN Administration Mild Pain (1-3) or Fever Hydrocodone Bitart/Acetaminophen 1 tab 03/31/25 07:54 Hydrocodone/Acetaminophen (*Crx) 5-325 Mg Tablet PO Q4H PRN Pain Rated 4-6 Albuterol/Ipratropium 3 ml 03/30/25 04:29 03/30/25 05:49 Ipratropium 0.5 Mg/Albuterol Sulfate 2.5 Mg Ampul.Neb 3 Ml INHALATION 3 ml Q6HRT PRN Administration Wheezing Enoxaparin Sodium 40 mg 03/29/25 09:00 03/31/25 09:37 Enoxaparin 40 Mg/0.4 Ml Syringe SUB-Q 40 mg DAILY JAYDEN Administration Levetiracetam 1,500 mg in 100 mls @ 400 mls/hr 03/26/25 21:00 03/31/25 09:38 Keppra Iv IVPB 400 mls/hr Q12HR JAYDEN Administration Piperacillin/Tazobactam/Dextrose 3.375 gm in 50 mls @ 100 mls/hr 03/28/25 13:00 03/31/25 07:14 Zosyn 3.375 Gm/Ns 50 Ml IVPB Infused Q6H JAYDEN Infusion Potassium Phosphate 20 mmol/ 256.6667 mls @ 64.167 mls/hr 03/31/25 09:00 03/31/25 09:36 Sodium Chloride IVPB 03/31/25 12:59 64.17 mls/hr ONCE ONE Administration Naloxone HCl 0.1 mg 03/29/25 00:02 Naloxone Hcl 0.4 Mg/Ml Vial IV PUSH Q2M PRN Opiate Reversal Ondansetron HCl 4 mg 03/26/25 14:08 Ondansetron Inj 4 Mg/2 Ml Vial IV PUSH Q6H PRN Nausea And Vomiting Pantoprazole Sodium 40 mg 03/29/25 09:00 03/31/25 09:37 Pantoprazole Sodium Iv 40 Mg Vial IV PUSH 40 mg DAILY JAYDEN Administration Sodium Chloride 10 ml 03/29/25 14:00 03/31/25 06:43 Central Line Flush IV PUSH 10 ml Q8HR JAYDEN Administration Sodium Chloride 10 ml 03/29/25 09:36 Central Line Flush IV PUSH PRN PRN with TPN bag changes Sodium Chloride 20 ml 03/29/25 09:36 Central Line Flush IV PUSH PRN PRN after blood draws Radiology Results: ITS Impressions Modified Barium Swallow 03/27/25 15:26 IMPRESSION: Oropharyngeal dysphagia with intermittent laryngeal penetration with indeterminate/possible minimal aspiration. Please correlate with speech pathologist findings and specific feeding recommendations. Brain MRI 03/27/25 15:28 IMPRESSION: 1. Normal aging brain with minimal periventricular calcific white matter T2 hyperintensity consistent with chronic small vessel ischemic disease. No acute intracranial process. Cervical Spine MRI 03/28/25 08:39 Impression: Fractured the base of the odontoid process possibly extending from the C2 vertebral body detailed above, most compatible with acute fracture. There is minimal marrow edema and suggestion of possible early cortication along the fracture margins. Alignment appears unchanged as compared to prior CT scans. Anterior fusion of C5 and C6. Moderate to advanced degenerative spondylosis otherwise, as detailed above, with multilevel neural foraminal narrowing. Chest/Abdomen/Pelvis CT 03/28/25 11:45 IMPRESSION: 1. Sigmoid diverticulosis with 6.0 x 5.4 x 3.2 cm gas and feculent material containing cavity consistent with a contained bowel perforation which communicates to the sigmoid colon through a 1.8 x 1.3 cm defect in the wall of the colon. 2. Nonobstructing left nephrolithiasis. 3. Mild cardiomegaly. No acute cardiopulmonary disease. Head CT 03/29/25 09:51 IMPRESSION: 1. No acute intracranial process. 2. Age-related changes including mild to moderate diffuse volume loss and mild scattered white matter attenuation consistent with chronic small vessel ischemic disease. 3. Chronic left frontal craniotomy. Venous Doppler Study 03/29/25 11:29 IMPRESSION: 1. Thrombosis of the left cephalic and basilic veins. Chest X-Ray 03/31/25 06:31 IMPRESSION: The lungs are now clear. Supportive lines and tubes in good position. ADDENDUM: 03/31/25 0812 The endotracheal tube, assumed to be superimposed on the orogastric tube is NOT present on the current study. Patient extubated prior to examination. Labs Labs: Laboratory Results - last 24 hr 03/28/25 03/30/25 03/31/25 16:10 15:48 05:06 WBC 10.0 9.5 RBC 2.68 L 2.74 L Hgb 7.1 L 7.2 L Hct 23.3 L 23.4 L MCV 86.9 85.4 MCH 26.5 26.3 MCHC 30.5 L 30.8 L RDW 18.0 H 18.0 H Plt Count 199 203 MPV 9.4 10.0 Immature Gran % (Auto) 0.4 Neut % (Auto) 79.3 H Lymph % (Auto) 14.5 L [place] % (Auto) 4.4 Eos % (Auto) 1.2 Baso % (Auto) 0.2 Lymph # (Auto) 1.37 [place] # (Auto) 0.4 Eos # (Auto) 0.1 Baso # (Auto) 0.0 Abs Immat Gran (auto) 0.04 H Absolute Neuts (auto) 7.5 H Absolute Nucleated RBC 0.000 Nucleated RBC % 0.0 Sodium 144 Potassium 3.3 L Chloride 113 H Carbon Dioxide 27 Anion Gap 4 BUN 9 D Creatinine 0.63 L Estim Creat Clear Calc 65 Estimated GFR > 60 Glucose 141 H Calcium 8.0 L Phosphorus 2.1 L Magnesium 1.8 Total Bilirubin 0.5 AST 66 H ALT 30 Alkaline Phosphatase 184 H Total Protein 7.0 Albumin 2.6 L Crossmatch See Detail
--- NOTE | 2025-03-31 13:54 | PCRCNOTE ---
Addendum entered by Erinn Erwin, [employer]PER[employer] MANAGER 03/31/25 14:06: RT spoke to Dr. Perera about ezpap. Okay to dc. Original Note: RT attempted twice now to do EZPAP with patient. Patient unable to perform. Patient not seeming to understand to blow out onto the EZPAP. RT not recommending vest due to surgery patient just had and not recommending EZPAP with mask due to patient's NG tube.
--- NOTE | 2025-03-31 15:22 | P.PNIM_ITS ---
Progress Note: A&P Assessment and Plan (1) Acute respiratory failure: Code(s): J96.00 - Acute respiratory failure, unspecified whether with hypoxia or hypercapnia Status: Acute Assessment and Plan: Acute Respiratory failure secondary to altered mental status and inability to protect airway Patient was intubated and extubated on03/30 Currently on room air Avoid sedatives Incentive spirometry patient can do it Bronchodilators (2) Sepsis: Code(s): A41.9 - Sepsis, unspecified organism Status: Acute Assessment and Plan: Sepsis secondary to bowel perforation, peritonitis, UTI Blood and urine cultures have been ordered and pending Continue Zosyn Patient received 2 L fluid bolus. Hold further IV fluid (3) Altered mental status: Code(s): R41.82 - Altered mental status, unspecified Status: Acute Assessment and Plan: Patient presented with altered mental status. Patient also has history of seizure disorder and may have had seizure and be postictal. Other possibilities are sepsis as she had a perforated bowel and UTI Overnight rapid response could be secondary to deterioration of mental status from Dilaudid. MRI brain done on 03/27 did not showed any acute CVA and showed 1. Normal aging brain with minimal periventricular calcific white matter T2 hyperintensity consistent with chronic small vessel ischemic disease. No acute intracranial process EEG as below Recent TSH was normal Normal ammonia Sedation held and now patient is following commands and moving all 4 extremities Neurology following Avoid sedatives and monitor. (4) C2 cervical fracture: Code(s): S12.100A - Unspecified displaced fracture of second cervical vertebra, initial encounter for closed fracture Status: Inactive Assessment and Plan: Patient had a C2 fracture from fall few weeks ago. Patient was evaluated by Neurosurgery. MRI C-spine done on this hospitalization showed following She currently in a soft C-collar. Impression: Fractured the base of the odontoid process possibly extending from the C2 vertebral body detailed above, most compatible with acute fracture. There is minimal marrow edema and suggestion of possible early cortication along the fracture margins. Alignment appears unchanged as compared to prior CT scans. Anterior fusion of C5 and C6. Moderate to advanced degenerative spondylosis otherwise, as detailed above, with multilevel neural foraminal narrowing. (5) Dysphagia: Code(s): R13.10 - Dysphagia, unspecified Status: Acute Assessment and Plan: Patient failed her swallow study prior to surgery. Currently she is getting tube feeds through NG tube I will discuss with speech pathology today and see patient needs a repeat modified barium swallow or we can start modified diet. (6) UTI (urinary tract infection): Code(s): N39.0 - Urinary tract infection, site not specified Status: Resolved Assessment and Plan: See above (7) Seizure disorder: Code(s): G40.909 - Epilepsy, unspecified, not intractable, without status epilepticus Status: Acute Assessment and Plan: History of seizure disorder. Continue Keppra. Currently sedated with Versed 03/28 EEG. IMPRESSION This is an abnormal EEG due to following 1. Nearly continuous focal slow wave activity intermixed with sharp wave transients were seen over left frontal area. This may relate to having previous surgery in this area. Focal slowing is suggestive of underlying structural lesion. Sharp transients are considered nonspecific focal interictal abnormality. Clinical and radiographic correlation are recommended. 2. Mild his background slowing suggestive of generalized encephalopathy (8) Perforation bowel: Code(s): K63.1 - Perforation of intestine (nontraumatic) Status: Acute Assessment and Plan: 03/28 Status post 1. Exploratory laparotomy 2. Sigmoid colon resection with end descending colostomy 3. Ileal resection with [id number] ileal anastomosis NPO Management per General surgery Antibiotics as above (9) Anemia: Code(s): D64.9 - Anemia, unspecified Status: Acute Assessment and Plan: 03/30 Hemoglobin 6.2 this morning likely secondary to surgery and hemodilution. No objective evidence of bleeding at this time. Stool is brown Transfuse 1 unit PRBC and repeat hemoglobin. Coags if you Continue DVT prophylaxis Lovenox at this time. Continue PPI Hemoglobin stable at this time monitor. (10) Superficial vein thrombosis: Code(s): I82.890 - Acute embolism and thrombosis of other specified veins Status: Acute Assessment and Plan: Venous Doppler shows thrombus in the left cephalic and basilic veins and left upper extremity. Continue DVT prophylaxis with Lovenox. Plan patient with c/o abdominal pain had CT scan of the abdomen and pelvic which showed sigmoid diverticulosis with 6.0 x 5.4 x 3.2 cm gas and feculent material containing cavity consistent with a contained bowel perforation which communicates to the sigmoid colon through a 1.8 x 1.3 cm defect in the wall of the colon. patient was seen by surgery service and was taken to the OR on 03/29 and had surgical repair had resection of her intestine and colostomy was placed and the surgery was uneventful, however later in the evening RR was called as patient was unresponsive and was intubated to protect patient airway. on 03/30 patient was extubated and ostomy is functioning now, patient fed via NG tube remain stable off vent in the ICU today will transfer patient out of ICU to IMU. and will monitor and follow the patient. DVT prophylaxis - SCD, Lovenox Stress ulcer prophylaxis - PPI Nutrition -tube feeds Code Status - Full Code Transfer out ICU today Subjective Date/time seen: 03/31/25 15:22 Interval history: Patient is a 74 year old female admitted for Further evaluation of altered mental status with new onset aphasia dysphagia. 03/28/2025: Patient more alert following commands and no longer aphasic and passed swallow evaluation. Patient however has new fevers peaked at 103.2 with no current known source, considering her symptoms on admission have some concerns for Meningitis. Patient did have some rebound tenderness to ABD palpation no N/V, No BM for 4 days. patient with c/o abdominal pain had CT scan of the abdomen and pelvic which showed sigmoid diverticulosis with 6.0 x 5.4 x 3.2 cm gas and feculent material containing cavity consistent with a contained bowel perforation which communicates to the sigmoid colon through a 1.8 x 1.3 cm defect in the wall of the colon. patient was seen by surgery service and was taken to the OR on 03/29 and had surgical repair had resection of her intestine and colostomy was placed and the surgery was uneventful, however later in the evening RR was called as patient was unresponsive and was intubated to protect patient airway. on 03/30 patient was extubated and ostomy is functioning now, patient fed via NG tube remain stable off vent in the ICU today will transfer patient out of ICU to IMU. and will monitor and follow the patient. Review of Systems Review of Systems: ROS unobtainable: Yes unobtainable due to medical condition Exam Narrative: Patient is comfortable, NAD HEENT: NG tube in place LUNGS:CTA HEART: RR S1S2 ABD: BS+, Soft and nontender Lower extremities: no edema SKIN: nonjaundiced Neuro: grossly intact Objective Data Vital Signs Vital Signs: Vital Signs - 24 hr 03/30/25 16:00 03/30/25 16:00 03/30/25 16:00 Temperature 38.1 C H Pulse Rate 100 99 Respiratory Rate 23 H Blood Pressure 151/101 H Pulse Oximetry 100 100 Oxygen Delivery Nasal Cannula Oxygen Flow Rate 2 03/30/25 18:00 03/30/25 18:00 03/30/25 20:00 Temperature 38.0 C H 37.7 C H Pulse Rate 102 H 101 H 95 Respiratory Rate 22 H 19 Blood Pressure 158/86 H 155/96 H Pulse Oximetry 98 98 Oxygen Delivery Oxygen Flow Rate 03/30/25 20:00 03/30/25 20:00 03/30/25 20:20 Temperature Pulse Rate 97 98 Respiratory Rate Blood Pressure Pulse Oximetry 98 99 Oxygen Delivery Nasal Cannula Nasal Cannula Oxygen Flow Rate 1 1 03/30/25 21:30 03/30/25 22:00 03/30/25 22:00 Temperature 37.6 C H Pulse Rate 98 98 Respiratory Rate 23 H Blood Pressure 158/73 H Pulse Oximetry 95 95 Oxygen Delivery Room Air Oxygen Flow Rate 03/31/25 00:00 03/31/25 00:00 03/31/25 00:00 Temperature 37.6 C H Pulse Rate 91 91 Respiratory Rate 22 H Blood Pressure 165/82 H Pulse Oximetry 94 94 Oxygen Delivery Room Air Oxygen Flow Rate 03/31/25 02:00 03/31/25 02:00 03/31/25 04:00 Temperature 37.7 C H Pulse Rate 96 96 Respiratory Rate 23 H Blood Pressure 159/76 H Pulse Oximetry 94 96 Oxygen Delivery Room Air Oxygen Flow Rate 03/31/25 04:00 03/31/25 04:00 03/31/25 06:00 Temperature 37.7 C H Pulse Rate 95 97 91 Respiratory Rate 21 H Blood Pressure 171/78 H Pulse Oximetry 96 Oxygen Delivery Oxygen Flow Rate 03/31/25 06:00 03/31/25 08:00 03/31/25 08:00 Temperature 37.7 C H 37.7 C H Pulse Rate 91 92 92 Respiratory Rate 16 22 H 22 H Blood Pressure 161/86 H 171/83 H Pulse Oximetry 96 96 96 Oxygen Delivery Room Air Oxygen Flow Rate 03/31/25 08:00 03/31/25 10:00 03/31/25 12:00 Temperature 37.3 C Pulse Rate 94 93 93 Respiratory Rate 19 Blood Pressure 145/85 H Pulse Oximetry Oxygen Delivery Oxygen Flow Rate 03/31/25 12:00 03/31/25 12:00 03/31/25 12:11 Temperature Pulse Rate 93 97 Respiratory Rate 19 Blood Pressure Pulse Oximetry 99 99 Oxygen Delivery Room Air Oxygen Flow Rate 03/31/25 14:00 Temperature Pulse Rate 90 Respiratory Rate Blood Pressure Pulse Oximetry Oxygen Delivery Oxygen Flow Rate Intake/Output Intake/Output: Intake & Output 03/28/25 03/29/25 03/30/25 03/31/25 23:59 23:59 23:59 23:59 Intake Total 1439 4062.8 2303.8 524 Output Total 484 318 2008 1125 Balance 479 3592.8 1053.8 -601 Meds/Results Medications: Active Medications Generic Name Dose Route Start Last Admin Trade Name Freq PRN Reason Stop Dose Admin Acetaminophen 650 mg 03/26/25 14:08 03/31/25 09:39 Acetaminophen 325 Mg Tablet PO 650 mg Q4H PRN Administration Mild Pain (1-3) or Fever Hydrocodone Bitart/Acetaminophen 1 tab 03/31/25 07:54 Hydrocodone/Acetaminophen (*Crx) 5-325 Mg Tablet PO Q4H PRN Pain Rated 4-6 Albuterol/Ipratropium 3 ml 03/30/25 04:29 03/30/25 05:49 Ipratropium 0.5 Mg/Albuterol Sulfate 2.5 Mg Ampul.Neb 3 Ml INHALATION 3 ml Q6HRT PRN Administration Wheezing Enoxaparin Sodium 40 mg 03/29/25 09:00 03/31/25 09:37 Enoxaparin 40 Mg/0.4 Ml Syringe SUB-Q 40 mg DAILY JAYDEN Administration Levetiracetam 1,500 mg in 100 mls @ 400 mls/hr 03/26/25 21:00 03/31/25 10:00 Keppra Iv IVPB Infused Q12HR JAYDEN Infusion Piperacillin/Tazobactam/Dextrose 3.375 gm in 50 mls @ 100 mls/hr 03/28/25 13:00 03/31/25 13:15 Zosyn 3.375 Gm/Ns 50 Ml IVPB 04/01/25 23:59 Infused Q6H JAYDEN Infusion Naloxone HCl 0.1 mg 03/29/25 00:02 Naloxone Hcl 0.4 Mg/Ml Vial IV PUSH Q2M PRN Opiate Reversal Ondansetron HCl 4 mg 03/26/25 14:08 Ondansetron Inj 4 Mg/2 Ml Vial IV PUSH Q6H PRN Nausea And Vomiting Pantoprazole Sodium 40 mg 03/29/25 09:00 03/31/25 09:37 Pantoprazole Sodium Iv 40 Mg Vial IV PUSH 40 mg DAILY JAYDEN Administration Sodium Chloride 10 ml 03/29/25 14:00 03/31/25 14:43 Central Line Flush IV PUSH 10 ml Q8HR JAYDEN Administration Sodium Chloride 10 ml 03/29/25 09:36 Central Line Flush IV PUSH PRN PRN with TPN bag changes Sodium Chloride 20 ml 03/29/25 09:36 Central Line Flush IV PUSH PRN PRN after blood draws Radiology Results: ITS Impressions Modified Barium Swallow 03/27/25 15:26 IMPRESSION: Oropharyngeal dysphagia with intermittent laryngeal penetration with indeterminate/possible minimal aspiration. Please correlate with speech pathologist findings and specific feeding recommendations. Brain MRI 03/27/25 15:28 IMPRESSION: 1. Normal aging brain with minimal periventricular calcific white matter T2 hyperintensity consistent with chronic small vessel ischemic disease. No acute intracranial process. Cervical Spine MRI 03/28/25 08:39 Impression: Fractured the base of the odontoid process possibly extending from the C2 vertebral body detailed above, most compatible with acute fracture. There is minimal marrow edema and suggestion of possible early cortication along the fracture margins. Alignment appears unchanged as compared to prior CT scans. Anterior fusion of C5 and C6. Moderate to advanced degenerative spondylosis otherwise, as detailed above, with multilevel neural foraminal narrowing. Chest/Abdomen/Pelvis CT 03/28/25 11:45 IMPRESSION: 1. Sigmoid diverticulosis with 6.0 x 5.4 x 3.2 cm gas and feculent material containing cavity consistent with a contained bowel perforation which communicates to the sigmoid colon through a 1.8 x 1.3 cm defect in the wall of the colon. 2. Nonobstructing left nephrolithiasis. 3. Mild cardiomegaly. No acute cardiopulmonary disease. Head CT 03/29/25 09:51 IMPRESSION: 1. No acute intracranial process. 2. Age-related changes including mild to moderate diffuse volume loss and mild scattered white matter attenuation consistent with chronic small vessel ischemic disease. 3. Chronic left frontal craniotomy. Venous Doppler Study 03/29/25 11:29 IMPRESSION: 1. Thrombosis of the left cephalic and basilic veins. Chest X-Ray 03/31/25 06:31 IMPRESSION: The lungs are now clear. Supportive lines and tubes in good position. ADDENDUM: 03/31/25 0812 The endotracheal tube, assumed to be superimposed on the orogastric tube is NOT present on the current study. Patient extubated prior to examination. Abdomen X-Ray 03/31/25 12:41 IMPRESSION: Nasogastric tube in good position and ready for immediate use. Labs Labs: Laboratory Results - last 24 hr 03/30/25 03/31/25 15:48 05:06 WBC 10.0 9.5 RBC 2.68 L 2.74 L Hgb 7.1 L 7.2 L Hct 23.3 L 23.4 L MCV 86.9 85.4 MCH 26.5 26.3 MCHC 30.5 L 30.8 L RDW 18.0 H 18.0 H Plt Count 199 203 MPV 9.4 10.0 Immature Gran % (Auto) 0.4 Neut % (Auto) 79.3 H Lymph % (Auto) 14.5 L [place] % (Auto) 4.4 Eos % (Auto) 1.2 Baso % (Auto) 0.2 Lymph # (Auto) 1.37 [place] # (Auto) 0.4 Eos # (Auto) 0.1 Baso # (Auto) 0.0 Abs Immat Gran (auto) 0.04 H Absolute Neuts (auto) 7.5 H Absolute Nucleated RBC 0.000 Nucleated RBC % 0.0 Sodium 144 Potassium 3.3 L Chloride 113 H Carbon Dioxide 27 Anion Gap 4 BUN 9 D Creatinine 0.63 L Estim Creat Clear Calc 65 Estimated GFR > 60 Glucose 141 H Calcium 8.0 L Phosphorus 2.1 L Magnesium 1.8 Total Bilirubin 0.5 AST 66 H ALT 30 Alkaline Phosphatase 184 H Total Protein 7.0 Albumin 2.6 L Quality VTE Prophylaxis VTE prophylaxis: mechanical ordered and pharmacologic ordered
--- NOTE | 2025-03-31 16:59 | PC.NURSE ---
This patient, Deedee Duran, was transferred to [[id number] ] on 03/31/25 at 1618. This nurse continues care of this patient after patient was transferred to IMU. Personal belongings sent with patient. Appropriate documentation sent with patient. Family at bedside and aware of transfer.
[2025-04-01] VITALS (13 sets, daily range): BP systolic 155–174; BP diastolic 77–95; PULSE 80–104; RESP 14–20; TEMP 36.3–37.8; O2SAT 97–100
[2025-04-01] MEDS: PIPERACILLN/TAZ 3.375GM/NS50ML 3.375 GM/50 ML BAG IVPB ×4 (02:12→18:24)
[2025-04-01 06:19] LABS: Basophils Percent Auto 0.3 % (0.2-1.2); Eosinophils Absolute Auto 0.2 K/mm3 (0-0.3); Eosinophils Percent Auto 2.3 % (0-4.4); Hematocrit 24.2 % (37.0-47.0); Hemoglobin 7.3 g/dL (12.0-15.0); Immature Granulocyte Absolute 0.04 K/mm3 (0.00-0.031); Immature Granulocyte Percent A 0.5 % (0-0.5); Lymphocytes Absolute Auto 1.67 K/mm3 (0.9-3.2); Lymphocytes Percent Auto 22.5 % (18.3-44.2); Mean Corpuscular HGB Conc 30.2 g/dl (32-36); Mean Corpuscular Hemoglobin 26.4 pg (26-34); Mean Corpuscular Volume 87.7 fl (80-100); Mean Platelet Volume 10.9 fl (7.4-10.4); Monocytes Absolute Auto 0.5 K/mm3 (0.1-0.6); Monocytes Percent Auto 6.3 % (2.6-8.5); Neutrophils Absolute Auto 5.1 K/mm3 (1.3-6.7); Neutrophils Percent Auto 68.1 % (45.5-73.1); Platelet Count Result 216 k/mm3 (150-375); Red Blood Count 2.76 M/mm3 (4.2-5.4); Red Cell Distribution Width 17.6 % (11.5-14.5); White Blood Count 7.4 K/mm3 (4.5-10.0)
[2025-04-01 06:40] LABS: Alanine Aminotransferase 32 U/L (6-35); Albumin Level 2.7 g/dL (3.5-5.1); Alkaline Phosphatase 188 U/L (38-126); Anion Gap 6 mmol/L (4-12); Aspartate Amino Transferase 61 U/L (14-36); Bilirubin,Total 0.3 mg/dL (0.2-1.3); Blood Urea Nitrogen 8 mg/dL (7-17); Calcium 8.2 mg/dL (8.4-10.2); Carbon Dioxide 28 mmol/L (22-30); Chloride 108 mmol/L (98-107); Estimated CRCL calculation 75 ml/min; Estimated Glomerular Filt Rate > 60; Glucose 117 mg/dL (65-110); Magnesium 1.8 mg/dL (1.6-2.3); Phosphorus 2.8 mg/dL (2.5-4.5); Potassium 3.2 mmol/L (3.4-5.0); Sodium 142 mmol/L (137-145)
[2025-04-01] MEDS: CENTRAL LINE FLUSH 10 ML IV PUSH ×3 (07:44→21:34)
--- NOTE | 2025-04-01 08:34 | PC.NURSE ---
PT pulled NG tube out prior to this shift. Notified Dr Soriano who gave order for bedside swallow study.
--- NOTE | 2025-04-01 08:41 | PCNEURO ---
Canceled EEG order because it had already been done just had not been read yet.
--- NOTE | 2025-04-01 09:30 | PCSTNOTE ---
Please refer to the Bedside Swallow Evaluation in the EMR. Please note, silent aspiration cannot be ruled out at bedside. Patient assessed at bedside with limited trials pudding and thin liquid 1/2 tsp amounts via spoon due to decreased level of alertness. Patient able to take 1/2 tsp pudding trials times 2 and 1 1/2 tsp trial water with multiple cues to maintain level of alertness. Oral transit and pharyngeal swallow were both observed to be delayed. Following trials vocal quality was clear without observed coughing. At this time patient alertness is a contributing factor to maintain not only a safe swallow but adequate nutrition to meet her needs.
--- NOTE | 2025-04-01 09:31 | PC.NURSE ---
Spoke with Dr Soriano, received order for NG tube, KUB, then place pt back on tube feed at 20ml/hr. Order read back and verified.
[2025-04-01] MEDS: PANTOPRAZOLE SODIUM IV 40 MG VIAL IV PUSH (09:55)
[2025-04-01] MEDS: levETIRAcetam 1500MG/NACL100ML 1,500 MG/100 ML BAG 400 MG IVPB ×2 (09:55→21:33)
[2025-04-01] MEDS: ENOXAPARIN 40 MG/0.4 ML SYRINGE SUB-Q (09:55)
--- NOTE | 2025-04-01 11:54 | P.PNGS_ITS ---
Progress Note: A&P Assessment and Plan (1) Perforation bowel: Code(s): K63.1 - Perforation of intestine (nontraumatic) Status: Acute Assessment and Plan: * Continue IV Zosyn. * Continue tube feedings until able to swallow. Nursing is going to reach out to speech therapy to re-evaluate her swallow. 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 Overall curve is trending down. Subjective Subjective Date/Time Seen: 04/01/25 11:54 Interval history: Patient has pulled out her NG a couple times. She is talking some today. No abdominal pain. She says she wants some sprite. Exam GI: Inspection: non-distended, incision (intact with noah) and other (ostomy pink and functioning) GI Palp: Yes Soft to palpation and No Guarding due to palpation present (GI) Objective Data Vital Signs Vital Signs: Vital Signs - 24 hr 03/31/25 12:00 03/31/25 12:00 03/31/25 12:00 Temperature 99.2 F Pulse Rate 93 93 97 Respiratory Rate 19 19 Blood Pressure 145/85 H Pulse Oximetry 99 Oxygen Delivery Room Air 03/31/25 12:11 03/31/25 14:00 03/31/25 16:00 Temperature 99.5 F Pulse Rate 90 91 Respiratory Rate 20 Blood Pressure 169/90 H Pulse Oximetry 99 95 Oxygen Delivery 03/31/25 16:00 03/31/25 16:00 03/31/25 18:00 Temperature Pulse Rate 91 92 94 Respiratory Rate 20 Blood Pressure Pulse Oximetry 95 Oxygen Delivery Room Air 03/31/25 19:24 03/31/25 20:00 03/31/25 20:00 Temperature 99.7 F H 98.3 F Pulse Rate 98 96 Respiratory Rate 18 22 H Blood Pressure 153/91 H 167/85 H Pulse Oximetry 95 100 Oxygen Delivery Room Air 03/31/25 20:00 03/31/25 22:00 03/31/25 23:48 Temperature 99.9 F H Pulse Rate 93 96 106 H Respiratory Rate 22 H Blood Pressure 174/87 H Pulse Oximetry 100 Oxygen Delivery 04/01/25 00:00 04/01/25 00:00 04/01/25 02:00 Temperature Pulse Rate 95 103 H Respiratory Rate Blood Pressure Pulse Oximetry Oxygen Delivery Room Air 04/01/25 04:00 04/01/25 04:00 04/01/25 04:00 Temperature 99.9 F H Pulse Rate 97 99 Respiratory Rate 20 Blood Pressure 171/90 H Pulse Oximetry 100 Oxygen Delivery Room Air 04/01/25 06:00 04/01/25 08:00 04/01/25 08:00 Temperature 99.6 F Pulse Rate 96 92 Respiratory Rate 20 Blood Pressure 155/87 H Pulse Oximetry 99 Oxygen Delivery Room Air 04/01/25 08:00 04/01/25 10:00 04/01/25 11:29 Temperature 100.1 F H Pulse Rate 92 93 94 Respiratory Rate 16 Blood Pressure 156/77 H Pulse Oximetry 100 Oxygen Delivery Intake/Output Intake/Output: Intake & Output 03/29/25 03/30/25 03/31/25 04/01/25 23:59 23:59 23:59 23:59 Intake Total 4062.8 2303.8 1013 484 Output Total 470 1250 1875 645 Balance 3592.8 1053.8 -862 -161 Meds/Results Medications: Active Medications Generic Name Dose Route Start Last Admin Trade Name Freq PRN Reason Stop Dose Admin Acetaminophen 650 mg 03/26/25 14:08 03/31/25 09:39 Acetaminophen 325 Mg Tablet PO 650 mg Q4H PRN Administration Mild Pain (1-3) or Fever Hydrocodone Bitart/Acetaminophen 1 tab 03/31/25 07:54 Hydrocodone/Acetaminophen (*Crx) 5-325 Mg Tablet PO Q4H PRN Pain Rated 4-6 Albuterol/Ipratropium 3 ml 03/30/25 04:29 03/30/25 05:49 Ipratropium 0.5 Mg/Albuterol Sulfate 2.5 Mg Ampul.Neb 3 Ml INHALATION 3 ml Q6HRT PRN Administration Wheezing Enoxaparin Sodium 40 mg 03/29/25 09:00 04/01/25 09:55 Enoxaparin 40 Mg/0.4 Ml Syringe SUB-Q 40 mg DAILY JAYDEN Administration Levetiracetam 1,500 mg in 100 mls @ 400 mls/hr 03/26/25 21:00 04/01/25 11:26 Keppra Iv IVPB Infused Q12HR JAYDEN Infusion Piperacillin/Tazobactam/Dextrose 3.375 gm in 50 mls @ 100 mls/hr 03/28/25 13:00 04/01/25 07:09 Zosyn 3.375 Gm/Ns 50 Ml IVPB 04/01/25 23:59 Infused Q6H JAYDEN Infusion Naloxone HCl 0.1 mg 03/29/25 00:02 Naloxone Hcl 0.4 Mg/Ml Vial IV PUSH Q2M PRN Opiate Reversal Ondansetron HCl 4 mg 03/26/25 14:08 Ondansetron Inj 4 Mg/2 Ml Vial IV PUSH Q6H PRN Nausea And Vomiting Pantoprazole Sodium 40 mg 03/29/25 09:00 04/01/25 09:55 Pantoprazole Sodium Iv 40 Mg Vial IV PUSH 40 mg DAILY JAYDEN Administration Sodium Chloride 10 ml 03/29/25 14:00 04/01/25 07:44 Central Line Flush IV PUSH 10 ml Q8HR JAYDEN Administration Sodium Chloride 10 ml 03/29/25 09:36 Central Line Flush IV PUSH PRN PRN with TPN bag changes Sodium Chloride 20 ml 03/29/25 09:36 Central Line Flush IV PUSH PRN PRN after blood draws Radiology Results: ITS Impressions Modified Barium Swallow 03/27/25 15:26 IMPRESSION: Oropharyngeal dysphagia with intermittent laryngeal penetration with indeterminate/possible minimal aspiration. Please correlate with speech pathologist findings and specific feeding recommendations. Brain MRI 03/27/25 15:28 IMPRESSION: 1. Normal aging brain with minimal periventricular calcific white matter T2 hyperintensity consistent with chronic small vessel ischemic disease. No acute intracranial process. Cervical Spine MRI 03/28/25 08:39 Impression: Fractured the base of the odontoid process possibly extending from the C2 vertebral body detailed above, most compatible with acute fracture. There is minimal marrow edema and suggestion of possible early cortication along the fracture margins. Alignment appears unchanged as compared to prior CT scans. Anterior fusion of C5 and C6. Moderate to advanced degenerative spondylosis otherwise, as detailed above, with multilevel neural foraminal narrowing. Chest/Abdomen/Pelvis CT 03/28/25 11:45 IMPRESSION: 1. Sigmoid diverticulosis with 6.0 x 5.4 x 3.2 cm gas and feculent material containing cavity consistent with a contained bowel perforation which communicates to the sigmoid colon through a 1.8 x 1.3 cm defect in the wall of the colon. 2. Nonobstructing left nephrolithiasis. 3. Mild cardiomegaly. No acute cardiopulmonary disease. Head CT 03/29/25 09:51 IMPRESSION: 1. No acute intracranial process. 2. Age-related changes including mild to moderate diffuse volume loss and mild scattered white matter attenuation consistent with chronic small vessel ischemic disease. 3. Chronic left frontal craniotomy. Venous Doppler Study 03/29/25 11:29 IMPRESSION: 1. Thrombosis of the left cephalic and basilic veins. Chest X-Ray 04/01/25 07:09 Impression: Clear lungs. Right-sided PICC line. Abdomen X-Ray 04/01/25 10:44 IMPRESSION: 1. Nasogastric tube in the stomach. Labs Labs: Laboratory Results - last 24 hr 04/01/25 05:51 WBC 7.4 RBC 2.76 L Hgb 7.3 L Hct 24.2 L MCV 87.7 MCH 26.4 MCHC 30.2 L RDW 17.6 H Plt Count 216 MPV 10.9 H Immature Gran % (Auto) 0.5 Neut % (Auto) 68.1 Lymph % (Auto) 22.5 [place] % (Auto) 6.3 Eos % (Auto) 2.3 Baso % (Auto) 0.3 Lymph # (Auto) 1.67 [place] # (Auto) 0.5 Eos # (Auto) 0.2 Baso # (Auto) 0.0 Abs Immat Gran (auto) 0.04 H Absolute Neuts (auto) 5.1 Absolute Nucleated RBC 0.000 Nucleated RBC % 0.0 Sodium 142 Potassium 3.2 L Chloride 108 H Carbon Dioxide 28 Anion Gap 6 BUN 8 Creatinine 0.61 L Estim Creat Clear Calc 75 Estimated GFR > 60 Glucose 117 H Calcium 8.2 L Phosphorus 2.8 Magnesium 1.8 Total Bilirubin 0.3 AST 61 H ALT 32 Alkaline Phosphatase 188 H Total Protein 7.0 Albumin 2.7 L
--- NOTE | 2025-04-01 12:18 | PCNFU ---
Nutrition Follow-Up Complete: Inadequate energy intake related to altered GI function, mechanical ventilation as evidenced by NPO Goal:Meet estimated nutrition needs when medically able Pt current nutrition is NPO, tube feeding. Nutrition recommendation: Jevity 1.5 @ goal rate of 55ml/hr to provide 1815kcals, 77g protein, 919ml free water. Recommend 150ml flush q 4 hrs for an additional 900ml free water (1819ml total) Last recorded weight is 80.7 kg. Bowel Motility: +BM 04/01 Labs Reviewed: Hgb:7.3, HCT:24.2, Alb:2.7, K:3.2, Cr:0.61, Glu:117 Meds Noted: protonix Skin: WNL Additional Notes: Pt pulled out tube, evaluated by speech with recommendations to remain NPO at this time, tube replaced and ready for use. Was on Vital 1.2 tube feeding while in the ICU. Will switch to Jevity 1.5 now as more appropriate. Monitoring orders, plan of care, weights, labs, output Daily in rounds. Follow up every Monday and Monday
[2025-04-01] MEDS: POTASSIUM CHLORIDE 20 MEQ PACKET (FOR LIQUID) 40 MEQ FEED TUBE (14:06)
[2025-04-01] MEDS: HYDROcodone/acetaminophen (*CRX) 5-325 MG TABLET 1 TAB PO ×3 (14:43→23:54)
--- NOTE | 2025-04-01 15:06 | P.PNIM_ITS ---
Progress Note: A&P Assessment and Plan (1) Acute respiratory failure: Code(s): J96.00 - Acute respiratory failure, unspecified whether with hypoxia or hypercapnia Status: Acute Assessment and Plan: Acute Respiratory failure secondary to altered mental status and inability to protect airway Patient was intubated and extubated on03/30 Currently on room air Avoid sedatives Incentive spirometry patient can do it Bronchodilators (2) Sepsis: Code(s): A41.9 - Sepsis, unspecified organism Status: Acute Assessment and Plan: Sepsis secondary to bowel perforation, peritonitis, UTI Blood and urine cultures have been ordered and pending Continue Zosyn Patient received 2 L fluid bolus. Hold further IV fluid (3) Altered mental status: Code(s): R41.82 - Altered mental status, unspecified Status: Acute Assessment and Plan: Patient presented with altered mental status. Patient also has history of seizure disorder and may have had seizure and be postictal. Other possibilities are sepsis as she had a perforated bowel and UTI Overnight rapid response could be secondary to deterioration of mental status from Dilaudid. MRI brain done on 03/27 did not showed any acute CVA and showed 1. Normal aging brain with minimal periventricular calcific white matter T2 hyperintensity consistent with chronic small vessel ischemic disease. No acute intracranial process EEG as below Recent TSH was normal Normal ammonia Sedation held and now patient is following commands and moving all 4 extremities Neurology following Avoid sedatives and monitor. (4) C2 cervical fracture: Code(s): S12.100A - Unspecified displaced fracture of second cervical vertebra, initial encounter for closed fracture Status: Inactive Assessment and Plan: Patient had a C2 fracture from fall few weeks ago. Patient was evaluated by Neurosurgery. MRI C-spine done on this hospitalization showed following She currently in a soft C-collar. Impression: Fractured the base of the odontoid process possibly extending from the C2 vertebral body detailed above, most compatible with acute fracture. There is minimal marrow edema and suggestion of possible early cortication along the fracture margins. Alignment appears unchanged as compared to prior CT scans. Anterior fusion of C5 and C6. Moderate to advanced degenerative spondylosis otherwise, as detailed above, with multilevel neural foraminal narrowing. (5) Dysphagia: Code(s): R13.10 - Dysphagia, unspecified Status: Acute Assessment and Plan: Patient failed her swallow study prior to surgery. Currently she is getting tube feeds through NG tube I will discuss with speech pathology today and see patient needs a repeat modified barium swallow or we can start modified diet. (6) UTI (urinary tract infection): Code(s): N39.0 - Urinary tract infection, site not specified Status: Resolved Assessment and Plan: See above (7) Seizure disorder: Code(s): G40.909 - Epilepsy, unspecified, not intractable, without status epilepticus Status: Acute Assessment and Plan: History of seizure disorder. Continue Keppra. Currently sedated with Versed 03/28 EEG. IMPRESSION This is an abnormal EEG due to following 1. Nearly continuous focal slow wave activity intermixed with sharp wave transients were seen over left frontal area. This may relate to having previous surgery in this area. Focal slowing is suggestive of underlying structural lesion. Sharp transients are considered nonspecific focal interictal abnormality. Clinical and radiographic correlation are recommended. 2. Mild his background slowing suggestive of generalized encephalopathy (8) Perforation bowel: Code(s): K63.1 - Perforation of intestine (nontraumatic) Status: Acute Assessment and Plan: 03/28 Status post 1. Exploratory laparotomy 2. Sigmoid colon resection with end descending colostomy 3. Ileal resection with [id number]-[id number] ileal anastomosis NPO Management per General surgery Antibiotics as above (9) Anemia: Code(s): D64.9 - Anemia, unspecified Status: Acute Assessment and Plan: 03/30 Hemoglobin 6.2 this morning likely secondary to surgery and hemodilution. No objective evidence of bleeding at this time. Stool is brown Transfuse 1 unit PRBC and repeat hemoglobin. Coags if you Continue DVT prophylaxis Lovenox at this time. Continue PPI Hemoglobin stable at this time monitor. (10) Superficial vein thrombosis: Code(s): I82.890 - Acute embolism and thrombosis of other specified veins Status: Acute Assessment and Plan: Venous Doppler shows thrombus in the left cephalic and basilic veins and left upper extremity. Continue DVT prophylaxis with Lovenox. Plan patient with c/o abdominal pain had CT scan of the abdomen and pelvic which showed sigmoid diverticulosis with 6.0 x 5.4 x 3.2 cm gas and feculent material containing cavity consistent with a contained bowel perforation which communicates to the sigmoid colon through a 1.8 x 1.3 cm defect in the wall of the colon. patient was seen by surgery service and was taken to the OR on 03/29 and had surgical repair had resection of her intestine and colostomy was placed and the surgery was uneventful, however later in the evening RR was called as patient was unresponsive and was intubated to protect patient airway. on 03/30 patient was extubated and ostomy is functioning now, patient fed via NG tube remain stable off vent in the ICU patient was transferred out of ICU to IMU on 03/31. today patient was seen by speech therapist recommending tube feeding as patient is quite weak to swallow, there was also concern upon arrival that patient have tonsillars abscess will consult ENT for further recommendations. and will monitor and follow the patient. DVT prophylaxis - SCD, Lovenox Stress ulcer prophylaxis - PPI Nutrition -tube feeds Code Status - Full Code Transfer out ICU today Subjective Date/time seen: 04/01/25 15:06 Interval history: Patient is a 74 year old female admitted for Further evaluation of altered mental status with new onset aphasia dysphagia. 03/28/2025: Patient more alert following commands and no longer aphasic and passed swallow evaluation. Patient however has new fevers peaked at 103.2 with no current known source, considering her symptoms on admission have some concerns for Meni ngitis. Patient did have some rebound tenderness to ABD palpation no N/V, No BM for 4 days. patient with c/o abdominal pain had CT scan of the abdomen and pelvic which showed sigmoid diverticulosis with 6.0 x 5.4 x 3.2 cm gas and feculent material containing cavity consistent with a contained bowel perforation which communicates to the sigmoid colon through a 1.8 x 1.3 cm defect in the wall of the colon. patient was seen by surgery service and was taken to the OR on 03/29 and had surgical repair had resection of her intestine and colostomy was placed and the surgery was uneventful, however later in the evening RR was called as patient was unresponsive and was intubated to protect patient airway. on 03/30 patient was extubated and ostomy is functioning now, patient fed via NG tube remain stable off vent in the ICU patient was transferred out of ICU to IMU on 03/31. today patient was seen by speech therapist recommending tube feeding as patient is quite weak to swallow, there was also concern upon arrival that patient have tonsillars abscess will consult ENT for further recommendations. and will monitor and follow the patient. Review of Systems Review of Systems: All systems reviewed & are unremarkable except as noted in HPI and below ROS unobtainable: Yes unobtainable due to endotracheal tube, unobtainable due to medical condition and unobtainable due to mental status Exam Narrative: Patient is comfortable, NAD HEENT: NG tube in place LUNGS:CTA HEART: RR S1S2 ABD: BS+, Soft and nontender Lower extremities: no edema SKIN: nonjaundiced Neuro: grossly intact Objective Data Vital Signs Vital Signs: Vital Signs - 24 hr 03/31/25 16:00 03/31/25 16:00 03/31/25 16:00 Temperature 37.5 C Pulse Rate 91 91 92 Respiratory Rate 20 20 Blood Pressure 169/90 H Pulse Oximetry 95 95 Oxygen Delivery Room Air 03/31/25 18:00 03/31/25 19:24 03/31/25 20:00 Temperature 37.6 C H 36.8 C Pulse Rate 94 98 96 Respiratory Rate 18 22 H Blood Pressure 153/91 H 167/85 H Pulse Oximetry 95 100 Oxygen Delivery 03/31/25 20:00 03/31/25 20:00 03/31/25 22:00 Temperature Pulse Rate 93 96 Respiratory Rate Blood Pressure Pulse Oximetry Oxygen Delivery Room Air 03/31/25 23:48 04/01/25 00:00 04/01/25 00:00 Temperature 37.7 C H Pulse Rate 106 H 95 Respiratory Rate 22 H Blood Pressure 174/87 H Pulse Oximetry 100 Oxygen Delivery Room Air 04/01/25 02:00 04/01/25 04:00 04/01/25 04:00 Temperature Pulse Rate 103 H 97 Respiratory Rate Blood Pressure Pulse Oximetry Oxygen Delivery Room Air 04/01/25 04:00 04/01/25 06:00 04/01/25 08:00 Temperature 37.7 C H 37.6 C Pulse Rate 99 96 92 Respiratory Rate 20 20 Blood Pressure 171/90 H 155/87 H Pulse Oximetry 100 99 Oxygen Delivery 04/01/25 08:00 04/01/25 08:00 04/01/25 10:00 Temperature Pulse Rate 92 93 Respiratory Rate Blood Pressure Pulse Oximetry Oxygen Delivery Room Air 04/01/25 11:29 04/01/25 12:00 Temperature 37.8 C H Pulse Rate 94 92 Respiratory Rate 16 Blood Pressure 156/77 H Pulse Oximetry 100 Oxygen Delivery Intake/Output Intake/Output: Intake & Output 0503/30/25 03/31/25 04/01/25 23:59 23:59 23:59 23:59 Intake Total 4062.8 2303.8 1013 534 Output Total 792 6270 7255 1045 Balance 3592.8 1053.8 -862 -511 Meds/Results Medications: Active Medications Generic Name Dose Route Start Last Admin Trade Name Freq PRN Reason Stop Dose Admin Acetaminophen 650 mg 03/26/25 14:08 03/31/25 09:39 Acetaminophen 325 Mg Tablet PO 650 mg Q4H PRN Administration Mild Pain (1-3) or Fever Hydrocodone Bitart/Acetaminophen 1 tab 03/31/25 07:54 04/01/25 14:43 Hydrocodone/Acetaminophen (*Crx) 5-325 Mg Tablet PO 1 tab Q4H PRN Administration Pain Rated 4-6 Albuterol/Ipratropium 3 ml 03/30/25 04:29 03/30/25 05:49 Ipratropium 0.5 Mg/Albuterol Sulfate 2.5 Mg Ampul.Neb 3 Ml INHALATION 3 ml Q6HRT PRN Administration Wheezing Enoxaparin Sodium 40 mg 03/29/25 09:00 04/01/25 09:55 Enoxaparin 40 Mg/0.4 Ml Syringe SUB-Q 40 mg DAILY JAYDEN Administration Levetiracetam 1,500 mg in 100 mls @ 400 mls/hr 03/26/25 21:00 04/01/25 11:26 Keppra Iv IVPB Infused Q12HR JAYDEN Infusion Piperacillin/Tazobactam/Dextrose 3.375 gm in 50 mls @ 100 mls/hr 03/28/25 13:00 04/01/25 14:20 Zosyn 3.375 Gm/Ns 50 Ml IVPB 04/01/25 23:59 Infused Q6H JAYDEN Infusion Naloxone HCl 0.1 mg 03/29/25 00:02 Naloxone Hcl 0.4 Mg/Ml Vial IV PUSH Q2M PRN Opiate Reversal Ondansetron HCl 4 mg 03/26/25 14:08 Ondansetron Inj 4 Mg/2 Ml Vial IV PUSH Q6H PRN Nausea And Vomiting Pantoprazole Sodium 40 mg 03/29/25 09:00 04/01/25 09:55 Pantoprazole Sodium Iv 40 Mg Vial IV PUSH 40 mg DAILY JAYDEN Administration Sodium Chloride 10 ml 03/29/25 14:00 04/01/25 14:12 Central Line Flush IV PUSH 10 ml Q8HR JAYDEN Administration Sodium Chloride 10 ml 03/29/25 09:36 Central Line Flush IV PUSH PRN PRN with TPN bag changes Sodium Chloride 20 ml 03/29/25 09:36 Central Line Flush IV PUSH PRN PRN after blood draws Radiology Results: ITS Impressions Modified Barium Swallow 03/27/25 15:26 IMPRESSION: Oropharyngeal dysphagia with intermittent laryngeal penetration with indeterminate/possible minimal aspiration. Please correlate with speech pathologist findings and specific feeding recommendations. Brain MRI 03/27/25 15:28 IMPRESSION: 1. Normal aging brain with minimal periventricular calcific white matter T2 hyperintensity consistent with chronic small vessel ischemic disease. No acute intracranial process. Cervical Spine MRI 03/28/25 08:39 Impression: Fractured the base of the odontoid process possibly extending from the C2 vertebral body detailed above, most compatible with acute fracture. There is minimal marrow edema and suggestion of possible early cortication along the fracture margins. Alignment appears unchanged as compared to prior CT scans. Anterior fusion of C5 and C6. Moderate to advanced degenerative spondylosis otherwise, as detailed above, with multilevel neural foraminal narrowing. Chest/Abdomen/Pelvis CT 03/28/25 11:45 IMPRESSION: 1. Sigmoid diverticulosis with 6.0 x 5.4 x 3.2 cm gas and feculent material containing cavity consistent with a contained bowel perforation which communicates to the sigmoid colon through a 1.8 x 1.3 cm defect in the wall of the colon. 2. Nonobstructing left nephrolithiasis. 3. Mild cardiomegaly. No acute cardiopulmonary disease. Head CT 03/29/25 09:51 IMPRESSION: 1. No acute intracranial process. 2. Age-related changes including mild to moderate diffuse volume loss and mild scattered white matter attenuation consistent with chronic small vessel ischemic disease. 3. Chronic left frontal craniotomy. Venous Doppler Study 03/29/25 11:29 IMPRESSION: 1. Thrombosis of the left cephalic and basilic veins. Chest X-Ray 04/01/25 07:09 Impression: Clear lungs. Right-sided PICC line. Abdomen X-Ray 04/01/25 10:44 IMPRESSION: 1. Nasogastric tube in the stomach. Labs Labs: Laboratory Results - last 24 hr 04/01/25 05:51 WBC 7.4 RBC 2.76 L Hgb 7.3 L Hct 24.2 L MCV 87.7 MCH 26.4 MCHC 30.2 L RDW 17.6 H Plt Count 216 MPV 10.9 H Immature Gran % (Auto) 0.5 Neut % (Auto) 68.1 Lymph % (Auto) 22.5 [place] % (Auto) 6.3 Eos % (Auto) 2.3 Baso % (Auto) 0.3 Lymph # (Auto) 1.67 [place] # (Auto) 0.5 Eos # (Auto) 0.2 Baso # (Auto) 0.0 Abs Immat Gran (auto) 0.04 H Absolute Neuts (auto) 5.1 Absolute Nucleated RBC 0.000 Nucleated RBC % 0.0 Sodium 142 Potassium 3.2 L Chloride 108 H Carbon Dioxide 28 Anion Gap 6 BUN 8 Creatinine 0.61 L Estim Creat Clear Calc 75 Estimated GFR > 60 Glucose 117 H Calcium 8.2 L Phosphorus 2.8 Magnesium 1.8 Total Bilirubin 0.3 AST 61 H ALT 32 Alkaline Phosphatase 188 H Total Protein 7.0 Albumin 2.7 L Quality VTE Prophylaxis VTE prophylaxis: mechanical ordered and pharmacologic ordered
--- NOTE | 2025-04-01 17:31 | P.CONS_ITS ---
Assessment and Plan Assessment and plan (1) Peritonsillar abscess: Code(s): J36 - Peritonsillar abscess Status: Acute Plan [employer] likely resolved, no evidence of [employer]OR on examination today. No need for incision and drainage today. With any concern I recommend repeat imaging CT neck with contrast. Thank you for this consult. HPI Data of Consult Date/Time: 04/01/25 17:31 Requesting Physician: Tessie Soriano MD Primary Care Provider: Julio Manriquez MD Consult Narrative Narrative: Deedee Duran is a 74 year old female with imaging from 03/26 demonstrating right-sided [employer]. I presume the patient has been on antibiotics since. Today at bedside she is on pit days. Pip Tazo PMFSH Past Medical History Medical History (Updated 04/01/25 @ 17:32 by Rafi Pascal MD) C2 cervical fracture CAD (coronary artery disease) Coarse tremors Subdural hemorrhage Subarachnoid hemorrhage Migraine Hypertension Family History Family History Mother Hypertension Spinal cord cancer Sibling Colon cancer Hypertension Other Breast cancer Social History Social History Smoking packs per day: 0.5 Smoking cigarettes per day: 10.0 Years smoked: 20 Smoking pack-years: 10.00 Smoking status: Former smoker Tobacco type: cigarettes Second hand tobacco smoke exposure: No Alcohol intake: never Substance use: never Spiritual care concerns: No Meds Home Medications and Allergies Home Medications ?Medication ?Instructions ?Recorded ?Confirmed ?Type amlodipine 10 mg tablet 10 mg PO DAILY 03/10/25 03/26/25 History aspirin 81 mg chewable tablet 81 mg PO DAILY 03/10/25 03/26/25 History docusate sodium 100 mg capsule 100 mg PO BID 03/10/25 03/26/25 History levetiracetam 250 mg tablet 1,500 mg PO DAILY 03/10/25 03/26/25 History (Keppra) oxycodone 5 mg tablet 5 mg PO Q6H PRN pain 03/10/25 03/26/25 History polyethylene glycol 3350 17 17 g PO DAILY 03/10/25 03/26/25 History gram/dose oral powder (ClearLax) potassium chloride 10 mEq 10 meq PO DAILY 03/10/25 03/26/25 History capsule,extended release prasugrel HCl 10 mg tablet 10 mg PO DAILY 03/10/25 03/26/25 History (Effient) primidone 250 mg tablet 250 mg PO QID 03/10/25 03/26/25 History topiramate 25 mg tablet (Topamax) 25 mg PO HS 03/10/25 03/26/25 History acetaminophen 500 mg capsule 1,000 mg PO Q6H PRN fever or pain 03/25/25 03/26/25 History Allergies Allergy/AdvReac Type Severity Reaction Status Date / Time morphine Allergy Unknown Unknown Verified 03/25/25 12:49 Vital Signs Vital Signs - 24 hr 03/31/25 18:00 03/31/25 19:24 03/31/25 20:00 Temperature 37.6 C H 36.8 C Pulse Rate 94 98 96 Respiratory Rate 18 22 H Blood Pressure 153/91 H 167/85 H Pulse Oximetry 95 100 Oxygen Delivery 03/31/25 20:00 03/31/25 20:00 03/31/25 22:00 Temperature Pulse Rate 93 96 Respiratory Rate Blood Pressure Pulse Oximetry Oxygen Delivery Room Air 03/31/25 23:48 04/01/25 00:00 04/01/25 00:00 Temperature 37.7 C H Pulse Rate 106 H 95 Respiratory Rate 22 H Blood Pressure 174/87 H Pulse Oximetry 100 Oxygen Delivery Room Air 04/01/25 02:00 04/01/25 04:00 04/01/25 04:00 Temperature Pulse Rate 103 H 97 Respiratory Rate Blood Pressure Pulse Oximetry Oxygen Delivery Room Air 04/01/25 04:00 04/01/25 06:00 04/01/25 08:00 Temperature 37.7 C H 37.6 C Pulse Rate 99 96 92 Respiratory Rate 20 20 Blood Pressure 171/90 H 155/87 H Pulse Oximetry 100 99 Oxygen Delivery 04/01/25 08:00 04/01/25 08:00 04/01/25 10:00 Temperature Pulse Rate 92 93 Respiratory Rate Blood Pressure Pulse Oximetry Oxygen Delivery Room Air 04/01/25 11:29 04/01/25 12:00 04/01/25 16:00 Temperature 37.8 C H Pulse Rate 94 92 80 Respiratory Rate 16 14 Blood Pressure 156/77 H 174/89 H Pulse Oximetry 100 97 Oxygen Delivery Exam 2 Narrative: Relatively normal examination feeding tube in left narrow right-sided tonsil is slightly larger than left the peritonsillar space feels soft completely normal. I was able to examine the entire fossa. Results Labs 04/01/25 05:51 04/01/25 05:51 Labs: Short CBC 04/01/25 Range/Units 05:51 WBC 7.4 (4.5-10.0) K/mm3 Hgb 7.3 L (12.0-15.0) g/dL Hct 24.2 L (37.0-47.0) % Plt Count 216 (150-375) k/mm3 BMP 04/01/25 05:51 Sodium 142 Potassium 3.2 L Chloride 108 H Carbon Dioxide 28 BUN 8 Creatinine 0.61 L Glucose 117 H Calcium 8.2 L Liver Function 04/01/25 Range/Units 05:51 Total Bilirubin 0.3 (0.2-1.3) mg/dL AST 61 H (14-36) U/L ALT 32 (6-35) U/L Alkaline Phosphatase 188 H (38-126) U/L Albumin 2.7 L (3.5-5.1) g/dL
[2025-04-01 17:59] LABS: Glucose Point of Care 108 mg/dl (65-105)
[2025-04-02] VITALS (8 sets, daily range): BP systolic 113–155; BP diastolic 65–107; PULSE 82–102; RESP 16–20; TEMP 36.2–37.1; O2SAT 97–100; BMI 10.0
[2025-04-02] MEDS: CENTRAL LINE FLUSH 10 ML IV PUSH ×3 (05:10→22:04)
[2025-04-02 05:49] LABS: Basophils Percent Auto 0.3 % (0.2-1.2); Eosinophils Absolute Auto 0.2 K/mm3 (0-0.3); Eosinophils Percent Auto 2.6 % (0-4.4); Hematocrit 24.5 % (37.0-47.0); Hemoglobin 7.3 g/dL (12.0-15.0); Immature Granulocyte Absolute 0.03 K/mm3 (0.00-0.031); Immature Granulocyte Percent A 0.5 % (0-0.5); Lymphocytes Absolute Auto 1.62 K/mm3 (0.9-3.2); Lymphocytes Percent Auto 25.1 % (18.3-44.2); Mean Corpuscular HGB Conc 29.8 g/dl (32-36); Mean Corpuscular Hemoglobin 26.1 pg (26-34); Mean Corpuscular Volume 87.5 fl (80-100); Mean Platelet Volume 10.4 fl (7.4-10.4); Monocytes Absolute Auto 0.5 K/mm3 (0.1-0.6); Monocytes Percent Auto 7.1 % (2.6-8.5); Neutrophils Absolute Auto 4.2 K/mm3 (1.3-6.7); Neutrophils Percent Auto 64.4 % (45.5-73.1); Platelet Count Result 202 k/mm3 (150-375); Red Cell Distribution Width 17.1 % (11.5-14.5); White Blood Count 6.5 K/mm3 (4.5-10.0)
[2025-04-02 06:18] LABS: Alanine Aminotransferase 38 U/L (6-35); Albumin Level 2.7 g/dL (3.5-5.1); Alkaline Phosphatase 172 U/L (38-126); Anion Gap 4 mmol/L (4-12); Aspartate Amino Transferase 79 U/L (14-36); Bilirubin,Total 0.2 mg/dL (0.2-1.3); Blood Urea Nitrogen 9 mg/dL (7-17); Calcium 8.2 mg/dL (8.4-10.2); Carbon Dioxide 28 mmol/L (22-30); Chloride 104 mmol/L (98-107); Estimated CRCL calculation 66 ml/min; Estimated Glomerular Filt Rate > 60; Glucose 149 mg/dL (65-110); Magnesium 1.8 mg/dL (1.6-2.3); Phosphorus 2.9 mg/dL (2.5-4.5); Potassium 3.6 mmol/L (3.4-5.0); Sodium 136 mmol/L (137-145)
[2025-04-02 06:49] LABS: Anisocytosis 1+; Hypochromasia 1+; Platelet Estimate Adequate (Adequate); Schistocytes None Seen
[2025-04-02 07:16] LABS: Glucose Point of Care 155 mg/dl (65-105)
[2025-04-02] MEDS: ENOXAPARIN 40 MG/0.4 ML SYRINGE SUB-Q (08:01)
[2025-04-02] MEDS: HYDROcodone/acetaminophen (*CRX) 5-325 MG TABLET 1 TAB PO ×3 (08:01→17:12)
[2025-04-02] MEDS: PANTOPRAZOLE SODIUM IV 40 MG VIAL IV PUSH (08:01)
--- NOTE | 2025-04-02 10:58 | PM.PNGS ---
Progress Note: A&P Assessment and Plan (1) Perforation bowel: Code(s): K63.1 - Perforation of intestine (nontraumatic) Status: Acute Assessment and Plan: Continue IV Zosyn. Swallow study went well today, and patient is ok to advance to soft diet. Tube feed cut in half. Start puree diet with mildly thickened liquids. Will supplement with Ensure TID with meals per surveillance dual rate officer recommendations. 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 Overall curve is trending down. Subjective Subjective Date/Time Seen: 04/02/25 10:58 Interval history: Patient is not talking much today, but was able to express that her pain is better. Ostomy has good output with no surrounding erythema or edema. Evaluated by speech therapy this morning who recommended initiating puree (level 4) and mildly thick (level 2) liquids. Advance as tolerated as alertness improves. Exam GI: Inspection: non-distended, incision (intact with noah), scar (Lower midline) and other (ostomy pink and functioning) Auscultation: normal bowel sounds and Hypoactive bowel sounds present Other: Colostomy with soft brown stool in bag, stoma pink and viable Objective Data Vital Signs Vital Signs: Vital Signs - 24 hr 04/01/25 11:29 04/01/25 12:00 04/01/25 16:00 Temperature 100.1 F H Pulse Rate 94 92 80 Respiratory Rate 16 14 Blood Pressure 156/77 H 174/89 H Pulse Oximetry 100 97 Oxygen Delivery Fraction of Inspired Oxygen 04/01/25 16:00 04/01/25 19:34 04/01/25 20:02 Temperature 97.3 F L Pulse Rate 104 H 95 92 Respiratory Rate 20 Blood Pressure 161/95 H Pulse Oximetry 100 Oxygen Delivery Fraction of Inspired Oxygen 04/01/25 20:20 04/01/25 21:31 04/02/25 00:00 Temperature 97.2 F L Pulse Rate 88 88 90 Respiratory Rate 20 20 20 Blood Pressure 153/97 H Pulse Oximetry 99 99 97 Oxygen Delivery Room Air Room Air Fraction of Inspired Oxygen 04/02/25 00:00 04/02/25 04:00 04/02/25 04:00 Temperature 98.7 F Pulse Rate 90 82 90 Respiratory Rate 16 Blood Pressure 113/65 Pulse Oximetry 97 Oxygen Delivery Fraction of Inspired Oxygen 04/02/25 08:00 Temperature 98.2 F Pulse Rate 97 Respiratory Rate 16 Blood Pressure 152/85 H Pulse Oximetry 98 Oxygen Delivery Fraction of Inspired Oxygen Intake/Output Intake/Output: Intake & Output 03/30/25 03/31/25 04/01/25 04/02/25 23:59 23:59 23:59 23:59 Intake Total 2303.8 1731 122.4519 Output Total 1250 1875 1045 710 Balance 1053.8 -862 -104.3333 -710 Meds/Results Medications: Active Medications Generic Name Dose Route Start Last Admin Trade Name Freq PRN Reason Stop Dose Admin Acetaminophen 650 mg 03/26/25 14:08 03/31/25 09:39 Acetaminophen 325 Mg Tablet PO 650 mg Q4H PRN Administration Mild Pain (1-3) or Fever Hydrocodone Bitart/Acetaminophen 1 tab 03/31/25 07:54 04/02/25 08:01 Hydrocodone/Acetaminophen (*Crx) 5-325 Mg Tablet PO 1 tab Q4H PRN Administration Pain Rated 4-6 Albuterol/Ipratropium 3 ml 03/30/25 04:29 03/30/25 05:49 Ipratropium 0.5 Mg/Albuterol Sulfate 2.5 Mg Ampul.Neb 3 Ml INHALATION 3 ml Q6HRT PRN Administration Wheezing Enoxaparin Sodium 40 mg 03/29/25 09:00 04/02/25 08:01 Enoxaparin 40 Mg/0.4 Ml Syringe SUB-Q 40 mg DAILY JAYDEN Administration Levetiracetam 1,500 mg in 100 mls @ 400 mls/hr 03/26/25 21:00 04/01/25 21:48 Keppra Iv IVPB Infused Q12HR JAYDEN Infusion Naloxone HCl 0.1 mg 03/29/25 00:02 Naloxone Hcl 0.4 Mg/Ml Vial IV PUSH Q2M PRN Opiate Reversal Ondansetron HCl 4 mg 03/26/25 14:08 Ondansetron Inj 4 Mg/2 Ml Vial IV PUSH Q6H PRN Nausea And Vomiting Pantoprazole Sodium 40 mg 03/29/25 09:00 04/02/25 08:01 Pantoprazole Sodium Iv 40 Mg Vial IV PUSH 40 mg DAILY JAYDEN Administration Sodium Chloride 10 ml 03/29/25 14:00 04/02/25 05:10 Central Line Flush IV PUSH 10 ml Q8HR JAYDEN Administration Sodium Chloride 10 ml 03/29/25 09:36 Central Line Flush IV PUSH PRN PRN with TPN bag changes Sodium Chloride 20 ml 03/29/25 09:36 Central Line Flush IV PUSH PRN PRN after blood draws Radiology Results: ITS Impressions Modified Barium Swallow 03/27/25 15:26 IMPRESSION: Oropharyngeal dysphagia with intermittent laryngeal penetration with indeterminate/possible minimal aspiration. Please correlate with speech pathologist findings and specific feeding recommendations. Brain MRI 03/27/25 15:28 IMPRESSION: 1. Normal aging brain with minimal periventricular calcific white matter T2 hyperintensity consistent with chronic small vessel ischemic disease. No acute intracranial process. Cervical Spine MRI 03/28/25 08:39 Impression: Fractured the base of the odontoid process possibly extending from the C2 vertebral body detailed above, most compatible with acute fracture. There is minimal marrow edema and suggestion of possible early cortication along the fracture margins. Alignment appears unchanged as compared to prior CT scans. Anterior fusion of C5 and C6. Moderate to advanced degenerative spondylosis otherwise, as detailed above, with multilevel neural foraminal narrowing. Chest/Abdomen/Pelvis CT 03/28/25 11:45 IMPRESSION: 1. Sigmoid diverticulosis with 6.0 x 5.4 x 3.2 cm gas and feculent material containing cavity consistent with a contained bowel perforation which communicates to the sigmoid colon through a 1.8 x 1.3 cm defect in the wall of the colon. 2. Nonobstructing left nephrolithiasis. 3. Mild cardiomegaly. No acute cardiopulmonary disease. Head CT 03/29/25 09:51 IMPRESSION: 1. No acute intracranial process. 2. Age-related changes including mild to moderate diffuse volume loss and mild scattered white matter attenuation consistent with chronic small vessel ischemic disease. 3. Chronic left frontal craniotomy. Venous Doppler Study 03/29/25 11:29 IMPRESSION: 1. Thrombosis of the left cephalic and basilic veins. Abdomen X-Ray 04/01/25 10:44 IMPRESSION: 1. Nasogastric tube in the stomach. Chest X-Ray 04/02/25 06:45 Impression: Clear lungs. Support tubes, as above. Labs Labs: Laboratory Results - last 24 hr 04/01/25 04/02/25 04/02/25 17:54 05:37 07:13 WBC 6.5 RBC 2.80 L Hgb 7.3 L Hct 24.5 L MCV 87.5 MCH 26.1 MCHC 29.8 L RDW 17.1 H Plt Count 202 MPV 10.4 Immature Gran % (Auto) 0.5 Neut % (Auto) 64.4 Lymph % (Auto) 25.1 [place] % (Auto) 7.1 Eos % (Auto) 2.6 Baso % (Auto) 0.3 Lymph # (Auto) 1.62 [place] # (Auto) 0.5 Eos # (Auto) 0.2 Baso # (Auto) 0.0 Abs Immat Gran (auto) 0.03 Absolute Neuts (auto) 4.2 Absolute Nucleated RBC 0.000 Band Neutrophils % Not Reportable Nucleated RBC % 0.0 Platelet Estimate Adequate Hypochromasia 1+ Anisocytosis 1+ Schistocytes None seen Sodium 136 L Potassium 3.6 Chloride 104 Carbon Dioxide 28 Anion Gap 4 BUN 9 Creatinine 0.62 L Estim Creat Clear Calc 66 Estimated GFR > 60 Glucose 149 H POC Capillary Glucose 108 H 155 H Calcium 8.2 L Phosphorus 2.9 Magnesium 1.8 Total Bilirubin 0.2 AST 79 H ALT 38 H Alkaline Phosphatase 172 H Total Protein 7.0 Albumin 2.7 L
[2025-04-02] MEDS: levETIRAcetam 1500MG/NACL100ML 1,500 MG/100 ML BAG 400 MG IVPB ×2 (11:20→20:55)
[2025-04-02 11:59] LABS: Glucose Point of Care 146 mg/dl (65-105)
--- NOTE | 2025-04-02 14:05 | PCDIET ---
Spoke with CAMMY Stephenson today regarding diet orders. Patient had MBS today recommending Pureed, Level 4 diet with Mild Thick liquids, Level 2. New diet orders placed for diet and plans to 1/2 rating tube feeding of Jevity 1.5 at 30 ml/hr. Ensure Enlive added TID for additional 350 kcal and 20 gm protein needs. Following.
--- NOTE | 2025-04-02 15:19 | PCPTNOTE ---
Patient initially ok with attempting therapy evaluation 1445, but on attempts to roll patient says no no no. Will try tomorrow when patient is less fatigued.
--- NOTE | 2025-04-02 16:15 | PM.IMPN ---
Progress Note: A&P Assessment and Plan (1) Acute respiratory failure: Code(s): J96.00 - Acute respiratory failure, unspecified whether with hypoxia or hypercapnia Status: Acute Assessment and Plan: Acute Respiratory failure secondary to altered mental status and inability to protect airway Patient was intubated and extubated on03/30 Currently on room air Avoid sedatives Incentive spirometry patient can do it Bronchodilators (2) Sepsis: Code(s): A41.9 - Sepsis, unspecified organism Status: Acute Assessment and Plan: Sepsis secondary to bowel perforation, peritonitis, UTI Blood and urine cultures have been ordered and pending Continue Zosyn Patient received 2 L fluid bolus. Hold further IV fluid (3) Altered mental status: Code(s): R41.82 - Altered mental status, unspecified Status: Acute Assessment and Plan: Patient presented with altered mental status. Patient also has history of seizure disorder and may have had seizure and be postictal. Other possibilities are sepsis as she had a perforated bowel and UTI Overnight rapid response could be secondary to deterioration of mental status from Dilaudid. MRI brain done on 03/27 did not showed any acute CVA and showed 1. Normal aging brain with minimal periventricular calcific white matter T2 hyperintensity consistent with chronic small vessel ischemic disease. No acute intracranial process EEG as below Recent TSH was normal Normal ammonia Sedation held and now patient is following commands and moving all 4 extremities Neurology following Avoid sedatives and monitor. (4) C2 cervical fracture: Code(s): S12.100A - Unspecified displaced fracture of second cervical vertebra, initial encounter for closed fracture Status: Inactive Assessment and Plan: Patient had a C2 fracture from fall few weeks ago. Patient was evaluated by Neurosurgery. MRI C-spine done on this hospitalization showed following She currently in a soft C-collar. Impression: Fractured the base of the odontoid process possibly extending from the C2 vertebral body detailed above, most compatible with acute fracture. There is minimal marrow edema and suggestion of possible early cortication along the fracture margins. Alignment appears unchanged as compared to prior CT scans. Anterior fusion of C5 and C6. Moderate to advanced degenerative spondylosis otherwise, as detailed above, with multilevel neural foraminal narrowing. (5) Dysphagia: Code(s): R13.10 - Dysphagia, unspecified Status: Acute Assessment and Plan: Patient failed her swallow study prior to surgery. Currently she is getting tube feeds through NG tube I will discuss with speech pathology today and see patient needs a repeat modified barium swallow or we can start modified diet. (6) UTI (urinary tract infection): Code(s): N39.0 - Urinary tract infection, site not specified Status: Resolved Assessment and Plan: See above (7) Seizure disorder: Code(s): G40.909 - Epilepsy, unspecified, not intractable, without status epilepticus Status: Acute Assessment and Plan: History of seizure disorder. Continue Keppra. Currently sedated with Versed 03/28 EEG. IMPRESSION This is an abnormal EEG due to following 1. Nearly continuous focal slow wave activity intermixed with sharp wave transients were seen over left frontal area. This may relate to having previous surgery in this area. Focal slowing is suggestive of underlying structural lesion. Sharp transients are considered nonspecific focal interictal abnormality. Clinical and radiographic correlation are recommended. 2. Mild his background slowing suggestive of generalized encephalopathy (8) Perforation bowel: Code(s): K63.1 - Perforation of intestine (nontraumatic) Status: Acute Assessment and Plan: 03/28 Status post 1. Exploratory laparotomy 2. Sigmoid colon resection with end descending colostomy 3. Ileal resection with [id number] ileal anastomosis NPO Management per General surgery Antibiotics as above (9) Anemia: Code(s): D64.9 - Anemia, unspecified Status: Acute Assessment and Plan: 03/30 Hemoglobin 6.2 this morning likely secondary to surgery and hemodilution. No objective evidence of bleeding at this time. Stool is brown Transfuse 1 unit PRBC and repeat hemoglobin. Coags if you Continue DVT prophylaxis Lovenox at this time. Continue PPI Hemoglobin stable at this time monitor. (10) Superficial vein thrombosis: Code(s): I82.890 - Acute embolism and thrombosis of other specified veins Status: Acute Assessment and Plan: Venous Doppler shows thrombus in the left cephalic and basilic veins and left upper extremity. Continue DVT prophylaxis with Lovenox. Plan patient with c/o abdominal pain had CT scan of the abdomen and pelvic which showed sigmoid diverticulosis with 6.0 x 5.4 x 3.2 cm gas and feculent material containing cavity consistent with a contained bowel perforation which communicates to the sigmoid colon through a 1.8 x 1.3 cm defect in the wall of the colon. patient was seen by surgery service and was taken to the OR on 03/29 and had surgical repair had resection of her intestine and colostomy was placed and the surgery was uneventful, however later in the evening RR was called as patient was unresponsive and was intubated to protect patient airway. on 03/30 patient was extubated and ostomy is functioning now, patient fed via NG tube remain stable off vent in the ICU patient was transferred out of ICU to IMU on 03/31. today patient was seen by speech therapist and swallowing evaluation recommending patient can start puree diet will also continue tube feeding at half the rate to provide sufficient nutrition, there was also concern upon arrival that patient have tonsillars abscess patient was seen by the ENT it seems the abscess is resolved, and will monitor and follow the patient. DVT prophylaxis - SCD, Lovenox Stress ulcer prophylaxis - PPI Nutrition -tube feeds Code Status - Full Code Transfer out ICU today Subjective Date/time seen: 04/02/25 16:15 Interval history: Patient is a 74 year old female admitted for Further evaluation of altered mental status with new onset aphasia dysphagia. 03/28/2025: Patient more alert following commands and no longer aphasic and passed swallow evaluation. Patient however has new fevers peaked at 103.2 with no current known source, considering her symptoms on admission have some concerns for Meningitis. Patient did have some rebound tenderness to ABD palpation no N/V, No BM for 4 days. patient with c/o abdominal pain had CT scan of the abdomen and pelvic which showed sigmoid diverticulosis with 6.0 x 5.4 x 3.2 cm gas and feculent material containing cavity consistent with a contained bowel perforation which communicates to the sigmoid colon through a 1.8 x 1.3 cm defect in the wall of the colon. patient was seen by surgery service and was taken to the OR on 03/29 and had surgical repair had resection of her intestine and colostomy was placed and the surgery was uneventful, however later in the evening RR was called as patient was unresponsive and was intubated to protect patient airway. on 03/30 patient was extubated and ostomy is functioning now, patient fed via NG tube remain stable off vent in the ICU patient was transferred out of ICU to IMU on 03/31. today patient was seen by speech therapist and swallowing evaluation recommending patient can start puree diet will also continue tube feeding at half the rate to provide sufficient nutrition, there was also concern upon arrival that patient have tonsillars abscess patient was seen by the ENT it seems the abscess is resolved, and will monitor and follow the patient. Review of Systems Review of Systems: All systems reviewed & are unremarkable except as noted in HPI and below Exam Narrative: Patient is comfortable, NAD HEENT: NG tube in place LUNGS:CTA HEART: RR S1S2 ABD: BS+, Soft and nontender Lower extremities: no edema SKIN: nonjaundiced Neuro: grossly intact Objective Data Vital Signs Vital Signs: Vital Signs - 24 hr 04/01/25 19:34 04/01/25 20:02 04/01/25 20:20 Temperature 36.3 C L Pulse Rate 95 92 88 Respiratory Rate 20 20 Blood Pressure 161/95 H Pulse Oximetry 100 99 Oxygen Delivery Room Air Fraction of Inspired Oxygen 21 04/01/25 21:31 04/02/25 00:00 04/02/25 00:00 Temperature 36.2 C L Pulse Rate 88 90 90 Respiratory Rate 20 20 Blood Pressure 153/97 H Pulse Oximetry 99 97 Oxygen Delivery Room Air Fraction of Inspired Oxygen 21 04/02/25 04:00 04/02/25 04:00 04/02/25 08:00 Temperature 37.1 C 36.8 C Pulse Rate 82 90 97 Respiratory Rate 16 16 Blood Pressure 113/65 152/85 H Pulse Oximetry 97 98 Oxygen Delivery Fraction of Inspired Oxygen 04/02/25 08:00 04/02/25 08:00 04/02/25 12:00 Temperature 36.4 C Pulse Rate 102 H 102 H Respiratory Rate 16 Blood Pressure 155/107 H Pulse Oximetry 98 Oxygen Delivery Room Air Fraction of Inspired Oxygen 04/02/25 12:00 04/02/25 16:00 Temperature Pulse Rate 101 H 100 Respiratory Rate Blood Pressure Pulse Oximetry Oxygen Delivery Fraction of Inspired Oxygen Intake/Output Intake/Output: Intake & Output 03/30/25 03/31/25 04/01/25 04/02/25 23:59 23:59 23:59 23:59 Intake Total 2303.8 5671 577.3217 Output Total 1250 1875 1045 710 Balance 1053.8 -862 -104.3333 -710 Meds/Results Medications: Active Medications Generic Name Dose Route Start Last Admin Trade Name Freq PRN Reason Stop Dose Admin Acetaminophen 650 mg 03/26/25 14:08 03/31/25 09:39 Acetaminophen 325 Mg Tablet PO 650 mg Q4H PRN Administration Mild Pain (1-3) or Fever Hydrocodone Bitart/Acetaminophen 1 tab 03/31/25 07:54 04/02/25 12:00 Hydrocodone/Acetaminophen (*Crx) 5-325 Mg Tablet PO 1 tab Q4H PRN Administration Pain Rated 4-6 Albuterol/Ipratropium 3 ml 03/30/25 04:29 03/30/25 05:49 Ipratropium 0.5 Mg/Albuterol Sulfate 2.5 Mg Ampul.Neb 3 Ml INHALATION 3 ml Q6HRT PRN Administration Wheezing Enoxaparin Sodium 40 mg 03/29/25 09:00 04/02/25 08:01 Enoxaparin 40 Mg/0.4 Ml Syringe SUB-Q 40 mg DAILY JAYDEN Administration Levetiracetam 1,500 mg in 100 mls @ 400 mls/hr 03/26/25 21:00 04/02/25 11:20 Keppra Iv IVPB 400 mls/hr Q12HR JAYDEN Administration Naloxone HCl 0.1 mg 03/29/25 00:02 Naloxone Hcl 0.4 Mg/Ml Vial IV PUSH Q2M PRN Opiate Reversal Ondansetron HCl 4 mg 03/26/25 14:08 Ondansetron Inj 4 Mg/2 Ml Vial IV PUSH Q6H PRN Nausea And Vomiting Pantoprazole Sodium 40 mg 03/29/25 09:00 04/02/25 08:01 Pantoprazole Sodium Iv 40 Mg Vial IV PUSH 40 mg DAILY JAYDEN Administration Sodium Chloride 10 ml 03/29/25 14:00 04/02/25 05:10 Central Line Flush IV PUSH 10 ml Q8HR JAYDEN Administration Sodium Chloride 10 ml 03/29/25 09:36 Central Line Flush IV PUSH PRN PRN with TPN bag changes Sodium Chloride 20 ml 03/29/25 09:36 Central Line Flush IV PUSH PRN PRN after blood draws Radiology Results: ITS Impressions Modified Barium Swallow 03/27/25 15:26 IMPRESSION: Oropharyngeal dysphagia with intermittent laryngeal penetration with indeterminate/possible minimal aspiration. Please correlate with speech pathologist findings and specific feeding recommendations. Brain MRI 03/27/25 15:28 IMPRESSION: 1. Normal aging brain with minimal periventricular calcific white matter T2 hyperintensity consistent with chronic small vessel ischemic disease. No acute intracranial process. Cervical Spine MRI 03/28/25 08:39 Impression: Fractured the base of the odontoid process possibly extending from the C2 vertebral body detailed above, most compatible with acute fracture. There is minimal marrow edema and suggestion of possible early cortication along the fracture margins. Alignment appears unchanged as compared to prior CT scans. Anterior fusion of C5 and C6. Moderate to advanced degenerative spondylosis otherwise, as detailed above, with multilevel neural foraminal narrowing. Chest/Abdomen/Pelvis CT 03/28/25 11:45 IMPRESSION: 1. Sigmoid diverticulosis with 6.0 x 5.4 x 3.2 cm gas and feculent material containing cavity consistent with a contained bowel perforation which communicates to the sigmoid colon through a 1.8 x 1.3 cm defect in the wall of the colon. 2. Nonobstructing left nephrolithiasis. 3. Mild cardiomegaly. No acute cardiopulmonary disease. Head CT 03/29/25 09:51 IMPRESSION: 1. No acute intracranial process. 2. Age-related changes including mild to moderate diffuse volume loss and mild scattered white matter attenuation consistent with chronic small vessel ischemic disease. 3. Chronic left frontal craniotomy. Venous Doppler Study 03/29/25 11:29 IMPRESSION: 1. Thrombosis of the left cephalic and basilic veins. Abdomen X-Ray 04/01/25 10:44 IMPRESSION: 1. Nasogastric tube in the stomach. Chest X-Ray 04/02/25 06:45 Impression: Clear lungs. Support tubes, as above. Labs Labs: Laboratory Results - last 24 hr 04/01/25 04/02/25 04/02/25 17:54 05:37 07:13 WBC 6.5 RBC 2.80 L Hgb 7.3 L Hct 24.5 L MCV 87.5 MCH 26.1 MCHC 29.8 L RDW 17.1 H Plt Count 202 MPV 10.4 Immature Gran % (Auto) 0.5 Neut % (Auto) 64.4 Lymph % (Auto) 25.1 [place] % (Auto) 7.1 Eos % (Auto) 2.6 Baso % (Auto) 0.3 Lymph # (Auto) 1.62 [place] # (Auto) 0.5 Eos # (Auto) 0.2 Baso # (Auto) 0.0 Abs Immat Gran (auto) 0.03 Absolute Neuts (auto) 4.2 Absolute Nucleated RBC 0.000 Band Neutrophils % Not Reportable Nucleated RBC % 0.0 Platelet Estimate Adequate Hypochromasia 1+ Anisocytosis 1+ Schistocytes None seen Sodium 136 L Potassium 3.6 Chloride 104 Carbon Dioxide 28 Anion Gap 4 BUN 9 Creatinine 0.62 L Estim Creat Clear Calc 66 Estimated GFR > 60 Glucose 149 H POC Capillary Glucose 108 H 155 H Calcium 8.2 L Phosphorus 2.9 Magnesium 1.8 Total Bilirubin 0.2 AST 79 H ALT 38 H Alkaline Phosphatase 172 H Total Protein 7.0 Albumin 2.7 L 04/02/25 11:55 WBC RBC Hgb Hct MCV MCH MCHC RDW Plt Count MPV Immature Gran % (Auto) Neut % (Auto) Lymph % (Auto) [place] % (Auto) Eos % (Auto) Baso % (Auto) Lymph # (Auto) [place] # (Auto) Eos # (Auto) Baso # (Auto) Abs Immat Gran (auto) Absolute Neuts (auto) Absolute Nucleated RBC Band Neutrophils % Nucleated RBC % Platelet Estimate Hypochromasia Anisocytosis Schistocytes Sodium Potassium Chloride Carbon Dioxide Anion Gap BUN Creatinine Estim Creat Clear Calc Estimated GFR Glucose POC Capillary Glucose 146 H Calcium Phosphorus Magnesium Total Bilirubin AST ALT Alkaline Phosphatase Total Protein Albumin
[2025-04-03] VITALS (9 sets, daily range): BP systolic 144–160; BP diastolic 74–91; PULSE 88–101; RESP 16–18; TEMP 36.2–36.6; O2SAT 100; BMI 10.0
[2025-04-03] MEDS: HYDROcodone/acetaminophen (*CRX) 5-325 MG TABLET 1 TAB PO ×5 (04:53→20:54)
[2025-04-03] MEDS: CENTRAL LINE FLUSH 10 ML IV PUSH ×3 (06:06→20:57)
[2025-04-03 06:09] LABS: Basophils Percent Auto 0.6 % (0.2-1.2); Eosinophils Absolute Auto 0.1 K/mm3 (0-0.3); Eosinophils Percent Auto 1.3 % (0-4.4); Hematocrit 24.7 % (37.0-47.0); Hemoglobin 7.5 g/dL (12.0-15.0); Immature Granulocyte Absolute 0.04 K/mm3 (0.00-0.031); Immature Granulocyte Percent A 0.6 % (0-0.5); Lymphocytes Absolute Auto 1.54 K/mm3 (0.9-3.2); Lymphocytes Percent Auto 22.4 % (18.3-44.2); Mean Corpuscular HGB Conc 30.4 g/dl (32-36); Mean Corpuscular Hemoglobin 26.6 pg (26-34); Mean Corpuscular Volume 87.6 fl (80-100); Monocytes Absolute Auto 0.5 K/mm3 (0.1-0.6); Monocytes Percent Auto 7.4 % (2.6-8.5); Neutrophils Absolute Auto 4.7 K/mm3 (1.3-6.7); Neutrophils Percent Auto 67.7 % (45.5-73.1); Platelet Count Result 198 k/mm3 (150-375); Red Blood Count 2.82 M/mm3 (4.2-5.4); White Blood Count 6.9 K/mm3 (4.5-10.0)
[2025-04-03 06:10] LABS: Alanine Aminotransferase 50 U/L (6-35); Albumin Level 2.8 g/dL (3.5-5.1); Alkaline Phosphatase 175 U/L (38-126); Anion Gap 3 mmol/L (4-12); Aspartate Amino Transferase 93 U/L (14-36); Bilirubin,Total 0.3 mg/dL (0.2-1.3); Blood Urea Nitrogen 8 mg/dL (7-17); Calcium 8.4 mg/dL (8.4-10.2); Carbon Dioxide 28 mmol/L (22-30); Chloride 105 mmol/L (98-107); Estimated CRCL calculation 69 ml/min; Estimated Glomerular Filt Rate > 60; Glucose 109 mg/dL (65-110); Magnesium 1.8 mg/dL (1.6-2.3); Phosphorus 2.8 mg/dL (2.5-4.5); Potassium 3.7 mmol/L (3.4-5.0); Sodium 136 mmol/L (137-145)
[2025-04-03] MEDS: levETIRAcetam 1500MG/NACL100ML 1,500 MG/100 ML BAG 400 MG IVPB (08:43)
[2025-04-03] MEDS: ENOXAPARIN 40 MG/0.4 ML SYRINGE SUB-Q (08:44)
[2025-04-03] MEDS: PANTOPRAZOLE SODIUM IV 40 MG VIAL IV PUSH (08:44)
--- NOTE | 2025-04-03 10:17 | P.PNGS_ITS ---
Progress Note: A&P Assessment and Plan (1) Perforation bowel: Code(s): K63.1 - Perforation of intestine (nontraumatic) Status: Acute Assessment and Plan: * Continue IV Zosyn. * Tube feed discontinued as patient pulled out her NG tube. Start puree diet with mildly thickened liquids. 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 * Pathology: diverticular disease with perforation Subjective Subjective Date/Time Seen: 04/03/25 10:17 Interval history: Patient is feeling overall well today with no complaints of abdominal pain aside from minimal incisional pain. No nausea or vomiting. Patient reports that she pulled out her NG tube yesterday. It has not been put back in. Nurse reports that she has only been getting applesauce when taking her crushed medicines due to miscommunication with tube feedings and pureed diet. Pathology insignificant for malignancy. Exam GI: Inspection: non-distended, incision (intact with noah), scar (Lower midline) and other (ostomy pink and functioning) Auscultation: normal bowel sounds and Hypoactive bowel sounds present Other: Colostomy with loose liquid brown stool in bag, stoma pink and viable Objective Data Vital Signs Vital Signs: Vital Signs - 24 hr 04/02/25 12:00 04/02/25 12:00 04/02/25 16:00 Temperature 97.6 F Pulse Rate 102 H 101 H 100 Respiratory Rate 16 Blood Pressure 155/107 H Pulse Oximetry 98 Oxygen Delivery Fraction of Inspired Oxygen 04/02/25 16:00 04/02/25 20:00 04/02/25 20:50 Temperature Pulse Rate 99 97 96 Respiratory Rate 16 16 Blood Pressure 149/98 H Pulse Oximetry 99 100 Oxygen Delivery Room Air Fraction of Inspired Oxygen 21 04/02/25 21:29 04/03/25 00:03 04/03/25 04:00 Temperature 98.3 F Pulse Rate 96 96 101 H Respiratory Rate 16 Blood Pressure 153/75 H Pulse Oximetry 100 Oxygen Delivery Fraction of Inspired Oxygen 04/03/25 04:28 04/03/25 08:51 Temperature 97.8 F 97.8 F Pulse Rate 99 98 Respiratory Rate 18 16 Blood Pressure 148/88 H 147/91 H Pulse Oximetry 100 100 Oxygen Delivery Fraction of Inspired Oxygen Intake/Output Intake/Output: Intake & Output 03/31/25 04/01/25 04/02/2504/03/25 23:59 23:59 23:59 23:59 Intake Total 1551 270.8175 320 320 Output Total 6831 4752 0924 027 [place] [id number] -104.3333 -1040 -180 Meds/Results Medications: Active Medications Generic Name Dose Route Start Last Admin Trade Name Freq PRN Reason Stop Dose Admin Acetaminophen 650 mg 03/26/25 14:08 03/31/25 09:39 Acetaminophen 325 Mg Tablet PO 650 mg Q4H PRN Administration Mild Pain (1-3) or Fever Hydrocodone Bitart/Acetaminophen 1 tab 03/31/25 07:54 04/03/25 08:38 Hydrocodone/Acetaminophen (*Crx) 5-325 Mg Tablet PO 1 tab Q4H PRN Administration Pain Rated 4-6 Albuterol/Ipratropium 3 ml 03/30/25 04:29 03/30/25 05:49 Ipratropium 0.5 Mg/Albuterol Sulfate 2.5 Mg Ampul.Neb 3 Ml INHALATION 3 ml Q6HRT PRN Administration Wheezing Enoxaparin Sodium 40 mg 03/29/25 09:00 04/03/25 08:44 Enoxaparin 40 Mg/0.4 Ml Syringe SUB-Q 40 mg DAILY JAYDEN Administration Levetiracetam 1,500 mg in 100 mls @ 400 mls/hr 03/26/25 21:00 04/03/25 08:58 Keppra Iv IVPB Infused Q12HR JAYDEN Infusion Naloxone HCl 0.1 mg 03/29/25 00:02 Naloxone Hcl 0.4 Mg/Ml Vial IV PUSH Q2M PRN Opiate Reversal Ondansetron HCl 4 mg 03/26/25 14:08 Ondansetron Inj 4 Mg/2 Ml Vial IV PUSH Q6H PRN Nausea And Vomiting Pantoprazole Sodium 40 mg 03/29/25 09:00 04/03/25 08:44 Pantoprazole Sodium Iv 40 Mg Vial IV PUSH 40 mg DAILY JAYDEN Administration Sodium Chloride 10 ml 03/29/25 14:00 04/03/25 06:06 Central Line Flush IV PUSH 10 ml Q8HR JAYDEN Administration Sodium Chloride 10 ml 03/29/25 09:36 Central Line Flush IV PUSH PRN PRN with TPN bag changes Sodium Chloride 20 ml 03/29/25 09:36 Central Line Flush IV PUSH PRN PRN after blood draws Radiology Results: ITS Impressions Modified Barium Swallow 03/27/25 15:26 IMPRESSION: Oropharyngeal dysphagia with intermittent laryngeal penetration with indeterminate/possible minimal aspiration. Please correlate with speech pathologist findings and specific feeding recommendations. Brain MRI 03/27/25 15:28 IMPRESSION: 1. Normal aging brain with minimal periventricular calcific white matter T2 hyperintensity consistent with chronic small vessel ischemic disease. No acute intracranial process. Cervical Spine MRI 03/28/25 08:39 Impression: Fractured the base of the odontoid process possibly extending from the C2 vertebral body detailed above, most compatible with acute fracture. There is minimal marrow edema and suggestion of possible early cortication along the fracture margins. Alignment appears unchanged as compared to prior CT scans. Anterior fusion of C5 and C6. Moderate to advanced degenerative spondylosis otherwise, as detailed above, with multilevel neural foraminal narrowing. Chest/Abdomen/Pelvis CT 03/28/25 11:45 IMPRESSION: 1. Sigmoid diverticulosis with 6.0 x 5.4 x 3.2 cm gas and feculent material containing cavity consistent with a contained bowel perforation which communicates to the sigmoid colon through a 1.8 x 1.3 cm defect in the wall of the colon. 2. Nonobstructing left nephrolithiasis. 3. Mild cardiomegaly. No acute cardiopulmonary disease. Head CT 03/29/25 09:51 IMPRESSION: 1. No acute intracranial process. 2. Age-related changes including mild to moderate diffuse volume loss and mild scattered white matter attenuation consistent with chronic small vessel ischemic disease. 3. Chronic left frontal craniotomy. Venous Doppler Study 03/29/25 11:29 IMPRESSION: 1. Thrombosis of the left cephalic and basilic veins. Abdomen X-Ray 04/01/25 10:44 IMPRESSION: 1. Nasogastric tube in the stomach. Chest X-Ray 04/03/25 06:10 Impression: Clear lungs. Stable prominence of the superior mediastinum. Stable support line. Labs Labs: Laboratory Results - last 24 hr 04/02/25 04/03/25 11:55 05:43 WBC 6.9 RBC 2.82 L Hgb 7.5 L Hct 24.7 L MCV 87.6 MCH 26.6 MCHC 30.4 L RDW 17.0 H Plt Count 198 MPV 11.0 H Immature Gran % (Auto) 0.6 H Neut % (Auto) 67.7 Lymph % (Auto) 22.4 [place] % (Auto) 7.4 Eos % (Auto) 1.3 Baso % (Auto) 0.6 Lymph # (Auto) 1.54 [place] # (Auto) 0.5 Eos # (Auto) 0.1 Baso # (Auto) 0.0 Abs Immat Gran (auto) 0.04 H Absolute Neuts (auto) 4.7 Absolute Nucleated RBC 0.000 Nucleated RBC % 0.0 Sodium 136 L Potassium 3.7 Chloride 105 Carbon Dioxide 28 Anion Gap 3 L BUN 8 Creatinine 0.59 L Estim Creat Clear Calc 69 Estimated GFR > 60 Glucose 109 POC Capillary Glucose 146 H Calcium 8.4 Phosphorus 2.8 Magnesium 1.8 Total Bilirubin 0.3 AST 93 H ALT 50 H Alkaline Phosphatase 175 H Total Protein 7.0 Albumin 2.8 L
--- NOTE | 2025-04-03 13:57 | PM.IMPN ---
Progress Note: A&P Assessment and Plan (1) Acute respiratory failure: Code(s): J96.00 - Acute respiratory failure, unspecified whether with hypoxia or hypercapnia Status: Acute Assessment and Plan: Acute Respiratory failure secondary to altered mental status and inability to protect airway Patient was intubated and extubated on03/30 Currently on room air Avoid sedatives Incentive spirometry patient can do it Bronchodilators (2) Sepsis: Code(s): A41.9 - Sepsis, unspecified organism Status: Acute Assessment and Plan: Sepsis secondary to bowel perforation, peritonitis, UTI Blood and urine cultures have been ordered and pending Continue Zosyn Patient received 2 L fluid bolus. Hold further IV fluid (3) Altered mental status: Code(s): R41.82 - Altered mental status, unspecified Status: Acute Assessment and Plan: Patient presented with altered mental status. Patient also has history of seizure disorder and may have had seizure and be postictal. Other possibilities are sepsis as she had a perforated bowel and UTI Overnight rapid response could be secondary to deterioration of mental status from Dilaudid. MRI brain done on 03/27 did not showed any acute CVA and showed 1. Normal aging brain with minimal periventricular calcific white matter T2 hyperintensity consistent with chronic small vessel ischemic disease. No acute intracranial process EEG as below Recent TSH was normal Normal ammonia Sedation held and now patient is following commands and moving all 4 extremities Neurology following Avoid sedatives and monitor. (4) C2 cervical fracture: Code(s): S12.100A - Unspecified displaced fracture of second cervical vertebra, initial encounter for closed fracture Status: Inactive Assessment and Plan: Patient had a C2 fracture from fall few weeks ago. Patient was evaluated by Neurosurgery. MRI C-spine done on this hospitalization showed following She currently in a soft C-collar. Impression: Fractured the base of the odontoid process possibly extending from the C2 vertebral body detailed above, most compatible with acute fracture. There is minimal marrow edema and suggestion of possible early cortication along the fracture margins. Alignment appears unchanged as compared to prior CT scans. Anterior fusion of C5 and C6. Moderate to advanced degenerative spondylosis otherwise, as detailed above, with multilevel neural foraminal narrowing. (5) Dysphagia: Code(s): R13.10 - Dysphagia, unspecified Status: Acute Assessment and Plan: Patient failed her swallow study prior to surgery. Currently she is getting tube feeds through NG tube I will discuss with speech pathology today and see patient needs a repeat modified barium swallow or we can start modified diet. (6) UTI (urinary tract infection): Code(s): N39.0 - Urinary tract infection, site not specified Status: Resolved Assessment and Plan: See above (7) Seizure disorder: Code(s): G40.909 - Epilepsy, unspecified, not intractable, without status epilepticus Status: Acute Assessment and Plan: History of seizure disorder. Continue Keppra. Currently sedated with Versed 03/28 EEG. IMPRESSION This is an abnormal EEG due to following 1. Nearly continuous focal slow wave activity intermixed with sharp wave transients were seen over left frontal area. This may relate to having previous surgery in this area. Focal slowing is suggestive of underlying structural lesion. Sharp transients are considered nonspecific focal interictal abnormality. Clinical and radiographic correlation are recommended. 2. Mild his background slowing suggestive of generalized encephalopathy (8) Perforation bowel: Code(s): K63.1 - Perforation of intestine (nontraumatic) Status: Acute Assessment and Plan: 03/28 Status post 1. Exploratory laparotomy 2. Sigmoid colon resection with end descending colostomy 3. Ileal resection with [id number] ileal anastomosis NPO Management per General surgery Antibiotics as above (9) Anemia: Code(s): D64.9 - Anemia, unspecified Status: Acute Assessment and Plan: 03/30 Hemoglobin 6.2 this morning likely secondary to surgery and hemodilution. No objective evidence of bleeding at this time. Stool is brown Transfuse 1 unit PRBC and repeat hemoglobin. Coags if you Continue DVT prophylaxis Lovenox at this time. Continue PPI Hemoglobin stable at this time monitor. (10) Superficial vein thrombosis: Code(s): I82.890 - Acute embolism and thrombosis of other specified veins Status: Acute Assessment and Plan: Venous Doppler shows thrombus in the left cephalic and basilic veins and left upper extremity. Continue DVT prophylaxis with Lovenox. Plan patient with c/o abdominal pain had CT scan of the abdomen and pelvic which showed sigmoid diverticulosis with 6.0 x 5.4 x 3.2 cm gas and feculent material containing cavity consistent with a contained bowel perforation which communicates to the sigmoid colon through a 1.8 x 1.3 cm defect in the wall of the colon. patient was seen by surgery service and was taken to the OR on 03/29 and had surgical repair had resection of her intestine and colostomy was placed and the surgery was uneventful, however later in the evening RR was called as patient was unresponsive and was intubated to protect patient airway. on 03/30 patient was extubated and ostomy is functioning now, patient fed via NG tube remain stable off vent in the ICU patient was transferred out of ICU to IMU on 03/31. today patient was seen by speech therapist and swallowing evaluation recommending patient can start puree diet will also continue tube feeding at half the rate to provide sufficient nutrition, however on 04/02 patient pulled out NG tube and refused to put NG tube back, today patient stats felling better encourage to eat more to sufficient calories to help heal the wound. will monitor. there was also concern upon arrival that patient have tonsillars abscess patient was seen by the ENT it seems the abscess is resolved, and will monitor and follow the patient. DVT prophylaxis - SCD, Lovenox Stress ulcer prophylaxis - PPI Nutrition -tube feeds Code Status - Full Code Transfer out ICU today Subjective Date/time seen: 04/03/25 13:57 Interval history: Patient is a 74 year old female admitted for Further evaluation of altered mental status with new onset aphasia dysphagia. 03/28/2025: Patient more alert following commands and no longer aphasic and passed swallow evaluation. Patient however has new fevers peaked at 103.2 with no current known source, considering her symptoms on admission have some concerns for Meningitis. Patient did have some rebound tenderness to ABD palpation no N/V, No BM for 4 days. patient with c/o abdominal pain had CT scan of the abdomen and pelvic which showed sigmoid diverticulosis with 6.0 x 5.4 x 3.2 cm gas and feculent material containing cavity consistent with a contained bowel perforation which communicates to the sigmoid colon through a 1.8 x 1.3 cm defect in the wall of the colon. patient was seen by surgery service and was taken to the OR on 03/29 and had surgical repair had resection of her intestine and colostomy was placed and the surgery was uneventful, however later in the evening RR was called as patient was unresponsive and was intubated to protect patient airway. on 03/30 patient was extubated and ostomy is functioning now, patient fed via NG tube remain stable off vent in the ICU patient was transferred out of ICU to IMU on 03/31. today patient was seen by speech therapist and swallowing evaluation recommending patient can start puree diet will also continue tube feeding at half the rate to provide sufficient nutrition, however on 04/02 patient pulled out NG tube and refused to put NG tube back, today patient stats felling better encourage to eat more to sufficient calories to help heal the wound. will monitor. there was also concern upon arrival that patient have tonsillars abscess patient was seen by the ENT it seems the abscess is resolved, and will monitor and follow the patient. Review of Systems Review of Systems: All systems reviewed & are unremarkable except as noted in HPI and below Exam Narrative: Patient is comfortable, NAD HEENT: eyes are clear and none icteric LUNGS:CTA HEART: RR S1S2 ABD: BS+, Soft and nontender Lower extremities: no edema SKIN: nonjaundiced Neuro: grossly intact. Objective Data Vital Signs Vital Signs: Vital Signs - 24 hr 04/02/25 16:00 04/02/25 16:00 04/02/25 20:00 Temperature Pulse Rate 100 99 97 Respiratory Rate 16 Blood Pressure 149/98 H Pulse Oximetry 99 Oxygen Delivery Fraction of Inspired Oxygen 04/02/25 20:50 04/02/25 21:29 04/03/25 00:03 Temperature 36.8 C Pulse Rate 96 96 96 Respiratory Rate 16 16 Blood Pressure 153/75 H Pulse Oximetry 100 100 Oxygen Delivery Room Air Fraction of Inspired Oxygen 04/03/25 04:00 04/03/25 04:28 04/03/25 08:51 Temperature 36.6 C 36.6 C Pulse Rate 101 H 99 98 Respiratory Rate 18 16 Blood Pressure 148/88 H 147/91 H Pulse Oximetry 100 100 Oxygen Delivery Fraction of Inspired Oxygen 04/03/25 12:00 04/03/25 12:15 Temperature 36.2 C L Pulse Rate 98 Respiratory Rate 18 Blood Pressure 144/80 H Pulse Oximetry 100 Oxygen Delivery Room Air Fraction of Inspired Oxygen Intake/Output Intake/Output: Intake & Output 03/31/25 04/01/25 04/02/25 04/03/25 23:59 23:59 23:59 23:59 Intake Total 9567 462.3722 320 440 Output Total 1875 1045 1360 500 Balance -862 -104.3333 -1040 -60 Meds/Results Medications: Active Medications Generic Name Dose Route Start Last Admin Trade Name Freq PRN Reason Stop Dose Admin Acetaminophen 650 mg 05/21/25 14:08 03/31/25 09:39 Acetaminophen 325 Mg Tablet PO 650 mg Q4H PRN Administration Mild Pain (1-3) or Fever Hydrocodone Bitart/Acetaminophen 1 tab 03/31/25 07:54 04/03/25 12:50 Hydrocodone/Acetaminophen (*Crx) 5-325 Mg Tablet PO 1 tab Q4H PRN Administration Pain Rated 4-6 Albuterol/Ipratropium 3 ml 03/30/25 04:29 03/30/25 05:49 Ipratropium 0.5 Mg/Albuterol Sulfate 2.5 Mg Ampul.Neb 3 Ml INHALATION 3 ml Q6HRT PRN Administration Wheezing Enoxaparin Sodium 40 mg 03/29/25 09:00 04/03/25 08:44 Enoxaparin 40 Mg/0.4 Ml Syringe SUB-Q 40 mg DAILY JAYDEN Administration Levetiracetam 1,500 mg in 100 mls @ 400 mls/hr 03/26/25 21:00 04/03/25 08:58 Keppra Iv IVPB Infused Q12HR JAYDEN Infusion Naloxone HCl 0.1 mg 03/29/25 00:02 Naloxone Hcl 0.4 Mg/Ml Vial IV PUSH Q2M PRN Opiate Reversal Ondansetron HCl 4 mg 03/26/25 14:08 Ondansetron Inj 4 Mg/2 Ml Vial IV PUSH Q6H PRN Nausea And Vomiting Pantoprazole Sodium 40 mg 03/29/25 09:00 04/03/25 08:44 Pantoprazole Sodium Iv 40 Mg Vial IV PUSH 40 mg DAILY JAYDEN Administration Sodium Chloride 10 ml 03/29/25 14:00 04/03/25 12:51 Central Line Flush IV PUSH 10 ml Q8HR JAYDEN Administration Sodium Chloride 10 ml 03/29/25 09:36 Central Line Flush IV PUSH PRN PRN with TPN bag changes Sodium Chloride 20 ml 03/29/25 09:36 Central Line Flush IV PUSH PRN PRN after blood draws Radiology Results: ITS Impressions Modified Barium Swallow 03/27/25 15:26 IMPRESSION: Oropharyngeal dysphagia with intermittent laryngeal penetration with indeterminate/possible minimal aspiration. Please correlate with speech pathologist findings and specific feeding recommendations. Brain MRI 03/27/25 15:28 IMPRESSION: 1. Normal aging brain with minimal periventricular calcific white matter T2 hyperintensity consistent with chronic small vessel ischemic disease. No acute intracranial process. Cervical Spine MRI 03/28/25 08:39 Impression: Fractured the base of the odontoid process possibly extending from the C2 vertebral body detailed above, most compatible with acute fracture. There is minimal marrow edema and suggestion of possible early cortication along the fracture margins. Alignment appears unchanged as compared to prior CT scans. Anterior fusion of C5 and C6. Moderate to advanced degenerative spondylosis otherwise, as detailed above, with multilevel neural foraminal narrowing. Chest/Abdomen/Pelvis CT 03/28/25 11:45 IMPRESSION: 1. Sigmoid diverticulosis with 6.0 x 5.4 x 3.2 cm gas and feculent material containing cavity consistent with a contained bowel perforation which communicates to the sigmoid colon through a 1.8 x 1.3 cm defect in the wall of the colon. 2. Nonobstructing left nephrolithiasis. 3. Mild cardiomegaly. No acute cardiopulmonary disease. Head CT 03/29/25 09:51 IMPRESSION: 1. No acute intracranial process. 2. Age-related changes including mild to moderate diffuse volume loss and mild scattered white matter attenuation consistent with chronic small vessel ischemic disease. 3. Chronic left frontal craniotomy. Venous Doppler Study 03/29/25 11:29 IMPRESSION: 1. Thrombosis of the left cephalic and basilic veins. Abdomen X-Ray 04/01/25 10:44 IMPRESSION: 1. Nasogastric tube in the stomach. Chest X-Ray 04/03/25 06:10 Impression: Clear lungs. Stable prominence of the superior mediastinum. Stable support line. Labs Labs: Laboratory Results - last 24 hr 04/03/25 05:43 WBC 6.9 RBC 2.82 L Hgb 7.5 L Hct 24.7 L MCV 87.6 MCH 26.6 MCHC 30.4 L RDW 17.0 H Plt Count 198 MPV 11.0 H Immature Gran % (Auto) 0.6 H Neut % (Auto) 67.7 Lymph % (Auto) 22.4 [place] % (Auto) 7.4 Eos % (Auto) 1.3 Baso % (Auto) 0.6 Lymph # (Auto) 1.54 [place] # (Auto) 0.5 Eos # (Auto) 0.1 Baso # (Auto) 0.0 Abs Immat Gran (auto) 0.04 H Absolute Neuts (auto) 4.7 Absolute Nucleated RBC 0.000 Nucleated RBC % 0.0 Sodium 136 L Potassium 3.7 Chloride 105 Carbon Dioxide 28 Anion Gap 3 L BUN 8 Creatinine 0.59 L Estim Creat Clear Calc 69 Estimated GFR > 60 Glucose 109 Calcium 8.4 Phosphorus 2.8 Magnesium 1.8 Total Bilirubin 0.3 AST 93 H ALT 50 H Alkaline Phosphatase 175 H Total Protein 7.0 Albumin 2.8 L Quality VTE Prophylaxis VTE prophylaxis: mechanical ordered and pharmacologic ordered
[2025-04-03 17:53] LABS: West Nile Virus, IgM <0.90 index
[2025-04-03] MEDS: levETIRAcetam 1500MG/NACL100ML 1,500 MG/100 ML BAG 100 MG IVPB (20:56)
[2025-04-04] VITALS (9 sets, daily range): BP systolic 146–156; BP diastolic 80–83; PULSE 89–100; RESP 16–20; TEMP 36.3–36.8; O2SAT 100
[2025-04-04] MEDS: HYDROcodone/acetaminophen (*CRX) 5-325 MG TABLET 1 TAB PO ×4 (08:29→23:45)
[2025-04-04] MEDS: PANTOPRAZOLE SODIUM IV 40 MG VIAL IV PUSH (08:31)
[2025-04-04] MEDS: levETIRAcetam 1500MG/NACL100ML 1,500 MG/100 ML BAG 400 MG IVPB (08:31)
[2025-04-04] MEDS: ENOXAPARIN 40 MG/0.4 ML SYRINGE SUB-Q (08:31)
--- NOTE | 2025-04-04 11:07 | PCNFU ---
Nutrition Follow-Up Complete: Inadequate energy intake related to altered GI function, mechanical ventilation as evidenced by NPO Goal:Meet estimated nutrition needs when medically able Pt current nutrition is Pureed level 4, mildly thick liquids level 2, Ensure enlive TID. Nutrition recommendation: continue with current plan of care Last recorded weight is 79.3 kg. Bowel Motility: +BM 04/04 Labs Reviewed: Hgb:7.5, HCt:24.7, Alb:2.8, NA:136, Cr:0.59 Meds Noted: protonix Skin: WNL Additional Notes: Pt no longer with tube feedings, evaluated by speech with recommendations for a pureed diet with mildly thick liquids. Pt tolerating diet well, intake 25% at this time, pt states she is eating and drinking good. Encouraged po intake. Monitoring orders, plan of care, weights, labs, intake. Follow up in 5 days
--- NOTE | 2025-04-04 11:36 | PCOTNOTE ---
Attempted to see Patient at this time. Patient able to verbalize more this session. Patient states she had PT and all she can do today, I just laid back down, no more.
[2025-04-04] MEDS: CENTRAL LINE FLUSH 10 ML IV PUSH (14:05)
--- NOTE | 2025-04-04 14:05 | P.PNIM_ITS ---
Progress Note: A&P Assessment and Plan (1) Acute respiratory failure: Code(s): J96.00 - Acute respiratory failure, unspecified whether with hypoxia or hypercapnia Status: Acute Assessment and Plan: Acute Respiratory failure secondary to altered mental status and inability to protect airway Patient was intubated and extubated on03/30 Currently on room air Avoid sedatives Incentive spirometry patient can do it Bronchodilators (2) Sepsis: Code(s): A41.9 - Sepsis, unspecified organism Status: Acute Assessment and Plan: Sepsis secondary to bowel perforation, peritonitis, UTI Blood and urine cultures have been ordered no growth Continue Zosyn and completed treatment Sepsis resolved (3) Altered mental status: Code(s): R41.82 - Altered mental status, unspecified Status: Acute Assessment and Plan: Patient presented with altered mental status. Patient also has history of seizure disorder and may have had seizure and be postictal. Other possibilities are sepsis as she had a perforated bowel and UTI Overnight rapid response could be secondary to deterioration of mental status from Dilaudid. MRI brain done on 03/27 did not showed any acute CVA and showed 1. Normal aging brain with minimal periventricular calcific white matter T2 hyperintensity consistent with chronic small vessel ischemic disease. No acute intracranial process EEG as below Recent TSH was normal Normal ammonia Sedation held and now patient is following commands and moving all 4 extremities Neurology following Avoid sedatives and monitor. (4) C2 cervical fracture: Code(s): S12.100A - Unspecified displaced fracture of second cervical vertebra, initial encounter for closed fracture Status: Inactive Assessment and Plan: Patient had a C2 fracture from fall few weeks ago. Patient was evaluated by Neurosurgery. MRI C-spine done on this hospitalization showed following She currently in a soft C-collar. Impression: Fractured the base of the odontoid process possibly extending from the C2 vertebral body detailed above, most compatible with acute fracture. There is minimal marrow edema and suggestion of possible early cortication along the fracture margins. Alignment appears unchanged as compared to prior CT scans. Anterior fusion of C5 and C6. Moderate to advanced degenerative spondylosis otherwise, as detailed above, with multilevel neural foraminal narrowing. Continue C-collar at all times (5) Dysphagia: Code(s): R13.10 - Dysphagia, unspecified Status: Acute Assessment and Plan: Patient failed her swallow study prior to surgery. Currently she is getting tube feeds through NG tube Speech Therapy following. Started on oral diet and tolerating (6) UTI (urinary tract infection): Code(s): N39.0 - Urinary tract infection, site not specified Status: Resolved Assessment and Plan: See above (7) Seizure disorder: Code(s): G40.909 - Epilepsy, unspecified, not intractable, without status epilepticus Status: Acute Assessment and Plan: History of seizure disorder. Continue Keppra. Currently sedated with Versed 03/28 EEG. IMPRESSION This is an abnormal EEG due to following 1. Nearly continuous focal slow wave activity intermixed with sharp wave transients were seen over left frontal area. This may relate to having previous surgery in this area. Focal slowing is suggestive of underlying structural lesion. Sharp transients are considered nonspecific focal interictal abnormality. Clinical and radiographic correlation are recommended. 2. Mild his background slowing suggestive of generalized encephalopathy (8) Perforation bowel: Code(s): K63.1 - Perforation of intestine (nontraumatic) Status: Acute Assessment and Plan: 03/28 Status post 1. Exploratory laparotomy 2. Sigmoid colon resection with end descending colostomy 3. Ileal resection with [id number] ileal anastomosis Management per General surgery Antibiotics as above completed course (9) Anemia: Code(s): D64.9 - Anemia, unspecified Status: Acute Assessment and Plan: 03/30 Hemoglobin 6.2 this morning likely secondary to surgery and hemodilution. No objective evidence of bleeding at this time. Stool is brown Transfuse 1 unit PRBC and repeat hemoglobin. Coags if you Continue DVT prophylaxis Lovenox at this time. Continue PPI Hemoglobin stable at this time monitor. (10) Superficial vein thrombosis: Code(s): I82.890 - Acute embolism and thrombosis of other specified veins Status: Acute Assessment and Plan: Venous Doppler shows thrombus in the left cephalic and basilic veins and left upper extremity. Continue DVT prophylaxis with Lovenox. Plan patient with c/o abdominal pain had CT scan of the abdomen and pelvic which showed sigmoid diverticulosis with 6.0 x 5.4 x 3.2 cm gas and feculent material containing cavity consistent with a contained bowel perforation which communicates to the sigmoid colon through a 1.8 x 1.3 cm defect in the wall of the colon. patient was seen by surgery service and was taken to the OR on 03/29 and had surgical repair had resection of her intestine and colostomy was placed and the surgery was uneventful, however later in the evening RR was called as patient was unresponsive and was intubated to protect patient airway. on 03/30 patient was extubated and ostomy is functioning now, patient fed via NG tube remain stable off vent in the ICU patient was transferred out of ICU to IMU on 03/31. Patient was seen by speech therapist and swallowing evaluation recommending patient can start puree diet will also continue tube feeding at half the rate to provide sufficient nutrition, however on 04/02 patient pulled out NG tube and refused to put NG tube back, ENT consulted for concern for tonsillar abscess. Disposition plan to go to [place] [facility]/swing bed. Continue PT OT to see DVT prophylaxis - SCD, Lovenox Stress ulcer prophylaxis - PPI Nutrition -tube feeds Code Status - Full Code Subjective Date/time seen: 04/04/25 14:05 Interval history: Chart reviewed. On oral diet now. Denies any new symptoms. Working with physical therapy and improving. Review of Systems Review of Systems: All systems reviewed & are unremarkable except as noted in HPI and below Exam Narrative: Patient is comfortable, NAD HEENT: eyes are clear and none icteric LUNGS:CTA HEART: RR S1S2 ABD: BS+, Soft and nontender midline suture with colostomy bag in place Lower extremities: no edema SKIN: nonjaundiced Neuro: grossly intact. Objective Data Vital Signs Vital Signs: Vital Signs - 24 hr 04/03/25 16:00 04/03/25 16:00 04/03/25 19:59 Temperature 97.5 F L 97.8 F Pulse Rate 94 93 88 Respiratory Rate 18 16 Blood Pressure 160/87 H 144/74 H Pulse Oximetry 100 100 Oxygen Delivery Fraction of Inspired Oxygen 04/03/25 20:00 04/04/25 00:00 04/04/25 04:00 Temperature Pulse Rate 88 89 89 Respiratory Rate 16 Blood Pressure Pulse Oximetry 100 Oxygen Delivery Room Air Fraction of Inspired Oxygen 21 04/04/25 04:36 04/04/25 08:00 04/04/25 12:00 Temperature 97.4 F L Pulse Rate 90 94 95 Respiratory Rate 16 Blood Pressure 146/80 H Pulse Oximetry 100 Oxygen Delivery Fraction of Inspired Oxygen Intake/Output Intake/Output: Intake & Output 04/01/25 04/02/25 04/03/25 04/04/25 23:59 23:59 23:59 23:59 Intake Total 940.6667 320 780 730 Output Total 1746 1360 875 320 [facility] -104.3333 -1040 -95 410 Meds/Results Medications: Active Medications Generic Name Dose Route Start Last Admin Trade Name Freq PRN Reason Stop Dose Admin Acetaminophen 650 mg 03/26/25 14:08 03/31/25 09:39 Acetaminophen 325 Mg Tablet PO 650 mg Q4H PRN Administration Mild Pain (1-3) or Fever Hydrocodone Bitart/Acetaminophen 1 tab 03/31/25 07:54 04/04/25 13:56 Hydrocodone/Acetaminophen (*Crx) 5-325 Mg Tablet PO 1 tab Q4H PRN Administration Pain Rated 4-6 Albuterol/Ipratropium 3 ml 03/30/25 04:29 03/30/25 05:49 Ipratropium 0.5 Mg/Albuterol Sulfate 2.5 Mg Ampul.Neb 3 Ml INHALATION 3 ml Q6HRT PRN Administration Wheezing Enoxaparin Sodium 40 mg 03/29/25 09:00 04/04/25 08:31 Enoxaparin 40 Mg/0.4 Ml Syringe SUB-Q 40 mg DAILY JAYDEN Administration Levetiracetam 1,500 mg in 100 mls @ 400 mls/hr 03/26/25 21:00 04/04/25 08:46 Keppra Iv IVPB Infused Q12HR JAYDEN Infusion Naloxone HCl 0.1 mg 03/29/25 00:02 Naloxone Hcl 0.4 Mg/Ml Vial IV PUSH Q2M PRN Opiate Reversal Ondansetron HCl 4 mg 03/26/25 14:08 Ondansetron Inj 4 Mg/2 Ml Vial IV PUSH Q6H PRN Nausea And Vomiting Pantoprazole Sodium 40 mg 03/29/25 09:00 04/04/25 08:31 Pantoprazole Sodium Iv 40 Mg Vial IV PUSH 40 mg DAILY JAYDEN Administration Sodium Chloride 10 ml 03/29/25 14:00 04/04/25 07:35 Central Line Flush IV PUSH Not Given Q8HR JAYDEN Sodium Chloride 10 ml 03/29/25 09:36 Central Line Flush IV PUSH PRN PRN with TPN bag changes Sodium Chloride 20 ml 03/29/25 09:36 Central Line Flush IV PUSH PRN PRN after blood draws Radiology Results: ITS Impressions Modified Barium Swallow 03/27/25 15:26 IMPRESSION: Oropharyngeal dysphagia with intermittent laryngeal penetration with indeterminate/possible minimal aspiration. Please correlate with speech pathologist findings and specific feeding recommendations. Brain MRI 03/27/25 15:28 IMPRESSION: 1. Normal aging brain with minimal periventricular calcific white matter T2 hyperintensity consistent with chronic small vessel ischemic disease. No acute intracranial process. Cervical Spine MRI 03/28/25 08:39 Impression: Fractured the base of the odontoid process possibly extending from the C2 vertebral body detailed above, most compatible with acute fracture. There is mi nimal marrow edema and suggestion of possible early cortication along the fracture margins. Alignment appears unchanged as compared to prior CT scans. Anterior fusion of C5 and C6. Moderate to advanced degenerative spondylosis otherwise, as detailed above, with multilevel neural foraminal narrowing. Chest/Abdomen/Pelvis CT 03/28/25 11:45 IMPRESSION: 1. Sigmoid diverticulosis with 6.0 x 5.4 x 3.2 cm gas and feculent material containing cavity consistent with a contained bowel perforation which communicates to the sigmoid colon through a 1.8 x 1.3 cm defect in the wall of the colon. 2. Nonobstructing left nephrolithiasis. 3. Mild cardiomegaly. No acute cardiopulmonary disease. Head CT 03/29/25 09:51 IMPRESSION: 1. No acute intracranial process. 2. Age-related changes including mild to moderate diffuse volume loss and mild scattered white matter attenuation consistent with chronic small vessel ischemic disease. 3. Chronic left frontal craniotomy. Venous Doppler Study 03/29/25 11:29 IMPRESSION: 1. Thrombosis of the left cephalic and basilic veins. Abdomen X-Ray 04/01/25 10:44 IMPRESSION: 1. Nasogastric tube in the stomach. Labs Labs: Laboratory Results - last 24 hr 03/28/25 08:48 West Nile Virus IgM Ab <0.90
--- NOTE | 2025-04-04 14:43 | P.PNGS_ITS ---
Progress Note: A&P Assessment and Plan (1) Perforation bowel: Code(s): K63.1 - Perforation of intestine (nontraumatic) Status: Acute Assessment and Plan: * Surgically stable. Ostomy functioning. OK to discharge once adequate PO intake and medically stable. Will see PRN. Subjective Subjective Date/Time Seen: 04/04/25 14:43 Interval history: Tolerating diet. Pain minimal. Ostomy functioning. No nausea/vomiting. Exam GI: Inspection: non-distended, incision (intact with noah), scar (Lower midline) and other (ostomy pink and functioning) Auscultation: normal bowel sounds and Hypoactive bowel sounds present Other: Colostomy with loose liquid brown stool in bag, stoma pink and viable Objective Data Vital Signs Vital Signs: Vital Signs - 24 hr 04/03/25 16:00 04/03/25 16:00 04/03/25 19:59 Temperature 97.5 F L 97.8 F Pulse Rate 94 93 88 Respiratory Rate 18 16 Blood Pressure 160/87 H 144/74 H Pulse Oximetry 100 100 Oxygen Delivery Fraction of Inspired Oxygen 04/03/25 20:00 04/04/25 00:00 04/04/25 04:00 Temperature Pulse Rate 88 89 89 Respiratory Rate 16 Blood Pressure Pulse Oximetry 100 Oxygen Delivery Room Air Fraction of Inspired Oxygen 21 04/04/25 04:36 04/04/25 08:00 04/04/25 12:00 Temperature 97.4 F L Pulse Rate 90 94 95 Respiratory Rate 16 Blood Pressure 146/80 H Pulse Oximetry 100 Oxygen Delivery Fraction of Inspired Oxygen Intake/Output Intake/Output: Intake & Output 04/01/25 04/02/25 04/03/25 04/04/25 23:59 23:59 23:59 23:59 Intake Total 940.6667 320 780 730 Output Total 1045 1360 875 320 Balance -104.3333 -1040 -95 410 Meds/Results Medications: Active Medications Generic Name Dose Route Start Last Admin Trade Name Freq PRN Reason Stop Dose Admin Acetaminophen 1,000 mg 04/04/25 14:11 Acetaminophen 500 Mg Tablet PO Q6H PRN fever or pain Hydrocodone Bitart/Acetaminophen 1 tab 03/31/25 07:54 04/04/25 13:56 Hydrocodone/Acetaminophen (*Crx) 5-325 Mg Tablet PO 1 tab Q4H PRN Administration Pain Rated 4-6 Albuterol/Ipratropium 3 ml 03/30/25 04:29 03/30/25 05:49 Ipratropium 0.5 Mg/Albuterol Sulfate 2.5 Mg Ampul.Neb 3 Ml INHALATION 3 ml Q6HRT PRN Administration Wheezing Enoxaparin Sodium 40 mg 03/29/25 09:00 04/04/25 08:31 Enoxaparin 40 Mg/0.4 Ml Syringe SUB-Q 40 mg DAILY JAYDEN Administration Levetiracetam 1,500 mg 04/04/25 21:00 Levetiracetam Oral [place] 500 Mg/5 Ml Udc PO Q12HR JAYDEN Naloxone HCl 0.1 mg 03/29/25 00:02 Naloxone Hcl 0.4 Mg/Ml Vial IV PUSH Q2M PRN Opiate Reversal Ondansetron HCl 4 mg 03/26/25 14:08 Ondansetron Inj 4 Mg/2 Ml Vial IV PUSH Q6H PRN Nausea And Vomiting Pantoprazole Sodium 40 mg 04/05/25 09:00 Pantoprazole 40 Mg Tablet PO QAM JAYDEN Sodium Chloride 10 ml 03/29/25 14:00 04/04/25 14:05 Central Line Flush IV PUSH 10 ml Q8HR JAYDEN Administration Sodium Chloride 10 ml 03/29/25 09:36 Central Line Flush IV PUSH PRN PRN with TPN bag changes Sodium Chloride 20 ml 03/29/25 09:36 Central Line Flush IV PUSH PRN PRN after blood draws Radiology Results: ITS Impressions Modified Barium Swallow 03/27/25 15:26 IMPRESSION: Oropharyngeal dysphagia with intermittent laryngeal penetration with indeterminate/possible minimal aspiration. Please correlate with speech pathologist findings and specific feeding recommendations. Brain MRI 03/27/25 15:28 IMPRESSION: 1. Normal aging brain with minimal periventricular calcific white matter T2 hyperintensity consistent with chronic small vessel ischemic disease. No acute intracranial process. Cervical Spine MRI 03/28/25 08:39 Impression: Fractured the base of the odontoid process possibly extending from the C2 vertebral body detailed above, most compatible with acute fracture. There is minimal marrow edema and suggestion of possible early cortication along the fracture margins. Alignment appears unchanged as compared to prior CT scans. Anterior fusion of C5 and C6. Moderate to advanced degenerative spondylosis otherwise, as detailed above, with multilevel neural foraminal narrowing. Chest/Abdomen/Pelvis CT 03/28/25 11:45 IMPRESSION: 1. Sigmoid diverticulosis with 6.0 x 5.4 x 3.2 cm gas and feculent material containing cavity consistent with a contained bowel perforation which communicates to the sigmoid colon through a 1.8 x 1.3 cm defect in the wall of the colon. 2. Nonobstructing left nephrolithiasis. 3. Mild cardiomegaly. No acute cardiopulmonary disease. Head CT 03/29/25 09:51 IMPRESSION: 1. No acute intracranial process. 2. Age-related changes including mild to moderate diffuse volume loss and mild scattered white matter attenuation consistent with chronic small vessel ischemic disease. 3. Chronic left frontal craniotomy. Venous Doppler Study 03/29/25 11:29 IMPRESSION: 1. Thrombosis of the left cephalic and basilic veins. Abdomen X-Ray 04/01/25 10:44 IMPRESSION: 1. Nasogastric tube in the stomach. Chest X-Ray 04/04/25 14:06 IMPRESSION: Inadvertent withdrawal of the previously identified PICC line, which now projects over the right subclavian vein, as detailed above. Labs Labs: Laboratory Results - last 24 hr 03/28/25 08:48 West Nile Virus IgM Ab <0.90
[2025-04-04] MEDS: levETIRAcetam ORAL SOL 500 MG/5 ML UDC 1500 MG PO (20:36)
[2025-04-05] VITALS (10 sets, daily range): BP systolic 144–149; BP diastolic 79–85; PULSE 87–98; RESP 16–20; TEMP 36.3–36.6; O2SAT 97–100
--- NOTE | 2025-04-05 00:28 | PC.NURSE ---
Pt non-compliant w/ continuous use of C-collar, pt is confused and unable to comprehend importance of brace. C-collar will be placed on patient when turning or moving patient, positioned in bed with pillow neck support at this time.
[2025-04-05] MEDS: HYDROcodone/acetaminophen (*CRX) 5-325 MG TABLET 1 TAB PO ×4 (05:22→23:44)
[2025-04-05 05:40] LABS: Basophils Percent Auto 0.8 % (0.2-1.2); Eosinophils Absolute Auto 0.1 K/mm3 (0-0.3); Eosinophils Percent Auto 2.3 % (0-4.4); Hematocrit 26.9 % (37.0-47.0); Hemoglobin 8.2 g/dL (12.0-15.0); Immature Granulocyte Absolute 0.05 K/mm3 (0.00-0.031); Lymphocytes Absolute Auto 1.41 K/mm3 (0.9-3.2); Lymphocytes Percent Auto 29.1 % (18.3-44.2); Mean Corpuscular HGB Conc 30.5 g/dl (32-36); Mean Corpuscular Hemoglobin 26.5 pg (26-34); Mean Corpuscular Volume 87.1 fl (80-100); Mean Platelet Volume 11.2 fl (7.4-10.4); Monocytes Absolute Auto 0.4 K/mm3 (0.1-0.6); Monocytes Percent Auto 8.3 % (2.6-8.5); Neutrophils Absolute Auto 2.8 K/mm3 (1.3-6.7); Neutrophils Percent Auto 58.5 % (45.5-73.1); Platelet Count Result 254 k/mm3 (150-375); Red Blood Count 3.09 M/mm3 (4.2-5.4); Red Cell Distribution Width 17.6 % (11.5-14.5); White Blood Count 4.8 K/mm3 (4.5-10.0)
[2025-04-05 06:00] LABS: Alanine Aminotransferase 58 U/L (6-35); Albumin Level 3.1 g/dL (3.5-5.1); Alkaline Phosphatase 218 U/L (38-126); Anion Gap 6 mmol/L (4-12); Aspartate Amino Transferase 77 U/L (14-36); Bilirubin,Total 0.3 mg/dL (0.2-1.3); Blood Urea Nitrogen 9 mg/dL (7-17); Calcium 8.7 mg/dL (8.4-10.2); Carbon Dioxide 27 mmol/L (22-30); Chloride 104 mmol/L (98-107); Estimated CRCL calculation 71 ml/min; Estimated Glomerular Filt Rate > 60; Glucose 112 mg/dL (65-110); Potassium 3.6 mmol/L (3.4-5.0); Sodium 137 mmol/L (137-145)
[2025-04-05] MEDS: ACETAMINOPHEN 500 MG TABLET 1000 MG PO (08:35)
[2025-04-05] MEDS: PANTOPRAZOLE 40 MG TABLET PO (08:38)
[2025-04-05] MEDS: levETIRAcetam ORAL SOL 500 MG/5 ML UDC 1500 MG PO ×2 (08:40→21:33)
[2025-04-05] MEDS: ENOXAPARIN 40 MG/0.4 ML SYRINGE SUB-Q ×2 (08:40→13:21)
--- NOTE | 2025-04-05 12:44 | PCSTNOTE ---
ST attempted to do a speech therapy treatment this date with the pt. The pt stated that she was resting and would like ST to come back tomorrow. ST will attempt treatment session tomorrow. Thank you.
[2025-04-05] MEDS: CENTRAL LINE FLUSH 10 ML IV PUSH ×2 (12:58→21:34)
--- NOTE | 2025-04-05 12:59 | P.PNIM_ITS ---
Progress Note: A&P Assessment and Plan (1) Acute respiratory failure: Code(s): J96.00 - Acute respiratory failure, unspecified whether with hypoxia or hypercapnia Status: Acute Assessment and Plan: Acute Respiratory failure secondary to altered mental status and inability to protect airway Patient was intubated and extubated on03/30 Currently on room air Avoid sedatives Incentive spirometry patient can do it Bronchodilators (2) Sepsis: Code(s): A41.9 - Sepsis, unspecified organism Status: Acute Assessment and Plan: Sepsis secondary to bowel perforation, peritonitis, UTI Blood and urine cultures have been ordered no growth Continue Zosyn and completed treatment Sepsis resolved (3) Altered mental status: Code(s): R41.82 - Altered mental status, unspecified Status: Acute Assessment and Plan: Patient presented with altered mental status. Patient also has history of seizure disorder and may have had seizure and be postictal. Other possibilities are sepsis as she had a perforated bowel and UTI Overnight rapid response could be secondary to deterioration of mental status from Dilaudid. MRI brain done on 03/27 did not showed any acute CVA and showed 1. Normal aging brain with minimal periventricular calcific white matter T2 hyperintensity consistent with chronic small vessel ischemic disease. No acute intracranial process EEG as below Recent TSH was normal Normal ammonia Sedation held and now patient is following commands and moving all 4 extremities Neurology following Avoid sedatives and monitor. (4) C2 cervical fracture: Code(s): S12.100A - Unspecified displaced fracture of second cervical vertebra, initial encounter for closed fracture Status: Inactive Assessment and Plan: Patient had a C2 fracture from fall few weeks ago. Patient was evaluated by Neurosurgery. MRI C-spine done on this hospitalization showed following She currently in a soft C-collar. Impression: Fractured the base of the odontoid process possibly extending from the C2 vertebral body detailed above, most compatible with acute fracture. There is minimal marrow edema and suggestion of possible early cortication along the fracture margins. Alignment appears unchanged as compared to prior CT scans. Anterior fusion of C5 and C6. Moderate to advanced degenerative spondylosis otherwise, as detailed above, with multilevel neural foraminal narrowing. Continue C-collar at all times (5) Dysphagia: Code(s): R13.10 - Dysphagia, unspecified Status: Acute Assessment and Plan: Patient failed her swallow study prior to surgery. Currently she is getting tube feeds through NG tube Speech Therapy following. Started on oral diet and tolerating (6) UTI (urinary tract infection): Code(s): N39.0 - Urinary tract infection, site not specified Status: Resolved Assessment and Plan: See above (7) Seizure disorder: Code(s): G40.909 - Epilepsy, unspecified, not intractable, without status epilepticus Status: Acute Assessment and Plan: History of seizure disorder. Continue Keppra. Currently sedated with Versed 03/28 EEG. IMPRESSION This is an abnormal EEG due to following 1. Nearly continuous focal slow wave activity intermixed with sharp wave transients were seen over left frontal area. This may relate to having previous surgery in this area. Focal slowing is suggestive of underlying structural lesion. Sharp transients are considered nonspecific focal interictal abnormality. Clinical and radiographic correlation are recommended. 2. Mild his background slowing suggestive of generalized encephalopathy (8) Perforation bowel: Code(s): K63.1 - Perforation of intestine (nontraumatic) Status: Acute Assessment and Plan: 03/28 Status post 1. Exploratory laparotomy 2. Sigmoid colon resection with end descending colostomy 3. Ileal resection with [id number] ileal anastomosis Management per General surgery Antibiotics as above completed course (9) Anemia: Code(s): D64.9 - Anemia, unspecified Status: Acute Assessment and Plan: 03/30 Hemoglobin 6.2 this morning likely secondary to surgery and hemodilution. No objective evidence of bleeding at this time. Stool is brown Transfuse 1 unit PRBC and repeat hemoglobin. Coags if you Continue DVT prophylaxis Lovenox at this time. Continue PPI Hemoglobin stable at this time monitor. Despite being on DVT prophylaxis now has DVT likely PICC line associated. Will switch to therapeutic Lovenox (10) Superficial vein thrombosis: Code(s): I82.890 - Acute embolism and thrombosis of other specified veins Status: Acute Assessment and Plan: Venous Doppler shows thrombus in the left cephalic and basilic veins and left upper extremity. Continue DVT prophylaxis with Lovenox. Despite being on DVT prophylaxis now has DVT likely PICC line associated. Will switch to therapeutic Lovenox Plan patient with c/o abdominal pain had CT scan of the abdomen and pelvic which showed sigmoid diverticulosis with 6.0 x 5.4 x 3.2 cm gas and feculent material containing cavity consistent with a contained bowel perforation which communicates to the sigmoid colon through a 1.8 x 1.3 cm defect in the wall of the colon. patient was seen by surgery service and was taken to the OR on 03/29 and had surgical repair had resection of her intestine and colostomy was placed and the surgery was uneventful, however later in the evening RR was called as patient was unresponsive and was intubated to protect patient airway. on 03/30 patient was extubated and ostomy is functioning now, patient fed via NG tube remain stable off vent in the ICU patient was transferred out of ICU to IMU on 03/31. Patient was seen by speech therapist and swallowing evaluation recommending patient can start puree diet will also continue tube feeding at half the rate to provide sufficient nutrition, however on 04/02 patient pulled out NG tube and refused to put NG tube back, ENT consulted for concern for tonsillar abscess. Disposition plan to go to [facility] bed. Continue PT OT to see DVT prophylaxis - SCD, Lovenox Stress ulcer prophylaxis - PPI Nutrition -tube feeds Code Status - Full Code Subjective Date/time seen: 04/05/25 12:59 Interval history: Right arm swelling reported. Venous duplex came back positive for DVT. PICC line in situ. No chest pain shortness of breath. Eating some. Denies any abdominal pain Review of Systems Review of Systems: All systems reviewed & are unremarkable except as noted in HPI and below Exam Narrative: Patient is comfortable, NAD HEENT: eyes are clear and none icteric LUNGS:CTA HEART: RR S1S2 ABD: BS+, Soft and nontender midline suture with colostomy bag in place Lower extremities: no edema right upper extremity swelling noted. PICC line in situ SKIN: nonjaundiced Neuro: grossly intact. Objective Data Vital Signs Vital Signs: Vital Signs - 24 hr 04/04/25 15:00 04/04/25 16:00 04/04/25 20:00 Temperature Pulse Rate 99 100 Respiratory Rate 20 Blood Pressure 156/83 H Pulse Oximetry 100 Oxygen Delivery Room Air 04/04/25 20:00 04/04/25 20:08 04/05/25 00:00 Temperature 98.3 F Pulse Rate 100 92 98 Respiratory Rate 18 Blood Pressure 154/82 H Pulse Oximetry 100 Oxygen Delivery 04/05/25 04:00 04/05/25 05:44 Temperature 97.3 F L Pulse Rate 94 88 Respiratory Rate 16 Blood Pressure 144/80 H Pulse Oximetry 97 Oxygen Delivery Intake/Output Intake/Output: Intake & Output 04/02/25 04/03/25 04/04/25 04/05/25 23:59 23:59 23:59 23:59 Intake Total 320 780 830 530 Output Total 1360 875 770 700 [facility] -1040 -95 60 -170 Meds/Results Medications: Active Medications Generic Name Dose Route Start Last Admin Trade Name Freq PRN Reason Stop Dose Admin Acetaminophen 1,000 mg 04/04/25 14:11 04/05/25 08:35 Acetaminophen 500 Mg Tablet PO 1,000 mg Q6H PRN Administration fever or pain Hydrocodone Bitart/Acetaminophen 1 tab 03/31/25 07:54 04/05/25 05:22 Hydrocodone/Acetaminophen (*Crx) 5-325 Mg Tablet PO 1 tab Q4H PRN Administration Pain Rated 4-6 Albuterol/Ipratropium 3 ml 03/30/25 04:29 03/30/25 05:49 Ipratropium 0.5 Mg/Albuterol Sulfate 2.5 Mg Ampul.Neb 3 Ml INHALATION 3 ml Q6HRT PRN Administration Wheezing Enoxaparin Sodium 40 mg 03/29/25 09:00 04/05/25 08:40 Enoxaparin 40 Mg/0.4 Ml Syringe SUB-Q 40 mg DAILY JAYDEN Administration Levetiracetam 1,500 mg 04/04/25 21:00 04/05/25 08:40 Levetiracetam Oral [place] 500 Mg/5 Ml Udc PO 1,500 mg Q12HR JAYDEN Administration Naloxone HCl 0.1 mg 03/29/25 00:02 Naloxone Hcl 0.4 Mg/Ml Vial IV PUSH Q2M PRN Opiate Reversal Ondansetron HCl 4 mg 03/26/25 14:08 Ondansetron Inj 4 Mg/2 Ml Vial IV PUSH Q6H PRN Nausea And Vomiting Pantoprazole Sodium 40 mg 04/05/25 09:00 04/05/25 08:38 Pantoprazole 40 Mg Tablet PO 40 mg QAM JAYDEN Administration Sodium Chloride 10 ml 03/29/25 14:00 04/05/25 12:58 Central Line Flush IV PUSH 10 ml Q8HR JAYDEN Administration Sodium Chloride 10 ml 03/29/25 09:36 Central Line Flush IV PUSH PRN PRN with TPN bag changes Sodium Chloride 20 ml 03/29/25 09:36 Central Line Flush IV PUSH PRN PRN after blood draws Radiology Results: ITS Impressions Modified Barium Swallow 03/27/25 15:26 IMPRESSION: Oropharyngeal dysphagia with intermittent laryngeal penetration with indeterminate/possible minimal aspiration. Please correlate with speech pathologist findings and specific feeding recommendations. Brain MRI 03/27/25 15:28 IMPRESSION: 1. Normal aging brain with minimal periventricular calcific white matter T2 hyperintensity consistent with chronic small vessel ischemic disease. No acute intracranial process. Cervical Spine MRI 03/28/25 08:39 Impression: Fractured the base of the odontoid process possibly extending from the C2 vertebral body detailed above, most compatible with acute fracture. There is minimal marrow edema and suggestion of possible early cortication along the fracture margins. Alignment appears unchanged as compared to prior CT scans. Anterior fusion of C5 and C6. Moderate to advanced degenerative spondylosis otherwise, as detailed above, with multilevel neural foraminal narrowing. Chest/Abdomen/Pelvis CT 03/28/25 11:45 IMPRESSION: 1. Sigmoid diverticulosis with 6.0 x 5.4 x 3.2 cm gas and feculent material containing cavity consistent with a contained bowel perforation which comm unicates to the sigmoid colon through a 1.8 x 1.3 cm defect in the wall of the colon. 2. Nonobstructing left nephrolithiasis. 3. Mild cardiomegaly. No acute cardiopulmonary disease. Head CT 03/29/25 09:51 IMPRESSION: 1. No acute intracranial process. 2. Age-related changes including mild to moderate diffuse volume loss and mild scattered white matter attenuation consistent with chronic small vessel ischemic disease. 3. Chronic left frontal craniotomy. Abdomen X-Ray 04/01/25 10:44 IMPRESSION: 1. Nasogastric tube in the stomach. Chest X-Ray 04/04/25 14:06 IMPRESSION: Inadvertent withdrawal of the previously identified PICC line, which now projects over the right subclavian vein, as detailed above. Venous Doppler Study 04/05/25 11:34 IMPRESSION: 1. Bilateral upper extremity venous thrombosis with deep venous thrombosis of the right subclavian and axillary veins. Labs Labs: Laboratory Results - last 24 hr 04/05/25 05:13 WBC 4.8 RBC 3.09 L Hgb 8.2 L Hct 26.9 L MCV 87.1 MCH 26.5 MCHC 30.5 L RDW 17.6 H Plt Count 254 MPV 11.2 H Immature Gran % (Auto) 1.0 H Neut % (Auto) 58.5 Lymph % (Auto) 29.1 [place] % (Auto) 8.3 Eos % (Auto) 2.3 Baso % (Auto) 0.8 Lymph # (Auto) 1.41 [place] # (Auto) 0.4 Eos # (Auto) 0.1 Baso # (Auto) 0.0 Abs Immat Gran (auto) 0.05 H Absolute Neuts (auto) 2.8 Absolute Nucleated RBC 0.000 Nucleated RBC % 0.0 Sodium 137 Potassium 3.6 Chloride 104 Carbon Dioxide 27 Anion Gap 6 BUN 9 Creatinine 0.57 L Estim Creat Clear Calc 71 Estimated GFR > 60 Glucose 112 H Calcium 8.7 Magnesium 2.0 Total Bilirubin 0.3 AST 77 H ALT 58 H Alkaline Phosphatase 218 H Total Protein 8.0 Albumin 3.1 L
[2025-04-05] MEDS: SIMETHICONE 80 MG TAB.CHEW PO ×2 (17:46→23:03)
[2025-04-05] MEDS: ENOXAPARIN 80 MG/0.8 ML SYRINGE SUB-Q (21:34)
[2025-04-06] VITALS (11 sets, daily range): BP systolic 149–153; BP diastolic 78–87; PULSE 85–102; RESP 18–20; TEMP 36.4–36.7; O2SAT 98–100
[2025-04-06 05:19] LABS: Basophils Percent Auto 0.4 % (0.2-1.2); Eosinophils Absolute Auto 0.1 K/mm3 (0-0.3); Eosinophils Percent Auto 2.8 % (0-4.4); Hematocrit 26.3 % (37.0-47.0); Hemoglobin 7.9 g/dL (12.0-15.0); Immature Granulocyte Absolute 0.03 K/mm3 (0.00-0.031); Immature Granulocyte Percent A 0.6 % (0-0.5); Lymphocytes Absolute Auto 1.75 K/mm3 (0.9-3.2); Lymphocytes Percent Auto 35.5 % (18.3-44.2); Mean Corpuscular Hemoglobin 26.4 pg (26-34); Mean Platelet Volume 10.5 fl (7.4-10.4); Monocytes Absolute Auto 0.4 K/mm3 (0.1-0.6); Monocytes Percent Auto 8.5 % (2.6-8.5); Neutrophils Absolute Auto 2.6 K/mm3 (1.3-6.7); Neutrophils Percent Auto 52.2 % (45.5-73.1); Platelet Count Result 243 k/mm3 (150-375); Red Blood Count 2.99 M/mm3 (4.2-5.4); Red Cell Distribution Width 17.5 % (11.5-14.5); White Blood Count 4.9 K/mm3 (4.5-10.0)
[2025-04-06 05:30] LABS: Alanine Aminotransferase 45 U/L (6-35); Albumin Level 2.9 g/dL (3.5-5.1); Alkaline Phosphatase 215 U/L (38-126); Anion Gap 5 mmol/L (4-12); Aspartate Amino Transferase 50 U/L (14-36); Bilirubin,Total 0.2 mg/dL (0.2-1.3); Blood Urea Nitrogen 9 mg/dL (7-17); Calcium 8.5 mg/dL (8.4-10.2); Carbon Dioxide 29 mmol/L (22-30); Chloride 104 mmol/L (98-107); Estimated CRCL calculation 71 ml/min; Estimated Glomerular Filt Rate > 60; Glucose 99 mg/dL (65-110); Magnesium 2.1 mg/dL (1.6-2.3); Potassium 3.7 mmol/L (3.4-5.0); Sodium 138 mmol/L (137-145)
[2025-04-06] MEDS: HYDROcodone/acetaminophen (*CRX) 5-325 MG TABLET 1 TAB PO ×3 (05:38→15:43)
[2025-04-06] MEDS: SIMETHICONE 80 MG TAB.CHEW PO ×2 (05:46→11:59)
[2025-04-06] MEDS: CENTRAL LINE FLUSH 10 ML IV PUSH ×3 (06:13→21:41)
[2025-04-06] MEDS: ACETAMINOPHEN 500 MG TABLET 1000 MG PO ×3 (08:38→21:41)
[2025-04-06] MEDS: PANTOPRAZOLE 40 MG TABLET PO (08:38)
[2025-04-06] MEDS: ENOXAPARIN 80 MG/0.8 ML SYRINGE SUB-Q ×2 (08:39→20:42)
[2025-04-06] MEDS: levETIRAcetam ORAL SOL 500 MG/5 ML UDC 1500 MG PO ×2 (08:39→20:42)
--- NOTE | 2025-04-06 17:16 | PM.IMPN ---
Progress Note: A&P Assessment and Plan (1) Acute respiratory failure: Code(s): J96.00 - Acute respiratory failure, unspecified whether with hypoxia or hypercapnia Status: Acute Assessment and Plan: Acute Respiratory failure secondary to altered mental status and inability to protect airway Patient was intubated and extubated on03/30 Currently on room air Avoid sedatives Incentive spirometry patient can do it Bronchodilators (2) Sepsis: Code(s): A41.9 - Sepsis, unspecified organism Status: Acute Assessment and Plan: Sepsis secondary to bowel perforation, peritonitis, UTI Blood and urine cultures have been ordered no growth Continue Zosyn and completed treatment Sepsis resolved (3) Altered mental status: Code(s): R41.82 - Altered mental status, unspecified Status: Acute Assessment and Plan: Patient presented with altered mental status. Patient also has history of seizure disorder and may have had seizure and be postictal. Other possibilities are sepsis as she had a perforated bowel and UTI Overnight rapid response could be secondary to deterioration of mental status from Dilaudid. MRI brain done on 03/27 did not showed any acute CVA and showed 1. Normal aging brain with minimal periventricular calcific white matter T2 hyperintensity consistent with chronic small vessel ischemic disease. No acute intracranial process EEG as below Recent TSH was normal Normal ammonia Sedation held and now patient is following commands and moving all 4 extremities Neurology following Avoid sedatives and monitor. (4) C2 cervical fracture: Code(s): S12.100A - Unspecified displaced fracture of second cervical vertebra, initial encounter for closed fracture Status: Inactive Assessment and Plan: Patient had a C2 fracture from fall few weeks ago. Patient was evaluated by Neurosurgery. MRI C-spine done on this hospitalization showed following She currently in a soft C-collar. Impression: Fractured the base of the odontoid process possibly extending from the C2 vertebral body detailed above, most compatible with acute fracture. There is minimal marrow edema and suggestion of possible early cortication along the fracture margins. Alignment appears unchanged as compared to prior CT scans. Anterior fusion of C5 and C6. Moderate to advanced degenerative spondylosis otherwise, as detailed above, with multilevel neural foraminal narrowing. Continue C-collar at all times (5) Dysphagia: Code(s): R13.10 - Dysphagia, unspecified Status: Acute Assessment and Plan: Patient failed her swallow study prior to surgery. Currently she is getting tube feeds through NG tube Speech Therapy following. Started on oral diet and tolerating (6) UTI (urinary tract infection): Code(s): N39.0 - Urinary tract infection, site not specified Status: Resolved Assessment and Plan: See above (7) Seizure disorder: Code(s): G40.909 - Epilepsy, unspecified, not intractable, without status epilepticus Status: Acute Assessment and Plan: History of seizure disorder. Continue Keppra. Currently sedated with Versed 03/28 EEG. IMPRESSION This is an abnormal EEG due to following 1. Nearly continuous focal slow wave activity intermixed with sharp wave transients were seen over left frontal area. This may relate to having previous surgery in this area. Focal slowing is suggestive of underlying structural lesion. Sharp transients are considered nonspecific focal interictal abnormality. Clinical and radiographic correlation are recommended. 2. Mild his background slowing suggestive of generalized encephalopathy (8) Perforation bowel: Code(s): K63.1 - Perforation of intestine (nontraumatic) Status: Acute Assessment and Plan: 03/28 Status post 1. Exploratory laparotomy 2. Sigmoid colon resection with end descending colostomy 3. Ileal resection with [id number] ileal anastomosis Management per General surgery Antibiotics as above completed course (9) Anemia: Code(s): D64.9 - Anemia, unspecified Status: Acute Assessment and Plan: 03/30 Hemoglobin 6.2 this morning likely secondary to surgery and hemodilution. No objective evidence of bleeding at this time. Stool is brown Transfuse 1 unit PRBC and repeat hemoglobin. Coags if you Continue DVT prophylaxis Lovenox at this time. Continue PPI Hemoglobin stable at this time monitor. Despite being on DVT prophylaxis now has DVT likely PICC line associated. Will switch to therapeutic Lovenox (10) Superficial vein thrombosis: Code(s): I82.890 - Acute embolism and thrombosis of other specified veins Status: Acute Assessment and Plan: Venous Doppler shows thrombus in the left cephalic and basilic veins and left upper extremity. Continue DVT prophylaxis with Lovenox. Despite being on DVT prophylaxis now has DVT likely PICC line associated. Will switch to therapeutic Lovenox (11) DVT (deep venous thrombosis): Code(s): I82.409 - Acute embolism and thrombosis of unspecified deep veins of unspecified lower extremity Status: Acute Assessment and Plan: Venous Doppler shows thrombus in the left cephalic and basilic veins and left upper extremity. Continue DVT prophylaxis with Lovenox. Despite being on DVT prophylaxis now has DVT likely PICC line associated. Will switch to therapeutic Lovenox (12) Depression: Code(s): F32.A - Depression, unspecified Status: Acute Assessment and Plan: ongoing. lacks motivation will add ssri Plan patient with c/o abdominal pain had CT scan of the abdomen and pelvic which showed sigmoid diverticulosis with 6.0 x 5.4 x 3.2 cm gas and feculent material containing cavity consistent with a contained bowel perforation which communicates to the sigmoid colon through a 1.8 x 1.3 cm defect in the wall of the colon. patient was seen by surgery service and was taken to the OR on 03/29 and had surgical repair had resection of her intestine and colostomy was placed and the surgery was uneventful, however later in the evening RR was called as patient was unresponsive and was intubated to protect patient airway. on 03/30 patient was extubated and ostomy is functioning now, patient fed via NG tube remain stable off vent in the ICU patient was transferred out of ICU to IMU on 03/31. Patient was seen by speech therapist and swallowing evaluation recommending patient can start puree diet will also continue tube feeding at half the rate to provide sufficient nutrition, however on 04/02 patient pulled out NG tube and refused to put NG tube back, ENT consulted for concern for tonsillar abscess. Disposition plan to go to [facility] bed. Continue PT OT to see DVT prophylaxis - SCD, Lovenox Stress ulcer prophylaxis - PPI Nutrition -tube feeds Code Status - Full Code Subjective Date/time seen: 04/06/25 17:16 Interval history: had abd cramping yesterday, feels better. she is not eating much. she lacks motivation. feels depressed. Review of Systems Review of Systems: All systems reviewed & are unremarkable except as noted in HPI and below Exam Narrative: Patient is comfortable, NAD HEENT: eyes are clear and none icteric LUNGS:CTA HEART: RR S1S2 ABD: BS+, Soft and nontender midline suture with colostomy bag in place Lower extremities: no edema right upper extremity swelling noted. PICC line in situ SKIN: nonjaundiced Neuro: grossly intact. Objective Data Vital Signs Vital Signs: Vital Signs - 24 hr 04/05/25 20:00 04/05/25 20:00 04/05/25 21:23 Temperature Pulse Rate 87 89 Respiratory Rate 20 Blood Pressure Pulse Oximetry 100 97 Oxygen Delivery Room Air Room Air Fraction of Inspired Oxygen 21 04/05/25 22:00 04/06/25 00:00 04/06/25 04:00 Temperature 97.9 F Pulse Rate 96 94 85 Respiratory Rate 18 Blood Pressure 149/85 H Pulse Oximetry 100 Oxygen Delivery Fraction of Inspired Oxygen 04/06/25 06:00 04/06/25 08:00 04/06/25 08:00 Temperature 97.6 F Pulse Rate 92 91 Respiratory Rate 18 Blood Pressure 149/78 H Pulse Oximetry 100 Oxygen Delivery Room Air Fraction of Inspired Oxygen 04/06/25 12:00 04/06/25 13:42 04/06/25 14:00 Temperature 97.6 F 97.7 F Pulse Rate 100 90 Respiratory Rate 18 Blood Pressure 153/83 H Pulse Oximetry 100 Oxygen Delivery Fraction of Inspired Oxygen Intake/Output Intake/Output: Intake & Output 04/03/25 04/04/25 04/05/25 04/06/25 23:59 23:59 23:59 23:59 Intake Total 780 830 770 600 Output Total 214 389 7187 1375 Balance -95 60 -269 -365 Meds/Results Medications: Active Medications Generic Name Dose Route Start Last Admin Trade Name Freq PRN Reason Stop Dose Admin Acetaminophen 1,000 mg 04/04/25 14:11 04/06/25 13:42 Acetaminophen 500 Mg Tablet PO 1,000 mg Q6H PRN Administration fever or pain Hydrocodone Bitart/Acetaminophen 1 tab 03/31/25 07:54 04/06/25 15:43 Hydrocodone/Acetaminophen (*Crx) 5-325 Mg Tablet PO 1 tab Q4H PRN Administration Pain Rated 4-6 Albuterol/Ipratropium 3 ml 03/30/25 04:29 03/30/25 05:49 Ipratropium 0.5 Mg/Albuterol Sulfate 2.5 Mg Ampul.Neb 3 Ml INHALATION 3 ml Q6HRT PRN Administration Wheezing Enoxaparin Sodium 80 mg 04/05/25 22:00 04/06/25 08:39 Enoxaparin 80 Mg/0.8 Ml Syringe SUB-Q 80 mg Q12HR JAYDEN Administration Levetiracetam 1,500 mg 04/04/25 21:00 04/06/25 08:39 Levetiracetam Oral [place] 500 Mg/5 Ml Udc PO 1,500 mg Q12HR JAYDEN Administration Naloxone HCl 0.1 mg 03/29/25 00:02 Naloxone Hcl 0.4 Mg/Ml Vial IV PUSH Q2M PRN Opiate Reversal Ondansetron HCl 4 mg 03/26/25 14:08 Ondansetron Inj 4 Mg/2 Ml Vial IV PUSH Q6H PRN Nausea And Vomiting Pantoprazole Sodium 40 mg 04/05/25 09:00 04/06/25 08:38 Pantoprazole 40 Mg Tablet PO 40 mg QAM JAYDEN Administration Simethicone 80 mg 04/05/25 17:41 04/06/25 11:59 Simethicone 80 Mg Tab.Chew PO 80 mg QID PRN Administration Gas Discomfort Sodium Chloride 10 ml 03/29/25 14:00 04/06/25 15:44 Central Line Flush IV PUSH 10 ml Q8HR JAYDEN Administration Sodium Chloride 10 ml 03/29/25 09:36 Central Line Flush IV PUSH PRN PRN with TPN bag changes Sodium Chloride 20 ml 03/29/25 09:36 Central Line Flush IV PUSH PRN PRN after blood draws Radiology Results: ITS Impressions Modified Barium Swallow 03/27/25 15:26 IMPRESSION: Oropharyngeal dysphagia with intermittent laryngeal penetration with indeterminate/possible minimal aspiration. Please correlate with speech pathologist findings and specific feeding recommendations. Brain MRI 03/27/25 15:28 IMPRESSION: 1. Normal aging brain with minimal periventricular calcific white matter T2 hyperintensity consistent with chronic small vessel ischemic disease. No acute intracranial process. Cervical Spine MRI 03/28/25 08:39 Impression: Fractured the base of the odontoid process possibly extending from the C2 vertebral body detailed above, most compatible with acute fracture. There is minimal marrow edema and suggestion of possible early cortication along the fracture margins. Alignment appears unchanged as compared to prior CT scans. Anterior fusion of C5 and C6. Moderate to advanced degenerative spondylosis otherwise, as detailed above, with multilevel neural foraminal narrowing. Chest/Abdomen/Pelvis CT 03/28/25 11:45 IMPRESSION: 1. Sigmoid diverticulosis with 6.0 x 5.4 x 3.2 cm gas and feculent material containing cavity consistent with a contained bowel perforation which communicates to the sigmoid colon through a 1.8 x 1.3 cm defect in the wall of the colon. 2. Nonobstructing left nephrolithiasis. 3. Mild cardiomegaly. No acute cardiopulmonary disease. Head CT 03/29/25 09:51 IMPRESSION: 1. No acute intracranial process. 2. Age-related changes including mild to moderate diffuse volume loss and mild scattered white matter attenuation consistent with chronic small vessel ischemic disease. 3. Chronic left frontal craniotomy. Abdomen X-Ray 04/01/25 10:44 IMPRESSION: 1. Nasogastric tube in the stomach. Chest X-Ray 04/04/25 14:06 IMPRESSION: Inadvertent withdrawal of the previously identified PICC line, which now projects over the right subclavian vein, as detailed above. Venous Doppler Study 04/05/25 11:34 IMPRESSION: 1. Bilateral upper extremity venous thrombosis with deep venous thrombosis of the right subclavian and axillary veins. Labs Labs: Laboratory Results - last 24 hr 04/06/25 04:56 WBC 4.9 RBC 2.99 L Hgb 7.9 L Hct 26.3 L MCV 88.0 MCH 26.4 MCHC 30.0 L RDW 17.5 H Plt Count 243 MPV 10.5 H Immature Gran % (Auto) 0.6 H Neut % (Auto) 52.2 Lymph % (Auto) 35.5 [place] % (Auto) 8.5 Eos % (Auto) 2.8 Baso % (Auto) 0.4 Lymph # (Auto) 1.75 [place] # (Auto) 0.4 Eos # (Auto) 0.1 Baso # (Auto) 0.0 Abs Immat Gran (auto) 0.03 Absolute Neuts (auto) 2.6 Absolute Nucleated RBC 0.000 Nucleated RBC % 0.0 Sodium 138 Potassium 3.7 Chloride 104 Carbon Dioxide 29 Anion Gap 5 BUN 9 Creatinine 0.57 L Estim Creat Clear Calc 71 Estimated GFR > 60 Glucose 99 Calcium 8.5 Magnesium 2.1 Total Bilirubin 0.2 AST 50 H ALT 45 H Alkaline Phosphatase 215 H Total Protein 7.0 Albumin 2.9 L
[2025-04-06] MEDS: SERTRALINE HCL 25 MG TABLET PO (20:41)
[2025-04-06] MEDS: MIRTAZAPINE 7.5 MG TABLET PO (20:42)
[2025-04-07] MEDS: HYDROcodone/acetaminophen (*CRX) 5-325 MG TABLET 1 TAB PO ×3 (04:31→20:28)
[2025-04-07] MEDS: CENTRAL LINE FLUSH 10 ML IV PUSH ×3 (04:32→20:32)
[2025-04-07 06:00] VITALS: BP 145/88; PULSE 87; RESP 18; TEMP 36.2; O2SAT 100
[2025-04-07 08:00] LABS: Basophils Percent Auto 0.5 % (0.2-1.2); Eosinophils Absolute Auto 0.1 K/mm3 (0-0.3); Eosinophils Percent Auto 2.2 % (0-4.4); Hematocrit 26.6 % (37.0-47.0); Immature Granulocyte Absolute 0.03 K/mm3 (0.00-0.031); Immature Granulocyte Percent A 0.5 % (0-0.5); Lymphocytes Absolute Auto 1.67 K/mm3 (0.9-3.2); Lymphocytes Percent Auto 30.1 % (18.3-44.2); Mean Corpuscular HGB Conc 30.1 g/dl (32-36); Mean Corpuscular Hemoglobin 26.6 pg (26-34); Mean Corpuscular Volume 88.4 fl (80-100); Monocytes Absolute Auto 0.4 K/mm3 (0.1-0.6); Monocytes Percent Auto 6.7 % (2.6-8.5); Neutrophils Absolute Auto 3.3 K/mm3 (1.3-6.7); Platelet Count Result 245 k/mm3 (150-375); Red Blood Count 3.01 M/mm3 (4.2-5.4); Red Cell Distribution Width 17.5 % (11.5-14.5); White Blood Count 5.5 K/mm3 (4.5-10.0)
[2025-04-07 08:14] LABS: Alanine Aminotransferase 39 U/L (6-35); Alkaline Phosphatase 244 U/L (38-126); Anion Gap 2 mmol/L (4-12); Aspartate Amino Transferase 43 U/L (14-36); Bilirubin,Total 0.2 mg/dL (0.2-1.3); Blood Urea Nitrogen 14 mg/dL (7-17); Calcium 8.6 mg/dL (8.4-10.2); Carbon Dioxide 31 mmol/L (22-30); Chloride 105 mmol/L (98-107); Estimated CRCL calculation 75 ml/min; Estimated Glomerular Filt Rate > 60; Glucose 101 mg/dL (65-110); Potassium 3.8 mmol/L (3.4-5.0); Sodium 138 mmol/L (137-145)
--- NOTE | 2025-04-07 08:40 | PCPTNOTE ---
Present for transfer with Ronna DUKE during today's PT session. Plan of care updated.
--- NOTE | 2025-04-07 08:59 | PCSTNOTE ---
Bedside Speech therapy treatment completed 04/06. Unable to enter in EMR due to downtime. Please see note placed in hard chart.
[2025-04-07] MEDS: ACETAMINOPHEN 500 MG TABLET 1000 MG PO ×2 (09:41→17:28)
[2025-04-07] MEDS: PANTOPRAZOLE 40 MG TABLET PO ×2 (09:42→21:49)
[2025-04-07] MEDS: SERTRALINE HCL 25 MG TABLET PO (09:42)
[2025-04-07] MEDS: ENOXAPARIN 80 MG/0.8 ML SYRINGE SUB-Q (09:43)
--- NOTE | 2025-04-07 13:37 | P.PNIM_ITS ---
Progress Note: A&P Assessment and Plan (1) Acute respiratory failure: Code(s): J96.00 - Acute respiratory failure, unspecified whether with hypoxia or hypercapnia Status: Acute Assessment and Plan: Acute Respiratory failure secondary to altered mental status and inability to protect airway Patient was intubated and extubated on03/30 Currently on room air Avoid sedatives Incentive spirometry patient can do it Bronchodilators (2) Sepsis: Code(s): A41.9 - Sepsis, unspecified organism Status: Acute Assessment and Plan: Sepsis secondary to bowel perforation, peritonitis, UTI Blood and urine cultures have been ordered no growth Continue Zosyn and completed treatment Sepsis resolved (3) Altered mental status: Code(s): R41.82 - Altered mental status, unspecified Status: Acute Assessment and Plan: Patient presented with altered mental status. Patient also has history of seizure disorder and may have had seizure and be postictal. Other possibilities are sepsis as she had a perforated bowel and UTI Overnight rapid response could be secondary to deterioration of mental status from Dilaudid. MRI brain done on 03/27 did not showed any acute CVA and showed 1. Normal aging brain with minimal periventricular calcific white matter T2 hyperintensity consistent with chronic small vessel ischemic disease. No acute intracranial process EEG as below Recent TSH was normal Normal ammonia Sedation held and now patient is following commands and moving all 4 extremities Neurology following Avoid sedatives and monitor. (4) C2 cervical fracture: Code(s): S12.100A - Unspecified displaced fracture of second cervical vertebra, initial encounter for closed fracture Status: Inactive Assessment and Plan: Patient had a C2 fracture from fall few weeks ago. Patient was evaluated by Neurosurgery. MRI C-spine done on this hospitalization showed following She currently in a soft C-collar. Impression: Fractured the base of the odontoid process possibly extending from the C2 vertebral body detailed above, most compatible with acute fracture. There is minimal marrow edema and suggestion of possible early cortication along the fracture margins. Alignment appears unchanged as compared to prior CT scans. Anterior fusion of C5 and C6. Moderate to advanced degenerative spondylosis otherwise, as detailed above, with multilevel neural foraminal narrowing. Continue C-collar at all times (5) Dysphagia: Code(s): R13.10 - Dysphagia, unspecified Status: Acute Assessment and Plan: Patient failed her swallow study prior to surgery. Currently she is getting tube feeds through NG tube Speech Therapy following. Started on oral diet and tolerating follow calorie count (6) UTI (urinary tract infection): Code(s): N39.0 - Urinary tract infection, site not specified Status: Resolved Assessment and Plan: See above (7) Seizure disorder: Code(s): G40.909 - Epilepsy, unspecified, not intractable, without status epilepticus Status: Acute Assessment and Plan: History of seizure disorder. Continue Keppra. Currently sedated with Versed 03/28 EEG. IMPRESSION This is an abnormal EEG due to following 1. Nearly continuous focal slow wave activity intermixed with sharp wave transients were seen over left frontal area. This may relate to having previous surgery in this area. Focal slowing is suggestive of underlying structural lesion. Sharp transients are considered nonspecific focal interictal abnormality. Clinical and radiographic correlation are recommended. 2. Mild his background slowing suggestive of generalized encephalopathy (8) Perforation bowel: Code(s): K63.1 - Perforation of intestine (nontraumatic) Status: Acute Assessment and Plan: 03/28 Status post 1. Exploratory laparotomy 2. Sigmoid colon resection with end descending colostomy 3. Ileal resection with [id number] ileal anastomosis Management per General surgery Antibiotics as above completed course (9) Anemia: Code(s): D64.9 - Anemia, unspecified Status: Acute Assessment and Plan: 03/30 Hemoglobin 6.2 this morning likely secondary to surgery and hemodilution. No objective evidence of bleeding at this time. Stool is brown Transfuse 1 unit PRBC and repeat hemoglobin. Coags if you Continue DVT prophylaxis Lovenox at this time. Continue PPI Hemoglobin stable at this time monitor. Despite being on DVT prophylaxis now has DVT likely PICC line associated. swtch ed to therapeutic Lovenox (10) Superficial vein thrombosis: Code(s): I82.890 - Acute embolism and thrombosis of other specified veins Status: Acute Assessment and Plan: Venous Doppler shows thrombus in the left cephalic and basilic veins and left upper extremity. Continue DVT prophylaxis with Lovenox. Despite being on DVT prophylaxis now has DVT likely PICC line associated. switched to therapeutic Lovenox (11) DVT (deep venous thrombosis): Code(s): I82.409 - Acute embolism and thrombosis of unspecified deep veins of unspecified lower extremity Status: Acute Assessment and Plan: Venous Doppler shows thrombus in the left cephalic and basilic veins and left upper extremity. Continue DVT prophylaxis with Lovenox. Despite being on DVT prophylaxis now has DVT likely PICC line associated. switched to therapeutic Lovenox (12) Depression: Code(s): F32.A - Depression, unspecified Status: Acute Assessment and Plan: ongoing. lacks motivation wadded zoloft added mirtazapine. avoid megace due to dvt Plan patient with c/o abdominal pain had CT scan of the abdomen and pelvic which showed sigmoid diverticulosis with 6.0 x 5.4 x 3.2 cm gas and feculent material containing cavity consistent with a contained bowel perforation which communicates to the sigmoid colon through a 1.8 x 1.3 cm defect in the wall of the colon. patient was seen by surgery service and was taken to the OR on 03/29 and had surgical repair had resection of her intestine and colostomy was placed and the surgery was uneventful, however later in the evening RR was called as patient was unresponsive and was intubated to protect patient airway. on 03/30 patient was extubated and ostomy is functioning now, patient fed via NG tube remain stable off vent in the ICU patient was transferred out of ICU to IMU on 03/31. Patient was seen by speech therapist and swallowing evaluation recommending patient can start puree diet will also continue tube feeding at half the rate to provide sufficient nutrition, however on 04/02 patient pulled out NG tube and refused to put NG tube back, ENT consulted for concern for tonsillar abscess. Disposition plan to go to [facility] re[facility]/swing bed. Continue PT OT to see DVT prophylaxis - SCD, Lovenox Stress ulcer prophylaxis - PPI Nutrition -tube feeds Code Status - Full Code Subjective Date/time seen: 04/07/25 13:37 Interval history: No overnight events. Patient is more conversive today. Denies any abdominal pain. She has also seen to be sipping her drink. Overall in a better mood. Right arm swelling still persist Review of Systems Review of Systems: All systems reviewed & are unremarkable except as noted in HPI and below Exam Narrative: Patient is comfortable, NAD HEENT: eyes are clear and none icteric LUNGS:CTA HEART: RR S1S2 ABD: BS+, Soft and nontender midline suture with colostomy bag in place Lower extremities: no edema right upper extremity swelling noted. PICC line in situ SKIN: nonjaundiced Neuro: grossly intact. Objective Data Vital Signs Vital Signs: Vital Signs - 24 hr 04/06/25 13:42 04/06/25 14:00 04/06/25 16:00 Temperature 97.6 F 97.7 F Pulse Rate 90 102 H Respiratory Rate 18 Blood Pressure 153/83 H Pulse Oximetry 100 Oxygen Delivery Fraction of Inspired Oxygen 04/06/25 20:00 04/06/25 20:00 04/06/25 20:24 Temperature Pulse Rate 99 99 Respiratory Rate 20 Blood Pressure Pulse Oximetry 98 Oxygen Delivery Room Air Room Air Fraction of Inspired Oxygen 21 04/06/25 22:00 04/07/25 06:00 04/07/25 09:40 Temperature 98.1 F 97.2 F L Pulse Rate 102 H 87 Respiratory Rate 18 18 Blood Pressure 151/87 H 145/88 H Pulse Oximetry 99 100 Oxygen Delivery Room Air Fraction of Inspired Oxygen Intake/Output Intake/Output: Intake & Output 04/04/25 04/05/25 04/06/25 04/07/25 23:59 23:59 23:59 23:59 Intake Total 830 770 600 600 Output Total 770 1150 1375 350 Balance 60 380 -775 250 Meds/Results Medications: Active Medications Generic Name Dose Route Start Last Admin Trade Name Freq PRN Reason Stop Dose Admin Acetaminophen 1,000 mg 04/04/25 14:11 04/07/25 09:41 Acetaminophen 500 Mg Tablet PO 1,000 mg Q6H PRN Administration fever or pain Hydrocodone Bitart/Acetaminophen 1 tab 03/31/25 07:54 04/07/25 12:00 Hydrocodone/Acetaminophen (*Crx) 5-325 Mg Tablet PO 1 tab Q4H PRN Administration Pain Rated 4-6 Albuterol/Ipratropium 3 ml 03/30/25 04:29 03/30/25 05:49 Ipratropium 0.5 Mg/Albuterol Sulfate 2.5 Mg Ampul.Neb 3 Ml INHALATION 3 ml Q6HRT PRN Administration Wheezing Enoxaparin Sodium 80 mg 04/05/25 22:00 04/07/25 09:43 Enoxaparin 80 Mg/0.8 Ml Syringe SUB-Q 80 mg Q12HR JAYDEN Administration Levetiracetam 1,500 mg 04/04/25 21:00 04/07/25 09:48 Levetiracetam Oral [place] 500 Mg/5 Ml Udc PO Not Given Q12HR JAYDEN Mirtazapine 7.5 mg 04/06/25 21:00 04/06/25 20:42 Mirtazapine 7.5 Mg Tablet PO 7.5 mg HS JAYDEN Administration Naloxone HCl 0.1 mg 03/29/25 00:02 Naloxone Hcl 0.4 Mg/Ml Vial IV PUSH Q2M PRN Opiate Reversal Ondansetron HCl 4 mg 03/26/25 14:08 Ondansetron Inj 4 Mg/2 Ml Vial IV PUSH Q6H PRN Nausea And Vomiting Pantoprazole Sodium 40 mg 04/05/25 09:00 04/07/25 09:42 Pantoprazole 40 Mg Tablet PO 40 mg QAM JAYDEN Administration Sertraline HCl 25 mg 04/06/25 18:00 04/07/25 09:42 Sertraline Hcl 25 Mg Tablet PO 25 mg QAM JAYDEN Administration Simethicone 80 mg 04/05/25 17:41 04/06/25 11:59 Simethicone 80 Mg Tab.Chew PO 80 mg QID PRN Administration Gas Discomfort Sodium Chloride 10 ml 03/29/25 14:00 04/07/25 04:32 Central Line Flush IV PUSH 10 ml Q8HR JAYDEN Administration Sodium Chloride 10 ml 03/29/25 09:36 Central Line Flush IV PUSH PRN PRN with TPN bag changes Sodium Chloride 20 ml 03/29/25 09:36 Central Line Flush IV PUSH PRN PRN after blood draws Radiology Results: ITS Impressions Modified Barium Swallow 03/27/25 15:26 IMPRESSION: Oropharyngeal dysphagia with intermittent laryngeal penetration with indeterminate/possible minimal aspiration. Please correlate with speech pathologist findings and specific feeding recommendations. Brain MRI 03/27/25 15:28 IMPRESSION: 1. Normal aging brain with minimal periventricular calcific white matter T2 hyperintensity consistent with chronic small vessel ischemic disease. No acute intracranial process. Cervical Spine MRI 03/28/25 08:39 Impression: Fractured the base of the odontoid process possibly extending from the C2 vertebral body detailed above, most compatible with acute fracture. There is minimal marrow edema and suggestion of possible early cortication along the fracture margins. Alignment appears unchanged as compared to prior CT scans. Anterior fusion of C5 and C6. Moderate to advanced degenerative spondylosis otherwise, as detailed above, with multilevel neural foraminal narrowing. Chest/Abdomen/Pelvis CT 03/28/25 11:45 IMPRESSION: 1. Sigmoid diverticulosis with 6.0 x 5.4 x 3.2 cm gas and feculent material containing cavity consistent with a contained bowel perforation which communicates to the sigmoid colon through a 1.8 x 1.3 cm defect in the wall of the colon. 2. Nonobstructing left nephrolithiasis. 3. Mild cardiomegaly. No acute cardiopulmonary disease. Head CT 03/29/25 09:51 IMPRESSION: 1. No acute intracranial process. 2. Age-related changes including mild to moderate diffuse volume loss and mild scattered white matter attenuation consistent with chronic small vessel ischemic disease. 3. Chronic left frontal craniotomy. Abdomen X-Ray 04/01/25 10:44 IMPRESSION: 1. Nasogastric tube in the stomach. Chest X-Ray 04/04/25 14:06 IMPRESSION: Inadvertent withdrawal of the previously identified PICC line, which now projects over the right subclavian vein, as detailed above. Venous Doppler Study 04/05/25 11:34 IMPRESSION: 1. Bilateral upper extremity venous thrombosis with deep venous thrombosis of the right subclavian and axillary veins. Labs Labs: Laboratory Results - last 24 hr 04/07/25 07:51 WBC 5.5 RBC 3.01 L Hgb 8.0 L Hct 26.6 L MCV 88.4 MCH 26.6 MCHC 30.1 L RDW 17.5 H Plt Count 245 MPV 10.0 Immature Gran % (Auto) 0.5 Neut % (Auto) 60.0 Lymph % (Auto) 30.1 [place] % (Auto) 6.7 Eos % (Auto) 2.2 Baso % (Auto) 0.5 Lymph # (Auto) 1.67 [place] # (Auto) 0.4 Eos # (Auto) 0.1 Baso # (Auto) 0.0 Abs Immat Gran (auto) 0.03 Absolute Neuts (auto) 3.3 Absolute Nucleated RBC 0.000 Nucleated RBC % 0.0 Sodium 138 Potassium 3.8 Chloride 105 Carbon Dioxide 31 H Anion Gap 2 L BUN 14 D Creatinine 0.54 L Estim Creat Clear Calc 75 Estimated GFR > 60 Glucose 101 Calcium 8.6 Magnesium 2.0 Total Bilirubin 0.2 AST 43 H ALT 39 H Alkaline Phosphatase 244 H Total Protein 7.0 Albumin 3.0 L
[2025-04-07 14:00] VITALS: BP 141/76; PULSE 100; RESP 18; TEMP 36.8; O2SAT 100
--- NOTE | 2025-04-07 14:18 | P.PNGS_ITS ---
Progress Note: A&P Assessment and Plan (1) Perforation bowel: Code(s): K63.1 - Perforation of intestine (nontraumatic) Status: Acute Assessment and Plan: * Patient re-evaluated today for blood in her stool. She does have pink-tinged stool coming from the ostomy. The stoma appears healthy with no areas of bleeding. Hgb has been stable. Continue PPI. Will hold her Lovenox for now and monitor serial labs. If this does not improve within the next few days, then we could consider consulting GI. Plan I have discussed the patient's case and plan of care with Dr. Coley. Subjective Subjective Date/Time Seen: 04/07/25 14:18 Interval history: Called to the room by nursing and Hospitalist for reports of pink-colored stool from the ostomy. Wound care nurse at the bedside and has taken down the ostomy appliance. patient is alert and denies any specific complaints. She denies abdominal pain. Hgb stable between 7.5-8.0 over the past few days. She is hemodynamically stable with slightly elevated blood pressure. Exam Const: General: comfortable and no acute distress GI: Inspection: non-distended and incision (healing well with noah intact, no erythema or drainage) GI Palp: Yes Soft to palpation, No Tenderness to pal pation present (GI) and No Guarding due to palpation present (GI) Auscultation: normal bowel sounds Other: Colostomy with pink/red tinged brown stool in bag, stoma is pink and viable with no areas of bleeding, with bag off there is a small amount of pinkish-brown colored stool coming from the center of the ostomy. Objective Data Vital Signs Vital Signs: Vital Signs - 24 hr 04/06/25 16:00 04/06/25 20:00 04/06/25 20:00 Temperature Pulse Rate 102 H 99 Respiratory Rate Blood Pressure Pulse Oximetry Oxygen Delivery Room Air Fraction of Inspired Oxygen 04/06/25 20:24 04/06/25 22:00 04/07/25 06:00 Temperature 98.1 F 97.2 F L Pulse Rate 99 102 H 87 Respiratory Rate 20 18 18 Blood Pressure 151/87 H 145/88 H Pulse Oximetry 98 99 100 Oxygen Delivery Room Air Fraction of Inspired Oxygen 21 04/07/25 09:40 04/07/25 14:00 Temperature 98.3 F Pulse Rate 100 Respiratory Rate 18 Blood Pressure 141/76 H Pulse Oximetry 100 Oxygen Delivery Room Air Fraction of Inspired Oxygen Intake/Output Intake/Output: Intake & Output 04/04/25 04/05/25 04/06/25 04/07/25 23:59 23:59 23:59 23:59 Intake Total 830 770 600 600 Output Total 770 1150 1375 350 Balance 60 380 -038 250 Meds/Results Medications: Active Medications Generic Name Dose Route Start Last Admin Trade Name Freq PRN Reason Stop Dose Admin Acetaminophen 1,000 mg 04/04/25 14:11 04/07/25 09:41 Acetaminophen 500 Mg Tablet PO 1,000 mg Q6H PRN Administration fever or pain Hydrocodone Bitart/Acetaminophen 1 tab 03/31/25 07:54 04/07/25 12:00 Hydrocodone/Acetaminophen (*Crx) 5-325 Mg Tablet PO 1 tab Q4H PRN Administration Pain Rated 4-6 Albuterol/Ipratropium 3 ml 03/30/25 04:29 03/30/25 05:49 Ipratropium 0.5 Mg/Albuterol Sulfate 2.5 Mg Ampul.Neb 3 Ml INHALATION 3 ml Q6HRT PRN Administration Wheezing Enoxaparin Sodium 80 mg 04/05/25 22:00 04/07/25 09:43 Enoxaparin 80 Mg/0.8 Ml Syringe SUB-Q 80 mg Q12HR JAYDEN Administration Levetiracetam 1,500 mg 04/04/25 21:00 04/07/25 09:48 Levetiracetam Oral [place] 500 Mg/5 Ml Udc PO Not Given Q12HR JAYDEN Mirtazapine 7.5 mg 04/06/25 21:00 04/06/25 20:42 Mirtazapine 7.5 Mg Tablet PO 7.5 mg HS JAYDEN Administration Naloxone HCl 0.1 mg 03/29/25 00:02 Naloxone Hcl 0.4 Mg/Ml Vial IV PUSH Q2M PRN Opiate Reversal Ondansetron HCl 4 mg 03/26/25 14:08 Ondansetron Inj 4 Mg/2 Ml Vial IV PUSH Q6H PRN Nausea And Vomiting Pantoprazole Sodium 40 mg 04/05/25 09:00 04/07/25 09:42 Pantoprazole 40 Mg Tablet PO 40 mg QAM JAYDEN Administration Sertraline HCl 25 mg 04/06/25 18:00 04/07/25 09:42 Sertraline Hcl 25 Mg Tablet PO 25 mg QAM JAYDEN Administration Simethicone 80 mg 04/05/25 17:41 04/06/25 11:59 Simethicone 80 Mg Tab.Chew PO 80 mg QID PRN Administration Gas Discomfort Sodium Chloride 10 ml 03/29/25 14:00 04/07/25 04:32 Central Line Flush IV PUSH 10 ml Q8HR JAYDEN Administration Sodium Chloride 10 ml 03/29/25 09:36 Central Line Flush IV PUSH PRN PRN with TPN bag changes Sodium Chloride 20 ml 03/29/25 09:36 Central Line Flush IV PUSH PRN PRN after blood draws Radiology Results: ITS Impressions Modified Barium Swallow 03/27/25 15:26 IMPRESSION: Oropharyngeal dysphagia with intermittent laryngeal penetration with indeterminate/possible minimal aspiration. Please correlate with speech pathologist findings and specific feeding recommendations. Brain MRI 03/27/25 15:28 IMPRESSION: 1. Normal aging brain with minimal periventricular calcific white matter T2 hyperintensity consistent with chronic small vessel ischemic disease. No acute intracranial process. Cervical Spine MRI 03/28/25 08:39 Impression: Fractured the base of the odontoid process possibly extending from the C2 vertebral body detailed above, most compatible with acute fracture. There is minimal marrow edema and suggestion of possible early cortication along the fracture margins. Alignment appears unchanged as compared to prior CT scans. Anterior fusion of C5 and C6. Moderate to advanced degenerative spondylosis otherwise, as detailed above, with multilevel neural foraminal narrowing. Chest/Abdomen/Pelvis CT 03/28/25 11:45 IMPRESSION: 1. Sigmoid diverticulosis with 6.0 x 5.4 x 3.2 cm gas and feculent material containing cavity consistent with a contained bowel perforation which communicates to the sigmoid colon through a 1.8 x 1.3 cm defect in the wall of the colon. 2. Nonobstructing left nephrolithiasis. 3. Mild cardiomegaly. No acute cardiopulmonary disease. Head CT 03/29/25 09:51 IMPRESSION: 1. No acute intracranial process. 2. Age-related changes including mild to moderate diffuse volume loss and mild scattered white matter attenuation consistent with chronic small vessel ischemic disease. 3. Chronic left frontal craniotomy. Abdomen X-Ray 04/01/25 10:44 IMPRESSION: 1. Nasogastric tube in the stomach. Chest X-Ray 04/04/25 14:06 IMPRESSION: Inadvertent withdrawal of the previously identified PICC line, which now projects over the right subclavian vein, as detailed above. Venous Doppler Study 04/05/25 11:34 IMPRESSION: 1. Bilateral upper extremity venous thrombosis with deep venous thrombosis of the right subclavian and axillary veins. Labs Labs: Laboratory Results - last 24 hr 04/07/25 07:51 WBC 5.5 RBC 3.01 L Hgb 8.0 L Hct 26.6 L MCV 88.4 MCH 26.6 MCHC 30.1 L RDW 17.5 H Plt Count 245 MPV 10.0 Immature Gran % (Auto) 0.5 Neut % (Auto) 60.0 Lymph % (Auto) 30.1 [place] % (Auto) 6.7 Eos % (Auto) 2.2 Baso % (Auto) 0.5 Lymph # (Auto) 1.67 [place] # (Auto) 0.4 Eos # (Auto) 0.1 Baso # (Auto) 0.0 Abs Immat Gran (auto) 0.03 Absolute Neuts (auto) 3.3 Absolute Nucleated RBC 0.000 Nucleated RBC % 0.0 Sodium 138 Potassium 3.8 Chloride 105 Carbon Dioxide 31 H Anion Gap 2 L BUN 14 D Creatinine 0.54 L Estim Creat Clear Calc 75 Estimated GFR > 60 Glucose 101 Calcium 8.6 Magnesium 2.0 Total Bilirubin 0.2 AST 43 H ALT 39 H Alkaline Phosphatase 244 H Total Protein 7.0 Albumin 3.0 L
[2025-04-07] MEDS: levETIRAcetam 500 MG TABLET 1500 MG PO (20:30)
[2025-04-07] MEDS: MIRTAZAPINE 7.5 MG TABLET PO (20:30)
[2025-04-07 20:49] VITALS: BP 151/74; PULSE 100; RESP 18; TEMP 37.2; O2SAT 100
[2025-04-07 21:08] LABS: Hemoglobin 8.2 g/dL (12.0-15.0)
[2025-04-07 21:37] VITALS: O2SAT 100
[2025-04-08 03:33] LABS: Basophils Percent Auto 0.5 % (0.2-1.2); Eosinophils Absolute Auto 0.1 K/mm3 (0-0.3); Eosinophils Percent Auto 1.4 % (0-4.4); Hematocrit 26.4 % (37.0-47.0); Immature Granulocyte Absolute 0.03 K/mm3 (0.00-0.031); Immature Granulocyte Percent A 0.5 % (0-0.5); Lymphocytes Absolute Auto 1.92 K/mm3 (0.9-3.2); Lymphocytes Percent Auto 33.4 % (18.3-44.2); Mean Corpuscular HGB Conc 30.3 g/dl (32-36); Mean Corpuscular Hemoglobin 26.6 pg (26-34); Mean Corpuscular Volume 87.7 fl (80-100); Mean Platelet Volume 10.1 fl (7.4-10.4); Monocytes Absolute Auto 0.4 K/mm3 (0.1-0.6); Monocytes Percent Auto 6.8 % (2.6-8.5); Neutrophils Absolute Auto 3.3 K/mm3 (1.3-6.7); Neutrophils Percent Auto 57.4 % (45.5-73.1); Platelet Count Result 281 k/mm3 (150-375); Red Blood Count 3.01 M/mm3 (4.2-5.4); Red Cell Distribution Width 17.8 % (11.5-14.5); White Blood Count 5.7 K/mm3 (4.5-10.0)
[2025-04-08 03:54] LABS: Alanine Aminotransferase 34 U/L (6-35); Albumin Level 3.1 g/dL (3.5-5.1); Alkaline Phosphatase 244 U/L (38-126); Anion Gap 5 mmol/L (4-12); Aspartate Amino Transferase 40 U/L (14-36); Bilirubin,Total 0.2 mg/dL (0.2-1.3); Blood Urea Nitrogen 15 mg/dL (7-17); Calcium 8.5 mg/dL (8.4-10.2); Carbon Dioxide 28 mmol/L (22-30); Chloride 104 mmol/L (98-107); Estimated CRCL calculation 75 ml/min; Estimated Glomerular Filt Rate > 60; Glucose 108 mg/dL (65-110); Magnesium 1.9 mg/dL (1.6-2.3); Potassium 3.7 mmol/L (3.4-5.0); Sodium 137 mmol/L (137-145)
[2025-04-08 04:02] LABS: Anisocytosis 1+; Platelet Estimate Adequate (Adequate)
[2025-04-08 04:03] LABS: Hypochromasia 1+; Schistocytes None Seen; Target Cells 1+
[2025-04-08 06:00] VITALS: BP 144/74; PULSE 89; RESP 18; TEMP 36.6; O2SAT 100
[2025-04-08] MEDS: HYDROcodone/acetaminophen (*CRX) 5-325 MG TABLET 1 TAB PO (08:24)
[2025-04-08] MEDS: SERTRALINE HCL 25 MG TABLET PO (08:26)
[2025-04-08] MEDS: PANTOPRAZOLE 40 MG TABLET PO (08:26)
[2025-04-08] MEDS: levETIRAcetam 500 MG TABLET 1500 MG PO ×2 (08:26→21:09)
[2025-04-08 09:55] LABS: Hemoglobin 7.6 g/dL (12.0-15.0)
--- NOTE | 2025-04-08 10:45 | PCDIET ---
Calorie Count initiated on 04/07. No intake reported on 04/07 but did drink Ensure supplements providing 350 kcal and 20 gm protein. Spoke with nursing today. Diet order modified to Minced and Moist, Level 5. Patient did eat breakfast today, banana, applesauce, cinnamon apples and drank ensure. Will continue to monitor for 3 days.
--- NOTE | 2025-04-08 12:12 | P.CONGI_ITS ---
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 GI bleed/anemia/bowel perforation/coloenteric fistula: Colonoscopy history unknown. Patient found to have sepsis, bowel perforation, peritonitis and fistula this admission. Sepsis resolved, WBCs normal at 6. Patient had a sigmoid colon resection with end descending colostomy, ileal resection with [id number] ileal anastomosis performed 03/28/2025. On admission Hgb 8.1 and following surgery 6.2. Since surgery Hgb has remained between 7-8. Labs today show Hgb 7.6, HCT 26, MCV and platelets 281. GI was consulted for possible blood noted in colostomy output. On inspection patient had brown liquid stool with no graciela bleeding. Patient previously noted to have trace blood/pink color and stool. Lovenox on hold. * Given recent surgery, complex medical history, and no signs of active GI bleeding I do not feel that an emergent endoscopic evaluation is warranted at this time * Continue to monitor for signs of active bleeding * Primary care team to continue monitoring H&H and transfuse as needed to keep HGB > 7 2. Oropharyngeal dysphagia: Modified barium swallow showed oropharyngeal dysphagia and patient has been working with speech therapy. 3. Elevated LFTs: Patient shown to have alkaline phosphatase and AST elevation since admission. AST trending down currently 40. Alkaline phosphatase 244. No known history of liver disease * Acute elevation may be secondary to recent fracture and bowel surgery * Continue monitoring Thank you very much for allowing me to share in the care of this very nice patient. This report may have been done utilizing a voice recognition system. Attempts have been made to correct errors. However, there may be uncorrected grammatical, spelling, and recognition errors present. GI Consult Note Consult date/time: 04/08/25 12:12 Reason for consult: blood from ostomy HPI: Deedee Duran is a 74 year old female past medical history of a subdural and subarachnoid hemorrhage, migraines, tremors, hypertension, HLD, CKD, anemia, anterior displaced type 2 dens fracture, and dysphagia. Patient was initially seen at [facility] 03/25/2025 for altered mental status from a [place] [facility] facility and was transferred to [place] for higher level of care. Patient was admitted for altered mental status and was found to have severe sepsis. GI has been consulted for blood from ostomy. Patient has had an extensive complicated hospital admission including severe sepsis secondary to bowel perforation, peritonitis and UTI, respiratory failure, fistula and bowel perforation, acute respiratory failure that required intubation, and tonsillar abscess. Patient is status post sigmoid colon resection with end descending colostomy and ileal resection with [id number] ileal anastomosis that was performed 03/28/2025. Patient with history of dysphagia and modified barium swallow showed oropharyngeal dysphagia with intermittent laryngeal penetration with indeterminate/possible minimal aspiration. Patient has been working with speech therapy. Patient is non verbal so I was unable to obtain subjective information. ENDOSCOPY HISTORY: EGD and colonoscopy Hx unknown LABS AND STOOL STUDIES: Labs 04/08/2025: Sodium 137, potassium 3.7, BUN 15, creatinine 0.54, GFR >60, calcium 8.5, magnesium 1.9 WBC 6, Hgb 7.6, Hct 26, MCV 88, platelets 281 Total bilirubin 0.2, AST 40, ALT 34, Alkaline Phos 244, albumin 3.1 IMAGING: Abdominal Xray 04/01/2025: FINDINGS: Nasogastric tube tip in proximal side port in the body the stomach. Right upper extremity peripherally inserted central venous catheter (PICC) tip at the caudal superior vena cava. No dilated loops of gas-filled bowel in the visualized abdomen. Large left renal stone in the left upper quadrant. Visualized portion of the lungs are clear with no pleural effusion. Borderline heart size accounting for AP technique. Median sternotomy wires and mediastinal surgical clips are seen, likely from prior coronary artery bypass grafting. Left atrial appendage occlusion clip. Additional surgical clip projecting over the midline of the mid abdomen. IMPRESSION: 1. Nasogastric tube in the stomach. CT chest/abd/pelvis w/contrast 03/28/2025: IMPRESSION: 1. Sigmoid diverticulosis with 6.0 x 5.4 x 3.2 cm gas and feculent material containing cavity consistent with a contained bowel perforation which communicates to the sigmoid colon through a 1.8 x 1.3 cm defect in the wall of the colon. 2. Nonobstructing left nephrolithiasis. 3. Mild cardiomegaly. No acute cardiopulmonary disease. BMS with speech 03/27/2025: IMPRESSION: Oropharyngeal dysphagia with intermittent laryngeal penetration with indeterminate/possible minimal aspiration. Please correlate with speech pathologist findings and specific feeding recommendations. Impression: mild dysphagia due to the laryngeal penetration Recommendations: level 5 minced and moist diet with level 0 thin/regular liquids but no straw drinking. ST to follow for laryngeal elevation ex and for completion of the communication eval. Review of Systems 2 Review of Systems: ROS unobtainable: Yes unobtainable due to medical condition and unobtainable due to mental status [facility] Past Medical History Medical History (Updated 04/08/25 @ 12:44 by Natalia Tidwell APRN) C2 cervical fracture CAD (coronary artery disease) Coarse tremors Subdural hemorrhage Subarachnoid hemorrhage Migraine Hypertension Family History Family History Mother Hypertension Spinal cord cancer Sibling Colon cancer Hypertension Other Breast cancer Social History Social History Smoking packs per day: 0.5 Smoking cigarettes per day: 10.0 Years smoked: 20 Smoking pack-years: 10.00 Smoking status: Former smoker Tobacco type: cigarettes Second hand tobacco smoke exposure: No Alcohol intake: never Substance use: never Spiritual care concerns: No Meds Home Medications and Allergies Home Medications ?Medication ?Instructions ?Recorded ?Confirmed ?Type amlodipine 10 mg tablet 10 mg PO DAILY 03/10/25 03/26/25 History aspirin 81 mg chewable tablet 81 mg PO DAILY 03/10/25 03/26/25 History docusate sodium 100 mg capsule 100 mg PO BID 03/10/25 03/26/25 History levetiracetam 250 mg tablet 1,500 mg PO DAILY 03/10/25 03/26/25 History (Keppra) oxycodone 5 mg tablet 5 mg PO Q6H PRN pain 03/10/25 03/26/25 History polyethylene glycol 3350 17 17 g PO DAILY 03/10/25 03/26/25 History gram/dose oral powder (ClearLax) potassium chloride 10 mEq 10 meq PO DAILY 03/10/25 03/26/25 History capsule,extended release prasugrel HCl 10 mg tablet 10 mg PO DAILY 03/10/25 03/26/25 History (Effient) primidone 250 mg tablet 250 mg PO QID 03/10/25 03/26/25 History topiramate 25 mg tablet (Topamax) 25 mg PO HS 03/10/25 03/26/25 History acetaminophen 500 mg capsule 1,000 mg PO Q6H PRN fever or pain 03/25/25 03/26/25 History Allergies Allergy/AdvReac Type Severity Reaction Status Date / Time morphine Allergy Unknown Unknown Verified 03/25/25 12:49 Vital Signs Vital Signs - 24 hr 04/07/25 14:00 04/07/25 20:00 04/07/25 20:49 Temperature 98.3 F 98.9 F Pulse Rate 100 100 Respiratory Rate 18 18 Blood Pressure 141/76 H 151/74 H Pulse Oximetry 100 100 Oxygen Delivery Room Air Fraction of Inspired Oxygen 04/07/25 21:37 04/08/25 06:00 04/08/25 08:00 Temperature 98 F Pulse Rate 89 Respiratory Rate 18 Blood Pressure 144/74 H Pulse Oximetry 100 100 Oxygen Delivery Room Air Room Air Fraction of Inspired Oxygen 21 Exam 2 Const: General: comfortable and no acute distress Eyes: General: appearance normal, both eyes and all related structures S clera: sclerae normal Neck: Neck: supple Resp: Effort & Inspection: normal respiratory effort Auscultation: clear to auscultation bilaterally Cardio: Rate: regular rate Rhythm: regular rhythm GI: Inspection: non-distended GI Palp: Yes Soft to palpation A uscultation: normal bowel sounds Urinary Catheter: Urinary Catheter: patent and draining Skin: General skin exam: normal color Wounds: wounds noted Neuro: Speech: No normal speech Extrem: General: normal to inspection Psych: Mental Status: mental status grossly abnormal Results Labs 04/08/25 09:48 04/08/25 03:24 Labs: Short CBC 04/07/25 04/08/25 04/08/25 Range/Units 20:52 03:24 03:24 WBC 5.7 (4.5-10.0) K/mm3 Hgb 8.2 L 8.0 L Cancelled (12.0-15.0) g/dL Hct 28.0 L 26.4 L (37.0-47.0) % Plt Count (150-375) k/mm3 04/08/25 04/08/25 Range/Units 03:24 09:48 WBC (4.5-10.0) K/mm3 Hgb 7.6 L (12.0-15.0) g/dL Hct Cancelled 26.0 L (37.0-47.0) % Plt Count 281 (150-375) k/mm3 BMP 04/08/25 03:24 Sodium 137 Potassium 3.7 Chloride 104 Carbon Dioxide 28 BUN 15 Creatinine 0.54 L Glucose 108 Calcium 8.5 Liver Function 04/08/25 Range/Units 03:24 Total Bilirubin 0.2 (0.2-1.3) mg/dL AST 40 H (14-36) U/L ALT 34 (6-35) U/L Alkaline Phosphatase 244 H (38-126) U/L Albumin 3.1 L (3.5-5.1) g/dL
--- NOTE | 2025-04-08 13:04 | PCOTNOTE ---
The patient treatment was not able to be completed. Patient was tearful with pain. JESÚS Grider is aware. Will plan to continue treatment per plan of care.
[2025-04-08 13:17] LABS: Hematocrit 25.2 % (37.0-47.0); Hemoglobin 7.4 g/dL (12.0-15.0)
[2025-04-08 14:00] VITALS: BP 139/78; PULSE 103; RESP 16; TEMP 36.8; O2SAT 100
--- NOTE | 2025-04-08 14:53 | PM.IMPN ---
Progress Note: A&P Assessment and Plan (1) Acute respiratory failure: Code(s): J96.00 - Acute respiratory failure, unspecified whether with hypoxia or hypercapnia Status: Acute Assessment and Plan: Acute Respiratory failure secondary to altered mental status and inability to protect airway Patient was intubated and extubated on03/30 Currently on room air Avoid sedatives Incentive spirometry patient can do it Bronchodilators (2) Sepsis: Code(s): A41.9 - Sepsis, unspecified organism Status: Acute Assessment and Plan: Sepsis secondary to bowel perforation, peritonitis, UTI Blood and urine cultures have been ordered no growth Continue Zosyn and completed treatment Sepsis resolved (3) Altered mental status: Code(s): R41.82 - Altered mental status, unspecified Status: Acute Assessment and Plan: Patient presented with altered mental status. Patient also has history of seizure disorder and may have had seizure and be postictal. Other possibilities are sepsis as she had a perforated bowel and UTI Overnight rapid response could be secondary to deterioration of mental status from Dilaudid. MRI brain done on 03/27 did not showed any acute CVA and showed 1. Normal aging brain with minimal periventricular calcific white matter T2 hyperintensity consistent with chronic small vessel ischemic disease. No acute intracranial process EEG as below Recent TSH was normal Normal ammonia Sedation held and now patient is following commands and moving all 4 extremities Neurology following Avoid sedatives and monitor. (4) C2 cervical fracture: Code(s): S12.100A - Unspecified displaced fracture of second cervical vertebra, initial encounter for closed fracture Status: Inactive Assessment and Plan: Patient had a C2 fracture from fall few weeks ago. Patient was evaluated by Neurosurgery. MRI C-spine done on this hospitalization showed following She currently in a soft C-collar. Impression: Fractured the base of the odontoid process possibly extending from the C2 vertebral body detailed above, most compatible with acute fracture. There is minimal marrow edema and suggestion of possible early cortication along the fracture margins. Alignment appears unchanged as compared to prior CT scans. Anterior fusion of C5 and C6. Moderate to advanced degenerative spondylosis otherwise, as detailed above, with multilevel neural foraminal narrowing. Continue C-collar at all times (5) Dysphagia: Qualifiers: Dysphagia type: oropharyngeal phase Qualified Code(s): R13.12 - Dysphagia, oropharyngeal phase Code(s): R13.10 - Dysphagia, unspecified Status: Acute Assessment and Plan: Patient failed her swallow study prior to surgery. Currently she is getting tube feeds through NG tube Speech Therapy following. Started on oral diet and tolerating follow calorie count (6) UTI (urinary tract infection): Code(s): N39.0 - Urinary tract infection, site not specified Status: Resolved Assessment and Plan: See above (7) Seizure disorder: Code(s): G40.909 - Epilepsy, unspecified, not intractable, without status epilepticus Status: Acute Assessment and Plan: History of seizure disorder. Continue Keppra. Currently sedated with Versed 03/28 EEG. IMPRESSION This is an abnormal EEG due to following 1. Nearly continuous focal slow wave activity intermixed with sharp wave transients were seen over left frontal area. This may relate to having previous surgery in this area. Focal slowing is suggestive of underlying structural lesion. Sharp transients are considered nonspecific focal interictal abnormality. Clinical and radiographic correlation are recommended. 2. Mild his background slowing suggestive of generalized encephalopathy (8) Perforation bowel: Code(s): K63.1 - Perforation of intestine (nontraumatic) Status: Acute Assessment and Plan: 03/28 Status post 1. Exploratory laparotomy 2. Sigmoid colon resection with end descending colostomy 3. Ileal resection with [id number] ileal anastomosis Management per General surgery Antibiotics as above completed course (9) Anemia: Code(s): D64.9 - Anemia, unspecified Status: Acute Assessment and Plan: 03/30 Hemoglobin 6.2 this morning likely secondary to surgery and hemodilution. No objective evidence of bleeding at this time. Stool is brown Transfuse 1 unit PRBC and repeat hemoglobin. Coags if you Continue DVT prophylaxis Lovenox at this time. Continue PPI Hemoglobin stable at this time monitor. Despite being on DVT prophylaxis now has DVT likely PICC line associated. swtched to therapeutic Lovenox however now on hold due to concern for GI bleed (10) Superficial vein thrombosis: Code(s): I82.890 - Acute embolism and thrombosis of other specified veins Status: Acute Assessment and Plan: Venous Doppler shows thrombus in the left cephalic and basilic veins and left upper extremity. Continue DVT prophylaxis with Lovenox. Despite being on DVT prophylaxis now has DVT likely PICC line associated. switched to therapeutic Lovenox however now on hold due to concern for GI bleed (11) DVT (deep venous thrombosis): Code(s): I82.409 - Acute embolism and thrombosis of unspecified deep veins of unspecified lower extremity Status: Acute Assessment and Plan: Venous Doppler shows thrombus in the left cephalic and basilic veins and left upper extremity. Continue DVT prophylaxis with Lovenox. Despite being on DVT prophylaxis now has DVT likely PICC line associated. switched to therapeutic Lovenox however now on hold due to concern for GI bleed (12) Depression: Code(s): F32.A - Depression, unspecified Status: Acute Assessment and Plan: ongoing. lacks motivation Added zoloft added mirtazapine small dose avoid megace due to dvt (13) GI bleed: Code(s): K92.2 - Gastrointestinal hemorrhage, unspecified Status: Acute Assessment and Plan: Change in the color of the stool. Was pink-tinged. Now more maroon. Ask General surgery to see H&H however remains stable GI consulted Plan patient with c/o abdominal pain had CT scan of the abdomen and pelvic which showed sigmoid diverticulosis with 6.0 x 5.4 x 3.2 cm gas and feculent material containing cavity consistent with a contained bowel perforation which communicates to the sigmoid colon through a 1.8 x 1.3 cm defect in the wall of the colon. patient was seen by surgery service and was taken to the OR on 03/29 and had surgical repair had resection of her intestine and colostomy was placed and the surgery was uneventful, however later in the evening RR was called as patient was unresponsive and was intubated to protect patient airway. on 03/30 patient was extubated and ostomy is functioning now, patient fed via NG tube remain stable off vent in the ICU patient was transferred out of ICU to IMU on 03/31. Patient was seen by speech therapist and swallowing evaluation recommending patient can start puree diet will also continue tube feeding at half the rate to provide sufficient nutrition, however on 04/02 patient pulled out NG tube and refused to put NG tube back, ENT consulted for concern for tonsillar abscess. Disposition plan to go to [facility]/swing bed. Continue PT OT to see DVT prophylaxis - SCD, Lovenox Stress ulcer prophylaxis - PPI Nutrition -tube feeds Code Status - Full Code Subjective Date/time seen: 04/08/25 14:53 Interval history: Maroon-colored stool in bag. Denies any abdominal pain. Nursing reports she ate better this a.m.. Review of Systems Review of Systems: All systems reviewed & are unremarkable except as noted in HPI and below Exam Narrative: Patient is comfortable, NAD HEENT: eyes are clear and none icteric LUNGS:CTA HEART: RR S1S2 ABD: BS+, Soft and nontender midline suture with colostomy bag in place Lower extremities: no edema right upper extremity swelling noted. PICC line in situ SKIN: nonjaundiced Neuro: grossly intact. Objective Data Vital Signs Vital Signs: Vital Signs - 24 hr 04/07/25 20:00 04/07/25 20:49 04/07/25 21:37 Temperature 98.9 F Pulse Rate 100 Respiratory Rate 18 Blood Pressure 151/74 H Pulse Oximetry 100 100 Oxygen Delivery Room Air Room Air Fraction of Inspired Oxygen 21 04/08/25 06:00 04/08/25 08:00 04/08/25 14:00 Temperature 98 F 98.3 F Pulse Rate 89 103 H Respiratory Rate 18 16 Blood Pressure 144/74 H 139/78 Pulse Oximetry 100 100 Oxygen Delivery Room Air Fraction of Inspired Oxygen Intake/Output Intake/Output: Intake & Output 04/05/25 04/06/25 04/07/25 04/08/25 23:59 23:59 23:59 23:59 Intake Total 770 600 840 460 Output Total 1150 1375 900 660 [facility], [place] -[phone] Meds/Results Medications: Active Medications Generic Name Dose Route Start Last Admin Trade Name Freq PRN Reason Stop Dose Admin Acetaminophen 1,000 mg 04/04/25 14:11 04/07/25 17:28 Acetaminophen 500 Mg Tablet PO 1,000 mg Q6H PRN Administration fever or pain 1-3 Hydrocodone Bitart/Acetaminophen 1 tab 03/31/25 07:54 04/08/25 08:24 Hydrocodone/Acetaminophen (*Crx) 5-325 Mg Tablet PO 1 tab Q4H PRN Administration Pain Rated 4-6 Albuterol/Ipratropium 3 ml 03/30/25 04:29 03/30/25 05:49 Ipratropium 0.5 Mg/Albuterol Sulfate 2.5 Mg Ampul.Neb 3 Ml INHALATION 3 ml Q6HRT PRN Administration Wheezing Enoxaparin Sodium 80 mg 04/05/25 22:00 04/07/25 09:43 Enoxaparin 80 Mg/0.8 Ml Syringe SUB-Q 80 mg Q12HR JAYDEN Administration Hydromorphone HCl 0.5 mg 04/08/25 13:06 Hydromorphone Hcl Inj (*Crx) 2 Mg/Ml Vial IV PUSH Q4H PRN Pain Rated 5-10 if npo Levetiracetam 1,500 mg 04/07/25 21:00 04/08/25 08:26 Levetiracetam 500 Mg Tablet PO 1,500 mg Q12HR JAYDEN Administration Mirtazapine 7.5 mg 04/06/25 21:00 04/07/25 20:30 Mirtazapine 7.5 Mg Tablet PO 7.5 mg HS JAYDEN Administration Naloxone HCl 0.1 mg 03/29/25 00:02 Naloxone Hcl 0.4 Mg/Ml Vial IV PUSH Q2M PRN Opiate Reversal Ondansetron HCl 4 mg 03/26/25 14:08 Ondansetron Inj 4 Mg/2 Ml Vial IV PUSH Q6H PRN Nausea And Vomiting Pantoprazole Sodium 40 mg 04/08/25 21:00 Pantoprazole Sodium Iv 40 Mg Vial IV PUSH Q12HR JAYDEN Sertraline HCl 25 mg 04/06/25 18:00 04/08/25 08:26 Sertraline Hcl 25 Mg Tablet PO 25 mg QAM JAYDEN Administration Simethicone 80 mg 04/05/25 17:41 04/06/25 11:59 Simethicone 80 Mg Tab.Chew PO 80 mg QID PRN Administration Gas Discomfort Sodium Chloride 10 ml 03/29/25 14:00 04/08/25 04:12 Central Line Flush IV PUSH Not Given Q8HR JAYDEN Sodium Chloride 10 ml 03/29/25 09:36 Central Line Flush IV PUSH PRN PRN with TPN bag changes Sodium Chloride 20 ml 03/29/25 09:36 Central Line Flush IV PUSH PRN PRN after blood draws Radiology Results: ITS Impressions Modified Barium Swallow 03/27/25 15:26 IMPRESSION: Oropharyngeal dysphagia with intermittent laryngeal penetration with indeterminate/possible minimal aspiration. Please correlate with speech pathologist findings and specific feeding recommendations. Brain MRI 03/27/25 15:28 IMPRESSION: 1. Normal aging brain with minimal periventricular calcific white matter T2 hyperintensity consistent with chronic small vessel ischemic disease. No acute intracranial process. Cervical Spine MRI 03/28/25 08:39 Impression: Fractured the base of the odontoid process possibly extending from the C2 vertebral body detailed above, most compatible with acute fracture. There is minimal marrow edema and suggestion of possible early cortication along the fracture margins. Alignment appears unchanged as compared to prior CT scans. Anterior fusion of C5 and C6. Moderate to advanced degenerative spondylosis otherwise, as detailed above, with multilevel neural foraminal narrowing. Chest/Abdomen/Pelvis CT 03/28/25 11:45 IMPRESSION: 1. Sigmoid diverticulosis with 6.0 x 5.4 x 3.2 cm gas and feculent material containing cavity consistent with a contained bowel perforation which communicates to the sigmoid colon through a 1.8 x 1.3 cm defect in the wall of the colon. 2. Nonobstructing left nephrolithiasis. 3. Mild cardiomegaly. No acute cardiopulmonary disease. Head CT 03/29/25 09:51 IMPRESSION: 1. No acute intracranial process. 2. Age-related changes including mild to moderate diffuse volume loss and mild scattered white matter attenuation consistent with chronic small vessel ischemic disease. 3. Chronic left frontal craniotomy. Abdomen X-Ray 04/01/25 10:44 IMPRESSION: 1. Nasogastric tube in the stomach. Chest X-Ray 04/04/25 14:06 IMPRESSION: Inadvertent withdrawal of the previously identified PICC line, which now projects over the right subclavian vein, as detailed above. Venous Doppler Study 04/05/25 11:34 IMPRESSION: 1. Bilateral upper extremity venous thrombosis with deep venous thrombosis of the right subclavian and axillary veins. Labs Labs: Laboratory Results - last 24 hr 04/07/25 04/08/25 04/08/25 20:52 03:24 03:24 WBC 5.7 RBC 3.01 L Hgb 8.2 L 8.0 L Cancelled Hct 28.0 L 26.4 L MCV MCH MCHC RDW Plt Count MPV Immature Gran % (Auto) Neut % (Auto) Lymph % (Auto) [place] % (Auto) Eos % (Auto) Baso % (Auto) Lymph # (Auto) [place] # (Auto) Eos # (Auto) Baso # (Auto) Abs Immat Gran (auto) Absolute Neuts (auto) Absolute Nucleated RBC Band Neutrophils % Nucleated RBC % Platelet Estimate Hypochromasia Anisocytosis Target Cells Schistocytes Sodium Potassium Chloride Carbon Dioxide Anion Gap BUN Creatinine Estim Creat Clear Calc Estimated GFR Glucose Calcium Magnesium Total Bilirubin AST ALT Alkaline Phosphatase Total Protein Albumin 04/08/25 04/08/25 04/08/25 03:24 09:48 13:11 WBC RBC Hgb 7.6 L 7.4 L Hct Cancelled 26.0 L 25.2 L MCV 87.7 MCH 26.6 MCHC 30.3 L RDW 17.8 H Plt Count 281 MPV 10.1 Immature Gran % (Auto) 0.5 Neut % (Auto) 57.4 Lymph % (Auto) 33.4 [place] % (Auto) 6.8 Eos % (Auto) 1.4 Baso % (Auto) 0.5 Lymph # (Auto) 1.92 [place] # (Auto) 0.4 Eos # (Auto) 0.1 Baso # (Auto) 0.0 Abs Immat Gran (auto) 0.03 Absolute Neuts (auto) 3.3 Absolute Nucleated RBC 0.000 Band Neutrophils % Not Reportable Nucleated RBC % 0.0 Platelet Estimate Adequate Hypochromasia 1+ Anisocytosis 1+ Target Cells 1+ Schistocytes None seen Sodium 137 Potassium 3.7 Chloride 104 Carbon Dioxide 28 Anion Gap 5 BUN 15 Creatinine 0.54 L Estim Creat Clear Calc 75 Estimated GFR > 60 Glucose 108 Calcium 8.5 Magnesium 1.9 Total Bilirubin 0.2 AST 40 H ALT 34 Alkaline Phosphatase 244 H Total Protein 8.0 Albumin 3.1 L
--- NOTE | 2025-04-08 14:57 | PC.NURSE ---
I spoke with Dr. Lerma about this patient having IV medications ordered and thrombi in both upper extremities. Per his verbal order it is ok to start a peripheral IV in her left arm for her ordered medications.
--- NOTE | 2025-04-08 15:03 | PM.PNGS ---
Progress Note: A&P Assessment and Plan (1) Perforation bowel: Code(s): K63.1 - Perforation of intestine (nontraumatic) Status: Acute Assessment and Plan: Patient re-evaluated today for blood in her stool. She does have red/brown liquid stool coming from the ostomy. The stoma appears healthy with no areas of bleeding. Hgb low, but stable since admission. Continue PPI. Will hold her Lovenox for now and monitor serial labs. GI consulted and recommends continuous monitoring of H&H and transfusion as needed to keep HGB >7. General surgery will continue to monitor for signs of active bleeding. Plan I have discussed the patient's case and plan of care with Dr. Coley. Subjective Subjective Date/Time Seen: 04/08/25 15:03 Interval history: Patient stable overnight. Normal WBC. Afebrile. Hemoglobin slowly dropping, with last measurement at 7.4, dropped from 8.2 yesterday. However, she is chronically anemic. Ostomy bag with red-brown liquid stool. Exam GI: Inspection: non-distended, incision (healing well with noah intact, no erythema or drainage), scar (Lower midline) and other (ostomy pink and functioning) Auscultation: normal bowel sounds and Hypoactive bowel sounds present Other: Colostomy with red-brown liquid stool in bag. Stoma is pink and viable with no areas of bleeding. Exam limited d/t altered mental status, but grimacing and guarding noted with palpation of RUQ. Objective Data Vital Signs Vital Signs: Vital Signs - 24 hr 04/07/25 20:00 04/07/25 20:49 04/07/25 21:37 Temperature 98.9 F Pulse Rate 100 Respiratory Rate 18 Blood Pressure 151/74 H Pulse Oximetry 100 100 Oxygen Delivery Room Air Room Air Fraction of Inspired Oxygen 21 04/08/25 06:00 04/08/25 08:00 04/08/25 14:00 Temperature 98 F 98.3 F Pulse Rate 89 103 H Respiratory Rate 18 16 Blood Pressure 144/74 H 139/78 Pulse Oximetry 100 100 Oxygen Delivery Room Air Fraction of Inspired Oxygen Intake/Output Intake/Output: Intake & Output 04/05/25 04/06/25 04/07/25 04/08/25 23:59 23:59 23:59 23:59 Intake Total 770 600 840 460 Output Total 1150 1375 900 660 Balance -380 -775 -60 -200 Meds/Results Medications: Active Medications Generic Name Dose Route Start Last Admin Trade Name Freq PRN Reason Stop Dose Admin Acetaminophen 1,000 mg 04/04/25 14:11 04/07/25 17:28 Acetaminophen 500 Mg Tablet PO 1,000 mg Q6H PRN Administration fever or pain 1-3 Hydrocodone Bitart/Acetaminophen 1 tab 03/31/25 07:54 04/08/25 08:24 Hydrocodone/Acetaminophen (*Crx) 5-325 Mg Tablet PO 1 tab Q4H PRN Administration Pain Rated 4-6 Albuterol/Ipratropium 3 ml 03/30/25 04:29 03/30/25 05:49 Ipratropium 0.5 Mg/Albuterol Sulfate 2.5 Mg Ampul.Neb 3 Ml INHALATION 3 ml Q6HRT PRN Administration Wheezing Enoxaparin Sodium 80 mg 04/05/25 22:00 04/07/25 09:43 Enoxaparin 80 Mg/0.8 Ml Syringe SUB-Q 80 mg Q12HR JAYDEN Administration Hydromorphone HCl 0.5 mg 04/08/25 13:06 Hydromorphone Hcl Inj (*Crx) 2 Mg/Ml Vial IV PUSH Q4H PRN Pain Rated 5-10 if npo Levetiracetam 1,500 mg 04/07/25 21:00 04/08/25 08:26 Levetiracetam 500 Mg Tablet PO 1,500 mg Q12HR JAYDEN Administration Mirtazapine 7.5 mg 04/06/25 21:00 04/07/25 20:30 Mirtazapine 7.5 Mg Tablet PO 7.5 mg HS JAYDEN Administration Naloxone HCl 0.1 mg 03/29/25 00:02 Naloxone Hcl 0.4 Mg/Ml Vial IV PUSH Q2M PRN Opiate Reversal Ondansetron HCl 4 mg 03/26/25 14:08 Ondansetron Inj 4 Mg/2 Ml Vial IV PUSH Q6H PRN Nausea And Vomiting Pantoprazole Sodium 40 mg 04/08/25 21:00 Pantoprazole Sodium Iv 40 Mg Vial IV PUSH Q12HR JAYDEN Sertraline HCl 25 mg 04/06/25 18:00 04/08/25 08:26 Sertraline Hcl 25 Mg Tablet PO 25 mg QAM JAYDEN Administration Simethicone 80 mg 04/05/25 17:41 04/06/25 11:59 Simethicone 80 Mg Tab.Chew PO 80 mg QID PRN Administration Gas Discomfort Sodium Chloride 10 ml 03/29/25 14:00 04/08/25 04:12 Central Line Flush IV PUSH Not Given Q8HR JAYDEN Sodium Chloride 10 ml 03/29/25 09:36 Central Line Flush IV PUSH PRN PRN with TPN bag changes Sodium Chloride 20 ml 03/29/25 09:36 Central Line Flush IV PUSH PRN PRN after blood draws Radiology Results: ITS Impressions Modified Barium Swallow 03/27/25 15:26 IMPRESSION: Oropharyngeal dysphagia with intermittent laryngeal penetration with indeterminate/possible minimal aspiration. Please correlate with speech pathologist findings and specific feeding recommendations. Brain MRI 03/27/25 15:28 IMPRESSION: 1. Normal aging brain with minimal periventricular calcific white matter T2 hyperintensity consistent with chronic small vessel ischemic disease. No acute intracranial process. Cervical Spine MRI 03/28/25 08:39 Impression: Fractured the base of the odontoid process possibly extending from the C2 vertebral body detailed above, most compatible with acute fracture. There is minimal marrow edema and suggestion of possible early cortication along the fracture margins. Alignment appears unchanged as compared to prior CT scans. Anterior fusion of C5 and C6. Moderate to advanced degenerative spondylosis otherwise, as detailed above, with multilevel neural foraminal narrowing. Chest/Abdomen/Pelvis CT 03/28/25 11:45 IMPRESSION: 1. Sigmoid diverticulosis with 6.0 x 5.4 x 3.2 cm gas and feculent material containing cavity consistent with a contained bowel perforation which communicates to the sigmoid colon through a 1.8 x 1.3 cm defect in the wall of the colon. 2. Nonobstructing left nephrolithiasis. 3. Mild cardiomegaly. No acute cardiopulmonary disease. Head CT 03/29/25 09:51 IMPRESSION: 1. No acute intracranial process. 2. Age-related changes including mild to moderate diffuse volume loss and mild scattered white matter attenuation consistent with chronic small vessel ischemic disease. 3. Chronic left frontal craniotomy. Abdomen X-Ray 04/01/25 10:44 IMPRESSION: 1. Nasogastric tube in the stomach. Chest X-Ray 04/04/25 14:06 IMPRESSION: Inadvertent withdrawal of the previously identified PICC line, which now projects over the right subclavian vein, as detailed above. Venous Doppler Study 04/05/25 11:34 IMPRESSION: 1. Bilateral upper extremity venous thrombosis with deep venous thrombosis of the right subclavian and axillary veins. Labs Labs: Laboratory Results - last 24 hr 04/07/25 04/08/25 04/08/25 20:52 03:24 03:24 WBC 5.7 RBC 3.01 L Hgb 8.2 L 8.0 L Cancelled Hct 28.0 L 26.4 L MCV MCH MCHC RDW Plt Count MPV Immature Gran % (Auto) Neut % (Auto) Lymph % (Auto) [place] % (Auto) Eos % (Auto) Baso % (Auto) Lymph # (Auto) [place] # (Auto) Eos # (Auto) Baso # (Auto) Abs Immat Gran (auto) Absolute Neuts (auto) Absolute Nucleated RBC Band Neutrophils % Nucleated RBC % Platelet Estimate Hypochromasia Anisocytosis Target Cells Schistocytes Sodium Potassium Chloride Carbon Dioxide Anion Gap BUN Creatinine Estim Creat Clear Calc Estimated GFR Glucose Calcium Magnesium Total Bilirubin AST ALT Alkaline Phosphatase Total Protein Albumin 04/08/25 04/08/25 04/08/25 03:24 09:48 13:11 WBC RBC Hgb 7.6 L 7.4 L Hct Cancelled 26.0 L 25.2 L MCV 87.7 MCH 26.6 MCHC 30.3 L RDW 17.8 H Plt Count 281 MPV 10.1 Immature Gran % (Auto) 0.5 Neut % (Auto) 57.4 Lymph % (Auto) 33.4 [place] % (Auto) 6.8 Eos % (Auto) 1.4 Baso % (Auto) 0.5 Lymph # (Auto) 1.92 [place] # (Auto) 0.4 Eos # (Auto) 0.1 Baso # (Auto) 0.0 Abs Immat Gran (auto) 0.03 Absolute Neuts (auto) 3.3 Absolute Nucleated RBC 0.000 Band Neutrophils % Not Reportable Nucleated RBC % 0.0 Platelet Estimate Adequate Hypochromasia 1+ Anisocytosis 1+ Target Cells 1+ Schistocytes None seen Sodium 137 Potassium 3.7 Chloride 104 Carbon Dioxide 28 Anion Gap 5 BUN 15 Creatinine 0.54 L Estim Creat Clear Calc 75 Estimated GFR > 60 Glucose 108 Calcium 8.5 Magnesium 1.9 Total Bilirubin 0.2 AST 40 H ALT 34 Alkaline Phosphatase 244 H Total Protein 8.0 Albumin 3.1 L
[2025-04-08] MEDS: HYDROmorphone HCL INJ (*CRX) 2 MG/ML VIAL 0.5 MG IV PUSH ×2 (16:45→23:46)
[2025-04-08] MEDS: CENTRAL LINE FLUSH 10 ML IV PUSH (16:51)
[2025-04-08 18:25] LABS: Hematocrit 26.2 % (37.0-47.0); Hemoglobin 7.8 g/dL (12.0-15.0)
[2025-04-08] MEDS: MIRTAZAPINE 7.5 MG TABLET PO (21:09)
[2025-04-08] MEDS: PANTOPRAZOLE SODIUM IV 40 MG VIAL IV PUSH (21:09)
[2025-04-08 21:26] VITALS: BP 137/73; PULSE 108; RESP 20; TEMP 37.1; O2SAT 100
[2025-04-08 23:57] LABS: Hemoglobin 7.3 g/dL (12.0-15.0)
[2025-04-09 05:40] LABS: Basophils Percent Auto 0.4 % (0.2-1.2); Eosinophils Percent Auto 0.5 % (0-4.4); Hematocrit 26.7 % (37.0-47.0); Hemoglobin 7.8 g/dL (12.0-15.0); Immature Granulocyte Absolute 0.03 K/mm3 (0.00-0.031); Immature Granulocyte Percent A 0.5 % (0-0.5); Lymphocytes Absolute Auto 1.46 K/mm3 (0.9-3.2); Lymphocytes Percent Auto 26.1 % (18.3-44.2); Mean Corpuscular HGB Conc 29.2 g/dl (32-36); Mean Corpuscular Hemoglobin 26.4 pg (26-34); Mean Corpuscular Volume 90.2 fl (80-100); Mean Platelet Volume 10.1 fl (7.4-10.4); Monocytes Absolute Auto 0.4 K/mm3 (0.1-0.6); Neutrophils Absolute Auto 3.7 K/mm3 (1.3-6.7); Neutrophils Percent Auto 65.5 % (45.5-73.1); Platelet Count Result 287 k/mm3 (150-375); Red Blood Count 2.96 M/mm3 (4.2-5.4); Red Cell Distribution Width 17.8 % (11.5-14.5); White Blood Count 5.6 K/mm3 (4.5-10.0)
[2025-04-09 05:56] LABS: Alanine Aminotransferase 29 U/L (6-35); Alkaline Phosphatase 218 U/L (38-126); Anion Gap 5 mmol/L (4-12); Aspartate Amino Transferase 39 U/L (14-36); Bilirubin,Total 0.2 mg/dL (0.2-1.3); Blood Urea Nitrogen 14 mg/dL (7-17); Calcium 8.6 mg/dL (8.4-10.2); Carbon Dioxide 27 mmol/L (22-30); Chloride 103 mmol/L (98-107); Estimated CRCL calculation 70 ml/min; Estimated Glomerular Filt Rate > 60; Glucose 105 mg/dL (65-110); Magnesium 2.1 mg/dL (1.6-2.3); Potassium 3.9 mmol/L (3.4-5.0); Sodium 135 mmol/L (137-145); Total Protein 7.4 g/dL (6.3-8.2)
[2025-04-09 05:58] VITALS: BP 151/66; PULSE 96; RESP 16; TEMP 36.8; O2SAT 100
[2025-04-09 06:31] LABS: Anisocytosis 1+; Hypochromasia 1+; Platelet Estimate Adequate (Adequate); Schistocytes None Seen
[2025-04-09] MEDS: HYDROmorphone HCL INJ (*CRX) 2 MG/ML VIAL 0.5 MG IV PUSH (08:04)
[2025-04-09] MEDS: PANTOPRAZOLE SODIUM IV 40 MG VIAL IV PUSH ×2 (08:06→21:48)
[2025-04-09] MEDS: levETIRAcetam 500 MG TABLET 1500 MG PO ×2 (08:07→21:48)
[2025-04-09] MEDS: SIMETHICONE 80 MG TAB.CHEW PO (08:07)
[2025-04-09] MEDS: SERTRALINE HCL 25 MG TABLET PO (08:07)
--- NOTE | 2025-04-09 09:29 | PCWOUND ---
WOCN NOTE Patient assessed for ostomy teaching. Patient unable to focus or perform tasks to change ostomy appliance. No further education needs at this time.
--- NOTE | 2025-04-09 11:55 | P.PNIM_ITS ---
Progress Note: A&P Assessment and Plan (1) Acute respiratory failure: Code(s): J96.00 - Acute respiratory failure, unspecified whether with hypoxia or hypercapnia Status: Acute Assessment and Plan: * Acute Respiratory failure secondary to altered mental status and inability to protect airway * Patient was intubated and extubated on 03/30 * Currently on room air * Avoid sedatives * Incentive spirometry patient can do it * Bronchodilators (2) Sepsis: Code(s): A41.9 - Sepsis, unspecified organism Status: Acute Assessment and Plan: * Sepsis secondary to bowel perforation, peritonitis, UTI * Blood and urine cultures have been ordered no growth. * Zosyn completed treatment. * Sepsis resolved. (3) Altered mental status: Code(s): R41.82 - Altered mental status, unspecified Status: Acute Assessment and Plan: Patient presented with altered mental status. Patient also has history of seizure disorder and may have had seizure and be postictal. Other possibilities are sepsis as she had a perforated bowel and UTI Overnight rapid response could be secondary to deterioration of mental status from Dilaudid. MRI brain done on 03/27 did not showed any acute CVA and showed 1. Normal aging brain with minimal periventricular calcific white matter T2 hyperintensity consistent with chronic small vessel ischemic disease. No acute intracranial process EEG as below Recent TSH was normal Normal ammonia Sedation held and now patient is following commands and moving all 4 extremities Neurology following. Avoid sedatives and monitor. (4) C2 cervical fracture: Code(s): S12.100A - Unspecified displaced fracture of second cervical vertebra, initial encounter for closed fracture Status: Inactive Assessment and Plan: Patient had a C2 fracture from fall few weeks ago. Patient was evaluated by Neurosurgery. MRI C-spine done on this hospitalization showed following She currently in a soft C-collar. Impression: Fractured the base of the odontoid process possibly extending from the C2 vertebral body detailed above, most compatible with acute fracture. There is minimal marrow edema and suggestion of possible early cortication along the fra cture margins. Alignment appears unchanged as compared to prior CT scans. Anterior fusion of C5 and C6. Moderate to advanced degenerative spondylosis otherwise, as detailed above, with multilevel neural foraminal narrowing. Continue C-collar at all times (5) Dysphagia: Qualifiers: Dysphagia type: oropharyngeal phase Qualified Code(s): R13.12 - Dysphagia, oropharyngeal phase Code(s): R13.10 - Dysphagia, unspecified Status: Acute Assessment and Plan: Patient failed her swallow study prior to surgery. Speech Therapy following. Started on oral diet and tolerating follow calorie count (6) UTI (urinary tract infection): Code(s): N39.0 - Urinary tract infection, site not specified Status: Resolved Assessment and Plan: See above (7) Seizure disorder: Code(s): G40.909 - Epilepsy, unspecified, not intractable, without status epilepticus Status: Acute Assessment and Plan: History of seizure disorder. Continue Keppra. Currently sedated with Versed 03/28 EEG. IMPRESSION This is an abnormal EEG due to following 1. Nearly continuous focal slow wave activity intermixed with sharp wave transients were seen over left frontal area. This may relate to having previous surgery in this area. Focal slowing is suggestive of underlying structural lesion. Sharp transients are considered nonspecific focal interictal abnormality. Clinical and radiographic correlation are recommended. 2. Mild his background slowing suggestive of generalized encephalopathy (8) Perforation bowel: Code(s): K63.1 - Perforation of intestine (nontraumatic) Status: Acute Assessment and Plan: 03/28 Status post 1. Exploratory laparotomy 2. Sigmoid colon resection with end descending colostomy 3. Ileal resection with [id number] ileal anastomosis Management per General surgery. Surgery okayed to restart lovenox. Antibiotics as above completed course (9) Anemia: Code(s): D64.9 - Anemia, unspecified Status: Acute Assessment and Plan: 03/30 Hemoglobin 6.2 this morning likely secondary to surgery and hemodilution. No objective evidence of bleeding at this time. Stool is brown Transfuse 1 unit PRBC and repeat hemoglobin. Coags if you Continue DVT prophylaxis Lovenox at this time. Continue PPI Hemoglobin stable at this time monitor. Despite being on DVT prophylaxis now has DVT likely PICC line associated. 6/4 H&H 7.8/26.7. (10) Superficial vein thrombosis: Code(s): I82.890 - Acute embolism and thrombosis of other specified veins Status: Acute Assessment and Plan: Venous Doppler shows thrombus in the left cephalic and basilic veins and left upper extremity. Continue DVT prophylaxis with Lovenox. Despite being on DVT prophylaxis now has DVT likely PICC line associated. switched to therapeutic Lovenox. (11) DVT (deep venous thrombosis): Code(s): I82.409 - Acute embolism and thrombosis of unspecified deep veins of unspecified lower extremity Status: Acute Assessment and Plan: Venous Doppler shows thrombus in the left cephalic and basilic veins and left upper extremity. Continue DVT prophylaxis with Lovenox. Despite being on DVT prophylaxis now has DVT likely PICC line associated. switched to therapeutic Lovenox however now on hold due to concern for GI bleed (12) Depression: Code(s): F32.A - Depression, unspecified Status: Acute Assessment and Plan: ongoing. lacks motivation Added zoloft added mirtazapine small dose avoid megace due to dvt (13) GI bleed: Code(s): K92.2 - Gastrointestinal hemorrhage, unspecified Status: Acute Assessment and Plan: Change in the color of the stool. Was pink-tinged. Now more maroon. Ask General surgery to see H&H however remains stable GI consulted Plan patient with c/o abdominal pain had CT scan of the abdomen and pelvic which showed sigmoid diverticulosis with 6.0 x 5.4 x 3.2 cm gas and feculent material containing cavity consistent with a contained bowel perforation which communicates to the sigmoid colon through a 1.8 x 1.3 cm defect in the wall of the colon. patient was seen by surgery service and was taken to the OR on 03/29 and had surgical repair had resection of her intestine and colostomy was placed and the surgery was uneventful, however later in the evening RR was called as patient was unresponsive and was intubated to protect patient airway. on 03/30 p atient was extubated and ostomy is functioning now, patient fed via NG tube remain stable off vent in the ICU patient was transferred out of ICU to IMU on 03/31. Patient was seen by speech therapist and swallowing evaluation recommending patient can start puree diet will also continue tube feeding at half the rate to provide sufficient nutrition, however on 04/02 patient pulled out NG tube and refused to put NG tube back, ENT consulted for concern for tonsillar abscess. Disposition plan to go to [place] [facility]/swing bed. Continue PT OT to see DVT prophylaxis - SCD, Lovenox Stress ulcer prophylaxis - PPI Nutrition -tube feeds Code Status - Full Code Subjective Date/time seen: 04/09/25 11:55 Interval history: Patient sitting up in chair with son at bedside. Patient not talking when asked questions. No grimacing or moaning. Nurse reports that patient will go through periods where she will not answer questions and occasionally will answer questions. Review of Systems Review of Systems: All systems reviewed & are unremarkable except as noted in HPI and below Exam Const: General: comfortable and no acute distress Resp: Effort & Inspection: normal respiratory effort Auscultation: clear to auscultation bilaterally Cardio: Rate: regular rate Rhythm: regular rhythm GI: GI Palp: Yes Soft to palpation Auscultation: normal bowel sounds Other: Colostomy stoma pink, no blood in colostomy bag. Extrem: Other: no edema right upper extremity swelling noted. PICC line in situ. Psych: Other: Not wanting to answer questions today. Objective Data Vital Signs Vital Signs: Vital Signs - 24 hr 04/08/25 14:00 04/08/25 20:00 04/08/25 21:26 Temperature 98.3 F 98.7 F Pulse Rate 103 H 108 H Respiratory Rate 16 20 Blood Pressure 139/78 137/73 Pulse Oximetry 100 100 Oxygen Delivery Room Air 04/09/25 05:58 04/09/25 08:00 Temperature 98.3 F Pulse Rate 96 Respiratory Rate 16 Blood Pressure 151/66 H Pulse Oximetry 100 Oxygen Delivery Room Air Intake/Output Intake/Output: Intake & Output 04/06/25 04/07/25 04/08/25 04/09/25 23:59 23:59 23:59 23:59 Intake Total 600 840 580 150 Output Total 4579 538 1564 600 [facility] -775 -60 -555 -450 Meds/Results Medications: Active Medications Generic Name Dose Route Start Last Admin Trade Name Freq PRN Reason Stop Dose Admin Acetaminophen 1,000 mg 04/04/25 14:11 04/07/25 17:28 Acetaminophen 500 Mg Tablet PO 1,000 mg Q6H PRN Administration fever or pain 1-3 Hydrocodone Bitart/Acetaminophen 1 tab 03/31/25 07:54 04/08/25 08:24 Hydrocodone/Acetaminophen (*Crx) 5-325 Mg Tablet PO 1 tab Q4H PRN Administration Pain Rated 4-6 Albuterol/Ipratropium 3 ml 03/30/25 04:29 03/30/25 05:49 Ipratropium 0.5 Mg/Albuterol Sulfate 2.5 Mg Ampul.Neb 3 Ml INHALATION 3 ml Q6HRT PRN Administration Wheezing Enoxaparin Sodium 80 mg 04/05/25 22:00 04/07/25 09:43 Enoxaparin 80 Mg/0.8 Ml Syringe SUB-Q 80 mg Q12HR JAYDEN Administration Hydromorphone HCl 0.5 mg 04/08/25 13:06 04/09/25 08:04 Hydromorphone Hcl Inj (*Crx) 2 Mg/Ml Vial IV PUSH 0.5 mg Q4H PRN Administration Pain Rated 5-10 if npo Levetiracetam 1,500 mg 04/07/25 21:00 04/09/25 08:07 Levetiracetam 500 Mg Tablet PO 1,500 mg Q12HR JAYDEN Administration Mirtazapine 7.5 mg 04/06/25 21:00 04/08/25 21:09 Mirtazapine 7.5 Mg Tablet PO 7.5 mg HS JAYDEN Administration Naloxone HCl 0.1 mg 03/29/25 00:02 Naloxone Hcl 0.4 Mg/Ml Vial IV PUSH Q2M PRN Opiate Reversal Ondansetron HCl 4 mg 03/26/25 14:08 Ondansetron Inj 4 Mg/2 Ml Vial IV PUSH Q6H PRN Nausea And Vomiting Pantoprazole Sodium 40 mg 04/08/25 21:00 04/09/25 08:06 Pantoprazole Sodium Iv 40 Mg Vial IV PUSH 40 mg Q12HR JAYDEN Administration Sertraline HCl 25 mg 04/06/25 18:00 04/09/25 08:07 Sertraline Hcl 25 Mg Tablet PO 25 mg QAM JAYDEN Administration Simethicone 80 mg 04/05/25 17:41 04/09/25 08:07 Simethicone 80 Mg Tab.Chew PO 80 mg QID PRN Administration Gas Discomfort Sodium Chloride 10 ml 03/29/25 14:00 04/09/25 04:35 Central Line Flush IV PUSH Not Given Q8HR JAYDEN Sodium Chloride 10 ml 03/29/25 09:36 Central Line Flush IV PUSH PRN PRN with TPN bag changes Sodium Chloride 20 ml 03/29/25 09:36 Central Line Flush IV PUSH PRN PRN after blood draws Radiology Results: ITS Impressions Modified Barium Swallow 03/27/25 15:26 IMPRESSION: Oropharyngeal dysphagia with intermittent laryngeal penetration with indeterminate/possible minimal aspiration. Please correlate with speech pathologist findings and specific feeding recommendations. Brain MRI 03/27/25 15:28 IMPRESSION: 1. Normal aging brain with minimal periventricular calcific white matter T2 hyperintensity consistent with chronic small vessel ischemic disease. No acute intracranial process. Cervical Spine MRI 03/28/25 08:39 Impression: Fractured the base of the odontoid process possibly extending from the C2 vertebral body detailed above, most compatible with acute fracture. There is minimal marrow edema and suggestion of possible early cortication along the fracture margins. Alignment appears unchanged as compared to prior CT scans. Anterior fusion of C5 and C6. Moderate to advanced degenerative spondylosis otherwise, as detailed above, with multilevel neural foraminal narrowing. Chest/Abdomen/Pelvis CT 03/28/25 11:45 IMPRESSION: 1. Sigmoid diverticulosis with 6.0 x 5.4 x 3.2 cm gas and feculent material containing cavity consistent with a contained bowel perforation which communicates to the sigmoid colon through a 1.8 x 1.3 cm defect in the wall of the colon. 2. Nonobstructing left nephrolithiasis. 3. Mild cardiomegaly. No acute cardiopulmonary disease. Head CT 03/29/25 09:51 IMPRESSION: 1. No acute intracranial process. 2. Age-related changes including mild to moderate diffuse volume loss and mild scattered white matter attenuation consistent with chronic small vessel ischemic disease. 3. Chronic left frontal craniotomy. Abdomen X-Ray 04/01/25 10:44 IMPRESSION: 1. Nasogastric tube in the stomach. Chest X-Ray 04/04/25 14:06 IMPRESSION: Inadvertent withdrawal of the previously identified PICC line, which now projects over the right subclavian vein, as detailed above. Venous Doppler Study 04/05/25 11:34 IMPRESSION: 1. Bilateral upper extremity venous thrombosis with deep venous thrombosis of the right subclavian and axillary veins. Labs Labs: Laboratory Results - last 24 hr 04/08/25 04/08/25 04/08/25 13:11 18:14 23:49 WBC RBC Hgb 7.4 L 7.8 L 7.3 L Hct 25.2 L 26.2 L 25.0 L MCV MCH MCHC RDW Plt Count MPV Immature Gran % (Auto) Neut % (Auto) Lymph % (Auto) [place] % (Auto) Eos % (Auto) Baso % (Auto) Lymph # (Auto) [place] # (Auto) Eos # (Auto) Baso # (Auto) Abs Immat Gran (auto) Absolute Neuts (auto) Absolute Nucleated RBC Band Neutrophils % Nucleated RBC % Platelet Estimate Hypochromasia Anisocytosis Schistocytes Sodium Potassium Chloride Carbon Dioxide Anion Gap BUN Creatinine Estim Creat Clear Calc Estimated GFR Glucose Calcium Magnesium Total Bilirubin AST ALT Alkaline Phosphatase Total Protein Albumin 04/09/25 04:59 WBC 5.6 RBC 2.96 L Hgb 7.8 L Hct 26.7 L MCV 90.2 MCH 26.4 MCHC 29.2 L RDW 17.8 H Plt Count 287 MPV 10.1 Immature Gran % (Auto) 0.5 Neut % (Auto) 65.5 Lymph % (Auto) 26.1 [place] % (Auto) 7.0 Eos % (Auto) 0.5 Baso % (Auto) 0.4 Lymph # (Auto) 1.46 [place] # (Auto) 0.4 Eos # (Auto) 0.0 Baso # (Auto) 0.0 Abs Immat Gran (auto) 0.03 Absolute Neuts (auto) 3.7 Absolute Nucleated RBC 0.000 Band Neutrophils % Not Reportable Nucleated RBC % 0.0 Platelet Estimate Adequate Hypochromasia 1+ Anisocytosis 1+ Schistocytes None seen Sodium 135 L Potassium 3.9 Chloride 103 Carbon Dioxide 27 Anion Gap 5 BUN 14 Creatinine 0.58 L Estim Creat Clear Calc 70 Estimated GFR > 60 Glucose 105 Calcium 8.6 Magnesium 2.1 Total Bilirubin 0.2 AST 39 H ALT 29 Alkaline Phosphatase 218 H Total Protein 7.4 Albumin 3.0 L Quality VTE Prophylaxis VTE prophylaxis: mechanical ordered and pharmacologic ordered
--- NOTE | 2025-04-09 13:22 | P.PNGS_ITS ---
Progress Note: A&P Assessment and Plan (1) Perforation bowel: Code(s): K63.1 - Perforation of intestine (nontraumatic) Status: Acute Assessment and Plan: * Reportedly, less blood in stool today. Ostomy functioning well. The stoma appears healthy with no areas of bleeding. Hgb low, but stable since admission. Continue PPI. Will hold her Lovenox for now and monitor serial labs. GI consulted and recommends continuous monitoring of H&H and transfusion as needed to keep HGB >7. General surgery will continue to monitor for signs of active bleeding. Plan I have discussed the patient's case and plan of care with Dr. Coley. Subjective Subjective Date/Time Seen: 04/09/25 13:22 Interval history: No acute events overnight. Patient doing well today. Patient was NPO overnight d/t concern for possible GI bleed, but resumed on normal diet today. Colostomy bag empty upon today's visit, but nurse reports that stool was more brown and normal today. Exam GI: Inspection: non-distended, incision (healing well with noah intact, no erythema or drainage), scar (Lower midline) and other (ostomy pink and funct ioning) Auscultation: normal bowel sounds and Hypoactive bowel sounds present Other: Colostomy bag empty. Stoma is pink and viable with no areas of bleeding. No tenderness to palpation. Objective Data Vital Signs Vital Signs: Vital Signs - 24 hr 04/08/25 14:00 04/08/25 20:00 04/08/25 21:26 Temperature 98.3 F 98.7 F Pulse Rate 103 H 108 H Respiratory Rate 16 20 Blood Pressure 139/78 137/73 Pulse Oximetry 100 100 Oxygen Delivery Room Air 04/09/25 05:58 04/09/25 08:00 Temperature 98.3 F Pulse Rate 96 Respiratory Rate 16 Blood Pressure 151/66 H Pulse Oximetry 100 Oxygen Delivery Room Air Intake/Output Intake/Output: Intake & Output 04/06/25 04/07/25 04/08/25 04/09/25 23:59 23:59 23:59 23:59 Intake Total 600 840 580 150 Output Total 6551 897 5697 600 Balance -775 -60 -555 -450 Meds/Results Medications: Active Medications Generic Name Dose Route Start Last Admin Trade Name Freq PRN Reason Stop Dose Admin Acetaminophen 1,000 mg 04/04/25 14:11 04/07/25 17:28 Acetaminophen 500 Mg Tablet PO 1,000 mg Q6H PRN Administration fever or pain 1-3 Hydrocodone Bitart/Acetaminophen 1 tab 03/31/25 07:54 04/08/25 08:24 Hydrocodone/Acetaminophen (*Crx) 5-325 Mg Tablet PO 1 tab Q4H PRN Administration Pain Rated 4-6 Albuterol/Ipratropium 3 ml 03/30/25 04:29 03/30/25 05:49 Ipratropium 0.5 Mg/Albuterol Sulfate 2.5 Mg Ampul.Neb 3 Ml INHALATION 3 ml Q6HRT PRN Administration Wheezing Enoxaparin Sodium 80 mg 04/05/25 22:00 04/07/25 09:43 Enoxaparin 80 Mg/0.8 Ml Syringe SUB-Q 80 mg Q12HR JAYDEN Administration Hydromorphone HCl 0.5 mg 04/08/25 13:06 04/09/25 08:04 Hydromorphone Hcl Inj (*Crx) 2 Mg/Ml Vial IV PUSH 0.5 mg Q4H PRN Administration Pain Rated 5-10 if npo Levetiracetam 1,500 mg 04/07/25 21:00 04/09/25 08:07 Levetiracetam 500 Mg Tablet PO 1,500 mg Q12HR JAYDEN Administration Mirtazapine 7.5 mg 04/06/25 21:00 04/08/25 21:09 Mirtazapine 7.5 Mg Tablet PO 7.5 mg HS JAYDEN Administration Naloxone HCl 0.1 mg 03/29/25 00:02 Naloxone Hcl 0.4 Mg/Ml Vial IV PUSH Q2M PRN Opiate Reversal Ondansetron HCl 4 mg 03/26/25 14:08 Ondansetron Inj 4 Mg/2 Ml Vial IV PUSH Q6H PRN Nausea And Vomiting Pantoprazole Sodium 40 mg 04/08/25 21:00 04/09/25 08:06 Pantoprazole Sodium Iv 40 Mg Vial IV PUSH 40 mg Q12HR JAYDEN Administration Sertraline HCl 25 mg 04/06/25 18:00 04/09/25 08:07 Sertraline Hcl 25 Mg Tablet PO 25 mg QAM JAYDEN Administration Simethicone 80 mg 04/05/25 17:41 04/09/25 08:07 Simethicone 80 Mg Tab.Chew PO 80 mg QID PRN Administration Gas Discomfort Sodium Chloride 10 ml 03/29/25 14:00 04/09/25 04:35 Central Line Flush IV PUSH Not Given Q8HR JAYDEN Sodium Chloride 10 ml 03/29/25 09:36 Central Line Flush IV PUSH PRN PRN with TPN bag changes Sodium Chloride 20 ml 03/29/25 09:36 Central Line Flush IV PUSH PRN PRN after blood draws Radiology Results: ITS Impressions Modified Barium Swallow 03/27/25 15:26 IMPRESSION: Oropharyngeal dysphagia with intermittent laryngeal penetration with indeterminate/possible minimal aspiration. Please correlate with speech pathologist findings and specific feeding recommendations. Brain MRI 03/27/25 15:28 IMPRESSION: 1. Normal aging brain with minimal periventricular calcific white matter T2 hyperintensity consistent with chronic small vessel ischemic disease. No acute intracranial process. Cervical Spine MRI 03/28/25 08:39 Impression: Fractured the base of the odontoid process possibly extending from the C2 vertebral body detailed above, most compatible with acute fracture. There is minimal marrow edema and suggestion of possible early cortication along the fracture margins. Alignment appears unchanged as compared to prior CT scans. Anterior fusion of C5 and C6. Moderate to advanced degenerative spondylosis otherwise, as detailed above, with multilevel neural foraminal narrowing. Chest/Abdomen/Pelvis CT 03/28/25 11:45 IMPRESSION: 1. Sigmoid diverticulosis with 6.0 x 5.4 x 3.2 cm gas and feculent material containing cavity consistent with a contained bowel perforation which commu nicates to the sigmoid colon through a 1.8 x 1.3 cm defect in the wall of the colon. 2. Nonobstructing left nephrolithiasis. 3. Mild cardiomegaly. No acute cardiopulmonary disease. Head CT 03/29/25 09:51 IMPRESSION: 1. No acute intracranial process. 2. Age-related changes including mild to moderate diffuse volume loss and mild scattered white matter attenuation consistent with chronic small vessel ischemic disease. 3. Chronic left frontal craniotomy. Abdomen X-Ray 04/01/25 10:44 IMPRESSION: 1. Nasogastric tube in the stomach. Chest X-Ray 04/04/25 14:06 IMPRESSION: Inadvertent withdrawal of the previously identified PICC line, which now projects over the right subclavian vein, as detailed above. Venous Doppler Study 04/05/25 11:34 IMPRESSION: 1. Bilateral upper extremity venous thrombosis with deep venous thrombosis of the right subclavian and axillary veins. Labs Labs: Laboratory Results - last 24 hr 04/08/25 04/08/25 04/09/25 18:14 23:49 04:59 WBC 5.6 RBC 2.96 L Hgb 7.8 L 7.3 L 7.8 L Hct 26.2 L 25.0 L 26.7 L MCV 90.2 MCH 26.4 MCHC 29.2 L RDW 17.8 H Plt Count 287 MPV 10.1 Immature Gran % (Auto) 0.5 Neut % (Auto) 65.5 Lymph % (Auto) 26.1 [place] % (Auto) 7.0 Eos % (Auto) 0.5 Baso % (Auto) 0.4 Lymph # (Auto) 1.46 [place] # (Auto) 0.4 Eos # (Auto) 0.0 Baso # (Auto) 0.0 Abs Immat Gran (auto) 0.03 Absolute Neuts (auto) 3.7 Absolute Nucleated RBC 0.000 Band Neutrophils % Not Reportable Nucleated RBC % 0.0 Platelet Estimate Adequate Hypochromasia 1+ Anisocytosis 1+ Schistocytes None seen Sodium 135 L Potassium 3.9 Chloride 103 Carbon Dioxide 27 Anion Gap 5 BUN 14 Creatinine 0.58 L Estim Creat Clear Calc 70 Estimated GFR > 60 Glucose 105 Calcium 8.6 Magnesium 2.1 Total Bilirubin 0.2 AST 39 H ALT 29 Alkaline Phosphatase 218 H Total Protein 7.4 Albumin 3.0 L
[2025-04-09 15:00] VITALS: BP 143/89; PULSE 114; RESP 18; TEMP 36.7; O2SAT 99
[2025-04-09] MEDS: HYDROcodone/acetaminophen (*CRX) 5-325 MG TABLET 1 TAB PO (17:07)
[2025-04-09 21:40] VITALS: BP 148/79; PULSE 111; RESP 16; TEMP 37.3; O2SAT 99
[2025-04-09] MEDS: MIRTAZAPINE 7.5 MG TABLET PO (21:48)
[2025-04-09] MEDS: ENOXAPARIN 80 MG/0.8 ML SYRINGE SUB-Q (21:48)
[2025-04-10] VITALS (9 sets, daily range): BP systolic 123–155; BP diastolic 74–91; PULSE 100–117; RESP 16–22; TEMP 36.7–39.3; O2SAT 97–100
[2025-04-10 05:25] LABS: Basophils Percent Auto 0.3 % (0.2-1.2); Eosinophils Percent Auto 0.2 % (0-4.4); Hematocrit 25.7 % (37.0-47.0); Hemoglobin 7.7 g/dL (12.0-15.0); Immature Granulocyte Absolute 0.03 K/mm3 (0.00-0.031); Immature Granulocyte Percent A 0.5 % (0-0.5); Lymphocytes Absolute Auto 1.41 K/mm3 (0.9-3.2); Lymphocytes Percent Auto 24.1 % (18.3-44.2); Mean Corpuscular Hemoglobin 26.2 pg (26-34); Mean Corpuscular Volume 87.4 fl (80-100); Mean Platelet Volume 9.8 fl (7.4-10.4); Monocytes Absolute Auto 0.4 K/mm3 (0.1-0.6); Monocytes Percent Auto 7.2 % (2.6-8.5); Neutrophils Percent Auto 67.7 % (45.5-73.1); Platelet Count Result 317 k/mm3 (150-375); Red Blood Count 2.94 M/mm3 (4.2-5.4); Red Cell Distribution Width 17.7 % (11.5-14.5); White Blood Count 5.9 K/mm3 (4.5-10.0)
[2025-04-10 05:41] LABS: Alanine Aminotransferase 41 U/L (6-35); Albumin Level 3.2 g/dL (3.5-5.1); Alkaline Phosphatase 241 U/L (38-126); Anion Gap 7 mmol/L (4-12); Aspartate Amino Transferase 63 U/L (14-36); Bilirubin,Total 0.2 mg/dL (0.2-1.3); Blood Urea Nitrogen 15 mg/dL (7-17); Calcium 8.6 mg/dL (8.4-10.2); Carbon Dioxide 26 mmol/L (22-30); Chloride 103 mmol/L (98-107); Estimated CRCL calculation 57 ml/min; Estimated Glomerular Filt Rate > 60; Glucose 116 mg/dL (65-110); Potassium 3.7 mmol/L (3.4-5.0); Sodium 136 mmol/L (137-145); Total Protein 7.7 g/dL (6.3-8.2)
[2025-04-10] MEDS: SERTRALINE HCL 25 MG TABLET PO (09:08)
--- NOTE | 2025-04-10 09:20 | PC.NURSE ---
Addendum entered by Luz Encarnacion RN 04/10/25 09:32: Called physician Chayito. She came right away and assessed patient. Original Note: RN did complete assessment. It was very irregular. RN briefed physician and they came to do an assessment. Patient will not eat, respond, or take medications.
[2025-04-10 09:38] LABS: Glucose Point of Care 110 mg/dl (65-105)
--- NOTE | 2025-04-10 09:44 | P.PNIM_ITS ---
Progress Note: A&P Assessment and Plan (1) Acute respiratory failure: Code(s): J96.00 - Acute respiratory failure, unspecified whether with hypoxia or hypercapnia Status: Acute Assessment and Plan: * Acute Respiratory failure secondary to altered mental status and inability to protect airway * Patient was intubated and extubated on 03/30 * Currently on room air * Avoid sedatives * Incentive spirometry patient can do it * Bronchodilators (2) Sepsis: Code(s): A41.9 - Sepsis, unspecified organism Status: Acute Assessment and Plan: * Sepsis secondary to bowel perforation, peritonitis, UTI * Blood and urine cultures have been ordered no growth. * Zosyn completed treatment. * Sepsis resolved. (3) Altered mental status: Code(s): R41.82 - Altered mental status, unspecified Status: Acute Assessment and Plan: * Patient presented with altered mental status. Patient also has history of seizure disorder and may have had seizure and be postictal. Other possibilities are sepsis as she had a perforated bowel and UTI Overnight rapid response could be secondary to deterioration of mental status from Dilaudid. * MRI brain done on 03/27 did not showed any acute CVA and showed 1. Normal aging brain with minimal periventricular calcific white matter T2 hyperintensity consistent with chronic small vessel ischemic disease. No acute intracranial process * EEG as below * Recent TSH was normal, repeat today slightly low at 0.356. * Normal ammonia * Sedation held and now patient is following commands and moving all 4 extremities * Neurology following. * Avoid sedatives and monitor. * 04/10/25 Called by nurse that patient not following commands and may have a left facial droop. Patient not answering but would moan and talk to God asking him to help her. Patient in neck brace leaning left. * CT head IMPRESSION: 1. No acute intracranial process. 2. Age-related changes including mild to moderate diffuse volume loss and mild scattered white matter attenuation consistent with chronic small vessel ischemic disease. 3. Chronic left frontal craniotomy. * CT chest/abd/pelvis: IMPRESSION: 1. Change of recent partial colectomy with left lower quadrant colostomy. No abscess or bowel obstruction. 2. Mild cardiomegaly. No acute cardiopulmonary disease. 3. Nonobstructing nephrolithiasis. * Patient with decreased oral intake. NS@100 ml/hr. * UA: 1+ protein, 1+ ketones, 2+ blood, + nitrate, 2+ leukocytes, RBC 6-10, WBC 11-20, 2+ bacteria, present yeast. * Urine culture pending. * Ceftriaxone 2 gram IVPB daily. * Blood cultures obtained. * Lactic acid 0.9. * Vitamin B12 826. (4) C2 cervical fracture: Code(s): S12.100A - Unspecified displaced fracture of second cervical vertebra, initial encounter for closed fracture Status: Inactive Assessment and Plan: Patient had a C2 fracture from fall few weeks ago. Patient was evaluated by Neurosurgery. MRI C-spine done on this hospitalization showed following She currently in a soft C-collar. Impression: Fractured the base of the odontoid process possibly extending from the C2 vertebral body detailed above, most compatible with acute fracture. There is minimal marrow edema and suggestion of possible early cortication along the fracture margins. Alignment appears unchanged as compared to prior CT scans. Anterior fusion of C5 and C6. Moderate to advanced degenerative spondylosis otherwise, as detailed above, with multilevel neural foraminal narrowing. Continue C-collar at all times (5) Dysphagia: Qualifiers: Dysphagia type: oropharyngeal phase Qualified Code(s): R13.12 - Dysphagia, oropharyngeal phase Code(s): R13.10 - Dysphagia, unspecified Status: Acute Assessment and Plan: Patient failed her swallow study prior to surgery. Speech Therapy following. Started on oral diet and tolerating follow calorie count (6) UTI (urinary tract infection): Code(s): N39.0 - Urinary tract infection, site not specified Status: Resolved Assessment and Plan: * UA: 1+ protein, 1+ ketones, 2+ blood, + nitrate, 2+ leukocytes, RBC 6-10, WBC 11-20, 2+ bacteria, present yeast. * Urine culture pending. * Ceftriaxone 2 gram IVPB daily. * NS @ 100 ml/hr. (7) Seizure disorder: Code(s): G40.909 - Epilepsy, unspecified, not intractable, without status epilepticus Status: Acute Assessment and Plan: History of seizure disorder. Continue Keppra. Currently sedated with Versed 03/28 EEG. IMPRESSION This is an abnormal EEG due to following 1. Nearly continuous focal slow wave activity intermixed with sharp wave transients were seen over left frontal area. This may relate to having previous surgery in this area. Focal slowing is suggestive of underlying structural lesion. Sharp transients are considered nonspecific focal interictal abnormality. Clinical and radiographic correlation are recommended. 2. Mild his background slowing suggestive of generalized encephalopathy (8) Perforation bowel: Code(s): K63.1 - Perforation of intestine (nontraumatic) Status: Acute Assessment and Plan: 03/28 Status post 1. Exploratory laparotomy 2. Sigmoid colon resection with end descending colostomy 3. Ileal resection with [id number]-[id number] ileal anastomosis Management per General surgery. Surgery okayed to restart lovenox. Antibiotics as above completed course (9) Anemia: Code(s): D64.9 - Anemia, unspecified Status: Acute Assessment and Plan: 03/30 Hemoglobin 6.2 this morning likely secondary to surgery and hemodilution. No objective evidence of bleeding at this time. Stool is brown Transfuse 1 unit PRBC and repeat hemoglobin. Coags if you Continue DVT prophylaxis Lovenox at this time. Continue PPI Hemoglobin stable at this time monitor. Despite being on DVT prophylaxis now has DVT likely PICC line associated. / H&H 7.8/26.7. / H&H 7.7/25.7. (10) Superficial vein thrombosis: Code(s): I82.890 - Acute embolism and thrombosis of other specified veins Status: Acute Assessment and Plan: Venous Doppler shows thrombus in the left cephalic and basilic veins and left upper extremity. Continue DVT prophylaxis with Lovenox. Despite being on DVT prophylaxis now has DVT likely PICC line associated. switched to therapeutic Lovenox. (11) DVT (deep venous thrombosis): Code(s): I82.409 - Acute embolism and thrombosis of unspecified deep veins of unspecified lower extremity Status: Acute Assessment and Plan: Venous Doppler shows thrombus in the left cephalic and basilic veins and left upper extremity. Continue DVT prophylaxis with Lovenox. Despite being on DVT prophylaxis now has DVT likely PICC line associated. switched to therapeutic Lovenox. (12) Depression: Code(s): F32.A - Depression, unspecified Status: Acute Assessment and Plan: ongoing. lacks motivation Added zoloft added mirtazapine small dose avoid megace due to dvt (13) GI bleed: Code(s): K92.2 - Gastrointestinal hemorrhage, unspecified Status: Acute Assessment and Plan: Brown stool in colostomy today. General surgery and GI following. H&H however remains stable. Plan patient with c/o abdominal pain had CT scan of the abdomen and pelvic which showed sigmoid diverticulosis with 6.0 x 5.4 x 3.2 cm gas and feculent material containing cavity consistent with a contained bowel perforation which communicates to the sigmoid colon through a 1.8 x 1.3 cm defect in the wall of the colon. patient was seen by surgery service and was taken to the OR on 03/29 and had surgical repair had resection of her intestine and colostomy was placed and the surgery was uneventful, however later in the evening RR was called as patient was unresponsive and was intubated to protect patient airway. on 03/30 patient was extubated and ostomy is functioning now, patient fed via NG tube remain stable off vent in the ICU patient was transferred out of ICU to IMU on 03/31. Patient was seen by speech therapist and swallowing evaluation recommending patient can start puree diet will also continue tube feeding at half the rate to provide sufficient nutrition, however on 04/02 patient pulled out NG tube and refused to put NG tube back, ENT consulted for concern for tonsillar abscess. Disposition plan to go to [facility] bed. Continue PT OT to see DVT prophylaxis - SCD, Lovenox Stress ulcer prophylaxis - PPI Nutrition -tube feeds Code Status - Full Code Subjective Date/time seen: 04/10/25 09:44 Interval history: Called by nurse that patient not following commands and may have a left facial droop. Patient not answering but would moan and talk to God asking him to help her. Patient in neck brace leaning left. Review of Systems Review of Systems: All systems reviewed & are unremarkable except as noted in HPI and below Exam Const: General: comfortable and no acute distress Eyes: Pupils: Equal, round and reactive pupils present Resp: Effort & Inspection: normal respiratory effort Auscultation: clear to auscultation bilaterally Cardio: Rate: tachycardic Other: HR 112 GI: GI Palp: Yes Soft to palpation Auscultation: normal bowel sounds Neuro: Other: Patient not answering questions but would moan and talk to God asking him to help her. Extrem: General: no pedal edema Objective Data Vital Signs Vital Signs: Vital Signs - 24 hr 04/09/25 15:00 04/09/25 20:00 04/09/25 21:40 Temperature 98.0 F 99.2 F Pulse Rate 114 H 111 H Respiratory Rate 18 16 Blood Pressure 143/89 H 148/79 H Pulse Oximetry 99 99 Oxygen Delivery Room Air 04/10/25 05:42 04/10/25 08:53 04/10/25 08:54 Temperature 99 F Pulse Rate 110 H 117 H Respiratory Rate 16 18 Blood Pressure 146/74 H 137/91 H Pulse Oximetry 97 100 Oxygen Delivery Room Air Intake/Output Intake/Output: Intake & Output 04/07/25 04/08/25 04/09/25 04/10/25 23:59 23:59 23:59 23:59 Intake Total 840 580 350 0 Output Total 900 1135 950 350 Balance -60 -555 -600 -350 Meds/Results Medications: Active Medications Generic Name Dose Route Start Last Admin Trade Name Freq PRN Reason Stop Dose Admin Acetaminophen 1,000 mg 04/04/25 14:11 04/07/25 17:28 Acetaminophen 500 Mg Tablet PO 1,000 mg Q6H PRN Administration fever or pain 1-3 Albuterol/Ipratropium 3 ml 03/30/25 04:29 03/30/25 05:49 Ipratropium 0.5 Mg/Albuterol Sulfate 2.5 Mg Ampul.Neb 3 Ml INHALATION 3 ml Q6HRT PRN Administration Wheezing Amlodipine Besylate 5 mg 04/10/25 09:00 04/10/25 09:08 Amlodipine Besylate 5 Mg Tablet PO 5 mg DAILY JAYDEN Administration Enoxaparin Sodium 80 mg 04/05/25 22:00 04/09/25 21:48 Enoxaparin 80 Mg/0.8 Ml Syringe SUB-Q 80 mg Q12HR JAYDEN Administration Hydromorphone HCl 0.5 mg 04/08/25 13:06 04/09/25 08:04 Hydromorphone Hcl Inj (*Crx) 2 Mg/Ml Vial IV PUSH 0.5 mg Q4H PRN Administration Pain Rated 5-10 if npo Fluids 500 bag/ Sodium 500 mls @ 100 mls/hr 04/10/25 09:45 Chloride IV 05/10/25 09:44 PRN JAYDEN Levetiracetam 1,500 mg 04/07/25 21:00 04/10/25 09:08 Levetiracetam 500 Mg Tablet PO 1,500 mg Q12HR JAYDEN Administration Mirtazapine 7.5 mg 04/06/25 21:00 04/09/25 21:48 Mirtazapine 7.5 Mg Tablet PO 7.5 mg HS JAYDEN Administration Naloxone HCl 0.1 mg 03/29/25 00:02 Naloxone Hcl 0.4 Mg/Ml Vial IV PUSH Q2M PRN Opiate Reversal Ondansetron HCl 4 mg 03/26/25 14:08 Ondansetron Inj 4 Mg/2 Ml Vial IV PUSH Q6H PRN Nausea And Vomiting Pantoprazole Sodium 40 mg 04/08/25 21:00 04/09/25 21:48 Pantoprazole Sodium Iv 40 Mg Vial IV PUSH 40 mg Q12HR JAYDEN Administration Sertraline HCl 25 mg 04/06/25 18:00 04/10/25 09:08 Sertraline Hcl 25 Mg Tablet PO 25 mg QAM JAYDEN Administration Simethicone 80 mg 04/05/25 17:41 04/10/25 09:08 Simethicone 80 Mg Tab.Chew PO 80 mg QID PRN Administration Gas Discomfort Sodium Chloride 10 ml 03/29/25 14:00 04/10/25 05:29 Central Line Flush IV PUSH Not Given Q8HR JAYDEN Sodium Chloride 10 ml 03/29/25 09:36 Central Line Flush IV PUSH PRN PRN with TPN bag changes Sodium Chloride 20 ml 03/29/25 09:36 Central Line Flush IV PUSH PRN PRN after blood draws Radiology Results: ITS Impressions Modified Barium Swallow 03/27/25 15:26 IMPRESSION: Oropharyngeal dysphagia with intermittent laryngeal penetration with indeterminate/possible minimal aspiration. Please correlate with speech pathologist findings and specific feeding recommendations. Brain MRI 03/27/25 15:28 IMPRESSION: 1. Normal aging brain with minimal periventricular calcific white matter T2 hyperintensity consistent with chronic small vessel ischemic disease. No acute intracranial process. Cervical Spine MRI 03/28/25 08:39 Impression: Fractured the base of the odontoid process possibly extending from the C2 vertebral body detailed above, most compatible with acute fracture. There is minimal marrow edema and suggestion of possible early cortication along the fracture margins. Alignment appears unchanged as compared to prior CT scans. Anterior fusion of C5 and C6. Moderate to advanced degenerative spondylosis otherwise, as detailed above, with multilevel neural foraminal narrowing. Chest/Abdomen/Pelvis CT 03/28/25 11:45 IMPRESSION: 1. Sigmoid diverticulosis with 6.0 x 5.4 x 3.2 cm gas and feculent material containing cavity consistent with a contained bowel perforation which communicates to the sigmoid colon through a 1.8 x 1.3 cm defect in the wall of the colon. 2. Nonobstructing left nephrolithiasis. 3. Mild cardiomegaly. No acute cardiopulmonary disease. Head CT 03/29/25 09:51 IMPRESSION: 1. No acute intracranial process. 2. Age-related changes including mild to moderate diffuse volume loss and mild scattered white matter attenuation consistent with chronic small vessel ischemic disease. 3. Chronic left frontal craniotomy. Abdomen X-Ray 04/01/25 10:44 IMPRESSION: 1. Nasogastric tube in the stomach. Chest X-Ray 04/04/25 14:06 IMPRESSION: Inadvertent withdrawal of the previously identified PICC line, which now projects over the right subclavian vein, as detailed above. Venous Doppler Study 04/05/25 11:34 IMPRESSION: 1. Bilateral upper extremity venous thrombosis with deep venous thrombosis of the right subclavian and axillary veins. Labs Labs: Laboratory Results - last 24 hr 04/10/25 04/10/25 04:40 09:30 WBC 5.9 RBC 2.94 L Hgb 7.7 L Hct 25.7 L MCV 87.4 MCH 26.2 MCHC 30.0 L RDW 17.7 H Plt Count 317 MPV 9.8 Immature Gran % (Auto) 0.5 Neut % (Auto) 67.7 Lymph % (Auto) 24.1 [place] % (Auto) 7.2 Eos % (Auto) 0.2 Baso % (Auto) 0.3 Lymph # (Auto) 1.41 [place] # (Auto) 0.4 Eos # (Auto) 0.0 Baso # (Auto) 0.0 Abs Immat Gran (auto) 0.03 Absolute Neuts (auto) 4.0 Absolute Nucleated RBC 0.000 Nucleated RBC % 0.0 Sodium 136 L Potassium 3.7 Chloride 103 Carbon Dioxide 26 Anion Gap 7 BUN 15 Creatinine 0.73 Estim Creat Clear Calc 57 Estimated GFR > 60 Glucose 116 H POC Capillary Glucose 110 H Calcium 8.6 Total Bilirubin 0.2 AST 63 H ALT 41 H Alkaline Phosphatase 241 H Total Protein 7.7 Albumin 3.2 L Quality VTE Prophylaxis VTE prophylaxis: mechanical ordered and pharmacologic ordered
[2025-04-10] MEDS: SODIUM CHLORIDE 0.9% IV 500 ML 100 ML IV CONT ×2 (10:14→16:15)
[2025-04-10 10:15] LABS: Add Urine Microscopic? YES; Appearance Urine Clear (Clear); Bacteria Urine 2+ /hpf; Bilirubin Urine Negative (Negative); Blood Urine 2+ (Negative); Budding Yeast Urine Present /hpf; Color Urine Yellow (Yellow); Glucose Urine UA Negative (Negative); Ketones Urine 1+ mg/dL (Negative); Leukocyte Esterase Ur 2+ LEU/UL (Negative); Need Manual Microscopic Reviewed; Nitrate Urine Positive (Negative); Protein Urine 1+ mg/dL (Negative); Specific Grav Ur 1.022 (1.001-1.035); Squamous Epithelial Cell Urine None Seen /hpf (Few); Urobilinogen Urine 0.2 mg/dL (<2.0); pH Urine 5.5 (5.0-9.0)
[2025-04-10 10:33] LABS: Ammonia < 9 umol/L (9-30)
[2025-04-10 10:37] LABS: Lactic Acid Reflex 0.9 mmol/L (0.7-2.0)
--- NOTE | 2025-04-10 10:54 | P.PNGS_ITS ---
Progress Note: A&P Assessment and Plan (1) Perforation bowel: Code(s): K63.1 - Perforation of intestine (nontraumatic) Status: Acute Assessment and Plan: * No signs of blood in stool today. Ostomy functioning well. The stoma appears healthy with no areas of bleeding. Hgb low, but stable since admission. Lovenox resumed yesterday, but has not yet been given today d/t concern for stroke. Continue PPI. GI consulted and recommends continuous monitoring of H&H and transfusion as needed to keep HGB >7. General surgery will continue to monitor for signs of active bleeding. Plan Subjective Subjective Date/Time Seen: 04/10/25 10:54 Interval history: No acute events overnight, aside from slight tachycardia and very mild low grade fever this morning. Normal WBC. Lovenox resumed yesterday, but today's dose not yet administered. Loose brown stool in ostomy bag with no concern for hematochezia. Nurse concerned for stroke symptoms including left sided facial droop and inability to follow commands. However, it is difficult to assess d/t patient's baseline altered mental status. Hospitalist notified and evaluating. Exam GI: Inspection: non-distended, incision (healing well with noah intact, no erythema or drainage), scar (Lower midline) and other (ostomy pink and functioning) Auscultation: normal bowel sounds and Hypoactive bowel sounds present Other: Colostomy bag with liquid brown stool. Stoma is pink and viable with no areas of bleeding. No tenderness to palpation. Neuro: General: patient obtunded and Unable to assess gait Gait exam (Ne uro): Unable to assess gait Objective Data Vital Signs Vital Signs: Vital Signs - 24 hr 04/09/25 15:00 04/09/25 20:00 04/09/25 21:40 Temperature 98.0 F 99.2 F Pulse Rate 114 H 111 H Respiratory Rate 18 16 Blood Pressure 143/89 H 148/79 H Pulse Oximetry 99 99 Oxygen Delivery Room Air 04/10/25 05:42 04/10/25 08:53 04/10/25 08:54 Temperature 99 F Pulse Rate 110 H 117 H Respiratory Rate 16 18 Blood Pressure 146/74 H 137/91 H Pulse Oximetry 97 100 Oxygen Delivery Room Air Intake/Output Intake/Output: Intake & Output 04/07/25 04/08/25 04/09/25 06/05/25 23:59 23:59 23:59 23:59 Intake Total 840 580 350 0 Output Total 900 1135 950 350 Balance -60 -555 -600 -350 Meds/Results Medications: Active Medications Generic Name Dose Route Start Last Admin Trade Name Freq PRN Reason Stop Dose Admin Acetaminophen 1,000 mg 04/04/25 14:11 04/07/25 17:28 Acetaminophen 500 Mg Tablet PO 1,000 mg Q6H PRN Administration fever or pain 1-3 Albuterol/Ipratropium 3 ml 03/30/25 04:29 03/30/25 05:49 Ipratropium 0.5 Mg/Albuterol Sulfate 2.5 Mg Ampul.Neb 3 Ml INHALATION 3 ml Q6HRT PRN Administration Wheezing Amlodipine Besylate 5 mg 04/10/25 09:00 Amlodipine Besylate 5 Mg Tablet PO DAILY JAYDEN Enoxaparin Sodium 80 mg 04/05/25 22:00 04/09/25 21:48 Enoxaparin 80 Mg/0.8 Ml Syringe SUB-Q 80 mg Q12HR JAYDEN Administration Hydromorphone HCl 0.5 mg 04/08/25 13:06 04/09/25 08:04 Hydromorphone Hcl Inj (*Crx) 2 Mg/Ml Vial IV PUSH 0.5 mg Q4H PRN Administration Pain Rated 5-10 if npo Sodium Chloride 500 mls @ 100 mls/hr 04/10/25 09:56 04/10/25 10:14 Normal Saline Iv IV CONT 04/10/25 14:55 100 mls/hr .Q5H ONE Administration Ceftriaxone Sodium 2 gm in 100 mls @ 200 mls/hr 04/10/25 11:00 Rocephin 2 Gm/Ns 100 Ml IVPB Q24H JAYDEN Levetiracetam 1,500 mg 04/07/25 21:00 04/09/25 21:48 Levetiracetam 500 Mg Tablet PO 1,500 mg Q12HR JAYDEN Administration Mirtazapine 7.5 mg 04/06/25 21:00 04/09/25 21:48 Mirtazapine 7.5 Mg Tablet PO 7.5 mg HS JAYDEN Administration Naloxone HCl 0.1 mg 03/29/25 00:02 Naloxone Hcl 0.4 Mg/Ml Vial IV PUSH Q2M PRN Opiate Reversal Ondansetron HCl 4 mg 03/26/25 14:08 Ondansetron Inj 4 Mg/2 Ml Vial IV PUSH Q6H PRN Nausea And Vomiting Pantoprazole Sodium 40 mg 04/08/25 21:00 04/09/25 21:48 Pantoprazole Sodium Iv 40 Mg Vial IV PUSH 40 mg Q12HR JAYDEN Administration Sertraline HCl 25 mg 04/06/25 18:00 04/10/25 09:08 Sertraline Hcl 25 Mg Tablet PO 25 mg QAM JAYDEN Administration Simethicone 80 mg 04/05/25 17:41 04/09/25 08:07 Simethicone 80 Mg Tab.Chew PO 80 mg QID PRN Administration Gas Discomfort Sodium Chloride 10 ml 03/29/25 14:00 04/10/25 05:29 Central Line Flush IV PUSH Not Given Q8HR JAYDEN Sodium Chloride 10 ml 03/29/25 09:36 Central Line Flush IV PUSH PRN PRN with TPN bag changes Sodium Chloride 20 ml 03/29/25 09:36 Central Line Flush IV PUSH PRN PRN after blood draws Radiology Results: ITS Impressions Modified Barium Swallow 03/27/25 15:26 IMPRESSION: Oropharyngeal dysphagia with intermittent laryngeal penetration with indeterminate/possible minimal aspiration. Please correlate with speech pathologist findings and specific feeding recommendations. Brain MRI 03/27/25 15:28 IMPRESSION: 1. Normal aging brain with minimal periventricular calcific white matter T2 hyperintensity consistent with chronic small vessel ischemic disease. No acute intracranial process. Cervical Spine MRI 03/28/25 08:39 Impression: Fractured the base of the odontoid process possibly extending from the C2 vertebral body detailed above, most compatible with acute fracture. There is minimal marrow edema and suggestion of possible early cortication along the fracture margins. Alignment appears unchanged as compared to prior CT scans. Anterior fusion of C5 and C6. Moderate to advanced degenerative spondylosis otherwise, as detailed above, with multilevel neural foraminal narrowing. Abdomen X-Ray 04/01/25 10:44 IMPRESSION: 1. Nasogastric tube in the stomach. Chest X-Ray 04/04/25 14:06 IMPRESSION: Inadvertent withdrawal of the previously identified PICC line, which now projects over the right subclavian vein, as detailed above. Venous Doppler Study 04/05/25 11:34 IMPRESSION: 1. Bilateral upper extremity venous thrombosis with deep venous thrombosis of the right subclavian and axillary veins. Head CT 04/10/25 10:35 IMPRESSION: 1. No acute intracranial process. 2. Age-related changes including mild to moderate diffuse volume loss and mild scattered white matter attenuation consistent with chronic small vessel ischemic disease. 3. Chronic left frontal craniotomy. Labs Labs: Laboratory Results - last 24 hr 04/10/25 04/10/25 04/10/25 04:40 09:30 09:59 WBC 5.9 RBC 2.94 L Hgb 7.7 L Hct 25.7 L MCV 87.4 MCH 26.2 MCHC 30.0 L RDW 17.7 H Plt Count 317 MPV 9.8 Immature Gran % (Auto) 0.5 Neut % (Auto) 67.7 Lymph % (Auto) 24.1 [place] % (Auto) 7.2 Eos % (Auto) 0.2 Baso % (Auto) 0.3 Lymph # (Auto) 1.41 [place] # (Auto) 0.4 Eos # (Auto) 0.0 Baso # (Auto) 0.0 Abs Immat Gran (auto) 0.03 Absolute Neuts (auto) 4.0 Absolute Nucleated RBC 0.000 Nucleated RBC % 0.0 Sodium 136 L Potassium 3.7 Chloride 103 Carbon Dioxide 26 Anion Gap 7 BUN 15 Creatinine 0.73 Estim Creat Clear Calc 57 Estimated GFR > 60 Glucose 116 H POC Capillary Glucose 110 H Lactic Acid Calcium 8.6 Total Bilirubin 0.2 AST 63 H ALT 41 H Alkaline Phosphatase 241 H Ammonia Total Protein 7.7 Albumin 3.2 L Urine Color Yellow Urine Appearance Clear Urine pH 5.5 Ur Specific [place] 1.022 Urine Protein 1+ H Urine Glucose (UA) Negative Urine Ketones 1+ H Ur Blood (Man) 2+ H Urine Nitrate Positive H Urine Bilirubin Negative Urine Urobilinogen 0.2 Add Ur Microanalysis Reviewed Leukocyte Esterase Rfl 2+ H Urine RBC 6-10 H Urine WBC 11-20 H Ur Squamous Epith Cells None seen Urine Bacteria 2+ H Urine Casts 3-5 Urine Yeast (Budding) Present H 04/10/25 10:08 WBC RBC Hgb Hct MCV MCH MCHC RDW Plt Count MPV Immature Gran % (Auto) Neut % (Auto) Lymph % (Auto) [place] % (Auto) Eos % (Auto) Baso % (Auto) Lymph # (Auto) [place] # (Auto) Eos # (Auto) Baso # (Auto) Abs Immat Gran (auto) Absolute Neuts (auto) Absolute Nucleated RBC Nucleated RBC % Sodium Potassium Chloride Carbon Dioxide Anion Gap BUN Creatinine Estim Creat Clear Calc Estimated GFR Glucose POC Capillary Glucose Lactic Acid 0.9 Calcium Total Bilirubin AST ALT Alkaline Phosphatase Ammonia < 9 L Total Protein Albumin Urine Color Urine Appearance Urine pH Ur Specific [place] Urine Protein Urine Glucose (UA) Urine Ketones Ur Blood (Man) Urine Nitrate Urine Bilirubin Urine Urobilinogen Add Ur Microanalysis Leukocyte Esterase Rfl Urine RBC Urine WBC Ur Squamous Epith Cells Urine Bacteria Urine Casts Urine Yeast (Budding)
[2025-04-10 11:11] LABS: Thyroid Stimulating Hormone Reflex 0.356 uIU/mL (0.465-4.68)
[2025-04-10] MEDS: cefTRIAXone 2 GM/NS 100 ML 2 GM/100 ML BAG IVPB (11:37)
--- NOTE | 2025-04-10 12:05 | PC.NURSE ---
RN spoke to LEXY Stratton regarding patient's morning medications. Patient will not be getting medications unless awake more. 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
--- NOTE | 2025-04-10 12:16 | PCNFU ---
Nutrition Follow-Up Complete: Inadequate energy intake related to altered GI function, mechanical ventilation as evidenced by NPO Goal: Meet estimated nutrition needs when medically able Patient is not meeting goal. We will continue current goal. Pt current nutrition is Minced and Moist, Level 5 with Ensure Enlive TID. Last recorded weight is 74.8 kg, up from 72.5 kg on admit. Bowel Motility: Ostomy Labs Reviewed: Glu 116, Alb 3.2, Na 136 Meds Noted: Protonix, NS, Remeron, Rocephin, Lovenox. Skin:n WNL Additional Notes:This morning, patient sent for CT, found to have UTI. Antibiotics started. Discussed nutrition with Hospitalist and nursing today. Unable to use PICC line. Patient had 50% of tray 6/3 breakfast and 5% reported at dinner 6/4. No PO meds given at this time today. Discussions starting NGT feedings tomorrow if patient is unable to consume meals today. Ensure Enlive providing an additional 350 kcal and 20 gm protein. PO intake encouraged. Monitoring orders, plan of care, weights, labs, output Daily in rounds. Follow up in 3 days
[2025-04-10 14:26] LABS: Free T4 Free Thyroxine Reflex 1.13 ng/dL (0.78-2.19)
[2025-04-10 15:18] LABS: Total Triiodothyronine (T3) 1.01 NG/ML (0.82-1.58)
[2025-04-10] MEDS: ACETAMINOPHEN 650 MG SUPPOSITORY RECTAL (21:08)
[2025-04-10] MEDS: ENOXAPARIN 80 MG/0.8 ML SYRINGE SUB-Q (22:12)
[2025-04-10] MEDS: PANTOPRAZOLE SODIUM IV 40 MG VIAL IV PUSH (22:13)
[2025-04-10] MEDS: SODIUM CHLORIDE 0.9% IV 1,000 ML 100 ML IV CONT (22:13)
[2025-04-11] VITALS (10 sets, daily range): BP systolic 119–150; BP diastolic 61–75; PULSE 81–102; RESP 16–20; TEMP 36.6–37.6; O2SAT 98–100
[2025-04-11] MEDS: ACETAMINOPHEN 500 MG TABLET 1000 MG PO ×2 (03:12→09:29)
[2025-04-11 06:19] LABS: Basophils Percent Auto 0.3 % (0.2-1.2); Eosinophils Absolute Auto 0.1 K/mm3 (0-0.3); Eosinophils Percent Auto 2.6 % (0-4.4); Hematocrit 24.1 % (37.0-47.0); Hemoglobin 7.1 g/dL (12.0-15.0); Immature Granulocyte Absolute 0.02 K/mm3 (0.00-0.031); Immature Granulocyte Percent A 0.5 % (0-0.5); Lymphocytes Absolute Auto 1.04 K/mm3 (0.9-3.2); Lymphocytes Percent Auto 27.4 % (18.3-44.2); Mean Corpuscular HGB Conc 29.5 g/dl (32-36); Mean Corpuscular Hemoglobin 25.8 pg (26-34); Mean Corpuscular Volume 87.6 fl (80-100); Monocytes Absolute Auto 0.2 K/mm3 (0.1-0.6); Monocytes Percent Auto 6.3 % (2.6-8.5); Neutrophils Absolute Auto 2.4 K/mm3 (1.3-6.7); Neutrophils Percent Auto 62.9 % (45.5-73.1); Platelet Count Result 270 k/mm3 (150-375); Red Blood Count 2.75 M/mm3 (4.2-5.4); Red Cell Distribution Width 17.8 % (11.5-14.5); White Blood Count 3.8 K/mm3 (4.5-10.0)
[2025-04-11 06:31] LABS: Alanine Aminotransferase 84 U/L (6-35); Albumin Level 2.8 g/dL (3.5-5.1); Alkaline Phosphatase 203 U/L (38-126); Anion Gap 8 mmol/L (4-12); Aspartate Amino Transferase 140 U/L (14-36); Bilirubin,Total 0.2 mg/dL (0.2-1.3); Blood Urea Nitrogen 16 mg/dL (7-17); Calcium 8.2 mg/dL (8.4-10.2); Carbon Dioxide 22 mmol/L (22-30); Chloride 108 mmol/L (98-107); Estimated CRCL calculation 58 ml/min; Estimated Glomerular Filt Rate > 60; Glucose 96 mg/dL (65-110); Potassium 3.3 mmol/L (3.4-5.0); Sodium 138 mmol/L (137-145)
[2025-04-11 07:04] LABS: Hypochromasia 2+; Platelet Estimate Adequate (Adequate)
[2025-04-11 07:05] LABS: Acanthocytes 1+; Anisocytosis 1+; Schistocytes None Seen
[2025-04-11 08:55] LABS: Magnesium 2.2 mg/dL (1.6-2.3)
--- NOTE | 2025-04-11 09:16 | P.PNGS_ITS ---
Progress Note: A&P Assessment and Plan (1) Perforation bowel: Code(s): K63.1 - Perforation of intestine (nontraumatic) Status: Acute Assessment and Plan: * No signs of blood in stool today. Ostomy functioning well. The stoma appears healthy with no areas of bleeding. Hgb low, but stable since admission. Continue PPI. GI consulted and recommends continuous monitoring of H&H and transfusion as needed to keep HGB >7. General surgery will continue to monitor for signs of active bleeding. * Incision site is clean and dry with no signs of dehiscence, purulent drainage, surrounding erythema, necrosis, or other signs of infection. Continue to monitor. Plan Subjective Subjective Date/Time Seen: 04/11/25 09:16 Interval history: CT head and CT chest/abd/pelvis unremarkable. Unknown etiology of altered mental status from baseline. Tmax of 102.7 overnight, but stabilized back to 98.3 this morning. WBC 3.8 this morning. No signs of blood in stool today. Ostomy functioning well. The stoma appears healthy with no areas of bleeding. Hgb low, but stable since admission. Exam GI: Inspection: non-distended, incision (healing well with noah intact, no erythema or drainage), scar (Lower midline) and other (ostomy pink and functioning) Auscultation: normal bowel sounds and Hypoactive bowel sounds present Other: Colostomy bag with liquid brown stool. Stoma is pink and viable with no areas of bleeding. No tenderness to palpation. Objective Data Vital Signs Vital Signs: Vital Signs - 24 hr 04/10/25 14:00 04/10/25 19:49 04/10/25 20:00 Temperature 98.1 F 98.1 F Pulse Rate 112 H 100 111 H Respiratory Rate 22 H 20 Blood Pressure 123/78 155/81 H Pulse Oximetry 100 100 Oxygen Delivery 04/10/25 20:45 04/10/25 20:53 04/10/25 20:55 Temperature 102.7 F H Pulse Rate Respiratory Rate Blood Pressure Pulse Oximetry 98 Oxygen Delivery Room Air Room Air 04/10/25 21:08 04/10/25 22:08 04/11/25 00:00 Temperature 102.7 F H 102.1 F H Pulse Rate 101 H Respiratory Rate Blood Pressure Pulse Oximetry Oxygen Delivery 04/11/25 00:06 04/11/25 03:07 04/11/25 04:00 Temperature 99.3 F 98.8 F Pulse Rate 91 89 Respiratory Rate 18 Blood Pressure 134/70 Pulse Oximetry 100 Oxygen Delivery 04/11/25 07:58 Temperature 98.3 F Pulse Rate 81 Respiratory Rate 20 Blood Pressure 119/63 Pulse Oximetry 100 Oxygen Delivery Intake/Output Intake/Output: Intake & Output 04/08/25 04/09/25 04/10/25 04/11/25 23:59 23:59 23:59 23:59 Intake Total 580 350 190 20 Output Total 1135 950 750 300 Balance -555 -600 -560 -280 Meds/Results Medications: Active Medications Generic Name Dose Route Start Last Admin Trade Name Freq PRN Reason Stop Dose Admin Acetaminophen 1,000 mg 04/04/25 14:11 04/11/25 03:12 Acetaminophen 500 Mg Tablet PO 1,000 mg Q6H PRN Administration fever or pain 1-3 Acetaminophen 650 mg 04/10/25 20:57 04/10/25 21:08 Acetaminophen 650 Mg Suppository RECTAL 650 mg Q4H PRN Administration Mild Pain (1-3) or Fever Albuterol/Ipratropium 3 ml 03/30/25 04:29 03/30/25 05:49 Ipratropium 0.5 Mg/Albuterol Sulfate 2.5 Mg Ampul.Neb 3 Ml INHALATION 3 ml Q6HRT PRN Administration Wheezing Amlodipine Besylate 5 mg 04/10/25 09:00 04/10/25 14:59 Amlodipine Besylate 5 Mg Tablet PO Not Given DAILY JAYDEN Enoxaparin Sodium 80 mg 04/05/25 22:00 04/10/25 22:12 Enoxaparin 80 Mg/0.8 Ml Syringe SUB-Q 80 mg Q12HR JAYDEN Administration Hydromorphone HCl 0.5 mg 04/08/25 13:06 04/09/25 08:04 Hydromorphone Hcl Inj (*Crx) 2 Mg/Ml Vial IV PUSH 0.5 mg Q4H PRN Administration Pain Rated 5-10 if npo Ceftriaxone Sodium 2 gm in 100 mls @ 200 mls/hr 04/10/25 11:00 04/10/25 11:37 Rocephin 2 Gm/Ns 100 Ml IVPB 200 mls/hr Q24H JAYDEN Administration Sodium Chloride 1,000 mls @ 100 mls/hr 04/10/25 21:05 04/10/25 22:13 Normal Saline Iv IV CONT 100 mls/hr .Q10H JAYDEN Administration Levetiracetam 1,500 mg in 100 mls @ 400 mls/hr 04/11/25 09:00 Keppra Iv IVPB Q12HR JAYDEN Mirtazapine 7.5 mg 04/06/25 21:00 04/10/25 22:19 Mirtazapine 7.5 Mg Tablet PO Not Given HS JAYDEN Naloxone HCl 0.1 mg 03/29/25 00:02 Naloxone Hcl 0.4 Mg/Ml Vial IV PUSH Q2M PRN Opiate Reversal Ondansetron HCl 4 mg 03/26/25 14:08 Ondansetron Inj 4 Mg/2 Ml Vial IV PUSH Q6H PRN Nausea And Vomiting Pantoprazole Sodium 40 mg 04/08/25 21:00 04/10/25 22:13 Pantoprazole Sodium Iv 40 Mg Vial IV PUSH 40 mg Q12HR JAYDEN Administration Sertraline HCl 25 mg 04/06/25 18:00 04/10/25 09:08 Sertraline Hcl 25 Mg Tablet PO 25 mg QAM JAYDEN Administration Simethicone 80 mg 04/05/25 17:41 04/09/25 08:07 Simethicone 80 Mg Tab.Chew PO 80 mg QID PRN Administration Gas Discomfort Sodium Chloride 10 ml 03/29/25 14:00 04/11/25 06:58 Central Line Flush IV PUSH Not Given Q8HR JAYDEN Sodium Chloride 10 ml 03/29/25 09:36 Central Line Flush IV PUSH PRN PRN with TPN bag changes Sodium Chloride 20 ml 03/29/25 09:36 Central Line Flush IV PUSH PRN PRN after blood draws Radiology Results: ITS Impressions Modified Barium Swallow 03/27/25 15:26 IMPRESSION: Oropharyngeal dysphagia with intermittent laryngeal penetration with indeterminate/possible minimal aspiration. Please correlate with speech pathologist findings and specific feeding recommendations. Brain MRI 03/27/25 15:28 IMPRESSION: 1. Normal aging brain with minimal periventricular calcific white matter T2 hyperintensity consistent with chronic small vessel ischemic disease. No acute intracranial process. Cervical Spine MRI 03/28/25 08:39 Impression: Fractured the base of the odontoid process possibly extending from the C2 vertebral body detailed above, most compatible with acute fracture. There is minimal marrow edema and suggestion of possible early cortication along the fracture margins. Alignment appears unchanged as compared to prior CT scans. Anterior fusion of C5 and C6. Moderate to advanced degenerative spondylosis otherwise, as detailed above, with multilevel neural foraminal narrowing. Abdomen X-Ray 04/01/25 10:44 IMPRESSION: 1. Nasogastric tube in the stomach. Chest X-Ray 04/04/25 14:06 IMPRESSION: Inadvertent withdrawal of the previously identified PICC line, which now projects over the right subclavian vein, as detailed above. Venous Doppler Study 04/05/25 11:34 IMPRESSION: 1. Bilateral upper extremity venous thrombosis with deep venous thrombosis of the right subclavian and axillary veins. Head CT 04/10/25 10:35 IMPRESSION: 1. No acute intracranial process. 2. Age-related changes including mild to moderate diffuse volume loss and mild scattered white matter attenuation consistent with chronic small vessel ischemic disease. 3. Chronic left frontal craniotomy. Chest/Abdomen/Pelvis CT 04/10/25 10:37 IMPRESSION: 1. Change of recent partial colectomy with left lower quadrant colostomy. No ab scess or bowel obstruction. 2. Mild cardiomegaly. No acute cardiopulmonary disease. 3. Nonobstructing nephrolithiasis. Labs Labs: Laboratory Results - last 24 hr 04/10/25 04/10/25 04/10/25 09:30 09:59 10:08 WBC RBC Hgb Hct MCV MCH MCHC RDW Plt Count MPV Immature Gran % (Auto) Neut % (Auto) Lymph % (Auto) [place] % (Auto) Eos % (Auto) Baso % (Auto) Lymph # (Auto) [place] # (Auto) Eos # (Auto) Baso # (Auto) Abs Immat Gran (auto) Absolute Neuts (auto) Absolute Nucleated RBC Band Neutrophils % Nucleated RBC % Platelet Estimate Hypochromasia Anisocytosis Acanthocytes (Spur) Schistocytes Sodium Potassium Chloride Carbon Dioxide Anion Gap BUN Creatinine Estim Creat Clear Calc Estimated GFR Glucose POC Capillary Glucose 110 H Lactic Acid 0.9 Calcium Magnesium Total Bilirubin AST ALT Alkaline Phosphatase Ammonia < 9 L Total Protein Albumin Vitamin B12 826.0 TSH (Reflex) 0.356 L Free T4 1.13 Total T3 1.01 Urine Color Yellow Urine Appearance Clear Urine pH 5.5 Ur Specific [place] 1.022 Urine Protein 1+ H Urine Glucose (UA) Negative Urine Ketones 1+ H Ur Blood (Man) 2+ H Urine Nitrate Positive H Urine Bilirubin Negative Urine Urobilinogen 0.2 Add Ur Microanalysis Reviewed Leukocyte Esterase Rfl 2+ H Urine RBC 6-10 H Urine WBC 11-20 H Ur Squamous Epith Cells None seen Urine Bacteria 2+ H Urine Casts 3-5 Urine Yeast (Budding) Present H 04/11/25 05:21 WBC 3.8 L RBC 2.75 L Hgb 7.1 L Hct 24.1 L MCV 87.6 MCH 25.8 L MCHC 29.5 L RDW 17.8 H Plt Count 270 MPV 10.0 Immature Gran % (Auto) 0.5 Neut % (Auto) 62.9 Lymph % (Auto) 27.4 [place] % (Auto) 6.3 Eos % (Auto) 2.6 Baso % (Auto) 0.3 Lymph # (Auto) 1.04 [place] # (Auto) 0.2 Eos # (Auto) 0.1 Baso # (Auto) 0.0 Abs Immat Gran (auto) 0.02 Absolute Neuts (auto) 2.4 Absolute Nucleated RBC 0.000 Band Neutrophils % Not Reportable Nucleated RBC % 0.0 Platelet Estimate Adequate Hypochromasia 2+ Anisocytosis 1+ Acanthocytes (Spur) 1+ Schistocytes None seen Sodium 138 Potassium 3.3 L Chloride 108 H Carbon Dioxide 22 Anion Gap 8 BUN 16 Creatinine 0.71 Estim Creat Clear Calc 58 Estimated GFR > 60 Glucose 96 POC Capillary Glucose Lactic Acid Calcium 8.2 L Magnesium 2.2 Total Bilirubin 0.2 AST 140 H ALT 84 H Alkaline Phosphatase 203 H Ammonia Total Protein 7.0 Albumin 2.8 L Vitamin B12 TSH (Reflex) Free T4 Total T3 Urine Color Urine Appearance Urine pH Ur Specific [place] Urine Protein Urine Glucose (UA) Urine Ketones Ur Blood (Man) Urine Nitrate Urine Bilirubin Urine Urobilinogen Add Ur Microanalysis Leukocyte Esterase Rfl Urine RBC Urine WBC Ur Squamous Epith Cells Urine Bacteria Urine Casts Urine Yeast (Budding)
[2025-04-11] MEDS: SODIUM CHLORIDE 0.9% IV 1,000 ML 100 ML IV CONT ×2 (09:28→17:54)
[2025-04-11] MEDS: ENOXAPARIN 80 MG/0.8 ML SYRINGE SUB-Q ×2 (09:29→22:54)
[2025-04-11] MEDS: SERTRALINE HCL 25 MG TABLET PO (09:29)
[2025-04-11] MEDS: amLODIPine BESYLATE 5 MG TABLET PO (09:29)
[2025-04-11] MEDS: SIMETHICONE 80 MG TAB.CHEW PO (09:29)
[2025-04-11] MEDS: PANTOPRAZOLE SODIUM IV 40 MG VIAL IV PUSH ×2 (09:30→22:55)
[2025-04-11] MEDS: levETIRAcetam 1500MG/NACL100ML 1,500 MG/100 ML BAG 400 MG IVPB ×2 (09:32→22:55)
[2025-04-11] MEDS: cefTRIAXone 2 GM/NS 100 ML 2 GM/100 ML BAG IVPB (10:41)
--- NOTE | 2025-04-11 11:52 | P.PNIM_ITS ---
Progress Note: A&P Assessment and Plan (1) Acute respiratory failure: Code(s): J96.00 - Acute respiratory failure, unspecified whether with hypoxia or hypercapnia Status: Acute Assessment and Plan: * Acute Respiratory failure secondary to altered mental status and inability to protect airway * Patient was intubated and extubated on 03/30 * Currently on room air * Avoid sedatives * Incentive spirometry patient can do it * Bronchodilators (2) Sepsis: Code(s): A41.9 - Sepsis, unspecified organism Status: Acute Assessment and Plan: * Sepsis secondary to bowel perforation, peritonitis, UTI * Blood and urine cultures have been ordered no growth. * Zosyn completed treatment. * Sepsis resolved. (3) Altered mental status: Code(s): R41.82 - Altered mental status, unspecified Status: Acute Assessment and Plan: * Patient presented with altered mental status. Patient also has history of seizure disorder and may have had seizure and be postictal. Other possibilities are sepsis as she had a perforated bowel and UTI Overnight rapid response could be secondary to deterioration of mental status from Dilaudid. * MRI brain done on 03/27 did not showed any acute CVA and showed 1. Normal aging brain with minimal periventricular calcific white matter T2 hyperintensity consistent with chronic small vessel ischemic disease. No acute intracranial process * EEG as below * Recent TSH was normal, repeat today slightly low at 0.356. * Normal ammonia * Sedation held and now patient is following commands and moving all 4 extremities * Neurology following. * Avoid sedatives and monitor. * 04/10/25 Called by nurse that patient not following commands and may have a left facial droop. Patient not answering but would moan and talk to God asking him to help her. Patient in neck brace leaning left. * CT head IMPRESSION: 1. No acute intracranial process. 2. Age-related changes including mild to moderate diffuse volume loss and mild scattered white matter attenuation consistent with chronic small vessel ischemic disease. 3. Chronic left frontal craniotomy. * CT chest/abd/pelvis: IMPRESSION: 1. Change of recent partial colectomy with left lower quadrant colostomy. No abscess or bowel obstruction. 2. Mild cardiomegaly. No acute cardiopulmonary disease. 3. Nonobstructing nephrolithiasis. * Patient with decreased oral intake. NS@100 ml/hr. * UA: 1+ protein, 1+ ketones, 2+ blood, + nitrate, 2+ leukocytes, RBC 6-10, WBC 11-20, 2+ bacteria, present yeast. * Urine culture pending. * Ceftriaxone 2 gram IVPB daily. * Blood cultures obtained. * Lactic acid 0.9. * Vitamin B12 826. * Patient awake and answering questions today, patient eating and drinking. (4) C2 cervical fracture: Code(s): S12.100A - Unspecified displaced fracture of second cervical vertebra, initial encounter for closed fracture Status: Inactive Assessment and Plan: Patient had a C2 fracture from fall few weeks ago. Patient was evaluated by Neurosurgery. MRI C-spine done on this hospitalization showed following She currently in a soft C-collar. Impression: Fractured the base of the odontoid process possibly extending from the C2 vertebral body detailed above, most compatible with acute fracture. There is minimal marrow edema and suggestion of possible early cortication along the fracture margins. Alignment appears unchanged as compared to prior CT scans. Anterior fusion of C5 and C6. Moderate to advanced degenerative spondylosis otherwise, as detailed above, with multilevel neural foraminal narrowing. Continue C-collar at all times (5) Dysphagia: Qualifiers: Dysphagia type: oropharyngeal phase Qualified Code(s): R13.12 - Dysphagia, oropharyngeal phase Code(s): R13.10 - Dysphagia, unspecified Status: Acute Assessment and Plan: Patient failed her swallow study prior to surgery. Speech Therapy following. Started on oral diet and tolerating follow calorie count (6) UTI (urinary tract infection): Code(s): N39.0 - Urinary tract infection, site not specified Status: Resolved Assessment and Plan: * UA: 1+ protein, 1+ ketones, 2+ blood, + nitrate, 2+ leukocytes, RBC 6-10, WBC 11-20, 2+ bacteria, present yeast. * Urine culture pending. * Ceftriaxone 2 gram IVPB daily. * Post changed. * NS @ 75 ml/hr. (7) Seizure disorder: Code(s): G40.909 - Epilepsy, unspecified, not intractable, without status epilepticus Status: Acute Assessment and Plan: History of seizure disorder. Continue Keppra. Currently sedated with Versed 03/28 EEG. IMPRESSION This is an abnormal EEG due to following 1. Nearly continuous focal slow wave activity intermixed with sharp wave transients were seen over left frontal area. This may relate to having previous surgery in this area. Focal slowing is suggestive of underlying structural lesion. Sharp transients are considered nonspecific focal interictal abnormality. Clinical and radiographic correlation are recommended. 2. Mild his background slowing suggestive of generalized encephalopathy (8) Perforation bowel: Code(s): K63.1 - Perforation of intestine (nontraumatic) Status: Acute Assessment and Plan: 03/28 Status post 1. Exploratory laparotomy 2. Sigmoid colon resection with end descending colostomy 3. Ileal resection with [id number] ileal anastomosis Management per General surgery. Surgery okayed to restart lovenox. Antibiotics as above completed course (9) Anemia: Code(s): D64.9 - Anemia, unspecified Status: Acute Assessment and Plan: 03/30 Hemoglobin 6.2 this morning likely secondary to surgery and hemodilution. No objective evidence of bleeding at this time. Stool is brown Transfuse 1 unit PRBC and repeat hemoglobin. Coags if you Continue DVT prophylaxis Lovenox at this time. Continue PPI Hemoglobin stable at this time monitor. Despite being on DVT prophylaxis now has DVT likely PICC line associated. 6/4 H&H 7.8/26.7. 6/5 H&H 7.7/25.7. 6/6 H&H 7.1/24.1. (10) Superficial vein thrombosis: Code(s): I82.890 - Acute embolism and thrombosis of other specified veins Status: Acute Assessment and Plan: Venous Doppler shows thrombus in the left cephalic and basilic veins and left upper extremity. Continue DVT prophylaxis with Lovenox. Despite being on DVT prophylaxis now has DVT likely PICC line associated. switched to therapeutic Lovenox. (11) DVT (deep venous thrombosis): Code(s): I82.409 - Acute embolism and thrombosis of unspecified deep veins of unspecified lower extremity Status: Acute Assessment and Plan: Venous Doppler shows thrombus in the left cephalic and basilic veins and left upper extremity. Continue DVT prophylaxis with Lovenox. Despite being on DVT prophylaxis now has DVT likely PICC line associated. switched to therapeutic Lovenox. (12) Depression: Code(s): F32.A - Depression, unspecified Status: Acute Assessment and Plan: ongoing. lacks motivation Added zoloft added mirtazapine small dose avoid megace due to dvt (13) GI bleed: Code(s): K92.2 - Gastrointestinal hemorrhage, unspecified Status: Acute Assessment and Plan: Brown stool in colostomy today. General surgery and GI following. H&H however remains stable. Plan patient with c/o abdominal pain had CT scan of the abdomen and pelvic which showed sigmoid diverticulosis with 6.0 x 5.4 x 3.2 cm gas and feculent material containing cavity consistent with a contained bowel perforation which communicates to the sigmoid colon through a 1.8 x 1.3 cm defect in the wall of the colon. patient was seen by surgery service and was taken to the OR on 03/29 and had surgical repair had resection of her intestine and colostomy was placed and the surgery was uneventful, however later in the evening RR was called as patient was unresponsive and was intubated to protect patient airway. on 03/30 patient was extubated and ostomy is functioning now, patient fed via NG tube remain stable off vent in the ICU patient was transferred out of ICU to IMU on 03/31. Patient was seen by speech therapist and swallowing evaluation recommending patient can start puree diet will also continue tube feeding at half the rate to provide sufficient nutrition, however on 04/02 patient pulled out NG tube and refused to put NG tube back, ENT consulted for concern for tonsillar abscess. Disposition plan to go to [facility]/swing bed. Continue PT OT to see DVT prophylaxis - SCD, Lovenox Stress ulcer prophylaxis - PPI Nutrition -tube feeds Code Status - Full Code Subjective Date/time seen: 04/11/25 11:52 Interval history: Patient talking today and eating. Patient denies chest pain, palpitations, headache, dizziness, nausea, or vomiting. Review of Systems Review of Systems: All systems reviewed & are unremarkable except as noted in HPI and below Exam Const: General: comfortable and no acute distress Resp: Effort & Inspection: normal respiratory effort Auscultation: clear to auscultation bilaterally Cardio: Rate: regular rate Rhythm: regular rhythm GI: GI Palp: Yes Soft to palpation Auscultation: normal bowel sounds Other: Inspection: non-distended, incision (healing well with noah intact, no erythema or drainage), scar (Lower midline) and other (ostomy pink and functioning) Auscultation: normal bowel sounds present Other: Colostomy bag with liquid brown stool. Stoma is pink and viable with no areas of bleeding. No tenderness to palpation. Extrem: General: no pedal edema Psych: Affect: normal affect Objective Data Vital Signs Vital Signs: Vital Signs - 24 hr 04/10/25 14:00 04/10/25 19:49 04/10/25 20:00 Temperature 98.1 F 98.1 F Pulse Rate 112 H 100 111 H Respiratory Rate 22 H 20 Blood Pressure 123/78 155/81 H Pulse Oximetry 100 100 Oxygen Delivery 04/10/25 20:45 04/10/25 20:53 04/10/25 20:55 Temperature 102.7 F H Pulse Rate Respiratory Rate Blood Pressure Pulse Oximetry 98 Oxygen Delivery Room Air Room Air 04/10/25 21:08 04/10/25 22:08 04/11/25 00:00 Temperature 102.7 F H 102.1 F H Pulse Rate 101 H Respiratory Rate Blood Pressure Pulse Oximetry Oxygen Delivery 04/11/25 00:06 04/11/25 03:07 04/11/25 04:00 Temperature 99.3 F 98.8 F Pulse Rate 91 89 Respiratory Rate 18 Blood Pressure 134/70 Pulse Oximetry 100 Oxygen Delivery 04/11/25 07:58 Temperature 98.3 F Pulse Rate 81 Respiratory Rate 20 Blood Pressure 119/63 Pulse Oximetry 100 Oxygen Delivery Intake/Output Intake/Output: Intake & Output 04/08/25 04/09/25 04/10/25 04/11/25 23:59 23:59 23:59 23:59 Intake Total 580 183 092 8220 Output Total 1135 950 750 300 Balance -555 600 -373 960 Meds/Results Medications: Active Medications Generic Name Dose Route Start Last Admin Trade Name Freq PRN Reason Stop Dose Admin Acetaminophen 1,000 mg 04/04/25 14:11 04/11/25 09:29 Acetaminophen 500 Mg Tablet PO 1,000 mg Q6H PRN Administration fever or pain 1-3 Acetaminophen 650 mg 04/10/25 20:57 04/10/25 21:08 Acetaminophen 650 Mg Suppository RECTAL 650 mg Q4H PRN Administration Mild Pain (1-3) or Fever Albuterol/Ipratropium 3 ml 03/30/25 04:29 03/30/25 05:49 Ipratropium 0.5 Mg/Albuterol Sulfate 2.5 Mg Ampul.Neb 3 Ml INHALATION 3 ml Q6HRT PRN Administration Wheezing Amlodipine Besylate 5 mg 04/10/25 09:00 04/11/25 09:29 Amlodipine Besylate 5 Mg Tablet PO 5 mg DAILY JAYDEN Administration Enoxaparin Sodium 80 mg 04/05/25 22:00 04/11/25 09:29 Enoxaparin 80 Mg/0.8 Ml Syringe SUB-Q 80 mg Q12HR JAYDEN Administration Hydromorphone HCl 0.5 mg 04/08/25 13:06 04/09/25 08:04 Hydromorphone Hcl Inj (*Crx) 2 Mg/Ml Vial IV PUSH 0.5 mg Q4H PRN Administration Pain Rated 5-10 if npo Ceftriaxone Sodium 2 gm in 100 mls @ 200 mls/hr 04/10/25 11:00 04/11/25 10:41 Rocephin 2 Gm/Ns 100 Ml IVPB 200 mls/hr Q24H JAYDEN Administration Sodium Chloride 1,000 mls @ 100 mls/hr 04/10/25 21:05 04/11/25 09:28 Normal Saline Iv IV CONT 100 mls/hr .Q10H JAYDEN Administration Levetiracetam 1,500 mg in 100 mls @ 400 mls/hr 04/11/25 09:00 04/11/25 09:32 Keppra Iv IVPB 400 mls/hr Q12HR JAYDEN Administration Mirtazapine 7.5 mg 04/06/25 21:00 04/10/25 22:19 Mirtazapine 7.5 Mg Tablet PO Not Given HS JAYDEN Naloxone HCl 0.1 mg 03/29/25 00:02 Naloxone Hcl 0.4 Mg/Ml Vial IV PUSH Q2M PRN Opiate Reversal Ondansetron HCl 4 mg 03/26/25 14:08 Ondansetron Inj 4 Mg/2 Ml Vial IV PUSH Q6H PRN Nausea And Vomiting Pantoprazole Sodium 40 mg 04/08/25 21:00 04/11/25 09:30 Pantoprazole Sodium Iv 40 Mg Vial IV PUSH 40 mg Q12HR JAYDEN Administration Sertraline HCl 25 mg 04/06/25 18:00 04/11/25 09:29 Sertraline Hcl 25 Mg Tablet PO 25 mg QAM JAYDEN Administration Simethicone 80 mg 04/05/25 17:41 04/11/25 09:29 Simethicone 80 Mg Tab.Chew PO 80 mg QID PRN Administration Gas Discomfort Sodium Chloride 10 ml 03/29/25 14:00 04/11/25 06:58 Central Line Flush IV PUSH Not Given Q8HR JAYDEN Sodium Chloride 10 ml 03/29/25 09:36 Central Line Flush IV PUSH PRN PRN with TPN bag changes Sodium Chloride 20 ml 03/29/25 09:36 Central Line Flush IV PUSH PRN PRN after blood draws Radiology Results: ITS Impressions Modified Barium Swallow 03/27/25 15:26 IMPRESSION: Oropharyngeal dysphagia with intermittent laryngeal penetration with indeterminate/possible minimal aspiration. Please correlate with speech pathologist findings and specific feeding recommendations. Brain MRI 03/27/25 15:28 IMPRESSION: 1. Normal aging brain with minimal periventricular calcific white matter T2 hyperintensity consistent with chronic small vessel ischemic disease. No acute intracranial process. Cervical Spine MRI 03/28/25 08:39 Impression: Fractured the base of the odontoid process possibly extending from the C2 vertebral body detailed above, most compatible with acute fracture. There is minimal marrow edema and suggestion of possible early cortication along the fracture margins. Alignment appears unchanged as compared to prior CT scans. Anterior fusion of C5 and C6. Moderate to advanced degenerative spondylosis otherwise, as detailed above, with multilevel neural foraminal narrowing. Abdomen X-Ray 04/01/25 10:44 IMPRESSION: 1. Nasogastric tube in the stomach. Chest X-Ray 04/04/25 14:06 IMPRESSION: Inadvertent withdrawal of the previously identified PICC line, which now projects over the right subclavian vein, as detailed above. Venous Doppler Study 04/05/25 11:34 IMPRESSION: 1. Bilateral upper extremity venous thrombosis with deep venous thrombosis of the right subclavian and axillary veins. Head CT 04/10/25 10:35 IMPRESSION: 1. No acute intracranial process. 2. Age-related changes including mild to moderate diffuse volume loss and mild scattered white matter attenuation consistent with chronic small vessel ischemic disease. 3. Chronic left frontal craniotomy. Chest/Abdomen/Pelvis CT 04/10/25 10:37 IMPRESSION: 1. Change of recent partial colectomy with left lower quadrant colostomy. No abscess or bowel obstruction. 2. Mild cardiomegaly. No acute cardiopulmonary disease. 3. Nonobstructing nephrolithiasis. Labs Labs: Laboratory Results - last 24 hr 04/10/25 04/11/25 10:08 05:21 WBC 3.8 L RBC 2.75 L Hgb 7.1 L Hct 24.1 L MCV 87.6 MCH 25.8 L MCHC 29.5 L RDW 17.8 H Plt Count 270 MPV 10.0 Immature Gran % (Auto) 0.5 Neut % (Auto) 62.9 Lymph % (Auto) 27.4 [place] % (Auto) 6.3 Eos % (Auto) 2.6 Baso % (Auto) 0.3 Lymph # (Auto) 1.04 [place] # (Auto) 0.2 Eos # (Auto) 0.1 Baso # (Auto) 0.0 Abs Immat Gran (auto) 0.02 Absolute Neuts (auto) 2.4 Absolute Nucleated RBC 0.000 Band Neutrophils % Not Reportable Nucleated RBC % 0.0 Platelet Estimate Adequate Hypochromasia 2+ Anisocytosis 1+ Acanthocytes (Spur) 1+ Schistocytes None seen Sodium 138 Potassium 3.3 L Chloride 108 H Carbon Dioxide 22 Anion Gap 8 BUN 16 Creatinine 0.71 Estim Creat Clear Calc 58 Estimated GFR > 60 Glucose 96 Calcium 8.2 L Magnesium 2.2 Total Bilirubin 0.2 AST 140 H ALT 84 H Alkaline Phosphatase 203 H Total Protein 7.0 Albumin 2.8 L Free T4 1.13 Total T3 1.01 Quality VTE Prophylaxis VTE prophylaxis: pharmacologic ordered
--- NOTE | 2025-04-11 13:09 | PCNFU ---
Nutrition Follow-Up Complete: Inadequate energy intake related to altered GI function, mechanical ventilation as evidenced by NPO Goal: Meet estimated nutrition needs when medically able Patient is progressing towards goal. We will continue current goal. Pt current nutrition is Minced and Moist, Level 5 with Ensure Enlive TID. Last recorded weight is 75 kg, up from 72.5 kg on admit. Bowel Motility: +BM reported 04/10 Labs Reviewed: K 3.3, Alb 2.8, Hgb 7.1, Hct 24.1 Meds Noted: Protonix, Keppra, Remeron, NS Skin: WNL Additional Notes: Patient more alert today. She did drink 240 ml of Ensure Enlive and 50% of breakfast tray. Lunch assist with meals by nursing. She was eating sherbert and mashed potatoes when I visited today and was given an Ensure on lunch tray. Diet supplements providing an additional 350 kcal and 20 gm protein. Spoke with hospitalilst today regarding oral intake. Will continue to monitor. Monitoring orders, plan of care, weights, labs, output Daily in rounds. Follow up in 3 days
[2025-04-11] MEDS: HYDROmorphone HCL INJ (*CRX) 2 MG/ML VIAL 0.5 MG IV PUSH ×2 (13:12→18:33)
--- NOTE | 2025-04-11 14:02 | PCOTNOTE ---
The patient treatment was not able to be completed. Patient in to much pain at this time. RN aware and taking are of her needs. Will plan to continue treatment per plan of care.
--- NOTE | 2025-04-11 14:09 | PCPTNOTE ---
Attempted to see patient for PT, however per nursing patient having too much pain at this time and advised not to see.
[2025-04-11] MEDS: MIRTAZAPINE 7.5 MG TABLET PO (22:54)
[2025-04-12] VITALS (12 sets, daily range): BP systolic 146–153; BP diastolic 65–75; PULSE 76–102; RESP 16; TEMP 36.8–37.8; O2SAT 97–100
[2025-04-12 06:22] LABS: Basophils Percent Auto 0.5 % (0.2-1.2); Eosinophils Absolute Auto 0.3 K/mm3 (0-0.3); Hematocrit 25.1 % (37.0-47.0); Hemoglobin 7.2 g/dL (12.0-15.0); Immature Granulocyte Absolute 0.02 K/mm3 (0.00-0.031); Immature Granulocyte Percent A 0.5 % (0-0.5); Lymphocytes Percent Auto 34.5 % (18.3-44.2); Mean Corpuscular HGB Conc 28.7 g/dl (32-36); Mean Corpuscular Hemoglobin 26.1 pg (26-34); Mean Corpuscular Volume 90.9 fl (80-100); Mean Platelet Volume 9.4 fl (7.4-10.4); Monocytes Absolute Auto 0.2 K/mm3 (0.1-0.6); Monocytes Percent Auto 4.6 % (2.6-8.5); Neutrophils Absolute Auto 2.4 K/mm3 (1.3-6.7); Neutrophils Percent Auto 53.9 % (45.5-73.1); Platelet Count Result 242 k/mm3 (150-375); Red Blood Count 2.76 M/mm3 (4.2-5.4); Red Cell Distribution Width 17.6 % (11.5-14.5); White Blood Count 4.4 K/mm3 (4.5-10.0)
[2025-04-12] MEDS: ACETAMINOPHEN 500 MG TABLET 1000 MG PO ×2 (06:29→16:37)
[2025-04-12 06:59] LABS: Anisocytosis 1+; Burr Cells 1+; Hypochromasia 1+; Platelet Estimate Adequate (Adequate); Schistocytes None Seen; Target Cells 1+
[2025-04-12 07:17] LABS: Alanine Aminotransferase 58 U/L (6-35); Albumin Level 2.5 g/dL (3.5-5.1); Alkaline Phosphatase 179 U/L (38-126); Anion Gap 7 mmol/L (4-12); Aspartate Amino Transferase 65 U/L (14-36); Bilirubin,Total < 0.1 mg/dL (0.2-1.3); Blood Urea Nitrogen 13 mg/dL (7-17); Calcium 8.1 mg/dL (8.4-10.2); Carbon Dioxide 19 mmol/L (22-30); Chloride 113 mmol/L (98-107); Estimated CRCL calculation 69 ml/min; Estimated Glomerular Filt Rate > 60; Glucose 140 mg/dL (65-110); Potassium 3.5 mmol/L (3.4-5.0); Sodium 139 mmol/L (137-145); Total Protein 6.4 g/dL (6.3-8.2)
[2025-04-12] MEDS: SODIUM CHLORIDE 0.9% IV 1,000 ML 75 ML IV CONT ×2 (08:09→22:46)
[2025-04-12] MEDS: PANTOPRAZOLE SODIUM IV 40 MG VIAL IV PUSH ×2 (08:11→21:04)
[2025-04-12] MEDS: ENOXAPARIN 80 MG/0.8 ML SYRINGE SUB-Q ×2 (08:11→21:05)
[2025-04-12] MEDS: SIMETHICONE 80 MG TAB.CHEW PO (08:12)
[2025-04-12] MEDS: amLODIPine BESYLATE 5 MG TABLET PO (08:12)
[2025-04-12] MEDS: SERTRALINE HCL 25 MG TABLET PO (08:12)
[2025-04-12] MEDS: levETIRAcetam 1500MG/NACL100ML 1,500 MG/100 ML BAG 400 MG IVPB ×2 (08:41→21:04)
--- NOTE | 2025-04-12 08:43 | PC.NURSE ---
Manan did not scan. Second RN (charge), Jess, confirmed with primary RN and medication was manually entered and given.
--- NOTE | 2025-04-12 11:00 | P.PNIM_ITS ---
Progress Note: A&P Assessment and Plan (1) Acute respiratory failure: Code(s): J96.00 - Acute respiratory failure, unspecified whether with hypoxia or hypercapnia Status: Acute Assessment and Plan: * Acute Respiratory failure secondary to altered mental status and inability to protect airway * Patient was intubated and extubated on 03/30 * Currently on room air * Avoid sedatives * Incentive spirometry patient can do it * Bronchodilators (2) Sepsis: Code(s): A41.9 - Sepsis, unspecified organism Status: Acute Assessment and Plan: * Sepsis secondary to bowel perforation, peritonitis, UTI * Blood and urine cultures have been ordered no growth. * Zosyn completed treatment. * Sepsis resolved. (3) Altered mental status: Code(s): R41.82 - Altered mental status, unspecified Status: Acute Assessment and Plan: * Patient presented with altered mental status. Patient also has history of seizure disorder and may have had seizure and be postictal. Other possibilities are sepsis as she had a perforated bowel and UTI Overnight rapid response could be secondary to deterioration of mental status from Dilaudid. * MRI brain done on 03/27 did not showed any acute CVA and showed 1. Normal aging brain with minimal periventricular calcific white matter T2 hyperintensity consistent with chronic small vessel ischemic disease. No acute intracranial process * EEG as below * Recent TSH was normal, repeat today slightly low at 0.356. * Normal ammonia * Sedation held and now patient is following commands and moving all 4 extremities * Neurology following. * Avoid sedatives and monitor. * 04/10/25 Called by nurse that patient not following commands and may have a left facial droop. Patient not answering but would moan and talk to God asking him to help her. Patient in neck brace leaning left. * CT head IMPRESSION: 1. No acute intracranial process. 2. Age-related changes including mild to moderate diffuse volume loss and mild scattered white matter attenuation consistent with chronic small vessel ischemic disease. 3. Chronic left frontal craniotomy. * CT chest/abd/pelvis: IMPRESSION: 1. Change of recent partial colectomy with left lower quadrant colostomy. No abscess or bowel obstruction. 2. Mild cardiomegaly. No acute cardiopulmonary disease. 3. Nonobstructing nephrolithiasis. * Patient with decreased oral intake. NS@100 ml/hr. * UA: 1+ protein, 1+ ketones, 2+ blood, + nitrate, 2+ leukocytes, RBC 6-10, WBC 11-20, 2+ bacteria, present yeast. * Urine culture pending. * Ceftriaxone 2 gram IVPB daily. * Blood cultures obtained. * Lactic acid 0.9. * Vitamin B12 826. * Patient awake and answering questions today, patient eating and drinking. (4) C2 cervical fracture: Code(s): S12.100A - Unspecified displaced fracture of second cervical vertebra, initial encounter for closed fracture Status: Inactive Assessment and Plan: Patient had a C2 fracture from fall few weeks ago. Patient was evaluated by Neurosurgery. MRI C-spine done on this hospitalization showed following She currently in a soft C-collar. Impression: Fractured the base of the odontoid process possibly extending from the C2 vertebral body detailed above, most compatible with acute fracture. There is minimal marrow edema and suggestion of possible early cortication along the fracture margins. Alignment appears unchanged as compared to prior CT scans. Anterior fusion of C5 and C6. Moderate to advanced degenerative spondylosis otherwise, as detailed above, with multilevel neural foraminal narrowing. Continue C-collar at all times (5) Dysphagia: Qualifiers: Dysphagia type: oropharyngeal phase Qualified Code(s): R13.12 - Dysphagia, oropharyngeal phase Code(s): R13.10 - Dysphagia, unspecified Status: Acute Assessment and Plan: * Patient failed her swallow study prior to surgery. * Speech Therapy following. Started on oral diet and tolerating * follow calorie count (6) UTI (urinary tract infection): Code(s): N39.0 - Urinary tract infection, site not specified Status: Resolved Assessment and Plan: * UA: 1+ protein, 1+ ketones, 2+ blood, + nitrate, 2+ leukocytes, RBC 6-10, WBC 11-20, 2+ bacteria, present yeast. * Urine culture pending. * Ceftriaxone 2 gram IVPB daily. * Post changed. * NS @ 75 ml/hr. (7) Seizure disorder: Code(s): G40.909 - Epilepsy, unspecified, not intractable, without status epilepticus Status: Acute Assessment and Plan: History of seizure disorder. Continue Keppra. Currently sedated with Versed 03/28 EEG. IMPRESSION This is an abnormal EEG due to following 1. Nearly continuous focal slow wave activity intermixed with sharp wave transients were seen over left frontal area. This may relate to having previous surgery in this area. Focal slowing is suggestive of underlying structural lesi on. Sharp transients are considered nonspecific focal interictal abnormality. Clinical and radiographic correlation are recommended. 2. Mild his background slowing suggestive of generalized encephalopathy (8) Perforation bowel: Code(s): K63.1 - Perforation of intestine (nontraumatic) Status: Acute Assessment and Plan: 03/28 Status post 1. Exploratory laparotomy 2. Sigmoid colon resection with end descending colostomy 3. Ileal resection with [id number] ileal anastomosis Management per General surgery. Surgery okayed to restart lovenox. Antibiotics as above completed course (9) Anemia: Code(s): D64.9 - Anemia, unspecified Status: Acute Assessment and Plan: 03/30 Hemoglobin 6.2 this morning likely secondary to surgery and hemodilution. No objective evidence of bleeding at this time. Stool is brown Transfuse 1 unit PRBC and repeat hemoglobin. Coags if you Continue DVT prophylaxis Lovenox at this time. Continue PPI Hemoglobin stable at this time monitor. Despite being on DVT prophylaxis now has DVT likely PICC line associated. 6/4 H&H 7.8/26.7. 6/5 H&H 7.7/25.7. 6/6 H&H 7.1/24.1. 6/7 H&H 7.2/25.1. (10) Superficial vein thrombosis: Code(s): I82.890 - Acute embolism and thrombosis of other specified veins Status: Acute Assessment and Plan: * Venous Doppler shows thrombus in the left cephalic and basilic veins and left upper extremity. * Continue DVT prophylaxis with Lovenox. * Despite being on DVT prophylaxis now has DVT likely PICC line associated. switched to therapeutic Lovenox. * Picc line removed on 04/11/25. (11) DVT (deep venous thrombosis): Code(s): I82.409 - Acute embolism and thrombosis of unspecified deep veins of unspecified lower extremity Status: Acute Assessment and Plan: * Venous Doppler shows thrombus in the left cephalic and basilic veins and left upper extremity. * Continue DVT prophylaxis with Lovenox. * Despite being on DVT prophylaxis now has DVT likely PICC line associated. switched to therapeutic Lovenox. * Picc line removed on 04/11/25. (12) Depression: Code(s): F32.A - Depression, unspecified Status: Acute Assessment and Plan: ongoing. lacks motivation Added zoloft added mirtazapine small dose avoid megace due to dvt (13) GI bleed: Code(s): K92.2 - Gastrointestinal hemorrhage, unspecified Status: Acute Assessment and Plan: * Brown stool in colostomy today. * General surgery and GI following. * H&H however remains stable. Plan patient with c/o abdominal pain had CT scan of the abdomen and pelvic which showed sigmoid diverticulosis with 6.0 x 5.4 x 3.2 cm gas and feculent material containing cavity consistent with a contained bowel perforation which communic ates to the sigmoid colon through a 1.8 x 1.3 cm defect in the wall of the colon. patient was seen by surgery service and was taken to the OR on 03/29 and had surgical repair had resection of her intestine and colostomy was placed and the surgery was uneventful, however later in the evening RR was called as patient was unresponsive and was intubated to protect patient airway. on 03/30 patient was extubated and ostomy is functioning now, patient fed via NG tube remain stable off vent in the ICU patient was transferred out of ICU to IMU on 03/31. Patient was seen by speech therapist and swallowing evaluation recommending patient can start puree diet will also continue tube feeding at half the rate to provide sufficient nutrition, however on 04/02 patient pulled out NG tube and refused to put NG tube back, ENT consulted for concern for tonsillar abscess. Disposition plan to go to [place] [facility]/swing bed. Continue PT OT to see DVT prophylaxis - SCD, Lovenox Stress ulcer prophylaxis - PPI Code Status - Full Code Subjective Date/time seen: 04/12/25 11:00 Interval history: Patient reports feeling better today. Daughter at bedside. Patient denies chest pain, palpitations, headache, dizziness, nausea, or vomiting. Review of Systems Review of Systems: All systems reviewed & are unremarkable except as noted in HPI and below Exam Const: General: comfortable and no acute distress Resp: Effort & Inspection: normal respiratory effort Auscultation: clear to auscultation bilaterally Cardio: Rate: regular rate Rhythm: regular rhythm GI: GI Palp: Yes Soft to palpation Auscultation: normal bowel sounds Neuro: Speech: normal speech Extrem: General: no pedal edema Psych: Affect: normal affect Other: Pleasant, talking, and smiling today. Objective Data Vital Signs Vital Signs: Vital Signs - 24 hr 04/11/25 12:00 04/11/25 12:00 04/11/25 16:00 Temperature 97.8 F Pulse Rate 88 90 92 Respiratory Rate 18 Blood Pressure 131/61 Pulse Oximetry 100 Oxygen Delivery Fraction of Inspired Oxygen 04/11/25 16:00 04/11/25 20:00 04/11/25 20:00 Temperature 98.2 F Pulse Rate 92 102 H Respiratory Rate 16 Blood Pressure 129/68 Pulse Oximetry 99 Oxygen Delivery Room Air Fraction of Inspired Oxygen 04/11/25 21:13 04/11/25 22:10 04/12/25 00:00 Temperature 99.6 F Pulse Rate 100 98 102 H Respiratory Rate 16 Blood Pressure 150/75 H Pulse Oximetry 98 99 Oxygen Delivery Room Air Fraction of Inspired Oxygen 21 04/12/25 00:35 04/12/25 04:00 04/12/25 05:40 Temperature 99.4 F 100.0 F H Pulse Rate 100 100 100 Respiratory Rate 16 16 Blood Pressure 149/72 H 153/67 H Pulse Oximetry 100 100 Oxygen Delivery Fraction of Inspired Oxygen 04/12/25 06:29 04/12/25 08:00 04/12/25 08:25 Temperature 100 F H Pulse Rate 96 Respiratory Rate Blood Pressure Pulse Oximetry Oxygen Delivery Room Air Fraction of Inspired Oxygen Intake/Output Intake/Output: Intake & Output 04/09/25 04/10/25 04/11/25 04/12/25 23:59 23:59 23:59 23:59 Intake Total 195 152 3518.3 920 Output Total 642 367 9890 950 Balance -600 -460 1953.3 -30 Meds/Results Medications: Active Medications Generic Name Dose Route Start Last Admin Trade Name Freq PRN Reason Stop Dose Admin Acetaminophen 1,000 mg 04/04/25 14:11 04/12/25 06:29 Acetaminophen 500 Mg Tablet PO 1,000 mg Q6H PRN Administration fever or pain 1-3 Acetaminophen 650 mg 04/10/25 20:57 04/10/25 21:08 Acetaminophen 650 Mg Suppository RECTAL 650 mg Q4H PRN Administration Mild Pain (1-3) or Fever Albuterol/Ipratropium 3 ml 03/30/25 04:29 03/30/25 05:49 Ipratropium 0.5 Mg/Albuterol Sulfate 2.5 Mg Ampul.Neb 3 Ml INHALATION 3 ml Q6HRT PRN Administration Wheezing Amlodipine Besylate 5 mg 04/10/25 09:00 04/12/25 08:12 Amlodipine Besylate 5 Mg Tablet PO 5 mg DAILY JAYDEN Administration Enoxaparin Sodium 80 mg 04/05/25 22:00 04/12/25 08:11 Enoxaparin 80 Mg/0.8 Ml Syringe SUB-Q 80 mg Q12HR JAYDEN Administration Hydromorphone HCl 0.5 mg 04/08/25 13:06 04/11/25 18:33 Hydromorphone Hcl Inj (*Crx) 2 Mg/Ml Vial IV PUSH 0.5 mg Q4H PRN Administration Pain Rated 5-10 if npo Ceftriaxone Sodium 2 gm in 100 mls @ 200 mls/hr 04/10/25 11:00 04/11/25 10:41 Rocephin 2 Gm/Ns 100 Ml IVPB 200 mls/hr Q24H JAYDEN Administration Sodium Chloride 1,000 mls @ 75 mls/hr 04/10/25 21:05 04/12/25 08:09 Normal Saline Iv IV CONT 75 mls/hr .[id number] JAYDEN Administration Levetiracetam 1,500 mg in 100 mls @ 400 mls/hr 04/11/25 09:00 04/12/25 08:41 Keppra Iv IVPB 400 mls/hr Q12HR JAYDEN Administration Mirtazapine 7.5 mg 04/06/25 21:00 04/11/25 22:54 Mirtazapine 7.5 Mg Tablet PO 7.5 mg HS JAYDEN Administration Naloxone HCl 0.1 mg 03/29/25 00:02 Naloxone Hcl 0.4 Mg/Ml Vial IV PUSH Q2M PRN Opiate Reversal Ondansetron HCl 4 mg 03/26/25 14:08 Ondansetron Inj 4 Mg/2 Ml Vial IV PUSH Q6H PRN Nausea And Vomiting Pantoprazole Sodium 40 mg 04/08/25 21:00 04/12/25 08:11 Pantoprazole Sodium Iv 40 Mg Vial IV PUSH 40 mg Q12HR JAYDEN Administration Sertraline HCl 25 mg 04/06/25 18:00 04/12/25 08:12 Sertraline Hcl 25 Mg Tablet PO 25 mg QAM JAYDEN Administration Simethicone 80 mg 04/05/25 17:41 04/12/25 08:12 Simethicone 80 Mg Tab.Chew PO 80 mg QID PRN Administration Gas Discomfort Sodium Chloride 10 ml 03/29/25 09:36 Central Line Flush IV PUSH PRN PRN with TPN bag changes Sodium Chloride 20 ml 03/29/25 09:36 Central Line Flush IV PUSH PRN PRN after blood draws Radiology Results: ITS Impressions Modified Barium Swallow 03/27/25 15:26 IMPRESSION: Oropharyngeal dysphagia with intermittent laryngeal penetration with indeterminate/possible minimal aspiration. Please correlate with speech pathologist findings and specific feeding recommendations. Brain MRI 03/27/25 15:28 IMPRESSION: 1. Normal aging brain with minimal periventricular calcific white matter T2 hyperintensity consistent with chronic small vessel ischemic disease. No acute intracranial process. Cervical Spine MRI 03/28/25 08:39 Impression: Fractured the base of the odontoid process possibly extending from the C2 vertebral body detailed above, most compatible with acute fracture. There is minimal marrow edema and suggestion of possible early cortication along the fracture margins. Alignment appears unchanged as compared to prior CT scans. Anterior fusion of C5 and C6. Moderate to advanced degenerative spondylosis otherwise, as detailed above, with multilevel neural foraminal narrowing. Abdomen X-Ray 04/01/25 10:44 IMPRESSION: 1. Nasogastric tube in the stomach. Chest X-Ray 04/04/25 14:06 IMPRESSION: Inadvertent withdrawal of the previously identified PICC line, which now projects over the right subclavian vein, as detailed above. Venous Doppler Study 04/05/25 11:34 IMPRESSION: 1. Bilateral upper extremity venous thrombosis with deep venous thrombosis of the right subclavian and axillary veins. Head CT 04/10/25 10:35 IMPRESSION: 1. No acute intracranial process. 2. Age-related changes including mild to moderate diffuse volume loss and mild scattered white matter attenuation consistent with chronic small vessel ischemic disease. 3. Chronic left frontal craniotomy. Chest/Abdomen/Pelvis CT 04/10/25 10:37 IMPRESSION: 1. Change of recent partial colectomy with left lower quadrant colostomy. No abscess or bowel obstruction. 2. Mild cardiomegaly. No acute cardiopulmonary disease. 3. Nonobstructing nephrolithiasis. Labs Labs: Laboratory Results - last 24 hr 04/12/25 06:17 WBC 4.4 L RBC 2.76 L Hgb 7.2 L Hct 25.1 L MCV 90.9 MCH 26.1 MCHC 28.7 L RDW 17.6 H Plt Count 242 MPV 9.4 Immature Gran % (Auto) 0.5 Neut % (Auto) 53.9 Lymph % (Auto) 34.5 [place] % (Auto) 4.6 Eos % (Auto) 6.0 H Baso % (Auto) 0.5 Lymph # (Auto) 1.50 [place] # (Auto) 0.2 Eos # (Auto) 0.3 Baso # (Auto) 0.0 Abs Immat Gran (auto) 0.02 Absolute Neuts (auto) 2.4 Absolute Nucleated RBC 0.000 Band Neutrophils % Not Reportable Nucleated RBC % 0.0 Platelet Estimate Adequate Hypochromasia 1+ Anisocytosis 1+ Target Cells 1+ Tamika Cells 1+ Schistocytes None seen Sodium 139 Potassium 3.5 Chloride 113 H Carbon Dioxide 19 L Anion Gap 7 BUN 13 Creatinine 0.58 L Estim Creat Clear Calc 69 Estimated GFR > 60 Glucose 140 H Calcium 8.1 L Magnesium 2.0 Total Bilirubin < 0.1 L AST 65 H ALT 58 H Alkaline Phosphatase 179 H Total Protein 6.4 Albumin 2.5 L Quality VTE Prophylaxis VTE prophylaxis: pharmacologic ordered
[2025-04-12] MEDS: cefTRIAXone 2 GM/NS 100 ML 2 GM/100 ML BAG IVPB (11:50)
[2025-04-12] MEDS: MIRTAZAPINE 7.5 MG TABLET PO (21:05)
[2025-04-13] VITALS (10 sets, daily range): BP systolic 149–178; BP diastolic 68–82; PULSE 90–105; RESP 16–20; TEMP 36.9–37.6; O2SAT 100
[2025-04-13 05:00] LABS: Basophils Percent Auto 0.3 % (0.2-1.2); Eosinophils Absolute Auto 0.1 K/mm3 (0-0.3); Eosinophils Percent Auto 1.8 % (0-4.4); Immature Granulocyte Absolute 0.02 K/mm3 (0.00-0.031); Immature Granulocyte Percent A 0.6 % (0-0.5); Lymphocytes Absolute Auto 1.41 K/mm3 (0.9-3.2); Lymphocytes Percent Auto 43.1 % (18.3-44.2); Mean Corpuscular HGB Conc 29.2 g/dl (32-36); Mean Corpuscular Hemoglobin 25.7 pg (26-34); Mean Corpuscular Volume 88.2 fl (80-100); Mean Platelet Volume 9.6 fl (7.4-10.4); Monocytes Absolute Auto 0.2 K/mm3 (0.1-0.6); Monocytes Percent Auto 4.9 % (2.6-8.5); Neutrophils Absolute Auto 1.6 K/mm3 (1.3-6.7); Neutrophils Percent Auto 49.3 % (45.5-73.1); Platelet Count Result 230 k/mm3 (150-375); Red Blood Count 2.72 M/mm3 (4.2-5.4); Red Cell Distribution Width 17.2 % (11.5-14.5); White Blood Count 3.3 K/mm3 (4.5-10.0)
[2025-04-13 05:20] LABS: Alanine Aminotransferase 49 U/L (6-35); Albumin Level 2.7 g/dL (3.5-5.1); Alkaline Phosphatase 185 U/L (38-126); Anion Gap 8 mmol/L (4-12); Aspartate Amino Transferase 51 U/L (14-36); Bilirubin,Total 0.2 mg/dL (0.2-1.3); Blood Urea Nitrogen 6 mg/dL (7-17); Calcium 7.9 mg/dL (8.4-10.2); Carbon Dioxide 21 mmol/L (22-30); Chloride 108 mmol/L (98-107); Estimated CRCL calculation 88 ml/min; Estimated Glomerular Filt Rate > 60; Glucose 99 mg/dL (65-110); Magnesium 1.8 mg/dL (1.6-2.3); Potassium 3.1 mmol/L (3.4-5.0); Sodium 137 mmol/L (137-145); Total Protein 6.9 g/dL (6.3-8.2)
[2025-04-13 05:28] LABS: Hypochromasia 2+; Platelet Estimate Adequate (Adequate)
[2025-04-13 05:29] LABS: Anisocytosis 1+; Microcytosis 1+ (NORMAL); Ovalocytes 1+; Target Cells 1+
[2025-04-13 05:30] LABS: Schistocytes None Seen
[2025-04-13] MEDS: PANTOPRAZOLE SODIUM IV 40 MG VIAL IV PUSH ×2 (08:02→20:57)
[2025-04-13] MEDS: amLODIPine BESYLATE 5 MG TABLET PO (08:04)
[2025-04-13] MEDS: SERTRALINE HCL 25 MG TABLET PO (08:04)
[2025-04-13] MEDS: levETIRAcetam 1500MG/NACL100ML 1,500 MG/100 ML BAG 400 MG IVPB ×2 (08:07→20:57)
[2025-04-13] MEDS: ENOXAPARIN 80 MG/0.8 ML SYRINGE SUB-Q ×2 (08:09→20:57)
[2025-04-13] MEDS: POTASSIUM CHLORIDE 20 MEQ ER TABLET 40 MEQ PO (10:41)
[2025-04-13] MEDS: cefTRIAXone 2 GM/NS 100 ML 2 GM/100 ML BAG IVPB (10:43)
[2025-04-13] MEDS: SODIUM CHLORIDE 0.9% IV 1,000 ML 75 ML IV CONT (10:45)
--- NOTE | 2025-04-13 11:00 | P.PNIM_ITS ---
Progress Note: A&P Assessment and Plan (1) Acute respiratory failure: Code(s): J96.00 - Acute respiratory failure, unspecified whether with hypoxia or hypercapnia Status: Acute Assessment and Plan: * Acute Respiratory failure secondary to altered mental status and inability to protect airway * Patient was intubated and extubated on 03/30 * Currently on room air * Avoid sedatives * Incentive spirometry patient can do it * Bronchodilators (2) Sepsis: Code(s): A41.9 - Sepsis, unspecified organism Status: Acute Assessment and Plan: * Sepsis secondary to bowel perforation, peritonitis, UTI * Blood and urine cultures have been ordered no growth. * Zosyn completed treatment. * Sepsis resolved. (3) Altered mental status: Code(s): R41.82 - Altered mental status, unspecified Status: Acute Assessment and Plan: * Patient presented with altered mental status. Patient also has history of seizure disorder and may have had seizure and be postictal. Other possibilities are sepsis as she had a perforated bowel and UTI Overnight rapid response could be secondary to deterioration of mental status from Dilaudid. * MRI brain done on 03/27 did not showed any acute CVA and showed 1. Normal aging brain with minimal periventricular calcific white matter T2 hyperintensity consistent with chronic small vessel ischemic disease. No acute intracranial process * EEG as below * Recent TSH was normal, repeat today slightly low at 0.356. * Normal ammonia * Sedation held and now patient is following commands and moving all 4 extremities * Neurology following. * Avoid sedatives and monitor. * 04/10/25 Called by nurse that patient not following commands and may have a left facial droop. Patient not answering but would moan and talk to God asking him to help her. Patient in neck brace leaning left. * CT head IMPRESSION: 1. No acute intracranial process. 2. Age-related changes including mild to moderate diffuse volume loss and mild scattered white matter attenuation consistent with chronic small vessel ischemic disease. 3. Chronic left frontal craniotomy. * CT chest/abd/pelvis: IMPRESSION: 1. Change of recent partial colectomy with left lower quadrant colostomy. No abscess or bowel obstruction. 2. Mild cardiomegaly. No acute cardiopulmonary disease. 3. Nonobstructing nephrolithiasis. * Patient with decreased oral intake. NS@100 ml/hr. * UA: 1+ protein, 1+ ketones, 2+ blood, + nitrate, 2+ leukocytes, RBC 6-10, WBC 11-20, 2+ bacteria, present yeast. * Urine culture negative. * Ceftriaxone 2 gram IVPB daily. * Blood cultures obtained no growth to date. * Lactic acid 0.9. * Vitamin B12 826. * Patient awake and answering questions today, patient eating and drinking. (4) C2 cervical fracture: Code(s): S12.100A - Unspecified displaced fracture of second cervical vertebra, initial encounter for closed fracture Status: Inactive Assessment and Plan: Patient had a C2 fracture from fall few weeks ago. Patient was evaluated by [facility]. MRI C-spine done on this hospitalization showed following She currently in a soft C-collar. Impression: Fractured the base of the odontoid process possibly extending from the C2 vertebral body detailed above, most compatible with acute fracture. There is minimal marrow edema and suggestion of possible early cortication along the fracture margins. Alignment appears unchanged as compared to prior CT scans. Anterior fusion of C5 and C6. Moderate to advanced degenerative spondylosis otherwise, as detailed above, with multilevel neural foraminal narrowing. Continue C-collar at all times (5) Dysphagia: Qualifiers: Dysphagia type: oropharyngeal phase Qualified Code(s): R13.12 - Dysphagia, oropharyngeal phase Code(s): R13.10 - Dysphagia, unspecified Status: Acute Assessment and Plan: * Patient failed her swallow study prior to surgery. * Speech Therapy following. Started on oral diet and tolerating * follow calorie count (6) UTI (urinary tract infection): Code(s): N39.0 - Urinary tract infection, site not specified Status: Resolved Assessment and Plan: * UA: 1+ protein, 1+ ketones, 2+ blood, + nitrate, 2+ leukocytes, RBC 6-10, WBC 11-20, 2+ bacteria, present yeast. * Urine culture pending. * Ceftriaxone 2 gram IVPB daily. * Post changed. * NS @ 75 ml/hr. (7) Seizure disorder: Code(s): G40.909 - Epilepsy, unspecified, not intractable, without status epilepticus Status: Acute Assessment and Plan: History of seizure disorder. Continue Keppra. Currently sedated with Versed 03/28 EEG. IMPRESSION This is an abnormal EEG due to following 1. Nearly continuous focal slow wave activity intermixed with sharp wave transients were seen over left frontal area. This may relate to having previous surgery in this area. Focal slowing is suggestive of underlying structural lesion. Sharp transients are considered nonspecific focal interictal abnormality. Clinical and radiographic correlation are recommended. 2. Mild his background slowing suggestive of generalized encephalopathy (8) Perforation bowel: Code(s): K63.1 - Perforation of intestine (nontraumatic) Status: Acute Assessment and Plan: 03/28 Status post 1. Exploratory laparotomy 2. Sigmoid colon resection with end descending colostomy 3. Ileal resection with [id number] ileal anastomosis Management per General surgery. Surgery okayed to restart lovenox. Antibiotics as above completed course (9) Anemia: Code(s): D64.9 - Anemia, unspecified Status: Acute Assessment and Plan: 03/30 Hemoglobin 6.2 this morning likely secondary to surgery and hemodilution. No objective evidence of bleeding at this time. Stool is brown Transfuse 1 unit PRBC and repeat hemoglobin. Coags if you Continue DVT prophylaxis Lovenox at this time. Continue PPI Hemoglobin stable at this time monitor. Despite being on DVT prophylaxis now has DVT likely PICC line associated. Picc line discontinued. 6/4 H&H 7.8/26.7. 6/5 H&H 7.7/25.7. 6/6 H&H 7.1/24.1. 6/7 H&H 7.2/25.1. 6/8 H&H 7.0/24.0. (10) Superficial vein thrombosis: Code(s): I82.890 - Acute embolism and thrombosis of other specified veins Status: Acute Assessment and Plan: * Venous Doppler shows thrombus in the left cephalic and basilic veins and left upper extremity. * Continue DVT prophylaxis with Lovenox. * Despite being on DVT prophylaxis now has DVT likely PICC line associated. sw itched to therapeutic Lovenox. * Picc line removed on 04/11/25. (11) DVT (deep venous thrombosis): Code(s): I82.409 - Acute embolism and thrombosis of unspecified deep veins of unspecified lower extremity Status: Acute Assessment and Plan: * Venous Doppler shows thrombus in the left cephalic and basilic veins and left upper extremity. * Continue DVT prophylaxis with Lovenox. * Despite being on DVT prophylaxis now has DVT likely PICC line associated. switched to therapeutic Lovenox. * Picc line removed on 04/11/25. (12) Depression: Code(s): F32.A - Depression, unspecified Status: Acute Assessment and Plan: ongoing. lacks motivation Added zoloft added mirtazapine small dose avoid megace due to dvt (13) GI bleed: Code(s): K92.2 - Gastrointestinal hemorrhage, unspecified Status: Acute Assessment and Plan: * Brown stool in colostomy today. * General surgery and GI following. * H&H however remains stable. (14) Hypokalemia: Code(s): E87.6 - Hypokalemia Status: Acute Assessment and Plan: * Potassium 3.1. * Patient given Potassium Chloride 40 meq PO X 1. * Monitor level. Plan patient with c/o abdominal pain had CT scan of the abdomen and pelvic which showed sigmoid diverticulosis with 6.0 x 5.4 x 3.2 cm gas and feculent material containing cavity consistent with a contained bowel perforation which communicates to the sigmoid colon through a 1.8 x 1.3 cm defect in the wall of the colon. patient was seen by surgery service and was taken to the OR on 03/29 and had surgical repair had resection of her intestine and colostomy was placed and the surgery was uneventful, however later in the evening RR was called as patient was unresponsive and was intubated to protect patient airway. on 03/30 patient was extubated and ostomy is functioning now, patient fed via NG tube remain stable off vent in the ICU patient was transferred out of ICU to IMU on 03/31. Patient was seen by speech therapist and swallowing evaluation r ecommending patient can start puree diet will also continue tube feeding at half the rate to provide sufficient nutrition, however on 04/02 patient pulled out NG tube and refused to put NG tube back, ENT consulted for concern for tonsillar abscess. Disposition plan to go to [facility] bed. Continue PT OT to see DVT prophylaxis - SCD, Lovenox Stress ulcer prophylaxis - PPI Code Status - Full Code Subjective Date/time seen: 04/13/25 11:00 Interval history: Patient sitting up in bed. Patient reports feeling better today. Patient denies chest pain, palpitations, headache, dizziness, nausea, or vomiting. Discussed with patient the importance of her eating and drinking more. Explained that she needs to have more intake and discussed that if she does not improve intake we would need to discuss a feeding tube. Patient agreeable to try to eat/drink more and does not want a feeding tube. Review of Systems Review of Systems: All systems reviewed & are unremarkable except as noted in HPI and below Exam Const: General: comfortable and no acute distress Resp: Effort & Inspection: normal respiratory effort Auscultation: clear to auscultation bilaterally Cardio: Rate: regular rate Rhythm: regular rhythm Other: Telemetry- SR 95. GI: GI Palp: Yes Soft to palpation Auscultation: normal bowel sounds Other: Colostomy with brown stool. Neuro: Speech: normal speech Extrem: General: no pedal edema Psych: Affect: normal affect Other: Pleasant and talkative today. Objective Data Vital Signs Vital Signs: Vital Signs - 24 hr 04/12/25 11:19 04/12/25 12:00 04/12/25 16:00 Temperature 98.6 F Pulse Rate 91 89 94 Respiratory Rate 16 Blood Pressure 146/75 H Pulse Oximetry 100 Oxygen Delivery Fraction of Inspired Oxygen 04/12/25 16:40 04/12/25 20:00 04/12/25 20:00 Temperature 99.6 F Pulse Rate 98 98 96 Respiratory Rate 16 16 Blood Pressure 150/65 H Pulse Oximetry 100 100 Oxygen Delivery Room Air Fraction of Inspired Oxygen 21 04/12/25 22:09 04/13/25 00:00 04/13/25 00:16 Temperature 98.2 F 99.6 F Pulse Rate 76 91 96 Respiratory Rate 16 16 Blood Pressure 151/68 H 149/81 H Pulse Oximetry 97 100 Oxygen Delivery Fraction of Inspired Oxygen 04/13/25 04:00 04/13/25 07:24 04/13/25 08:00 Temperature 98.9 F 98.5 F Pulse Rate 105 H 90 92 Respiratory Rate 16 18 Blood Pressure 149/68 H 178/76 H Pulse Oximetry 100 100 Oxygen Delivery Fraction of Inspired Oxygen 04/13/25 08:07 04/13/25 08:07 Temperature Pulse Rate 92 93 Respiratory Rate 18 Blood Pressure Pulse Oximetry 100 Oxygen Delivery Room Air Fraction of Inspired Oxygen 21 Intake/Output Intake/Output: Intake & Output 04/10/25 04/11/25 04/12/25 04/13/25 23:59 23:59 23:59 23:59 Intake Total 290 3153.3 2840 1538.7 Output Total 750 1100 1875 1000 Balance -460 2053.3 965 538.7 Meds/Results Medications: Active Medications Generic Name Dose Route Start Last Admin Trade Name Freq PRN Reason Stop Dose Admin Acetaminophen 1,000 mg 04/04/25 14:11 04/12/25 16:37 Acetaminophen 500 Mg Tablet PO 1,000 mg Q6H PRN Administration fever or pain 1-3 Acetaminophen 650 mg 04/10/25 20:57 04/10/25 21:08 Acetaminophen 650 Mg Suppository RECTAL 650 mg Q4H PRN Administration Mild Pain (1-3) or Fever Albuterol/Ipratropium 3 ml 03/30/25 04:29 03/30/25 05:49 Ipratropium 0.5 Mg/Albuterol Sulfate 2.5 Mg Ampul.Neb 3 Ml INHALATION 3 ml Q6HRT PRN Administration Wheezing Amlodipine Besylate 5 mg 04/10/25 09:00 04/13/25 08:04 Amlodipine Besylate 5 Mg Tablet PO 5 mg DAILY JAYDEN Administration Enoxaparin Sodium 80 mg 04/05/25 22:00 04/13/25 08:09 Enoxaparin 80 Mg/0.8 Ml Syringe SUB-Q 80 mg Q12HR JAYDEN Administration Hydromorphone HCl 0.5 mg 04/08/25 13:06 04/11/25 18:33 Hydromorphone Hcl Inj (*Crx) 2 Mg/Ml Vial IV PUSH 0.5 mg Q4H PRN Administration Pain Rated 5-10 if npo Ceftriaxone Sodium 2 gm in 100 mls @ 200 mls/hr 04/10/25 11:00 04/13/25 10:43 Rocephin 2 Gm/Ns 100 Ml IVPB 200 mls/hr Q24H JAYDEN Administration Sodium Chloride 1,000 mls @ 75 mls/hr 04/10/25 21:05 04/13/25 10:45 Normal Saline Iv IV CONT 75 mls/hr .[id number] JAYDEN Administration Levetiracetam 1,500 mg in 100 mls @ 400 mls/hr 04/11/25 09:00 04/13/25 08:22 Keppra Iv IVPB Infused Q12HR JAYDEN Infusion Mirtazapine 7.5 mg 04/06/25 21:00 04/12/25 21:05 Mirtazapine 7.5 Mg Tablet PO 7.5 mg HS JAYDEN Administration Naloxone HCl 0.1 mg 03/29/25 00:02 Naloxone Hcl 0.4 Mg/Ml Vial IV PUSH Q2M PRN Opiate Reversal Ondansetron HCl 4 mg 03/26/25 14:08 Ondansetron Inj 4 Mg/2 Ml Vial IV PUSH Q6H PRN Nausea And Vomiting Pantoprazole Sodium 40 mg 04/08/25 21:00 04/13/25 08:02 Pantoprazole Sodium Iv 40 Mg Vial IV PUSH 40 mg Q12HR JAYDEN Administration Sertraline HCl 25 mg 04/06/25 18:00 04/13/25 08:04 Sertraline Hcl 25 Mg Tablet PO 25 mg QAM JAYDEN Administration Simethicone 80 mg 04/05/25 17:41 04/12/25 08:12 Simethicone 80 Mg Tab.Chew PO 80 mg QID PRN Administration Gas Discomfort Sodium Chloride 10 ml 03/29/25 09:36 Central Line Flush IV PUSH PRN PRN with TPN bag changes Sodium Chloride 20 ml 03/29/25 09:36 Central Line Flush IV PUSH PRN PRN after blood draws Radiology Results: ITS Impressions Modified Barium Swallow 03/27/25 15:26 IMPRESSION: Oropharyngeal dysphagia with intermittent laryngeal penetration with indeterminate/possible minimal aspiration. Please correlate with speech pathologist findings and specific feeding recommendations. Brain MRI 03/27/25 15:28 IMPRESSION: 1. Normal aging brain with minimal periventricular calcific white matter T2 hyperintensity consistent with chronic small vessel ischemic disease. No acute intracranial process. Cervical Spine MRI 03/28/25 08:39 Impression: Fractured the base of the odontoid process possibly extending from the C2 vertebral body detailed above, most compatible with acute fracture. There is minimal marrow edema and suggestion of possible early cortication along the fracture margins. Alignment appears unchanged as compared to prior CT scans. Anterior fusion of C5 and C6. Moderate to advanced degenerative spondylosis otherwise, as detailed above, with multilevel neural foraminal narrowing. Abdomen X-Ray 04/01/25 10:44 IMPRESSION: 1. Nasogastric tube in the stomach. Chest X-Ray 04/04/25 14:06 IMPRESSION: Inadvertent withdrawal of the previously identified PICC line, which now projects over the right subclavian vein, as detailed above. Venous Doppler Study 04/05/25 11:34 IMPRESSION: 1. Bilateral upper extremity venous thrombosis with deep venous thrombosis of the right subclavian and axillary veins. Head CT 04/10/25 10:35 IMPRESSION: 1. No acute intracranial process. 2. Age-related changes including mild to moderate diffuse volume loss and mild scattered white matter attenuation consistent with chronic small vessel ischemic disease. 3. Chronic left frontal craniotomy. Chest/Abdomen/Pelvis CT 04/10/25 10:37 IMPRESSION: 1. Change of recent partial colectomy with left lower quadrant colostomy. No abscess or bowel obstruction. 2. Mild cardiomegaly. No acute cardiopulmonary disease. 3. Nonobstructing nephrolithiasis. Labs Labs: Laboratory Results - last 24 hr 04/13/25 04:34 WBC 3.3 L RBC 2.72 L Hgb 7.0 L Hct 24.0 L MCV 88.2 MCH 25.7 L MCHC 29.2 L RDW 17.2 H Plt Count 230 MPV 9.6 Immature Gran % (Auto) 0.6 H Neut % (Auto) 49.3 Lymph % (Auto) 43.1 [place] % (Auto) 4.9 Eos % (Auto) 1.8 Baso % (Auto) 0.3 Lymph # (Auto) 1.41 [place] # (Auto) 0.2 Eos # (Auto) 0.1 Baso # (Auto) 0.0 Abs Immat Gran (auto) 0.02 Absolute Neuts (auto) 1.6 Absolute Nucleated RBC 0.000 Band Neutrophils % Not Reportable Nucleated RBC % 0.0 Platelet Estimate Adequate Hypochromasia 2+ Anisocytosis 1+ Microcytosis 1+ Target Cells 1+ Ovalocytes 1+ Schistocytes None seen Sodium 137 Potassium 3.1 L Chloride 108 H Carbon Dioxide 21 L Anion Gap 8 BUN 6 L D Creatinine 0.44 L Estim Creat Clear Calc 88 Estimated GFR > 60 Glucose 99 Calcium 7.9 L Magnesium 1.8 Total Bilirubin 0.2 AST 51 H ALT 49 H Alkaline Phosphatase 185 H Total Protein 6.9 Albumin 2.7 L Quality VTE Prophylaxis VTE prophylaxis: pharmacologic ordered
[2025-04-13] MEDS: MIRTAZAPINE 7.5 MG TABLET PO (20:57)
[2025-04-14] VITALS (10 sets, daily range): BP systolic 125–166; BP diastolic 63–89; PULSE 86–99; RESP 16–20; TEMP 36.3–37.3; O2SAT 98–100
[2025-04-14] MEDS: SODIUM CHLORIDE 0.9% IV 1,000 ML 75 ML IV CONT ×2 (00:57→14:16)
[2025-04-14 04:57] LABS: Basophils Percent Auto 0.3 % (0.2-1.2); Eosinophils Percent Auto 0.3 % (0-4.4); Hematocrit 24.2 % (37.0-47.0); Hemoglobin 7.2 g/dL (12.0-15.0); Immature Granulocyte Absolute 0.01 K/mm3 (0.00-0.031); Immature Granulocyte Percent A 0.3 % (0-0.5); Lymphocytes Absolute Auto 1.45 K/mm3 (0.9-3.2); Lymphocytes Percent Auto 49.2 % (18.3-44.2); Mean Corpuscular HGB Conc 29.8 g/dl (32-36); Mean Corpuscular Hemoglobin 25.9 pg (26-34); Mean Corpuscular Volume 87.1 fl (80-100); Monocytes Absolute Auto 0.2 K/mm3 (0.1-0.6); Monocytes Percent Auto 6.4 % (2.6-8.5); Neutrophils Absolute Auto 1.3 K/mm3 (1.3-6.7); Neutrophils Percent Auto 43.5 % (45.5-73.1); Platelet Count Result 218 k/mm3 (150-375); Red Blood Count 2.78 M/mm3 (4.2-5.4); Red Cell Distribution Width 17.3 % (11.5-14.5)
[2025-04-14 05:38] LABS: Alanine Aminotransferase 48 U/L (6-35); Albumin Level 2.7 g/dL (3.5-5.1); Alkaline Phosphatase 196 U/L (38-126); Anion Gap 5 mmol/L (4-12); Aspartate Amino Transferase 59 U/L (14-36); Bilirubin,Total 0.1 mg/dL (0.2-1.3); Blood Urea Nitrogen 6 mg/dL (7-17); Carbon Dioxide 24 mmol/L (22-30); Chloride 106 mmol/L (98-107); Estimated CRCL calculation 80 ml/min; Estimated Glomerular Filt Rate > 60; Glucose 110 mg/dL (65-110); Magnesium 1.8 mg/dL (1.6-2.3); Potassium 3.5 mmol/L (3.4-5.0); Sodium 135 mmol/L (137-145); Total Protein 6.7 g/dL (6.3-8.2)
[2025-04-14] MEDS: levETIRAcetam 1500MG/NACL100ML 1,500 MG/100 ML BAG 400 MG IVPB ×2 (08:20→20:40)
[2025-04-14] MEDS: PANTOPRAZOLE SODIUM IV 40 MG VIAL IV PUSH ×2 (08:22→20:41)
[2025-04-14] MEDS: SERTRALINE HCL 25 MG TABLET PO (08:22)
[2025-04-14] MEDS: amLODIPine BESYLATE 5 MG TABLET PO (08:22)
[2025-04-14] MEDS: ENOXAPARIN 80 MG/0.8 ML SYRINGE SUB-Q ×2 (08:22→20:40)
[2025-04-14] MEDS: POTASSIUM CHLORIDE 20 MEQ ER TABLET PO (08:28)
--- NOTE | 2025-04-14 08:53 | PCOTNOTE ---
Patient refused to participate in any activity this session. Patient opened her eyes, stated, 'NOPE closed her eyes and would not communicate further with therapist.
[2025-04-14] MEDS: cefTRIAXone 2 GM/NS 100 ML 2 GM/100 ML BAG IVPB (10:18)
--- NOTE | 2025-04-14 12:00 | P.PNIM_ITS ---
Progress Note: A&P Assessment and Plan (1) Acute respiratory failure: Code(s): J96.00 - Acute respiratory failure, unspecified whether with hypoxia or hypercapnia Status: Acute Assessment and Plan: * Acute Respiratory failure secondary to altered mental status and inability to protect airway * Patient was intubated and extubated on 03/30 * Currently on room air * Avoid sedatives * Incentive spirometry patient can do it * Bronchodilators (2) Sepsis: Code(s): A41.9 - Sepsis, unspecified organism Status: Acute Assessment and Plan: * Sepsis secondary to bowel perforation, peritonitis, UTI * Blood and urine cultures have been ordered no growth. * Zosyn completed treatment. * Sepsis resolved. (3) Altered mental status: Code(s): R41.82 - Altered mental status, unspecified Status: Acute Assessment and Plan: * Patient presented with altered mental status. Patient also has history of seizure disorder and may have had seizure and be postictal. Other possibilities are sepsis as she had a perforated bowel and UTI Overnight rapid response could be secondary to deterioration of mental status from Dilaudid. * MRI brain done on 03/27 did not showed any acute CVA and showed 1. Normal aging brain with minimal periventricular calcific white matter T2 hyperintensity consistent with chronic small vessel ischemic disease. No acute intracranial process * EEG as below * Recent TSH was normal, repeat today slightly low at 0.356. * Normal ammonia * Sedation held and now patient is following commands and moving all 4 extremities * Neurology following. * Avoid sedatives and monitor. * 04/10/25 Called by nurse that patient not following commands and may have a left facial droop. Patient not answering but would moan and talk to God asking him to help her. Patient in neck brace leaning left. * CT head IMPRESSION: 1. No acute intracranial process. 2. Age-related changes including mild to moderate diffuse volume loss and mild scattered white matter attenuation consistent with chronic small vessel ischemic disease. 3. Chronic left frontal craniotomy. * CT chest/abd/pelvis: IMPRESSION: 1. Change of recent partial colectomy with left lower quadrant colostomy. No abscess or bowel obstruction. 2. Mild cardiomegaly. No acute cardiopulmonary disease. 3. Nonobstructing nephrolithiasis. * Patient with decreased oral intake. NS@100 ml/hr. * UA: 1+ protein, 1+ ketones, 2+ blood, + nitrate, 2+ leukocytes, RBC 6-10, WBC 11-20, 2+ bacteria, present yeast. * Urine culture negative. * Ceftriaxone 2 gram IVPB daily. * Blood cultures obtained no growth to date. * Lactic acid 0.9. * Vitamin B12 826. * Patient awake and answering questions today, patient eating and drinking small amounts. (4) C2 cervical fracture: Code(s): S12.100A - Unspecified displaced fracture of second cervical vertebra, initial encounter for closed fracture Status: Inactive Assessment and Plan: Patient had a C2 fracture from fall few weeks ago. Patient was evaluated by Neurosurgery. MRI C-spine done on this hospitalization showed following She currently in a soft C-collar. Impression: Fractured the base of the odontoid process possibly extending from the C2 vertebral body detailed above, most compatible with acute fracture. There is minimal marrow edema and suggestion of possible early cortication along the fracture margins. Alignment appears unchanged as compared to prior CT scans. Anterior fusion of C5 and C6. Moderate to advanced degenerative spondylosis otherwise, as detailed above, with multilevel neural foraminal narrowing. Continue C-collar at all times (5) Dysphagia: Qualifiers: Dysphagia type: oropharyngeal phase Qualified Code(s): R13.12 - Dysphagia, oropharyngeal phase Code(s): R13.10 - Dysphagia, unspecified Status: Acute Assessment and Plan: * Patient failed her swallow study prior to surgery. * Speech Therapy following. Started on oral diet and tolerating * follow calorie count (6) UTI (urinary tract infection): Code(s): N39.0 - Urinary tract infection, site not specified Status: Resolved Assessment and Plan: * UA: 1+ protein, 1+ ketones, 2+ blood, + nitrate, 2+ leukocytes, RBC 6-10, WBC 11-20, 2+ bacteria, present yeast. * Urine culture pending. * Ceftriaxone 2 gram IVPB daily. * Post changed. * NS @ 75 ml/hr. (7) Seizure disorder: Code(s): G40.909 - Epilepsy, unspecified, not intractable, without status epilepticus Status: Acute Assessment and Plan: History of seizure disorder. Continue Keppra. Currently sedated with Versed 03/28 EEG. IMPRESSION This is an abnormal EEG due to following 1. Nearly continuous focal slow wave activity intermixed with sharp wave transients were seen over left frontal area. This may relate to having previous surgery in this area. Focal slowing is suggestive of underlying structural lesion. Sharp transients are considered nonspecific focal interictal abnormality. Clinical and radiographic correlation are recommended. 2. Mild his background slowing suggestive of generalized encephalopathy (8) Perforation bowel: Code(s): K63.1 - Perforation of intestine (nontraumatic) Status: Acute Assessment and Plan: 03/28 Status post 1. Exploratory laparotomy 2. Sigmoid colon resection with end descending colostomy 3. Ileal resection with [id number] ileal anastomosis Management per General surgery. Surgery okayed to restart lovenox. Antibiotics as above completed course (9) Anemia: Code(s): D64.9 - Anemia, unspecified Status: Acute Assessment and Plan: 03/30 Hemoglobin 6.2 this morning likely secondary to surgery and hemodilution. No objective evidence of bleeding at this time. Stool is brown Transfuse 1 unit PRBC and repeat hemoglobin. Coags if you Continue DVT prophylaxis Lovenox at this time. Continue PPI Hemoglobin stable at this time monitor. Despite being on DVT prophylaxis now has DVT likely PICC line associated. Picc line discontinued. 6/4 H&H 7.8/26.7. 6/5 H&H 7.7/25.7. 6/6 H&H 7.1/24.1. 6/7 H&H 7.2/25.1. 6/8 H&H 7.0/24.0. 6/9 H&H 7.2/24.2. (10) Superficial vein thrombosis: Code(s): I82.890 - Acute embolism and thrombosis of other specified veins Status: Acute Assessment and Plan: * Venous Doppler shows thrombus in the left cephalic and basilic veins and left upper extremity. * Continue DVT prophylaxis with Lovenox. * Despite being on DVT prophylaxis now has DVT likely PICC line associated. switched to therapeutic Lovenox. * Picc line removed on 04/11/25. (11) DVT (deep venous thrombosis): Code(s): I82.409 - Acute embolism and thrombosis of unspecified deep veins of unspecified lower extremity Status: Acute Assessment and Plan: * Venous Doppler shows thrombus in the left cephalic and basilic veins and left upper extremity. * Continue DVT prophylaxis with Lovenox. * Despite being on DVT prophylaxis now has DVT likely PICC line associated. switched to therapeutic Lovenox. * Picc line removed on 04/11/25. (12) Depression: Code(s): F32.A - Depression, unspecified Status: Acute Assessment and Plan: ongoing. lacks motivation Added zoloft added mirtazapine small dose avoid megace due to dvt (13) GI bleed: Code(s): K92.2 - Gastrointestinal hemorrhage, unspecified Status: Acute Assessment and Plan: * Brown stool in colostomy today. * General surgery and GI following. * H&H however remains stable. (14) Hypokalemia: Code(s): E87.6 - Hypokalemia Status: Acute Assessment and Plan: * Potassium 3.5, improved. * Patient given Potassium Chloride 20 meq PO X 1. * Monitor level. (15) Decreased oral intake: Code(s): R63.8 - Other symptoms and signs concerning food and fluid intake Status: Acute Assessment and Plan: * Increase Mirtazapine 15 mg PO HS. * Avoid Megace due to DVT. * Encourage oral intake. * Calorie count. * Discussed with family peg tube for supplemental feedings, awaiting a response back. Plan patient with c/o abdominal pain had CT scan of the abdomen and pelvic which showed sigmoid diverticulosis with 6.0 x 5.4 x 3.2 cm gas and feculent material containing cavity consistent with a contained bowel perforation which communicates to the sigmoid colon through a 1.8 x 1.3 cm defect in the wall of the colon. patient was seen by surgery service and was taken to the OR on 03/29 and had surgical repair had resection of her intestine and colostomy was placed and the surgery was uneventful, however later in the evening RR was called as patient was unresponsive and was intubated to protect patient airway. on 03/30 patient was extubated and ostomy is functioning now, patient fed via NG tube remain stable off vent in the ICU patient was transferred out of ICU to IMU on 03/31. Patient was seen by speech therapist and swallowing evaluation recommending patient can start puree diet will also continue tube feeding at rios lf the rate to provide sufficient nutrition, however on 04/02 patient pulled out NG tube and refused to put NG tube back, ENT consulted for concern for tonsillar abscess. Disposition plan to go to [facility]/swing bed. Continue PT OT to see DVT prophylaxis - SCD, Lovenox Stress ulcer prophylaxis - PPI Code Status - Full Code Subjective Date/time seen: 04/14/25 12:00 Interval history: Patient sitting up in bed. Denies chest pain, shortness of breath, or nausea. Discussed with patient that she is not taking in enough food and that she may need a peg tube to supplement her oral intake. Patient agreeable to the possibility of getting a feeding tube and okay for my to talk to her daughter April that is her POA. Discussed with daughter April and she was going to speak with family and get back with us. Review of Systems Review of Systems: All systems reviewed & are unremarkable except as noted in HPI and below Exam Const: General: comfortable and no acute distress Resp: Effort & Inspection: normal respiratory effort Auscultation: clear to auscultation bilaterally Cardio: Rate: regular rate Rhythm: regular rhythm Other: Telemetry- SR 96. GI: GI Palp: Yes Soft to palpation Auscultation: normal bowel sounds Extrem: General: no pedal edema Psych: Affect: normal affect Other: Pleasant. Know she is at the hospital and that is 2024. Objective Data Vital Signs Vital Signs: Vital Signs - 24 hr 04/13/25 16:00 04/13/25 18:13 04/13/25 20:00 Temperature 99.1 F 98.9 F Pulse Rate 98 101 H 100 Respiratory Rate 16 18 Blood Pressure 161/72 H 160/82 H Pulse Oximetry 100 100 Oxygen Delivery Fraction of Inspired Oxygen 04/13/25 20:00 04/13/25 20:00 04/14/25 00:00 Temperature Pulse Rate 100 99 99 Respiratory Rate 18 Blood Pressure Pulse Oximetry 100 Oxygen Delivery Room Air Fraction of Inspired Oxygen 04/14/25 00:00 04/14/25 04:00 04/14/25 04:00 Temperature 99.2 F 98.6 F Pulse Rate 94 96 99 Respiratory Rate 18 20 Blood Pressure 147/70 H 166/89 H Pulse Oximetry 99 100 Oxygen Delivery Fraction of Inspired Oxygen 04/14/25 08:17 04/14/25 08:22 04/14/25 08:22 Temperature 98.1 F Pulse Rate 87 87 87 Respiratory Rate 18 18 Blood Pressure 144/80 H Pulse Oximetry 98 98 Oxygen Delivery Room Air Fraction of Inspired Oxygen 04/14/25 10:08 Temperature 97.4 F L Pulse Rate 94 Respiratory Rate 16 Blood Pressure 136/76 Pulse Oximetry 100 Oxygen Delivery Fraction of Inspired Oxygen Intake/Output Intake/Output: Intake & Output 04/11/25 04/12/25 04/13/25 04/14/25 23:59 23:59 23:59 23:59 Intake Total 3153.3 2840 2078.7 1440 Output Total 1100 1875 1900 1490 Balance 2053.3 965 178.7 -50 Meds/Results Medications: Active Medications Generic Name Dose Route Start Last Admin Trade Name Freq PRN Reason Stop Dose Admin Acetaminophen 1,000 mg 04/04/25 14:11 04/12/25 16:37 Acetaminophen 500 Mg Tablet PO 1,000 mg Q6H PRN Administration fever or pain 1-3 Acetaminophen 650 mg 04/10/25 20:57 04/10/25 21:08 Acetaminophen 650 Mg Suppository RECTAL 650 mg Q4H PRN Administration Mild Pain (1-3) or Fever Albuterol/Ipratropium 3 ml 03/30/25 04:29 03/30/25 05:49 Ipratropium 0.5 Mg/Albuterol Sulfate 2.5 Mg Ampul.Neb 3 Ml INHALATION 3 ml Q6HRT PRN Administration Wheezing Amlodipine Besylate 5 mg 04/10/25 09:00 04/14/25 08:22 Amlodipine Besylate 5 Mg Tablet PO 5 mg DAILY JAYDEN Administration Enoxaparin Sodium 80 mg 04/05/25 22:00 04/14/25 08:22 Enoxaparin 80 Mg/0.8 Ml Syringe SUB-Q 80 mg Q12HR JAYDEN Administration Hydromorphone HCl 0.5 mg 04/08/25 13:06 04/11/25 18:33 Hydromorphone Hcl Inj (*Crx) 2 Mg/Ml Vial IV PUSH 0.5 mg Q4H PRN Administration Pain Rated 5-10 if npo Ceftriaxone Sodium 2 gm in 100 mls @ 200 mls/hr 04/10/25 11:00 04/14/25 10:18 Rocephin 2 Gm/Ns 100 Ml IVPB 200 mls/hr Q24H JAYDEN Administration Sodium Chloride 1,000 mls @ 75 mls/hr 04/10/25 21:05 04/14/25 00:57 Normal Saline Iv IV CONT 75 mls/hr .[id number] JAYDEN Administration Levetiracetam 1,500 mg in 100 mls @ 400 mls/hr 04/11/25 09:00 04/14/25 08:35 Keppra Iv IVPB Infused Q12HR JAYDEN Infusion Mirtazapine 7.5 mg 04/06/25 21:00 04/13/25 20:57 Mirtazapine 7.5 Mg Tablet PO 7.5 mg HS JAYDEN Administration Naloxone HCl 0.1 mg 03/29/25 00:02 Naloxone Hcl 0.4 Mg/Ml Vial IV PUSH Q2M PRN Opiate Reversal Ondansetron HCl 4 mg 03/26/25 14:08 Ondansetron Inj 4 Mg/2 Ml Vial IV PUSH Q6H PRN Nausea And Vomiting Pantoprazole Sodium 40 mg 04/08/25 21:00 04/14/25 08:22 Pantoprazole Sodium Iv 40 Mg Vial IV PUSH 40 mg Q12HR JAYDEN Administration Sertraline HCl 25 mg 04/06/25 18:00 04/14/25 08:22 Sertraline Hcl 25 Mg Tablet PO 25 mg QAM JAYDEN Administration Simethicone 80 mg 04/05/25 17:41 04/12/25 08:12 Simethicone 80 Mg Tab.Chew PO 80 mg QID PRN Administration Gas Discomfort Sodium Chloride 10 ml 03/29/25 09:36 Central Line Flush IV PUSH PRN PRN with TPN bag changes Sodium Chloride 20 ml 03/29/25 09:36 Central Line Flush IV PUSH PRN PRN after blood draws Radiology Results: ITS Impressions Modified Barium Swallow 03/27/25 15:26 IMPRESSION: Oropharyngeal dysphagia with intermittent laryngeal penetration with indeterminate/possible minimal aspiration. Please correlate with speech pathologist findings and specific feeding recommendations. Brain MRI 03/27/25 15:28 IMPRESSION: 1. Normal aging brain with minimal periventricular calcific white matter T2 hyperintensity consistent with chronic small vessel ischemic disease. No acute intracranial process. Cervical Spine MRI 03/28/25 08:39 Impression: Fractured the base of the odontoid process possibly extending from the C2 vertebral body detailed above, most compatible with acute fracture. There is minimal marrow edema and suggestion of possible early cortication along the fr acture margins. Alignment appears unchanged as compared to prior CT scans. Anterior fusion of C5 and C6. Moderate to advanced degenerative spondylosis otherwise, as detailed above, with multilevel neural foraminal narrowing. Abdomen X-Ray 04/01/25 10:44 IMPRESSION: 1. Nasogastric tube in the stomach. Chest X-Ray 04/04/25 14:06 IMPRESSION: Inadvertent withdrawal of the previously identified PICC line, which now pro jects over the right subclavian vein, as detailed above. Venous Doppler Study 04/05/25 11:34 IMPRESSION: 1. Bilateral upper extremity venous thrombosis with deep venous thrombosis of the right subclavian and axillary veins. Head CT 04/10/25 10:35 IMPRESSION: 1. No acute intracranial process. 2. Age-related changes including mild to moderate diffuse volume loss and mild scattered white matter attenuation consistent with chronic small vessel ischemic disease. 3. Chronic left frontal craniotomy. Chest/Abdomen/Pelvis CT 04/10/25 10:37 IMPRESSION: 1. Change of recent partial colectomy with left lower quadrant colostomy. No abscess or bowel obstruction. 2. Mild cardiomegaly. No acute cardiopulmonary disease. 3. Nonobstructing nephrolithiasis. Labs Labs: Laboratory Results - last 24 hr 04/14/25 04:28 WBC 3.0 L RBC 2.78 L Hgb 7.2 L Hct 24.2 L MCV 87.1 MCH 25.9 L MCHC 29.8 L RDW 17.3 H Plt Count 218 MPV 10.0 Immature Gran % (Auto) 0.3 Neut % (Auto) 43.5 L Lymph % (Auto) 49.2 H [place] % (Auto) 6.4 Eos % (Auto) 0.3 Baso % (Auto) 0.3 Lymph # (Auto) 1.45 [place] # (Auto) 0.2 Eos # (Auto) 0.0 Baso # (Auto) 0.0 Abs Immat Gran (auto) 0.01 Absolute Neuts (auto) 1.3 Absolute Nucleated RBC 0.000 Nucleated RBC % 0.0 Sodium 135 L Potassium 3.5 Chloride 106 Carbon Dioxide 24 Anion Gap 5 BUN 6 L Creatinine 0.49 L Estim Creat Clear Calc 80 Estimated GFR > 60 Glucose 110 Calcium 8.0 L Magnesium 1.8 Total Bilirubin 0.1 L AST 59 H ALT 48 H Alkaline Phosphatase 196 H Total Protein 6.7 Albumin 2.7 L Quality VTE Prophylaxis VTE prophylaxis: pharmacologic ordered
--- NOTE | 2025-04-14 12:06 | PCNFU ---
Nutrition Follow-Up Complete: Inadequate energy intake related to altered GI function, mechanical ventilation as evidenced by NPO Goal: Meet estimated nutrition needs when medically able Patient is not meeting goal. Pt current nutrition is Minced and Moist, Level 5 with Ensure Enlive TID. Last recorded weight is 77.1 kg, up from 72.5 kg on admit. Bowel Motility: +BM reported 04/14 Labs Reviewed:Cr 0.49,, BUN 6, Na 135, Alb 2.7 Meds Noted: NS, Remeron, Protonix, Keppra Skin: WNL Additional Notes: Patient on recent calorie count, reported no more than 25% of meals. She has been drinking Ensure Enlive which is providing an additional 350 kcal and 20 gm protein. Spoke with nursing today regarding intake and patient would not eat on 04/13 or take diet supplement. Spoke with hospitalist today regarding nutritional recommendations and at this time patient will not sustain enough calorie needs on oral intake alone. Recommend discussions with POA regarding PEG for nutrition. Monitoring orders, plan of care, weights, labs, output.Follow up in 3 days
--- NOTE | 2025-04-14 13:35 | PCOTNOTE ---
Attempted again to see Patient this afternoon. Patient verbalized, NO, Pain, stomach, with additional time and difficulty. RN notified and stated will address..
[2025-04-14] MEDS: ACETAMINOPHEN 500 MG TABLET 1000 MG PO ×2 (14:08→20:41)
[2025-04-14] MEDS: MIRTAZAPINE 15 MG TABLET PO (20:41)
[2025-04-15] VITALS (7 sets, daily range): BP systolic 143–154; BP diastolic 65–84; PULSE 81–99; RESP 16–20; TEMP 36.6–38.1; O2SAT 99–100
[2025-04-15] MEDS: SIMETHICONE 80 MG TAB.CHEW PO ×2 (02:43→09:13)
[2025-04-15] MEDS: ACETAMINOPHEN 500 MG TABLET 1000 MG PO ×2 (02:44→09:11)
[2025-04-15] MEDS: SODIUM CHLORIDE 0.9% IV 1,000 ML 75 ML IV CONT ×2 (04:12→14:19)
[2025-04-15 05:24] LABS: Basophils Percent Auto 0.5 % (0.2-1.2); Eosinophils Percent Auto 1.4 % (0-4.4); Hematocrit 25.2 % (37.0-47.0); Hemoglobin 7.5 g/dL (12.0-15.0); Immature Granulocyte Absolute 0.02 K/mm3 (0.00-0.031); Immature Granulocyte Percent A 0.9 % (0-0.5); Lymphocytes Absolute Auto 0.78 K/mm3 (0.9-3.2); Lymphocytes Percent Auto 36.6 % (18.3-44.2); Mean Corpuscular HGB Conc 29.8 g/dl (32-36); Mean Corpuscular Volume 87.5 fl (80-100); Mean Platelet Volume 9.9 fl (7.4-10.4); Monocytes Absolute Auto 0.1 K/mm3 (0.1-0.6); Monocytes Percent Auto 5.2 % (2.6-8.5); Neutrophils Absolute Auto 1.2 K/mm3 (1.3-6.7); Neutrophils Percent Auto 55.4 % (45.5-73.1); Platelet Count Result 191 k/mm3 (150-375); Red Blood Count 2.88 M/mm3 (4.2-5.4); Red Cell Distribution Width 17.4 % (11.5-14.5); White Blood Count 2.1 K/mm3 (4.5-10.0)
[2025-04-15 05:32] LABS: Alanine Aminotransferase 53 U/L (6-35); Albumin Level 2.8 g/dL (3.5-5.1); Alkaline Phosphatase 217 U/L (38-126); Anion Gap 4 mmol/L (4-12); Aspartate Amino Transferase 61 U/L (14-36); Bilirubin,Total 0.1 mg/dL (0.2-1.3); Blood Urea Nitrogen 7 mg/dL (7-17); Calcium 8.2 mg/dL (8.4-10.2); Carbon Dioxide 23 mmol/L (22-30); Chloride 110 mmol/L (98-107); Estimated CRCL calculation 82 ml/min; Estimated Glomerular Filt Rate > 60; Glucose 112 mg/dL (65-110); Magnesium 1.9 mg/dL (1.6-2.3); Potassium 3.4 mmol/L (3.4-5.0); Sodium 137 mmol/L (137-145)
[2025-04-15 05:45] LABS: Anisocytosis 1+; Hypochromasia 1+; Ovalocytes 1+; Platelet Estimate Adequate (Adequate); Schistocytes None Seen
[2025-04-15] MEDS: SERTRALINE HCL 25 MG TABLET PO (09:13)
[2025-04-15] MEDS: amLODIPine BESYLATE 5 MG TABLET PO (09:13)
[2025-04-15] MEDS: ENOXAPARIN 80 MG/0.8 ML SYRINGE SUB-Q ×2 (09:14→21:19)
[2025-04-15] MEDS: PANTOPRAZOLE SODIUM IV 40 MG VIAL IV PUSH ×2 (09:15→21:19)
[2025-04-15] MEDS: POTASSIUM CHLORIDE 20 MEQ ER TABLET PO (09:15)
[2025-04-15] MEDS: levETIRAcetam 1500MG/NACL100ML 1,500 MG/100 ML BAG 400 MG IVPB ×2 (09:19→21:18)
[2025-04-15] MEDS: cefTRIAXone 2 GM/NS 100 ML 2 GM/100 ML BAG IVPB (10:56)
[2025-04-15] MEDS: HYDROmorphone HCL INJ (*CRX) 2 MG/ML VIAL 0.5 MG IV PUSH ×2 (10:59→21:29)
--- NOTE | 2025-04-15 11:29 | PM.IMHP ---
H&P: HPI History of Present Illness Date/Time: 04/15/25 11:29 Review of Systems Review of Systems: All systems reviewed & are unremarkable except as noted in HPI and below PMFSH Past Medical History Medical History (Updated 04/14/25 @ 15:21 by Chayito Antonio APRN) C2 cervical fracture CAD (coronary artery disease) Coarse tremors Subdural hemorrhage Subarachnoid hemorrhage Migraine Hypertension Family History Family History Mother Hypertension Spinal cord cancer Sibling Colon cancer Hypertension Other Breast cancer Social History Social History Smoking packs per day: 0.5 Smoking cigarettes per day: 10.0 Years smoked: 20 Smoking pack-years: 10.00 Smoking status: Former smoker Tobacco type: cigarettes Second hand tobacco smoke exposure: No Alcohol intake: never Substance use: never Spiritual care concerns: No Meds Home Medications and Allergies Home Medications ?Medication ?Instructions ?Recorded ?Confirmed ?Type amlodipine 10 mg tablet 10 mg PO DAILY 03/10/25 03/26/25 History aspirin 81 mg chewable tablet 81 mg PO DAILY 03/10/25 03/26/25 History docusate sodium 100 mg capsule 100 mg PO BID 03/10/25 03/26/25 History levetiracetam 250 mg tablet 1,500 mg PO DAILY 03/10/25 03/26/25 History (Keppra) oxycodone 5 mg tablet 5 mg PO Q6H PRN pain 03/10/25 03/26/25 History polyethylene glycol 3350 17 17 g PO DAILY 03/10/25 03/26/25 History gram/dose oral powder (ClearLax) potassium chloride 10 mEq 10 meq PO DAILY 03/10/25 03/26/25 History capsule,extended release prasugrel HCl 10 mg tablet 10 mg PO DAILY 03/10/25 03/26/25 History (Effient) primidone 250 mg tablet 250 mg PO QID 03/10/25 03/26/25 History topiramate 25 mg tablet (Topamax) 25 mg PO HS 03/10/25 03/26/25 History acetaminophen 500 mg capsule 1,000 mg PO Q6H PRN fever or pain 03/25/25 03/26/25 History Allergies Allergy/AdvReac Type Severity Reaction Status Date / Time morphine Allergy Unknown Unknown Verified 03/25/25 12:49 Vital Signs Vital Signs - 24 hr 04/14/25 12:10 04/14/25 13:29 04/14/25 16:00 Temperature 98.9 F Pulse Rate 96 98 93 Respiratory Rate 18 Blood Pressure 138/77 Pulse Oximetry 100 Oxygen Delivery Fraction of Inspired Oxygen 04/14/25 20:00 04/14/25 20:00 04/14/25 20:00 Temperature 98.1 F Pulse Rate 86 86 88 Respiratory Rate 16 16 Blood Pressure 125/63 Pulse Oximetry 100 100 Oxygen Delivery Room Air Fraction of Inspired Oxygen 21 04/14/25 23:34 04/15/25 00:00 04/15/25 03:40 Temperature 97.8 F 97.8 F Pulse Rate 86 85 88 Respiratory Rate 17 16 Blood Pressure 151/80 H 143/73 H Pulse Oximetry 100 100 Oxygen Delivery Fraction of Inspired Oxygen 04/15/25 04:00 04/15/25 08:00 Temperature Pulse Rate 99 93 Respiratory Rate 16 Blood Pressure 145/65 H Pulse Oximetry 100 Oxygen Delivery Fraction of Inspired Oxygen H&P: Results Labs Labs: Short CBC 04/15/25 Range/Units 04:44 WBC 2.1 L (4.5-10.0) K/mm3 Hgb 7.5 L (12.0-15.0) g/dL Hct 25.2 L (37.0-47.0) % Plt Count 191 (150-375) k/mm3 BMP 04/15/25 04:44 Sodium 137 Potassium 3.4 Chloride 110 H Carbon Dioxide 23 BUN 7 Creatinine 0.48 L Glucose 112 H Calcium 8.2 L Liver Function 04/15/25 Range/Units 04:44 Total Bilirubin 0.1 L (0.2-1.3) mg/dL AST 61 H (14-36) U/L ALT 53 H (6-35) U/L Alkaline Phosphatase 217 H (38-126) U/L Albumin 2.8 L (3.5-5.1) g/dL
--- NOTE | 2025-04-15 11:57 | P.PNIM_ITS ---
Progress Note: A&P Assessment and Plan (1) Acute respiratory failure: Code(s): J96.00 - Acute respiratory failure, unspecified whether with hypoxia or hypercapnia Status: Acute Assessment and Plan: * Acute Respiratory failure secondary to altered mental status and inability to protect airway * Patient was intubated and extubated on 03/30 * Currently on room air * Avoid sedatives * Incentive spirometry patient can do it * Bronchodilators (2) Sepsis: Code(s): A41.9 - Sepsis, unspecified organism Status: Acute Assessment and Plan: * Sepsis secondary to bowel perforation, peritonitis, UTI * Blood and urine cultures have been ordered no growth. * Zosyn completed treatment. * Sepsis resolved. (3) Altered mental status: Code(s): R41.82 - Altered mental status, unspecified Status: Acute Assessment and Plan: * Patient presented with altered mental status. Patient also has history of seizure disorder and may have had seizure and be postictal. Other possibilities are sepsis as she had a perforated bowel and UTI Overnight rapid response could be secondary to deterioration of mental status from Dilaudid. * MRI brain done on 03/27 did not showed any acute CVA and showed 1. Normal aging brain with minimal periventricular calcific white matter T2 hyperintensity consistent with chronic small vessel ischemic disease. No acute intracranial process * EEG as below * Recent TSH was normal, repeat today slightly low at 0.356. * Normal ammonia * Sedation held and now patient is following commands and moving all 4 extremities * Neurology following. * Avoid sedatives and monitor. * 04/10/25 Called by nurse that patient not following commands and may have a left facial droop. Patient not answering but would moan and talk to God asking him to help her. Patient in neck brace leaning left. * CT head IMPRESSION: 1. No acute intracranial process. 2. Age-related changes including mild to moderate diffuse volume loss and mild scattered white matter attenuation consistent with chronic small vessel ischemic disease. 3. Chronic left frontal craniotomy. * CT chest/abd/pelvis: IMPRESSION: 1. Change of recent partial colectomy with left lower quadrant colostomy. No abscess or bowel obstruction. 2. Mild cardiomegaly. No acute cardiopulmonary disease. 3. Nonobstructing nephrolithiasis. * Patient with decreased oral intake. NS@100 ml/hr. * UA: 1+ protein, 1+ ketones, 2+ blood, + nitrate, 2+ leukocytes, RBC 6-10, WBC 11-20, 2+ bacteria, present yeast. * Urine culture negative. * Ceftriaxone 2 gram IVPB daily. * Blood cultures obtained no growth to date. * Lactic acid 0.9. * Vitamin B12 826. * Patient awake and answering questions today, patient eating and drinking small amounts. (4) C2 cervical fracture: Code(s): S12.100A - Unspecified displaced fracture of second cervical vertebra, initial encounter for closed fracture Status: Inactive Assessment and Plan: Patient had a C2 fracture from fall few weeks ago. Patient was evaluated by Neurosurgery. MRI C-spine done on this hospitalization showed following She currently in a soft C-collar. Impression: Fractured the base of the odontoid process possibly extending from the C2 vertebral body detailed above, most compatible with acute fracture. There is minimal marrow edema and suggestion of possible early cortication along the fracture margins. Alignment appears unchanged as compared to prior CT scans. Anterior fusion of C5 and C6. Moderate to advanced degenerative spondylosis otherwise, as detailed above, with multilevel neural foraminal narrowing. Continue C-collar at all times (5) Dysphagia: Qualifiers: Dysphagia type: oropharyngeal phase Qualified Code(s): R13.12 - Dysphagia, oropharyngeal phase Code(s): R13.10 - Dysphagia, unspecified Status: Acute Assessment and Plan: * Patient failed her swallow study prior to surgery. * Speech Therapy following. Started on oral diet and tolerating * follow calorie count (6) UTI (urinary tract infection): Code(s): N39.0 - Urinary tract infection, site not specified Status: Resolved Assessment and Plan: * UA: 1+ protein, 1+ ketones, 2+ blood, + nitrate, 2+ leukocytes, RBC 6-10, WBC 11-20, 2+ bacteria, present yeast. * Urine culture negative. * Ceftriaxone 2 gram IVPB daily, completed. * Post changed. * NS @ 75 ml/hr. (7) Seizure disorder: Code(s): G40.909 - Epilepsy, unspecified, not intractable, without status epilepticus Status: Acute Assessment and Plan: History of seizure disorder. Continue Keppra. Currently sedated with Versed 03/28 EEG. IMPRESSION This is an abnormal EEG due to following 1. Nearly continuous focal slow wave activity intermixed with sharp wave transients were seen over left frontal area. This may relate to having previous surgery in this area. Focal slowing is suggestive of underlying structural lesion. Sharp transients are considered nonspecific focal interictal abnormality. Clinical and radiographic correlation are recommended. 2. Mild his background slowing suggestive of generalized encephalopathy (8) Perforation bowel: Code(s): K63.1 - Perforation of intestine (nontraumatic) Status: Acute Assessment and Plan: 03/28 Status post 1. Exploratory laparotomy 2. Sigmoid colon resection with end descending colostomy 3. Ileal resection with [id number] ileal anastomosis Management per General surgery. Surgery okayed to restart lovenox. Antibiotics as above completed course (9) Anemia: Code(s): D64.9 - Anemia, unspecified Status: Acute Assessment and Plan: 03/30 Hemoglobin 6.2 this morning likely secondary to surgery and hemodilution. No objective evidence of bleeding at this time. Stool is brown Transfuse 1 unit PRBC and repeat hemoglobin. Coags if you Continue DVT prophylaxis Lovenox at this time. Continue PPI Hemoglobin stable at this time monitor. Despite being on DVT prophylaxis now has DVT likely PICC line associated. Picc line discontinued. 6/4 H&H 7.8/26.7. 6/5 H&H 7.7/25.7. 6/6 H&H 7.1/24.1. 6/7 H&H 7.2/25.1. 6/8 H&H 7.0/24.0. 6/9 H&H 7.2/24.2. 6/10 H&H 7.5/25.2. (10) Superficial vein thrombosis: Code(s): I82.890 - Acute embolism and thrombosis of other specified veins Status: Acute Assessment and Plan: * Venous Doppler shows thrombus in the left cephalic and basilic veins and left upper extremity. * Continue DVT prophylaxis with Lovenox. * Despite being on DVT prophylaxis now has DVT likely PICC line associated. switched to therapeutic Lovenox. * Picc line removed on 04/11/25. (11) DVT (deep venous thrombosis): Code(s): I82.409 - Acute embolism and thrombosis of unspecified deep veins of unspecified lower extremity Status: Acute Assessment and Plan: * Venous Doppler shows thrombus in the left cephalic and basilic veins and left upper extremity. * Continue DVT prophylaxis with Lovenox. * Despite being on DVT prophylaxis now has DVT likely PICC line associated. switched to therapeutic Lovenox. * Picc line removed on 04/11/25. (12) Depression: Code(s): F32.A - Depression, unspecified Status: Acute Assessment and Plan: ongoing. lacks motivation Added zoloft added mirtazapine small dose avoid megace due to dvt (13) GI bleed: Code(s): K92.2 - Gastrointestinal hemorrhage, unspecified Status: Acute Assessment and Plan: * Brown stool in colostomy today. * General surgery and GI following. * H&H however remains stable. (14) Hypokalemia: Code(s): E87.6 - Hypokalemia Status: Acute Assessment and Plan: * Potassium 3.4, improved. * Patient given Potassium Chloride 20 meq PO X 1. * Monitor level. (15) Decreased oral intake: Code(s): R63.8 - Other symptoms and signs concerning food and fluid intake Status: Acute Assessment and Plan: * Increase Mirtazapine 15 mg PO HS. * Avoid Megace due to DVT. * Encourage oral intake. * Calorie count. * Discussed with family peg tube for supplemental feedings, daughter would like them to speak further with GI about the peg tube. Plan patient with c/o abdominal pain had CT scan of the abdomen and pelvic which showed sigmoid diverticulosis with 6.0 x 5.4 x 3.2 cm gas and feculent material containing cavity consistent with a contained bowel perforation which communicates to the sigmoid colon through a 1.8 x 1.3 cm defect in the wall of the colon. patient was seen by surgery service and was taken to the OR on 03/29 and had surgical repair had resection of her intestine and colostomy was placed and the surgery was uneventful, however later in the evening RR was called as patient was unresponsive and was intubated to protect patient airway. on 03/30 patient was extubated and ostomy is functioning now, patient fed via NG tube remain stable off vent in the ICU patient was transferred out of ICU to IMU on 03/31. Patient was seen by speech therapist and swallowing evaluation recom mending patient can start puree diet will also continue tube feeding at half the rate to provide sufficient nutrition, however on 04/02 patient pulled out NG tube and refused to put NG tube back, ENT consulted for concern for tonsillar abscess. Disposition plan to go to [facility]/swing bed. Continue PT OT to see DVT prophylaxis - SCD, Lovenox Stress ulcer prophylaxis - PPI Code Status - Full Code Subjective Date/time seen: 04/15/25 11:57 Interval history: Patient lying in bed with daughter at bedside. Discussed with patient and daughter that patient is not eating enough food. Discussed a peg tube to supplement patients oral intake. Patient wanting to further discuss with family. Daughter would like for them to take GI and further discuss the peg tube. Patient denies nausea, pain, or shortness of breath. Review of Systems Review of Systems: All systems reviewed & are unremarkable except as noted in HPI and below Exam 2 Const: General: comfortable and no acute distress Resp: Effort & Inspection: normal respiratory effort Auscultation: clear to auscultation bilaterally Cardio: Rate: regular rate Rhythm: regular rhythm Other: Telemetry- SR 92. GI: GI Palp: Yes Soft to palpation Auscultation: normal bowel sounds Neuro: Speech: normal speech Extrem: General: no pedal edema Psych: Mental Status: mental status grossly normal Affect: normal affect Objective Data Vital Signs Vital Signs: Vital Signs - 24 hr 04/14/25 12:10 04/14/25 13:29 04/14/25 16:00 Temperature 98.9 F Pulse Rate 96 98 93 Respiratory Rate 18 Blood Pressure 138/77 Pulse Oximetry 100 Oxygen Delivery Fraction of Inspired Oxygen 04/14/25 20:00 04/14/25 20:00 04/14/25 20:00 Temperature 98.1 F Pulse Rate 86 86 88 Respiratory Rate 16 16 Blood Pressure 125/63 Pulse Oximetry 100 100 Oxygen Delivery Room Air Fraction of Inspired Oxygen 21 04/14/25 23:34 04/15/25 00:00 04/15/25 03:40 Temperature 97.8 F 97.8 F Pulse Rate 86 85 88 Respiratory Rate 17 16 Blood Pressure 151/80 H 143/73 H Pulse Oximetry 100 100 Oxygen Delivery Fraction of Inspired Oxygen 04/15/25 04:00 04/15/25 08:00 Temperature Pulse Rate 99 93 Respiratory Rate 16 Blood Pressure 145/65 H Pulse Oximetry 100 Oxygen Delivery Fraction of Inspired Oxygen Intake/Output Intake/Output: Intake & Output 06/07/25 06/08/25 06/09/25 06/10/25 23:59 23:59 23:59 23:59 Intake Total 2840 2078.7 3198.8 1457 Output Total 1875 1900 2190 1400 Balance 965 178.7 1008.8 57 Meds/Results Medications: Active Medications Generic Name Dose Route Start Last Admin Trade Name Freq PRN Reason Stop Dose Admin Acetaminophen 1,000 mg 04/04/25 14:11 04/15/25 09:11 Acetaminophen 500 Mg Tablet PO 1,000 mg Q6H PRN Administration fever or pain 1-3 Acetaminophen 650 mg 04/10/25 20:57 04/10/25 21:08 Acetaminophen 650 Mg Suppository RECTAL 650 mg Q4H PRN Administration Mild Pain (1-3) or Fever Albuterol/Ipratropium 3 ml 03/30/25 04:29 03/30/25 05:49 Ipratropium 0.5 Mg/Albuterol Sulfate 2.5 Mg Ampul.Neb 3 Ml INHALATION 3 ml Q6HRT PRN Administration Wheezing Amlodipine Besylate 5 mg 04/10/25 09:00 04/15/25 09:13 Amlodipine Besylate 5 Mg Tablet PO 5 mg DAILY JAYDEN Administration Enoxaparin Sodium 80 mg 04/05/25 22:00 04/15/25 09:14 Enoxaparin 80 Mg/0.8 Ml Syringe SUB-Q 80 mg Q12HR JAYDEN Administration Hydromorphone HCl 0.5 mg 04/08/25 13:06 04/15/25 10:59 Hydromorphone Hcl Inj (*Crx) 2 Mg/Ml Vial IV PUSH 0.5 mg Q4H PRN Administration Pain Rated 5-10 if npo Sodium Chloride 1,000 mls @ 75 mls/hr 04/10/25 21:05 04/15/25 04:12 Normal Saline Iv IV CONT 75 mls/hr .[id number] JAYDEN Administration Levetiracetam 1,500 mg in 100 mls @ 400 mls/hr 04/11/25 09:00 04/15/25 09:19 Keppra Iv IVPB 400 mls/hr Q12HR JAYDEN Administration Mirtazapine 15 mg 04/14/25 21:00 04/14/25 20:41 Mirtazapine 15 Mg Tablet PO 15 mg HS JAYDEN Administration Naloxone HCl 0.1 mg 03/29/25 00:02 Naloxone Hcl 0.4 Mg/Ml Vial IV PUSH Q2M PRN Opiate Reversal Ondansetron HCl 4 mg 03/26/25 14:08 Ondansetron Inj 4 Mg/2 Ml Vial IV PUSH Q6H PRN Nausea And Vomiting Pantoprazole Sodium 40 mg 04/08/25 21:00 04/15/25 09:15 Pantoprazole Sodium Iv 40 Mg Vial IV PUSH 40 mg Q12HR JAYDEN Administration Sertraline HCl 25 mg 04/06/25 18:00 04/15/25 09:13 Sertraline Hcl 25 Mg Tablet PO 25 mg QAM JAYDEN Administration Simethicone 80 mg 04/05/25 17:41 04/15/25 09:13 Simethicone 80 Mg Tab.Chew PO 80 mg QID PRN Administration Gas Discomfort Sodium Chloride 10 ml 03/29/25 09:36 Central Line Flush IV PUSH PRN PRN with TPN bag changes Sodium Chloride 20 ml 03/29/25 09:36 Central Line Flush IV PUSH PRN PRN after blood draws Radiology Results: ITS Impressions Modified Barium Swallow 03/27/25 15:26 IMPRESSION: Oropharyngeal dysphagia with intermittent laryngeal penetration with indeterminate/possible minimal aspiration. Please correlate with speech pathologist findings and specific feeding recommendations. Brain MRI 03/27/25 15:28 IMPRESSION: 1. Normal aging brain with minimal periventricular calcific white matter T2 hy perintensity consistent with chronic small vessel ischemic disease. No acute intracranial process. Cervical Spine MRI 03/28/25 08:39 Impression: Fractured the base of the odontoid process possibly extending from the C2 vertebral body detailed above, most compatible with acute fracture. There is minimal marrow edema and suggestion of possible early cortication along the fracture margins. Alignment appears unchanged as compared to prior CT scans. Anterior fusion of C5 and C6. Moderate to advanced degenerative spondylosis otherwise, as detailed above, with multilevel neural foraminal narrowing. Abdomen X-Ray 04/01/25 10:44 IMPRESSION: 1. Nasogastric tube in the stomach. Chest X-Ray 04/04/25 14:06 IMPRESSION: Inadvertent withdrawal of the previously identified PICC line, which now projects over the right subclavian vein, as detailed above. Venous Doppler Study 04/05/25 11:34 IMPRESSION: 1. Bilateral upper extremity venous thrombosis with deep venous thrombosis of the right subclavian and axillary veins. Head CT 04/10/25 10:35 IMPRESSION: 1. No acute intracranial process. 2. Age-related changes including mild to moderate diffuse volume loss and mild scattered white matter attenuation consistent with chronic small vessel ischemic disease. 3. Chronic left frontal craniotomy. Chest/Abdomen/Pelvis CT 04/10/25 10:37 IMPRESSION: 1. Change of recent partial colectomy with left lower quadrant colostomy. No abscess or bowel obstruction. 2. Mild cardiomegaly. No acute cardiopulmonary disease. 3. Nonobstructing nephrolithiasis. Labs Labs: Laboratory Results - last 24 hr 04/15/25 04:44 WBC 2.1 L RBC 2.88 L Hgb 7.5 L Hct 25.2 L MCV 87.5 MCH 26.0 MCHC 29.8 L RDW 17.4 H Plt Count 191 MPV 9.9 Immature Gran % (Auto) 0.9 H Neut % (Auto) 55.4 Lymph % (Auto) 36.6 [place] % (Auto) 5.2 Eos % (Auto) 1.4 Baso % (Auto) 0.5 Lymph # (Auto) 0.78 L [place] # (Auto) 0.1 Eos # (Auto) 0.0 Baso # (Auto) 0.0 Abs Immat Gran (auto) 0.02 Absolute Neuts (auto) 1.2 L Absolute Nucleated RBC 0.000 Band Neutrophils % Not Reportable Nucleated RBC % 0.0 Platelet Estimate Adequate Hypochromasia 1+ Anisocytosis 1+ Ovalocytes 1+ Schistocytes None seen Sodium 137 Potassium 3.4 Chloride 110 H Carbon Dioxide 23 Anion Gap 4 BUN 7 Creatinine 0.48 L Estim Creat Clear Calc 82 Estimated GFR > 60 Glucose 112 H Calcium 8.2 L Magnesium 1.9 Total Bilirubin 0.1 L AST 61 H ALT 53 H Alkaline Phosphatase 217 H Total Protein 7.0 Albumin 2.8 L Quality VTE Prophylaxis VTE prophylaxis: pharmacologic ordered
--- NOTE | 2025-04-15 13:16 | PCPTNOTE ---
Attempted to see patient for PT, however patient refused. Patient reported she has had a lot of family in today and wanted to rest. Attempted to encourage patient for participation, patient continued to refuse.
--- NOTE | 2025-04-15 17:14 | P.CONGI_ITS ---
Assessment and Plan Assessment and plan (1) Dysphagia: Qualifiers: Dysphagia type: oropharyngeal phase Qualified Code(s): R13.12 - Dysphagia, oropharyngeal phase Code(s): R13.10 - Dysphagia, unspecified Status: Acute Assessment and Plan: The patient has poor appetite and limitation to eat due to oropharyngeal dysphagia. She is deemed a good candidate for PEG placement, however there is no family consensus as of yet to schedule her. Will wait tomorrow for this and if there is complete agreement, will proceed with scheduling. GI Consult Note Consult date/time: 04/15/25 17:14 Reason for consult: gastrostomy tube placement HPI: Deedee Duran is a 75 year old female was admitted with altered mental status, underlying diagnosis of seizure disorder, cervical 2 vertebral fracture. She was admitted for spontaneous bowel perforation and had a sigmoid resection and end-colostomy with ileal resection and [id number] ileal anastomosis on 03/28/2025. The patient has oropharyngeal dysphagia according to a recent swallow study and we are requested to perform a PEG placement. Review of Systems 2 Review of Systems: All systems reviewed & are unremarkable except as noted in HPI and below PMFSH Past Medical History Medical History (Updated 04/14/25 @ 15:21 by Chayito Antonio, PRITI) C2 cervical fracture CAD (coronary artery disease) Coarse tremors Subdural hemorrhage Subarachnoid hemorrhage Migraine Hypertension Family History Family History Mother Hypertension Spinal cord cancer Sibling Colon cancer Hypertension Other Breast cancer Social History Social History Smoking packs per day: 0.5 Smoking cigarettes per day: 10.0 Years smoked: 20 Smoking pack-years: 10.00 Smoking status: Former smoker Tobacco type: cigarettes Second hand tobacco smoke exposure: No Alcohol intake: never Substance use: never Spiritual care concerns: No Meds Home Medications and Allergies Home Medications ?Medication ?Instructions ?Recorded ?Confirmed ?Type amlodipine 10 mg tablet 10 mg PO DAILY 03/10/25 03/26/25 History aspirin 81 mg chewable tablet 81 mg PO DAILY 03/10/25 03/26/25 History docusate sodium 100 mg capsule 100 mg PO BID 03/10/25 03/26/25 History levetiracetam 250 mg tablet 1,500 mg PO DAILY 03/10/25 03/26/25 History (Keppra) oxycodone 5 mg tablet 5 mg PO Q6H PRN pain 03/10/25 03/26/25 History polyethylene glycol 3350 17 17 g PO DAILY 03/10/25 03/26/25 History gram/dose oral powder (ClearLax) potassium chloride 10 mEq 10 meq PO DAILY 03/10/25 03/26/25 History capsule,extended release prasugrel HCl 10 mg tablet 10 mg PO DAILY 03/10/25 03/26/25 History (Effient) primidone 250 mg tablet 250 mg PO QID 03/10/25 03/26/25 History topiramate 25 mg tablet (Topamax) 25 mg PO HS 03/10/25 03/26/25 History acetaminophen 500 mg capsule 1,000 mg PO Q6H PRN fever or pain 03/25/25 03/26/25 History Allergies Allergy/AdvReac Type Severity Reaction Status Date / Time morphine Allergy Unknown Unknown Verified 03/25/25 12:49 Vital Signs Vital Signs - 24 hr 04/14/25 20:00 04/14/25 20:00 04/14/25 20:00 Temperature 98.1 F Pulse Rate 86 86 88 Respiratory Rate 16 16 Blood Pressure 125/63 Pulse Oximetry 100 100 Oxygen Delivery Room Air Fraction of Inspired Oxygen 21 04/14/25 23:34 04/15/25 00:00 04/15/25 03:40 Temperature 97.8 F 97.8 F Pulse Rate 86 85 88 Respiratory Rate 17 16 Blood Pressure 151/80 H 143/73 H Pulse Oximetry 100 100 Oxygen Delivery Fraction of Inspired Oxygen 04/15/25 04:00 04/15/25 08:00 04/15/25 08:00 Temperature Pulse Rate 99 93 91 Respiratory Rate 16 Blood Pressure 145/65 H Pulse Oximetry 100 Oxygen Delivery Fraction of Inspired Oxygen 04/15/25 08:00 04/15/25 12:00 04/15/25 12:00 Temperature Pulse Rate 92 81 Respiratory Rate 16 Blood Pressure 148/77 H Pulse Oximetry 99 100 Oxygen Delivery Room Air Fraction of Inspired Oxygen 04/15/25 16:00 04/15/25 16:00 Temperature Pulse Rate 88 85 Respiratory Rate 16 Blood Pressure 154/84 H Pulse Oximetry 100 Oxygen Delivery Fraction of Inspired Oxygen Exam 2 Narrative: Cooperative, oriented x2. Abdomen: Large vertical postsurgical scar, colostomy back in left lower quadrant. Soft, nontender. Results Labs 04/15/25 04:44 04/15/25 04:44 Labs: Short CBC 04/15/25 Range/Units 04:44 WBC 2.1 L (4.5-10.0) K/mm3 Hgb 7.5 L (12.0-15.0) g/dL Hct 25.2 L (37.0-47.0) % Plt Count 191 (150-375) k/mm3 BMP 04/15/25 04:44 Sodium 137 Potassium 3.4 Chloride 110 H Carbon Dioxide 23 BUN 7 Creatinine 0.48 L Glucose 112 H Calcium 8.2 L Liver Function 04/15/25 Range/Units 04:44 Total Bilirubin 0.1 L (0.2-1.3) mg/dL AST 61 H (14-36) U/L ALT 53 H (6-35) U/L Alkaline Phosphatase 217 H (38-126) U/L Albumin 2.8 L (3.5-5.1) g/dL
[2025-04-15] MEDS: MIRTAZAPINE 15 MG TABLET PO (21:18)
[2025-04-16] VITALS (8 sets, daily range): BP systolic 145–154; BP diastolic 70–82; PULSE 72–100; RESP 14–20; TEMP 36.8–37.4; O2SAT 97–100
[2025-04-16] MEDS: HYDROmorphone HCL INJ (*CRX) 2 MG/ML VIAL 0.5 MG IV PUSH ×3 (02:36→23:55)
[2025-04-16 05:15] LABS: Basophils Percent Auto 0.4 % (0.2-1.2); Eosinophils Percent Auto 0.4 % (0-4.4); Hematocrit 25.8 % (37.0-47.0); Hemoglobin 7.6 g/dL (12.0-15.0); Immature Granulocyte Absolute 0.01 K/mm3 (0.00-0.031); Immature Granulocyte Percent A 0.4 % (0-0.5); Lymphocytes Absolute Auto 1.13 K/mm3 (0.9-3.2); Lymphocytes Percent Auto 49.6 % (18.3-44.2); Mean Corpuscular HGB Conc 29.5 g/dl (32-36); Mean Corpuscular Hemoglobin 25.8 pg (26-34); Mean Corpuscular Volume 87.5 fl (80-100); Mean Platelet Volume 9.9 fl (7.4-10.4); Monocytes Absolute Auto 0.2 K/mm3 (0.1-0.6); Monocytes Percent Auto 6.6 % (2.6-8.5); Neutrophils Percent Auto 42.6 % (45.5-73.1); Platelet Count Result 173 k/mm3 (150-375); Red Blood Count 2.95 M/mm3 (4.2-5.4); Red Cell Distribution Width 17.6 % (11.5-14.5); White Blood Count 2.3 K/mm3 (4.5-10.0)
[2025-04-16 05:25] LABS: Alanine Aminotransferase 48 U/L (6-35); Albumin Level 2.9 g/dL (3.5-5.1); Alkaline Phosphatase 259 U/L (38-126); Anion Gap 8 mmol/L (4-12); Aspartate Amino Transferase 52 U/L (14-36); Bilirubin,Total 0.2 mg/dL (0.2-1.3); Blood Urea Nitrogen 5 mg/dL (7-17); Calcium 8.1 mg/dL (8.4-10.2); Carbon Dioxide 21 mmol/L (22-30); Chloride 108 mmol/L (98-107); Estimated CRCL calculation 75 ml/min; Estimated Glomerular Filt Rate > 60; Glucose 96 mg/dL (65-110); Magnesium 1.8 mg/dL (1.6-2.3); Potassium 3.3 mmol/L (3.4-5.0); Sodium 137 mmol/L (137-145); Total Protein 7.1 g/dL (6.3-8.2)
[2025-04-16 06:01] LABS: Band Neutrophils Percent 0 % (0-6); Hypochromasia 1+; Platelet Estimate Adequate (Adequate)
[2025-04-16 06:02] LABS: Ovalocytes 1+; Schistocytes None Seen; Target Cells 1+
[2025-04-16] MEDS: POTASSIUM CHLORIDE 20 MEQ ER TABLET 40 MEQ PO (08:21)
[2025-04-16] MEDS: amLODIPine BESYLATE 5 MG TABLET PO (08:21)
[2025-04-16] MEDS: ENOXAPARIN 80 MG/0.8 ML SYRINGE SUB-Q ×2 (08:21→20:47)
[2025-04-16] MEDS: SERTRALINE HCL 25 MG TABLET PO (08:21)
[2025-04-16] MEDS: PANTOPRAZOLE SODIUM IV 40 MG VIAL IV PUSH (08:21)
[2025-04-16] MEDS: levETIRAcetam 1500MG/NACL100ML 1,500 MG/100 ML BAG 400 MG IVPB ×2 (08:22→20:47)
[2025-04-16] MEDS: SODIUM CHLORIDE 0.9% IV 1,000 ML 75 ML IV CONT ×2 (08:41→22:43)
--- NOTE | 2025-04-16 11:48 | PCPTNOTE ---
Attempted to see patient for PT, however patient refused. Educated patient on the importance and benefits of therapy and getting, patient continued to refuse.
--- NOTE | 2025-04-16 12:54 | PM.IMPN ---
Progress Note: A&P Assessment and Plan (1) Acute respiratory failure: Code(s): J96.00 - Acute respiratory failure, unspecified whether with hypoxia or hypercapnia Status: Acute Assessment and Plan: Acute Respiratory failure secondary to altered mental status and inability to protect airway Patient was intubated and extubated on 03/30; able to be weaned to room air easily Avoid sedatives Follow clinically (2) Sepsis: Code(s): A41.9 - Sepsis, unspecified organism Status: Acute Assessment and Plan: Sepsis secondary to bowel perforation, peritonitis, UTI UCx negative. BCx negative Treated with Zosyn and has complete a course Sepsis resolved. (3) Perforation bowel: Code(s): K63.1 - Perforation of intestine (nontraumatic) Status: Acute Assessment and Plan: CT A/P 03/28 showing sigmoid diverticulosis with a 6cm cavity consistent with a contained bowel perforation. Gen surgery consulted and she underwent an exploratory laparotomy with sigmoid colon resection with end descending colostomy and an ileal resection with [id number] ileal anastomosis Management per General surgery. Surgery okayed to restart lovenox. Antibiotics as above completed course (4) Altered mental status: Code(s): R41.82 - Altered mental status, unspecified Status: Acute Assessment and Plan: Patient presented with altered mental status. Patient also has history of seizure disorder and may have had seizure and be postictal. Other possibilities are sepsis as she had a perforated bowel; rapid response felt secondary to deterioration of mental status from Dilaudid. MRI brain 03/27 showed no acute intracranial process. EEG showing nearly continuous focal slow wave activity intermixed with sharp wave transients were seen over left frontal area. This may relate to having previous surgery in this area. Focal slowing is suggestive of underlying structural lesion. Sharp transients are considered nonspecific focal interictal abnormality. Mild background slowing suggestive of generalized encephalopathy. TSH and B12 normal. Ammonia normal Neurology following Patient is awake but confused. May be close to her baseline. Follow (5) C2 cervical fracture: Code(s): S12.100A - Unspecified displaced fracture of second cervical vertebra, initial encounter for closed fracture Status: Inactive Assessment and Plan: Patient had a C2 fracture from fall few weeks ago. Patient was evaluated by Neurosurgery. MRI C-spine showed a fracture at the base of the odontoid process possibly extending from the C2 vertebral body, most compatible with acute fracture. There is minimal marrow edema and suggestion of possible early cortication along the fracture margins. Alignment appears unchanged as compared to prior CT scans. Continue C-collar at all times Apprecaite neurosurgery input (6) Dysphagia: Qualifiers: Dysphagia type: oropharyngeal phase Qualified Code(s): R13.12 - Dysphagia, oropharyngeal phase Code(s): R13.10 - Dysphagia, unspecified Status: Acute Assessment and Plan: Speech therapy note from 03/27 showing they recommend minced and moist Level 5. Repeat eval showing patient failed her swallow study 04/01 Speech Therapy following and patient able to be advanced back to minced and moist Level 5. Not taking enough and GTube recommended. GI to speak with family about GTube. (7) Seizure disorder: Code(s): G40.909 - Epilepsy, unspecified, not intractable, without status epilepticus Status: Acute Assessment and Plan: History of seizure disorder. Continue Keppra. EEG as above. Neurology following. (8) Anemia: Code(s): D64.9 - Anemia, unspecified Status: Acute Assessment and Plan: 03/30 Hemoglobin 6.2 likely secondary to surgery and hemodilution. No objective evidence of bleeding at this time. Stool is brown Transfused 1 unit PRBC Hgb low but stable in the 7 range. Continue PPI Follow Hgb and transfuse to a stable hgb (9) DVT (deep venous thrombosis): Code(s): I82.409 - Acute embolism and thrombosis of unspecified deep veins of unspecified lower extremity Status: Acute Assessment and Plan: Venous Doppler shows thrombus in the left cephalic and basilic veins and left upper extremity. Despite being on DVT prophylaxis now has DVT right subclavian, axillary and basilic veins likely PICC line associated. Switched to therapeutic Lovenox. Picc line removed on 04/11/25. Change to Eliquis once GTube placed. (10) Depression: Code(s): F32.A - Depression, unspecified Status: Acute Assessment and Plan: Patient with ongoing MDD with lack of motivation Zoloft and then mirtazapine added Continue to monitor mood (11) GI bleed: Code(s): K92.2 - Gastrointestinal hemorrhage, unspecified Status: Acute Assessment and Plan: Brown stool in colostomy General surgery and GI following. Hgb remains stable. Monitor (12) Hypokalemia: Code(s): E87.6 - Hypokalemia Status: Acute Assessment and Plan: Potassium 3.3 Replace potassium. Continue to monitor. (13) Decreased oral intake: Code(s): R63.8 - Other symptoms and signs concerning food and fluid intake Status: Acute Assessment and Plan: Mirtazapine increased. Avoiding Megace due to DVT. Encourage oral intake. GI to discuss with family about GTube (14) UTI (urinary tract infection): Code(s): N39.0 - Urinary tract infection, site not specified Status: Resolved Assessment and Plan: UA noted. UCx negative. UTI ruled out At risk with chronic Post Plan DVT prophylaxis - SCD, Lovenox Code Status - Full Code Subjective Date/time seen: 04/16/25 12:54 Interval history: 75yo female with seizures, CAD, HTN and recent C-2 cervical spine fracture here for AMS. Assuming care. Chart reviewed. No family available. She is alert but confused. She has whispering speech and stops responding to questions at times. Review of Systems Review of Systems: ROS unobtainable: Yes unobtainable due to mental status Exam Narrative: Tm 100.6 99.4 150/82 91 14 100% ra Gen - NARD HEENT - no facial asymmetry Neck - cervical collar in place Chest - CTA bilaterally, nml RR CV - RRR S1/S2. Tele showing occasional PVCs o/w no acute dysrhythmias Abd - Soft, epigatric pain to palpation. LLQ ostomy secured with brown stool in bag. Midline incision clean and dry - Post secured draining clear yellow urine Ext - No pedal edema Neuro - Alert and oriented to [facility] name and that she is in a 'hospital' but not the month, year or name of hosp. LUE intention tremor noted. Diffuse weakness. Psych - whispering speech. stops responding to questions at times Skin - Warm and dry Objective Data Vital Signs Vital Signs: Vital Signs - 24 hr 04/15/25 16:00 04/15/25 16:00 04/15/25 20:00 Temperature 100.6 F H Pulse Rate 88 85 96 Respiratory Rate 16 20 Blood Pressure 154/84 H 151/67 H Pulse Oximetry 100 100 Oxygen Delivery 04/15/25 20:00 04/15/25 20:00 04/16/25 00:00 Temperature Pulse Rate 94 96 Respiratory Rate Blood Pressure Pulse Oximetry Oxygen Delivery Room Air 04/16/25 00:00 04/16/25 03:32 04/16/25 04:00 Temperature 99.1 F 99.3 F Pulse Rate 98 100 94 Respiratory Rate 18 20 Blood Pressure 146/71 H 152/70 H Pulse Oximetry 100 99 Oxygen Delivery 04/16/25 08:00 04/16/25 08:00 04/16/25 08:00 Temperature 99.4 F Pulse Rate 95 91 Respiratory Rate 14 Blood Pressure 150/82 H Pulse Oximetry 100 Oxygen Delivery Room Air Intake/Output Intake/Output: Intake & Output 04/13/25 04/14/25 04/15/25 04/16/25 23:59 23:59 23:59 23:59 Intake Total 2078.7 3198.8 3015.8 1025 Output Total 1900 2190 2530 1200 Balance 178.7 1008.8 485.8 -175 Meds/Results Medications: Active Medications Generic Name Dose Route Start Last Admin Trade Name Freq PRN Reason Stop Dose Admin Acetaminophen 1,000 mg 04/04/25 14:11 04/15/25 09:11 Acetaminophen 500 Mg Tablet PO 1,000 mg Q6H PRN Administration fever or pain 1-3 Acetaminophen 650 mg 04/10/25 20:57 04/10/25 21:08 Acetaminophen 650 Mg Suppository RECTAL 650 mg Q4H PRN Administration Mild Pain (1-3) or Fever Albuterol/Ipratropium 3 ml 03/30/25 04:29 03/30/25 05:49 Ipratropium 0.5 Mg/Albuterol Sulfate 2.5 Mg Ampul.Neb 3 Ml INHALATION 3 ml Q6HRT PRN Administration Wheezing Amlodipine Besylate 5 mg 04/10/25 09:00 04/16/25 08:21 Amlodipine Besylate 5 Mg Tablet PO 5 mg DAILY JAYDEN Administration Enoxaparin Sodium 80 mg 04/05/25 22:00 04/16/25 08:21 Enoxaparin 80 Mg/0.8 Ml Syringe SUB-Q 80 mg Q12HR JAYDEN Administration Hydromorphone HCl 0.5 mg 04/08/25 13:06 04/16/25 02:36 Hydromorphone Hcl Inj (*Crx) 2 Mg/Ml Vial IV PUSH 0.5 mg Q4H PRN Administration Pain Rated 5-10 if npo Sodium Chloride 1,000 mls @ 75 mls/hr 04/10/25 21:05 04/16/25 08:41 Normal Saline Iv IV CONT 75 mls/hr .[id number] JAYDEN Administration Levetiracetam 1,500 mg in 100 mls @ 400 mls/hr 04/11/25 09:00 04/16/25 08:22 Keppra Iv IVPB 400 mls/hr Q12HR JAYDEN Administration Mirtazapine 15 mg 04/14/25 21:00 04/15/25 21:18 Mirtazapine 15 Mg Tablet PO 15 mg HS JAYDEN Administration Naloxone HCl 0.1 mg 03/29/25 00:02 Naloxone Hcl 0.4 Mg/Ml Vial IV PUSH Q2M PRN Opiate Reversal Ondansetron HCl 4 mg 03/26/25 14:08 Ondansetron Inj 4 Mg/2 Ml Vial IV PUSH Q6H PRN Nausea And Vomiting Pantoprazole Sodium 40 mg 04/08/25 21:00 04/16/25 08:21 Pantoprazole Sodium Iv 40 Mg Vial IV PUSH 40 mg Q12HR JAYDEN Administration Sertraline HCl 25 mg 04/06/25 18:00 04/16/25 08:21 Sertraline Hcl 25 Mg Tablet PO 25 mg QAM JAYDEN Administration Simethicone 80 mg 04/05/25 17:41 04/15/25 09:13 Simethicone 80 Mg Tab.Chew PO 80 mg QID PRN Administration Gas Discomfort Sodium Chloride 10 ml 03/29/25 09:36 Central Line Flush IV PUSH PRN PRN with TPN bag changes Sodium Chloride 20 ml 03/29/25 09:36 Central Line Flush IV PUSH PRN PRN after blood draws Radiology Results: ITS Impressions Modified Barium Swallow 03/27/25 15:26 IMPRESSION: Oropharyngeal dysphagia with intermittent laryngeal penetration with indeterminate/possible minimal aspiration. Please correlate with speech pathologist findings and specific feeding recommendations. Brain MRI 03/27/25 15:28 IMPRESSION: 1. Normal aging brain with minimal periventricular calcific white matter T2 hyperintensity consistent with chronic small vessel ischemic disease. No acute intracranial process. Cervical Spine MRI 03/28/25 08:39 Impression: Fractured the base of the odontoid process possibly extending from the C2 vertebral body detailed above, most compatible with acute fracture. There is minimal marrow edema and suggestion of possible early cortication along the fracture margins. Alignment appears unchanged as compared to prior CT scans. Anterior fusion of C5 and C6. Moderate to advanced degenerative spondylosis otherwise, as detailed above, with multilevel neural foraminal narrowing. Abdomen X-Ray 04/01/25 10:44 IMPRESSION: 1. Nasogastric tube in the stomach. Chest X-Ray 04/04/25 14:06 IMPRESSION: Inadvertent withdrawal of the previously identified PICC line, which now projects over the right subclavian vein, as detailed above. Venous Doppler Study 04/05/25 11:34 IMPRESSION: 1. Bilateral upper extremity venous thrombosis with deep venous thrombosis of the right subclavian and axillary veins. Head CT 04/10/25 10:35 IMPRESSION: 1. No acute intracranial process. 2. Age-related changes including mild to moderate diffuse volume loss and mild scattered white matter attenuation consistent with chronic small vessel ischemic disease. 3. Chronic left frontal craniotomy. Chest/Abdomen/Pelvis CT 04/10/25 10:37 IMPRESSION: 1. Change of recent partial colectomy with left lower quadrant colostomy. No abscess or bowel obstruction. 2. Mild cardiomegaly. No acute cardiopulmonary disease. 3. Nonobstructing nephrolithiasis. Labs Labs: Laboratory Results - last 24 hr 04/16/25 04:56 WBC 2.3 L RBC 2.95 L Hgb 7.6 L Hct 25.8 L MCV 87.5 MCH 25.8 L MCHC 29.5 L RDW 17.6 H Plt Count 173 MPV 9.9 Immature Gran % (Auto) 0.4 Neut % (Auto) 42.6 L Lymph % (Auto) 49.6 H [place] % (Auto) 6.6 Eos % (Auto) 0.4 Baso % (Auto) 0.4 Lymph # (Auto) 1.13 [place] # (Auto) 0.2 Eos # (Auto) 0.0 Baso # (Auto) 0.0 Abs Immat Gran (auto) 0.01 Absolute Neuts (auto) 1.0 L Absolute Nucleated RBC 0.000 Band Neutrophils % 0 Nucleated RBC % 0.0 Platelet Estimate Adequate Hypochromasia 1+ Target Cells 1+ Ovalocytes 1+ Schistocytes None seen Sodium 137 Potassium 3.3 L Chloride 108 H Carbon Dioxide 21 L Anion Gap 8 BUN 5 L Creatinine 0.53 L Estim Creat Clear Calc 75 Estimated GFR > 60 Glucose 96 Calcium 8.1 L Magnesium 1.8 Total Bilirubin 0.2 AST 52 H ALT 48 H Alkaline Phosphatase 259 H Total Protein 7.1 Albumin 2.9 L
--- NOTE | 2025-04-16 13:42 | PCPTNOTE ---
Attempted to see patient for PT, however patient refused.
--- NOTE | 2025-04-16 15:58 | P.PNGI_ITS ---
Progress Note: A&P Assessment and Plan (1) Dysphagia: Qualifiers: Dysphagia type: oropharyngeal phase Qualified Code(s): R13.12 - Dysphagia, oropharyngeal phase Code(s): R13.10 - Dysphagia, unspecified Status: Acute Assessment and Plan: As per prior evaluation, the patient is considered a good candidate for PEG placement, however, there is no family available to discuss about the procedure and to obtain a consent. Please notify us when this happens and will be glad to schedule the patient for the procedure. Subjective Date/time seen: 04/16/25 15:58 Objective Data Vital Signs Vital Signs: Vital Signs - 24 hr 04/15/25 16:00 04/15/25 16:00 04/15/25 20:00 Temperature 100.6 F H Pulse Rate 88 85 96 Respiratory Rate 16 20 Blood Pressure 154/84 H 151/67 H Pulse Oximetry 100 100 Oxygen Delivery 04/15/25 20:00 04/15/25 20:00 04/16/25 00:00 Temperature Pulse Rate 94 96 Respiratory Rate Blood Pressure Pulse Oximetry Oxygen Delivery Room Air 04/16/25 00:00 04/16/25 03:32 04/16/25 04:00 Temperature 99.1 F 99.3 F Pulse Rate 98 100 94 Respiratory Rate 18 20 Blood Pressure 146/71 H 152/70 H Pulse Oximetry 100 99 Oxygen Delivery 04/16/25 08:00 04/16/25 08:00 04/16/25 08:00 Temperature 99.4 F Pulse Rate 95 91 Respiratory Rate 14 Blood Pressure 150/82 H Pulse Oximetry 100 Oxygen Delivery Room Air 04/16/25 12:00 04/16/25 12:00 Temperature 98.7 F Pulse Rate 95 100 Respiratory Rate 16 Blood Pressure 148/77 H Pulse Oximetry 99 Oxygen Delivery Intake/Output Intake/Output: Intake & Output 04/13/25 04/14/25 04/15/25 04/16/25 23:59 23:59 23:59 23:59 Intake Total 2078.7 3198.8 3015.8 1025 Output Total 1900 2190 2530 1250 Balance 178.7 1008.8 485.8 -225 Meds/Results Medications: Active Medications Generic Name Dose Route Start Last Admin Trade Name Freq PRN Reason Stop Dose Admin Acetaminophen 1,000 mg 04/04/25 14:11 04/15/25 09:11 Acetaminophen 500 Mg Tablet PO 1,000 mg Q6H PRN Administration fever or pain 1-3 Acetaminophen 650 mg 04/10/25 20:57 04/10/25 21:08 Acetaminophen 650 Mg Suppository RECTAL 650 mg Q4H PRN Administration Mild Pain (1-3) or Fever Albuterol/Ipratropium 3 ml 03/30/25 04:29 03/30/25 05:49 Ipratropium 0.5 Mg/Albuterol Sulfate 2.5 Mg Ampul.Neb 3 Ml INHALATION 3 ml Q6HRT PRN Administration Wheezing Amlodipine Besylate 5 mg 04/10/25 09:00 04/16/25 08:21 Amlodipine Besylate 5 Mg Tablet PO 5 mg DAILY JAYDEN Administration Enoxaparin Sodium 80 mg 04/05/25 22:00 04/16/25 08:21 Enoxaparin 80 Mg/0.8 Ml Syringe SUB-Q 80 mg Q12HR JAYDEN Administration Hydromorphone HCl 0.5 mg 04/08/25 13:06 04/16/25 02:36 Hydromorphone Hcl Inj (*Crx) 2 Mg/Ml Vial IV PUSH 0.5 mg Q4H PRN Administration Pain Rated 5-10 if npo Sodium Chloride 1,000 mls @ 75 mls/hr 04/10/25 21:05 04/16/25 08:41 Normal Saline Iv IV CONT 75 mls/hr .[id number] JAYDEN Administration Levetiracetam 1,500 mg in 100 mls @ 400 mls/hr 04/11/25 09:00 04/16/25 08:22 Keppra Iv IVPB 400 mls/hr Q12HR JAYDEN Administration Mirtazapine 15 mg 04/14/25 21:00 04/15/25 21:18 Mirtazapine 15 Mg Tablet PO 15 mg HS JAYDEN Administration Naloxone HCl 0.1 mg 03/29/25 00:02 Naloxone Hcl 0.4 Mg/Ml Vial IV PUSH Q2M PRN Opiate Reversal Ondansetron HCl 4 mg 03/26/25 14:08 Ondansetron Inj 4 Mg/2 Ml Vial IV PUSH Q6H PRN Nausea And Vomiting Pantoprazole Sodium 40 mg 04/08/25 21:00 04/16/25 08:21 Pantoprazole Sodium Iv 40 Mg Vial IV PUSH 40 mg Q12HR JAYDEN Administration Sertraline HCl 25 mg 04/06/25 18:00 04/16/25 08:21 Sertraline Hcl 25 Mg Tablet PO 25 mg QAM JAYDEN Administration Simethicone 80 mg 04/05/25 17:41 04/15/25 09:13 Simethicone 80 Mg Tab.Chew PO 80 mg QID PRN Administration Gas Discomfort Sodium Chloride 10 ml 03/29/25 09:36 Central Line Flush IV PUSH PRN PRN with TPN bag changes Sodium Chloride 20 ml 03/29/25 09:36 Central Line Flush IV PUSH PRN PRN after blood draws Radiology Results: ITS Impressions Modified Barium Swallow 03/27/25 15:26 IMPRESSION: Oropharyngeal dysphagia with intermittent laryngeal penetration with indeterminate/possible minimal aspiration. Please correlate with speech pathologist findings and specific feeding recommendations. Brain MRI 03/27/25 15:28 IMPRESSION: 1. Normal aging brain with minimal periventricular calcific white matter T2 hyperintensity consistent with chronic small vessel ischemic disease. No acute intracranial process. Cervical Spine MRI 03/28/25 08:39 Impression: Fractured the base of the odontoid process possibly extending from the C2 vertebral body detailed above, most compatible with acute fracture. There is minimal marrow edema and suggestion of possible early cortication along the fracture margins. Alignment appears unchanged as compared to prior CT scans. Anterior fusion of C5 and C6. Moderate to advanced degenerative spondylosis otherwise, as detailed above, with multilevel neural foraminal narrowing. Abdomen X-Ray 04/01/25 10:44 IMPRESSION: 1. Nasogastric tube in the stomach. Chest X-Ray 04/04/25 14:06 IMPRESSION: Inadvertent withdrawal of the previously identified PICC line, which now projects over the right subclavian vein, as detailed above. Venous Doppler Study 04/05/25 11:34 IMPRESSION: 1. Bilateral upper extremity venous thrombosis with deep venous thrombosis of the right subclavian and axillary veins. Head CT 04/10/25 10:35 IMPRESSION: 1. No acute intracranial process. 2. Age-related changes including mild to moderate diffuse volume loss and mild scattered white matter attenuation consistent with chronic small vessel ischemic disease. 3. Chronic left frontal craniotomy. Chest/Abdomen/Pelvis CT 04/10/25 10:37 IMPRESSION: 1. Change of recent partial colectomy with left lower quadrant colostomy. No abscess or bowel obstruction. 2. Mild cardiomegaly. No acute cardiopulmonary disease. 3. Nonobstructing nephrolithiasis. Labs Labs: Laboratory Results - last 24 hr 04/16/25 04:56 WBC 2.3 L RBC 2.95 L Hgb 7.6 L Hct 25.8 L MCV 87.5 MCH 25.8 L MCHC 29.5 L RDW 17.6 H Plt Count 173 MPV 9.9 Immature Gran % (Auto) 0.4 Neut % (Auto) 42.6 L Lymph % (Auto) 49.6 H [place] % (Auto) 6.6 Eos % (Auto) 0.4 Baso % (Auto) 0.4 Lymph # (Auto) 1.13 [place] # (Auto) 0.2 Eos # (Auto) 0.0 Baso # (Auto) 0.0 Abs Immat Gran (auto) 0.01 Absolute Neuts (auto) 1.0 L Absolute Nucleated RBC 0.000 Band Neutrophils % 0 Nucleated RBC % 0.0 Platelet Estimate Adequate Hypochromasia 1+ Target Cells 1+ Ovalocytes 1+ Schistocytes None seen Sodium 137 Potassium 3.3 L Chloride 108 H Carbon Dioxide 21 L Anion Gap 8 BUN 5 L Creatinine 0.53 L Estim Creat Clear Calc 75 Estimated GFR > 60 Glucose 96 Calcium 8.1 L Magnesium 1.8 Total Bilirubin 0.2 AST 52 H ALT 48 H Alkaline Phosphatase 259 H Total Protein 7.1 Albumin 2.9 L
[2025-04-16] MEDS: MIRTAZAPINE 15 MG TABLET PO (20:48)
[2025-04-16] MEDS: ACETAMINOPHEN 500 MG TABLET 1000 MG PO (23:22)
[2025-04-17] VITALS (9 sets, daily range): BP systolic 130–161; BP diastolic 62–72; PULSE 76–98; RESP 16–18; TEMP 36.4–37.2; O2SAT 93–100
[2025-04-17 05:57] LABS: Eosinophils Percent Auto 0.4 % (0-4.4); Hematocrit 25.3 % (37.0-47.0); Hemoglobin 7.4 g/dL (12.0-15.0); Immature Granulocyte Absolute 0.01 K/mm3 (0.00-0.031); Immature Granulocyte Percent A 0.4 % (0-0.5); Lymphocytes Absolute Auto 1.37 K/mm3 (0.9-3.2); Lymphocytes Percent Auto 48.2 % (18.3-44.2); Mean Corpuscular HGB Conc 29.2 g/dl (32-36); Mean Corpuscular Hemoglobin 25.4 pg (26-34); Mean Corpuscular Volume 86.9 fl (80-100); Mean Platelet Volume 10.3 fl (7.4-10.4); Monocytes Absolute Auto 0.2 K/mm3 (0.1-0.6); Monocytes Percent Auto 8.1 % (2.6-8.5); Neutrophils Absolute Auto 1.2 K/mm3 (1.3-6.7); Neutrophils Percent Auto 42.9 % (45.5-73.1); Platelet Count Result 174 k/mm3 (150-375); Red Blood Count 2.91 M/mm3 (4.2-5.4); Red Cell Distribution Width 17.4 % (11.5-14.5); White Blood Count 2.8 K/mm3 (4.5-10.0)
[2025-04-17 06:14] LABS: Alanine Aminotransferase 39 U/L (6-35); Albumin Level 2.7 g/dL (3.5-5.1); Alkaline Phosphatase 237 U/L (38-126); Anion Gap 5 mmol/L (4-12); Aspartate Amino Transferase 48 U/L (14-36); Bilirubin,Total 0.1 mg/dL (0.2-1.3); Blood Urea Nitrogen 6 mg/dL (7-17); Calcium 8.1 mg/dL (8.4-10.2); Carbon Dioxide 22 mmol/L (22-30); Chloride 108 mmol/L (98-107); Estimated CRCL calculation 75 ml/min; Estimated Glomerular Filt Rate > 60; Glucose 86 mg/dL (65-110); Magnesium 1.8 mg/dL (1.6-2.3); Potassium 3.3 mmol/L (3.4-5.0); Sodium 135 mmol/L (137-145); Total Protein 6.5 g/dL (6.3-8.2)
[2025-04-17 06:51] LABS: Anisocytosis 1+; Hypochromasia 1+; Platelet Estimate Adequate (Adequate); Schistocytes None Seen
[2025-04-17] MEDS: amLODIPine BESYLATE 5 MG TABLET PO (08:41)
[2025-04-17] MEDS: POTASSIUM CHLORIDE 20 MEQ ER TABLET 40 MEQ PO (08:41)
[2025-04-17] MEDS: levETIRAcetam 500 MG TABLET 1500 MG PO ×2 (08:42→20:41)
[2025-04-17] MEDS: SERTRALINE HCL 25 MG TABLET PO (08:42)
[2025-04-17] MEDS: ENOXAPARIN 80 MG/0.8 ML SYRINGE SUB-Q (08:50)
--- NOTE | 2025-04-17 11:16 | WPDNEUROLOGY ---
Neurology EEG Report General Information Date of Study: 04/14/25 TEST Electroencephalogram DIAGNOSIS metabolic encephalopathy CONDITION OF RECORDING bedside recording EEG NUMBER [id number] CLINICAL HISTORY history of changes in mental status. EEG DESCRIPTION The background activity consists of predominantly theta activity at 5-6 hertz with an amplitude of 10-20 microvolts. There is no significant anteroposterior gradient. During drowsiness attenuation of background activity and frontal intermittent rhythmic delta activity were seen. Hyperventilation or photic stimulation were not performed. IMPRESSION This is an abnormal EEG due to presence of diffuse background slowing suggestive of generalized encephalopathy. No focal or paroxysmal epileptiform abnormality was seen.
--- NOTE | 2025-04-17 12:40 | PM.IMPN ---
Progress Note: A&P Assessment and Plan (1) Dysphagia: Qualifiers: Dysphagia type: oropharyngeal phase Qualified Code(s): R13.12 - Dysphagia, oropharyngeal phase Code(s): R13.10 - Dysphagia, unspecified Status: Acute Assessment and Plan: Speech therapy note from 03/27 showing they recommend minced and moist Level 5. Repeat eval showing patient failed her swallow study 04/01 Speech Therapy following and patient able to be advanced back to minced and moist Level 5. Not taking enough and GTube recommended. Spoke with family and they do not want to proceed with feeding tube. They state the patient has told them she does not want this. With care coordination in the room, I spoke with a dtr in the room and with the POA on the phone. I recommended hospice care since the patient will begin to decline with poor oral intake. They did want to continue anticoagulation. They were agreeable to cahnge to DNR status. They will speak with care coordination about hospice. (2) Decreased oral intake: Code(s): R63.8 - Other symptoms and signs concerning food and fluid intake Status: Acute Assessment and Plan: Mirtazapine increased. Avoiding Megace due to DVT. Encourage oral intake. Family has been trying to assist patient to eat but patient has been refusing even with family. (3) DVT (deep venous thrombosis): Code(s): I82.409 - Acute embolism and thrombosis of unspecified deep veins of unspecified lower extremity Status: Acute Assessment and Plan: Venous Doppler shows thrombus in the left cephalic and basilic veins and left upper extremity. Despite being on DVT prophylaxis now has DVT right subclavian, axillary and basilic veins likely PICC line associated. Switched to therapeutic Lovenox on 04/05/25. Picc line removed on 04/11/25. Will change to Eliquis today and start 5mg Q12h since been on therapeutic Lovenox (4) Acute respiratory failure: Code(s): J96.00 - Acute respiratory failure, unspecified whether with hypoxia or hypercapnia Status: Acute Assessment and Plan: Acute Respiratory failure secondary to altered mental status and inability to protect airway Patient was intubated and extubated on 03/30; able to be weaned to room air easily Stable and remains on rrom air. Appears to be protecting her airway but not eating much Avoid sedatives Follow clinically (5) Sepsis: Code(s): A41.9 - Sepsis, unspecified organism Status: Acute Assessment and Plan: Sepsis secondary to bowel perforation, peritonitis UCx negative. BCx negative Treated with Zosyn and has complete a course Sepsis resolved. (6) Perforation bowel: Code(s): K63.1 - Perforation of intestine (nontraumatic) Status: Acute Assessment and Plan: CT A/P 03/28 showing sigmoid diverticulosis with a 6cm cavity consistent with a contained bowel perforation. Gen surgery consulted and she underwent an exploratory laparotomy with sigmoid colon resection with end descending colostomy and an ileal resection with [id number] ileal anastomosis on 03/28/25. Management per General surgery. Surgery okayed to restart lovenox. Antibiotics as above and has completed a course (7) Altered mental status: Code(s): R41.82 - Altered mental status, unspecified Status: Acute Assessment and Plan: Patient presented with altered mental status. Patient also has history of seizure disorder and may have had seizure and be postictal. Other possibilities are sepsis as she had a perforated bowel; rapid response felt secondary to deterioration of mental status from Dilaudid. MRI brain 03/27 showed no acute intracranial process. EEG 03/29 showing nearly continuous focal slow wave activity intermixed with sharp wave transients were seen over left frontal area. This may relate to having previous surgery in this area. Focal slowing is suggestive of underlying structural lesion. Sharp transients are considered nonspecific focal interictal abnormality. Mild background slowing suggestive of generalized encephalopathy. TSH and B12 normal. Ammonia normal Neurology following Repeat EEG 04/14 showing abnormal EEG due to presence of diffuse background slowing suggestive of generalized encephalopathy. No focal or paroxysmal epileptiform abnormality was seen. Patient is awake but confused. She has a hx of SDH and subarachnoid hemorrhage. She may be close to her baseline. Follow (8) C2 cervical fracture: Code(s): S12.100A - Unspecified displaced fracture of second cervical vertebra, initial encounter for closed fracture Status: Inactive Assessment and Plan: Patient had a C2 fracture from a fall in February prior to this admission Patient was evaluated by Neurosurgery. MRI C-spine showed a fracture at the base of the odontoid process possibly extending from the C2 vertebral body, most compatible with acute fracture. There is minimal marrow edema and suggestion of possible early cortication along the fracture margins. Alignment appears unchanged as compared to prior CT scans. Continue C-collar at all times Apprecaite neurosurgery input (9) Seizure disorder: Code(s): G40.909 - Epilepsy, unspecified, not intractable, without status epilepticus Status: Acute Assessment and Plan: History of seizure disorder. Continue Keppra. EEG as above. Neurology following. Change to oral Keppra (10) Anemia: Code(s): D64.9 - Anemia, unspecified Status: Acute Assessment and Plan: 03/30 Hemoglobin 6.2 likely secondary to surgery and hemodilution. No objective evidence of bleeding at this time. Stool is brown Transfused 1 unit PRBC Hgb low but stable in the 7 range. Continue PPI Follow Hgb and transfuse to a stable hgb (11) Depression: Code(s): F32.A - Depression, unspecified Status: Acute Assessment and Plan: Patient with ongoing MDD with lack of motivation Zoloft and then mirtazapine added Continue to monitor mood (12) GI bleed: Code(s): K92.2 - Gastrointestinal hemorrhage, unspecified Status: Acute Assessment and Plan: Brown stool in colostomy General surgery and GI following. Hgb remains stable. Monitor (13) Hypokalemia: Code(s): E87.6 - Hypokalemia Status: Acute Assessment and Plan: Potassium 3.3 again Replace potassium. Continue to monitor. (14) UTI (urinary tract infection): Code(s): N39.0 - Urinary tract infection, site not specified Status: Resolved Assessment and Plan: UA noted. UCx negative. UTI ruled out At risk with chronic Post Plan DVT prophylaxis - SCD, Lovenox Code Status - Full Code Subjective Date/time seen: 04/17/25 12:40 Interval history: 75yo female with seizures, CAD, HTN and recent C-2 cervical spine fracture here for AMS. Patient is alert but confused and unable to provide history. Spoke with family in the room who had the [id number] on the phone at the same time. Review of Systems Review of Systems: ROS unobtainable: Yes unobtainable due to mental status Exam Narrative: AF 150/62 90 18 100% ra Gen - NARD Neck - cervical collar in place Chest - clear anteriorly except decreased BS in the right flank; nml RR CV - RRR S1/S2. Tele showing occasional PVCs o/w no acute dysrhythmias Abd - Soft, NT. LLQ ostomy secured with liquid brown stool in bag. Midline incision clean and dry - Post secured draining clear yellow urine Ext - No pedal edema Neuro - Alert and oriented to George name only. Psych - whispering speech. Skin - Warm and dry Objective Data Vital Signs Vital Signs: Vital Signs - 24 hr 04/16/25 16:00 04/16/25 16:00 04/16/25 19:47 Temperature 99.3 F Pulse Rate 89 92 72 Respiratory Rate 14 20 Blood Pressure 145/75 H Pulse Oximetry 100 97 Oxygen Delivery Room Air Fraction of Inspired Oxygen 21 04/16/25 20:00 04/16/25 20:00 04/17/25 00:00 Temperature 98.3 F 98.9 F Pulse Rate 95 96 95 Respiratory Rate 18 18 Blood Pressure 154/72 H 144/72 H Pulse Oximetry 99 100 Oxygen Delivery Fraction of Inspired Oxygen 04/17/25 00:00 04/17/25 03:41 04/17/25 04:00 Temperature 98 F Pulse Rate 98 78 76 Respiratory Rate 18 Blood Pressure 130/70 Pulse Oximetry 99 Oxygen Delivery Fraction of Inspired Oxygen 04/17/25 07:56 04/17/25 08:00 04/17/25 12:00 Temperature 97.6 F 98.0 F Pulse Rate 80 90 Respiratory Rate 18 18 Blood Pressure 150/66 H 150/62 H Pulse Oximetry 93 100 Oxygen Delivery Room Air Fraction of Inspired Oxygen Intake/Output Intake/Output: Intake & Output 04/14/25 04/15/25 04/16/25 04/17/25 23:59 23:59 23:59 23:59 Intake Total 3198.8 3015.8 2365 25 Output Total 2190 2530 2100 1000 Balance 1008.8 485.8 457 -975 Meds/Results Medications: Active Medications Generic Name Dose Route Start Last Admin Trade Name Freq PRN Reason Stop Dose Admin Acetaminophen 1,000 mg 04/04/25 14:11 04/16/25 23:22 Acetaminophen 500 Mg Tablet PO 1,000 mg Q6H PRN Administration fever or pain 1-3 Albuterol/Ipratropium 3 ml 03/30/25 04:29 03/30/25 05:49 Ipratropium 0.5 Mg/Albuterol Sulfate 2.5 Mg Ampul.Neb 3 Ml INHALATION 3 ml Q6HRT PRN Administration Wheezing Amlodipine Besylate 5 mg 04/10/25 09:00 04/17/25 08:41 Amlodipine Besylate 5 Mg Tablet PO 5 mg DAILY JAYDEN Administration Enoxaparin Sodium 80 mg 04/05/25 22:00 04/17/25 08:50 Enoxaparin 80 Mg/0.8 Ml Syringe SUB-Q 80 mg Q12HR JAYDEN Administration Levetiracetam 1,500 mg 04/17/25 09:00 04/17/25 08:42 Levetiracetam 500 Mg Tablet PO 1,500 mg Q12HR JAYDEN Administration Mirtazapine 15 mg 04/14/25 21:00 04/16/25 20:48 Mirtazapine 15 Mg Tablet PO 15 mg HS JAYDEN Administration Naloxone HCl 0.1 mg 03/29/25 00:02 Naloxone Hcl 0.4 Mg/Ml Vial IV PUSH Q2M PRN Opiate Reversal Ondansetron HCl 4 mg 03/26/25 14:08 Ondansetron Inj 4 Mg/2 Ml Vial IV PUSH Q6H PRN Nausea And Vomiting Sertraline HCl 25 mg 04/06/25 18:00 04/17/25 08:42 Sertraline Hcl 25 Mg Tablet PO 25 mg QAM JAYDEN Administration Simethicone 80 mg 04/05/25 17:41 04/15/25 09:13 Simethicone 80 Mg Tab.Chew PO 80 mg QID PRN Administration Gas Discomfort Sodium Chloride 20 ml 03/29/25 09:36 Central Line Flush IV PUSH PRN PRN after blood draws Radiology Results: ITS Impressions Modified Barium Swallow 03/27/25 15:26 IMPRESSION: Oropharyngeal dysphagia with intermittent laryngeal penetration with indeterminate/possible minimal aspiration. Please correlate with speech pathologist findings and specific feeding recommendations. Brain MRI 03/27/25 15:28 IMPRESSION: 1. Normal aging brain with minimal periventricular calcific white matter T2 hyperintensity consistent with chronic small vessel ischemic disease. No acute intracranial process. Cervical Spine MRI 03/28/25 08:39 Impression: Fractured the base of the odontoid process possibly extending from the C2 vertebral body detailed above, most compatible with acute fracture. There is minimal marrow edema and suggestion of possible early cortication along the fracture margins. Alignment appears unchanged as compared to prior CT scans. Anterior fusion of C5 and C6. Moderate to advanced degenerative spondylosis otherwise, as detailed above, with multilevel neural foraminal narrowing. Abdomen X-Ray 04/01/25 10:44 IMPRESSION: 1. Nasogastric tube in the stomach. Chest X-Ray 04/04/25 14:06 IMPRESSION: Inadvertent withdrawal of the previously identified PICC line, which now projects over the right subclavian vein, as detailed above. Venous Doppler Study 04/05/25 11:34 IMPRESSION: 1. Bilateral upper extremity venous thrombosis with deep venous thrombosis of the right subclavian and axillary veins. Head CT 04/10/25 10:35 IMPRESSION: 1. No acute intracranial process. 2. Age-related changes including mild to moderate diffuse volume loss and mild scattered white matter attenuation consistent with chronic small vessel ischemic disease. 3. Chronic left frontal craniotomy. Chest/Abdomen/Pelvis CT 04/10/25 10:37 IMPRESSION: 1. Change of recent partial colectomy with left lower quadrant colostomy. No abscess or bowel obstruction. 2. Mild cardiomegaly. No acute cardiopulmonary disease. 3. Nonobstructing nephrolithiasis. Labs Labs: Laboratory Results - last 24 hr 04/17/25 05:04 WBC 2.8 L RBC 2.91 L Hgb 7.4 L Hct 25.3 L MCV 86.9 MCH 25.4 L MCHC 29.2 L RDW 17.4 H Plt Count 174 MPV 10.3 Immature Gran % (Auto) 0.4 Neut % (Auto) 42.9 L Lymph % (Auto) 48.2 H [place] % (Auto) 8.1 Eos % (Auto) 0.4 Baso % (Auto) 0.0 L Lymph # (Auto) 1.37 [place] # (Auto) 0.2 Eos # (Auto) 0.0 Baso # (Auto) 0.0 Abs Immat Gran (auto) 0.01 Absolute Neuts (auto) 1.2 L Absolute Nucleated RBC 0.000 Band Neutrophils % Not Reportable Nucleated RBC % 0.0 Platelet Estimate Adequate Hypochromasia 1+ Anisocytosis 1+ Schistocytes None seen Sodium 135 L Potassium 3.3 L Chloride 108 H Carbon Dioxide 22 Anion Gap 5 BUN 6 L Creatinine 0.53 L Estim Creat Clear Calc 75 Estimated GFR > 60 Glucose 86 Calcium 8.1 L Magnesium 1.8 Total Bilirubin 0.1 L AST 48 H ALT 39 H Alkaline Phosphatase 237 H Total Protein 6.5 Albumin 2.7 L
[2025-04-17] MEDS: ACETAMINOPHEN 500 MG TABLET 1000 MG PO ×2 (12:50→20:46)
[2025-04-17] MEDS: MIRTAZAPINE 15 MG TABLET PO (20:41)
[2025-04-17] MEDS: APIXABAN 5 MG TABLET PO (20:41)
[2025-04-18] VITALS (9 sets, daily range): BP systolic 132–149; BP diastolic 61–86; PULSE 83–101; RESP 16–20; TEMP 36.5–37; O2SAT 97–100
[2025-04-18] MEDS: SERTRALINE HCL 25 MG TABLET PO (09:17)
[2025-04-18] MEDS: amLODIPine BESYLATE 5 MG TABLET PO (09:17)
[2025-04-18] MEDS: levETIRAcetam 500 MG TABLET 1500 MG PO ×2 (09:18→20:51)
[2025-04-18] MEDS: APIXABAN 5 MG TABLET PO ×2 (09:18→20:52)
--- NOTE | 2025-04-18 09:30 | PCOTNOTE ---
Pt going hospice status so will d/c OT orders at this time.
[2025-04-18] MEDS: ACETAMINOPHEN 500 MG TABLET 1000 MG PO (09:32)
--- NOTE | 2025-04-18 11:30 | PCNFU ---
Nutrition Follow-Up Complete: Inadequate energy intake related to altered GI function, mechanical ventilation as evidenced by NPO Goal; Meet estimated nutrition needs when medically able Patient is not meeting goal. We will continue current goal Pt current nutrition is Minced and Moist Level 5 with Ensure Enlive TID Last recorded weight is 73.9 kg Bowel Motility: Last reported BM 04/18 Labs Reviewed:Glu 135, Alb 2.7 Meds Noted: Remeron, Keppra, Eliquis. Skin: WNL Additional Notes: Patient remains on Minced and Moist, Level 5 diet. Oral intake take remains < 50% of meals. She will drink diet supplements which are providing an additional 350 kcal and 20 gm protein. Hospice is being discussed her nursing. Agree with diet orders at this time. Monitoring orders, plan of care, weights, labs, output Daily in rounds. Follow up in 3 days
--- NOTE | 2025-04-18 12:53 | PCSTNOTE ---
Pt going hospice status so will d/c ST orders at this time.
--- NOTE | 2025-04-18 14:05 | P.PNIM_ITS ---
Progress Note: A&P Assessment and Plan (1) Dysphagia: Qualifiers: Dysphagia type: oropharyngeal phase Qualified Code(s): R13.12 - Dysphagia, oropharyngeal phase Code(s): R13.10 - Dysphagia, unspecified Status: Acute Assessment and Plan: Speech therapy note from 03/27 showing they recommend minced and moist Level 5. Repeat eval showing patient failed her swallow study 04/01 Speech Therapy following and patient able to be advanced back to minced and moist Level 5. Not taking enough and GTube recommended. Spoke with family and they do not want to proceed with feeding tube. They state the patient has told them she does not want this. With care coordination in the room, I spoke with a dtr in the room and with the POA on the phone. I recommended hospice care since the patient will begin to decline with poor oral intake. They did want to continue anticoagulation. They were intially agreeable to change to DNR status but spoke more with patient and changed back to full code today. --Considering G-tube (2) Decreased oral intake: Code(s): R63.8 - Other symptoms and signs concerning food and fluid intake Status: Acute Assessment and Plan: Mirtazapine increased. Avoiding Megace due to DVT. Encourage oral intake. Family has been trying to assist patient to eat but patient has been refusing even with family. Will try again this weekend. Family also concerned that patient is depressed --Trial of lexapro 5mg daily (3) DVT (deep venous thrombosis): Code(s): I82.409 - Acute embolism and thrombosis of unspecified deep veins of unspecified lower extremity Status: Acute Assessment and Plan: Venous Doppler shows thrombus in the left cephalic and basilic veins and left upper extremity. Despite being on DVT prophylaxis now has DVT right subclavian, axillary and basilic veins likely PICC line associated. Switched to therapeutic Lovenox on 04/05/25. Picc line removed on 04/11/25. Will change to Eliquis today and start 5mg Q12h since been on therapeutic Lovenox (4) Acute respiratory failure: Code(s): J96.00 - Acute respiratory failure, unspecified whether with hypoxia or hypercapnia Status: Acute Assessment and Plan: Acute Respiratory failure secondary to altered mental status and inability to protect airway Patient was intubated and extubated on 03/30; able to be weaned to room air easily Stable and remains on rrom air. Appears to be protecting her airway but not eating much Avoid sedatives Follow clinically (5) Sepsis: Code(s): A41.9 - Sepsis, unspecified organism Status: Acute Assessment and Plan: Sepsis secondary to bowel perforation, peritonitis UCx negative. BCx negative Treated with Zosyn and has complete a course Sepsis resolved. (6) Perforation bowel: Code(s): K63.1 - Perforation of intestine (nontraumatic) Status: Acute Assessment and Plan: CT A/P 03/28 showing sigmoid diverticulosis with a 6cm cavity consistent with a contained bowel perforation. Gen surgery consulted and she underwent an exploratory laparotomy with sigmoid colon resection with end descending colostomy and an ileal resection with [id number] ileal anastomosis on 03/28/25. Management per General surgery. Surgery okayed to restart lovenox. Antibiotics as above and has completed a course (7) Altered mental status: Code(s): R41.82 - Altered mental status, unspecified Status: Acute Assessment and Plan: Patient presented with altered mental status. Patient also has history of seizure disorder and may have had seizure and be postictal. Other possibilities are sepsis as she had a perforated bowel; rapid response felt secondary to deterioration of mental status from Dilaudid. MRI brain 03/27 showed no acute intracranial process. EEG 03/29 showing nearly continuous focal slow wave activity intermixed with sharp wave transients were seen over left frontal area. This may relate to having previous surgery in this area. Focal slowing is suggestive of underlying structural lesion. Sharp transients are considered nonspecific focal interictal abnormality. Mild background slowing suggestive of generalized encephalopathy. TSH and B12 normal. Ammonia normal Neurology following Repeat EEG 04/14 showing abnormal EEG due to presence of diffuse background slo wing suggestive of generalized encephalopathy. No focal or paroxysmal epileptiform abnormality was seen. Patient is awake but confused. She has a hx of SDH and subarachnoid hemorrhage. She may be close to her baseline. (8) C2 cervical fracture: Code(s): S12.100A - Unspecified displaced fracture of second cervical vertebra, initial encounter for closed fracture Status: Inactive Assessment and Plan: Patient had a C2 fracture from a fall in February prior to this admission Patient was evaluated by Neurosurgery. MRI C-spine showed a fracture at the base of the odontoid process possibly extending from the C2 vertebral body, most compatible with acute fracture. There is minimal marrow edema and suggestion of possible early cortication along the fracture margins. Alignment appears unchanged as compared to prior CT scans. Continue C-collar at all times Apprecaite neurosurgery input --New pain and numbness to neck on the right, numbness to right arm. Replaced Cross J c-collar --X-ray c-spine. Further imaging pending results --Start flexeril 5mg BID --Oxy 2.5-5mg q4 prn --Defer therapy until imaging complete (9) Seizure disorder: Code(s): G40.909 - Epilepsy, unspecified, not intractable, without status epilepticus Status: Acute Assessment and Plan: History of seizure disorder. Continue Keppra. EEG as above. Neurology following. Change to oral Keppra (10) Anemia: Code(s): D64.9 - Anemia, unspecified Status: Acute Assessment and Plan: 03/30 Hemoglobin 6.2 likely secondary to surgery and hemodilution. No objective evidence of bleeding at this time. Stool is brown Transfused 1 unit PRBC Hgb low but stable in the 7 range. Continue PPI Follow Hgb and transfuse to a stable hgb (11) Depression: Code(s): F32.A - Depression, unspecified Status: Acute Assessment and Plan: Patient with ongoing MDD with lack of motivation Zoloft and then mirtazapine added Continue to monitor mood (12) GI bleed: Code(s): K92.2 - Gastrointestinal hemorrhage, unspecified Status: Acute Assessment and Plan: Brown stool in colostomy General surgery and GI following. Hgb remains stable. Monitor (13) Hypokalemia: Code(s): E87.6 - Hypokalemia Status: Acute Assessment and Plan: Potassium 3.3>2.9 Telemetry Replace potassium, 40meq & 40IV today Mag 400mg x2 Continue to monitor. (14) UTI (urinary tract infection): Code(s): N39.0 - Urinary tract infection, site not specified Status: Resolved Assessment and Plan: UA noted. UCx negative. UTI ruled out At risk with chronic Post Plan DVT prophylaxis - SCD, Lovenox Code Status - Full Code Time Spent With Patient Time: 49 minutes Subjective Date/time seen: 04/18/25 14:05 Interval history: Discussion with family at bedside. Patient is not interested in hospice. Spoke with 2 daughters. Changing code status to full code. Labs and imaging. Reconsidering G-tube Cancelled plan for hospice Reports new numbness to right arm, neck pain. Worse than it has been. Also has numbness to right arm, + weakness. Has not been wearing c-collar. Hospital course 75yo female with seizures, CAD, HTN and recent C-2 cervical spine type III dens fracture here for AMS. Hospital course complicated by a bowel perforation Review of Systems Review of Systems: All systems reviewed & are unremarkable except as noted in HPI and below ROS unobtainable: Yes unobtainable due to endotracheal tube, unobtainable due to medical condition and unobtainable due to mental status Exam Narrative: Gen - NARD Neck - cervical collar replaced Chest - clear anteriorly except decreased BS in the right flank; nml RR CV - RRR S1/S2. Tele showing occasional PVCs o/w no acute dysrhythmias Abd - Soft, NT. LLQ ostomy secured with liquid brown stool in bag. Midline incision clean and dry Ext - No pedal edema Neuro - Alert and oriented x2 Psych - whispering speech. Skin - Warm and dry Const: General: comfortable, no acute distress, alert and awake Orientation/consciousness: oriented to person Other: Spoke softly, following commands HENMT: Ears: TM's normal bilaterally Face/Nose/Sinus: Normal nares present Mouth: Yes moist mucous membranes Other: C-collar in place Eyes: General: appearance normal, both eyes and all related structures Sclera: sclerae normal Pupils: Equal, round and reactive pupils present Neck: Neck: supple and no JVD Resp: Effort & Inspection: normal respiratory effort Auscultation: clear to auscultation bilaterally Cardio: Rate: regular rate and tachycardic Rhythm: regular rhythm Other: Telemetry- SR 92. GI: Auscultation: normal bowel sounds Other: Colostomy with brown stool. Urinary Catheter: Urinary Catheter: patent and draining and urine clear Skin: General skin exam: normal color and no rashes or lesions noted Wounds: no wounds Neuro: General: oriented to person, Normal light touch and pain sensation and Unable to assess gait Cranial nerves: Yes facial sensation intact/muscles of mastication intact and Yes Equal, round and reactive pupils present Speech: normal speech and aphasia Gait exam (Neuro): Unable to assess gait Motor exam (neuro): Abnormal motor strength present (RUE weaker then LT ) Sensory Exam: normal sensation Other: Patient not answering questions but would moan and talk to God asking him to help her. Extrem: General: normal to inspection and no pedal edema Other: no edema right upper extremity swelling noted. PICC line in situ. Psych: Mental Status: mental status grossly normal Affect: normal affect Other: Pleasant. Know she is at the hospital and that is 2024. Objective Data Vital Signs Vital Signs: Vital Signs - 24 hr 04/17/25 16:00 04/17/25 16:00 04/17/25 20:00 Temperature 97.6 F Pulse Rate 88 87 89 Respiratory Rate 18 Blood Pressure 138/65 Pulse Oximetry 100 Oxygen Delivery 04/17/25 20:58 04/18/25 00:00 04/18/25 00:16 Temperature 98.5 F 98.6 F Pulse Rate 89 91 89 Respiratory Rate 16 16 Blood Pressure 161/64 H 146/66 H Pulse Oximetry 99 100 Oxygen Delivery 04/18/25 04:00 04/18/25 05:07 04/18/25 08:00 Temperature 98.0 F Pulse Rate 99 89 Respiratory Rate 16 Blood Pressure 149/64 H Pulse Oximetry 97 Oxygen Delivery Room Air 04/18/25 08:00 Temperature 97.7 F Pulse Rate 85 Respiratory Rate 16 Blood Pressure 148/61 H Pulse Oximetry 97 Oxygen Delivery Intake/Output Intake/Output: Intake & Output 04/15/25 04/16/25 04/17/25 04/18/25 23:59 23:59 23:59 23:59 Intake Total 3015.8 2365 225 450 Output Total 2530 2100 2400 1450 Balance 485.8 822 -5120 -1000 Meds/Results Medications: Active Medications Generic Name Dose Route Start Last Admin Trade Name Freq PRN Reason Stop Dose Admin Acetaminophen 1,000 mg 04/04/25 14:11 04/18/25 09:32 Acetaminophen 500 Mg Tablet PO 1,000 mg Q6H PRN Administration fever or pain 1-3 Albuterol/Ipratropium 3 ml 03/30/25 04:29 03/30/25 05:49 Ipratropium 0.5 Mg/Albuterol Sulfate 2.5 Mg Ampul.Neb 3 Ml INHALATION 3 ml Q6HRT PRN Administration Wheezing Amlodipine Besylate 5 mg 04/10/25 09:00 04/18/25 09:17 Amlodipine Besylate 5 Mg Tablet PO 5 mg DAILY JAYDEN Administration Apixaban 5 mg 04/17/25 21:00 04/18/25 09:18 Apixaban 5 Mg Tablet PO 5 mg Q12HR JAYDEN Administration Ketorolac Tromethamine 15 mg 04/18/25 13:18 Ketorolac 30 Mg/Ml Vial (*Bkc) IV PUSH Q6H PRN Breakthrough Pain Levetiracetam 1,500 mg 04/17/25 09:00 04/18/25 09:18 Levetiracetam 500 Mg Tablet PO 1,500 mg Q12HR JAYDEN Administration Mirtazapine 15 mg 04/14/25 21:00 04/17/25 20:41 Mirtazapine 15 Mg Tablet PO 15 mg HS JAYDEN Administration Naloxone HCl 0.1 mg 03/29/25 00:02 Naloxone Hcl 0.4 Mg/Ml Vial IV PUSH Q2M PRN Opiate Reversal Ondansetron HCl 4 mg 03/26/25 14:08 Ondansetron Inj 4 Mg/2 Ml Vial IV PUSH Q6H PRN Nausea And Vomiting Sertraline HCl 25 mg 04/06/25 18:00 04/18/25 09:17 Sertraline Hcl 25 Mg Tablet PO 25 mg QAM JAYDEN Administration Simethicone 80 mg 04/05/25 17:41 04/15/25 09:13 Simethicone 80 Mg Tab.Chew PO 80 mg QID PRN Administration Gas Discomfort Sodium Chloride 20 ml 03/29/25 09:36 Central Line Flush IV PUSH PRN PRN after blood draws Radiology Results: ITS Impressions Modified Barium Swallow 03/27/25 15:26 IMPRESSION: Oropharyngeal dysphagia with intermittent laryngeal penetration with indeterminate/possible minimal aspiration. Please correlate with speech pathologist findings and specific feeding recommendations. Brain MRI 03/27/25 15:28 IMPRESSION: 1. Normal aging brain with minimal periventricular calcific white matter T2 hyperintensity consistent with chronic small vessel ischemic disease. No acute intracranial process. Cervical Spine MRI 03/28/25 08:39 Impression: Fractured the base of the odontoid process possibly extending from the C2 vertebral body detailed above, most compatible with acute fracture. There is minimal marrow edema and suggestion of possible early cortication along the fracture margins. Alignment appears unchanged as compared to prior CT scans. Anterior fusion of C5 and C6. Moderate to advanced degenerative spondylosis otherwise, as detailed above, with multilevel neural foraminal narrowing. Abdomen X-Ray 04/01/25 10:44 IMPRESSION: 1. Nasogastric tube in the stomach. Chest X-Ray 04/04/25 14:06 IMPRESSION: Inadvertent withdrawal of the previously identified PICC line, which now projects over the right subclavian vein, as detailed above. Venous Doppler Study 04/05/25 11:34 IMPRESSION: 1. Bilateral upper extremity venous thrombosis with deep venous thrombosis of the right subclavian and axillary veins. Head CT 04/10/25 10:35 IMPRESSION: 1. No acute intracranial process. 2. Age-related changes including mild to moderate diffuse volume loss and mild scattered white matter attenuation consistent with chronic small vessel ischemic disease. 3. Chronic left frontal craniotomy. Chest/Abdomen/Pelvis CT 04/10/25 10:37 IMPRESSION: 1. Change of recent partial colectomy with left lower quadrant colostomy. No abscess or bowel obstruction. 2. Mild cardiomegaly. No acute cardiopulmonary disease. 3. Nonobstructing nephrolithiasis. Quality VTE Prophylaxis VTE prophylaxis: pharmacologic ordered Hospitalist [facility] Advance Care Plan I have confirmed that the patient's Advanced Care Plan is present, code status is documented, or surrogate decision maker is listed in patient medical record.: Yes Medication Reconciliation I have utilized all available resources to obtain, update and review the patients current medications (includes all prescriptions, OTC, herbals, cannabis, and nutritional supplements).: Yes
[2025-04-18 14:53] LABS: Basophils Percent Auto 0.4 % (0.2-1.2); Eosinophils Percent Auto 0.4 % (0-4.4); Hematocrit 25.5 % (37.0-47.0); Hemoglobin 7.6 g/dL (12.0-15.0); Immature Granulocyte Absolute 0.01 K/mm3 (0.00-0.031); Immature Granulocyte Percent A 0.4 % (0-0.5); Lymphocytes Absolute Auto 1.01 K/mm3 (0.9-3.2); Lymphocytes Percent Auto 44.5 % (18.3-44.2); Mean Corpuscular HGB Conc 29.8 g/dl (32-36); Mean Corpuscular Hemoglobin 25.2 pg (26-34); Mean Corpuscular Volume 84.7 fl (80-100); Mean Platelet Volume 10.2 fl (7.4-10.4); Monocytes Absolute Auto 0.2 K/mm3 (0.1-0.6); Monocytes Percent Auto 9.3 % (2.6-8.5); Platelet Count Result 185 k/mm3 (150-375); Red Blood Count 3.01 M/mm3 (4.2-5.4); Red Cell Distribution Width 17.3 % (11.5-14.5); White Blood Count 2.3 K/mm3 (4.5-10.0)
[2025-04-18 15:05] LABS: INR 1.2
[2025-04-18 15:06] LABS: Partial Thromboplastin Time 39.7 Seconds (22.3-36.8)
[2025-04-18 15:13] LABS: Alanine Aminotransferase 44 U/L (6-35); Albumin Level 2.9 g/dL (3.5-5.1); Alkaline Phosphatase 246 U/L (38-126); Anion Gap 7 mmol/L (4-12); Aspartate Amino Transferase 50 U/L (14-36); Bilirubin,Total 0.1 mg/dL (0.2-1.3); Blood Urea Nitrogen 7 mg/dL (7-17); Calcium 8.5 mg/dL (8.4-10.2); Carbon Dioxide 25 mmol/L (22-30); Chloride 104 mmol/L (98-107); Estimated CRCL calculation 69 ml/min; Estimated Glomerular Filt Rate > 60; Glucose 156 mg/dL (65-110); Potassium 2.9 mmol/L (3.4-5.0); Sodium 136 mmol/L (137-145); Total Protein 7.2 g/dL (6.3-8.2)
[2025-04-18 15:23] LABS: Atypical Lymphocytes Present; Hypochromasia 1+; Platelet Estimate Adequate (Adequate); Schistocytes None Seen
[2025-04-18] MEDS: POTASSIUM CHLORIDE 20 MEQ PACKET (FOR LIQUID) PO (16:21)
[2025-04-18] MEDS: oxyCODONE HCL (*CRX) 5 MG TAB IR PO (16:21)
[2025-04-18] MEDS: CYCLOBENZAPRINE HCL 5 MG TABLET PO (16:21)
[2025-04-18] MEDS: MAGNESIUM OXIDE 400 MG TABLET PO (16:21)
[2025-04-18] MEDS: POTASSIUM CHLORIDE INJ 40 MEQ in SODIUM CHLORIDE 0.9% IV 500 ML 130 MEQ IVPB (16:22)
[2025-04-18] MEDS: MIRTAZAPINE 15 MG TABLET PO (20:52)
[2025-04-19] VITALS (9 sets, daily range): BP systolic 128–147; BP diastolic 65–80; PULSE 95–108; RESP 14–22; TEMP 36.7–36.9; O2SAT 99–100
--- NOTE | 2025-04-19 07:17 | P.PNIM_ITS ---
Progress Note: A&P Assessment and Plan (1) Dysphagia: Qualifiers: Dysphagia type: oropharyngeal phase Qualified Code(s): R13.12 - Dysphagia, oropharyngeal phase Code(s): R13.10 - Dysphagia, unspecified Status: Acute Assessment and Plan: Speech therapy note from 03/27 showing they recommend minced and moist Level 5. Repeat eval showing patient failed her swallow study 04/01. Speech Therapy following and patient able to be advanced back to minced and moist Level 5. Not taking enough and GTube recommended. Spoke with family and they do not want to proceed with feeding tube. They state the patient has told them she does not want this. With care coordination in the room, I spoke with a dtr in the room and with the POA on the phone. I recommended hospice care since the patient will begin to decline with poor oral intake. They did want to continue anticoagulation. They were intially agreeable to change to DNR status but spoke more with patient and changed back to full code today. --Considering G-tube (2) Decreased oral intake: Code(s): R63.8 - Other symptoms and signs concerning food and fluid intake Status: Acute Assessment and Plan: Mirtazapine increased. Avoiding Megace due to DVT. Encourage oral intake. Family has been trying to assist patient to eat but patient has been refusing even with family. Will try again this weekend. Family also concerned that patient is depressed --Trial of lexapro 5mg daily (3) DVT (deep venous thrombosis): Code(s): I82.409 - Acute embolism and thrombosis of unspecified deep veins of unspecified lower extremity Status: Acute Assessment and Plan: Venous Doppler shows thrombus in the left cephalic and basilic veins and left upper extremity. Despite being on DVT prophylaxis now has DVT right subclavian, axillary and basilic veins likely PICC line associated. Switched to therapeutic Lovenox on 04/05/25. Picc line removed on 04/11/25. Will change to Eliquis today and start 5mg Q12h since been on therapeutic Lovenox (4) Acute respiratory failure: Code(s): J96.00 - Acute respiratory failure, unspecified whether with hypoxia or hypercapnia Status: Acute Assessment and Plan: Acute Respiratory failure secondary to altered mental status and inability to protect airway Patient was intubated and extubated on 03/30; able to be weaned to room air easily Stable and remains on room air. Appears to be protecting her airway but not eating much Avoid sedatives Follow clinically (5) Sepsis: Code(s): A41.9 - Sepsis, unspecified organism Status: Acute Assessment and Plan: Sepsis secondary to bowel perforation, peritonitis UCx negative. BCx negative Treated with Zosyn and has complete a course Sepsis resolved. (6) Perforation bowel: Code(s): K63.1 - Perforation of intestine (nontraumatic) Status: Acute Assessment and Plan: CT A/P 03/28 showing sigmoid diverticulosis with a 6cm cavity consistent with a contained bowel perforation. Gen surgery consulted and she underwent an exploratory laparotomy with sigmoid colon resection with end descending colostomy and an ileal resection with [id number] ileal anastomosis on 03/28/25. Management per General surgery. Surgery okayed to restart lovenox. Antibiotics as above and has completed a course (7) Altered mental status: Code(s): R41.82 - Altered mental status, unspecified Status: Acute Assessment and Plan: Patient presented with altered mental status. Patient also has history of seizure disorder and may have had seizure and be postictal. Other possibilities are sepsis as she had a perforated bowel; rapid response felt secondary to deterioration of mental status from Dilaudid. MRI brain 03/27 showed no acute intracranial process. EEG 03/29 showing nearly continuous focal slow wave activity intermixed with sharp wave transients were seen over left frontal area. This may relate to having previous surgery in this area. Focal slowing is suggestive of underlying structural lesion. Sharp transients are considered nonspecific focal interictal abnormality. Mild background slowing suggestive of generalized encephalopathy. TSH and B12 normal. Ammonia normal Neurology following Repeat EEG 04/14 showing abnormal EEG due to presence of diffuse background slowing suggestive of generalized encephalopathy. No focal or paroxysmal epileptiform abnormality was seen. Patient is awake but confused. She has a hx of SDH and subarachnoid hemorrhage. She may be close to her baseline. (8) C2 cervical fracture: Code(s): S12.100A - Unspecified displaced fracture of second cervical vertebra, initial encounter for closed fracture Status: Inactive Assessment and Plan: Patient had a C2 fracture from a fall in February prior to this admission Patient was evaluated by Neurosurgery. MRI C-spine showed a fracture at the base of the odontoid process possibly extending from the C2 vertebral body, most compatible with acute fracture. There is minimal marrow edema and suggestion of possible early cortication along the fracture margins. Alignment appears unchanged as compared to prior CT scans. Continue C-collar at all times Apprecaite neurosurgery input --New pain and numbness to neck on the right, numbness to right arm. Replaced [place] c-collar --X-ray c-spine. Further imaging pending results --Start flexeril 5mg BID --Oxy 2.5-5mg q4 prn --Defer therapy until imaging complete (9) Seizure disorder: Code(s): G40.909 - Epilepsy, unspecified, not intractable, without status epilepticus Status: Acute Assessment and Plan: History of seizure disorder. Continue Keppra. EEG as above. Neurology following. Change to oral Keppra (10) Anemia: Code(s): D64.9 - Anemia, unspecified Status: Acute Assessment and Plan: 03/30 Hemoglobin 6.2 likely secondary to surgery and hemodilution. No objective evidence of bleeding at this time. Stool is brown Transfused 1 unit PRBC Hgb low but stable in the 7 range. Continue PPI Follow Hgb and transfuse to a stable hgb (11) Depression: Code(s): F32.A - Depression, unspecified Status: Acute Assessment and Plan: Patient with ongoing MDD with lack of motivation Zoloft and then mirtazapine added Continue to monitor mood (12) GI bleed: Code(s): K92.2 - Gastrointestinal hemorrhage, unspecified Status: Acute Assessment and Plan: Brown stool in colostomy General surgery and GI following. Hgb remains stable. Monitor (13) Hypokalemia: Code(s): E87.6 - Hypokalemia Status: Acute Assessment and Plan: Potassium 3.3>2.9 Telemetry Replaced potassium, 40meq & 40IV 04/18 Mag 400mg x2 Continue to monitor. (14) UTI (urinary tract infection): Code(s): N39.0 - Urinary tract infection, site not specified Status: Resolved Assessment and Plan: UA noted. UCx negative. UTI ruled out At risk with chronic Post Plan DVT prophylaxis - SCD, Lovenox Code Status - Full Code Time Spent With Patient Time: 56 minutes Subjective Date/time seen: 04/19/25 07:17 Interval history: Labs improved today. Refused therapy and refusing c-collar sometimes C-spine x-ray No definite acute osseous abnormality cervical spine. C2 is not very clear. Multilevel degenerative disc disease. No neck pain today Hospital course 75yo female with seizures, CAD, HTN and recent C-2 cervical spine type III dens fracture here for AMS. Hospital course complicated by a bowel perforation Review of Systems Review of Systems: All systems reviewed & are unremarkable except as noted in HPI and below ROS unobtainable: Yes unobtainable due to endotracheal tube, unobtainable due to medical condition and unobtainable due to mental status Exam Narrative: Gen - NARD Neck - cervical collar replaced Chest - clear anteriorly except decreased BS in the right flank; nml RR CV - RRR S1/S2. Tele showing occasional PVCs o/w no acute dysrhythmias Abd - Soft, NT. LLQ ostomy secured with liquid brown stool in bag. Midline incision clean and dry Ext - No pedal edema Neuro - Alert and oriented x2 Psych - whispering speech. Skin - Warm and dry Const: General: comfortable, no acute distress, alert and awake Orientation/consciousness: oriented to person Other: Spoke softly, following commands HENMT: Ears: TM's normal bilaterally Face/Nose/Sinus: Normal nares present Mouth: Yes moist mucous membranes Other: C-collar in place Eyes: General: appearance normal, both eyes and all related structures Sclera: sclerae normal Pupils: Equal, round and reactive pupils present Neck: Neck: supple and no JVD Resp: Effort & Inspection: normal respiratory effort Auscultation: clear to auscultation bilaterally Cardio: Rate: regular rate and tachycardic Rhythm: regular rhythm Other: Telemetry- SR 92. GI: Auscultation: normal bowel sounds Other: Colostomy with brown stool. Urinary Catheter: Urinary Catheter: patent and draining and urine clear Skin: General skin exam: normal color and no rashes or lesions noted Wounds: no wounds Neuro: General: oriented to person, Normal light touch and pain sensation and Unable to assess gait Cranial nerves: Yes facial sensation intact/muscles of mastication intact and Yes Equal, round and reactive pupils present Speech: normal speech and aphasia Gait exam (Neuro): Unable to assess gait Motor exam (neuro): Abnormal motor strength present (RUE weaker then LT ) Sensory Exam: normal sensation Other: Patient not answering questions but would moan and talk to God asking him to help her. Extrem: General: normal to inspection and no pedal edema Other: no edema right upper extremity swelling noted. PICC line in situ. Psych: Mental Status: mental status grossly normal Affect: normal affect Other: Pleasant. Know she is at the hospital and that is 2024. Objective Data Vital Signs Vital Signs: Vital Signs - 24 hr 04/18/25 08:00 04/18/25 08:00 04/18/25 12:00 Temperature 97.7 F 97.7 F Pulse Rate 85 83 Respiratory Rate 16 16 Blood Pressure 148/61 H 132/62 Pulse Oximetry 97 100 Oxygen Delivery Room Air 04/18/25 16:00 04/18/25 20:00 04/18/25 21:22 Temperature 97.7 F 98 F Pulse Rate 88 100 101 H Respiratory Rate 16 20 Blood Pressure 136/66 149/86 H Pulse Oximetry 100 100 Oxygen Delivery 04/19/25 00:00 04/19/25 04:00 04/19/25 06:00 Temperature 98.1 F Pulse Rate 100 97 103 H Respiratory Rate 20 Blood Pressure 147/79 H Pulse Oximetry 99 Oxygen Delivery Intake/Output Intake/Output: Intake & Output 04/16/25 04/17/25 04/18/25 04/19/25 23:59 23:59 23:59 23:59 Intake Total 2365 225 780 0 Output Total 2100 2400 1950 250 Balance 265 -2175 -1170 -250 Meds/Results Medications: Active Medications Generic Name Dose Route Start Last Admin Trade Name Freq PRN Reason Stop Dose Admin Acetaminophen 1,000 mg 04/04/25 14:11 04/18/25 09:32 Acetaminophen 500 Mg Tablet PO 1,000 mg Q6H PRN Administration fever or pain 1-3 Albuterol/Ipratropium 3 ml 03/30/25 04:29 03/30/25 05:49 Ipratropium 0.5 Mg/Albuterol Sulfate 2.5 Mg Ampul.Neb 3 Ml INHALATION 3 ml Q6HRT PRN Administration Wheezing Amlodipine Besylate 5 mg 04/10/25 09:00 04/18/25 09:17 Amlodipine Besylate 5 Mg Tablet PO 5 mg DAILY JAYDEN Administration Apixaban 5 mg 04/17/25 21:00 04/18/25 20:52 Apixaban 5 Mg Tablet PO 5 mg Q12HR JAYDEN Administration Cyclobenzaprine HCl 5 mg 04/18/25 16:00 04/18/25 16:21 Cyclobenzaprine Hcl 5 Mg Tablet PO 5 mg Q12HR JAYDEN Administration Escitalopram Oxalate 5 mg 04/19/25 09:00 Escitalopram Oxalate 5 Mg Tablet PO DAILY JAYDEN Ketorolac Tromethamine 15 mg 04/18/25 13:18 Ketorolac 30 Mg/Ml Vial (*Bkc) IV PUSH Q6H PRN Breakthrough Pain Levetiracetam 1,500 mg 04/17/25 09:00 04/18/25 20:51 Levetiracetam 500 Mg Tablet PO 1,500 mg Q12HR JAYDEN Administration Magnesium Oxide 400 mg 04/18/25 15:55 04/18/25 16:21 Magnesium Oxide 400 Mg Tablet PO 04/19/25 09:01 400 mg DAILY JAYDEN Administration Mirtazapine 15 mg 04/14/25 21:00 04/18/25 20:52 Mirtazapine 15 Mg Tablet PO 15 mg HS JAYDEN Administration Naloxone HCl 0.1 mg 03/29/25 00:02 Naloxone Hcl 0.4 Mg/Ml Vial IV PUSH Q2M PRN Opiate Reversal Ondansetron HCl 4 mg 03/26/25 14:08 Ondansetron Inj 4 Mg/2 Ml Vial IV PUSH Q6H PRN Nausea And Vomiting Oxycodone HCl 2.5 mg 04/18/25 14:11 Oxycodone Hcl (*Crx) 2.5 Mg Tab Ir PO Q4H PRN Pain Rated 4-6 Oxycodone HCl 5 mg 04/18/25 14:11 04/18/25 16:21 Oxycodone Hcl (*Crx) 5 Mg Tab Ir PO 5 mg Q4H PRN Administration Pain Rated 7-10 Potassium Chloride 20 meq 04/18/25 17:00 04/18/25 16:21 Potassium Chloride 20 Meq Packet (For Liquid) PO 04/20/25 09:01 20 meq BID JAYDEN Administration Sertraline HCl 25 mg 04/06/25 18:00 04/18/25 09:17 Sertraline Hcl 25 Mg Tablet PO 25 mg QAM JAYDEN Administration Simethicone 80 mg 04/05/25 17:41 04/15/25 09:13 Simethicone 80 Mg Tab.Chew PO 80 mg QID PRN Administration Gas Discomfort Sodium Chloride 20 ml 03/29/25 09:36 Central Line Flush IV PUSH PRN PRN after blood draws Radiology Results: ITS Impressions Modified Barium Swallow 03/27/25 15:26 IMPRESSION: Oropharyngeal dysphagia with intermittent laryngeal penetration with indeterminate/possible minimal aspiration. Please correlate with speech patho logist findings and specific feeding recommendations. Brain MRI 03/27/25 15:28 IMPRESSION: 1. Normal aging brain with minimal periventricular calcific white matter T2 hyperintensity consistent with chronic small vessel ischemic disease. No acute intracranial process. Cervical Spine MRI 03/28/25 08:39 Impression: Fractured the base of the odontoid process possibly extending from the C2 vertebral body detailed above, most compatible with acute fracture. There is minimal marrow edema and suggestion of possible early cortication along the fracture margins. Alignment appears unchanged as compared to prior CT scans. Anterior fusion of C5 and C6. Moderate to advanced degenerative spondylosis otherwise, as detailed above, with multilevel neural foraminal narrowing. Abdomen X-Ray 04/01/25 10:44 IMPRESSION: 1. Nasogastric tube in the stomach. Chest X-Ray 04/04/25 14:06 IMPRESSION: Inadvertent withdrawal of the previously identified PICC line, which now projects over the right subclavian vein, as detailed above. Venous Doppler Study 04/05/25 11:34 IMPRESSION: 1. Bilateral upper extremity venous thrombosis with deep venous thrombosis of the right subclavian and axillary veins. Head CT 04/10/25 10:35 IMPRESSION: 1. No acute intracranial process. 2. Age-related changes including mild to moderate diffuse volume loss and mild scattered white matter attenuation consistent with chronic small vessel ischemic disease. 3. Chronic left frontal craniotomy. Chest/Abdomen/Pelvis CT 04/10/25 10:37 IMPRESSION: 1. Change of recent partial colectomy with left lower quadrant colostomy. No abscess or bowel obstruction. 2. Mild cardiomegaly. No acute cardiopulmonary disease. 3. Nonobstructing nephrolithiasis. Cervical Spine X-Ray 04/18/25 18:30 IMPRESSION: No definite acute osseous abnormality cervical spine. C2 is not very clear. Multilevel degenerative disc disease. Labs Labs: Laboratory Results - last 24 hr 04/18/25 14:46 WBC 2.3 L RBC 3.01 L Hgb 7.6 L Hct 25.5 L MCV 84.7 MCH 25.2 L MCHC 29.8 L RDW 17.3 H Plt Count 185 MPV 10.2 Immature Gran % (Auto) 0.4 Neut % (Auto) 45.0 L Lymph % (Auto) 44.5 H [place] % (Auto) 9.3 H Eos % (Auto) 0.4 Baso % (Auto) 0.4 Lymph # (Auto) 1.01 [place] # (Auto) 0.2 Eos # (Auto) 0.0 Baso # (Auto) 0.0 Abs Immat Gran (auto) 0.01 Absolute Neuts (auto) 1.0 L Absolute Nucleated RBC 0.000 Band Neutrophils % Not Reportable Nucleated RBC % 0.0 Atypical Lymphocytes Present Platelet Estimate Adequate Hypochromasia 1+ Schistocytes None seen PT 15.0 H INR 1.2 APTT 39.7 H Sodium 136 L Potassium 2.9 L Chloride 104 Carbon Dioxide 25 Anion Gap 7 BUN 7 Creatinine 0.58 L Estim Creat Clear Calc 69 Estimated GFR > 60 Glucose 156 H Calcium 8.5 Total Bilirubin 0.1 L AST 50 H ALT 44 H Alkaline Phosphatase 246 H Total Protein 7.2 Albumin 2.9 L Quality VTE Prophylaxis VTE prophylaxis: pharmacologic ordered Hospitalist MIPS Advance Care Plan I have confirmed that the patient's Advanced Care Plan is present, code status is documented, or surrogate decision maker is listed in patient medical record.: Yes Medication Reconciliation I have utilized all available resources to obtain, update and review the patients current medications (includes all prescriptions, OTC, herbals, cannabis, and nutritional supplements).: Yes
[2025-04-19 07:31] LABS: Basophils Percent Auto 0.4 % (0.2-1.2); Eosinophils Percent Auto 0.4 % (0-4.4); Hematocrit 25.4 % (37.0-47.0); Hemoglobin 7.5 g/dL (12.0-15.0); Immature Granulocyte Absolute 0.01 K/mm3 (0.00-0.031); Immature Granulocyte Percent A 0.4 % (0-0.5); Lymphocytes Absolute Auto 1.06 K/mm3 (0.9-3.2); Lymphocytes Percent Auto 45.7 % (18.3-44.2); Mean Corpuscular HGB Conc 29.5 g/dl (32-36); Mean Corpuscular Hemoglobin 25.2 pg (26-34); Mean Corpuscular Volume 85.2 fl (80-100); Mean Platelet Volume 9.8 fl (7.4-10.4); Monocytes Absolute Auto 0.2 K/mm3 (0.1-0.6); Monocytes Percent Auto 9.1 % (2.6-8.5); Platelet Count Result 187 k/mm3 (150-375); Red Blood Count 2.98 M/mm3 (4.2-5.4); Red Cell Distribution Width 17.4 % (11.5-14.5); White Blood Count 2.3 K/mm3 (4.5-10.0)
[2025-04-19 07:46] LABS: Anion Gap 5 mmol/L (4-12); Blood Urea Nitrogen 7 mg/dL (7-17); Calcium 8.4 mg/dL (8.4-10.2); Carbon Dioxide 25 mmol/L (22-30); Chloride 107 mmol/L (98-107); Estimated CRCL calculation 83 ml/min; Estimated Glomerular Filt Rate > 60; Glucose 97 mg/dL (65-110); Magnesium 1.9 mg/dL (1.6-2.3); Phosphorus 2.6 mg/dL (2.5-4.5); Potassium 3.6 mmol/L (3.4-5.0); Sodium 137 mmol/L (137-145)
[2025-04-19 08:27] LABS: Anisocytosis 1+; Hypochromasia 1+; Platelet Estimate Adequate (Adequate)
[2025-04-19 08:28] LABS: Atypical Lymphocytes Present; Schistocytes None Seen
[2025-04-19] MEDS: oxyCODONE HCL (*CRX) 5 MG TAB IR PO ×3 (09:30→20:29)
[2025-04-19] MEDS: CYCLOBENZAPRINE HCL 5 MG TABLET PO ×2 (09:31→21:40)
[2025-04-19] MEDS: ESCITALOPRAM OXALATE 5 MG TABLET PO (09:31)
[2025-04-19] MEDS: APIXABAN 5 MG TABLET PO ×2 (09:32→21:40)
[2025-04-19] MEDS: levETIRAcetam 500 MG TABLET 1500 MG PO ×2 (09:32→21:40)
[2025-04-19] MEDS: amLODIPine BESYLATE 5 MG TABLET PO (09:32)
[2025-04-19] MEDS: SERTRALINE HCL 25 MG TABLET PO (09:32)
[2025-04-19] MEDS: SIMETHICONE 80 MG TAB.CHEW PO (09:32)
[2025-04-19] MEDS: MAGNESIUM OXIDE 400 MG TABLET PO (09:32)
[2025-04-19] MEDS: POTASSIUM CHLORIDE 20 MEQ PACKET (FOR LIQUID) PO ×2 (09:32→18:23)
[2025-04-19] MEDS: MIRTAZAPINE 15 MG TABLET PO (21:40)
[2025-04-20] VITALS (9 sets, daily range): BP systolic 132–138; BP diastolic 73–78; PULSE 97–118; RESP 15–16; TEMP 36.8–37.5; O2SAT 98–100
[2025-04-20] MEDS: oxyCODONE HCL (*CRX) 5 MG TAB IR PO ×4 (03:32→21:37)
[2025-04-20 05:16] LABS: Basophils Percent Auto 0.3 % (0.2-1.2); Eosinophils Percent Auto 0.3 % (0-4.4); Hemoglobin 7.6 g/dL (12.0-15.0); Immature Granulocyte Absolute 0.01 K/mm3 (0.00-0.031); Immature Granulocyte Percent A 0.3 % (0-0.5); Lymphocytes Absolute Auto 0.84 K/mm3 (0.9-3.2); Mean Corpuscular HGB Conc 29.2 g/dl (32-36); Mean Corpuscular Hemoglobin 25.3 pg (26-34); Mean Corpuscular Volume 86.7 fl (80-100); Mean Platelet Volume 10.2 fl (7.4-10.4); Monocytes Absolute Auto 0.2 K/mm3 (0.1-0.6); Monocytes Percent Auto 6.6 % (2.6-8.5); Neutrophils Absolute Auto 1.8 K/mm3 (1.3-6.7); Neutrophils Percent Auto 63.5 % (45.5-73.1); Platelet Count Result 217 k/mm3 (150-375); Red Cell Distribution Width 17.7 % (11.5-14.5); White Blood Count 2.9 K/mm3 (4.5-10.0)
[2025-04-20 05:30] LABS: Anion Gap 6 mmol/L (4-12); Blood Urea Nitrogen 5 mg/dL (7-17); Calcium 8.4 mg/dL (8.4-10.2); Carbon Dioxide 25 mmol/L (22-30); Chloride 103 mmol/L (98-107); Estimated CRCL calculation 87 ml/min; Estimated Glomerular Filt Rate > 60; Glucose 105 mg/dL (65-110); Magnesium 1.9 mg/dL (1.6-2.3); Phosphorus 2.9 mg/dL (2.5-4.5); Potassium 3.4 mmol/L (3.4-5.0); Sodium 134 mmol/L (137-145)
[2025-04-20 05:52] LABS: Platelet Estimate Adequate (Adequate)
[2025-04-20 05:53] LABS: Anisocytosis 2+; Hypochromasia 1+; Poikilocytosis 1+; Schistocytes Rare
--- NOTE | 2025-04-20 07:10 | P.PNIM_ITS ---
Progress Note: A&P Assessment and Plan (1) Dysphagia: Qualifiers: Dysphagia type: oropharyngeal phase Qualified Code(s): R13.12 - Dysphagia, oropharyngeal phase Code(s): R13.10 - Dysphagia, unspecified Status: Acute Assessment and Plan: Speech therapy note from 03/27 showing they recommend minced and moist Level 5. Repeat eval showing patient failed her swallow study 04/01. Speech Therapy following and patient able to be advanced back to minced and moist Level 5. Not taking enough and GTube recommended. Spoke with family and they do not want to proceed with feeding tube. They state the patient has told them she does not want this. With care coordination in the room, I spoke with a dtr in the room and with the POA on the phone. I recommended hospice care since the patient will begin to decline with poor oral intake. They did want to continue anticoagulation. They were intially agreeable to change to DNR status but spoke more with patient and changed back to full code today. --Considering G-tube (2) Decreased oral intake: Code(s): R63.8 - Other symptoms and signs concerning food and fluid intake Status: Acute Assessment and Plan: Failure to thrive Mirtazapine increased. Avoiding Megace due to DVT. Encourage oral intake. Family has been trying to assist patient to eat but patient has been refusing even with family. Will try again this weekend. Family also concerned that patient is depressed --Taking zoloft, consider increasing dose soon. Family concerned about depression (3) DVT (deep venous thrombosis): Code(s): I82.409 - Acute embolism and thrombosis of unspecified deep veins of unspecified lower extremity Status: Acute Assessment and Plan: Venous Doppler shows thrombus in the left cephalic and basilic veins and left upper extremity. Despite being on DVT prophylaxis now has DVT right subclavian, axillary and basilic veins likely PICC line associated. Switched to therapeutic Lovenox on 04/05/25. Picc line removed on 04/11/25. Will change to Eliquis today and start 5mg Q12h since been on therapeutic Lovenox (4) Acute respiratory failure: Code(s): J96.00 - Acute respiratory failure, unspecified whether with hypoxia or hypercapnia Status: Acute Assessment and Plan: Acute Respiratory failure secondary to altered mental status and inability to protect airway Patient was intubated and extubated on 03/30; able to be weaned to room air easily Stable and remains on room air. Appears to be protecting her airway but not eating much Avoid sedatives Follow clinically (5) Sepsis: Code(s): A41.9 - Sepsis, unspecified organism Status: Acute Assessment and Plan: Sepsis secondary to bowel perforation, peritonitis UCx negative. BCx negative Treated with Zosyn and has complete a course Sepsis resolved. (6) Perforation bowel: Code(s): K63.1 - Perforation of intestine (nontraumatic) Status: Acute Assessment and Plan: CT A/P 03/28 showing sigmoid diverticulosis with a 6cm cavity consistent with a contained bowel perforation. Gen surgery consulted and she underwent an exploratory laparotomy with sigmoid colon resection with end descending colostomy and an ileal resection with afgi-ue-taud ileal anastomosis on 03/28/25. Management per General surgery. Surgery okayed to restart lovenox. Antibiotics as above and has completed a course (7) Altered mental status: Code(s): R41.82 - Altered mental status, unspecified Status: Acute Assessment and Plan: Patient presented with altered mental status. Patient also has history of seizure disorder and may have had seizure and be postictal. Other possibilities are sepsis as she had a perforated bowel; rapid response felt secondary to deterioration of mental status from Dilaudid. MRI brain 03/27 showed no acute intracranial process. EEG 03/29 showing nearly continuous focal slow wave activity intermixed with sharp wave transients were seen over left frontal area. This may relate to having previous surgery in this area. Focal slowing is suggestive of underlying structural lesion. Sharp transients are considered nonspecific focal interictal abnormality. Mild background slowing suggestive of generalized encephalopathy. TSH and B12 normal. Ammonia normal Neurology following Repeat EEG 04/14 showing abnormal EEG due to presence of diffuse background slowing suggestive of generalized encephalopathy. No focal or paroxysmal epileptiform abnormality was seen. Patient is awake but confused. She has a hx of SDH and subarachnoid hemorrhage. She may be close to her baseline. (8) C2 cervical fracture: Code(s): S12.100A - Unspecified displaced fracture of second cervical vertebra, initial encounter for closed fracture Status: Inactive Assessment and Plan: Patient had a C2 fracture from a fall in February prior to this admission Patient was evaluated by Neurosurgery. MRI C-spine showed a fracture at the base of the odontoid process possibly extending from the C2 vertebral body, most compatible with acute fracture. There is minimal marrow edema and suggestion of possible early cortication along the fracture margins. Alignment appears unchanged as compared to prior CT scans. Continue C-collar at all times Apprecaite neurosurgery input --New pain and numbness to neck on the right, numbness to right arm. Replaced [place] J c-collar --X-ray c-spine. Further imaging pending results --Start flexeril 5mg BID --Oxy 2.5-5mg q4 prn --Defer therapy until imaging complete (9) Seizure disorder: Code(s): G40.909 - Epilepsy, unspecified, not intractable, without status epilepticus Status: Acute Assessment and Plan: History of seizure disorder. Continue Keppra. EEG as above. Neurology following. Change to oral Keppra (10) Anemia: Code(s): D64.9 - Anemia, unspecified Status: Acute Assessment and Plan: 03/30 Hemoglobin 6.2 likely secondary to surgery and hemodilution. No objective evidence of bleeding at this time. Stool is brown Transfused 1 unit PRBC Hgb low but stable in the 7 range. Continue PPI Follow Hgb and transfuse to a stable hgb (11) Depression: Code(s): F32.A - Depression, unspecified Status: Acute Assessment and Plan: Patient with ongoing MDD with lack of motivation Zoloft and then mirtazapine added, consider increasing zoloft Continue to monitor mood (12) GI bleed: Code(s): K92.2 - Gastrointestinal hemorrhage, unspecified Status: Acute Assessment and Plan: Brown stool in colostomy General surgery and GI following. Hgb remains stable. Monitor (13) Hypokalemia: Code(s): E87.6 - Hypokalemia Status: Acute Assessment and Plan: Potassium 3.3>2.9 Telemetry Replaced potassium, 40meq & 40IV 04/18, 20meq 04/20 for 3.4 Mag 400mg x2. 1.9 Add mag 200mg hs and monitor intermittently (14) UTI (urinary tract infection): Code(s): N39.0 - Urinary tract infection, site not specified Status: Resolved Assessment and Plan: UA noted. UCx negative. UTI ruled out At risk with chronic Post (15) Goals of care, counseling/discussion: Code(s): Z71.89 - Other specified counseling Status: Acute Assessment and Plan: Family initially considering hospice but after further discussion with family, they are planning to see how she is eating over the weekend and then decide if she needs a G-tube --Patient declined hospice. Patient confused, but family would like to honor her wishes --Patient is a full code --Calorie count and consider G-tube --Increase activity/PT but patient has been refusing at times --Sometimes refuses to wear c-collar Plan DVT prophylaxis - SCD, Lovenox Code Status - Full Code Time Spent With Patient Time: 56 minutes Subjective Date/time seen: 04/20/25 07:10 Interval history: Potassium 3.4 20meq Eating minimally. Starting a calorie count Reported abdominal pain earlier but not when I saw her. Denied neck pain Not wearing c-collar most of the time Hospital course 75yo female with seizures, CAD, HTN and recent C-2 cervical spine type III dens fracture here for AMS. Hospital course complicated by a bowel perforation. Initially agreeable to hospice but family changed course after speaking with patient while she was more lucid, but still confused. Trialling a diet over the weekend and will consider a feeding tube Review of Systems Review of Systems: All systems reviewed & are unremarkable except as noted in HPI and below ROS unobtainable: Yes unobtainable due to endotracheal tube, unobtainable due to medical condition and unobtainable due to mental status Exam Narrative: Gen - NARD Neck - cervical collar replaced Chest - clear anteriorly except decreased BS in the right flank; nml RR CV - RRR S1/S2. Tele showing occasional PVCs o/w no acute dysrhythmias Abd - Soft, NT. LLQ ostomy secured with liquid brown stool in bag. Midline incision clean and dry Ext - No pedal edema Neuro - Alert and oriented x1 Psych - pleasant, but minimally participatory Skin - Warm and dry, no wounds or rashes Objective Data Vital Signs Vital Signs: Vital Signs - 24 hr 04/19/25 08:00 04/19/25 12:00 04/19/25 14:00 Temperature 98.1 F Pulse Rate 95 105 H 103 H Respiratory Rate 22 H Blood Pressure 134/65 Pulse Oximetry 100 04/19/25 16:00 04/19/25 20:00 06/14/25 20:58 Temperature 98.4 F Pulse Rate 101 H 108 H 101 H Respiratory Rate 14 Blood Pressure 128/80 Pulse Oximetry 100 04/20/25 00:00 04/20/25 04:00 Temperature Pulse Rate 102 H 97 Respiratory Rate Blood Pressure Pulse Oximetry Intake/Output Intake/Output: Intake & Output 04/17/25 04/18/25 04/19/25 04/20/25 23:59 23:59 23:59 23:59 Intake Total 835 930 7703 Output Total 2400 1950 250 Balance -2175 -1170 1190 Meds/Results Medications: Active Medications Generic Name Dose Route Start Last Admin Trade Name Freq PRN Reason Stop Dose Admin Acetaminophen 1,000 mg 04/04/25 14:11 04/18/25 09:32 Acetaminophen 500 Mg Tablet PO 1,000 mg Q6H PRN Administration fever or pain 1-3 Albuterol/Ipratropium 3 ml 03/30/25 04:29 03/30/25 05:49 Ipratropium 0.5 Mg/Albuterol Sulfate 2.5 Mg Ampul.Neb 3 Ml INHALATION 3 ml Q6HRT PRN Administration Wheezing Amlodipine Besylate 5 mg 04/10/25 09:00 04/19/25 09:32 Amlodipine Besylate 5 Mg Tablet PO 5 mg DAILY JAYDEN Administration Apixaban 5 mg 04/17/25 21:00 04/19/25 21:40 Apixaban 5 Mg Tablet PO 5 mg Q12HR JAYDEN Administration Cyclobenzaprine HCl 5 mg 04/18/25 16:00 04/19/25 21:40 Cyclobenzaprine Hcl 5 Mg Tablet PO 5 mg Q12HR JAYDEN Administration Escitalopram Oxalate 5 mg 04/19/25 09:00 04/19/25 09:31 Escitalopram Oxalate 5 Mg Tablet PO 5 mg DAILY JAYDEN Administration Ketorolac Tromethamine 15 mg 04/18/25 13:18 Ketorolac 30 Mg/Ml Vial (*Bkc) IV PUSH Q6H PRN Breakthrough Pain Levetiracetam 1,500 mg 04/17/25 09:00 04/19/25 21:40 Levetiracetam 500 Mg Tablet PO 1,500 mg Q12HR JAYDEN Administration Mirtazapine 15 mg 04/14/25 21:00 04/19/25 21:40 Mirtazapine 15 Mg Tablet PO 15 mg HS JAYDEN Administration Naloxone HCl 0.1 mg 03/29/25 00:02 Naloxone Hcl 0.4 Mg/Ml Vial IV PUSH Q2M PRN Opiate Reversal Ondansetron HCl 4 mg 03/26/25 14:08 Ondansetron Inj 4 Mg/2 Ml Vial IV PUSH Q6H PRN Nausea And Vomiting Oxycodone HCl 2.5 mg 04/18/25 14:11 Oxycodone Hcl (*Crx) 2.5 Mg Tab Ir PO Q4H PRN Pain Rated 4-6 Oxycodone HCl 5 mg 04/18/25 14:11 04/20/25 03:32 Oxycodone Hcl (*Crx) 5 Mg Tab Ir PO 5 mg Q4H PRN Administration Pain Rated 7-10 Potassium Chloride 20 meq 04/18/25 17:00 04/19/25 18:23 Potassium Chloride 20 Meq Packet (For Liquid) PO 04/20/25 09:01 20 meq BID JAYDEN Administration Sertraline HCl 25 mg 04/06/25 18:00 04/19/25 09:32 Sertraline Hcl 25 Mg Tablet PO 25 mg QAM JAYDEN Administration Simethicone 80 mg 04/05/25 17:41 04/19/25 09:32 Simethicone 80 Mg Tab.Chew PO 80 mg QID PRN Administration Gas Discomfort Sodium Chloride 20 ml 03/29/25 09:36 Central Line Flush IV PUSH PRN PRN after blood draws Radiology Results: ITS Impressions Modified Barium Swallow 03/27/25 15:26 IMPRESSION: Oropharyngeal dysphagia with intermittent laryngeal penetration with indeterminate/possible minimal aspiration. Please correlate with speech pathologist findings and specific feeding recommendations. Brain MRI 03/27/25 15:28 IMPRESSION: 1. Normal aging brain with minimal periventricular calcific white matter T2 hyperintensity consistent with chronic small vessel ischemic disease. No acute intracranial process. Cervical Spine MRI 03/28/25 08:39 Impression: Fractured the base of the odontoid process possibly extending from the C2 vertebral body detailed above, most compatible with acute fracture. There is minimal marrow edema and suggestion of possible early cortication along the fracture margins. Alignment appears unchanged as compared to prior CT scans. Anterior fusion of C5 and C6. Moderate to advanced degenerative spondylosis otherwise, as detailed above, with multilevel neural foraminal narrowing. Abdomen X-Ray 04/01/25 10:44 IMPRESSION: 1. Nasogastric tube in the stomach. Chest X-Ray 04/04/25 14:06 IMPRESSION: Inadvertent withdrawal of the previously identified PICC line, which now projects over the right subclavian vein, as detailed above. Venous Doppler Study 04/05/25 11:34 IMPRESSION: 1. Bilateral upper extremity venous thrombosis with deep venous thrombosis of the right subclavian and axillary veins. Head CT 04/10/25 10:35 IMPRESSION: 1. No acute intracranial process. 2. Age-related changes including mild to moderate diffuse volume loss and mild scattered white matter attenuation consistent with chronic small vessel ischemic disease. 3. Chronic left frontal craniotomy. Chest/Abdomen/Pelvis CT 04/10/25 10:37 IMPRESSION: 1. Change of recent partial colectomy with left lower quadrant colostomy. No abscess or bowel obstruction. 2. Mild cardiomegaly. No acute cardiopulmonary disease. 3. Nonobstructing nephrolithiasis. Cervical Spine X-Ray 04/18/25 18:30 IMPRESSION: No definite acute osseous abnormality cervical spine. C2 is not very clear. Multilevel degenerative disc disease. Labs Labs: Laboratory Results - last 24 hr 04/19/25 04/20/25 07:26 04:52 WBC 2.3 L 2.9 L RBC 2.98 L 3.00 L Hgb 7.5 L 7.6 L Hct 25.4 L 26.0 L MCV 85.2 86.7 MCH 25.2 L 25.3 L MCHC 29.5 L 29.2 L RDW 17.4 H 17.7 H Plt Count 187 217 MPV 9.8 10.2 Immature Gran % (Auto) 0.4 0.3 Neut % (Auto) 44.0 L 63.5 Lymph % (Auto) 45.7 H 29.0 [place] % (Auto) 9.1 H 6.6 Eos % (Auto) 0.4 0.3 Baso % (Auto) 0.4 0.3 Lymph # (Auto) 1.06 0.84 L [place] # (Auto) 0.2 0.2 Eos # (Auto) 0.0 0.0 Baso # (Auto) 0.0 0.0 Abs Immat Gran (auto) 0.01 0.01 Absolute Neuts (auto) 1.0 L 1.8 Absolute Nucleated RBC 0.000 0.000 Band Neutrophils % Not Reportable Not Reportable Nucleated RBC % 0.0 0.0 Atypical Lymphocytes Present Platelet Estimate Adequate Adequate Hypochromasia 1+ 1+ Poikilocytosis 1+ Anisocytosis 1+ 2+ Schistocytes None seen Rare Sodium 137 134 L Potassium 3.6 3.4 Chloride 107 103 Carbon Dioxide 25 25 Anion Gap 5 6 BUN 7 5 L Creatinine 0.47 L 0.45 L Estim Creat Clear Calc 83 87 Estimated GFR > 60 > 60 Glucose 97 105 Calcium 8.4 8.4 Phosphorus 2.6 2.9 Magnesium 1.9 1.9 Quality VTE Prophylaxis VTE prophylaxis: pharmacologic ordered Hospitalist MIPS Advance Care Plan I have confirmed that the patient's Advanced Care Plan is present, code status is documented, or surrogate decision maker is listed in patient medical record.: Yes Medication Reconciliation I have utilized all available resources to obtain, update and review the patients current medications (includes all prescriptions, OTC, herbals, cannabis, and nutritional supplements).: Yes
[2025-04-20] MEDS: APIXABAN 5 MG TABLET PO ×2 (08:32→21:37)
[2025-04-20] MEDS: ESCITALOPRAM OXALATE 5 MG TABLET PO (08:32)
[2025-04-20] MEDS: levETIRAcetam 500 MG TABLET 1500 MG PO ×2 (08:32→21:37)
[2025-04-20] MEDS: SERTRALINE HCL 25 MG TABLET PO (08:32)
[2025-04-20] MEDS: amLODIPine BESYLATE 5 MG TABLET PO (08:32)
[2025-04-20] MEDS: CYCLOBENZAPRINE HCL 5 MG TABLET PO ×2 (08:32→21:37)
[2025-04-20] MEDS: POTASSIUM CHLORIDE 20 MEQ PACKET (FOR LIQUID) PO ×2 (08:35→08:36)
[2025-04-20] MEDS: MIRTAZAPINE 15 MG TABLET PO (21:37)
[2025-04-20] MEDS: MAGNESIUM OXIDE 200 MG TABLET PO (21:37)
[2025-04-21] VITALS (10 sets, daily range): BP systolic 117–137; BP diastolic 68–71; PULSE 89–119; RESP 12–17; TEMP 36.8–37.8; O2SAT 97–100
[2025-04-21 05:15] LABS: Basophils Percent Auto 0.3 % (0.2-1.2); Hemoglobin 7.6 g/dL (12.0-15.0); Immature Granulocyte Absolute 0.02 K/mm3 (0.00-0.031); Immature Granulocyte Percent A 0.6 % (0-0.5); Lymphocytes Percent Auto 25.1 % (18.3-44.2); Mean Corpuscular HGB Conc 29.2 g/dl (32-36); Mean Corpuscular Hemoglobin 25.2 pg (26-34); Mean Corpuscular Volume 86.4 fl (80-100); Mean Platelet Volume 10.1 fl (7.4-10.4); Monocytes Absolute Auto 0.3 K/mm3 (0.1-0.6); Monocytes Percent Auto 8.1 % (2.6-8.5); Neutrophils Absolute Auto 2.4 K/mm3 (1.3-6.7); Neutrophils Percent Auto 65.9 % (45.5-73.1); Platelet Count Result 239 k/mm3 (150-375); Red Blood Count 3.01 M/mm3 (4.2-5.4); Red Cell Distribution Width 17.6 % (11.5-14.5); White Blood Count 3.6 K/mm3 (4.5-10.0)
[2025-04-21 05:22] LABS: Anion Gap 9 mmol/L (4-12); Blood Urea Nitrogen 8 mg/dL (7-17); Calcium 8.4 mg/dL (8.4-10.2); Carbon Dioxide 22 mmol/L (22-30); Chloride 102 mmol/L (98-107); Estimated CRCL calculation 79 ml/min; Estimated Glomerular Filt Rate > 60; Glucose 97 mg/dL (65-110); Phosphorus 3.3 mg/dL (2.5-4.5); Potassium 3.7 mmol/L (3.4-5.0); Sodium 133 mmol/L (137-145)
[2025-04-21 05:35] LABS: Hypochromasia 2+; Platelet Estimate Adequate (Adequate)
[2025-04-21 05:36] LABS: Anisocytosis 2+; Ovalocytes 1+
[2025-04-21 05:37] LABS: Poikilocytosis 1+; Schistocytes Rare
[2025-04-21] MEDS: oxyCODONE HCL (*CRX) 2.5 MG TAB IR PO ×2 (08:18→16:11)
[2025-04-21] MEDS: APIXABAN 5 MG TABLET PO (08:19)
[2025-04-21] MEDS: CYCLOBENZAPRINE HCL 5 MG TABLET PO ×2 (08:19→20:32)
[2025-04-21] MEDS: amLODIPine BESYLATE 5 MG TABLET PO (08:19)
[2025-04-21] MEDS: SERTRALINE HCL 25 MG TABLET PO (08:19)
[2025-04-21] MEDS: levETIRAcetam 500 MG TABLET 1500 MG PO ×2 (08:19→20:32)
--- NOTE | 2025-04-21 11:50 | PM.IMPN ---
Progress Note: A&P Assessment and Plan (1) Dysphagia: Qualifiers: Dysphagia type: oropharyngeal phase Qualified Code(s): R13.12 - Dysphagia, oropharyngeal phase Code(s): R13.10 - Dysphagia, unspecified Status: Acute Assessment and Plan: Speech therapy note from 03/27 showing they recommend minced and moist Level 5. Repeat eval showing patient failed her swallow study 04/01. Speech Therapy following and patient able to be advanced back to minced and moist Level 5. Not taking enough and GTube recommended. Spoke with family and they do not want to proceed with feeding tube. They state the patient has told them she does not want this. patient reversed DNR last week to full code Daughter noted that patient they will meet as s a family and decide abotu GI tube today awaiting their decision (2) Decreased oral intake: Code(s): R63.8 - Other symptoms and signs concerning food and fluid intake Status: Acute Assessment and Plan: Failure to thrive Mirtazapine increased. Avoiding Megace due to DVT. Encourage oral intake. For possible G tube pending family's decision (3) DVT (deep venous thrombosis): Code(s): I82.409 - Acute embolism and thrombosis of unspecified deep veins of unspecified lower extremity Status: Acute Assessment and Plan: Venous Doppler shows thrombus in the left cephalic and basilic veins and left upper extremity. Despite being on DVT prophylaxis now has DVT right subclavian, axillary and basilic veins likely PICC line associated. Switched to therapeutic Lovenox on 04/05/25. Picc line removed on 04/11/25. Will change to Eliquis today and start 5mg Q12h since been on therapeutic Lovenox (4) Acute respiratory failure: Code(s): J96.00 - Acute respiratory failure, unspecified whether with hypoxia or hypercapnia Status: Acute Assessment and Plan: Acute Respiratory failure secondary to altered mental status and inability to protect airway Patient was intubated and extubated on 03/30; able to be weaned to room air easily Stable and remains on room air. Appears to be protecting her airway but not eating much Avoid sedatives Follow clinically (5) Sepsis: Code(s): A41.9 - Sepsis, unspecified organism Status: Acute Assessment and Plan: Sepsis secondary to bowel perforation, peritonitis UCx negative. BCx negative Treated with Zosyn and has complete a course Sepsis resolved. (6) Perforation bowel: Code(s): K63.1 - Perforation of intestine (nontraumatic) Status: Acute Assessment and Plan: CT A/P 03/28 showing sigmoid diverticulosis with a 6cm cavity consistent with a contained bowel perforation. Gen surgery consulted and she underwent an exploratory laparotomy with sigmoid colon resection with end descending colostomy and an ileal resection with [id number] ileal anastomosis on 03/28/25. Management per General surgery. Surgery okayed to restart lovenox. Antibiotics as above and has completed a course (7) Altered mental status: Code(s): R41.82 - Altered mental status, unspecified Status: Acute Assessment and Plan: Patient presented with altered mental status. Patient also has history of seizure disorder and may have had seizure and be postictal. Other possibilities are sepsis as she had a perforated bowel; rapid response felt secondary to deterioration of mental status from Dilaudid. MRI brain 03/27 showed no acute intracranial process. EEG 03/29 showing nearly continuous focal slow wave activity intermixed with sharp wave transients were seen over left frontal area. This may relate to having previous surgery in this area. Focal slowing is suggestive of underlying structural lesion. Sharp transients are considered nonspecific focal interictal abnormality. Mild background slowing suggestive of generalized encephalopathy. TSH and B12 normal. Ammonia normal Neurology following Repeat EEG 04/14 showing abnormal EEG due to presence of diffuse background slowing suggestive of generalized encephalopathy. No focal or paroxysmal epileptiform abnormality was seen. Patient is awake but confused. She has a hx of SDH and subarachnoid hemorrhage. She may be close to her baseline. (8) C2 cervical fracture: Code(s): S12.100A - Unspecified displaced fracture of second cervical vertebra, initial encounter for closed fracture Status: Inactive Assessment and Plan: Patient had a C2 fracture from a fall in February prior to this admission Patient was evaluated by Neurosurgery. MRI C-spine showed a fracture at the base of the odontoid process possibly extending from the C2 vertebral body, most compatible with acute fracture. There is minimal marrow edema and suggestion of possible early cortication along the fracture margins. Alignment appears unchanged as compared to prior CT scans. No neurosurgery documentation seen on chart review i have reconsulted Neurosurgery continue PRN pain control (9) Seizure disorder: Code(s): G40.909 - Epilepsy, unspecified, not intractable, without status epilepticus Status: Acute Assessment and Plan: History of seizure disorder. Continue Keppra. EEG as above. Neurology following. Change to oral Keppra (10) Anemia: Code(s): D64.9 - Anemia, unspecified Status: Acute Assessment and Plan: 03/30 Hemoglobin 6.2 likely secondary to surgery and hemodilution. No objective evidence of bleeding at this time. Stool is brown Transfused 1 unit PRBC Hgb low but stable in the 7 range. Continue PPI Follow Hgb and transfuse to a stable hgb (11) Depression: Code(s): F32.A - Depression, unspecified Status: Acute Assessment and Plan: Patient with ongoing MDD with lack of motivation Zoloft and then mirtazapine added, consider increasing zoloft Continue to monitor mood (12) GI bleed: Code(s): K92.2 - Gastrointestinal hemorrhage, unspecified Status: Acute Assessment and Plan: Brown stool in colostomy General surgery and GI following. Hgb remains stable. Iron panel pending Monitor (13) Hypokalemia: Code(s): E87.6 - Hypokalemia Status: Acute Assessment and Plan: Potassium 3.3>2.9 replaced, monitor (14) UTI (urinary tract infection): Code(s): N39.0 - Urinary tract infection, site not specified Status: Resolved Assessment and Plan: UA noted. UCx negative. UTI ruled out At risk with chronic Post (15) Goals of care, counseling/discussion: Code(s): Z71.89 - Other specified counseling Status: Acute Assessment and Plan: Family initially considering hospice but after further discussion with family, they are planning to see how she is eating over the weekend and then decide if she needs a G-tube --Patient declined hospice. Patient confused, but family would like to honor her wishes --Patient is a full code awaiting G tube deicision today Plan DVT prophylaxis - SCD, Lovenox Code Status - Full Code Subjective Date/time seen: 04/21/25 11:50 Interval history: Patient comfortable at bedside Discussed with daughter at bedside and she noted that they will discussed G tube with family and decide about that today Review of Systems Review of Systems: All systems reviewed & are unremarkable except as noted in HPI and below ROS unobtainable: Yes unobtainable due to endotracheal tube, unobtainable due to medical condition and unobtainable due to mental status Exam Narrative: Gen - NARD Neck - cervical collar replaced Chest - clear anteriorly except decreased BS in the right flank; nml RR CV - RRR S1/S2. Tele showing occasional PVCs o/w no acute dysrhythmias Abd - Soft, NT. LLQ ostomy secured with liquid brown stool in bag. Midline incision clean and dry Ext - No pedal edema Neuro - Alert and oriented x1 Psych - pleasant, but minimally participatory Skin - Warm and dry, no wounds or rashes Const: General: comfortable, no acute distress, alert and awake Orientation/consciousness: oriented to person Other: Spoke softly, following commands HENMT: Ears: TM's normal bilaterally Face/Nose/Sinus: Normal nares present Mouth: Yes moist mucous membranes Other: C-collar in place Eyes: General: appearance normal, both eyes and all related structures Sclera: sclerae normal Pupils: Equal, round and reactive pupils present Neck: Neck: supple and no JVD Resp: Effort & Inspection: normal respiratory effort Auscultation: clear to auscultation bilaterally Cardio: Rate: regular rate and tachycardic Rhythm: regular rhythm Other: Telemetry- SR 92. GI: Auscultation: normal bowel sounds Other: Colostomy with brown stool. Urinary Catheter: Urinary Catheter: patent and draining and urine clear Skin: General skin exam: normal color and no rashes or lesions noted Wounds: no wounds Neuro: General: oriented to person, Normal light touch and pain sensation and Unable to assess gait Cranial nerves: Yes facial sensation intact/muscles of mastication intact and Yes Equal, round and reactive pupils present Speech: normal speech and aphasia Gait exam (Neuro): Unable to assess gait Motor exam (neuro): Abnormal motor strength present (RUE weaker then LT ) Sensory Exam: normal sensation Other: Patient not answering questions but would moan and talk to God asking him to help her. Extrem: General: normal to inspection and no pedal edema Other: no edema right upper extremity swelling noted. PICC line in situ. Psych: Mental Status: mental status grossly normal Affect: normal affect Other: Pleasant. Know she is at the hospital and that is 2024. Objective Data Vital Signs Vital Signs: Vital Signs - 24 hr 04/20/25 12:08 04/20/25 16:00 04/20/25 16:14 Temperature 98.2 F Pulse Rate 113 H 115 H 118 H Respiratory Rate 15 Blood Pressure 134/75 Pulse Oximetry 98 Oxygen Delivery Fraction of Inspired Oxygen 04/20/25 20:00 04/20/25 20:00 04/20/25 21:20 Temperature 99.5 F Pulse Rate 114 H 112 H 112 H Respiratory Rate 16 16 Blood Pressure 132/78 Pulse Oximetry 100 100 Oxygen Delivery Room Air Fraction of Inspired Oxygen 21 04/21/25 00:00 04/21/25 04:00 04/21/25 06:00 Temperature Pulse Rate 113 H 110 H Respiratory Rate 16 Blood Pressure Pulse Oximetry Oxygen Delivery Fraction of Inspired Oxygen Intake/Output Intake/Output: Intake & Output 04/18/25 04/19/25 04/20/25 04/21/25 23:59 23:59 23:59 23:59 Intake Total 780 1440 510 50 Output Total 1950 250 850 Balance -1170 1190 -340 50 Meds/Results Medications: Active Medications Generic Name Dose Route Start Last Admin Trade Name Freq PRN Reason Stop Dose Admin Acetaminophen 1,000 mg 04/04/25 14:11 04/18/25 09:32 Acetaminophen 500 Mg Tablet PO 1,000 mg Q6H PRN Administration fever or pain 1-3 Albuterol/Ipratropium 3 ml 03/30/25 04:29 03/30/25 05:49 Ipratropium 0.5 Mg/Albuterol Sulfate 2.5 Mg Ampul.Neb 3 Ml INHALATION 3 ml Q6HRT PRN Administration Wheezing Amlodipine Besylate 5 mg 04/10/25 09:00 04/21/25 08:19 Amlodipine Besylate 5 Mg Tablet PO 5 mg DAILY JAYDEN Administration Apixaban 5 mg 04/17/25 21:00 04/21/25 08:19 Apixaban 5 Mg Tablet PO 5 mg Q12HR JAYDEN Administration Cyclobenzaprine HCl 5 mg 04/18/25 16:00 04/21/25 08:19 Cyclobenzaprine Hcl 5 Mg Tablet PO 5 mg Q12HR JAYDEN Administration Ketorolac Tromethamine 15 mg 04/18/25 13:18 Ketorolac 30 Mg/Ml Vial (*Bkc) IV PUSH Q6H PRN Breakthrough Pain Levetiracetam 1,500 mg 04/17/25 09:00 04/21/25 08:19 Levetiracetam 500 Mg Tablet PO 1,500 mg Q12HR JAYDEN Administration Magnesium Oxide 200 mg 04/20/25 21:00 04/20/25 21:37 Magnesium Oxide 200 Mg Tablet PO 200 mg HS JAYDEN Administration Mirtazapine 15 mg 04/14/25 21:00 04/20/25 21:37 Mirtazapine 15 Mg Tablet PO 15 mg HS JAYDEN Administration Naloxone HCl 0.1 mg 03/29/25 00:02 Naloxone Hcl 0.4 Mg/Ml Vial IV PUSH Q2M PRN Opiate Reversal Ondansetron HCl 4 mg 03/26/25 14:08 Ondansetron Inj 4 Mg/2 Ml Vial IV PUSH Q6H PRN Nausea And Vomiting Oxycodone HCl 2.5 mg 04/18/25 14:11 04/21/25 08:18 Oxycodone Hcl (*Crx) 2.5 Mg Tab Ir PO 2.5 mg Q4H PRN Administration Pain Rated 4-6 Oxycodone HCl 5 mg 04/18/25 14:11 04/20/25 21:37 Oxycodone Hcl (*Crx) 5 Mg Tab Ir PO 5 mg Q4H PRN Administration Pain Rated 7-10 Sertraline HCl 25 mg 04/06/25 18:00 04/21/25 08:19 Sertraline Hcl 25 Mg Tablet PO 25 mg QAM JAYDEN Administration Simethicone 80 mg 04/05/25 17:41 04/19/25 09:32 Simethicone 80 Mg Tab.Chew PO 80 mg QID PRN Administration Gas Discomfort Sodium Chloride 20 ml 03/29/25 09:36 Central Line Flush IV PUSH PRN PRN after blood draws Radiology Results: ITS Impressions Modified Barium Swallow 03/27/25 15:26 IMPRESSION: Oropharyngeal dysphagia with intermittent laryngeal penetration with indeterminate/possible minimal aspiration. Please correlate with speech pathologist findings and specific feeding recommendations. Brain MRI 03/27/25 15:28 IMPRESSION: 1. Normal aging brain with minimal periventricular calcific white matter T2 hyperintensity consistent with chronic small vessel ischemic disease. No acute intracranial process. Cervical Spine MRI 03/28/25 08:39 Impression: Fractured the base of the odontoid process possibly extending from the C2 vertebral body detailed above, most compatible with acute fracture. There is minimal marrow edema and suggestion of possible early cortication along the fracture margins. Alignment appears unchanged as compared to prior CT scans. Anterior fusion of C5 and C6. Moderate to advanced degenerative spondylosis otherwise, as detailed above, with multilevel neural foraminal narrowing. Abdomen X-Ray 04/01/25 10:44 IMPRESSION: 1. Nasogastric tube in the stomach. Chest X-Ray 04/04/25 14:06 IMPRESSION: Inadvertent withdrawal of the previously identified PICC line, which now projects over the right subclavian vein, as detailed above. Venous Doppler Study 04/05/25 11:34 IMPRESSION: 1. Bilateral upper extremity venous thrombosis with deep venous thrombosis of the right subclavian and axillary veins. Head CT 04/10/25 10:35 IMPRESSION: 1. No acute intracranial process. 2. Age-related changes including mild to moderate diffuse volume loss and mild scattered white matter attenuation consistent with chronic small vessel ischemic disease. 3. Chronic left frontal craniotomy. Chest/Abdomen/Pelvis CT 04/10/25 10:37 IMPRESSION: 1. Change of recent partial colectomy with left lower quadrant colostomy. No abscess or bowel obstruction. 2. Mild cardiomegaly. No acute cardiopulmonary disease. 3. Nonobstructing nephrolithiasis. Cervical Spine X-Ray 04/18/25 18:30 IMPRESSION: No definite acute osseous abnormality cervical spine. C2 is not very clear. Multilevel degenerative disc disease. Labs Labs: Laboratory Results - last 24 hr 04/21/25 04:29 WBC 3.6 L RBC 3.01 L Hgb 7.6 L Hct 26.0 L MCV 86.4 MCH 25.2 L MCHC 29.2 L RDW 17.6 H Plt Count 239 MPV 10.1 Immature Gran % (Auto) 0.6 H Neut % (Auto) 65.9 Lymph % (Auto) 25.1 [place] % (Auto) 8.1 Eos % (Auto) 0.0 Baso % (Auto) 0.3 Lymph # (Auto) 0.90 [place] # (Auto) 0.3 Eos # (Auto) 0.0 Baso # (Auto) 0.0 Abs Immat Gran (auto) 0.02 Absolute Neuts (auto) 2.4 Absolute Nucleated RBC 0.000 Band Neutrophils % Not Reportable Nucleated RBC % 0.0 Platelet Estimate Adequate Hypochromasia 2+ Poikilocytosis 1+ Anisocytosis 2+ Ovalocytes 1+ Schistocytes Rare Sodium 133 L Potassium 3.7 Chloride 102 Carbon Dioxide 22 Anion Gap 9 BUN 8 Creatinine 0.50 L Estim Creat Clear Calc 79 Estimated GFR > 60 Glucose 97 Calcium 8.4 Phosphorus 3.3 Magnesium 2.0 Quality VTE Prophylaxis VTE prophylaxis: pharmacologic ordered
--- NOTE | 2025-04-21 12:35 | PCNFU ---
Nutrition Follow-Up Complete: Inadequate energy intake related to altered GI function, mechanical ventilation as evidenced by NPO Meet estimated nutrition needs when medically able -Progressing slowly Goal: Pt current nutrition is Minced & moist L5, Regular, Ensure Enlice TID (350 kcal, 20 g protein). Nutrition recommendation: Continue with current diet orders. If PEG tube feeding is needed, recommend Jevity 1.5 @ goal rate 55 ml/h: 1815 kcal, 77 g protein, 920 ml free water. Flush 150 ml q 4 h. Total water 1820 ml/d. 3-day Calorie count in progress. Last recorded weight is 77.7 kg. Bowel Motility: +2 BMs 04/18 Labs Reviewed: Hgb 7.6, Hct 26, Na 133, BUN 5, Cre 0.5 Meds Noted: Zofran, remeron, mag-ox Skin: No skin issues Additional Notes: Per MD notes and RN, pt family now considering PEG tube because of poor intake. Family to make decision today. Intakes remain very poor 0-25% on regular MM5, with some intake of Ensure noted. Monitoring orders, plan of care, weights, labs, output Daily in rounds. Follow up in 3 days
--- NOTE | 2025-04-21 17:16 | WPDGIPROGNO ---
Progress Note: A&P Assessment and Plan (1) Anorexia: Code(s): R63.0 - Anorexia Status: Acute Assessment and Plan: will place g-tube tomorrow, hold eliquis and will get ancef before peg family spoke with primary team (2) Altered mental status: Code(s): R41.82 - Altered mental status, unspecified Status: Acute (3) Aphasia: Code(s): R47.01 - Aphasia Status: Resolved (4) Dysphagia: Qualifiers: Dysphagia type: oropharyngeal phase Qualified Code(s): R13.12 - Dysphagia, oropharyngeal phase Code(s): R13.10 - Dysphagia, unspecified Status: Acute (5) Perforation bowel: Code(s): K63.1 - Perforation of intestine (nontraumatic) Status: Acute Assessment and Plan: s/p surgery surgical site looks intact colostomy bag in place (6) DVT (deep venous thrombosis): Code(s): I82.409 - Acute embolism and thrombosis of unspecified deep veins of unspecified lower extremity Status: Acute Assessment and Plan: hold eliquis Subjective Date/time seen: 04/21/25 17:16 Interval history: primary team called us again because patient is hardly getting any nutrition and still confusional state after prolonged hospitalization with bowel perforation that requiring colostomy family now agreeable for PEG placement Review of Systems Review of Systems: All systems reviewed & are unremarkable except as noted in HPI and below Exam Const: General: comfortable and awake Orientation/consciousness: oriented to person Other: Spoke softly, following commands HENMT: Ears: TM's normal bilaterally Other: C-collar in place Eyes: General: appearance normal, both eyes and all related structures Sclera: sclerae normal Pupils: Equal, round and reactive pupils present Neck: Neck: supple Resp: Effort & Inspection: normal respiratory effort Auscultation: clear to auscultation bilaterally Cardio: Rate: regular rate Rhythm: regular rhythm GI: Auscultation: normal bowel sounds Other: Colostomy with brown stool. Urinary Catheter: Urinary Catheter: patent and draining and urine clear Skin: General skin exam: normal color Neuro: General: Unable to assess gait Speech: aphasia Gait exam (Neuro): Unable to assess gait Motor exam (neuro): Abnormal motor strength present (RUE weaker then LT ) Other: Patient not answering questions but would moan and talk to God asking him to help her. Extrem: General: no pedal edema Other: no edema right upper extremity swelling noted. PICC line in situ. Psych: Other: Pleasant. Know she is at the hospital and that is 2024. Objective Data Vital Signs Vital Signs: Vital Signs - 24 hr 04/20/25 20:00 04/20/25 20:00 04/20/25 21:20 Temperature 99.5 F Pulse Rate 114 H 112 H 112 H Respiratory Rate 16 16 Blood Pressure 132/78 Pulse Oximetry 100 100 Oxygen Delivery Room Air Fraction of Inspired Oxygen 21 04/21/25 00:00 04/21/25 04:00 04/21/25 06:00 Temperature Pulse Rate 113 H 110 H Respiratory Rate 16 Blood Pressure Pulse Oximetry Oxygen Delivery Fraction of Inspired Oxygen 04/21/25 08:15 04/21/25 13:54 04/21/25 16:08 Temperature 99.1 F 98.3 F Pulse Rate 112 H Respiratory Rate 17 Blood Pressure 117/71 Pulse Oximetry 100 Oxygen Delivery Room Air Fraction of Inspired Oxygen Intake/Output Intake/Output: Intake & Output 04/18/25 04/19/25 04/20/25 04/21/25 23:59 23:59 23:59 23:59 Intake Total 780 1440 510 50 Output Total 1950 250 850 Balance -1170 1190 -340 50 Meds/Results Medications: Active Medications Generic Name Dose Route Start Last Admin Trade Name Freq PRN Reason Stop Dose Admin Acetaminophen 1,000 mg 04/04/25 14:11 04/18/25 09:32 Acetaminophen 500 Mg Tablet PO 1,000 mg Q6H PRN Administration fever or pain 1-3 Albuterol/Ipratropium 3 ml 03/30/25 04:29 03/30/25 05:49 Ipratropium 0.5 Mg/Albuterol Sulfate 2.5 Mg Ampul.Neb 3 Ml INHALATION 3 ml Q6HRT PRN Administration Wheezing Amlodipine Besylate 5 mg 04/10/25 09:00 04/21/25 08:19 Amlodipine Besylate 5 Mg Tablet PO 5 mg DAILY JAYDEN Administration Apixaban 5 mg 04/17/25 21:00 04/21/25 08:19 Apixaban 5 Mg Tablet PO 5 mg Q12HR JAYDEN Administration Cyclobenzaprine HCl 5 mg 04/18/25 16:00 04/21/25 08:19 Cyclobenzaprine Hcl 5 Mg Tablet PO 5 mg Q12HR JAYDEN Administration Ketorolac Tromethamine 15 mg 04/18/25 13:18 Ketorolac 30 Mg/Ml Vial (*Bkc) IV PUSH Q6H PRN Breakthrough Pain Levetiracetam 1,500 mg 04/17/25 09:00 04/21/25 08:19 Levetiracetam 500 Mg Tablet PO 1,500 mg Q12HR JAYDEN Administration Magnesium Oxide 200 mg 04/20/25 21:00 04/20/25 21:37 Magnesium Oxide 200 Mg Tablet PO 200 mg HS JAYDEN Administration Mirtazapine 15 mg 04/14/25 21:00 04/20/25 21:37 Mirtazapine 15 Mg Tablet PO 15 mg HS JAYDEN Administration Naloxone HCl 0.1 mg 03/29/25 00:02 Naloxone Hcl 0.4 Mg/Ml Vial IV PUSH Q2M PRN Opiate Reversal Ondansetron HCl 4 mg 03/26/25 14:08 Ondansetron Inj 4 Mg/2 Ml Vial IV PUSH Q6H PRN Nausea And Vomiting Oxycodone HCl 2.5 mg 04/18/25 14:11 04/21/25 16:11 Oxycodone Hcl (*Crx) 2.5 Mg Tab Ir PO 2.5 mg Q4H PRN Administration Pain Rated 4-6 Oxycodone HCl 5 mg 04/18/25 14:11 04/20/25 21:37 Oxycodone Hcl (*Crx) 5 Mg Tab Ir PO 5 mg Q4H PRN Administration Pain Rated 7-10 Sertraline HCl 25 mg 04/06/25 18:00 04/21/25 08:19 Sertraline Hcl 25 Mg Tablet PO 25 mg QAM JAYDEN Administration Simethicone 80 mg 04/05/25 17:41 04/19/25 09:32 Simethicone 80 Mg Tab.Chew PO 80 mg QID PRN Administration Gas Discomfort Sodium Chloride 20 ml 03/29/25 09:36 Central Line Flush IV PUSH PRN PRN after blood draws Radiology Results: ITS Impressions Modified Barium Swallow 03/27/25 15:26 IMPRESSION: Oropharyngeal dysphagia with intermittent laryngeal penetration with indeterminate/possible minimal aspiration. Please correlate with speech pathologist findings and specific feeding recommendations. Brain MRI 03/27/25 15:28 IMPRESSION: 1. Normal aging brain with minimal periventricular calcific white matter T2 hyperintensity consistent with chronic small vessel ischemic disease. No acute intracranial process. Cervical Spine MRI 03/28/25 08:39 Impression: Fractured the base of the odontoid process possibly extending from the C2 vertebral body detailed above, most compatible with acute fracture. There is minimal marrow edema and suggestion of possible early cortication along the fracture margins. Alignment appears unchanged as compared to prior CT scans. Anterior fusion of C5 and C6. Moderate to advanced degenerative spondylosis otherwise, as detailed above, with multilevel neural foraminal narrowing. Abdomen X-Ray 04/01/25 10:44 IMPRESSION: 1. Nasogastric tube in the stomach. Chest X-Ray 04/04/25 14:06 IMPRESSION: Inadvertent withdrawal of the previously identified PICC line, which now projects over the right subclavian vein, as detailed above. Venous Doppler Study 04/05/25 11:34 IMPRESSION: 1. Bilateral upper extremity venous thrombosis with deep venous thrombosis of the right subclavian and axillary veins. Head CT 04/10/25 10:35 IMPRESSION: 1. No acute intracranial process. 2. Age-related changes including mild to moderate diffuse volume loss and mild scattered white matter attenuation consistent with chronic small vessel ischemic disease. 3. Chronic left frontal craniotomy. Chest/Abdomen/Pelvis CT 04/10/25 10:37 IMPRESSION: 1. Change of recent partial colectomy with left lower quadrant colostomy. No abscess or bowel obstruction. 2. Mild cardiomegaly. No acute cardiopulmonary disease. 3. Nonobstructing nephrolithiasis. Cervical Spine X-Ray 04/18/25 18:30 IMPRESSION: No definite acute osseous abnormality cervical spine. C2 is not very clear. Multilevel degenerative disc disease. Labs Labs: Laboratory Results - last 24 hr 04/21/25 04:29 WBC 3.6 L RBC 3.01 L Hgb 7.6 L Hct 26.0 L MCV 86.4 MCH 25.2 L MCHC 29.2 L RDW 17.6 H Plt Count 239 MPV 10.1 Immature Gran % (Auto) 0.6 H Neut % (Auto) 65.9 Lymph % (Auto) 25.1 Hartley % (Auto) 8.1 Eos % (Auto) 0.0 Baso % (Auto) 0.3 Lymph # (Auto) 0.90 Hartley # (Auto) 0.3 Eos # (Auto) 0.0 Baso # (Auto) 0.0 Abs Immat Gran (auto) 0.02 Absolute Neuts (auto) 2.4 Absolute Nucleated RBC 0.000 Band Neutrophils % Not Reportable Nucleated RBC % 0.0 Platelet Estimate Adequate Hypochromasia 2+ Poikilocytosis 1+ Anisocytosis 2+ Ovalocytes 1+ Schistocytes Rare Sodium 133 L Potassium 3.7 Chloride 102 Carbon Dioxide 22 Anion Gap 9 BUN 8 Creatinine 0.50 L Estim Creat Clear Calc 79 Estimated GFR > 60 Glucose 97 Calcium 8.4 Phosphorus 3.3 Magnesium 2.0
--- NOTE | 2025-04-21 19:59 | P.CONNS_ITS ---
Assessment and Plan Assessment and plan (1) Dens fracture: Code(s): S12.110A - Anterior displaced Type II dens fracture, initial encounter for closed fracture Status: Acute Plan Patient is a 75-year-old woman with a known subacute type 3 odontoid fracture sustained in early March 2025 which has been treated non-operatively by outside neurosurgeon. Imaging demonstrates stable alignment and evidence of early healing. She has a complex medical history and has had a complicated hospital course. Would recommend continued nonoperative management of the patient's C2 fracture. Maintain soft collar as much as possible. Avoid forceful manipulation of the head/neck. No additional interventions needed at this time. Patient can follow up with previous neurosurgeon post discharge. Reviewed imaging and case with Dr. Tramaine Osman, who is in agreement with these plans. Consult date: 04/21/25 Time Seen: 17:00 Reason for consult: C2 fracture HPI: Deedee Duran is a 75 year old female admitted for acute respiratory failure and failure to thrive on March 26, 2025. At the time of admission, she had a known dens fracture being treated nonoperatively in a collar by an outside neurosurgeon. Neurosurgery was consulted and Dr. Mccarty reviewed the chart on 03/27/25 and recommended continued nonoperative management with cervical collar at all times and to follow up with her previous neurosurgeon after discharge. She has had a prolonged and complicated hospital course and will undergo G-tube placement as she is unable to adequately take p.o. nutrition. The patient is confused at baseline and was unable to participate much in the exam. No family at bedside. [facility] Past Medical History Medical History (Updated 04/21/25 @ 17:19 by Dionisio Nuñez MD) Anorexia C2 cervical fracture CAD (coronary artery disease) Coarse tremors Subdural hemorrhage Subarachnoid hemorrhage Migraine Hypertension Family History Family History Mother Hypertension Spinal cord cancer Sibling Colon cancer Hypertension Other Breast cancer Social History Social History Smoking packs per day: 0.5 Smoking cigarettes per day: 10.0 Years smoked: 20 Smoking pack-years: 10.00 Smoking status: Former smoker Tobacco type: cigarettes Second hand tobacco smoke exposure: No Alcohol intake: never Substance use: never Spiritual care concerns: No Meds Home Medications and Allergies Home Medications ?Medication ?Instructions ?Recorded ?Confirmed ?Type amlodipine 10 mg tablet 10 mg PO DAILY 03/10/25 03/26/25 History aspirin 81 mg chewable tablet 81 mg PO DAILY 03/10/25 03/26/25 History docusate sodium 100 mg capsule 100 mg PO BID 03/10/25 03/26/25 History levetiracetam 250 mg tablet 1,500 mg PO DAILY 03/10/25 03/26/25 History (Keppra) oxycodone 5 mg tablet 5 mg PO Q6H PRN pain 03/10/25 03/26/25 History polyethylene glycol 3350 17 17 g PO DAILY 03/10/25 03/26/25 History gram/dose oral powder (ClearLax) potassium chloride 10 mEq 10 meq PO DAILY 03/10/25 03/26/25 History capsule,extended release prasugrel HCl 10 mg tablet 10 mg PO DAILY 03/10/25 03/26/25 History (Effient) primidone 250 mg tablet 250 mg PO QID 03/10/25 03/26/25 History topiramate 25 mg tablet (Topamax) 25 mg PO HS 03/10/25 03/26/25 History acetaminophen 500 mg capsule 1,000 mg PO Q6H PRN fever or pain 03/25/25 03/26/25 History Allergies Allergy/AdvReac Type Severity Reaction Status Date / Time morphine Allergy Unknown Unknown Verified 03/25/25 12:49 Vital Signs Vital Signs - 24 hr 04/20/25 20:00 04/20/25 20:00 04/20/25 21:20 Temperature 99.5 F Pulse Rate 114 H 112 H 112 H Respiratory Rate 16 16 Blood Pressure 132/78 Pulse Oximetry 100 100 Oxygen Delivery Room Air Fraction of Inspired Oxygen 21 04/21/25 00:00 04/21/25 04:00 04/21/25 06:00 Temperature Pulse Rate 113 H 110 H Respiratory Rate 16 Blood Pressure Pulse Oximetry Oxygen Delivery Fraction of Inspired Oxygen 04/21/25 08:00 04/21/25 08:15 04/21/25 12:00 Temperature Pulse Rate 110 H 111 H Respiratory Rate Blood Pressure Pulse Oximetry Oxygen Delivery Room Air Fraction of Inspired Oxygen 04/21/25 13:54 04/21/25 16:00 04/21/25 16:08 Temperature 99.1 F 98.3 F Pulse Rate 112 H 112 H Respiratory Rate 17 Blood Pressure 117/71 Pulse Oximetry 100 Oxygen Delivery Fraction of Inspired Oxygen Exam 2 Narrative: Patient is A&O x0 and does not answer questions but does follow simple commands. She is not wearing her collar. No guarding or facial grimace with palpation of the cervical spine or paraspinal musculature. Moves both upper extremities and left lower extremity when instructed. Did not move right lower extremity when instructed, unclear if this is due to inability to follow commands. Reflexes are blunted but symmetric. No pathologic reflexes noted. EOM intact. Facial movement symmetric. Results Labs 04/21/25 04:29 04/21/25 04:29 Labs: Short CBC 04/21/25 Range/Units 04:29 WBC 3.6 L (4.5-10.0) K/mm3 Hgb 7.6 L (12.0-15.0) g/dL Hct 26.0 L (37.0-47.0) % Plt Count 239 (150-375) k/mm3 BMP 04/21/25 04:29 Sodium 133 L Potassium 3.7 Chloride 102 Carbon Dioxide 22 BUN 8 Creatinine 0.50 L Glucose 97 Calcium 8.4 Imaging My impression: Reviewed cervical spine MRI and CT from 03/30 and cervical spine x-rays from 04/18. These demonstrate a subacute type 3 odontoid fracture with the early healing. Overall alignment appears unchanged. Head CT from 04/10/2025 also reviewed. No acute intracranial process. Evidence of chronic small-vessel ischemic disease and overall volume loss. Previous craniotomy defect.
[2025-04-21] MEDS: MAGNESIUM OXIDE 200 MG TABLET PO (20:31)
[2025-04-21] MEDS: MIRTAZAPINE 15 MG TABLET PO (20:32)
[2025-04-22] VITALS (13 sets, daily range): BP systolic 109–127; BP diastolic 64–81; PULSE 107–122; RESP 12–24; TEMP 36.4–37.5; O2SAT 99–100
[2025-04-22 05:24] LABS: Basophils Percent Auto 0.2 % (0.2-1.2); Hematocrit 27.3 % (37.0-47.0); Hemoglobin 8.1 g/dL (12.0-15.0); Immature Granulocyte Absolute 0.03 K/mm3 (0.00-0.031); Immature Granulocyte Percent A 0.6 % (0-0.5); Lymphocytes Absolute Auto 1.03 K/mm3 (0.9-3.2); Lymphocytes Percent Auto 19.4 % (18.3-44.2); Mean Corpuscular HGB Conc 29.7 g/dl (32-36); Mean Corpuscular Hemoglobin 25.4 pg (26-34); Mean Corpuscular Volume 85.6 fl (80-100); Mean Platelet Volume 10.3 fl (7.4-10.4); Monocytes Absolute Auto 0.3 K/mm3 (0.1-0.6); Monocytes Percent Auto 5.7 % (2.6-8.5); Neutrophils Absolute Auto 3.9 K/mm3 (1.3-6.7); Neutrophils Percent Auto 74.1 % (45.5-73.1); Platelet Count Result 264 k/mm3 (150-375); Red Blood Count 3.19 M/mm3 (4.2-5.4); Red Cell Distribution Width 17.5 % (11.5-14.5); White Blood Count 5.3 K/mm3 (4.5-10.0)
[2025-04-22 05:40] LABS: Alanine Aminotransferase 48 U/L (6-35); Albumin Level 3.1 g/dL (3.5-5.1); Alkaline Phosphatase 228 U/L (38-126); Anion Gap 9 mmol/L (4-12); Aspartate Amino Transferase 73 U/L (14-36); Bilirubin,Total 0.4 mg/dL (0.2-1.3); Blood Urea Nitrogen 10 mg/dL (7-17); Calcium 8.4 mg/dL (8.4-10.2); Carbon Dioxide 23 mmol/L (22-30); Chloride 101 mmol/L (98-107); Estimated CRCL calculation 76 ml/min; Estimated Glomerular Filt Rate > 60; Glucose 99 mg/dL (65-110); Magnesium 2.1 mg/dL (1.6-2.3); Phosphorus 3.2 mg/dL (2.5-4.5); Potassium 3.4 mmol/L (3.4-5.0); Sodium 133 mmol/L (137-145); Total Protein 7.5 g/dL (6.3-8.2)
[2025-04-22 05:53] LABS: Iron 21 ug/dL (37-170)
[2025-04-22 05:54] LABS: Anisocytosis 1+; Hypochromasia 1+; Ovalocytes 1+; Platelet Estimate Adequate (Adequate); Schistocytes None Seen
[2025-04-22 06:02] LABS: Percent Iron Saturation 9 % (20-50)
[2025-04-22] MEDS: CYCLOBENZAPRINE HCL 5 MG TABLET PO ×2 (08:31→20:42)
[2025-04-22] MEDS: levETIRAcetam 500 MG TABLET 1500 MG PO ×2 (08:31→20:42)
[2025-04-22] MEDS: SERTRALINE HCL 25 MG TABLET PO (08:31)
[2025-04-22] MEDS: amLODIPine BESYLATE 5 MG TABLET PO (08:31)
[2025-04-22] MEDS: oxyCODONE HCL (*CRX) 2.5 MG TAB IR PO (08:31)
--- NOTE | 2025-04-22 10:33 | PC.NURSE ---
pt to GI lab for PEG placement via stretcher
[2025-04-22] MEDS: LACTATED RINGERS 1,000 ML 150 ML IV CONT (11:00)
[2025-04-22] MEDS: ceFAZolin 1 GM/NS 50 ML 1 GM/50 ML BAG IVPB (11:01)
--- NOTE | 2025-04-22 11:16 | P.PNAN_ITS ---
Anes - Initial Pre Proc Eval Procedure: Operation Date: 03/28/25 20:00 Proposed Procedures p Exploratory Laparotomy, Posssible Ostomy - Antonio Coley DO Operation Date: 04/22/25 15:30 Proposed Procedures p Percutaneous Endoscopic Gastrostomy - Dionisio Nuñez MD Date/Time: 04/22/25 11:16 Surgeon: Caro Vazquez APRN Pre Op Diagnosis: ams,confusion Patient Data Age: 75 Gender: F Height: 1.7 m Weight: 75 kg Last Vital Signs Temp 37.5 C 04/22/25 10:52 Pulse 109 H 04/22/25 10:52 Resp 20 04/22/25 10:52 BP 121/71 04/22/25 10:52 Pulse Ox 100 04/22/25 10:52 O2 Del Method Room Air 04/22/25 10:52 O2 Flow Rate 1 03/30/25 20:20 FiO2 21 04/20/25 20:00 Allergies Allergy/AdvReac Type Severity Reaction Status Date / Time morphine Allergy Unknown Unknown Verified 03/25/25 12:49 Home Medications ?Medication ?Instructions ?Recorded ?Confirmed ?Type amlodipine 10 mg tablet 10 mg PO DAILY 03/10/25 03/26/25 History aspirin 81 mg chewable tablet 81 mg PO DAILY 03/10/25 03/26/25 History docusate sodium 100 mg capsule 100 mg PO BID 03/10/25 03/26/25 History levetiracetam 250 mg tablet 1,500 mg PO DAILY 03/10/25 03/26/25 History (Keppra) oxycodone 5 mg tablet 5 mg PO Q6H PRN pain 03/10/25 03/26/25 History polyethylene glycol 3350 17 17 g PO DAILY 03/10/25 03/26/25 History gram/dose oral powder (ClearLax) potassium chloride 10 mEq 10 meq PO DAILY 03/10/25 03/26/25 History capsule,extended release prasugrel HCl 10 mg tablet 10 mg PO DAILY 03/10/25 03/26/25 History (Effient) primidone 250 mg tablet 250 mg PO QID 03/10/25 03/26/25 History topiramate 25 mg tablet (Topamax) 25 mg PO HS 03/10/25 03/26/25 History acetaminophen 500 mg capsule 1,000 mg PO Q6H PRN fever or pain 03/25/25 03/26/25 History Laboratory Tests 04/22/25 04:51 WBC 5.3 K/mm3 (4.5-10.0) RBC 3.19 L M/mm3 (4.2-5.4) Hgb 8.1 L g/dL (12.0-15.0) Hct 27.3 L % (37.0-47.0) MCV 85.6 fl (80-100) MCH 25.4 L pg (26-34) MCHC 29.7 L g/dl (32-36) RDW 17.5 H % (11.5-14.5) Plt Count 264 k/mm3 (150-375) MPV 10.3 fl (7.4-10.4) Immature Gran % (Auto) 0.6 H % (0-0.5) Neut % (Auto) 74.1 H % (45.5-73.1) Lymph % (Auto) 19.4 % (18.3-44.2) White % (Auto) 5.7 % (2.6-8.5) Eos % (Auto) 0.0 % (0-4.4) Baso % (Auto) 0.2 % (0.2-1.2) Lymph # (Auto) 1.03 K/mm3 (0.9-3.2) White # (Auto) 0.3 K/mm3 (0.1-0.6) Eos # (Auto) 0.0 K/mm3 (0-0.3) Baso # (Auto) 0.0 K/mm3 (0.0-0.1) Abs Immat Gran (auto) 0.03 K/mm3 (0.00-0.031) Absolute Neuts (auto) 3.9 K/mm3 (1.3-6.7) Absolute Nucleated RBC 0.000 K/mm3 (0.0-0.012) Band Neutrophils % Not Reportable Nucleated RBC % 0.0 % (0.0-0.2) Platelet Estimate Adequate (Adequate) Hypochromasia 1+ Anisocytosis 1+ Ovalocytes 1+ Schistocytes None seen Sodium 133 L mmol/L (137-145) Potassium 3.4 mmol/L (3.4-5.0) Chloride 101 mmol/L (98-107) Carbon Dioxide 23 mmol/L (22-30) Anion Gap 9 mmol/L (4-12) BUN 10 mg/dL (7-17) Creatinine 0.52 L mg/dL (0.7-1.0) Estim Creat Clear Calc 76 ml/min Estimated GFR > 60 (59 - ) Glucose 99 mg/dL (65-110) Calcium 8.4 mg/dL (8.4-10.2) Phosphorus 3.2 mg/dL (2.5-4.5) Magnesium 2.1 mg/dL (1.6-2.3) Iron 21 L ug/dL (37-170) TIBC 244 L ug/dL (261-462) % Saturation 9 L % (20-50) Ferritin 94.40 ng/mL (11.1-264) Total Bilirubin 0.4 mg/dL (0.2-1.3) AST 73 H U/L (14-36) ALT 48 H U/L (6-35) Alkaline Phosphatase 228 H U/L (38-126) Total Protein 7.5 g/dL (6.3-8.2) Albumin 3.1 L g/dL (3.5-5.1) Patient hx anesthesia problems: none Family hx anesthesia problems: none Results Review: All pre-operative results and documents have been reviewed as part of the pre- operative evaluation. [facility] Past Medical History Medical History Anorexia C2 cervical fracture CAD (coronary artery disease) Coarse tremors Subdural hemorrhage Subarachnoid hemorrhage Migraine Hypertension Family History Family History Mother Hypertension Spinal cord cancer Sibling Colon cancer Hypertension Other Breast cancer Social History Social History Smoking packs per day: 0.5 Smoking cigarettes per day: 10.0 Years smoked: 20 Smoking pack-years: 10.00 Smoking status: Former smoker Tobacco type: cigarettes Second hand tobacco smoke exposure: No Alcohol intake: never Substance use: never Spiritual care concerns: No Anes - Eval Final PreProcedure Day of Procedure 04/22/25 11:16 Patient weight: normal Heart: regular rate and rhythm Lungs: decreased breath sounds Airway: special considerations (c collar) Neurological: other (alert) Last oral intake: >/= 8 hours ASA classification: IV Emergent: no Anesthetic plan: proceed Anesthesia type and monitoring: general GIVS and standard monitoring Other findings: no neck manipulation leave on collar with sedation Results Review: All pre-operative results and documents have been reviewed as part of the pre- operative evaluation. Informed Consent: The patient's anesthetic plan and its attendant risks and benefits were discussed with the patient/family/POA. Questions were solicited and answers provided to the satisfaction of the patient/family/POA.
--- NOTE | 2025-04-22 12:00 | SUR.PREOP ---
1035: PT'S SOFT C-COLLAR APPLIED TO PT WHILE PT IN BED, PT TRANSFERRED TO STRETCHER WITH STAFF OF 3. DAUGHTER AT BEDSIDE 1045: PT REMAINS ON STRETCHER IN GI LAB WITH SOFT C-COLLAR IN PLACE.
--- NOTE | 2025-04-22 12:26 | PC.NURSE ---
pt returned to floor, positioned in bed comfortably, orders reviewed
[2025-04-22] MEDS: oxyCODONE HCL (*CRX) 5 MG TAB IR PO ×2 (12:27→18:28)
--- NOTE | 2025-04-22 12:38 | SUR.PHASEII ---
Patient transferred to room 247 via stretcher. IV and C-collar intact. Patient comfortable in bed with alarm activated.
--- NOTE | 2025-04-22 13:21 | PCDIET ---
Dietitian consult for tube feedings. Recommend: Jevity 1.5 at 20 ml/hr advance by 10 ml q 4 hours to goal rate of 55 ml/hr. Flush of 150 ml q 4 hours. Tube feedings providing 1815 kcal/77 gm protein/919 ml water. Agree with diet orders.
--- NOTE | 2025-04-22 15:19 | P.PNIM_ITS ---
Progress Note: A&P Assessment and Plan (1) Dysphagia: Qualifiers: Dysphagia type: oropharyngeal phase Qualified Code(s): R13.12 - Dysphagia, oropharyngeal phase Code(s): R13.10 - Dysphagia, unspecified Status: Acute Assessment and Plan: Speech therapy note from 03/27 showing they recommend minced and moist Level 5. Repeat eval showing patient failed her swallow study 04/01. Speech Therapy following and patient able to be advanced back to minced and moist Level 5. Not taking enough and GTube recommended. Spoke with family and they do not want to proceed with feeding tube. They state the patient has told them she does not want this. patient reversed DNR last week to full code Daughter noted that patient they will meet as s a family and decided on G-tube placement Status post G-tube placement 04/22/2025 Start tube feeds in 6 hours (2) Decreased oral intake: Code(s): R63.8 - Other symptoms and signs concerning food and fluid intake Status: Acute Assessment and Plan: Failure to thrive Mirtazapine increased. Avoiding Megace due to DVT. Encourage oral intake. Status post G-tube placement 04/22/2025 (3) DVT (deep venous thrombosis): Code(s): I82.409 - Acute embolism and thrombosis of unspecified deep veins of unspecified lower extremity Status: Acute Assessment and Plan: Venous Doppler shows thrombus in the left cephalic and basilic veins and left upper extremity. Despite being on DVT prophylaxis now has DVT right subclavian, axillary and basilic veins likely PICC line associated. Switched to therapeutic Lovenox on 04/05/25. However had to hold due to blood in ostomy. H&H monitored and subsequently Lovenox resumed Picc line removed on 04/11/25. Changed to Eliquis and start 5mg Q12h since been on therapeutic Lovenox. Currently on hold for G-tube placement. Hold For another 2 days tentative resumption day 04/24/2025 (4) Acute respiratory failure: Code(s): J96.00 - Acute respiratory failure, unspecified whether with hypoxia or hypercapnia Status: Acute Assessment and Plan: Acute Respiratory failure secondary to altered mental status and inability to protect airway Patient was intubated and extubated on 03/30; able to be weaned to room air easily Stable and remains on room air. Appears to be protecting her airway but not eating much Avoid sedatives Follow clinically (5) Sepsis: Code(s): A41.9 - Sepsis, unspecified organism Status: Acute Assessment and Plan: Sepsis secondary to bowel perforation, peritonitis UCx negative. BCx negative Treated with Zosyn and has complete a course Sepsis resolved. (6) Perforation bowel: Code(s): K63.1 - Perforation of intestine (nontraumatic) Status: Acute Assessment and Plan: CT A/P 03/28 showing sigmoid diverticulosis with a 6cm cavity consistent with a contained bowel perforation. Gen surgery consulted and she underwent an exploratory laparotomy with sigmoid colon resection with end descending colostomy and an ileal resection with [id number] ileal anastomosis on 03/28/25. Management per General surgery. Surgery okayed to restart lovenox. Antibiotics as above and has completed a course (7) Altered mental status: Code(s): R41.82 - Altered mental status, unspecified Status: Acute Assessment and Plan: Patient presented with altered mental status. Patient also has history of seizure disorder and may have had seizure and be postictal. Other possibilities are sepsis as she had a perforated bowel; rapid response felt secondary to deterioration of mental status from Dilaudid. MRI brain 03/27 showed no acute intracranial process. EEG 03/29 showing nearly continuous focal slow wave activity intermixed with sharp wave transients were seen over left frontal area. This may relate to having previous surgery in this area. Focal slowing is suggestive of underlying structural lesion. Sharp transients are considered nonspecific focal interictal abnormality. Mild background slowing suggestive of generalized encephalopathy. TSH and B12 normal. Ammonia normal Neurology following Repeat EEG 04/14 showing abnormal EEG due to presence of diffuse background slowing suggestive of generalized encephalopathy. No focal or paroxysmal epileptiform abnormality was seen. Patient is awake but confused. She has a hx of SDH and subarachnoid hemorrhage. She may be close to her baseline. (8) C2 cervical fracture: Code(s): S12.100A - Unspecified displaced fracture of second cervical vertebra, initial encounter for closed fracture Status: Inactive Assessment and Plan: Patient had a C2 fracture from a fall in February prior to this admission Patient was evaluated by Neurosurgery. MRI C-spine showed a fracture at the base of the odontoid process possibly extending from the C2 vertebral body, most compatible with acute fracture. There is minimal marrow edema and suggestion of possible early cortication along the fracture margins. Alignment appears unchanged as compared to prior CT scans. No neurosurgery documentation seen on chart review We consulted Neurosurgery continue PRN pain control (9) Seizure disorder: Code(s): G40.909 - Epilepsy, unspecified, not intractable, without status epilepticus Status: Acute Assessment and Plan: History of seizure disorder. Continue Keppra. EEG as above. Neurology following. Change to oral Keppra (10) Anemia: Code(s): D64.9 - Anemia, unspecified Status: Acute Assessment and Plan: 03/30 Hemoglobin 6.2 likely secondary to surgery and hemodilution. No objective evidence of bleeding at this time. Stool is brown Transfused 1 unit PRBC Hgb low but stable in the 7 range. Continue PPI Follow Hgb and transfuse to a stable hgb (11) Depression: Code(s): F32.A - Depression, unspecified Status: Acute Assessment and Plan: Patient with ongoing MDD with lack of motivation Zoloft and then mirtazapine added, consider increasing zoloft Continue to monitor mood (12) GI bleed: Code(s): K92.2 - Gastrointestinal hemorrhage, unspecified Status: Acute Assessment and Plan: Brown stool in colostomy General surgery and GI following. Hgb remains stable. Iron panel pending Monitor (13) Hypokalemia: Code(s): E87.6 - Hypokalemia Status: Acute Assessment and Plan: Potassium 3.3>2.9 replaced, monitor (14) UTI (urinary tract infection): Code(s): N39.0 - Urinary tract infection, site not specified Status: Resolved Assessment and Plan: UA noted. UCx negative. UTI ruled out At risk with chronic Post (15) Goals of care, counseling/discussion: Code(s): Z71.89 - Other specified counseling Status: Acute Assessment and Plan: Family initially considering hospice but after further discussion with family, they are planning to see how she is eating over the weekend and then decide if she needs a G-tube --Patient declined hospice. Patient confused, but family would like to honor her wishes --Patient is a full code Decided on G-tube placement and now status post G-tube placement 04/22/2025 Plan DVT prophylaxis - SCD, Lovenox Code Status - Full Code Subjective Date/time seen: 04/22/25 15:19 Interval history: Chart reviewed. Underwent G-tube placement today. Review of Systems Review of Systems: ROS unobtainable: Yes unobtainable due to medical condition Exam Narrative: Gen - NARD Neck - cervical collar in place Chest - clear anteriorly except decreased BS in the right flank; nml RR CV - RRR S1/S2. Tele showing occasional PVCs o/w no acute dysrhythmias Abd - Soft, NT. LLQ ostomy secured with liquid brown stool in bag. Midline incision clean and dry Ext - No pedal edema Neuro - Alert and oriented x1 Psych - pleasant, but minimally participatory Skin - Warm and dry, no wounds or rashes Objective Data Vital Signs Vital Signs: Vital Signs - 24 hr 04/21/25 16:00 04/21/25 16:08 04/21/25 20:00 Temperature 98.3 F Pulse Rate 112 H Respiratory Rate Blood Pressure Pulse Oximetry Oxygen Delivery Room Air 04/21/25 20:00 04/21/25 20:47 04/22/25 00:00 Temperature 100.1 F H Pulse Rate 119 H 89 117 H Respiratory Rate 12 Blood Pressure 137/68 Pulse Oximetry 97 Oxygen Delivery 04/22/25 04:00 04/22/25 06:00 04/22/25 08:00 Temperature 98.7 F Pulse Rate 114 H 107 H 108 H Respiratory Rate 20 Blood Pressure 122/68 Pulse Oximetry 100 Oxygen Delivery 04/22/25 08:30 04/22/25 10:52 04/22/25 11:47 Temperature 99.5 F Pulse Rate 109 H 122 H Respiratory Rate 20 24 H Blood Pressure 121/71 109/80 Pulse Oximetry 100 100 Oxygen Delivery Room Air Room Air Room Air 04/22/25 11:57 04/22/25 12:07 Temperature Pulse Rate 121 H 117 H Respiratory Rate 18 16 Blood Pressure 123/64 117/67 Pulse Oximetry 100 100 Oxygen Delivery Room Air Room Air Intake/Output Intake/Output: Intake & Output 04/19/25 04/20/25 04/21/25 04/22/25 23:59 23:59 23:59 23:59 Intake Total 1440 510 50 100 Output Total 250 850 500 250 Balance 7039 -340 -450 -150 Meds/Results Medications: Active Medications Generic Name Dose Route Start Last Admin Trade Name Freq PRN Reason Stop Dose Admin Acetaminophen 1,000 mg 04/04/25 14:11 04/18/25 09:32 Acetaminophen 500 Mg Tablet PO 1,000 mg Q6H PRN Administration fever or pain 1-3 Albuterol/Ipratropium 3 ml 03/30/25 04:29 03/30/25 05:49 Ipratropium 0.5 Mg/Albuterol Sulfate 2.5 Mg Ampul.Neb 3 Ml INHALATION 3 ml Q6HRT PRN Administration Wheezing Amlodipine Besylate 5 mg 04/10/25 09:00 04/22/25 08:31 Amlodipine Besylate 5 Mg Tablet PO 5 mg DAILY JAYDEN Administration Apixaban 5 mg 04/17/25 21:00 04/21/25 08:19 Apixaban 5 Mg Tablet PO 5 mg Q12HR JAYDEN Administration Cyclobenzaprine HCl 5 mg 04/18/25 16:00 04/22/25 08:31 Cyclobenzaprine Hcl 5 Mg Tablet PO 5 mg Q12HR JAYDEN Administration Ketorolac Tromethamine 15 mg 04/18/25 13:18 Ketorolac 30 Mg/Ml Vial (*Bkc) IV PUSH Q6H PRN Breakthrough Pain Levetiracetam 1,500 mg 04/17/25 09:00 04/22/25 08:31 Levetiracetam 500 Mg Tablet PO 1,500 mg Q12HR JAYDEN Administration Magnesium Oxide 200 mg 04/20/25 21:00 04/21/25 20:31 Magnesium Oxide 200 Mg Tablet PO 200 mg HS JAYDEN Administration Mirtazapine 15 mg 04/14/25 21:00 04/21/25 20:32 Mirtazapine 15 Mg Tablet PO 15 mg HS JAYDEN Administration Naloxone HCl 0.1 mg 03/29/25 00:02 Naloxone Hcl 0.4 Mg/Ml Vial IV PUSH Q2M PRN Opiate Reversal Ondansetron HCl 4 mg 03/26/25 14:08 Ondansetron Inj 4 Mg/2 Ml Vial IV PUSH Q6H PRN Nausea And Vomiting Oxycodone HCl 2.5 mg 04/18/25 14:11 04/22/25 08:31 Oxycodone Hcl (*Crx) 2.5 Mg Tab Ir PO 2.5 mg Q4H PRN Administration Pain Rated 4-6 Oxycodone HCl 5 mg 04/18/25 14:11 04/22/25 12:27 Oxycodone Hcl (*Crx) 5 Mg Tab Ir PO 5 mg Q4H PRN Administration Pain Rated 7-10 Sertraline HCl 25 mg 04/06/25 18:00 04/22/25 08:31 Sertraline Hcl 25 Mg Tablet PO 25 mg QAM JAYDEN Administration Simethicone 80 mg 04/05/25 17:41 04/19/25 09:32 Simethicone 80 Mg Tab.Chew PO 80 mg QID PRN Administration Gas Discomfort Sodium Chloride 20 ml 03/29/25 09:36 Central Line Flush IV PUSH PRN PRN after blood draws Radiology Results: ITS Impressions Modified Barium Swallow 03/27/25 15:26 IMPRESSION: Oropharyngeal dysphagia with intermittent laryngeal penetration with indeterminate/possible minimal aspiration. Please correlate with speech pathologist findings and specific feeding recommendations. Brain MRI 03/27/25 15:28 IMPRESSION: 1. Normal aging brain with minimal periventricular calcific white matter T2 hyperintensity consistent with chronic small vessel ischemic disease. No acute intracranial process. Cervical Spine MRI 03/28/25 08:39 Impression: Fractured the base of the odontoid process possibly extending from the C2 vertebral body detailed above, most compatible with acute fracture. There is minimal marrow edema and suggestion of possible early cortication along the fracture margins. Alignment appears unchanged as compared to prior CT scans. Anterior fusion of C5 and C6. Moderate to advanced degenerative spondylosis otherwise, as detailed above, with multilevel neural foraminal narrowing. Abdomen X-Ray 04/01/25 10:44 IMPRESSION: 1. Nasogastric tube in the stomach. Chest X-Ray 04/04/25 14:06 IMPRESSION: Inadvertent withdrawal of the previously identified PICC line, which now projects over the right subclavian vein, as detailed above. Venous Doppler Study 04/05/25 11:34 IMPRESSION: 1. Bilateral upper extremity venous thrombosis with deep venous thrombosis of the right subclavian and axillary veins. Head CT 04/10/25 10:35 IMPRESSION: 1. No acute intracranial process. 2. Age-related changes including mild to moderate diffuse volume loss and mild scattered white matter attenuation consistent with chronic small vessel ischemic disease. 3. Chronic left frontal craniotomy. Chest/Abdomen/Pelvis CT 04/10/25 10:37 IMPRESSION: 1. Change of recent partial colectomy with left lower quadrant colostomy. No abscess or bowel obstruction. 2. Mild cardiomegaly. No acute cardiopulmonary disease. 3. Nonobstructing nephrolithiasis. Cervical Spine X-Ray 04/18/25 18:30 IMPRESSION: No definite acute osseous abnormality cervical spine. C2 is not very clear. Multilevel degenerative disc disease. Labs Labs: Laboratory Results - last 24 hr 04/22/25 04:51 WBC 5.3 RBC 3.19 L Hgb 8.1 L Hct 27.3 L MCV 85.6 MCH 25.4 L MCHC 29.7 L RDW 17.5 H Plt Count 264 MPV 10.3 Immature Gran % (Auto) 0.6 H Neut % (Auto) 74.1 H Lymph % (Auto) 19.4 Alcorn % (Auto) 5.7 Eos % (Auto) 0.0 Baso % (Auto) 0.2 Lymph # (Auto) 1.03 Alcorn # (Auto) 0.3 Eos # (Auto) 0.0 Baso # (Auto) 0.0 Abs Immat Gran (auto) 0.03 Absolute Neuts (auto) 3.9 Absolute Nucleated RBC 0.000 Band Neutrophils % Not Reportable Nucleated RBC % 0.0 Platelet Estimate Adequate Hypochromasia 1+ Anisocytosis 1+ Ovalocytes 1+ Schistocytes None seen Sodium 133 L Potassium 3.4 Chloride 101 Carbon Dioxide 23 Anion Gap 9 BUN 10 Creatinine 0.52 L Estim Creat Clear Calc 76 Estimated GFR > 60 Glucose 99 Calcium 8.4 Phosphorus 3.2 Magnesium 2.1 Iron 21 L TIBC 244 L % Saturation 9 L Ferritin 94.40 Total Bilirubin 0.4 AST 73 H ALT 48 H Alkaline Phosphatase 228 H Total Protein 7.5 Albumin 3.1 L
[2025-04-22] MEDS: POTASSIUM CHLORIDE 20 MEQ PACKET (FOR LIQUID) 40 MEQ FEED TUBE (18:24)
[2025-04-22] MEDS: MAGNESIUM OXIDE 200 MG TABLET PO (20:42)
[2025-04-22] MEDS: MIRTAZAPINE 15 MG TABLET PO (20:42)
[2025-04-23] VITALS (10 sets, daily range): BP systolic 112–119; BP diastolic 62–68; PULSE 110–116; RESP 16–20; TEMP 36.6–37.1; O2SAT 96–100
[2025-04-23] MEDS: oxyCODONE HCL (*CRX) 5 MG TAB IR PO (02:29)
[2025-04-23 05:08] LABS: Basophils Percent Auto 0.2 % (0.2-1.2); Eosinophils Percent Auto 0.7 % (0-4.4); Hematocrit 28.4 % (37.0-47.0); Hemoglobin 8.3 g/dL (12.0-15.0); Immature Granulocyte Absolute 0.03 K/mm3 (0.00-0.031); Immature Granulocyte Percent A 0.7 % (0-0.5); Lymphocytes Absolute Auto 0.94 K/mm3 (0.9-3.2); Mean Corpuscular HGB Conc 29.2 g/dl (32-36); Mean Corpuscular Hemoglobin 24.9 pg (26-34); Mean Platelet Volume 10.3 fl (7.4-10.4); Monocytes Absolute Auto 0.3 K/mm3 (0.1-0.6); Neutrophils Absolute Auto 3.2 K/mm3 (1.3-6.7); Neutrophils Percent Auto 71.4 % (45.5-73.1); Platelet Count Result 246 k/mm3 (150-375); Red Blood Count 3.34 M/mm3 (4.2-5.4); Red Cell Distribution Width 17.6 % (11.5-14.5); White Blood Count 4.5 K/mm3 (4.5-10.0)
[2025-04-23 05:40] LABS: Anion Gap 7 mmol/L (4-12); Blood Urea Nitrogen 15 mg/dL (7-17); Calcium 8.6 mg/dL (8.4-10.2); Carbon Dioxide 26 mmol/L (22-30); Chloride 101 mmol/L (98-107); Estimated CRCL calculation 72 ml/min; Estimated Glomerular Filt Rate > 60; Glucose 132 mg/dL (65-110); Phosphorus 3.2 mg/dL (2.5-4.5); Sodium 134 mmol/L (137-145)
[2025-04-23 05:41] LABS: Band Neutrophils Percent 0 % (0-6); Platelet Estimate Adequate (Adequate)
[2025-04-23 05:42] LABS: Anisocytosis 1+; Hypochromasia 1+; Poikilocytosis 1+; Schistocytes None Seen
[2025-04-23] MEDS: CYCLOBENZAPRINE HCL 5 MG TABLET PO ×2 (09:24→21:14)
[2025-04-23] MEDS: SERTRALINE HCL 25 MG TABLET PO (09:24)
[2025-04-23] MEDS: amLODIPine BESYLATE 5 MG TABLET PO (09:24)
[2025-04-23] MEDS: levETIRAcetam 500 MG TABLET 1500 MG PO ×2 (09:24→21:13)
--- NOTE | 2025-04-23 14:26 | WPDANESPN ---
Anes - Prog Note Post-Op Date/Time: 04/23/25 14:26 Cardiovascular status: normal Respiratory status: normal Airway patency: baseline Mental status: baseline Post-Op hydration status: normal Vital Signs: Last Vital Signs Temp 97.8 F 04/23/25 05:59 Pulse 115 H 04/23/25 12:02 Resp 16 04/23/25 09:24 BP 117/68 04/23/25 05:59 Pulse Ox 96 04/23/25 09:24 O2 Del Method Room Air 04/23/25 09:24 O2 Flow Rate 1 03/30/25 20:20 FiO2 21 04/20/25 20:00 Pain Score (VAS): 0/10 I/O: Intake & Output 04/22/25 04/23/25 04/23/25 23:59 07:59 15:59 Intake Total 100 Output Total 500 200 200 Balance -400 -200 -200 Laboratory Tests 04/23/25 04:25 04/23/25 04:25 04/23/25 04:25 WBC 4.5 RBC 3.34 L Hgb 8.3 L Hct 28.4 L MCV 85.0 MCH 24.9 L MCHC 29.2 L RDW 17.6 H Plt Count 246 MPV 10.3 Immature Gran % (Auto) 0.7 H Neut % (Auto) 71.4 Lymph % (Auto) 21.0 Stephens % (Auto) 6.0 Eos % (Auto) 0.7 Baso % (Auto) 0.2 Lymph # (Auto) 0.94 Stephens # (Auto) 0.3 Eos # (Auto) 0.0 Baso # (Auto) 0.0 Abs Immat Gran (auto) 0.03 Absolute Neuts (auto) 3.2 Absolute Nucleated RBC 0.000 Band Neutrophils % 0 Nucleated RBC % 0.0 Platelet Estimate Adequate Hypochromasia 1+ Poikilocytosis 1+ Anisocytosis 1+ Schistocytes None seen Sodium 134 L Potassium 4.0 Chloride 101 Carbon Dioxide 26 Anion Gap 7 BUN 15 D Creatinine 0.55 L Estim Creat Clear Calc 72 Estimated GFR > 60 Glucose 132 H Calcium 8.6 Phosphorus 3.2 Post-procedural complaints: none Patient Feedback: Patient satisfied with anesthetic care.
--- NOTE | 2025-04-23 17:05 | PM.IMPN ---
Progress Note: A&P Assessment and Plan (1) Dysphagia: Qualifiers: Dysphagia type: oropharyngeal phase Qualified Code(s): R13.12 - Dysphagia, oropharyngeal phase Code(s): R13.10 - Dysphagia, unspecified Status: Acute Assessment and Plan: Speech therapy note from 03/27 showing they recommend minced and moist Level 5. Repeat eval showing patient failed her swallow study 04/01. Speech Therapy following and patient able to be advanced back to minced and moist Level 5. patient reversed DNR last week to full code Daughter noted that patient they will meet as s a family and decided on G-tube placement Status post G-tube placement 04/22/2025 now on tube feeding (2) Decreased oral intake: Code(s): R63.8 - Other symptoms and signs concerning food and fluid intake Status: Acute Assessment and Plan: Failure to thrive Mirtazapine increased. Avoiding Megace due to DVT. Encourage oral intake. Status post G-tube placement 04/22/2025 (3) DVT (deep venous thrombosis): Code(s): I82.409 - Acute embolism and thrombosis of unspecified deep veins of unspecified lower extremity Status: Acute Assessment and Plan: Venous Doppler shows thrombus in the left cephalic and basilic veins and left upper extremity. Despite being on DVT prophylaxis now has DVT right subclavian, axillary and basilic veins likely PICC line associated. Switched to therapeutic Lovenox on 04/05/25. However had to hold due to blood in ostomy. H&H monitored and subsequently Lovenox resumed Picc line removed on 04/11/25. Changed to Eliquis and start 5mg Q12h since been on therapeutic Lovenox. Currently on hold for G-tube placement. Hold For another 2 days tentative resumption day 04/24/2025 (4) Acute respiratory failure: Code(s): J96.00 - Acute respiratory failure, unspecified whether with hypoxia or hypercapnia Status: Acute Assessment and Plan: Acute Respiratory failure secondary to altered mental status and inability to protect airway Patient was intubated and extubated on 03/30; able to be weaned to room air easily Stable and remains on room air. Avoid sedatives Follow clinically (5) Sepsis: Code(s): A41.9 - Sepsis, unspecified organism Status: Acute Assessment and Plan: Sepsis secondary to bowel perforation, peritonitis UCx negative. BCx negative Treated with Zosyn and has complete a course Sepsis resolved. (6) Perforation bowel: Code(s): K63.1 - Perforation of intestine (nontraumatic) Status: Acute Assessment and Plan: CT A/P 03/28 showing sigmoid diverticulosis with a 6cm cavity consistent with a contained bowel perforation. Gen surgery consulted and she underwent an exploratory laparotomy with sigmoid colon resection with end descending colostomy and an ileal resection with [id number] ileal anastomosis on 03/28/25. Management per General surgery. Surgery okayed to restart lovenox. Antibiotics as above and has completed a course (7) Altered mental status: Code(s): R41.82 - Altered mental status, unspecified Status: Acute Assessment and Plan: Patient presented with altered mental status. Patient also has history of seizure disorder and may have had seizure and be postictal. Other possibilities are sepsis as she had a perforated bowel; rapid response felt secondary to deterioration of mental status from Dilaudid. MRI brain 03/27 showed no acute intracranial process. EEG 03/29 showing nearly continuous focal slow wave activity intermixed with sharp wave transients were seen over left frontal area. This may relate to having previous surgery in this area. Focal slowing is suggestive of underlying structural lesion. Sharp transients are considered nonspecific focal interictal abnormality. Mild background slowing suggestive of generalized encephalopathy. TSH and B12 normal. Ammonia normal Neurology following Repeat EEG 04/14 showing abnormal EEG due to presence of diffuse background slowing suggestive of generalized encephalopathy. No focal or paroxysmal epileptiform abnormality was seen. Patient is awake but confused. She has a hx of SDH and subarachnoid hemorrhage. She may be close to her baseline. (8) C2 cervical fracture: Code(s): S12.100A - Unspecified displaced fracture of second cervical vertebra, initial encounter for closed fracture Status: Inactive Assessment and Plan: Patient had a C2 fracture from a fall in February prior to this admission Patient was evaluated by Neurosurgery. MRI C-spine showed a fracture at the base of the odontoid process possibly extending from the C2 vertebral body, most compatible with acute fracture. There is minimal marrow edema and suggestion of possible early cortication along the fracture margins. Alignment appears unchanged as compared to prior CT scans. Neurosurgery evaluated noted, recommended non operative care with soft cervical collar continue soft cervical collar per neurrosuergy (9) Seizure disorder: Code(s): G40.909 - Epilepsy, unspecified, not intractable, without status epilepticus Status: Acute Assessment and Plan: History of seizure disorder. Continue Keppra. EEG as above. Neurology following. Change to oral Keppra (10) Anemia: Code(s): D64.9 - Anemia, unspecified Status: Acute Assessment and Plan: 03/30 Hemoglobin 6.2 likely secondary to surgery and hemodilution. No objective evidence of bleeding at this time. Stool is brown Transfused 1 unit PRBC Hgb low but stable in the 7 range. Continue PPI Hb stable at 8.3 (11) Depression: Code(s): F32.A - Depression, unspecified Status: Acute Assessment and Plan: Patient with ongoing MDD with lack of motivation Zoloft and then mirtazapine added, consider increasing zoloft Continue to monitor mood (12) GI bleed: Code(s): K92.2 - Gastrointestinal hemorrhage, unspecified Status: Acute Assessment and Plan: Brown stool in colostomy General surgery and GI following. Hgb remains stable. Iron panel pending Monitor (13) Hypokalemia: Code(s): E87.6 - Hypokalemia Status: Acute Assessment and Plan: Potassium 3.3>2.9 replaced, monitor (14) UTI (urinary tract infection): Code(s): N39.0 - Urinary tract infection, site not specified Status: Resolved Assessment and Plan: UA noted. UCx negative. UTI ruled out At risk with chronic Post (15) Goals of care, counseling/discussion: Code(s): Z71.89 - Other specified counseling Status: Acute Assessment and Plan: Patient full code currently Plan DVT prophylaxis - SCD, Lovenox Code Status - Full Code Subjective Date/time seen: 04/23/25 17:05 Interval history: patient comfortabel at bedside S/p G ube placemetn yesterday adn appears to eb at feeding tube goal awaiting placement Review of Systems Review of Systems: All systems reviewed & are unremarkable except as noted in HPI and below ROS unobtainable: Yes unobtainable due to endotracheal tube, unobtainable due to medical condition and unobtainable due to mental status Exam Narrative: Gen - NARD Neck - cervical collar in place Chest - clear anteriorly except decreased BS in the right flank; nml RR CV - RRR S1/S2. Tele showing occasional PVCs o/w no acute dysrhythmias Abd - Soft, NT. LLQ ostomy secured with liquid brown stool in bag. Midline incision clean and dry Ext - No pedal edema Neuro - Alert and oriented x1 Psych - pleasant, but minimally participatory Skin - Warm and dry, no wounds or rashes Const: General: comfortable, no acute distress, alert and awake Orientation/consciousness: oriented to person Other: Spoke softly, following commands HENMT: Ears: TM's normal bilaterally Face/Nose/Sinus: Normal nares present Mouth: Yes moist mucous membranes Other: C-collar in place Eyes: General: appearance normal, both eyes and all related structures Sclera: sclerae normal Pupils: Equal, round and reactive pupils present Neck: Neck: supple and no JVD Resp: Effort & Inspection: normal respiratory effort Auscultation: clear to auscultation bilaterally Cardio: Rate: regular rate and tachycardic Rhythm: regular rhythm Other: Telemetry- SR 92. GI: Auscultation: normal bowel sounds Other: Colostomy with brown stool. Urinary Catheter: Urinary Catheter: patent and draining and urine clear Skin: General skin exam: normal color and no rashes or lesions noted Wounds: no wounds Neuro: General: oriented to person, Normal light touch and pain sensation and Unable to assess gait Cranial nerves: Yes facial sensation intact/muscles of mastication intact and Yes Equal, round and reactive pupils present Speech: normal speech and aphasia Gait exam (Neuro): Unable to assess gait Motor exam (neuro): Abnormal motor strength present (RUE weaker then LT ) Sensory Exam: normal sensation Other: Patient not answering questions but would moan and talk to God asking him to help her. Extrem: General: normal to inspection and no pedal edema Other: no edema right upper extremity swelling noted. PICC line in situ. Psych: Mental Status: mental status grossly normal Affect: normal affect Other: Pleasant. Know she is at the hospital and that is 2024. Objective Data Vital Signs Vital Signs: Vital Signs - 24 hr 04/22/25 20:00 04/22/25 20:00 04/22/25 20:37 Temperature 98.1 F Pulse Rate 116 H 117 H Respiratory Rate 16 Blood Pressure 117/70 Pulse Oximetry 99 Oxygen Delivery Room Air 04/22/25 21:25 04/23/25 00:00 04/23/25 04:00 Temperature Pulse Rate 115 H 115 H Respiratory Rate Blood Pressure Pulse Oximetry 99 Oxygen Delivery Room Air 04/23/25 05:59 04/23/25 08:02 04/23/25 09:24 Temperature 97.8 F Pulse Rate 115 H 115 H Respiratory Rate 16 16 Blood Pressure 117/68 Pulse Oximetry 96 96 Oxygen Delivery Room Air 04/23/25 09:24 04/23/25 12:02 04/23/25 14:00 Temperature 98.8 F Pulse Rate 115 H 115 H 110 H Respiratory Rate 20 Blood Pressure 119/62 Pulse Oximetry 100 Oxygen Delivery 04/23/25 16:02 Temperature Pulse Rate 116 H Respiratory Rate Blood Pressure Pulse Oximetry Oxygen Delivery Intake/Output Intake/Output: Intake & Output 04/20/25 04/21/25 04/22/25 04/23/25 23:59 23:59 23:59 23:59 Intake Total 510 50 200 100 Output Total 850 500 750 650 Balance -340 -450 -550 -550 Meds/Results Medications: Active Medications Generic Name Dose Route Start Last Admin Trade Name Freq PRN Reason Stop Dose Admin Acetaminophen 1,000 mg 04/04/25 14:11 04/18/25 09:32 Acetaminophen 500 Mg Tablet PO 1,000 mg Q6H PRN Administration fever or pain 1-3 Albuterol/Ipratropium 3 ml 03/30/25 04:29 03/30/25 05:49 Ipratropium 0.5 Mg/Albuterol Sulfate 2.5 Mg Ampul.Neb 3 Ml INHALATION 3 ml Q6HRT PRN Administration Wheezing Amlodipine Besylate 5 mg 04/10/25 09:00 04/23/25 09:24 Amlodipine Besylate 5 Mg Tablet PO 5 mg DAILY JAYDEN Administration Apixaban 5 mg 04/17/25 21:00 04/21/25 08:19 Apixaban 5 Mg Tablet PO 5 mg Q12HR JAYDEN Administration Cyclobenzaprine HCl 5 mg 04/18/25 16:00 04/23/25 09:24 Cyclobenzaprine Hcl 5 Mg Tablet PO 5 mg Q12HR JAYDEN Administration Levetiracetam 1,500 mg 04/17/25 09:00 04/23/25 09:24 Levetiracetam 500 Mg Tablet PO 1,500 mg Q12HR JAYDEN Administration Magnesium Oxide 200 mg 04/20/25 21:00 04/22/25 20:42 Magnesium Oxide 200 Mg Tablet PO 200 mg HS JAYDEN Administration Mirtazapine 15 mg 04/14/25 21:00 04/22/25 20:42 Mirtazapine 15 Mg Tablet PO 15 mg HS JAYDEN Administration Naloxone HCl 0.1 mg 03/29/25 00:02 Naloxone Hcl 0.4 Mg/Ml Vial IV PUSH Q2M PRN Opiate Reversal Ondansetron HCl 4 mg 03/26/25 14:08 Ondansetron Inj 4 Mg/2 Ml Vial IV PUSH Q6H PRN Nausea And Vomiting Oxycodone HCl 2.5 mg 04/18/25 14:11 04/22/25 08:31 Oxycodone Hcl (*Crx) 2.5 Mg Tab Ir PO 2.5 mg Q4H PRN Administration Pain Rated 4-6 Oxycodone HCl 5 mg 04/18/25 14:11 04/23/25 02:29 Oxycodone Hcl (*Crx) 5 Mg Tab Ir PO 5 mg Q4H PRN Administration Pain Rated 7-10 Sertraline HCl 25 mg 04/06/25 18:00 04/23/25 09:24 Sertraline Hcl 25 Mg Tablet PO 25 mg QAM JAYDEN Administration Simethicone 80 mg 04/05/25 17:41 04/19/25 09:32 Simethicone 80 Mg Tab.Chew PO 80 mg QID PRN Administration Gas Discomfort Sodium Chloride 20 ml 03/29/25 09:36 Central Line Flush IV PUSH PRN PRN after blood draws Radiology Results: ITS Impressions Modified Barium Swallow 03/27/25 15:26 IMPRESSION: Oropharyngeal dysphagia with intermittent laryngeal penetration with indeterminate/possible minimal aspiration. Please correlate with speech pathologist findings and specific feeding recommendations. Brain MRI 03/27/25 15:28 IMPRESSION: 1. Normal aging brain with minimal periventricular calcific white matter T2 hyperintensity consistent with chronic small vessel ischemic disease. No acute intracranial process. Cervical Spine MRI 03/28/25 08:39 Impression: Fractured the base of the odontoid process possibly extending from the C2 vertebral body detailed above, most compatible with acute fracture. There is minimal marrow edema and suggestion of possible early cortication along the fracture margins. Alignment appears unchanged as compared to prior CT scans. Anterior fusion of C5 and C6. Moderate to advanced degenerative spondylosis otherwise, as detailed above, with multilevel neural foraminal narrowing. Abdomen X-Ray 04/01/25 10:44 IMPRESSION: 1. Nasogastric tube in the stomach. Chest X-Ray 04/04/25 14:06 IMPRESSION: Inadvertent withdrawal of the previously identified PICC line, which now projects over the right subclavian vein, as detailed above. Venous Doppler Study 04/05/25 11:34 IMPRESSION: 1. Bilateral upper extremity venous thrombosis with deep venous thrombosis of the right subclavian and axillary veins. Head CT 04/10/25 10:35 IMPRESSION: 1. No acute intracranial process. 2. Age-related changes including mild to moderate diffuse volume loss and mild scattered white matter attenuation consistent with chronic small vessel ischemic disease. 3. Chronic left frontal craniotomy. Chest/Abdomen/Pelvis CT 04/10/25 10:37 IMPRESSION: 1. Change of recent partial colectomy with left lower quadrant colostomy. No abscess or bowel obstruction. 2. Mild cardiomegaly. No acute cardiopulmonary disease. 3. Nonobstructing nephrolithiasis. Cervical Spine X-Ray 04/18/25 18:30 IMPRESSION: No definite acute osseous abnormality cervical spine. C2 is not very clear. Multilevel degenerative disc disease. Labs Labs: Laboratory Results - last 24 hr 04/23/25 04:25 WBC 4.5 RBC 3.34 L Hgb 8.3 L Hct 28.4 L MCV 85.0 MCH 24.9 L MCHC 29.2 L RDW 17.6 H Plt Count 246 MPV 10.3 Immature Gran % (Auto) 0.7 H Neut % (Auto) 71.4 Lymph % (Auto) 21.0 [place] % (Auto) 6.0 Eos % (Auto) 0.7 Baso % (Auto) 0.2 Lymph # (Auto) 0.94 [place] # (Auto) 0.3 Eos # (Auto) 0.0 Baso # (Auto) 0.0 Abs Immat Gran (auto) 0.03 Absolute Neuts (auto) 3.2 Absolute Nucleated RBC 0.000 Band Neutrophils % 0 Nucleated RBC % 0.0 Platelet Estimate Adequate Hypochromasia 1+ Poikilocytosis 1+ Anisocytosis 1+ Schistocytes None seen Sodium 134 L Potassium 4.0 Chloride 101 Carbon Dioxide 26 Anion Gap 7 BUN 15 D Creatinine 0.55 L Estim Creat Clear Calc 72 Estimated GFR > 60 Glucose 132 H Calcium 8.6 Phosphorus 3.2 Quality VTE Prophylaxis VTE prophylaxis: pharmacologic ordered
--- NOTE | 2025-04-23 18:21 | WPDGIPROGNO ---
Progress Note: A&P Assessment and Plan (1) Anorexia: Code(s): R63.0 - Anorexia Status: Acute Assessment and Plan: s/p g-tube and tolerating tube feeding resume eliquis in 2 days will follow as needed (2) Altered mental status: Code(s): R41.82 - Altered mental status, unspecified Status: Acute (3) Aphasia: Code(s): R47.01 - Aphasia Status: Resolved (4) Dysphagia: Qualifiers: Dysphagia type: oropharyngeal phase Qualified Code(s): R13.12 - Dysphagia, oropharyngeal phase Code(s): R13.10 - Dysphagia, unspecified Status: Acute (5) Perforation bowel: Code(s): K63.1 - Perforation of intestine (nontraumatic) Status: Acute Assessment and Plan: s/p surgery surgical site looks intact colostomy bag in place Subjective Date/time seen: 04/23/25 18:21 Interval history: tolerating tube feeding at 55 ml/h, no issues Review of Systems Review of Systems: All systems reviewed & are unremarkable except as noted in HPI and below Exam Const: General: comfortable and awake Orientation/consciousness: oriented to person Other: Spoke softly, following commands HENMT: Ears: TM's normal bilaterally Other: C-collar in place Eyes: General: appearance normal, both eyes and all related structures Sclera: sclerae normal Pupils: Equal, round and reactive pupils present Neck: Neck: supple Resp: Effort & Inspection: normal respiratory effort Auscultation: clear to auscultation bilaterally Cardio: Rate: regular rate Rhythm: regular rhythm GI: Auscultation: normal bowel sounds Other: Colostomy with brown stool. G-tube in position Urinary Catheter: Urinary Catheter: patent and draining and urine clear Skin: General skin exam: normal color Neuro: General: Unable to assess gait Gait exam (Neuro): Unable to assess gait Motor exam (neuro): Abnormal motor strength present (RUE weaker then LT ) Other: Patient not answering questions but would moan Extrem: General: no pedal edema Psych: Other: Pleasant. Objective Data Vital Signs Vital Signs: Vital Signs - 24 hr 04/22/25 20:00 04/22/25 20:00 04/22/25 20:37 Temperature 98.1 F Pulse Rate 116 H 117 H Respiratory Rate 16 Blood Pressure 117/70 Pulse Oximetry 99 Oxygen Delivery Room Air 04/22/25 21:25 04/23/25 00:00 04/23/25 04:00 Temperature Pulse Rate 115 H 115 H Respiratory Rate Blood Pressure Pulse Oximetry 99 Oxygen Delivery Room Air 04/23/25 05:59 04/23/25 08:02 04/23/25 09:24 Temperature 97.8 F Pulse Rate 115 H 115 H Respiratory Rate 16 16 Blood Pressure 117/68 Pulse Oximetry 96 96 Oxygen Delivery Room Air 04/23/25 09:24 04/23/25 12:02 04/23/25 14:00 Temperature 98.8 F Pulse Rate 115 H 115 H 110 H Respiratory Rate 20 Blood Pressure 119/62 Pulse Oximetry 100 Oxygen Delivery 04/23/25 16:02 Temperature Pulse Rate 116 H Respiratory Rate Blood Pressure Pulse Oximetry Oxygen Delivery Intake/Output Intake/Output: Intake & Output 04/20/25 04/21/25 04/22/25 04/23/25 23:59 23:59 23:59 23:59 Intake Total 510 50 200 100 Output Total 850 500 750 650 Balance -340 -450 -550 -550 Meds/Results Medications: Active Medications Generic Name Dose Route Start Last Admin Trade Name Freq PRN Reason Stop Dose Admin Acetaminophen 1,000 mg 04/04/25 14:11 04/18/25 09:32 Acetaminophen 500 Mg Tablet PO 1,000 mg Q6H PRN Administration fever or pain 1-3 Albuterol/Ipratropium 3 ml 03/30/25 04:29 03/30/25 05:49 Ipratropium 0.5 Mg/Albuterol Sulfate 2.5 Mg Ampul.Neb 3 Ml INHALATION 3 ml Q6HRT PRN Administration Wheezing Amlodipine Besylate 5 mg 04/10/25 09:00 04/23/25 09:24 Amlodipine Besylate 5 Mg Tablet PO 5 mg DAILY JAYDEN Administration Apixaban 5 mg 04/17/25 21:00 04/21/25 08:19 Apixaban 5 Mg Tablet PO 5 mg Q12HR JAYDEN Administration Cyclobenzaprine HCl 5 mg 04/18/25 16:00 04/23/25 09:24 Cyclobenzaprine Hcl 5 Mg Tablet PO 5 mg Q12HR JAYDEN Administration Levetiracetam 1,500 mg 04/17/25 09:00 04/23/25 09:24 Levetiracetam 500 Mg Tablet PO 1,500 mg Q12HR JAYDEN Administration Magnesium Oxide 200 mg 04/20/25 21:00 04/22/25 20:42 Magnesium Oxide 200 Mg Tablet PO 200 mg HS JAYDEN Administration Mirtazapine 15 mg 04/14/25 21:00 04/22/25 20:42 Mirtazapine 15 Mg Tablet PO 15 mg HS JAYDEN Administration Naloxone HCl 0.1 mg 03/29/25 00:02 Naloxone Hcl 0.4 Mg/Ml Vial IV PUSH Q2M PRN Opiate Reversal Ondansetron HCl 4 mg 03/26/25 14:08 Ondansetron Inj 4 Mg/2 Ml Vial IV PUSH Q6H PRN Nausea And Vomiting Oxycodone HCl 2.5 mg 04/18/25 14:11 04/22/25 08:31 Oxycodone Hcl (*Crx) 2.5 Mg Tab Ir PO 2.5 mg Q4H PRN Administration Pain Rated 4-6 Oxycodone HCl 5 mg 04/18/25 14:11 04/23/25 02:29 Oxycodone Hcl (*Crx) 5 Mg Tab Ir PO 5 mg Q4H PRN Administration Pain Rated 7-10 Sertraline HCl 25 mg 04/06/25 18:00 04/23/25 09:24 Sertraline Hcl 25 Mg Tablet PO 25 mg QAM JAYDEN Administration Simethicone 80 mg 04/05/25 17:41 04/19/25 09:32 Simethicone 80 Mg Tab.Chew PO 80 mg QID PRN Administration Gas Discomfort Sodium Chloride 20 ml 03/29/25 09:36 Central Line Flush IV PUSH PRN PRN after blood draws Radiology Results: ITS Impressions Modified Barium Swallow 03/27/25 15:26 IMPRESSION: Oropharyngeal dysphagia with intermittent laryngeal penetration with indeterminate/possible minimal aspiration. Please correlate with speech pathologist findings and specific feeding recommendations. Brain MRI 03/27/25 15:28 IMPRESSION: 1. Normal aging brain with minimal periventricular calcific white matter T2 hyperintensity consistent with chronic small vessel ischemic disease. No acute intracranial process. Cervical Spine MRI 03/28/25 08:39 Impression: Fractured the base of the odontoid process possibly extending from the C2 vertebral body detailed above, most compatible with acute fracture. There is minimal marrow edema and suggestion of possible early cortication along the fracture margins. Alignment appears unchanged as compared to prior CT scans. Anterior fusion of C5 and C6. Moderate to advanced degenerative spondylosis otherwise, as detailed above, with multilevel neural foraminal narrowing. Abdomen X-Ray 04/01/25 10:44 IMPRESSION: 1. Nasogastric tube in the stomach. Chest X-Ray 04/04/25 14:06 IMPRESSION: Inadvertent withdrawal of the previously identified PICC line, which now projects over the right subclavian vein, as detailed above. Venous Doppler Study 04/05/25 11:34 IMPRESSION: 1. Bilateral upper extremity venous thrombosis with deep venous thrombosis of the right subclavian and axillary veins. Head CT 04/10/25 10:35 IMPRESSION: 1. No acute intracranial process. 2. Age-related changes including mild to moderate diffuse volume loss and mild scattered white matter attenuation consistent with chronic small vessel ischemic disease. 3. Chronic left frontal craniotomy. Chest/Abdomen/Pelvis CT 04/10/25 10:37 IMPRESSION: 1. Change of recent partial colectomy with left lower quadrant colostomy. No abscess or bowel obstruction. 2. Mild cardiomegaly. No acute cardiopulmonary disease. 3. Nonobstructing nephrolithiasis. Cervical Spine X-Ray 04/18/25 18:30 IMPRESSION: No definite acute osseous abnormality cervical spine. C2 is not very clear. Multilevel degenerative disc disease. Labs Labs: Laboratory Results - last 24 hr 04/23/25 04:25 WBC 4.5 RBC 3.34 L Hgb 8.3 L Hct 28.4 L MCV 85.0 MCH 24.9 L MCHC 29.2 L RDW 17.6 H Plt Count 246 MPV 10.3 Immature Gran % (Auto) 0.7 H Neut % (Auto) 71.4 Lymph % (Auto) 21.0 [place] % (Auto) 6.0 Eos % (Auto) 0.7 Baso % (Auto) 0.2 Lymph # (Auto) 0.94 [place] # (Auto) 0.3 Eos # (Auto) 0.0 Baso # (Auto) 0.0 Abs Immat Gran (auto) 0.03 Absolute Neuts (auto) 3.2 Absolute Nucleated RBC 0.000 Band Neutrophils % 0 Nucleated RBC % 0.0 Platelet Estimate Adequate Hypochromasia 1+ Poikilocytosis 1+ Anisocytosis 1+ Schistocytes None seen Sodium 134 L Potassium 4.0 Chloride 101 Carbon Dioxide 26 Anion Gap 7 BUN 15 D Creatinine 0.55 L Estim Creat Clear Calc 72 Estimated GFR > 60 Glucose 132 H Calcium 8.6 Phosphorus 3.2
[2025-04-23] MEDS: MAGNESIUM OXIDE 200 MG TABLET PO (21:14)
[2025-04-23] MEDS: MIRTAZAPINE 15 MG TABLET PO (21:14)
[2025-04-24] VITALS (10 sets, daily range): BP systolic 110–121; BP diastolic 62–68; PULSE 109–115; RESP 14–16; TEMP 36.1–36.6; O2SAT 99–100; BMI 10.0
[2025-04-24] MEDS: oxyCODONE HCL (*CRX) 5 MG TAB IR PO (04:51)
[2025-04-24 05:29] LABS: Basophils Percent Auto 0.3 % (0.2-1.2); Hematocrit 26.1 % (37.0-47.0); Hemoglobin 7.6 g/dL (12.0-15.0); Immature Granulocyte Absolute 0.03 K/mm3 (0.00-0.031); Immature Granulocyte Percent A 0.8 % (0-0.5); Lymphocytes Absolute Auto 0.95 K/mm3 (0.9-3.2); Lymphocytes Percent Auto 24.9 % (18.3-44.2); Mean Corpuscular HGB Conc 29.1 g/dl (32-36); Mean Corpuscular Hemoglobin 24.8 pg (26-34); Mean Platelet Volume 10.5 fl (7.4-10.4); Monocytes Absolute Auto 0.3 K/mm3 (0.1-0.6); Monocytes Percent Auto 7.9 % (2.6-8.5); Neutrophils Absolute Auto 2.5 K/mm3 (1.3-6.7); Neutrophils Percent Auto 65.1 % (45.5-73.1); Platelet Count Result 279 k/mm3 (150-375); Red Blood Count 3.07 M/mm3 (4.2-5.4); Red Cell Distribution Width 17.5 % (11.5-14.5); White Blood Count 3.8 K/mm3 (4.5-10.0)
[2025-04-24 05:47] LABS: Alanine Aminotransferase 55 U/L (6-35); Albumin Level 3.1 g/dL (3.5-5.1); Alkaline Phosphatase 194 U/L (38-126); Anion Gap 8 mmol/L (4-12); Aspartate Amino Transferase 74 U/L (14-36); Bilirubin,Total 0.3 mg/dL (0.2-1.3); Blood Urea Nitrogen 15 mg/dL (7-17); Calcium 8.5 mg/dL (8.4-10.2); Carbon Dioxide 26 mmol/L (22-30); Chloride 102 mmol/L (98-107); Estimated CRCL calculation 92 ml/min; Estimated Glomerular Filt Rate > 60; Glucose 148 mg/dL (65-110); Magnesium 2.3 mg/dL (1.6-2.3); Sodium 136 mmol/L (137-145); Total Protein 7.5 g/dL (6.3-8.2)
[2025-04-24 05:53] LABS: Iron 35 ug/dL (37-170)
[2025-04-24 05:57] LABS: Anisocytosis 1+; Hypochromasia 1+; Platelet Estimate Adequate (Adequate); Poikilocytosis 1+
[2025-04-24 05:58] LABS: Burr Cells 1+; Ovalocytes 1+; Schistocytes Rare
[2025-04-24 06:06] LABS: Percent Iron Saturation 15 % (20-50)
[2025-04-24] MEDS: amLODIPine BESYLATE 5 MG TABLET PO (08:43)
[2025-04-24] MEDS: SERTRALINE HCL 25 MG TABLET PO (08:43)
[2025-04-24] MEDS: CYCLOBENZAPRINE HCL 5 MG TABLET PO ×2 (08:43→22:57)
[2025-04-24] MEDS: levETIRAcetam 500 MG TABLET 1500 MG PO ×2 (08:43→22:57)
[2025-04-24] MEDS: IRON SUCROSE COMPLEX 400 MG, IRON SUCROSE COMPLEX 100 MG in SODIUM CHLORIDE 0.9% IV 250 ML 78.57 MG IVPB (08:50)
--- NOTE | 2025-04-24 11:06 | P.PNIM_ITS ---
Progress Note: A&P Assessment and Plan (1) Dysphagia: Qualifiers: Dysphagia type: oropharyngeal phase Qualified Code(s): R13.12 - Dysphagia, oropharyngeal phase Code(s): R13.10 - Dysphagia, unspecified Status: Acute Assessment and Plan: Speech therapy note from 03/27 showing they recommend minced and moist Level 5. Repeat eval showing patient failed her swallow study 04/01. Speech Therapy following and patient able to be advanced back to minced and moist Level 5. patient reversed DNR last week to full code Daughter noted that patient they will meet as s a family and decided on G-tube placement Status post G-tube placement 04/22/2025 now on tube feeding (2) Decreased oral intake: Code(s): R63.8 - Other symptoms and signs concerning food and fluid intake Status: Acute Assessment and Plan: Failure to thrive Mirtazapine increased. Avoiding Megace due to DVT. Status post G-tube placement 04/22/2025 continue tube feeding (3) DVT (deep venous thrombosis): Code(s): I82.409 - Acute embolism and thrombosis of unspecified deep veins of unspecified lower extremity Status: Acute Assessment and Plan: Venous Doppler shows thrombus in the left cephalic and basilic veins and left upper extremity. Despite being on DVT prophylaxis now has DVT right subclavian, axillary and basilic veins likely PICC line associated. Switched to therapeutic Lovenox on 04/05/25. However had to hold due to blood in ostomy. H&H monitored and subsequently Lovenox resumed Picc line removed on 04/11/25. Changed to Eliquis and start 5mg Q12h since been on therapeutic Lovenox. Currently on hold for G-tube placement. Hold For another 2 days tentative resumption day 04/24/2025 (4) Acute respiratory failure: Code(s): J96.00 - Acute respiratory failure, unspecified whether with hypoxia or hypercapnia Status: Acute Assessment and Plan: Acute Respiratory failure secondary to altered mental status and inability to protect airway Patient was intubated and extubated on 03/30; able to be weaned to room air easily Stable and remains on room air. Avoid sedatives Follow clinically (5) Sepsis: Code(s): A41.9 - Sepsis, unspecified organism Status: Acute Assessment and Plan: Sepsis secondary to bowel perforation, peritonitis UCx negative. BCx negative Treated with Zosyn and has complete a course Sepsis resolved. (6) Perforation bowel: Code(s): K63.1 - Perforation of intestine (nontraumatic) Status: Acute Assessment and Plan: CT A/P 03/28 showing sigmoid diverticulosis with a 6cm cavity consistent with a contained bowel perforation. Gen surgery consulted and she underwent an exploratory laparotomy with sigmoid colon resection with end descending colostomy and an ileal resection with [id number] ileal anastomosis on 03/28/25. Management per General surgery. Surgery okayed to restart lovenox. Antibiotics as above and has completed a course (7) Altered mental status: Code(s): R41.82 - Altered mental status, unspecified Status: Acute Assessment and Plan: Patient presented with altered mental status. Patient also has history of seizure disorder and may have had seizure and be postictal. Other possibilities are sepsis as she had a perforated bowel; rapid response felt secondary to deterioration of mental status from Dilaudid. MRI brain 03/27 showed no acute intracranial process. EEG 03/29 showing nearly continuous focal slow wave activity intermixed with sharp wave transients were seen over left frontal area. This may relate to having previous surgery in this area. Focal slowing is suggestive of underlying structural lesion. Sharp transients are considered nonspecific focal interictal abnormality. Mild background slowing suggestive of generalized encephalopathy. TSH and B12 normal. Ammonia normal Neurology following Repeat EEG 04/14 showing abnormal EEG due to presence of diffuse background slowing suggestive of generalized encephalopathy. No focal or paroxysmal epileptiform abnormality was seen. Patient is awake but confused. She has a hx of SDH and subarachnoid hemorrhage. She may be close to her baseline. (8) C2 cervical fracture: Code(s): S12.100A - Unspecified displaced fracture of second cervical vertebra, initial encounter for closed fracture Status: Inactive Assessment and Plan: Patient had a C2 fracture from a fall in February prior to this admission Patient was evaluated by Neurosurgery. MRI C-spine showed a fracture at the base of the odontoid process possibly extending from the C2 vertebral body, most compatible with acute fracture. There is minimal marrow edema and suggestion of possible early cortication along the fracture margins. Alignment appears unchanged as compared to prior CT scans. Neurosurgery evaluated noted, recommended non operative care with soft cervical collar continue soft cervical collar per neurrosuergy (9) Seizure disorder: Code(s): G40.909 - Epilepsy, unspecified, not intractable, without status epilepticus Status: Acute Assessment and Plan: History of seizure disorder. Continue Keppra. EEG as above. Neurology following. Change to oral Keppra (10) Anemia: Code(s): D64.9 - Anemia, unspecified Status: Acute Assessment and Plan: 03/30 Hemoglobin 6.2 likely secondary to surgery and hemodilution. No objective evidence of bleeding at this time. Stool is brown Transfused 1 unit PRBC Isat 9 and Hb 7.6 Started on IV Iron 500/1000 monitor (11) Depression: Code(s): F32.A - Depression, unspecified Status: Acute Assessment and Plan: Patient with ongoing MDD with lack of motivation Zoloft and then mirtazapine added, consider increasing zoloft Continue to monitor mood (12) GI bleed: Code(s): K92.2 - Gastrointestinal hemorrhage, unspecified Status: Acute Assessment and Plan: Brown stool in colostomy General surgery and GI following. Hgb remains stable. Iron panel pending Monitor (13) Hypokalemia: Code(s): E87.6 - Hypokalemia Status: Acute Assessment and Plan: resolved K 4.0 (14) UTI (urinary tract infection): Code(s): N39.0 - Urinary tract infection, site not specified Status: Resolved Assessment and Plan: UA noted. UCx negative. UTI ruled out At risk with chronic Post (15) Goals of care, counseling/discussion: Code(s): Z71.89 - Other specified counseling Status: Acute Assessment and Plan: Patient full code currently Plan DVT prophylaxis - SCD, Lovenox Code Status - Full Code Subjective Date/time seen: 04/24/25 11:06 Interval history: Comfortable at bedside and tolerating tube feeding Iron saturation is low and patient is on IV iron replacement Review of Systems Review of Systems: All systems reviewed & are unremarkable except as noted in HPI and below ROS unobtainable: Yes unobtainable due to endotracheal tube, unobtainable due to medical condition and unobtainable due to mental status Exam Narrative: Gen - NARD Neck - cervical collar in place Chest - clear anteriorly except decreased BS in the right flank; nml RR CV - RRR S1/S2. Tele showing occasional PVCs o/w no acute dysrhythmias Abd - Soft, NT. LLQ ostomy secured with liquid brown stool in bag. Midline incision clean and dry Ext - No pedal edema Neuro - Alert and oriented x1 Psych - pleasant, but minimally participatory Skin - Warm and dry, no wounds or rashes Const: General: comfortable, no acute distress, alert and awake Orientation/consciousness: oriented to person Other: Spoke softly, following commands HENMT: Ears: TM's normal bilaterally Face/Nose/Sinus: Normal nares present Mouth: Yes moist mucous membranes Other: C-collar in place Eyes: General: appearance normal, both eyes and all related structures Sclera: sclerae normal Pupils: Equal, round and reactive pupils present Neck: Neck: supple and no JVD Resp: Effort & Inspection: normal respiratory effort Auscultation: clear to auscultation bilaterally Cardio: Rate: regular rate and tachycardic Rhythm: regular rhythm Other: Telemetry- SR 92. GI: Auscultation: normal bowel sounds Other: Colostomy with brown stool. Urinary Catheter: Urinary Catheter: patent and draining and urine clear Skin: General skin exam: normal color and no rashes or lesions noted Wounds: no wounds Neuro: General: oriented to person, Normal light touch and pain sensation and Unable to assess gait Cranial nerves: Yes facial sensation intact/muscles of mastication intact and Yes Equal, round and reactive pupils present Speech: normal speech and aphasia Gait exam (Neuro): Unable to assess gait Motor exam (neuro): Abnormal motor strength present (RUE weaker then LT ) Sensory Exam: normal sensation Other: Patient not answering questions but would moan and talk to God asking him to help her. Extrem: General: normal to inspection and no pedal edema Other: no edema right upper extremity swelling noted. PICC line in situ. Psych: Mental Status: mental status grossly normal Affect: normal affect Other: Pleasant. Know she is at the hospital and that is 2024. Objective Data Vital Signs Vital Signs: Vital Signs - 24 hr 04/23/25 12:02 04/23/25 14:00 04/23/25 16:02 Temperature 98.8 F Pulse Rate 115 H 110 H 116 H Respiratory Rate 20 Blood Pressure 119/62 Pulse Oximetry 100 Oxygen Delivery 04/23/25 19:35 04/23/25 20:00 04/23/25 20:00 Temperature 98.4 F Pulse Rate 110 H 114 H Respiratory Rate 16 Blood Pressure 112/63 Pulse Oximetry 100 Oxygen Delivery Room Air 04/24/25 00:00 04/24/25 04:00 04/24/25 05:17 Temperature 97.9 F Pulse Rate 114 H 110 H 109 H Respiratory Rate 16 Blood Pressure 121/62 Pulse Oximetry 100 Oxygen Delivery Intake/Output Intake/Output: Intake & Output 04/21/25 04/22/25 04/23/25 04/24/25 23:59 23:59 23:59 23:59 Intake Total 50 200 1887 Output Total 121 408 4247 365 Balance -450 -550 637 -365 Meds/Results Medications: Active Medications Generic Name Dose Route Start Last Admin Trade Name Freq PRN Reason Stop Dose Admin Acetaminophen 1,000 mg 04/04/25 14:11 04/18/25 09:32 Acetaminophen 500 Mg Tablet PO 1,000 mg Q6H PRN Administration fever or pain 1-3 Albuterol/Ipratropium 3 ml 03/30/25 04:29 03/30/25 05:49 Ipratropium 0.5 Mg/Albuterol Sulfate 2.5 Mg Ampul.Neb 3 Ml INHALATION 3 ml Q6HRT PRN Administration Wheezing Amlodipine Besylate 5 mg 04/10/25 09:00 04/24/25 08:43 Amlodipine Besylate 5 Mg Tablet PO 5 mg DAILY JAYDEN Administration Apixaban 5 mg 04/17/25 21:00 04/21/25 08:19 Apixaban 5 Mg Tablet PO 5 mg Q12HR JAYDEN Administration Cyclobenzaprine HCl 5 mg 04/18/25 16:00 04/24/25 08:43 Cyclobenzaprine Hcl 5 Mg Tablet PO 5 mg Q12HR JAYDEN Administration Iron Sucrose 400 mg/ Iron 275 mls @ 78.571 mls/hr 04/24/25 07:46 04/24/25 08:50 Sucrose 100 mg/ Sodium IVPB 04/24/25 11:15 78.57 mls/hr Chloride ONCE ONE Administration Levetiracetam 1,500 mg 04/17/25 09:00 04/24/25 08:43 Levetiracetam 500 Mg Tablet PO 1,500 mg Q12HR JAYDEN Administration Magnesium Oxide 200 mg 04/20/25 21:00 04/23/25 21:14 Magnesium Oxide 200 Mg Tablet PO 200 mg HS JAYDEN Administration Mirtazapine 15 mg 04/14/25 21:00 04/23/25 21:14 Mirtazapine 15 Mg Tablet PO 15 mg HS JAYDEN Administration Naloxone HCl 0.1 mg 03/29/25 00:02 Naloxone Hcl 0.4 Mg/Ml Vial IV PUSH Q2M PRN Opiate Reversal Ondansetron HCl 4 mg 03/26/25 14:08 Ondansetron Inj 4 Mg/2 Ml Vial IV PUSH Q6H PRN Nausea And Vomiting Oxycodone HCl 2.5 mg 04/18/25 14:11 04/22/25 08:31 Oxycodone Hcl (*Crx) 2.5 Mg Tab Ir PO 2.5 mg Q4H PRN Administration Pain Rated 4-6 Oxycodone HCl 5 mg 04/18/25 14:11 04/24/25 04:51 Oxycodone Hcl (*Crx) 5 Mg Tab Ir PO 5 mg Q4H PRN Administration Pain Rated 7-10 Sertraline HCl 25 mg 04/06/25 18:00 04/24/25 08:43 Sertraline Hcl 25 Mg Tablet PO 25 mg QAM JAYDEN Administration Simethicone 80 mg 04/05/25 17:41 04/19/25 09:32 Simethicone 80 Mg Tab.Chew PO 80 mg QID PRN Administration Gas Discomfort Sodium Chloride 20 ml 03/29/25 09:36 Central Line Flush IV PUSH PRN PRN after blood draws Radiology Results: ITS Impressions Modified Barium Swallow 03/27/25 15:26 IMPRESSION: Oropharyngeal dysphagia with intermittent laryngeal penetration with indeterminate/possible minimal aspiration. Please correlate with speech pathologist findings and specific feeding recommendations. Brain MRI 03/27/25 15:28 IMPRESSION: 1. Normal aging brain with minimal periventricular calcific white matter T2 hyperintensity consistent with chronic small vessel ischemic disease. No acute intracranial process. Cervical Spine MRI 03/28/25 08:39 Impression: Fractured the base of the odontoid process possibly extending from the C2 vertebral body detailed above, most compatible with acute fracture. There is minimal marrow edema and suggestion of possible early cortication along the fracture margins. Alignment appears unchanged as compared to prior CT scans. Anterior fusion of C5 and C6. Moderate to advanced degenerative spondylosis otherwise, as detailed above, with multilevel neural foraminal narrowing. Abdomen X-Ray 04/01/25 10:44 IMPRESSION: 1. Nasogastric tube in the stomach. Chest X-Ray 04/04/25 14:06 IMPRESSION: Inadvertent withdrawal of the previously identified PICC line, which now projects over the right subclavian vein, as detailed above. Venous Doppler Study 04/05/25 11:34 IMPRESSION: 1. Bilateral upper extremity venous thrombosis with deep venous thrombosis of the right subclavian and axillary veins. Head CT 04/10/25 10:35 IMPRESSION: 1. No acute intracranial process. 2. Age-related changes including mild to moderate diffuse volume loss and mild scattered white matter attenuation consistent with chronic small vessel ischemic disease. 3. Chronic left frontal craniotomy. Chest/Abdomen/Pelvis CT 04/10/25 10:37 IMPRESSION: 1. Change of recent partial colectomy with left lower quadrant colostomy. No abscess or bowel obstruction. 2. Mild cardiomegaly. No acute cardiopulmonary disease. 3. Nonobstructing nephrolithiasis. Cervical Spine X-Ray 04/18/25 18:30 IMPRESSION: No definite acute osseous abnormality cervical spine. C2 is not very clear. Multilevel degenerative disc disease. Labs Labs: Laboratory Results - last 24 hr 04/24/25 04:37 WBC 3.8 L RBC 3.07 L Hgb 7.6 L Hct 26.1 L MCV 85.0 MCH 24.8 L MCHC 29.1 L RDW 17.5 H Plt Count 279 MPV 10.5 H Immature Gran % (Auto) 0.8 H Neut % (Auto) 65.1 Lymph % (Auto) 24.9 [place] % (Auto) 7.9 Eos % (Auto) 1.0 Baso % (Auto) 0.3 Lymph # (Auto) 0.95 [place] # (Auto) 0.3 Eos # (Auto) 0.0 Baso # (Auto) 0.0 Abs Immat Gran (auto) 0.03 Absolute Neuts (auto) 2.5 Absolute Nucleated RBC 0.000 Band Neutrophils % Not Reportable Nucleated RBC % 0.0 Platelet Estimate Adequate Hypochromasia 1+ Poikilocytosis 1+ Anisocytosis 1+ Ovalocytes 1+ [place] Cells 1+ Schistocytes Rare Sodium 136 L Potassium 4.0 Chloride 102 Carbon Dioxide 26 Anion Gap 8 BUN 15 Creatinine 0.42 L Estim Creat Clear Calc 92 Estimated GFR > 60 Glucose 148 H Calcium 8.5 Magnesium 2.3 Iron 35 L TIBC 239 L % Saturation 15 L Ferritin 116.00 Total Bilirubin 0.3 AST 74 H ALT 55 H Alkaline Phosphatase 194 H Total Protein 7.5 Albumin 3.1 L Quality VTE Prophylaxis VTE prophylaxis: pharmacologic ordered
[2025-04-24] MEDS: MIRTAZAPINE 15 MG TABLET PO (22:57)
[2025-04-24] MEDS: MAGNESIUM OXIDE 200 MG TABLET PO (22:58)
[2025-04-25] VITALS (9 sets, daily range): BP systolic 103–116; BP diastolic 63–71; PULSE 108–118; RESP 16; TEMP 36.5–36.8; O2SAT 100; BMI 10.0
[2025-04-25 05:03] LABS: Basophils Percent Auto 0.2 % (0.2-1.2); Eosinophils Absolute Auto 0.1 K/mm3 (0-0.3); Eosinophils Percent Auto 2.6 % (0-4.4); Hematocrit 24.7 % (37.0-47.0); Hemoglobin 7.1 g/dL (12.0-15.0); Immature Granulocyte Absolute 0.03 K/mm3 (0.00-0.031); Immature Granulocyte Percent A 0.7 % (0-0.5); Lymphocytes Absolute Auto 0.95 K/mm3 (0.9-3.2); Lymphocytes Percent Auto 22.8 % (18.3-44.2); Mean Corpuscular HGB Conc 28.7 g/dl (32-36); Mean Corpuscular Hemoglobin 24.8 pg (26-34); Mean Corpuscular Volume 86.4 fl (80-100); Mean Platelet Volume 9.7 fl (7.4-10.4); Monocytes Absolute Auto 0.3 K/mm3 (0.1-0.6); Monocytes Percent Auto 7.2 % (2.6-8.5); Neutrophils Absolute Auto 2.8 K/mm3 (1.3-6.7); Neutrophils Percent Auto 66.5 % (45.5-73.1); Platelet Count Result 237 k/mm3 (150-375); Red Blood Count 2.86 M/mm3 (4.2-5.4); Red Cell Distribution Width 17.3 % (11.5-14.5); White Blood Count 4.2 K/mm3 (4.5-10.0)
[2025-04-25 05:13] LABS: Alanine Aminotransferase 52 U/L (6-35); Alkaline Phosphatase 163 U/L (38-126); Anion Gap 7 mmol/L (4-12); Aspartate Amino Transferase 60 U/L (14-36); Bilirubin,Total 0.2 mg/dL (0.2-1.3); Blood Urea Nitrogen 12 mg/dL (7-17); Calcium 8.4 mg/dL (8.4-10.2); Carbon Dioxide 27 mmol/L (22-30); Chloride 103 mmol/L (98-107); Estimated CRCL calculation 107 ml/min; Estimated Glomerular Filt Rate > 60; Glucose 133 mg/dL (65-110); Potassium 3.9 mmol/L (3.4-5.0); Sodium 137 mmol/L (137-145); Total Protein 7.2 g/dL (6.3-8.2)
[2025-04-25 05:24] LABS: Anisocytosis 1+; Band Neutrophils Percent 0 % (0-6); Hypochromasia 1+; Ovalocytes 1+; Platelet Estimate Adequate (Adequate); Schistocytes None Seen
[2025-04-25] MEDS: oxyCODONE HCL (*CRX) 2.5 MG TAB IR PO (06:27)
[2025-04-25] MEDS: amLODIPine BESYLATE 5 MG TABLET PO (09:02)
[2025-04-25] MEDS: SERTRALINE HCL 25 MG TABLET PO (09:03)
[2025-04-25] MEDS: levETIRAcetam 500 MG TABLET 1500 MG PO ×2 (09:03→22:10)
[2025-04-25] MEDS: CYCLOBENZAPRINE HCL 5 MG TABLET PO ×2 (09:03→22:10)
--- NOTE | 2025-04-25 10:24 | PCNFU ---
Nutrition Follow-Up Complete: Inadequate energy intake related to altered GI function, mechanical ventilation as evidenced by NPO Goal: Meet estimated nutrition needs when medically able Patient will continue current goal. Pt current nutrition is Minced and Moist, Level 5 with g tube feedings of Jevity 1.5 at 55 ml/hr. Last recorded weight is 70.9 kg noted. Weight has been between 73-75 kg since admit. Would recommend reweight. Bowel Motility: last reported BM 04/25 Labs Reviewed: Glu 133, Cr 0.35, Alb 3.0 Meds Noted: Protonix, Remeron, Zofran, Keppra Skin: WNL Additional Notes: Patient is tolerating tube feedings of Jevity 1.5 at 55 ml/hr. Providing 1815 kcal/77 gm protein/919 ml water. Flush 150 ml q 4 hours. Tube feedings meeting 100% kcal needs at 25 kcal/kg and 89% protein needs at 1.2 gm/kg. Oral Intake is poor but patient is able to eat as tolerated. Ensure Enlive is also being sent for additional 350 kcal and 20 gm protein. Monitoring orders, plan of care, weights, labs, output every Monday and Monday.
[2025-04-25 12:43] LABS: Hematocrit 24.6 % (37.0-47.0); Hemoglobin 7.2 g/dL (12.0-15.0)
--- NOTE | 2025-04-25 13:28 | P.PNIM_ITS ---
Progress Note: A&P Assessment and Plan (1) Dysphagia: Qualifiers: Dysphagia type: oropharyngeal phase Qualified Code(s): R13.12 - Dysphagia, oropharyngeal phase Code(s): R13.10 - Dysphagia, unspecified Status: Acute Assessment and Plan: Speech therapy note from 03/27 showing they recommend minced and moist Level 5. Repeat eval showing patient failed her swallow study 04/01. Speech Therapy following and patient able to be advanced back to minced and moist Level 5. patient reversed DNR last week to full code Status post G-tube placement 04/22/2025 on tube feeding (2) Decreased oral intake: Code(s): R63.8 - Other symptoms and signs concerning food and fluid intake Status: Acute Assessment and Plan: Failure to thrive Mirtazapine increased. Avoiding Megace due to DVT. Status post G-tube placement 04/22/2025 continue tube feeding (3) DVT (deep venous thrombosis): Code(s): I82.409 - Acute embolism and thrombosis of unspecified deep veins of unspecified lower extremity Status: Acute Assessment and Plan: Venous Doppler shows thrombus in the left cephalic and basilic veins and left upper extremity. Despite being on DVT prophylaxis now has DVT right subclavian, axillary and basi lic veins likely PICC line associated. Switched to therapeutic Lovenox on 04/05/25. However had to hold due to blood in ostomy. H&H monitored and subsequently Lovenox resumed Picc line removed on 04/11/25. Eliquis has been on hold for G-tube placement. Will resume Eliquis today. Will monitor overnight. (4) Acute respiratory failure: Code(s): J96.00 - Acute respiratory failure, unspecified whether with hypoxia or hypercapnia Status: Acute Assessment and Plan: Acute Respiratory failure secondary to altered mental status and inability to protect airway Patient was intubated and extubated on 03/30; able to be weaned to room air easily Stable and remains on room air. Avoid sedatives Follow clinically (5) Sepsis: Code(s): A41.9 - Sepsis, unspecified organism Status: Acute Assessment and Plan: Sepsis secondary to bowel perforation, peritonitis UCx negative. BCx negative Treated with Zosyn and has complete a course Sepsis resolved. (6) Perforation bowel: Code(s): K63.1 - Perforation of intestine (nontraumatic) Status: Acute Assessment and Plan: CT A/P 03/28 showing sigmoid diverticulosis with a 6cm cavity consistent with a contained bowel perforation. Gen surgery consulted and she underwent an exploratory laparotomy with sigmoid colon resection with end descending colostomy and an ileal resection with [id number] ileal anastomosis on 03/28/25. Management per General surgery. Antibiotics as above and has completed a course (7) Altered mental status: Code(s): R41.82 - Altered mental status, unspecified Status: Acute Assessment and Plan: Patient presented with altered mental status. Patient also has history of seizure disorder and may have had seizure and be postictal. Other possibilities are sepsis as she had a perforated bowel; rapid response felt secondary to deterioration of mental status from Dilaudid. MRI brain 03/27 showed no acute intracranial process. EEG 03/29 showing nearly continuous focal slow wave activity intermixed with sharp wave transients were seen over left frontal area. This may relate to having previous surgery in this area. Focal slowing is suggestive of underlying structural lesion. Sharp transients are considered nonspecific focal interictal abnormality. Mild background slowing suggestive of generalized encephalopathy. TSH and B12 normal. Ammonia normal Neurology following Repeat EEG 04/14 showing abnormal EEG due to presence of diffuse background slowing suggestive of generalized encephalopathy. No focal or paroxysmal epileptiform abnormality was seen. Patient is awake but confused. She has a hx of SDH and subarachnoid hemorrhage. She may be close to her baseline. (8) C2 cervical fracture: Code(s): S12.100A - Unspecified displaced fracture of second cervical vertebra, initial encounter for closed fracture Status: Inactive Assessment and Plan: Patient had a C2 fracture from a fall in February prior to this admission Patient was evaluated by Neurosurgery. MRI C-spine showed a fracture at the base of the odontoid process possibly extending from the C2 vertebral body, most compatible with acute fracture. There is minimal marrow edema and suggestion of possible early cortication along the fracture margins. Alignment appears unchanged as compared to prior CT scans. Neurosurgery evaluated noted, recommended non operative care with soft cervical collar continue soft cervical collar per neurrosuergy (9) Seizure disorder: Code(s): G40.909 - Epilepsy, unspecified, not intractable, without status epilepticus Status: Acute Assessment and Plan: History of seizure disorder. Continue Keppra. EEG as above. Neurology following. Change to oral Keppra (10) Anemia: Code(s): D64.9 - Anemia, unspecified Status: Acute Assessment and Plan: 03/30 Hemoglobin 6.2 likely secondary to surgery and hemodilution. No objective evidence of bleeding at this time. Stool is brown Hb 7.1 monitor (11) Depression: Code(s): F32.A - Depression, unspecified Status: Acute Assessment and Plan: Patient with ongoing MDD with lack of motivation Zoloft and then mirtazapine added, consider increasing zoloft Continue to monitor mood (12) GI bleed: Code(s): K92.2 - Gastrointestinal hemorrhage, unspecified Status: Acute Assessment and Plan: Brown stool in colostomy General surgery and GI following. Hgb remains stable. Iron panel pending Monitor (13) Hypokalemia: Code(s): E87.6 - Hypokalemia Status: Acute Assessment and Plan: resolved K 4.0 (14) UTI (urinary tract infection): Code(s): N39.0 - Urinary tract infection, site not specified Status: Resolved Assessment and Plan: UA noted. UCx negative. UTI ruled out At risk with chronic Post (15) Goals of care, counseling/discussion: Code(s): Z71.89 - Other specified counseling Status: Acute Assessment and Plan: Patient full code currently Plan DVT prophylaxis - SCD, Eliquis Code Status - Full Code Subjective Date/time seen: 04/25/25 13:28 Interval history: Patient was seen and examined at bedside. She is feeling fine. Denies any chest pain, shortness of breath, abd pain, nausea vomiting Comfortable at bedside and tolerating tube feeding . Hemoglobin dropped to 7.1. We will repeat hemoglobin. Please decide about starting Eliquis pending lab result Review of Systems Review of Systems: All systems reviewed & are unremarkable except as noted in HPI and below ROS unobtainable: Yes unobtainable due to endotracheal tube, unobtainable due to medical condition and unobtainable due to mental status Exam Narrative: Gen - NARD Neck - cervical collar in place Chest - clear anteriorly except decreased BS in the right flank; nml RR CV - RRR S1/S2. Tele showing occasional PVCs o/w no acute dysrhythmias Abd - Soft, NT. LLQ ostomy secured with liquid brown stool in bag. Midline incision clean and dry Ext - No pedal edema Neuro - Alert and oriented x1 Psych - pleasant, but minimally participatory Skin - Warm and dry, no wounds or rashes Const: General: comfortable, no acute distress, alert and awake Orientation/consciousness: oriented to person Other: Spoke softly, following commands HENMT: Ears: TM's normal bilaterally Face/Nose/Sinus: Normal nares present Mouth: Yes moist mucous membranes Other: C-collar in place Eyes: General: appearance normal, both eyes and all related structures Sclera: sclerae normal Pupils: Equal, round and reactive pupils present Neck: Neck: supple and no JVD Resp: Effort & Inspection: normal respiratory effort Auscultation: clear to auscultation bilaterally Cardio: Rate: regular rate and tachycardic Rhythm: regular rhythm Other: Telemetry- SR 92. GI: Auscultation: normal bowel sounds Other: Colostomy with brown stool. Urinary Catheter: Urinary Catheter: patent and draining and urine clear Skin: General skin exam: normal color and no rashes or lesions noted Wounds: no wounds Neuro: General: oriented to person, Normal light touch and pain sensation and Unable to assess gait Cranial nerves: Yes facial sensation intact/muscles of mastication intact and Yes Equal, round and reactive pupils present Speech: normal speech and aphasia Gait exam (Neuro): Unable to assess gait Motor exam (neuro): Abnormal motor strength present (RUE weaker then LT ) Sensory Exam: normal sensation Other: Patient not answering questions but would moan and talk to God asking him to help her. Extrem: General: normal to inspection and no pedal edema Other: no edema right upper extremity swelling noted. PICC line in situ. Psych: Mental Status: mental status grossly normal Affect: normal affect Other: Pleasant. Know she is at the hospital and that is 2024. Objective Data Vital Signs Vital Signs: Vital Signs - 24 hr 04/24/25 14:00 04/24/25 16:02 04/24/25 20:00 Temperature 97.0 F L Pulse Rate 114 H 112 H 115 H Respiratory Rate 14 Blood Pressure 111/68 Pulse Oximetry 100 Oxygen Delivery Fraction of Inspired Oxygen 04/24/25 20:00 04/24/25 20:29 04/25/25 00:00 Temperature 97.8 F Pulse Rate 113 H 114 H Respiratory Rate 16 Blood Pressure 110/67 Pulse Oximetry 99 Oxygen Delivery Room Air Fraction of Inspired Oxygen 04/25/25 04:00 04/25/25 05:26 04/25/25 08:00 Temperature 97.7 F Pulse Rate 109 H 108 H 115 H Respiratory Rate 16 Blood Pressure 107/67 Pulse Oximetry 100 Oxygen Delivery Fraction of Inspired Oxygen 04/25/25 09:00 Temperature Pulse Rate Respiratory Rate Blood Pressure Pulse Oximetry Oxygen Delivery Room Air Fraction of Inspired Oxygen Intake/Output Intake/Output: Intake & Output 04/22/25 04/23/25 04/24/25 04/25/25 23:59 23:59 23:59 23:59 Intake Total 200 1887 1711 1165 Output Total 750 1250 915 315 Balance -550 637 796 850 Meds/Results Medications: Active Medications Generic Name Dose Route Start Last Admin Trade Name Freq PRN Reason Stop Dose Admin Acetaminophen 1,000 mg 04/04/25 14:11 04/18/25 09:32 Acetaminophen 500 Mg Tablet PO 1,000 mg Q6H PRN Administration fever or pain 1-3 Albuterol/Ipratropium 3 ml 03/30/25 04:29 03/30/25 05:49 Ipratropium 0.5 Mg/Albuterol Sulfate 2.5 Mg Ampul.Neb 3 Ml INHALATION 3 ml Q6HRT PRN Administration Wheezing Amlodipine Besylate 5 mg 04/10/25 09:00 04/25/25 09:02 Amlodipine Besylate 5 Mg Tablet PO 5 mg DAILY JAYDEN Administration Apixaban 5 mg 04/17/25 21:00 04/21/25 08:19 Apixaban 5 Mg Tablet PO 5 mg Q12HR JAYDEN Administration Cyclobenzaprine HCl 5 mg 04/18/25 16:00 04/25/25 09:03 Cyclobenzaprine Hcl 5 Mg Tablet PO 5 mg Q12HR JAYDEN Administration Levetiracetam 1,500 mg 04/17/25 09:00 04/25/25 09:03 Levetiracetam 500 Mg Tablet PO 1,500 mg Q12HR JAYDEN Administration Magnesium Oxide 200 mg 04/20/25 21:00 04/24/25 22:58 Magnesium Oxide 200 Mg Tablet PO 200 mg HS JAYDEN Administration Mirtazapine 15 mg 04/14/25 21:00 04/24/25 22:57 Mirtazapine 15 Mg Tablet PO 15 mg HS JAYDEN Administration Miscellaneous Information 1 each 04/25/25 00:01 Please Renew Ondansetron. Per [employer] Procedure, It Will Discontinue If Not Renewed XX 05/25/25 00:00 CLARIFY JAYDEN Naloxone HCl 0.1 mg 03/29/25 00:02 Naloxone Hcl 0.4 Mg/Ml Vial IV PUSH Q2M PRN Opiate Reversal Ondansetron HCl 4 mg 03/26/25 14:08 Ondansetron Inj 4 Mg/2 Ml Vial IV PUSH Q6H PRN Nausea And Vomiting Oxycodone HCl 2.5 mg 04/18/25 14:11 04/25/25 06:27 Oxycodone Hcl (*Crx) 2.5 Mg Tab Ir PO 2.5 mg Q4H PRN Administration Pain Rated 4-6 Oxycodone HCl 5 mg 04/18/25 14:11 04/24/25 04:51 Oxycodone Hcl (*Crx) 5 Mg Tab Ir PO 5 mg Q4H PRN Administration Pain Rated 7-10 Sertraline HCl 25 mg 04/06/25 18:00 04/25/25 09:03 Sertraline Hcl 25 Mg Tablet PO 25 mg QAM JAYDEN Administration Simethicone 80 mg 04/05/25 17:41 04/19/25 09:32 Simethicone 80 Mg Tab.Chew PO 80 mg QID PRN Administration Gas Discomfort Sodium Chloride 20 ml 03/29/25 09:36 Central Line Flush IV PUSH PRN PRN after blood draws Radiology Results: ITS Impressions Modified Barium Swallow 03/27/25 15:26 IMPRESSION: Oropharyngeal dysphagia with intermittent laryngeal penetration with indeterminate/possible minimal aspiration. Please correlate with speech pathologist findings and specific feeding recommendations. Brain MRI 03/27/25 15:28 IMPRESSION: 1. Normal aging brain with minimal periventricular calcific white matter T2 hyperintensity consistent with chronic small vessel ischemic disease. No acute intracranial process. Cervical Spine MRI 03/28/25 08:39 Impression: Fractured the base of the odontoid process possibly extending from the C2 vertebral body detailed above, most compatible with acute fracture. There is minimal marrow edema and suggestion of possible early cortication along the fracture margins. Alignment appears unchanged as compared to prior CT scans. Anterior fusion of C5 and C6. Moderate to advanced degenerative spondylosis otherwise, as detailed above, with multilevel neural foraminal narrowing. Abdomen X-Ray 04/01/25 10:44 IMPRESSION: 1. Nasogastric tube in the stomach. Chest X-Ray 04/04/25 14:06 IMPRESSION: Inadvertent withdrawal of the previously identified PICC line, which now projects over the right subclavian vein, as detailed above. Venous Doppler Study 04/05/25 11:34 IMPRESSION: 1. Bilateral upper extremity venous thrombosis with deep venous thrombosis of the right subclavian and axillary veins. Head CT 04/10/25 10:35 IMPRESSION: 1. No acute intracranial process. 2. Age-related changes including mild to moderate diffuse volume loss and mild scattered white matter attenuation consistent with chronic small vessel ischemic disease. 3. Chronic left frontal craniotomy. Chest/Abdomen/Pelvis CT 04/10/25 10:37 IMPRESSION: 1. Change of recent partial colectomy with left lower quadrant colostomy. No abscess or bowel obstruction. 2. Mild cardiomegaly. No acute cardiopulmonary disease. 3. Nonobstructing nephrolithiasis. Cervical Spine X-Ray 04/18/25 18:30 IMPRESSION: No definite acute osseous abnormality cervical spine. C2 is not very clear. Multilevel degenerative disc disease. Labs Labs: Laboratory Results - last 24 hr 04/25/25 04/25/25 04:46 12:34 WBC 4.2 L RBC 2.86 L Hgb 7.1 L 7.2 L Hct 24.7 L 24.6 L MCV 86.4 MCH 24.8 L MCHC 28.7 L RDW 17.3 H Plt Count 237 MPV 9.7 Immature Gran % (Auto) 0.7 H Neut % (Auto) 66.5 Lymph % (Auto) 22.8 [place] % (Auto) 7.2 Eos % (Auto) 2.6 Baso % (Auto) 0.2 Lymph # (Auto) 0.95 [place] # (Auto) 0.3 Eos # (Auto) 0.1 Baso # (Auto) 0.0 Abs Immat Gran (auto) 0.03 Absolute Neuts (auto) 2.8 Absolute Nucleated RBC 0.000 Band Neutrophils % 0 Nucleated RBC % 0.0 Platelet Estimate Adequate Hypochromasia 1+ Anisocytosis 1+ Ovalocytes 1+ Schistocytes None seen Sodium 137 Potassium 3.9 Chloride 103 Carbon Dioxide 27 Anion Gap 7 BUN 12 Creatinine 0.35 L Estim Creat Clear Calc 107 Estimated GFR > 60 Glucose 133 H Calcium 8.4 Magnesium 2.0 Total Bilirubin 0.2 AST 60 H ALT 52 H Alkaline Phosphatase 163 H Total Protein 7.2 Albumin 3.0 L Quality VTE Prophylaxis VTE prophylaxis: pharmacologic ordered
[2025-04-25] MEDS: oxyCODONE HCL (*CRX) 5 MG TAB IR PO (18:21)
[2025-04-25 18:58] LABS: Hematocrit 24.2 % (37.0-47.0); Hemoglobin 7.1 g/dL (12.0-15.0)
[2025-04-25] MEDS: MIRTAZAPINE 15 MG TABLET PO (22:10)
[2025-04-25] MEDS: APIXABAN 5 MG TABLET PO (22:10)
[2025-04-25] MEDS: MAGNESIUM OXIDE 200 MG TABLET PO (22:10)
[2025-04-26] VITALS (13 sets, daily range): BP systolic 110–146; BP diastolic 58–79; PULSE 106–119; RESP 10–100; TEMP 36.7–37.2; O2SAT 95–100
[2025-04-26] MEDS: SODIUM CHLORIDE 0.9% IV 1,000 ML 500 ML IV CONT (00:17)
[2025-04-26 00:26] LABS: Hematocrit 23.6 % (37.0-47.0); Mean Corpuscular HGB Conc 28.8 g/dl (32-36); Mean Corpuscular Hemoglobin 24.7 pg (26-34); Mean Corpuscular Volume 85.8 fl (80-100); Mean Platelet Volume 9.7 fl (7.4-10.4); Platelet Count Result 248 k/mm3 (150-375); Red Blood Count 2.75 M/mm3 (4.2-5.4); Red Cell Distribution Width 17.4 % (11.5-14.5)
[2025-04-26 00:28] LABS: Hemoglobin 6.8 g/dL (12.0-15.0)
[2025-04-26 00:42] LABS: Lactic Acid Reflex 1.5 mmol/L (0.7-2.0)
[2025-04-26 06:01] LABS: Hematocrit 27.4 % (37.0-47.0); Mean Corpuscular HGB Conc 29.2 g/dl (32-36); Mean Corpuscular Hemoglobin 24.9 pg (26-34); Mean Corpuscular Volume 85.4 fl (80-100); Mean Platelet Volume 9.9 fl (7.4-10.4); Platelet Count Result 238 k/mm3 (150-375); Red Blood Count 3.21 M/mm3 (4.2-5.4); Red Cell Distribution Width 16.9 % (11.5-14.5); White Blood Count 5.6 K/mm3 (4.5-10.0)
[2025-04-26 06:18] LABS: Anion Gap 6 mmol/L (4-12); Blood Urea Nitrogen 13 mg/dL (7-17); Calcium 8.6 mg/dL (8.4-10.2); Carbon Dioxide 29 mmol/L (22-30); Chloride 102 mmol/L (98-107); Estimated CRCL calculation 100 ml/min; Estimated Glomerular Filt Rate > 60; Glucose 137 mg/dL (65-110); Potassium 4.1 mmol/L (3.4-5.0); Sodium 137 mmol/L (137-145)
[2025-04-26] MEDS: CYCLOBENZAPRINE HCL 5 MG TABLET PO ×2 (08:41→22:10)
[2025-04-26] MEDS: amLODIPine BESYLATE 5 MG TABLET PO (08:41)
[2025-04-26] MEDS: levETIRAcetam 500 MG TABLET 1500 MG PO ×2 (08:42→22:11)
[2025-04-26] MEDS: SERTRALINE HCL 25 MG TABLET PO (08:42)
[2025-04-26 10:11] LABS: Hematocrit 27.3 % (37.0-47.0); Hemoglobin 8.1 g/dL (12.0-15.0)
[2025-04-26] MEDS: SODIUM CHLORIDE 0.9% IV 1,000 ML 75 ML IV CONT (11:33)
[2025-04-26] MEDS: APIXABAN 2.5 MG TABLET PO ×2 (11:34→22:12)
--- NOTE | 2025-04-26 13:37 | P.PNIM_ITS ---
Progress Note: A&P Assessment and Plan (1) Dysphagia: Qualifiers: Dysphagia type: oropharyngeal phase Qualified Code(s): R13.12 - Dysphagia, oropharyngeal phase Code(s): R13.10 - Dysphagia, unspecified Status: Acute Assessment and Plan: Speech therapy note from 03/27 showing they recommend minced and moist Level 5. Repeat eval showing patient failed her swallow study 04/01. Speech Therapy following and patient able to be advanced back to minced and moist Level 5. patient reversed DNR last week to full code Status post G-tube placement 04/22/2025 on tube feeding (2) Decreased oral intake: Code(s): R63.8 - Other symptoms and signs concerning food and fluid intake Status: Acute Assessment and Plan: Failure to thrive Mirtazapine increased. Avoiding Megace due to DVT. Status post G-tube placement 04/22/2025 continue tube feeding (3) DVT (deep venous thrombosis): Code(s): I82.409 - Acute embolism and thrombosis of unspecified deep veins of unspecified lower extremity Status: Acute Assessment and Plan: Venous Doppler shows thrombus in the left cephalic and basilic veins and left upper extremity. Despite being on DVT prophylaxis now has DVT right subclavian, axillary and basi lic veins likely PICC line associated. Switched to therapeutic Lovenox on 04/05/25. However had to hold due to blood in ostomy. H&H monitored and subsequently Lovenox resumed Picc line removed on 04/11/25. had low Hb yesterday and needed one unit blood transfusion. will monitor H&h decreased eliquis to 2.5 mg (4) Acute respiratory failure: Code(s): J96.00 - Acute respiratory failure, unspecified whether with hypoxia or hypercapnia Status: Acute Assessment and Plan: Acute Respiratory failure secondary to altered mental status and inability to protect airway Patient was intubated and extubated on 03/30; able to be weaned to room air easil y Stable and remains on room air. Avoid sedatives Follow clinically (5) Sepsis: Code(s): A41.9 - Sepsis, unspecified organism Status: Acute Assessment and Plan: Sepsis secondary to bowel perforation, peritonitis UCx negative. BCx negative Treated with Zosyn and has complete a course Sepsis resolved. (6) Perforation bowel: Code(s): K63.1 - Perforation of intestine (nontraumatic) Status: Acute Assessment and Plan: CT A/P 03/28 showing sigmoid diverticulosis with a 6cm cavity consistent with a contained bowel perforation. Gen surgery consulted and she underwent an exploratory laparotomy with sigmoid colon resection with end descending colostomy and an ileal resection with [id number] ileal anastomosis on 03/28/25. Management per General surgery. Antibiotics as above and has completed a course (7) Altered mental status: Code(s): R41.82 - Altered mental status, unspecified Status: Acute Assessment and Plan: Patient presented with altered mental status. Patient also has history of seizure disorder and may have had seizure and be postictal. Other possibilities are sepsis as she had a perforated bowel; rapid response felt secondary to deterioration of mental status from Dilaudid. MRI brain 03/27 showed no acute intracranial process. EEG 03/29 showing nearly continuous focal slow wave activity intermixed with sharp wave transients were seen over left frontal area. This may relate to having previous surgery in this area. Focal slowing is suggestive of underlying structural lesion. Sharp transients are considered nonspecific focal interictal abnormality. Mild background slowing suggestive of generalized encephalopathy. TSH and B12 normal. Ammonia normal Neurology following Repeat EEG 04/14 showing abnormal EEG due to presence of diffuse background slowing suggestive of generalized encephalopathy. No focal or paroxysmal epileptiform abnormality was seen. Patient is awake but confused. She has a hx of SDH and subarachnoid hemorrhage. She may be close to her baseline. (8) C2 cervical fracture: Code(s): S12.100A - Unspecified displaced fracture of second cervical vertebra, initial encounter for closed fracture Status: Inactive Assessment and Plan: Patient had a C2 fracture from a fall in February prior to this admission Patient was evaluated by Neurosurgery. MRI C-spine showed a fracture at the base of the odontoid process possibly extending from the C2 vertebral body, most compatible with acute fracture. There is minimal marrow edema and suggestion of possible early cortication along the fracture margins. Alignment appears unchanged as compared to prior CT scans. Neurosurgery evaluated noted, recommended non operative care with soft cervical collar continue soft cervical collar per neurrosuergy (9) Seizure disorder: Code(s): G40.909 - Epilepsy, unspecified, not intractable, without status epilepticus Status: Acute Assessment and Plan: History of seizure disorder. Continue Keppra. EEG as above. Neurology following. Change to oral Keppra (10) Anemia: Code(s): D64.9 - Anemia, unspecified Status: Acute Assessment and Plan: 03/30 Hemoglobin 6.2 likely secondary to surgery and hemodilution. No objective evidence of bleeding at this time. Stool is brown Hb 7.1 monitor (11) Depression: Code(s): F32.A - Depression, unspecified Status: Acute Assessment and Plan: Patient with ongoing MDD with lack of motivation Zoloft and then mirtazapine added, consider increasing zoloft Continue to monitor mood (12) GI bleed: Code(s): K92.2 - Gastrointestinal hemorrhage, unspecified Status: Acute Assessment and Plan: Brown stool in colostomy General surgery and GI following. Hgb remains stable. Iron panel pending Monitor (13) Hypokalemia: Code(s): E87.6 - Hypokalemia Status: Acute Assessment and Plan: resolved K 4.0 (14) UTI (urinary tract infection): Code(s): N39.0 - Urinary tract infection, site not specified Status: Resolved Assessment and Plan: UA noted. UCx negative. UTI ruled out At risk with chronic Post (15) Goals of care, counseling/discussion: Code(s): Z71.89 - Other specified counseling Status: Acute Assessment and Plan: Patient full code currently Plan DVT prophylaxis - SCD, Eliquis Code Status - Full Code Subjective Date/time seen: 04/26/25 13:37 Interval history: Patient was seen and examined at bedside. She is feeling fine. Denies any [place] [address] pain, shortness of breath, abd pain, nausea vomiting Comfortable at bedside and tolerating tube feeding . Hemoglobin dropped to 6.8 yesterday and reeived one unit blood. will monitor H7H. no bleeding reported. decreased eliquis to 2.5 mg Review of Systems Review of Systems: All systems reviewed & are unremarkable except as noted in HPI and below ROS unobtainable: Yes unobtainable due to endotracheal tube, unobtainable due to medical condition and unobtainable due to mental status Exam Narrative: Gen - NARD Neck - cervical collar in place Chest - clear anteriorly except decreased BS in the right flank; nml RR CV - RRR S1/S2. Tele showing occasional PVCs o/w no acute dysrhythmias Abd - Soft, NT. LLQ ostomy secured with liquid brown stool in bag. Midline incision clean and dry Ext - No pedal edema Neuro - Alert and oriented x1 Psych - pleasant, but minimally participatory Skin - Warm and dry, no wounds or rashes Const: General: comfortable, no acute distress, alert and awake Orientation/consciousness: oriented to person Other: Spoke softly, following commands HENMT: Ears: TM's normal bilaterally Face/Nose/Sinus: Normal nares present Mouth: Yes moist mucous membranes Other: C-collar in place Eyes: General: appearance normal, both eyes and all related structures Sclera: sclerae normal Pupils: Equal, round and reactive pupils present Neck: Neck: supple and no JVD Resp: Effort & Inspection: normal respiratory effort Auscultation: clear to auscultation bilaterally Cardio: Rate: regular rate and tachycardic Rhythm: regular rhythm Other: Telemetry- SR 92. GI: Auscultation: normal bowel sounds Other: Colostomy with brown stool. Urinary Catheter: Urinary Catheter: patent and draining and urine clear Skin: General skin exam: normal color and no rashes or lesions noted Wounds: no wounds Neuro: General: oriented to person, Normal light touch and pain sensation and Unable to assess gait Cranial nerves: Yes facial sensation intact/muscles of mastication intact and Yes Equal, round and reactive pupils present Speech: normal speech and aphasia Gait exam (Neuro): Unable to assess gait Motor exam (neuro): Abnormal motor strength present (RUE weaker then LT ) Sensory Exam: normal sensation Other: Patient not answering questions but would moan and talk to God asking him to help her. Extrem: General: normal to inspection and no pedal edema Other: no edema right upper extremity swelling noted. PICC line in situ. Psych: Mental Status: mental status grossly normal Affect: normal affect Other: Pleasant. Know she is at the hospital and that is 2024. Objective Data Vital Signs Vital Signs: Vital Signs - 24 hr 04/25/25 14:00 04/25/25 16:00 04/25/25 19:30 Temperature 98.2 F 98.2 F Pulse Rate 114 H 114 H 116 H Respiratory Rate 16 16 Blood Pressure 116/71 103/63 Pulse Oximetry 100 100 Oxygen Delivery 04/25/25 20:00 04/25/25 20:00 04/26/25 00:00 Temperature Pulse Rate 118 H 119 H Respiratory Rate Blood Pressure Pulse Oximetry Oxygen Delivery Room Air 04/26/25 02:01 04/26/25 02:15 04/26/25 03:15 Temperature 99.0 F 98.9 F 98.6 F Pulse Rate 116 H 117 H 116 H Respiratory Rate 16 16 16 Blood Pressure 110/69 110/60 115/63 Pulse Oximetry 95 100 100 Oxygen Delivery 04/26/25 04:00 04/26/25 04:15 04/26/25 05:15 Temperature 98.5 F 98.1 F Pulse Rate 113 H 113 H 112 H Respiratory Rate 16 16 Blood Pressure 112/58 L 126/66 Pulse Oximetry 100 100 Oxygen Delivery 04/26/25 05:15 Temperature 98.1 F Pulse Rate 112 H Respiratory Rate 16 Blood Pressure 126/66 Pulse Oximetry 100 Oxygen Delivery Intake/Output Intake/Output: Intake & Output 04/23/25 04/24/25 04/25/25 04/26/25 23:59 23:59 23:59 23:59 Intake Total 1887 1711 1455 3171.5 Output Total 1250 915 715 425 Balance 637 325 532 7627.5 Meds/Results Medications: Active Medications Generic Name Dose Route Start Last Admin Trade Name Freq PRN Reason Stop Dose Admin Acetaminophen 1,000 mg 04/04/25 14:11 04/18/25 09:32 Acetaminophen 500 Mg Tablet PO 1,000 mg Q6H PRN Administration fever or pain 1-3 Albuterol/Ipratropium 3 ml 03/30/25 04:29 03/30/25 05:49 Ipratropium 0.5 Mg/Albuterol Sulfate 2.5 Mg Ampul.Neb 3 Ml INHALATION 3 ml Q6HRT PRN Administration Wheezing Amlodipine Besylate 5 mg 04/10/25 09:00 04/26/25 08:41 Amlodipine Besylate 5 Mg Tablet PO 5 mg DAILY JAYDEN Administration Apixaban 2.5 mg 04/26/25 09:00 04/26/25 11:34 Apixaban 2.5 Mg Tablet PO 2.5 mg Q12HR JAYDEN Administration Cyclobenzaprine HCl 5 mg 04/18/25 16:00 04/26/25 08:41 Cyclobenzaprine Hcl 5 Mg Tablet PO 5 mg Q12HR JAYDEN Administration Sodium Chloride 1,000 mls @ 75 mls/hr 04/25/25 23:45 04/26/25 11:33 Normal Saline Iv IV CONT 75 mls/hr .[id number] JAYDEN Administration Levetiracetam 1,500 mg 04/17/25 09:00 04/26/25 08:42 Levetiracetam 500 Mg Tablet PO 1,500 mg Q12HR JAYDEN Administration Magnesium Oxide 200 mg 04/20/25 21:00 04/25/25 22:10 Magnesium Oxide 200 Mg Tablet PO 200 mg HS JAYDEN Administration Mirtazapine 15 mg 04/14/25 21:00 04/25/25 22:10 Mirtazapine 15 Mg Tablet PO 15 mg HS JAYDEN Administration Miscellaneous Information 1 each 04/25/25 00:01 Please Renew Ondansetron. Per [employer] Procedure, It Will Discontinue If Not Renewed XX 05/25/25 00:00 CLARIFY JAYDEN Naloxone HCl 0.1 mg 03/29/25 00:02 Naloxone Hcl 0.4 Mg/Ml Vial IV PUSH Q2M PRN Opiate Reversal Oxycodone HCl 2.5 mg 04/18/25 14:11 04/25/25 06:27 Oxycodone Hcl (*Crx) 2.5 Mg Tab Ir PO 2.5 mg Q4H PRN Administration Pain Rated 4-6 Oxycodone HCl 5 mg 04/18/25 14:11 04/25/25 18:21 Oxycodone Hcl (*Crx) 5 Mg Tab Ir PO 5 mg Q4H PRN Administration Pain Rated 7-10 Sertraline HCl 25 mg 04/06/25 18:00 04/26/25 08:42 Sertraline Hcl 25 Mg Tablet PO 25 mg QAM JAYDEN Administration Simethicone 80 mg 04/05/25 17:41 04/19/25 09:32 Simethicone 80 Mg Tab.Chew PO 80 mg QID PRN Administration Gas Discomfort Sodium Chloride 20 ml 03/29/25 09:36 Central Line Flush IV PUSH PRN PRN after blood draws Radiology Results: ITS Impressions Modified Barium Swallow 03/27/25 15:26 IMPRESSION: Oropharyngeal dysphagia with intermittent laryngeal penetration with indeterminate/possible minimal aspiration. Please correlate with speech pathologist findings and specific feeding recommendations. Brain MRI 03/27/25 15:28 IMPRESSION: 1. Normal aging brain with minimal periventricular calcific white matter T2 hyperintensity consistent with chronic small vessel ischemic disease. No acute intracranial process. Cervical Spine MRI 03/28/25 08:39 Impression: Fractured the base of the odontoid process possibly extending from the C2 vertebral body detailed above, most compatible with acute fracture. There is minimal marrow edema and suggestion of possible early cortication along the fracture margins. Alignment appears unchanged as compared to prior CT scans. Anterior fusion of C5 and C6. Moderate to advanced degenerative spondylosis otherwise, as detailed above, with multilevel neural foraminal narrowing. Abdomen X-Ray 04/01/25 10:44 IMPRESSION: 1. Nasogastric tube in the stomach. Chest X-Ray 04/04/25 14:06 IMPRESSION: Inadvertent withdrawal of the previously identified PICC line, which now projects over the right subclavian vein, as detailed above. Venous Doppler Study 04/05/25 11:34 IMPRESSION: 1. Bilateral upper extremity venous thrombosis with deep venous thrombosis of the right subclavian and axillary veins. Head CT 04/10/25 10:35 IMPRESSION: 1. No acute intracranial process. 2. Age-related changes including mild to moderate diffuse volume loss and mild scattered white matter attenuation consistent with chronic small vessel ischemic disease. 3. Chronic left frontal craniotomy. Chest/Abdomen/Pelvis CT 04/10/25 10:37 IMPRESSION: 1. Change of recent partial colectomy with left lower quadrant colostomy. No abscess or bowel obstruction. 2. Mild cardiomegaly. No acute cardiopulmonary disease. 3. Nonobstructing nephrolithiasis. Cervical Spine X-Ray 04/18/25 18:30 IMPRESSION: No definite acute osseous abnormality cervical spine. C2 is not very clear. Multilevel degenerative disc disease. Labs Labs: Laboratory Results - last 24 hr 04/25/25 04/26/25 04/26/25 18:54 00:23 00:53 WBC 5.0 RBC 2.75 L Hgb 7.1 L 6.8 L* Hct 24.2 L 23.6 L MCV 85.8 MCH 24.7 L MCHC 28.8 L RDW 17.4 H Plt Count 248 MPV 9.7 Sodium Potassium Chloride Carbon Dioxide Anion Gap BUN Creatinine Estim Creat Clear Calc Estimated GFR Glucose Lactic Acid 1.5 Calcium Blood Type A Positive Antibody Screen Negative Crossmatch See Detail 04/26/25 04/26/25 05:40 10:04 WBC 5.6 RBC 3.21 L Hgb 8.0 L 8.1 L Hct 27.4 L 27.3 L MCV 85.4 MCH 24.9 L MCHC 29.2 L RDW 16.9 H Plt Count 238 MPV 9.9 Sodium 137 Potassium 4.1 Chloride 102 Carbon Dioxide 29 Anion Gap 6 BUN 13 Creatinine 0.38 L Estim Creat Clear Calc 100 Estimated GFR > 60 Glucose 137 H Lactic Acid Calcium 8.6 Blood Type Antibody Screen Crossmatch Quality VTE Prophylaxis VTE prophylaxis: pharmacologic ordered
[2025-04-26 18:10] LABS: Hematocrit 28.1 % (37.0-47.0); Hemoglobin 8.5 g/dL (12.0-15.0)
[2025-04-26] MEDS: MAGNESIUM OXIDE 200 MG TABLET PO (22:11)
[2025-04-26] MEDS: MIRTAZAPINE 15 MG TABLET PO (22:11)
[2025-04-27] VITALS (7 sets, daily range): BP systolic 120–125; BP diastolic 72–83; PULSE 109–115; RESP 16–18; TEMP 36.6–36.8; O2SAT 100
[2025-04-27] MEDS: SODIUM CHLORIDE 0.9% IV 1,000 ML 75 ML IV CONT (00:43)
[2025-04-27 06:16] LABS: Hematocrit 27.8 % (37.0-47.0); Hemoglobin 8.3 g/dL (12.0-15.0); Mean Corpuscular HGB Conc 29.9 g/dl (32-36); Mean Corpuscular Hemoglobin 25.4 pg (26-34); Mean Platelet Volume 9.6 fl (7.4-10.4); Platelet Count Result 275 k/mm3 (150-375); Red Blood Count 3.27 M/mm3 (4.2-5.4); Red Cell Distribution Width 17.2 % (11.5-14.5); White Blood Count 7.5 K/mm3 (4.5-10.0)
[2025-04-27 06:29] LABS: Anion Gap 8 mmol/L (4-12); Blood Urea Nitrogen 10 mg/dL (7-17); Calcium 8.7 mg/dL (8.4-10.2); Carbon Dioxide 27 mmol/L (22-30); Chloride 102 mmol/L (98-107); Estimated CRCL calculation 100 ml/min; Estimated Glomerular Filt Rate > 60; Glucose 125 mg/dL (65-110); Potassium 4.3 mmol/L (3.4-5.0); Sodium 137 mmol/L (137-145)
--- NOTE | 2025-04-27 06:32 | PC.NURSE ---
0620:Spoke w/ Dr. Giles this am. Pt passed large liquid brown stool per rectum/fecal incontinence; Benign in appearance/no blood. Reviewed Brijesh's op note w/ Chan. States likely benign finding. Pt abdomen soft; non-tender; ostomy pink w/ similar appearing (though semi-solid) stool emptied from colostomy. 0635: Spoke w/ pt's dtr, April, who called for update on pt status.
[2025-04-27] MEDS: levETIRAcetam 500 MG TABLET 1500 MG PO ×2 (08:15→20:42)
[2025-04-27] MEDS: SERTRALINE HCL 25 MG TABLET PO (08:15)
[2025-04-27] MEDS: APIXABAN 2.5 MG TABLET PO ×2 (08:15→20:43)
[2025-04-27] MEDS: amLODIPine BESYLATE 5 MG TABLET PO (08:15)
[2025-04-27] MEDS: CYCLOBENZAPRINE HCL 5 MG TABLET PO ×2 (08:20→20:43)
[2025-04-27] MEDS: ACETAMINOPHEN 500 MG TABLET 1000 MG PO (08:38)
--- NOTE | 2025-04-27 11:05 | PM.DS ---
DS: Admitting Diagnosis Discharge Date 04/28/25 Admitting Diagnosis Acute encephalopathy DS: Discharge Diagnosis Discharge Diagnosis (1) Dysphagia: Qualifiers: Dysphagia type: oropharyngeal phase Qualified Code(s): R13.12 - Dysphagia, oropharyngeal phase Code(s): R13.10 - Dysphagia, unspecified Status: Acute Assessment and Plan: Speech therapy note from 03/27 showing they recommend minced and moist Level 5. Repeat eval showing patient failed her swallow study 04/01. Speech Therapy following and patient able to be advanced back to minced and moist Level 5. patient reversed DNR last week to full code Status post G-tube placement 04/22/2025 on tube feeding (2) Decreased oral intake: Code(s): R63.8 - Other symptoms and signs concerning food and fluid intake Status: Acute Assessment and Plan: Failure to thrive Mirtazapine increased. Avoiding Megace due to DVT. Status post G-tube placement 04/22/2025 continue tube feeding (3) DVT (deep venous thrombosis): Code(s): I82.409 - Acute embolism and thrombosis of unspecified deep veins of unspecified lower extremity Status: Acute Assessment and Plan: Venous Doppler shows thrombus in the left cephalic and basilic veins and left upper extremity. Despite being on DVT prophylaxis now has DVT right subclavian, axillary and basilic veins likely PICC line associated. Switched to therapeutic Lovenox on 04/05/25. However had to hold due to blood in ostomy. H&H monitored and subsequently Lovenox resumed Picc line removed on 04/11/25. had low Hb 04/25/25 and needed one unit blood transfusion. H&H stable resume Eliquis (4) Acute respiratory failure: Code(s): J96.00 - Acute respiratory failure, unspecified whether with hypoxia or hypercapnia Status: Acute Assessment and Plan: Acute Respiratory failure secondary to altered mental status and inability to protect airway Patient was intubated and extubated on 03/30; able to be weaned to room air easily Stable and remains on room air. Avoid sedatives Follow clinically (5) Sepsis: Code(s): A41.9 - Sepsis, unspecified organism Status: Acute Assessment and Plan: Sepsis secondary to bowel perforation, peritonitis UCx negative. BCx negative Treated with Zosyn and has complete a course Sepsis resolved. (6) Perforation bowel: Code(s): K63.1 - Perforation of intestine (nontraumatic) Status: Acute Assessment and Plan: CT A/P 03/28 showing sigmoid diverticulosis with a 6cm cavity consistent with a contained bowel perforation. Gen surgery consulted and she underwent an exploratory laparotomy with sigmoid colon resection with end descending colostomy and an ileal resection with [id number] ileal anastomosis on 03/28/25. Management per General surgery. Antibiotics as above and has completed a course (7) Altered mental status: Code(s): R41.82 - Altered mental status, unspecified Status: Acute Assessment and Plan: Patient presented with altered mental status. Patient also has history of seizure disorder and may have had seizure and be postictal. Other possibilities are sepsis as she had a perforated bowel; rapid response felt secondary to deterioration of mental status from Dilaudid. MRI brain 03/27 showed no acute intracranial process. EEG 03/29 showing nearly continuous focal slow wave activity intermixed with sharp wave transients were seen over left frontal area. This may relate to having previous surgery in this area. Focal slowing is suggestive of underlying structural lesion. Sharp transients are considered nonspecific focal interictal abnormality. Mild background slowing suggestive of generalized encephalopathy. TSH and B12 normal. Ammonia normal Neurology following Repeat EEG 04/14 showing abnormal EEG due to presence of diffuse background slowing suggestive of generalized encephalopathy. No focal or paroxysmal epileptiform abnormality was seen. Patient is awake but confused. She has a hx of SDH and subarachnoid hemorrhage. She may be close to her baseline. (8) Seizure disorder: Code(s): G40.909 - Epilepsy, unspecified, not intractable, without status epilepticus Status: Acute Assessment and Plan: History of seizure disorder. Continue Keppra. EEG as above. Neurology following. Change to oral Keppra (9) Anemia: Code(s): D64.9 - Anemia, unspecified Status: Acute Assessment and Plan: 03/30 Hemoglobin 6.2 likely secondary to surgery and hemodilution. No objective evidence of bleeding at this time. Stool is brown Hb 8.3 monitor (10) Depression: Code(s): F32.A - Depression, unspecified Status: Acute Assessment and Plan: Patient with ongoing MDD with lack of motivation Zoloft and then mirtazapine added, consider increasing zoloft Continue to monitor mood (11) GI bleed: Code(s): K92.2 - Gastrointestinal hemorrhage, unspecified Status: Acute Assessment and Plan: Brown stool in colostomy General surgery and GI following. Hgb remains stable. Monitor (12) Hypokalemia: Code(s): E87.6 - Hypokalemia Status: Acute Assessment and Plan: resolved K 4.0 (13) UTI (urinary tract infection): Code(s): N39.0 - Urinary tract infection, site not specified Status: Resolved Assessment and Plan: UA noted. UCx negative. UTI ruled out At risk with chronic Post (14) Goals of care, counseling/discussion: Code(s): Z71.89 - Other specified counseling Status: Acute Assessment and Plan: Patient full code currently Plan DVT prophylaxis - SCD, Eliquis Code Status - Full Code DS: Summary Hospital Course Hospital Course: Patient presented from SNF because of altered mental status and confusion. Consult for possible seizure. MRI was unremarkable. EEG 03/29 showing nearly continuous focal slow wave activity intermixed with sharp wave transients were seen over left frontal area. This may relate to having previous surgery in this area. Focal slowing is suggestive of underlying structural lesion. Sharp transients are considered nonspecific focal interictal abnormality. Mild background slowing suggestive of generalized encephalopathy. Repeat EEG 04/14 showing abnormal EEG due to presence of diffuse background slowing suggestive of generalized encephalopathy. No focal or paroxysmal epileptiform abnormality was seen Neurology team was consulted Keppra increased to [address] A/P 03/28 showing sigmoid diverticulosis with a 6cm cavity consistent with a contained bowel perforation. Gen surgery consulted and she underwent an exploratory laparotomy with sigmoid colon resection with end descending colostomy and an ileal resection with [id number] ileal anastomosis on 03/28/25. For recent C2 fracture; neurosurgery was consulted recommend continue soft cervical collar Patient had anemia and found to have some black stool and colostomy. GI team was consulted. Hemoglobin remained stable Patient had left upper extremity swelling. Ultrasound showed DVT. Started on Lovenox and then switched Eliquis 04/28/25 Patient was seen and examined at bedside. She is feeling fine. Denies any chest pain, shortness of breath, abdominal pain, nausea vomiting. Will discharge patient back to SNF Status at Discharge Overall status at discharge: patient is progressing back to baseline Time Spent with Patient Time attestation: Total time spent providing and/or coordinating discharge services: Time spent: Greater than 30 minutes Exam Narrative: Gen - NARD Neck - cervical collar in place Chest - clear anteriorly except decreased BS in the right flank; nml RR CV - RRR S1/S2. Tele showing occasional PVCs o/w no acute dysrhythmias Abd - Soft, NT. LLQ ostomy secured with liquid brown stool in bag. Midline incision clean and dry Ext - No pedal edema Neuro - Alert and oriented x1 Psych - pleasant, but minimally participatory Skin - Warm and dry, no wounds or rashes Const: General: comfortable, no acute distress, alert and awake Orientation/consciousness: oriented to person Other: Spoke softly, following commands HENMT: Ears: TM's normal bilaterally Face/Nose/Sinus: Normal nares present Mouth: Yes moist mucous membranes Other: C-collar in place Eyes: General: appearance normal, both eyes and all related structures Sclera: sclerae normal Pupils: Equal, round and reactive pupils present Neck: Neck: supple and no JVD Resp: Effort & Inspection: normal respiratory effort Auscultation: clear to auscultation bilaterally Cardio: Rate: regular rate and tachycardic Rhythm: regular rhythm Other: Telemetry- SR 92. GI: Auscultation: normal bowel sounds Other: Colostomy with brown stool. Urinary Catheter: Urinary Catheter: patent and draining and urine clear Skin: General skin exam: normal color and no rashes or lesions noted Wounds: no wounds Neuro: General: oriented to person, Normal light touch and pain sensation and Unable to assess gait Cranial nerves: Yes facial sensation intact/muscles of mastication intact and Yes Equal, round and reactive pupils present Speech: normal speech and aphasia Gait exam (Neuro): Unable to assess gait Motor exam (neuro): Abnormal motor strength present (RUE weaker then LT ) Sensory Exam: normal sensation Other: Patient not answering questions but would moan and talk to God asking him to help her. Extrem: General: normal to inspection and no pedal edema Other: no edema right upper extremity swelling noted. PICC line in situ. Psych: Mental Status: mental status grossly normal Affect: normal affect Other: Pleasant. Know she is at the hospital and that is 2024. DS: Data Data Completed and Pending Completed studies during hospitalization: Pending at discharge 03/28/25 21:35 Surgical [PTH] Routine Surgical [PTH] Routine Labs on day of discharge: Labs from last 24 hours 04/27/25 04/26/25 05:53 17:59 WBC 7.5 RBC 3.27 L Hgb 8.3 L 8.5 L Hct 27.8 L 28.1 L MCV 85.0 MCH 25.4 L MCHC 29.9 L RDW 17.2 H Plt Count 275 MPV 9.6 Sodium 137 Potassium 4.3 Chloride 102 Carbon Dioxide 27 Anion Gap 8 BUN 10 Creatinine 0.38 L Estim Creat Clear Calc 100 Estimated GFR > 60 Glucose 125 H Calcium 8.7 Discharge Plan Discharge Attending physician on discharge: Cristobal Tariq Consulting providers: Yanet Do; Tanner Dale; Kathy Mccarty; Amaury Perera; Rafi Pascal; Tramaine Osman Discharging Clinician: Cristobal Tariq Anticipated Discharge Date/Time: 04/28/25 11:21 Patient Disposition: SNF Activity: as tolerated Diet: as tolerated Wound Care Instructions: other - see discharge instructions Discharge Instructions: Kyrie may be removed at nursing facility on or after 04/11/2025. Call Dr. Coley's office for any concerns with wound or ostomy. Ostomy changes to be performed twice a week or when appliance leaks. Patient is wearing a One Piece Cut to fit Convex Colostomy appliance. follow with PCP in one week Follow repeat blood test in 2-3 days. continue soft neck collar Patient Instructions: Apixaban (By mouth), Heart Failure (GEN) Patient Language: Kittitian Stand Alone Forms: General Discharge Information Follow-up/Referrals: Antonio Coley DO [Physician] - Call for Appointment Discharge Medications: New Eliquis 5 mg tablet 5 mg PO Q12HR Qty: 60 0RF simethicone 80 mg Tablet,Chewable 80 mg PO QID PRN (Reason: Gas Discomfort) Qty: 30 0RF Continued acetaminophen 500 mg capsule 1,000 mg PO Q6H PRN (Reason: fever or pain) oxycodone 5 mg tablet 5 mg PO Q6H PRN (Reason: pain) primidone 250 mg tablet 250 mg PO QID aspirin 81 mg tablet,chewable 81 mg PO DAILY amlodipine 10 mg tablet 10 mg PO DAILY potassium chloride 10 mEq capsule, extended release 10 meq PO DAILY docusate sodium 100 mg capsule 100 mg PO BID polyethylene glycol 3350 [ClearLax] 17 gram/dose powder 17 g PO DAILY topiramate [Topamax] 25 mg tablet 25 mg PO HS Changed levetiracetam [Keppra] 250 mg tablet 1,500 mg PO BIDWM Qty: 60 0RF Discontinued prasugrel HCl [Effient] 10 mg tablet 10 mg PO DAILY Other Ambulatory Orders: Complete Blood Count no Diff (Routine) Timeframe: 2 Days Location: Determined by Patient Ordered By: Cristobal Tariq Date of admission: 03/26/25 14:08 Primary Care Provider: Julio Manriquez Admitting Provider: Tessie Soriano Attending physician on admission: Cristobal Tariq Condition: Stable Quality VTE Prophylaxis VTE prophylaxis: pharmacologic ordered
--- NOTE | 2025-04-27 13:46 | PC.NURSE ---
Attempted to call report to [place] Jaleesa De La Cruz RN. While giving report, Aimee states that they don;t have pharmacy services until tomorrow which would result in patient having missed medications, specifically Eliquis. I spoke with Kim HANNA & Dr Tariq & relayed this info. Decision was made to hold discharge until Monday when these issues can be better addressed.
--- NOTE | 2025-04-27 14:02 | PM.IMPN ---
Progress Note: A&P Assessment and Plan (1) Dysphagia: Qualifiers: Dysphagia type: oropharyngeal phase Qualified Code(s): R13.12 - Dysphagia, oropharyngeal phase Code(s): R13.10 - Dysphagia, unspecified Status: Acute Assessment and Plan: Speech therapy note from 03/27 showing they recommend minced and moist Level 5. Repeat eval showing patient failed her swallow study 04/01. Speech Therapy following and patient able to be advanced back to minced and moist Level 5. Status post G-tube placement 04/22/2025 on tube feeding (2) Decreased oral intake: Code(s): R63.8 - Other symptoms and signs concerning food and fluid intake Status: Acute Assessment and Plan: Failure to thrive Mirtazapine increased. Avoiding Megace due to DVT. Status post G-tube placement 04/22/2025 continue tube feeding (3) DVT (deep venous thrombosis): Code(s): I82.409 - Acute embolism and thrombosis of unspecified deep veins of unspecified lower extremity Status: Acute Assessment and Plan: Venous Doppler shows thrombus in the left cephalic and basilic veins and left upper extremity. Despite being on DVT prophylaxis now has DVT right subclavian, axillary and basilic veins likely PICC line associated. Switched to therapeutic Lovenox on 04/05/25. However had to hold due to blood in ostomy. H&H monitored and subsequently Lovenox resumed Picc line removed on 04/11/25. had low Hb 12/26/24 and needed one unit blood transfusion. will monitor H&h.. Asthma stable. No bleeding reported. Continue with Eliquis (4) Acute respiratory failure: Code(s): J96.00 - Acute respiratory failure, unspecified whether with hypoxia or hypercapnia Status: Acute Assessment and Plan: Acute Respiratory failure secondary to altered mental status and inability to protect airway Patient was intubated and extubated on 03/30; able to be weaned to room air easily Stable and remains on room air. Avoid sedatives Follow clinically (5) Sepsis: Code(s): A41.9 - Sepsis, unspecified organism Status: Acute Assessment and Plan: Sepsis secondary to bowel perforation, peritonitis UCx negative. BCx negative Treated with Zosyn and has complete a course Sepsis resolved. (6) Perforation bowel: Code(s): K63.1 - Perforation of intestine (nontraumatic) Status: Acute Assessment and Plan: CT A/P 03/28 showing sigmoid diverticulosis with a 6cm cavity consistent with a contained bowel perforation. Gen surgery consulted and she underwent an exploratory laparotomy with sigmoid colon resection with end descending colostomy and an ileal resection with [id number] ileal anastomosis on 03/28/25. Management per General surgery. Antibiotics as above and has completed a course (7) Altered mental status: Code(s): R41.82 - Altered mental status, unspecified Status: Acute Assessment and Plan: Patient presented with altered mental status. Patient also has history of seizure disorder and may have had seizure and be postictal. Other possibilities are sepsis as she had a perforated bowel; rapid response felt secondary to deterioration of mental status from Dilaudid. MRI brain 03/27 showed no acute intracranial process. EEG 03/29 showing nearly continuous focal slow wave activity intermixed with sharp wave transients were seen over left frontal area. This may relate to having previous surgery in this area. Focal slowing is suggestive of underlying structural lesion. Sharp transients are considered nonspecific focal interictal abnormality. Mild background slowing suggestive of generalized encephalopathy. TSH and B12 normal. Ammonia normal Neurology following Repeat EEG 04/14 showing abnormal EEG due to presence of diffuse background slowing suggestive of generalized encephalopathy. No focal or paroxysmal epileptiform abnormality was seen. Patient is awake but confused. She has a hx of SDH and subarachnoid hemorrhage. She may be close to her baseline. (8) C2 cervical fracture: Code(s): S12.100A - Unspecified displaced fracture of second cervical vertebra, initial encounter for closed fracture Status: Inactive Assessment and Plan: Patient had a C2 fracture from a fall in February prior to this admission Patient was evaluated by Neurosurgery. MRI C-spine showed a fracture at the base of the odontoid process possibly extending from the C2 vertebral body, most compatible with acute fracture. There is minimal marrow edema and suggestion of possible early cortication along the fracture margins. Alignment appears unchanged as compared to prior CT scans. Neurosurgery evaluated noted, recommended non operative care with soft cervical collar continue soft cervical collar per neurrosuergy (9) Seizure disorder: Code(s): G40.909 - Epilepsy, unspecified, not intractable, without status epilepticus Status: Acute Assessment and Plan: History of seizure disorder. Continue Keppra. EEG as above. Neurology following. Change to oral Keppra (10) Anemia: Code(s): D64.9 - Anemia, unspecified Status: Acute Assessment and Plan: 03/30 Hemoglobin 6.2 likely secondary to surgery and hemodilution. No objective evidence of bleeding at this time. Stool is brown Hb stable monitor (11) Depression: Code(s): F32.A - Depression, unspecified Status: Acute Assessment and Plan: Patient with ongoing MDD with lack of motivation Zoloft,remeron Continue to monitor mood (12) GI bleed: Code(s): K92.2 - Gastrointestinal hemorrhage, unspecified Status: Acute Assessment and Plan: Brown stool in colostomy General surgery and GI following. Hgb remains stable. Monitor (13) Hypokalemia: Code(s): E87.6 - Hypokalemia Status: Acute Assessment and Plan: resolved (14) UTI (urinary tract infection): Code(s): N39.0 - Urinary tract infection, site not specified Status: Resolved Assessment and Plan: UA noted. UCx negative. UTI ruled out At risk with chronic Post (15) Goals of care, counseling/discussion: Code(s): Z71.89 - Other specified counseling Status: Acute Assessment and Plan: Patient full code currently Plan DVT prophylaxis - SCD, Eliquis Code Status - Full Code Subjective Date/time seen: 04/27/25 14:02 Interval history: 04/26/25 Patient was seen and examined at bedside. She is feeling fine. Denies any chest pain, shortness of breath, abd pain, nausea vomiting Comfortable at bedside and tolerating tube feeding . Hemoglobin dropped to 6.8 yesterday and receiived one unit blood. will monitor H7H. no bleeding reported. decreased eliquis to 2.5 mg 04/27/25 Patient was seen and examined at bedside. She is feeling fine. Denies any chest pain, shortness of breath, abdominal pain, nausea vomiting. Hemoglobin is stable. No bleeding reported. Plan was to discharge patient but [facility] pharmacy is closed and cannot accept patient today. Review of Systems Review of Systems: All systems reviewed & are unremarkable except as noted in HPI and below ROS unobtainable: Yes unobtainable due to endotracheal tube, unobtainable due to medical condition and unobtainable due to mental status Exam Narrative: Gen - NARD Neck - cervical collar in place Chest - clear anteriorly except decreased BS in the right flank; nml RR CV - RRR S1/S2. Tele showing occasional PVCs o/w no acute dysrhythmias Abd - Soft, NT. LLQ ostomy secured with liquid brown stool in bag. Midline incision clean and dry Ext - No pedal edema Neuro - Alert and oriented x1 Psych - pleasant, but minimally participatory Skin - Warm and dry, no wounds or rashes Const: General: comfortable, no acute distress, alert and awake Orientation/consciousness: oriented to person Other: Spoke softly, following commands HENMT: Ears: TM's normal bilaterally Face/Nose/Sinus: Normal nares present Mouth: Yes moist mucous membranes Other: C-collar in place Eyes: General: appearance normal, both eyes and all related structures Sclera: sclerae normal Pupils: Equal, round and reactive pupils present Neck: Neck: supple and no JVD Resp: Effort & Inspection: normal respiratory effort Auscultation: clear to auscultation bilaterally Cardio: Rate: regular rate and tachycardic Rhythm: regular rhythm Other: Telemetry- SR 92. GI: Auscultation: normal bowel sounds Other: Colostomy with brown stool. Urinary Catheter: Urinary Catheter: patent and draining and urine clear Skin: General skin exam: normal color and no rashes or lesions noted Wounds: no wounds Neuro: General: oriented to person, Normal light touch and pain sensation and Unable to assess gait Cranial nerves: Yes facial sensation intact/muscles of mastication intact and Yes Equal, round and reactive pupils present Speech: normal speech and aphasia Gait exam (Neuro): Unable to assess gait Motor exam (neuro): Abnormal motor strength present (RUE weaker then LT ) Sensory Exam: normal sensation Other: Patient not answering questions but would moan and talk to God asking him to help her. Extrem: General: normal to inspection and no pedal edema Other: no edema right upper extremity swelling noted. PICC line in situ. Psych: Mental Status: mental status grossly normal Affect: normal affect Other: Pleasant. Know she is at the hospital and that is 2024. Objective Data Vital Signs Vital Signs: Vital Signs - 24 hr 04/26/25 16:00 04/26/25 20:00 04/26/25 20:00 Temperature Pulse Rate 111 H 116 H 116 H Respiratory Rate 10 L Blood Pressure Pulse Oximetry 100 Oxygen Delivery Room Air Fraction of Inspired Oxygen 04/26/25 21:03 04/27/25 00:00 04/27/25 04:00 Temperature 98.1 F Pulse Rate 116 H 115 H 113 H Respiratory Rate 100 H Blood Pressure 146/77 H Pulse Oximetry 100 Oxygen Delivery Fraction of Inspired Oxygen 04/27/25 06:00 04/27/25 08:00 04/27/25 08:00 Temperature 97.8 F Pulse Rate 112 H 114 H Respiratory Rate 16 Blood Pressure 120/83 Pulse Oximetry 100 Oxygen Delivery Room Air Fraction of Inspired Oxygen 04/27/25 12:00 04/27/25 13:56 Temperature 98.2 F Pulse Rate 109 H 110 H Respiratory Rate 18 Blood Pressure 125/76 Pulse Oximetry 100 Oxygen Delivery Fraction of Inspired Oxygen Intake/Output Intake/Output: Intake & Output 04/24/25 04/25/25 04/26/25 04/27/25 23:59 23:59 23:59 23:59 Intake Total 1711 1455 3291.5 987.5 Output Total 778 595 2674 500 Balance 130 254 7107.5 487.5 Meds/Results Medications: Active Medications Generic Name Dose Route Start Last Admin Trade Name Freq PRN Reason Stop Dose Admin Acetaminophen 1,000 mg 04/04/25 14:11 04/27/25 08:38 Acetaminophen 500 Mg Tablet PO 1,000 mg Q6H PRN Administration fever or pain 1-3 Albuterol/Ipratropium 3 ml 03/30/25 04:29 03/30/25 05:49 Ipratropium 0.5 Mg/Albuterol Sulfate 2.5 Mg Ampul.Neb 3 Ml INHALATION 3 ml Q6HRT PRN Administration Wheezing Amlodipine Besylate 5 mg 04/10/25 09:00 04/27/25 08:15 Amlodipine Besylate 5 Mg Tablet PO 5 mg DAILY JAYDEN Administration Apixaban 2.5 mg 04/26/25 09:00 04/27/25 08:15 Apixaban 2.5 Mg Tablet PO 2.5 mg Q12HR JAYDEN Administration Cyclobenzaprine HCl 5 mg 04/18/25 16:00 04/27/25 08:20 Cyclobenzaprine Hcl 5 Mg Tablet PO 5 mg Q12HR JAYDEN Administration Sodium Chloride 1,000 mls @ 75 mls/hr 04/25/25 23:45 04/27/25 00:43 Normal Saline Iv IV CONT 75 mls/hr .[id number] JAYDEN Administration Levetiracetam 1,500 mg 04/17/25 09:00 04/27/25 08:15 Levetiracetam 500 Mg Tablet PO 1,500 mg Q12HR JAYDEN Administration Magnesium Oxide 200 mg 04/20/25 21:00 04/26/25 22:11 Magnesium Oxide 200 Mg Tablet PO 200 mg HS JAYDEN Administration Mirtazapine 15 mg 04/14/25 21:00 04/26/25 22:11 Mirtazapine 15 Mg Tablet PO 15 mg HS JAYDEN Administration Miscellaneous Information 1 each 04/25/25 00:01 Please Renew Ondansetron. Per [employer] Procedure, It Will Discontinue If Not Renewed XX 05/25/25 00:00 CLARIFY JAYDEN Naloxone HCl 0.1 mg 03/29/25 00:02 Naloxone Hcl 0.4 Mg/Ml Vial IV PUSH Q2M PRN Opiate Reversal Oxycodone HCl 2.5 mg 04/18/25 14:11 04/25/25 06:27 Oxycodone Hcl (*Crx) 2.5 Mg Tab Ir PO 2.5 mg Q4H PRN Administration Pain Rated 4-6 Oxycodone HCl 5 mg 04/18/25 14:11 04/25/25 18:21 Oxycodone Hcl (*Crx) 5 Mg Tab Ir PO 5 mg Q4H PRN Administration Pain Rated 7-10 Sertraline HCl 25 mg 04/06/25 18:00 04/27/25 08:15 Sertraline Hcl 25 Mg Tablet PO 25 mg QAM JAYDEN Administration Simethicone 80 mg 04/05/25 17:41 04/19/25 09:32 Simethicone 80 Mg Tab.Chew PO 80 mg QID PRN Administration Gas Discomfort Radiology Results: ITS Impressions Modified Barium Swallow 03/27/25 15:26 IMPRESSION: Oropharyngeal dysphagia with intermittent laryngeal penetration with indeterminate/possible minimal aspiration. Please correlate with speech pathologist findings and specific feeding recommendations. Brain MRI 03/27/25 15:28 IMPRESSION: 1. Normal aging brain with minimal periventricular calcific white matter T2 hyperintensity consistent with chronic small vessel ischemic disease. No acute intracranial process. Cervical Spine MRI 03/28/25 08:39 Impression: Fractured the base of the odontoid process possibly extending from the C2 vertebral body detailed above, most compatible with acute fracture. There is minimal marrow edema and suggestion of possible early cortication along the fracture margins. Alignment appears unchanged as compared to prior CT scans. Anterior fusion of C5 and C6. Moderate to advanced degenerative spondylosis otherwise, as detailed above, with multilevel neural foraminal narrowing. Abdomen X-Ray 04/01/25 10:44 IMPRESSION: 1. Nasogastric tube in the stomach. Chest X-Ray 04/04/25 14:06 IMPRESSION: Inadvertent withdrawal of the previously identified PICC line, which now projects over the right subclavian vein, as detailed above. Venous Doppler Study 04/05/25 11:34 IMPRESSION: 1. Bilateral upper extremity venous thrombosis with deep venous thrombosis of the right subclavian and axillary veins. Head CT 04/10/25 10:35 IMPRESSION: 1. No acute intracranial process. 2. Age-related changes including mild to moderate diffuse volume loss and mild scattered white matter attenuation consistent with chronic small vessel ischemic disease. 3. Chronic left frontal craniotomy. Chest/Abdomen/Pelvis CT 04/10/25 10:37 IMPRESSION: 1. Change of recent partial colectomy with left lower quadrant colostomy. No abscess or bowel obstruction. 2. Mild cardiomegaly. No acute cardiopulmonary disease. 3. Nonobstructing nephrolithiasis. Cervical Spine X-Ray 04/18/25 18:30 IMPRESSION: No definite acute osseous abnormality cervical spine. C2 is not very clear. Multilevel degenerative disc disease. Labs Labs: Laboratory Results - last 24 hr 04/26/25 04/27/25 17:59 05:53 WBC 7.5 RBC 3.27 L Hgb 8.5 L 8.3 L Hct 28.1 L 27.8 L MCV 85.0 MCH 25.4 L MCHC 29.9 L RDW 17.2 H Plt Count 275 MPV 9.6 Sodium 137 Potassium 4.3 Chloride 102 Carbon Dioxide 27 Anion Gap 8 BUN 10 Creatinine 0.38 L Estim Creat Clear Calc 100 Estimated GFR > 60 Glucose 125 H Calcium 8.7 Quality VTE Prophylaxis VTE prophylaxis: pharmacologic ordered
[2025-04-27] MEDS: MIRTAZAPINE 15 MG TABLET PO (20:43)
[2025-04-27] MEDS: MAGNESIUM OXIDE 200 MG TABLET PO (20:43)
[2025-04-28 05:17] LABS: Hematocrit 28.9 % (37.0-47.0); Hemoglobin 8.5 g/dL (12.0-15.0); Mean Corpuscular HGB Conc 29.4 g/dl (32-36); Mean Corpuscular Hemoglobin 25.3 pg (26-34); Mean Platelet Volume 10.1 fl (7.4-10.4); Platelet Count Result 318 k/mm3 (150-375); Red Blood Count 3.36 M/mm3 (4.2-5.4); Red Cell Distribution Width 17.2 % (11.5-14.5); White Blood Count 5.6 K/mm3 (4.5-10.0)
[2025-04-28 05:40] LABS: Anion Gap 8 mmol/L (4-12); Blood Urea Nitrogen 10 mg/dL (7-17); Calcium 8.9 mg/dL (8.4-10.2); Carbon Dioxide 26 mmol/L (22-30); Chloride 106 mmol/L (98-107); Estimated CRCL calculation 105 ml/min; Estimated Glomerular Filt Rate > 60; Glucose 114 mg/dL (65-110); Potassium 4.2 mmol/L (3.4-5.0); Sodium 140 mmol/L (137-145)
[2025-04-28 05:59] VITALS: BP 125/77; PULSE 112; RESP 18; TEMP 36.6; O2SAT 100
[2025-04-28] MEDS: SERTRALINE HCL 25 MG TABLET PO (09:03)
[2025-04-28] MEDS: CYCLOBENZAPRINE HCL 5 MG TABLET PO (09:03)
[2025-04-28] MEDS: amLODIPine BESYLATE 5 MG TABLET PO (09:03)
[2025-04-28] MEDS: APIXABAN 2.5 MG TABLET PO (09:04)
[2025-04-28] MEDS: levETIRAcetam 500 MG TABLET 1500 MG PO (09:04)
[2025-04-28] MEDS: oxyCODONE HCL (*CRX) 2.5 MG TAB IR PO (14:41)
== END 2025-04-28 14:55 | DRG 329 ==
LOC: ANHIMU 03-27 15:22 → ANHICU 03-29 03:01 → ANHIMU 03-31 16:18 → ANH2MED 04-01 14:19
PROVIDERS: Internal Medicine; Internal Medicine Gastroenterology; Nurse Practitioner Acute Care; Nurse Practitioner Family; Surgery; Admitting Provider Family Medicine; PCP Family Medicine; Visit Provider Internal Medicine
PROC: 0DBB0ZZ Excision of Ileum, Open Approach (ICD-10-PCS; CPT 49000; principal; 2025-03-28 20:00)
PROC: 0DH63UZ Insertion of Feeding Device into Stomach, Percutaneous Approach (ICD-10-PCS; CPT 43246; principal; 2025-04-22 15:30)
DX: K57.20 Diverticulitis of large intestine with perforation and abscess without bleeding (principal); A41.9 Sepsis, unspecified organism; J96.00 Acute respiratory failure, unspecified whether with hypoxia or hypercapnia; J36 Peritonsillar abscess; K63.2 Fistula of intestine; S12.110A Anterior displaced Type II dens fracture, initial encounter for closed fracture; R47.01 Aphasia; N39.0 Urinary tract infection, site not specified; T82.524A Displacement of infusion catheter, initial encounter; I82.622 Acute embolism and thrombosis of deep veins of left upper extremity; I82.890 Acute embolism and thrombosis of other specified veins; T82.868A Thrombosis due to vascular prosthetic devices, implants and grafts, initial encounter; K92.2 Gastrointestinal hemorrhage, unspecified; I82.B11 Acute embolism and thrombosis of right subclavian vein; I82.A11 Acute embolism and thrombosis of right axillary vein; G93.49 Other encephalopathy; R29.810 Facial weakness; R40.4 Transient alteration of awareness; R13.12 Dysphagia, oropharyngeal phase; I12.9 Hypertensive chronic kidney disease with stage 1 through stage 4 chronic kidney disease, or unspecified chronic kidney disease; N18.9 Chronic kidney disease, unspecified; G40.909 Epilepsy, unspecified, not intractable, without status epilepticus; R00.0 Tachycardia, unspecified; D64.9 Anemia, unspecified; F32.A Depression, unspecified; I25.10 Atherosclerotic heart disease of native coronary artery without angina pectoris; Z87.891 Personal history of nicotine dependence; R63.0 Anorexia; E87.6 Hypokalemia; R62.7 Adult failure to thrive; Z68.25 Body mass index [BMI] 25.0-25.9, adult
CPT/HCPCS: 31500; 36415; 36430; 36569; 36600; 43246; 62328; 70450; 70553; 71045; 71250; 72040; 72141; 74176; 80048; 80053; 80061; 81001; 82140; 82375; 82607; 82728; 82805; 82948; 83050; 83540; 83550; 83605; 83735; 84100; 84145; 84439; 84443; 84480; 85014; 85018; 85025; 85027; 85610; 85730; 86788; 86850; 86900; 86901; 86923; 87040; 87086; 87637; 87641; 88307; 92507; 92523; 92526; 92610; 92611; 93306; 93970; 93971; 94002; 94003; 94640; 95816; 96375; 97110; 97162; 97163; 97166; 97167; 97530; 97535; A9270; A9579; C1751; J0295; J0690; J0696; J1171; J1580; J1650; J1741; J1756; J1953; J2003; J2250; J2470; J2543; J2704; J3010; J3430; J3480; J7030; J7040; J7050; J7120; P9016; P9017

== ENCOUNTER 2025-04-29 23:10 | Emergency (ER) | payer MEDICARE, SELFPAY ==
--- NOTE | ~2025-04-29 | CT_ITS ---
Clinical Indication: Tachycardia CT Scan of the Chest with Contrast: Technique: Contiguous sections were acquired throughout the chest after intravenous administration of 100 cc of Omnipaque 350. Dose reduction technique was used on this scan by utilizing automated expos ure control and iterative reconstruction technique. The dose-length product (DLP) was 389.44 mGy-cm. COMPARISON: 04/10/2025 Findings: There is no evidence of any significant mediastinal, hilar or axillary lymphadenopathy. There is no f illing defect in the pulmonary arterial tree to suggest pulmonary embolus. There is no evidence of ao rtic dissection or aneurysm. There is no evidence of pleural or pericardial effusion. The lungs are clear. No pulmonary nodules or infiltrates are noted. Images through the upper abdomen reveal no abnormalities. There is minimal acute compression deformit y superior endplate of L1. Probable minimal chronic compression deformities at the superior endplate regions of T2 and T4. Impression: No evidence of pulmonary embolus, aortic dissection, or aortic aneurysm. Clear lungs. Probable minimal acute compression fracture deformity at the superior endplate of L1. Probable minima l chronic compression deformities of T2 and T4. Reviewed, dictated and finalized at [facility]. Impression: No evidence of pulmonary embolus, aortic dissection, or aortic aneurysm. Clear lungs. Probable minimal acute compression fracture deformity at the superior endplate of L1. Probable minimal chronic compression deformities of T2 and T4.
--- NOTE | ~2025-04-29 | XR_ITS ---
CHEST RADIOGRAPH CLINICAL HISTORY: Tachycardia . COMPARISON: 04/04/2025 TECHNIQUE: Single portable view of the chest. FINDINGS Sternal wires and mediastinal clips are identified, the wires are midline and intact. Clip projects over the left atrial appendage. Left anterior descending stent is noted. The remainder of the cardiomediastinal silhouette is enlarged, unchanged and otherwise unremarkable. Increased interstitial markings are identified bilaterally, findings suggesting mild pulmonary vascul ar congestion. The remainder of the lungs are clear. IMPRESSION: Mild pulmonary vascular congestion, without focal infiltrate or effusion. Reviewed, dictated and finalized at location A.
[2025-04-29 23:14] VITALS: BP 123/84; PULSE 120; RESP 19; TEMP 36.1; O2SAT 100
[2025-04-29 23:16] VITALS: BP 118/81; PULSE 119; RESP 20; O2SAT 100
--- NOTE | 2025-04-29 23:20 | ECG_ITS ---
Test Date: 2025-04-29 23:32:07 Measurements Intervals [place] Rate: 116 P: 77 ID: [id number] QRS: 24 QRSD: 96 T: 71 QT: 340 QTc: 474 Interpretive Statements SINUS TACHYCARDIA VOLTAGE CRITERIA FOR LVH BASELINE WANDER- I, AVL ABNORMAL ECG Compared to ECG 03/25/2025 13:10:44 HEART RATE HAS DECREASED Electronically Signed On 04-30-2025 06:14:12 CDT by Piotr English D.O.
--- NOTE | 2025-04-29 23:23 | ED_ITS ---
HPI - Arrhythmia/Palpitations General Chief Complaint: Arrhythmia/Palpitations Stated Complaint: elevated heart rate Time Seen by Provider: 04/29/25 23:19 Source: patient and EMS Mode of arrival: EMS Limitations: physical limitation History of Present Illness HPI narrative: This is a 75-year-old female, with history intracranial hemorrhage, seizure disorder, hypertension, bowel perforation, and dysphagia status post gastrostomy tube placement who is brought in by EMS from her halfway for tachycardia. EMS reports they were called for tachycardia. The patient's heart rate was reported in the 120s. Vital signs were otherwise reported as normal. The patient had no specific complaints. The patient denies pain, difficulty breathing, vomiting, diarrhea or bleeding of any kind. Related Data Home Medications ?Medication ?Instructions ?Recorded ?Confirmed ?Last Taken ?Type amlodipine 10 mg tablet 10 mg PO DAILY 03/10/25 03/26/25 Unknown History aspirin 81 mg chewable tablet 81 mg PO DAILY 03/10/25 03/26/25 Unknown History docusate sodium 100 mg capsule 100 mg PO BID 03/10/25 03/26/25 Unknown History oxycodone 5 mg tablet 5 mg PO Q6H PRN pain 03/10/25 03/26/25 03/10/25 History polyethylene glycol 3350 17 17 g PO DAILY 03/10/25 03/26/25 Unknown History gram/dose oral powder (ClearLax) potassium chloride 10 mEq 10 meq PO DAILY 03/10/25 03/26/25 Unknown History capsule,extended release primidone 250 mg tablet 250 mg PO QID 03/10/25 03/26/25 Unknown History topiramate 25 mg tablet (Topamax) 25 mg PO HS 03/10/25 03/26/25 Unknown History acetaminophen 500 mg capsule 1,000 mg PO Q6H PRN fever or pain 03/25/25 03/26/25 Unknown History Allergies Allergy/AdvReac Type Severity Reaction Status Date / Time morphine Allergy Unknown Unknown Verified 03/25/25 12:49 Review of Systems 2 Review of Systems: All systems reviewed & are unremarkable except as noted in HPI and below PMFSH Past Medical History Medical History Seizure disorder Perforation bowel DVT (deep venous thrombosis) Anorexia C2 cervical fracture CAD (coronary artery disease) Coarse tremors Subdural hemorrhage Subarachnoid hemorrhage Migraine Hypertension Family History Family History Mother Hypertension Spinal cord cancer Sibling Colon cancer Hypertension Other Breast cancer Social History Social History Smoking packs per day: 0.5 Smoking cigarettes per day: 10.0 Years smoked: 20 Smoking pack-years: 10.00 Smoking status: Former smoker Tobacco type: cigarettes Second hand tobacco smoke exposure: No Alcohol intake: never Substance use: never Spiritual care concerns: No Exam 2 Narrative: GENERAL: Well-developed, well-nourished, and in no acute distress. HEAD: Normocephalic, atraumatic. EYES: PERRLA and EOMI. ENT: Nares clear, no rhinorrhea or epistaxis. Mucous membranes moist. Oropharynx without tonsillar hypertrophy exudate or other lesions. NECK: Supple. CHEST: Clear to auscultation. No respiratory distress. No wheezes rales or rhonchi HEART: Tachycardic with regular rhythm. No murmur heard. Normal peripheral pulses. ABDOMEN: Soft, nontender, nondistended, normal active bowel sounds. a gastrostomy tube is in place without surrounding erythema. There is no noted bleeding or purulent drainage EXTREMITIES: Normal range of motion. No edema. SKIN: Warm, dry, no rash. NEURO: Alert and oriented x2 ( self and location). Moves all 4 extremities. Bilateral warehouse receiver strength 4+/5, bilateral plantar and dorsiflexion 4+/5 PSYCH: Normal mood and affect. Course Course Emergency Course: 23:37 - Chart review shows the patient had a prolonged admission at [facility] for altered mental status, complicated by dysphagia, bowel perforation and hypoxic respiratory failure. It appears she was discharged from the facility 2 days ago. Vital signs review shows the patient was tachycardic to the mid 110s in the preceding 8 days prior to discharge. 00:25 - CBC demonstrates baseline anemia of hemoglobin of 8.4 with a normal white blood cell and platelet count. Chemistries demonstrate mild hyponatremia with sodium of 136 mild hypocalcemia with calcium of 8.3 and AST/ ALT elevation of 58/57 respectively with alk-phos of 193. Chemistries otherwise unremarkable, including a normal total bilirubin and potassium. Compared to previous labs, there are no significant changes. Chest x-ray demonstrates mild pulmonary vascular congestion without other acute cardiopulmonary findings or changes compared to previous images. ABG demonstrates respiratory alkalosis with pH of 7.5 and pCO2 of 34. PO2 elevated at 156 on room air. Bicarb within normal limits. 00:45 - Urinalysis demonstrates pH greater than 9 with 3+ leukocyte esterase, greater than 75 white blood cells, 3+ bacteria RBCs of 3-5. Compared to urinalysis done on 07 April 2025, the pH is elevated, and white blood cell count is high air. Previous urine cultures have been negative. I suspect urinary tract infection. Will give 1g of Rocephin. CT angiogram of the chest by my review is not concerning for PE. Radiology interpretation pending. The patient's heart rate is improved to 106. Blood pressure 149/90. 04:21 - STAT Rad Interpretation CT angiogram was not concerning for pulmonary embolism. Cardiomegaly is noted with left ventricular enlargement. Mild esophageal thickening is seen. There are age indeterminate T2-T4 and L1 compression fractures. Will discharge with antibiotics per G-tube for UTI and recommendation for primary care follow-up. I discussed the findings and recommendations with the patient. Discussed return and emergency precautions including signs/symptoms of ACS and respiratory distress. The patient voiced understanding and agreement with the plan. All questions answered to her satisfaction. Vital Signs Vital signs: Vital Signs Temperature 96.9 F L 04/29/25 23:14 Pulse Rate 120 H 04/29/25 23:14 Respiratory Rate 19 04/29/25 23:14 Blood Pressure 123/84 04/29/25 23:14 Pulse Oximetry 100 04/29/25 23:14 Oxygen Delivery Room Air 04/29/25 23:14 Temperature 96.9 F L 04/29/25 23:14 Pulse Rate 110 H 04/30/25 04:02 Respiratory Rate 17 04/30/25 04:02 Blood Pressure 124/68 04/30/25 04:02 Pulse Oximetry 95 04/30/25 04:02 Oxygen Delivery Room Air 04/30/25 04:02 Procedures Other Procedure Procedure 1: Other Procedure: Ultrasound-guided IV Verbal consent was obtained from the patient prior to catheter placement. An 18 gauge ultrasound-guided IV was placed by me in the left AC. MDM - Arrhythmia/Palpitations MDM Narrative Medical decision making narrative: plan: Labs, EKG, imaging, IV fluids reassess Differential Diagnosis Differential diagnosis: Likely palpitations, sinus tachycardia, supraventricular tachycardia and other ( PE, metabolic abnormality, dehydration, arrhythmia, pneumonia, UTI other) Lab Data 04/29/25 23:36 04/29/25 23:36 Labs: Lab Results 04/29/25 04/30/25 Range/Units 23:36 00:20 WBC 5.6 (4.8-10.8) K/mm3 RBC 3.30 L (4.20-5.40) M/mm3 Hgb 8.4 L (11.7-13.8) g/dL Hct 28.0 L (35.0-42.0) % MCV 84.8 (78.0-102.0) fL MCH 25.5 L (27.0-31.0) pg MCHC 30.0 L (32-36) g/dL RDW 17.5 H (11.6-14.4) % Plt Count 369 (150-420) K/mm3 MPV 8.9 L (9.2-11.8) fl Immature Gran % (Auto) 0.5 H (0.0-0.0) % Neut % (Auto) 64.0 (50.0-70.0) % Lymph % (Auto) 20.0 (18.0-42.0) % Morrill % (Auto) 12.3 H (2.0-11.0) % Eos % (Auto) 2.5 (1.0-6.0) % Baso % (Auto) 0.7 (0.0-1.0) % Lymph # (Auto) 1.12 (1.10-4.50) K/mm3 Morrill # (Auto) 0.69 (0.10-0.90) K/mm3 Eos # (Auto) 0.14 (0.02-0.50) K/mm3 Baso # (Auto) 0.04 (0.00-0.10) K/mm3 Abs Immat Gran (auto) 0.03 H (0.00-0.00) K/mm3 Absolute Neuts (auto) 3.57 (1.70-7.20) K/mm3 Absolute Nucleated RBC 0.00 (0.00-0.00) K/mm3 Nucleated RBC % 0.0 (0-0.0) % PT 10.7 (9.50-12.1) Seconds INR 1.0 Sodium 136 L (137-145) mmol/L Potassium 4.2 (3.4-5.0) mmol/L Chloride 103 (98-107) mmol/L Carbon Dioxide 27 (22-30) mmol/L Anion Gap 6 (4-12) mmol/L BUN 14 (7-17) mg/dL Creatinine 0.31 L (0.7-1.0) mg/dL Estim Creat Clear Calc 119 ml/min Estimated GFR > 60 (59 - ) Glucose 133 H (65-110) mg/dL Calculated Osmolality 284 L (285-295) mOsm/kg Lactic Acid 1.1 (0.4-2.0) mmol/L Calcium 8.3 L (8.4-10.2) mg/dL Magnesium 1.8 (1.6-2.3) mg/dL Total Bilirubin 0.3 (0.2-1.3) mg/dL AST 58 H (14-36) U/L ALT 57 H (6-35) U/L Alkaline Phosphatase 193 H (38-126) U/L Total Protein 7.3 (6.3-8.2) g/dL Albumin 3.0 L (3.5-5.1) g/dL Urine Color Light yellow (Yellow) Urine Appearance Cloudy A (Clear) Urine pH >=9.0 H (5.0-8.0) Ur Specific [place] 1.010 (1.010-1.020) Urine Protein 2+ H (Negative) Urine Glucose (UA) Negative (Negative) Urine Ketones Negative (Negative) Ur Blood (Man) Trace-intact H (Negative) Urine Nitrate Negative (Negative) Urine Bilirubin Negative (Negative) Urine Urobilinogen 0.2 (0.2-1.0) mg/dL Leukocyte Esterase Rfl 3+ H (Negative) REJI/UL Urine RBC 3-5 H (0-2) /hpf Urine WBC >75 H (0-3) /hpf Ur Squamous Epith Cells Rare (Few) /hpf Urine Bacteria 3+ H (None) /hpf ABG Data ABG results: 04/29/25 23:42 Puncture Site Left brachial ABG pH 7.51 H ABG pCO2 34.2 L ABG pO2 156.7 H ABG HCO3 26.6 ABG O2 Saturation 98.6 H ABG Base Excess 3.6 H Oxyhemoglobin 97.5 O2 Delivery Device Room air O2 Liters/Min 0.0 ECG Data EKG #1: Attestation: I personally reviewed and interpreted this ECG as follows: ECG completion date: 04/29/25 ECG completion time: 23:32 Interpretation: sinus tachycardia, rate 116, normal axis, LVH no ST segment elevations or T- wave inversions concerning for ischemia, normal intervals with QTC of 409. No significant change compared to EKG done on March 25, 2025 Discharge Plan Discharge Clinical Impression: Acute UTI, Sinus tachycardia Patient Disposition: CT Senior Living/Asst Living Condition: Stable Instructions: Antibiotic Form, Urinary Tract Infection in Women (ED) Additional Instructions: Mrs. Shea was seen in the emergency department. Her labs are stable compared to her recent discharge from [facility]. A urinalysis showed changes consistent with UTI. Her vital signs aside from the fast heart rate are normal. Imaging was not concerning for pneumonia or PE. Her EKG is unchanged compared to one obtained during hospitalization. Her tachycardia was noted during her admission. I recommend antibiotics for UTI and follow up with her primary care doctor. If she develops fevers with severe abdominal pain, persistent vomiting, bleeding, or if you have other emergent concerns for life, limb or eyesight, return to the emergency department. Patient Language: French Prescriptions: New cephalexin 500 mg tablet 500 mg feeding tube Q12H 7 Days Qty: 14 0RF No Action acetaminophen 500 mg capsule 1,000 mg PO Q6H PRN (Reason: fever or pain) oxycodone 5 mg tablet 5 mg PO Q6H PRN (Reason: pain) primidone 250 mg tablet 250 mg PO QID aspirin 81 mg tablet,chewable 81 mg PO DAILY amlodipine 10 mg tablet 10 mg PO DAILY potassium chloride 10 mEq capsule, extended release 10 meq PO DAILY docusate sodium 100 mg capsule 100 mg PO BID polyethylene glycol 3350 [ClearLax] 17 gram/dose powder 17 g PO DAILY topiramate [Topamax] 25 mg tablet 25 mg PO HS Eliquis 5 mg tablet 5 mg PO Q12HR Qty: 60 0RF simethicone 80 mg Tablet,Chewable 80 mg PO QID PRN (Reason: Gas Discomfort) Qty: 30 0RF levetiracetam [Keppra] 250 mg tablet 1,500 mg PO BIDWM Qty: 60 0RF Follow-up/Referrals: Julio Manriquez MD [Primary Care Provider] - 1 Week Stand Alone Forms: [facility] Discharge Time of Disposition: 04:22
--- NOTE | 2025-04-29 23:23 | PC.NURSE ---
EKG IN PROGRESS BY CELSO TECH
[2025-04-29 23:31] VITALS: BP 125/81; PULSE 118; RESP 20; O2SAT 100
[2025-04-29 23:39] LABS: Basophils Absolute Auto 0.04 K/mm3 (0.00-0.10); Basophils Percent Auto 0.7 % (0.0-1.0); Eosinophils Absolute Auto 0.14 K/mm3 (0.02-0.50); Eosinophils Percent Auto 2.5 % (1.0-6.0); Hemoglobin 8.4 g/dL (11.7-13.8); Immature Granulocyte Absolute 0.03 K/mm3 (0.00-0.00); Immature Granulocyte Percent A 0.5 % (0.0-0.0); Lymphocytes Absolute Auto 1.12 K/mm3 (1.10-4.50); Mean Corpuscular Hemoglobin 25.5 pg (27.0-31.0); Mean Corpuscular Volume 84.8 fL (78.0-102.0); Mean Platelet Volume 8.9 fl (9.2-11.8); Monocytes Absolute Auto 0.69 K/mm3 (0.10-0.90); Monocytes Percent Auto 12.3 % (2.0-11.0); Neutrophils Absolute Auto 3.57 K/mm3 (1.70-7.20); Platelet Count Result 369 K/mm3 (150-420); Red Cell Distribution Width 17.5 % (11.6-14.4); White Blood Count 5.6 K/mm3 (4.8-10.8)
--- NOTE | 2025-04-29 23:49 | PC.NURSE ---
ATTEMPTED IV LINE PLACEMENT X 1. UNSUCCESSFUL. HUANG ESPINOSA AT THE BEDSIDE TO TRY AND PLACE IV LINE. CURRENTLY HAVE ALFORD CLAMPED OFF TO BE ABLE TO COLLECT URINE SAMPLE.
[2025-04-29 23:52] LABS: Alanine Aminotransferase 57 U/L (6-35); Alkaline Phosphatase 193 U/L (38-126); Anion Gap 6 mmol/L (4-12); Aspartate Amino Transferase 58 U/L (14-36); Bilirubin,Total 0.3 mg/dL (0.2-1.3); Blood Urea Nitrogen 14 mg/dL (7-17); Calcium 8.3 mg/dL (8.4-10.2); Carbon Dioxide 27 mmol/L (22-30); Chloride 103 mmol/L (98-107); Estimated CRCL calculation 119 ml/min; Estimated Glomerular Filt Rate > 60; Glucose 133 mg/dL (65-110); Osmolality Calculated 284 mOsm/kg (285-295); Potassium 4.2 mmol/L (3.4-5.0); Prothrombin Time 10.7 Seconds (9.50-12.1); Sodium 136 mmol/L (137-145); Total Protein 7.3 g/dL (6.3-8.2)
[2025-04-29 23:53] LABS: Lactic Acid Reflex 1.1 mmol/L (0.4-2.0)
[2025-04-29 23:56] LABS: Base Excess ABG 3.6 mmol/L (0-2); HCO3 ABG 26.6 mmol/L (23-29); Oxygen Saturation ABG 98.6 % (95-97); Oxyhemoglobin 97.5 % (94-100); PCO2 ABG 34.2 mmHg (35-45); PO2 ABG 156.7 mmHg (75-85); pH ABG 7.51 (7.35-7.45)
[2025-04-29 23:57] LABS: Device ROOM AIR; Modified Allen's Test Pass; Site Drawn LEFT BRACHIAL
[2025-04-29 23:58] LABS: Magnesium 1.8 mg/dL (1.6-2.3)
[2025-04-30] VITALS (13 sets, daily range): BP systolic 124–152; BP diastolic 68–96; PULSE 105–115; RESP 12–26; O2SAT 94–100
--- NOTE | 2025-04-30 00:25 | PC.NURSE ---
PATIENT TRANSPORTED DOWN TO CT VIA STRETCHER. URINE OBTAINED FROM PORT ON ALFORD AND TAKEN DOWN TO LAB. HUB CLEANED WITH CHLORPREP BEFORE ASPIRATING FOR URINE.
[2025-04-30 00:31] LABS: Add Urine Microscopic? YES; Appearance Urine Cloudy (Clear); Bilirubin Urine Negative (Negative); Blood Urine Trace-intact (Negative); Color Urine Light Yellow (Yellow); Glucose Urine UA Negative (Negative); Ketones Urine Negative (Negative); Leukocyte Esterase Ur 3+ LEU/UL (Negative); Nitrate Urine Negative (Negative); Protein Urine 2+ (Negative); Urobilinogen Urine 0.2 mg/dL (0.2-1.0); pH Urine >=9.0 (5.0-8.0)
[2025-04-30 00:39] LABS: Bacteria Urine 3+ /hpf; Squamous Epithelial Cell Urine Rare /hpf (Few); WBC Urine >75 /hpf (0-3)
[2025-04-30] MEDS: SODIUM CHLORIDE 0.9% IV 1,000 ML 999 ML IV CONT (00:40)
--- NOTE | 2025-04-30 01:17 | PC.NURSE ---
PATIENT RESTING QUIETLY ON STRETCHER. IV CONTINUES TO INFUSE TO LEFT AC. SITE WITHOUT REDNESS OR IRRITATION. PATIENT DENIES ANY NEEDS AT THIS TIME. CALL LIGHT IN REACH
--- NOTE | 2025-04-30 01:49 | PC.NURSE ---
CURRENTLY WAITING ON CAT SCAN REPORT. PATIENT IS RESTING ON STRETCHER. DENIES ANY NEEDS AT THIS TIME. ASKED PATIENT IF SHE WANTED TO TURN TO HER SIDE. DOES NOT WANT TO TURN AT THIS TIME. BILATERAL LOWER EXTREMITIES ELEVATED ON PILLOWS TO PROTECT HEELS.
--- NOTE | 2025-04-30 03:21 | PC.NURSE ---
PATIENT IS RESTING QUIETLY ON STRETCHER. RESP EVEN AND UNLABORED. APPEARS TO BE SLEEPING. CALL LIGHT IN REACH.
--- NOTE | 2025-04-30 04:25 | PC.NURSE ---
CALL WAS PLACED TO [facility]. NO ANSWER AT THIS TIME. WILL TRY AGAIN FOR DISCHARGE REPORT
--- NOTE | 2025-04-30 04:47 | PC.NURSE ---
SECOND CALL PLACED TO [facility]. NO ANSWER. WILL TRY AGAIN
--- NOTE | 2025-04-30 05:12 | PC.NURSE ---
PATIENT IS CURRENTLY RESTING QUIETLY ON STRETCHER. ATTEMPTING TO CONTACT NURSING FOR DISCHARGE. PATIENT HAS CALL LIGHT IN REACH.
--- NOTE | 2025-04-30 05:24 | PC.NURSE ---
PHONE REPORT WAS GIVEN TO NURSE AGUIRRE AT [facility]. SHE WILL ARRANGE TRANSPORTATION FOR PATIENT TO RETURN TO FACILITY
--- NOTE | 2025-04-30 05:32 | PC.NURSE ---
THIS RN WALKED INTO TO ROOM TO CHECK ON PATIENT. PATIENT HAD PULLED OUT IV LINE THAT WAS IN HER LEFT AC. NO BLEEDING NOTED AT SITE. INFORMED PATIENT THAT SHE WOULD BE GOING BACK TO HALF-WAY.
--- NOTE | 2025-05-02 13:34 | PC.NURSE ---
PRELIMINARY URINE CULTURE REPORT; GRAM NEGATIVE BACILLI ISOLATED; PATIENT DISCHARGED ON CEPHALEXIN. WAIT FOR FINAL CULTURE AND SENSITIVITY PER DR. PEREZ
--- NOTE | 2025-05-03 13:50 | PC.NURSE ---
final urine culture report reviewed. > 100,000 pseudomonas aeruginosa isolated. report shows sensitivity to cefepime. erp, dr. Goodman reviews pt plan of care and agrees with current prescription choice. no change in plan of care
== END 2025-04-30 06:01 ==
PROVIDERS: Emergency Provider Preventive Medicine Aerospace Medicine; PCP Family Medicine
DX: N39.0 Urinary tract infection, site not specified (principal); R00.0 Tachycardia, unspecified; I10 Essential (primary) hypertension; I25.10 Atherosclerotic heart disease of native coronary artery without angina pectoris; Z87.891 Personal history of nicotine dependence
CPT/HCPCS: 36415; 36600; 71045; 71275; 80053; 81001; 82805; 83605; 83735; 85025; 85610; 87086; 93005; 96361; 96365; 99284; J0696; J7030; Q9967

== ENCOUNTER 2025-05-12 14:54 | Outpatient (NON) | payer OTHER, MEDICARE, SELFPAY ==
[2025-05-12 16:12] LABS: Add Urine Microscopic? YES; Appearance Urine Cloudy (Clear); Glucose Urine UA Negative (Negative); Leukocyte Esterase Ur 3+ (Negative); Nitrate Urine Positive (Negative); Specific Grav Ur 1.010 (1.010-1.020)
== END 2025-05-12 14:55 | disposition home or self-care (01) ==
LOC: CHSLAB 14:57
DX: N31.9 Neuromuscular dysfunction of bladder, unspecified (principal); N18.2 Chronic kidney disease, stage 2 (mild); N39.0 Urinary tract infection, site not specified
CPT/HCPCS: 81001; 87077; 87086; 87088; 87186

== ENCOUNTER 2025-05-24 10:35 | Emergency (ER) | payer MEDICARE, MEDICAID, SELFPAY ==
--- NOTE | ~2025-05-24 | CT_ITS ---
EXAMINATION: CT abdomen pelvis w con DATE: 05/24/2025 13:59 INDICATION: Abdominal pain TECHNIQUE: Computed tomography (CT) of the abdomen and pelvis was performed with 100 cc Omnipaque 350 intravenous contrast. The dose-length product was 791.55 mGy-cm. Automated exposure control and iter ative reconstruction technique were employed. COMPARISON: None. FINDINGS: Lung bases unremarkable. Heart size normal. There is a left lower quadrant colostomy. Fatty infiltration of the liver. There is a gastric tube. There are nonobstructing left renal stones. The spleen, pancreas, adrenal glands are unremarkable. There is bilateral renal cortical thinning. Gallbl adder is present. Nonobstructive bowel gas pattern. There are changes of partial colectomy. Colonic d iverticula without evidence for definite diverticulitis. No evidence for aneurysm or dissection. No a bscess identified. IMPRESSION: 1. No acute abdominal abnormality. 2: Left nephrolithiasis. 3: Partial distal colectomy with colostomy in the left lower abdomen. Gastric tube also present. Reviewed, dictated and finalized at location A. IMPRESSION: 1. No acute abdominal abnormality. 2: Left nephrolithiasis. 3: Partial distal colectomy with colostomy in the left lower abdomen. Gastric t ube also present.
[2025-05-24 10:45] VITALS: BP 117/58; PULSE 88; RESP 20; TEMP 36.4; O2SAT 100
[2025-05-24 11:36] VITALS: BP 126/75; PULSE 83; RESP 16; O2SAT 100
[2025-05-24 12:28] LABS: Hematocrit 33.2 % (37.0-47.0); Hemoglobin 10.0 g/dL (12.0-15.0); Immature Granulocyte Percent A 0.4 % (0-0.5); Lymphocytes Absolute Auto 1.53 K/mm3 (0.9-3.2); Mean Corpuscular HGB Conc 30.1 g/dl (32-36); Mean Corpuscular Hemoglobin 26.5 pg (26-34); Mean Corpuscular Volume 88.1 fl (80-100); Nucleated Red Blood Cells Absolute Auto 0.000 K/mm3 (0.0-0.012); Nucleated Red Blood Cells Perc 0.0 % (0.0-0.2); Platelet Count Result 236 k/mm3 (150-375); Red Blood Count 3.77 M/mm3 (4.2-5.4); White Blood Count 4.7 K/mm3 (4.5-10.0)
[2025-05-24 12:41] LABS: INR 1.3; Prothrombin Time 15.8 Seconds (11.1-14.7)
[2025-05-24 12:42] LABS: Partial Thromboplastin Time 32.6 Seconds (22.3-36.8)
[2025-05-24 12:49] LABS: Anisocytosis 1+; Hypochromasia 1+
[2025-05-24 12:50] LABS: Alanine Aminotransferase 34 U/L (6-35); Albumin Level 3.3 g/dL (3.5-5.1); Alkaline Phosphatase 211 U/L (38-126); Anion Gap 7 mmol/L (4-12); Aspartate Amino Transferase 36 U/L (14-36); Bilirubin,Total 0.1 mg/dL (0.2-1.3); Blood Urea Nitrogen 9 mg/dL (7-17); Burr Cells 1+; Calcium 9.1 mg/dL (8.4-10.2); Carbon Dioxide 24 mmol/L (22-30); Chloride 109 mmol/L (98-107); Estimated CRCL calculation 75 ml/min; Estimated Glomerular Filt Rate > 60; Glucose 91 mg/dL (65-110); Lipase 237 U/L (23-300); Ovalocytes 1+; Potassium 4.0 mmol/L (3.4-5.0); Schistocytes None Seen; Sodium 140 mmol/L (137-145); Target Cells 1+; Total Protein 7.7 g/dL (6.3-8.2)
[2025-05-24 13:32] VITALS: BP 120/70; PULSE 73; RESP 17; O2SAT 98
[2025-05-24 13:39] LABS: Add Urine Microscopic? YES; Appearance Urine Turbid (Clear); Glucose Urine UA Negative (Negative); Leukocyte Esterase Ur 3+ LEU/UL (Negative); Need Manual Microscopic Reviewed; Nitrate Urine Negative (Negative); Specific Grav Ur 1.018 (1.001-1.035)
--- NOTE | 2025-05-24 13:44 | ED.GENADULT ---
HPI - General Adult General Chief complaint: Abdominal Pain Stated complaint: abdominal pain. G tube Time Seen by Provider: 05/24/25 11:35 History of Present Illness HPI narrative: 75-year-old female presenting to the emergency department for evaluation for abdominal pain. Patient states the pain started overnight. Patient has had a G-tube for the last 3 months. Patient is uncomfortable appearing and does have abdominal tenderness to palpation. Patient does have a colostomy and a feeding tube. Related Data Home Medications ?Medication ?Instructions ?Recorded ?Confirmed ?Last Taken ?Type amlodipine 10 mg tablet 10 mg PO DAILY 03/10/25 03/26/25 Unknown History aspirin 81 mg chewable tablet 81 mg PO DAILY 03/10/25 03/26/25 Unknown History docusate sodium 100 mg capsule 100 mg PO BID 03/10/25 03/26/25 Unknown History oxycodone 5 mg tablet 5 mg PO Q6H PRN pain 03/10/25 03/26/25 03/10/25 History polyethylene glycol 3350 17 17 g PO DAILY 03/10/25 03/26/25 Unknown History gram/dose oral powder (ClearLax) potassium chloride 10 mEq 10 meq PO DAILY 03/10/25 03/26/25 Unknown History capsule,extended release primidone 250 mg tablet 250 mg PO QID 03/10/25 03/26/25 Unknown History topiramate 25 mg tablet (Topamax) 25 mg PO HS 03/10/25 03/26/25 Unknown History acetaminophen 500 mg capsule 1,000 mg PO Q6H PRN fever or pain 03/25/25 03/26/25 Unknown History Allergies Allergy/AdvReac Type Severity Reaction Status Date / Time morphine Allergy Unknown Unknown Verified 03/25/25 12:49 Review of Systems Review of Systems: All systems reviewed & are unremarkable except as noted in HPI and below PMFSH Past Medical History Medical History Seizure disorder Perforation bowel DVT (deep venous thrombosis) Anorexia C2 cervical fracture CAD (coronary artery disease) Coarse tremors Subdural hemorrhage Subarachnoid hemorrhage Migraine Hypertension Family History Family History Mother Hypertension Spinal cord cancer Sibling Colon cancer Hypertension Other Breast cancer Social History Social History Smoking packs per day: 0.5 Smoking cigarettes per day: 10.0 Years smoked: 20 Smoking pack-years: 10.00 Smoking status: Former smoker Tobacco type: cigarettes Second hand tobacco smoke exposure: No Alcohol intake: never Substance use: never Spiritual care concerns: No Exam Narrative: APPEARANCE: Well appearing, no pain, no distress, well-nourished. HEAD: normocephalic, atraumatic. EYES: PERRLA/EOMI, conjunctivae clear. NOSE: Normal no drainage EARS:TMS clear with good light reflex. THROAT: Pharynx clear, no exudate. NECK: Supple. No adenopathy, no masses. RESPIRATORY: Airway patent, respirations nonlabored. Clear to auscultation bilaterally, no rales, rhonchi, wheezing. CARDIOVASCULAR: Regular rate and rhythm without murmurs rubs or gallops. ABDOMINAL: Lower abdominal tenderness to palpation MUSCULOSKELETAL: Moves all extremities. Strength/ROM intact, No edema, No calf tenderness. NEURO: Alert. Cranial nerves II through XII intact. Good gait. Good coordination SKIN: No skin irritation or abnormalities noted with the G-tube or ostomy site Course Vital Signs Vital signs: Vital Signs Temperature 97.6 F 05/24/25 10:45 Pulse Rate 88 05/24/25 10:45 Respiratory Rate 20 05/24/25 10:45 Blood Pressure 117/58 L 05/24/25 10:45 Pulse Oximetry 100 05/24/25 10:45 Oxygen Delivery Room Air 05/24/25 10:45 Temperature 97.6 F 05/24/25 10:45 Pulse Rate 80 05/24/25 17:38 Respiratory Rate 18 05/24/25 17:38 Blood Pressure 119/79 05/24/25 17:38 Pulse Oximetry 100 05/24/25 17:38 Oxygen Delivery Room Air 05/24/25 11:36 Medical Decision Making [facility] Narrative Medical decision making narrative: 75-year-old female presents emergency department for evaluation of abdominal pain. Patient is currently afebrile with no leukocytosis hemoglobin of 10.0. This is similar to her baseline. INR is 1.3. Patient has no acute abnormalities on her CMP UA was significant for a urinary tract infection. It was leukocyte esterase positive high read high white blood cells and +3 bacteria. Urine culture was ordered. Previous urine cultures showed no specific back to resistance. Patient was started on IV Rocephin the emergency department will be switched to Keflex for home. CT scan showed no acute abnormality. On re-evaluation patient does appear to be resting comfortably and is in no distress. Patient and family are updated on the results of the workup. All questions were addressed. Encouraged close follow-up with GI for her gtube, and surgery for her colostomy tube. Patient family are comfortable the plan for discharge and close follow-up. Differential Diagnosis Differential Diagnosis: UTI, G-tube issue, colostomy issue, small-bowel obstruction, colitis, diverticulitis Vital Signs Vital Signs: Vital Signs Temperature 97.6 F 05/24/25 10:45 Pulse Rate 88 05/24/25 10:45 Respiratory Rate 20 05/24/25 10:45 Blood Pressure 117/58 L 05/24/25 10:45 Pulse Oximetry 100 05/24/25 10:45 Oxygen Delivery Room Air 05/24/25 10:45 Temperature 97.6 F 05/24/25 10:45 Pulse Rate 80 05/24/25 17:38 Respiratory Rate 18 05/24/25 17:38 Blood Pressure 119/79 05/24/25 17:38 Pulse Oximetry 100 05/24/25 17:38 Oxygen Delivery Room Air 05/24/25 11:36 Lab Data Lab results reviewed: Yes I reviewed the patient's lab results. 05/24/25 12:20 05/24/25 12:20 Labs: Lab Results 05/24/25 05/24/25 Range/Units 12:20 13:07 WBC 4.7 (4.5-10.0) K/mm3 RBC 3.77 L (4.2-5.4) M/mm3 Hgb 10.0 L (12.0-15.0) g/dL Hct 33.2 L (37.0-47.0) % MCV 88.1 (80-100) fl MCH 26.5 (26-34) pg MCHC 30.1 L (32-36) g/dl RDW 22.3 H (11.5-14.5) % Plt Count 236 (150-375) k/mm3 MPV 9.7 (7.4-10.4) fl Immature Gran % (Auto) 0.4 (0-0.5) % Neut % (Auto) 48.8 (45.5-73.1) % Lymph % (Auto) 32.8 (18.3-44.2) % [place] % (Auto) 11.6 H (2.6-8.5) % Eos % (Auto) 5.8 H (0-4.4) % Baso % (Auto) 0.6 (0.2-1.2) % Lymph # (Auto) 1.53 (0.9-3.2) K/mm3 [place] # (Auto) 0.5 (0.1-0.6) K/mm3 Eos # (Auto) 0.3 (0-0.3) K/mm3 Baso # (Auto) 0.0 (0.0-0.1) K/mm3 Abs Immat Gran (auto) 0.02 (0.00-0.031) K/mm3 Absolute Neuts (auto) 2.3 (1.3-6.7) K/mm3 Absolute Nucleated RBC 0.000 (0.0-0.012) K/mm3 Band Neutrophils % Not Reportable Nucleated RBC % 0.0 (0.0-0.2) % Platelet Estimate Adequate (Adequate) Hypochromasia 1+ Anisocytosis 1+ Target Cells 1+ Ovalocytes 1+ [place] Cells 1+ Schistocytes None seen PT 15.8 H (11.1-14.7) Seconds INR 1.3 APTT 32.6 (22.3-36.8) Seconds Sodium 140 (137-145) mmol/L Potassium 4.0 (3.4-5.0) mmol/L Chloride 109 H (98-107) mmol/L Carbon Dioxide 24 (22-30) mmol/L Anion Gap 7 (4-12) mmol/L BUN 9 D (7-17) mg/dL Creatinine 0.55 L (0.7-1.0) mg/dL Estim Creat Clear Calc 75 ml/min Estimated GFR > 60 (59 - ) Glucose 91 (65-110) mg/dL Lactic Acid 1.4 (0.7-2.0) mmol/L Calcium 9.1 (8.4-10.2) mg/dL Total Bilirubin 0.1 L (0.2-1.3) mg/dL AST 36 (14-36) U/L ALT 34 (6-35) U/L Alkaline Phosphatase 211 H (38-126) U/L Total Protein 7.7 (6.3-8.2) g/dL Albumin 3.3 L (3.5-5.1) g/dL Lipase 237 (23-300) U/L Urine Color Yellow (Yellow) Urine Appearance Turbid H (Clear) Urine pH 5.0 (5.0-9.0) Ur Specific [place] 1.018 (1.001-1.035) Urine Protein Trace (Negative) mg/dL Urine Glucose (UA) Negative (Negative) mg/dL Urine Ketones Negative (Negative) mg/dL Ur Blood (Man) 3+ H (Negative) Urine Nitrate Negative (Negative) Urine Bilirubin Negative (Negative) Urine Urobilinogen 0.2 (<2.0) mg/dL Add Ur Microanalysis Reviewed Leukocyte Esterase Rfl 3+ H (Negative) REJI/UL Urine RBC >100 H (0-2) /hpf Urine WBC >100 H (0-3) /hpf Ur Squamous Epith Cells Moderate (Few) /hpf Urine Bacteria 3+ H /hpf Urine Casts 3-5 Imaging Data Radiologist's impression: Impressions Abdomen/Pelvis CT 05/24/25 14:05 IMPRESSION: 1. No acute abdominal abnormality. 2: Left nephrolithiasis. 3: Partial distal colectomy with colostomy in the left lower abdomen. Gastric tube also present. Discharge Plan Discharge Clinical Impression: Abdominal pain, Acute UTI Patient Disposition: Home Condition: Stable Instructions: Antibiotic Form Additional Instructions: Your urine was significant for a urinary tract infection and you are being started on antibiotics. You were treated with a dose of IV antibiotics while in the emergency department. Have close follow-up with Dr. Coley to inquire about reversing your colostomy. Have close follow-up with GI, Dr Ruiz, about removing the G-tube. Have close follow-up with your primary care physician. If you have any worsening symptoms then please call or return to the emergency department. Patient Language: Greek Prescriptions: New cephalexin 500 mg capsule 500 mg PO Q6H 7 Days Qty: 28 0RF Discontinued cephalexin 500 mg tablet 500 mg feeding tube Q12H 7 Days Qty: 14 0RF No Action acetaminophen 500 mg capsule 1,000 mg PO Q6H PRN (Reason: fever or pain) oxycodone 5 mg tablet 5 mg PO Q6H PRN (Reason: pain) primidone 250 mg tablet 250 mg PO QID aspirin 81 mg tablet,chewable 81 mg PO DAILY amlodipine 10 mg tablet 10 mg PO DAILY potassium chloride 10 mEq capsule, extended release 10 meq PO DAILY docusate sodium 100 mg capsule 100 mg PO BID polyethylene glycol 3350 [ClearLax] 17 gram/dose powder 17 g PO DAILY topiramate [Topamax] 25 mg tablet 25 mg PO HS Eliquis 5 mg tablet 5 mg PO Q12HR Qty: 60 0RF simethicone 80 mg Tablet,Chewable 80 mg PO QID PRN (Reason: Gas Discomfort) Qty: 30 0RF levetiracetam [Keppra] 250 mg tablet 1,500 mg PO BIDWM Qty: 60 0RF Follow-up/Referrals: Dionisio Nuñez MD [Physician] - UNKNOWN,DOCTOR [Primary Care Provider] - Antonio Coley DO [Physician] -
[2025-05-24] MEDS: HYDROmorphone HCL INJ (*CRX) 2 MG/ML VIAL 0.5 MG IV PUSH (14:01)
[2025-05-24] MEDS: cefTRIAXone 1 GM in SODIUM CHLORIDE 0.9% IV 50 ML 100 ML IVPB (15:13)
[2025-05-24 17:38] VITALS: BP 119/79; PULSE 80; RESP 18; O2SAT 100
== END 2025-05-24 17:42 | disposition home or self-care (01) ==
PROVIDERS: Emergency Provider Emergency Medicine
DX: N39.0 Urinary tract infection, site not specified (principal); R10.9 Unspecified abdominal pain; G40.909 Epilepsy, unspecified, not intractable, without status epilepticus; I25.10 Atherosclerotic heart disease of native coronary artery without angina pectoris; I10 Essential (primary) hypertension; Z93.3 Colostomy status; Z93.1 Gastrostomy status; Z86.718 Personal history of other venous thrombosis and embolism; Z87.891 Personal history of nicotine dependence; Z90.49 Acquired absence of other specified parts of digestive tract; Z79.82 Long term (current) use of aspirin; Z79.899 Other long term (current) drug therapy; Z79.01 Long term (current) use of anticoagulants; N20.0 Calculus of kidney
CPT/HCPCS: 36415; 74177; 80053; 81001; 83605; 83690; 85025; 85610; 85730; 96365; 96375; 99284; J0696; J1171; Q9967

== ENCOUNTER 2025-06-15 10:31 | Emergency (ER) | payer MEDICARE, MEDICAID, SELFPAY ==
--- NOTE | ~2025-06-15 | CT_ITS ---
EXAMINATION: CT cervical spine wo con DATE: 06/15/2025 11:11 INDICATION: Trauma TECHNIQUE: Computed tomography (CT) of the cervical spine was performed without intravenous contrast. Automated exposure control and iterative reconstruction technique were employed. The dose-length pro duct was 681.00 mGy-cm. COMPARISON: Cervical spine CT dated 03/25/2025 FINDINGS: 10 degrees cervicothoracic levocurvature. Mild atlantoaxial osteoarthritis. Type 3 odontoid fracture with unchanged 4 mm anterior displacement of the odontoid fragment. The fracture appears to remain u nunited with increasing sclerosis along the thin lucent fracture plane raising some concern for progr ession towards none. Unchanged mild superior endplate compression fractures at T2, T3 and T4. Cervica l vertebral body heights are normal. No acute fracture. Chronic instrumented anterior spinal fusion a t C5-C6. Moderate disc height loss at C6-C7 and mild disc height loss at C2-C3 through C4-C5. Disc bu lge at C3-C4 and posterior disc osteophyte complex at C6-C7 contributing to mild central canal stenos is. Severe bilateral uncovertebral osteoarthritis at C6-C7. Mild left-sided and moderate right-sided uncovertebral osteoarthritis at C3-C4 and C4-C5. Severe facet osteoarthritis on the right at C3-C4 an d T3-T4 and T4-T5. Additional mild to moderate facet osteoarthritis throughout the remainder the cerv ical and upper thoracic spine with right-sided predominance. This contributes to moderate neural fora mayelin stenosis on the and right at C5-C6 and T4-T5 and bilaterally at C6-C7. Mild neural from stenosi s at the [place] the remaining cervical and upper thoracic levels. Pace calcified sialoliths at the bi lateral carotid and right submandibular glands. Cervical soft tissues are otherwise unremarkable. Vis ualized upper lungs are clear. Postoperative change of prior median sternotomy and coronary artery by pass grafting. IMPRESSION: 1. 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 No acute osseous ad enopathy. 2. Moderate cervical spondylosis with instrumented C5-C6 anterior spinal fusion. 3. Unchanged chronic mild T2-T4 superior endplate compression fractures. Reviewed, dictated and finalized at location A. IMPRESSION: 1. Still ununited type III odontoid fracture with unchanged 4 mm anterolisthesi s. No acute osseous adenopathy. 2. Moderate cervical spondylosis with instrumented C5-C6 anterior spinal fusion . 3. Unchanged chronic mild T2-T4 superior endplate compression fractures.
--- NOTE | ~2025-06-15 | CT_ITS ---
EXAMINATION: CT brain wo con DATE: 06/15/2025 11:11 INDICATION: Head trauma TECHNIQUE: Computed tomography (CT) of the head was performed without intravenous contrast. Sagittal and coronal reconstructions were performed. The mA was adjusted according to patient size. Iterative reconstruction technique was employed. The dose-length product was 681.00 mGy-cm. COMPARISON: head CT dated 04/10/2025 FINDINGS: Chronic left frontal craniotomy. No fracture. No acute intracranial hemorrhage, acute infarction or a bnormal extra axial fluid collection. There is mild scattered white matter hypoattenuation consistent with chronic small vessel ischemic disease. Symmetric prominence of the sulci consistent with mild a ge-appropriate diffuse cerebral volume loss. Ventricles are normal and symmetric. No mass/mass effec t. The orbits, paranasal sinuses and mastoid air cells are normal. IMPRESSION: 1. Normal aging brain with change of prior left frontal craniotomy. No acute intracranial process. Reviewed, dictated and finalized at location A. IMPRESSION: 1. Normal aging brain with change of prior left frontal craniotomy. No acute in tracranial process.
[2025-06-15 10:24] VITALS: BP 111/71; PULSE 79; RESP 15; O2SAT 96
[2025-06-15 10:47] VITALS: TEMP 36.9
--- NOTE | 2025-06-15 10:55 | ED_ITS ---
HPI - General Adult General Chief complaint: Fall Stated complaint: fall History of Present Illness HPI narrative: 75-year-old female present to the emergency department for evaluation for non and 10 right-sided head pain after having a fall from her wheelchair this morning. Patient was at a care facility this morning and had the fall. Patient initially declined any pain or injury to the staff but when patient's family came to check on her she was complaining of right-sided head pain. Patient is on Eliquis and aspirin. In April patient had a subdural and subarachnoid hemorrhage and was treated at [facility] Related Data Home Medications ?Medication ?Instructions ?Recorded ?Confirmed ?Last Taken ?Type amlodipine 10 mg tablet 10 mg PO DAILY 03/10/25 03/26/25 Unknown History aspirin 81 mg chewable tablet 81 mg PO DAILY 03/10/25 03/26/25 Unknown History docusate sodium 100 mg capsule 100 mg PO BID 03/10/25 03/26/25 Unknown History oxycodone 5 mg tablet 5 mg PO Q6H PRN pain 03/10/25 03/26/25 03/10/25 History polyethylene glycol 3350 17 17 g PO DAILY 03/10/25 03/26/25 Unknown History gram/dose oral powder (ClearLax) potassium chloride 10 mEq 10 meq PO DAILY 03/10/25 03/26/25 Unknown History capsule,extended release primidone 250 mg tablet 250 mg PO QID 03/10/25 03/26/25 Unknown History topiramate 25 mg tablet (Topamax) 25 mg PO HS 03/10/25 03/26/25 Unknown History acetaminophen 500 mg capsule 1,000 mg PO Q6H PRN fever or pain 03/25/25 03/26/25 Unknown History Allergies Allergy/AdvReac Type Severity Reaction Status Date / Time morphine Allergy Unknown Unknown Verified 03/25/25 12:49 Review of Systems 2 Review of Systems: All systems reviewed & are unremarkable except as noted in HPI and below PMFSH Past Medical History Medical History Seizure disorder Perforation bowel DVT (deep venous thrombosis) Anorexia C2 cervical fracture CAD (coronary artery disease) Coarse tremors Subdural hemorrhage Subarachnoid hemorrhage Migraine Hypertension Family History Family History Mother Hypertension Spinal cord cancer Sibling Colon cancer Hypertension Other Breast cancer Social History Social History Smoking packs per day: 0.5 Smoking cigarettes per day: 10.0 Years smoked: 20 Smoking pack-years: 10.00 Smoking status: Former smoker Tobacco type: cigarettes Second hand tobacco smoke exposure: No Alcohol intake: never Substance use: never Spiritual care concerns: No Exam 2 Narrative: APPEARANCE: Soft spoken with no appearance of distress HEAD: normocephalic, evidence of old intracranial surgery but no acute contusions or hematomas or lacerations. EYES: PERRLA/EOMI, conjunctivae clear. NOSE: Normal no drainage EARS:TMS clear with good light reflex. THROAT: Pharynx clear, no exudate. NECK: Supple. No adenopathy, no masses. RESPIRATORY: Airway patent, respirations nonlabored. Clear to auscultation bilaterally, no rales, rhonchi, wheezing. CARDIOVASCULAR: Regular rate and rhythm without murmurs rubs or gallops. ABDOMINAL: Soft, nontender, nondistended, normal bowel sounds MUSCULOSKELETAL: Moves all extremities. Strength/ROM intact, No edema, No calf tenderness. NEURO: Alert, patient reports decreased strength of right-sided since the brain bleed in April SKIN: Warm, dry. Normal Color Course Vital Signs Vital signs: Vital Signs Pulse Rate 79 06/15/25 10:24 Respiratory Rate 15 06/15/25 10:24 Blood Pressure 111/71 06/15/25 10:24 Pulse Oximetry 96 06/15/25 10:24 Temperature 98.4 F 06/15/25 10:47 Pulse Rate 71 06/15/25 13:14 Respiratory Rate 16 06/15/25 13:14 Blood Pressure 132/73 06/15/25 13:14 Pulse Oximetry 100 06/15/25 13:14 Medical Decision Making MDM Narrative Medical decision making narrative: 75-year-old female per the Emergency Department for evaluation having a fall from her wheelchair. Patient is currently afebrile. Patient has no acute abnormalities on her CMP. Patient does complain of right-sided head pain but patient has negative head CT and no changes on her cervical spine CT. Patient was updated on results of the workup patient was discharged back to her care facility. Differential Diagnosis Differential Diagnosis: UTI, rheumatoid, subarachnoid hemorrhage, pneumonia, COVID, RSV, influenza, dehydration Vital Signs Vital Signs: Vital Signs Pulse Rate 79 06/15/25 10:24 Respiratory Rate 15 06/15/25 10:24 Blood Pressure 111/71 06/15/25 10:24 Pulse Oximetry 96 06/15/25 10:24 Temperature 98.4 F 06/15/25 10:47 Pulse Rate 71 06/15/25 13:14 Respiratory Rate 16 06/15/25 13:14 Blood Pressure 132/73 06/15/25 13:14 Pulse Oximetry 100 06/15/25 13:14 Lab Data Lab results reviewed: Yes I reviewed the patient's lab results. 06/15/25 11:49 06/15/25 11:49 Labs: Lab Results 06/15/25 Range/Units 11:49 WBC 4.5 (4.5-10.0) K/mm3 RBC 3.94 L (4.2-5.4) M/mm3 Hgb 10.9 L (12.0-15.0) g/dL Hct 36.2 L (37.0-47.0) % MCV 91.9 (80-100) fl MCH 27.7 (26-34) pg MCHC 30.1 L (32-36) g/dl RDW 24.2 H (11.5-14.5) % Plt Count 174 (150-375) k/mm3 MPV 10.0 (7.4-10.4) fl Immature Gran % (Auto) 0.2 (0-0.5) % Neut % (Auto) 64.7 (45.5-73.1) % Lymph % (Auto) 25.4 (18.3-44.2) % [place] % (Auto) 7.5 (2.6-8.5) % Eos % (Auto) 1.8 (0-4.4) % Baso % (Auto) 0.4 (0.2-1.2) % Lymph # (Auto) 1.15 (0.9-3.2) K/mm3 [place] # (Auto) 0.3 (0.1-0.6) K/mm3 Eos # (Auto) 0.1 (0-0.3) K/mm3 Baso # (Auto) 0.0 (0.0-0.1) K/mm3 Abs Immat Gran (auto) 0.01 (0.00-0.031) K/mm3 Absolute Neuts (auto) 2.9 (1.3-6.7) K/mm3 Absolute Nucleated RBC 0.000 (0.0-0.012) K/mm3 Band Neutrophils % Not Reportable Nucleated RBC % 0.0 (0.0-0.2) % Platelet Estimate Adequate (Adequate) Anisocytosis 2+ Ovalocytes 1+ [place] Cells 1+ Schistocytes None seen PT 14.3 (11.1-14.7) Seconds INR 1.1 APTT 30.9 (22.3-36.8) Seconds Sodium 140 (137-145) mmol/L Potassium 3.8 (3.4-5.0) mmol/L Chloride 110 H (98-107) mmol/L Carbon Dioxide 20 L (22-30) mmol/L Anion Gap 10 (4-12) mmol/L BUN 10 (7-17) mg/dL Creatinine 0.68 L (0.7-1.0) mg/dL Estim Creat Clear Calc 62 ml/min Estimated GFR > 60 (59 - ) Glucose 97 (65-110) mg/dL Calcium 9.0 (8.4-10.2) mg/dL Total Bilirubin 0.1 L (0.2-1.3) mg/dL AST 26 (14-36) U/L ALT 17 (6-35) U/L Alkaline Phosphatase 188 H (38-126) U/L Total Protein 8.1 (6.3-8.2) g/dL Albumin 3.5 (3.5-5.1) g/dL Imaging Data Radiologist's impression: Impressions Head CT 06/15/25 11:12 IMPRESSION: 1. Normal aging brain with change of prior left frontal craniotomy. No acute intracranial process. Cervical Spine CT 06/15/25 11:19 IMPRESSION: 1. 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 No acute osseous adenopathy. 2. Moderate cervical spondylosis with instrumented C5-C6 anterior spinal fusion. 3. Unchanged chronic mild T2-T4 superior endplate compression fractures. Discharge Plan Discharge Clinical Impression: Head injury Patient Disposition: NH [facility]/Asst Living Condition: Stable Instructions: Antibiotic Form, Head Injury (ED) Additional Instructions: Have close follow-up with your primary care physician. Patient Language: Setswana Prescriptions: No Action acetaminophen 500 mg capsule 1,000 mg PO Q6H PRN (Reason: fever or pain) oxycodone 5 mg tablet 5 mg PO Q6H PRN (Reason: pain) primidone 250 mg tablet 250 mg PO QID aspirin 81 mg tablet,chewable 81 mg PO DAILY amlodipine 10 mg tablet 10 mg PO DAILY potassium chloride 10 mEq capsule, extended release 10 meq PO DAILY docusate sodium 100 mg capsule 100 mg PO BID polyethylene glycol 3350 [ClearLax] 17 gram/dose powder 17 g PO DAILY topiramate [Topamax] 25 mg tablet 25 mg PO HS Eliquis 5 mg tablet 5 mg PO Q12HR Qty: 60 0RF simethicone 80 mg Tablet,Chewable 80 mg PO QID PRN (Reason: Gas Discomfort) Qty: 30 0RF levetiracetam [Keppra] 250 mg tablet 1,500 mg PO BIDWM Qty: 60 0RF cephalexin 500 mg capsule 500 mg PO Q6H 7 Days Qty: 28 0RF Follow-up/Referrals: UNKNOWN,DOCTOR [Primary Care Provider] -
[2025-06-15 11:58] LABS: Hematocrit 36.2 % (37.0-47.0); Hemoglobin 10.9 g/dL (12.0-15.0); Immature Granulocyte Percent A 0.2 % (0-0.5); Lymphocytes Absolute Auto 1.15 K/mm3 (0.9-3.2); Mean Corpuscular HGB Conc 30.1 g/dl (32-36); Mean Corpuscular Hemoglobin 27.7 pg (26-34); Mean Corpuscular Volume 91.9 fl (80-100); Nucleated Red Blood Cells Absolute Auto 0.000 K/mm3 (0.0-0.012); Nucleated Red Blood Cells Perc 0.0 % (0.0-0.2); Platelet Count Result 174 k/mm3 (150-375); Red Blood Count 3.94 M/mm3 (4.2-5.4); White Blood Count 4.5 K/mm3 (4.5-10.0)
[2025-06-15 12:05] LABS: Alanine Aminotransferase 17 U/L (6-35); Albumin Level 3.5 g/dL (3.5-5.1); Alkaline Phosphatase 188 U/L (38-126); Anion Gap 10 mmol/L (4-12); Aspartate Amino Transferase 26 U/L (14-36); Bilirubin,Total 0.1 mg/dL (0.2-1.3); Blood Urea Nitrogen 10 mg/dL (7-17); Calcium 9.0 mg/dL (8.4-10.2); Carbon Dioxide 20 mmol/L (22-30); Chloride 110 mmol/L (98-107); Estimated CRCL calculation 62 ml/min; Estimated Glomerular Filt Rate > 60; Glucose 97 mg/dL (65-110); Potassium 3.8 mmol/L (3.4-5.0); Sodium 140 mmol/L (137-145); Total Protein 8.1 g/dL (6.3-8.2)
[2025-06-15 12:09] LABS: INR 1.1; Prothrombin Time 14.3 Seconds (11.1-14.7)
[2025-06-15 12:10] LABS: Partial Thromboplastin Time 30.9 Seconds (22.3-36.8)
[2025-06-15 12:28] LABS: Anisocytosis 2+; Burr Cells 1+; Ovalocytes 1+; Schistocytes None Seen
[2025-06-15 13:14] VITALS: BP 132/73; PULSE 71; RESP 16; O2SAT 100
== END 2025-06-15 13:28 ==
PROVIDERS: Emergency Provider Emergency Medicine
DX: S09.90XA Unspecified injury of head, initial encounter (principal); W05.0XXA Fall from non-moving wheelchair, initial encounter; G40.909 Epilepsy, unspecified, not intractable, without status epilepticus; Z86.718 Personal history of other venous thrombosis and embolism; I25.10 Atherosclerotic heart disease of native coronary artery without angina pectoris; I10 Essential (primary) hypertension; Z87.891 Personal history of nicotine dependence
CPT/HCPCS: 36415; 70450; 72125; 80053; 85025; 85610; 85730; 99284

== ENCOUNTER 2025-06-22 08:03 | Emergency (ER) | payer MEDICARE, MEDICAID, SELFPAY ==
--- NOTE | ~2025-06-22 | CT_ITS ---
CT head without contrast Indication: Head injury COMPARISON: 06/15/2025 Technique: Serial scans were obtained through the brain without the administration of contrast. Dose reduction technique was used on this scan by utilizing automated exposure control and iterative recon struction technique. The dose-length product (DLP) was 605.33 mGy-cm. Findings: There is no evidence of intracranial hemorrhage, mass lesion, or acute infarct. The ventri cles and subarachnoid spaces are dilated, consistent with mild atrophy. Low attenuation regions are seen within the periventricular white matter bilaterally, likely representing changes from chronic mi crovascular ischemic disease. There is no evidence of edema, mass effect or midline shift. The visu alized paranasal sinuses and mastoid air cells are clear. Stable left frontal craniotomy change. Impression: No intracranial hemorrhage, mass, or acute infarct. Atrophy and chronic white matter changes, as above. Reviewed, dictated and finalized at [facility]. Impression: No intracranial hemorrhage, mass, or acute infarct. Atrophy and chronic white matter changes, as above.
--- NOTE | ~2025-06-22 | XR_ITS ---
Right Knee Technique: AP and lateral views were obtained. Clinical History: Pain Findings: No fracture or dislocation is seen. Osseous alignment is anatomic. Moderate tricompartmenta l degenerative joint disease present. There is chondrocalcinosis of the menisci. No joint effusion is seen. Impression: Moderate degenerative change. Chondrocalcinosis of the menisci. Reviewed, dictated and finalized at location . Impression: Moderate degenerative change. Chondrocalcinosis of the menisci.
--- NOTE | ~2025-06-22 | CT_ITS ---
Noncontrast CT scan of the cervical spine Technique: Multiple contiguous axial [address] images of the cervical spine were obtained and rec onstructed in 2D sagittal and coronal planes on the acquisition scanner. Dose reduction technique was used on this scan by utilizing automated exposure control, adjustment of the mA and/or kV according to patient size. The dose-length product (DLP) was 253.79 mGy-cm. Clinical History: Pain COMPARISON: 06/15/2025 Findings: Stable type III odontoid fracture involving the odontoid process and C2 vertebral body. Ali gnment is stable from prior exam, with mild anterior displacement of the superior fracture fragment r elative to the remainder of the C2 vertebral body. There are severe degenerative changes reticulation of the odontoid process with the anterior arch of C1. There is anterior fusion from C5 to C6. There are extensive anterior bridging osteophytes from C3 through C7, compatible DISH. Stable moderate to a dvanced degenerative disc narrowing at C6-C7. Stable moderate degenerative disc narrowing at C3-C4. Impression: Stable type III odontoid fracture. Stable degenerative spondylitic changes. Stable fusion from C5-C6. Reviewed, dictated and finalized at location . Impression: Stable type III odontoid fracture. Stable degenerative spondylitic changes. Stable fusion from C5-C6.
[2025-06-22 08:05] VITALS: BP 117/79; PULSE 79; RESP 18; TEMP 36.6; O2SAT 99
--- NOTE | 2025-06-22 08:11 | ED.GENADULT ---
HPI - General Adult General Chief complaint: Fall Stated complaint: fall Time Seen by Provider: 06/22/25 08:08 History of Present Illness HPI narrative: Deedee is a 75F with a PMH of anorexia, GI bleed, depression, DVT, coloenteric fistula, perforated bowel, seizure disorder, HTN, and a TBI that was brought to the ED via EMS for a fall. She was leaning forward, tripped and fell. She hit her right knee and head. Related Data Home Medications ?Medication ?Instructions ?Recorded ?Confirmed ?Last Taken ?Type amlodipine 10 mg tablet 10 mg PO DAILY 03/10/25 03/26/25 Unknown History aspirin 81 mg chewable tablet 81 mg PO DAILY 03/10/25 03/26/25 Unknown History docusate sodium 100 mg capsule 100 mg PO BID 03/10/25 03/26/25 Unknown History oxycodone 5 mg tablet 5 mg PO Q6H PRN pain 03/10/25 03/26/25 03/10/25 History polyethylene glycol 3350 17 17 g PO DAILY 03/10/25 03/26/25 Unknown History gram/dose oral powder (ClearLax) potassium chloride 10 mEq 10 meq PO DAILY 03/10/25 03/26/25 Unknown History capsule,extended release primidone 250 mg tablet 250 mg PO QID 03/10/25 03/26/25 Unknown History topiramate 25 mg tablet (Topamax) 25 mg PO HS 03/10/25 03/26/25 Unknown History acetaminophen 500 mg capsule 1,000 mg PO Q6H PRN fever or pain 03/25/25 03/26/25 Unknown History Allergies Allergy/AdvReac Type Severity Reaction Status Date / Time morphine Allergy Unknown Unknown Verified 06/22/25 08:18 Review of Systems Review of Systems: All systems reviewed & are unremarkable except as noted in HPI and below PMFSH Past Medical History Medical History Seizure disorder Perforation bowel DVT (deep venous thrombosis) Anorexia C2 cervical fracture CAD (coronary artery disease) Coarse tremors Subdural hemorrhage Subarachnoid hemorrhage Migraine Hypertension Family History Family History Mother Hypertension Spinal cord cancer Sibling Colon cancer Hypertension Other Breast cancer Social History Social History Smoking packs per day: 0.5 Smoking cigarettes per day: 10.0 Years smoked: 20 Smoking pack-years: 10.00 Smoking status: Former smoker Tobacco type: cigarettes Second hand tobacco smoke exposure: No Alcohol intake: never Substance use: never Spiritual care concerns: No Exam Const: General: cooperative, healthy appearing, comfortable, no acute distress, well developed, alert, awake and Physically active Orientation/consciousness: oriented to person, oriented to place and oriented to time HENMT: Head: normal to inspection, normocephalic and atraumatic Ears: hearing grossly normal bilaterally and external ears normal Face/Nose/Sinus: Normal external nose present Eyes: General: appearance normal, both eyes and all related structures Periorbital: periorbital findings normal Sclera: sclerae normal Pupils: Equal, round and reactive pupils present Neck: Neck: normal visual inspection Chest: Chest palpation & inspection: normal inspection of the chest Resp: Effort & Inspection: normal respiratory effort, able to speak in complete sentences and no respiratory distress Auscultation: clear to auscultation bilaterally Cardio: Jugular venous distension: no JVD Rate: regular rate Rhythm: regular rhythm Skin: General skin exam: normal color and no rashes or lesions noted Neuro: General: oriented to person, oriented to place and oriented to time Cranial nerves: Yes Equal, round and reactive pupils present Other: Patient has slowed speech and trouble finding words which is reportedly her baseline. Extrem: General: normal to inspection Course Course Emergency Course: CT head without contrast Indication: Head injury COMPARISON: 06/15/2025 Technique: Serial scans were obtained through the brain without the administration of contrast. Dose reduction technique was used on this scan by utilizing automated exposure control and iterative reconstruction technique. The dose-length product (DLP) was 605.33 mGy-cm. Findings: There is no evidence of intracranial hemorrhage, mass lesion, or acute infarct. The ventricles and subarachnoid spaces are dilated, consistent with mild atrophy. Low attenuation regions are seen within the periventricular white matter bilaterally, likely representing changes from chronic microvascular ischemic disease. There is no evidence of edema, mass effect or midline shift. The visualized paranasal sinuses and mastoid air cells are clear. Stable left frontal craniotomy change. Impression: No intracranial hemorrhage, mass, or acute infarct. Atrophy and chronic white matter changes, as above. Noncontrast CT scan of the cervical spine Technique: Multiple contiguous axial [address] images of the cervical spine were obtained and reconstructed in 2D sagittal and coronal planes on the acquisition scanner. Dose reduction technique was used on this scan by utilizing automated exposure control, adjustment of the mA and/or kV according to patient size. The dose-length product (DLP) was 253.79 mGy-cm. Clinical History: Pain COMPARISON: 06/15/2025 Findings: Stable type III odontoid fracture involving the odontoid process and C2 vertebral body. Alignment is stable from prior exam, with mild anterior displacement of the superior fracture fragment relative to the remainder of the C2 vertebral body. There are severe degenerative changes reticulation of the odontoid process with the anterior arch of C1. There is anterior fusion from C5 to C6. There are extensive anterior bridging osteophytes from C3 through C7, compatible DISH. Stable moderate to advanced degenerative disc narrowing at C6-C7. Stable moderate degenerative disc narrowing at C3-C4. Impression: Stable type III odontoid fracture. Stable degenerative spondylitic changes. Stable fusion from C5-C6. Right Knee Radiographs Technique: AP and lateral views were obtained. Clinical History: Pain Findings: No fracture or dislocation is seen. Osseous alignment is anatomic. Moderate tricompartmental degenerative joint disease present. There is chondrocalcinosis of the menisci. No joint effusion is seen. Impression: Moderate degenerative change. Chondrocalcinosis of the menisci. Vital Signs Vital signs: Vital Signs Temperature 97.9 F 06/22/25 08:05 Pulse Rate 79 06/22/25 08:05 Respiratory Rate 18 06/22/25 08:05 Blood Pressure 117/79 06/22/25 08:05 Pulse Oximetry 99 06/22/25 08:05 Oxygen Delivery Room Air 06/22/25 08:05 Temperature 97.9 F 06/22/25 08:05 Pulse Rate 79 06/22/25 08:05 Respiratory Rate 18 06/22/25 08:05 Blood Pressure 117/79 06/22/25 08:05 Pulse Oximetry 99 06/22/25 08:05 Oxygen Delivery Room Air 06/22/25 08:05 Medical Decision Making Vital Signs Vital Signs: Vital Signs Temperature 97.9 F 06/22/25 08:05 Pulse Rate 79 06/22/25 08:05 Respiratory Rate 18 06/22/25 08:05 Blood Pressure 117/79 08/17/25 08:05 Pulse Oximetry 99 06/22/25 08:05 Oxygen Delivery Room Air 06/22/25 08:05 Temperature 97.9 F 06/22/25 08:05 Pulse Rate 79 06/22/25 08:05 Respiratory Rate 18 06/22/25 08:05 Blood Pressure 117/79 06/22/25 08:05 Pulse Oximetry 99 06/22/25 08:05 Oxygen Delivery Room Air 06/22/25 08:05 Discharge Plan Discharge Clinical Impression: Fall Patient Disposition: Home Condition: Stable Instructions: Fall Prevention (ED) Patient Language: Surinamese Prescriptions: New oxycodone 5 mg tablet 5 mg PO Q8H PRN (Reason: pain) Qty: 10 0RF oxycodone 5 mg tablet 5 mg PO Q8H PRN (Reason: pain) Qty: 10 0RF No Action acetaminophen 500 mg capsule 1,000 mg PO Q6H PRN (Reason: fever or pain) oxycodone 5 mg tablet 5 mg PO Q6H PRN (Reason: pain) primidone 250 mg tablet 250 mg PO QID aspirin 81 mg tablet,chewable 81 mg PO DAILY amlodipine 10 mg tablet 10 mg PO DAILY potassium chloride 10 mEq capsule, extended release 10 meq PO DAILY docusate sodium 100 mg capsule 100 mg PO BID polyethylene glycol 3350 [ClearLax] 17 gram/dose powder 17 g PO DAILY topiramate [Topamax] 25 mg tablet 25 mg PO HS Eliquis 5 mg tablet 5 mg PO Q12HR Qty: 60 0RF simethicone 80 mg Tablet,Chewable 80 mg PO QID PRN (Reason: Gas Discomfort) Qty: 30 0RF levetiracetam [Keppra] 250 mg tablet 1,500 mg PO BIDWM Qty: 60 0RF cephalexin 500 mg capsule 500 mg PO Q6H 7 Days Qty: 28 0RF Follow-up/Referrals: Julio Manriquez MD [Primary Care Provider] -
[2025-06-22 08:40] VITALS: BP 134/82; PULSE 77; RESP 16; O2SAT 99
--- NOTE | 2025-06-22 08:40 | PC.NURSE ---
RN attempting to get ahold of nurse at [facility] for how patient takes medications, per packet sent from facility, patient has Gtube but also is on a regular and thin diet. Verifying patient's restrictions with medications, will give norco once clarified.
--- NOTE | 2025-06-22 08:47 | PC.NURSE ---
Per Vickie at [facility] patient takes her medications whole with water.
[2025-06-22] MEDS: HYDROcodone/acetaminophen (*CRX) 5-325 MG TABLET 1 TAB PO (08:49)
[2025-06-22 09:12] VITALS: BP 126/76; PULSE 77; RESP 17; TEMP 36.7; O2SAT 99
--- NOTE | 2025-06-22 09:16 | PC.NURSE ---
Report called to Vickie at [facility]
[2025-06-22 09:21] VITALS: BP 126/76; PULSE 77; RESP 17; TEMP 36.6; O2SAT 99
== END 2025-06-22 09:21 | disposition home or self-care (01) ==
PROVIDERS: Emergency Provider Family Medicine; PCP Family Medicine
DX: S09.90XA Unspecified injury of head, initial encounter (principal); M25.561 Pain in right knee; I10 Essential (primary) hypertension; I25.10 Atherosclerotic heart disease of native coronary artery without angina pectoris; Z87.891 Personal history of nicotine dependence; W01.0XXA Fall on same level from slipping, tripping and stumbling without subsequent striking against object, initial encounter
CPT/HCPCS: 70450; 72125; 73560; 99284; A9270

== ENCOUNTER 2025-06-25 09:38 | Outpatient (NON) | payer MEDICARE, SELFPAY ==
[2025-06-25 10:28] LABS: Hematocrit 33.1 % (35.0-42.0); Hemoglobin 10.1 g/dL (11.7-13.8); Mean Corpuscular HGB Conc 30.5 g/dL (32-36); Mean Corpuscular Hemoglobin 27.6 pg (27.0-31.0); Mean Corpuscular Volume 90.4 fL (78.0-102.0); Platelet Count Result 182 K/mm3 (150-420); Red Blood Count 3.66 M/mm3 (4.20-5.40); White Blood Count 3.5 K/mm3 (4.8-10.8)
[2025-06-25 10:41] LABS: Alanine Aminotransferase 27 U/L (6-35); Albumin Level 3.1 g/dL (3.5-5.1); Alkaline Phosphatase 220 U/L (38-126); Anion Gap 5 mmol/L (4-12); Aspartate Amino Transferase 29 U/L (14-36); Bilirubin,Total 0.3 mg/dL (0.2-1.3); Blood Urea Nitrogen 12 mg/dL (7-17); Calcium 9.2 mg/dL (8.4-10.2); Carbon Dioxide 27 mmol/L (22-30); Chloride 109 mmol/L (98-107); Cholesterol 164 mg/dL (0-200); Estimated Glomerular Filt Rate > 60; Glucose 81 mg/dL (65-110); HDL Direct 53 mg/dL; Osmolality Calculated 290 mOsm/kg (285-295); Potassium 4.4 mmol/L (3.4-5.0); Sodium 141 mmol/L (137-145); Total Protein 6.8 g/dL (6.3-8.2); Triglycerides 103 mg/dL (<150)
[2025-06-25 10:54] LABS: Hemoglobin A1C 5.1 % (<5.7)
[2025-06-25 11:12] LABS: Thyroid Stimulating Hormone 1.280 uIU/mL (0.465-4.680)
[2025-06-25 11:48] LABS: Vitamin B12 398.0 pg/mL (239-931)
== END 2025-06-25 09:39 | disposition home or self-care (01) ==
LOC: CHSLAB 09:52
PROVIDERS: PCP Family Medicine
DX: A41.9 Sepsis, unspecified organism (principal); J96.00 Acute respiratory failure, unspecified whether with hypoxia or hypercapnia; E46 Unspecified protein-calorie malnutrition; K92.2 Gastrointestinal hemorrhage, unspecified; N18.2 Chronic kidney disease, stage 2 (mild); E78.5 Hyperlipidemia, unspecified; Z13.1 Encounter for screening for diabetes mellitus
CPT/HCPCS: 36415; 80053; 80061; 80177; 82607; 82746; 83036; 84436; 84443; 85027

== ENCOUNTER 2025-08-04 07:13 | Outpatient (NON) | payer MEDICARE, SELFPAY ==
[2025-08-04 08:12] LABS: Add Urine Microscopic? YES; Appearance Urine Turbid (Clear); Glucose Urine UA Negative (Negative); Leukocyte Esterase Ur 2+ LEU/UL (Negative); Nitrate Urine Negative (Negative); Specific Grav Ur 1.015 (1.010-1.020)
== END 2025-08-04 07:14 | disposition home or self-care (01) ==
LOC: CHSLAB 07:16
PROVIDERS: PCP Family Medicine; Visit Provider Internal Medicine
DX: I20.0 Unstable angina (principal); N39.0 Urinary tract infection, site not specified
CPT/HCPCS: 81001; 87086; 87186

== ENCOUNTER 2025-09-24 08:35 | Outpatient (CLI) | payer MEDICARE, MEDICAID, SELFPAY ==
--- NOTE | ~2025-09-24 | XR_ITS ---
EXAMINATION: XR enema water soluble DATE: 09/24/2025 09:58 INDICATION: Assess Shepard's pouch prior to planned end colostomy takedown. TECHNIQUE: A meter installer radiograph was obtained. A catheter was inserted into the patient's rectum. Water-soluble contrast was infused by gravity. Fluoroscopic spot images and conventional radiographs were obtained. Fluoroscopy exposure time was 1.3 minutes. A total of 36 fluoroscopic images and 5 overhead radiographs were recorded. Total DAP was 34.765 mGycm^2. COMPARISON: CT dated 05/24/2025 FINDINGS: Cable Technician images demonstrate postoperative change of prior L5-S1 anterior spinal fusion with a couple interbody fusion devices. No dilated gas-filled loops of bowel to suggest obstruction. Subsequent images demonstrate filling of the Shepard's pouch. There are a few diverticula along the Shepard's pouch. There is an enterocolonic fistula with contrast extending from the distal margin Shepard's pouch and filling multiple normal-appearing and peristalsing loops of small bowel. IMPRESSION: 1. Intracolonic fistula between the small bowel in the pelvis and the distal margin of a Shepard's pouch. Reviewed, dictated and finalized at location A. [facility] IMPRESSION: 1. Intracolonic fistula between the small bowel in the pelvis and the distal ma rgin of a Shepard's pouch.
== END 2025-09-24 08:36 | disposition home or self-care (01) ==
PROVIDERS: PCP Family Medicine; Visit Provider Surgery
DX: K57.92 Diverticulitis of intestine, part unspecified, without perforation or abscess without bleeding (principal); K63.2 Fistula of intestine; Z93.9 Artificial opening status, unspecified
CPT/HCPCS: 74270

== ENCOUNTER 2025-09-24 11:09 | Outpatient (CLI) | payer MEDICARE, MEDICAID, SELFPAY ==
[2025-09-24 13:10] LABS: Hematocrit 37.8 % (37.0-47.0); Hemoglobin 11.3 g/dL (12.0-15.0)
[2025-09-24 13:26] LABS: INR 1.0; Partial Thromboplastin Time 29.3 Seconds (22.3-36.8); Prothrombin Time 13.7 Seconds (11.1-14.7)
[2025-09-24 13:41] LABS: Anion Gap 5 mmol/L (4-12); Blood Urea Nitrogen 15 mg/dL (7-17); Calcium 8.9 mg/dL (8.4-10.2); Carbon Dioxide 27 mmol/L (22-30); Chloride 107 mmol/L (98-107); Estimated Glomerular Filt Rate > 60; Glucose 97 mg/dL (65-110); Potassium 3.9 mmol/L (3.4-5.0); Sodium 139 mmol/L (137-145)
== END 2025-09-24 11:10 | disposition home or self-care (01) ==
LOC: ANHSURGERY 11:14
PROVIDERS: Anesthesiology; PCP Family Medicine; Visit Provider Surgery
DX: Z01.812 Encounter for preprocedural laboratory examination (principal); N18.2 Chronic kidney disease, stage 2 (mild); K57.92 Diverticulitis of intestine, part unspecified, without perforation or abscess without bleeding
CPT/HCPCS: 36415; 80048; 85014; 85018; 85610; 85730; 86850; 86900; 86901

== ENCOUNTER 2025-10-15 17:04 | Inpatient (IN) | payer MEDICARE, MEDICAID, SELFPAY ==
[2025-09-24 11:27] VITALS: BMI 25.5
--- NOTE | 2025-09-24 12:13 | PC.NURSE ---
[facility] has started construction of its new state of the art ER which will open Spring 2026. With this, we anticipate parking may be a challenge for some our surgical patients and families. Parking spaces are limited but are available for all Surgical, obstetrics, and ER patients sharing this lot. If you arrive and find you are having a hard time finding a parking space, please note that we understand the challenges, please drive around the hospital and park near Hospital Entrance 1. When you enter this entrance, you can ask a volunteer to direct or take you back to the surgical waiting area to check in. We appreciate everyone?s understanding of these expected challenges while we build for your future. Report to the Outpatient Waiting Room, entrance under the green pavilion located off [address], at time __9:00AM___ on date __10/01/25___. Planned Procedure Time: ___11:00AM___.? Time changes happen often and if your time is changed the preop area will call you the afternoon before. - You and your visitor will be asked to self-screen and do not enter if you have any COVID symptoms. Please call surgeon if you need to reschedule. - A mask is optional within the hospital at this time. BOWEL PREP PER DR COLES ON DAY BEFORE SURGERY. Patients may have clear liquids (water, carbonated beverages, clear teas, apple juice) until 3 hours prior to surgery (8:00AM) with a maximum of 20 ounces. - No food from midnight until time of surgery and no smoking, or chewing tobacco (or any form of nicotine). No chewing gum, candy or mints. Take only the following medications with a SIP of water on the morning of surgery: __AMLODIPINE, ESCITALOPRAM, KEPPRA, PRIMIDONE. PATIENT MAY HAVE HYDROCODONE NEEDED FOR PAIN. DO NOT STOP ANY OF YOUR OTHER PRESCRIPTION MEDICATIONS PRIOR TO SURGERY EXCEPT THE FOLLOWING Hold all vitamins and supplements for 3 days per anesthesiologist. Medications to discontinue per physician ____HOLD ELIQUIS FOR 3 DAYS PRE-OP PER DR COLES Date to take last dose____EVENING DOSE ON 09/27/25 NO NEED TO HOLD ASPIRIN PER DR COLES. Please no make-up, nail romanian, hairspray, perfume, deodorant, or body powder the day of surgery.? No jewelry (including any body piercings) or valuables the day of surgery, leave them at home.? Please take a shower or bath the night before, or the morning of, surgery with an antibacterial soap.? Wear comfortable, loose fitting clothing.? - Jewelry must be removed prior to entering the operating room.? Rings and piercings that are not removed may be cut off. - The hospital will not accept responsibility for valuables.? - Please leave all valuables, including medications, at home the day of surgery. If you are going home after surgery, a licensed substitute bus driver must drive you home.? - NO public transportation without another adult if you receive anesthesia. - We recommend that an adult stay with you for 24 hours following discharge. - We also recommend that you do not drive, make important decision, drink alcoholic beverages, or take any drugs that were not prescribed by your health care provider for at least 24 hours after your discharge time. Follow any additional instructions given to you from your surgeon. PER DR COLES: BOWEL PREP DAY BEFORE SURGERY ANTIBIOTICS DAY BEFORE SURGERY ENSURE BUNDLE HIBICLENS SHOWER DAY BEFORE SURGERY AND MORNING OF SURGERY. Telephone instructions given to ___PATIENT AND DAUGHTER and asked if any additional questions and then verbalized understanding. Patient advised to call surgeon office or pre surgery nurse liaison [phone] if any additional questions.
[2025-09-24 12:53] VITALS: BP 120/76; PULSE 63; RESP 16; TEMP 36.1; O2SAT 98
--- NOTE | 2025-09-30 11:40 | PC.NURSE ---
RESCHEDULED TO ADD DR WARREN FOR STENT PLACEMENT FOR ABDOMINAL SURGERY TO THE SURGERY FOR OPEN COLOSTOMY TAKEDOWN, SMALL BOWEL RESECTION WITH DR COLES. [facility] has started construction of its new state of the art ER which will open Spring 2026. With this, we anticipate parking may be a challenge for some our surgical patients and families. Parking spaces are limited but are available for all Surgical, obstetrics, and ER patients sharing this lot. If you arrive and find you are having a hard time finding a parking space, please note that we understand the challenges, please drive around the hospital and park near Hospital Entrance 1. When you enter this entrance, you can ask a volunteer to direct or take you back to the surgical waiting area to check in. We appreciate everyone?s understanding of these expected challenges while we build for your future. Report to the Outpatient Waiting Room, entrance under the green pavilion located off [address], at time ___6:00AM____ on date ___10/15/25____. Planned Procedure Time: ___7:30AM .? Time changes happen often and if your time is changed the preop area will call you the afternoon before. - You and your visitor will be asked to self-screen and do not enter if you have any COVID symptoms. Please call surgeon if you need to reschedule. - A mask is optional within the hospital at this time. BOWEL PREP PER DR COLES ON DAY BEFORE SURGERY. Patients may have clear liquids (water, carbonated beverages, clear teas, apple juice) until 3 hours prior to surgery (4:30AM) with a maximum of 20 ounces. - No food from midnight until time of surgery and no smoking, or chewing tobacco (or any form of nicotine). No chewing gum, candy or mints. Take only the following medications with a SIP of water on the morning of surgery: ___AMLODIPINE, ESCITALOPRAM, KEPPRA, PRIMIDONE PT MAY HAVE OXYCODONE NEEDED FOR PAIN DO NOT STOP ANY OF YOUR OTHER PRESCRIPTION MEDICATIONS PRIOR TO SURGERY EXCEPT THE FOLLOWING Hold all vitamins and supplements for 3 days per anesthesiologist. Medications to discontinue per physician _HOLD ELIQUIS 3 DAYS PRE-OP PER DR COLES, PER FAMILY Date to take last dose 10/11/25 Please no make-up, nail turkish, hairspray, perfume, deodorant, or body powder the day of surgery.? No jewelry (including any body piercings) or valuables the day of surgery, leave them at home.? Please take a shower or bath the night before, or the morning of, surgery with an antibacterial soap.? Wear comfortable, loose fitting clothing.? - Jewelry must be removed prior to entering the operating room.? Rings and piercings that are not removed may be cut off. - The hospital will not accept responsibility for valuables.? - Please leave all valuables, including medications, at home the day of surgery. If you are going home after surgery, a licensed canal driver must drive you home.? - NO public transportation without another adult if you receive anesthesia. - We recommend that an adult stay with you for 24 hours following discharge. - We also recommend that you do not drive, make important decision, drink alcoholic beverages, or take any drugs that were not prescribed by your health care provider for at least 24 hours after your discharge time. Follow any additional instructions given to you from your surgeon. PER DR COLES: BOWEL PREP DAY BEFORE SURGERY ANTIBIOTICS DAY BEFORE SURGERY ENSURE BUNDLE PER DR COLES HIBICLENS SHOWER DAY BEFORE AND MORNING OF SURGERY Telephone instructions given to ___PATIENT'S DAUGHTERMARIO and asked if any additional questions and then verbalized understanding. Patient advised to call surgeon office or pre surgery nurse liaison [phone] if any additional questions.
[2025-10-15] VITALS (19 sets, daily range): BP systolic 113–151; BP diastolic 56–81; PULSE 55–114; RESP 13–19; TEMP 36.2–37.6; O2SAT 97–100
--- NOTE | ~2025-10-15 | XR_ITS ---
EXAM/PROCEDURE: XR barium swallow modified HISTORY: Hx dysphasia COMPARISON: None available. TECHNIQUE: Modified barium swallow FLUOROSCOPY time: 3.6 minutes DAP: 1.93 Mak per square centimeter Number of images: 1 IMPRESSION: No aspiration observed. See speech therapist's note for complete evaluation. Reviewed, dictated and finalized at location A. ER ON
[2025-10-15] MEDS: ACETAMINOPHEN 500 MG TABLET 1000 MG PO (07:00)
[2025-10-15] MEDS: KETOROLAC 15 MG/ML VIAL (*BKC) IV PUSH (07:00)
[2025-10-15] MEDS: ALVIMOPAN 12 MG CAPSULE PO (07:00)
--- NOTE | 2025-10-15 07:13 | WPDHPUPDATE1 ---
History and Physical Update Update Date/Time: 10/15/25 07:13 History and Physical has been reviewed, including an updated exam of the patient. There are NO changes in the patient's condition. Risks, benefits, and alternatives have been discussed and questions answered. Patient agrees to proceed with procedure.
--- NOTE | 2025-10-15 07:13 | PM.IMHP2 ---
H&P: HPI History of Present Illness Date/Time: 10/15/25 07:13 Chief Complaint: Diverticulitis, ostomy status Narrative: 75 yo woman presents for colostomy take down. She had a hx of perforated diverticulitis and underwent Hartmanns procedure. She has struggled with the ostomy appliance and does not want to live the rest of her life with it. She was counceled on the difficulty of the procedure and potential for long postoperative recovery or complications. She is still wanting to proceed with colostomy takedown. 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 Discussed that small bowel resection will likely be required as well. Review of Systems Review of Systems: All systems reviewed & are unremarkable except as noted in HPI and below Constitutional: Constitutional: Denies chills, Denies fever(s), Denies headache(s) and Denies weight loss Eyes: Eyes: Denies change in vision ENT: Denies dizziness, Denies headache(s), Denies neck mass and Denies throat swelling Cardiovascular: Cardiovascular: Denies chest pain, Denies lightheadedness and Denies dyspnea Respiratory: Respiratory: Denies cough, Denies dyspnea and Denies wheezing Gastrointestinal: Gastrointestinal: Denies abdominal pain, Denies change in bowel habits, Denies nausea and Denies vomiting Genitourinary: Genitourinary: Denies hematuria and Denies dysuria Musculoskeletal: Musculoskeletal: Reports as per HPI Integumentary/Breasts: Skin/Breast: Reports as per HPI Neurologic: Denies dizziness and Denies headache(s) Allergic/Immunologic: Allergic/Immunologic: Denies throat swelling and Denies wheezing [facility] Past Medical History Medical History (Updated 08/22/25 @ 11:22 by Gala Hope CMA) Seizure disorder Perforation bowel DVT (deep venous thrombosis) Anorexia C2 cervical fracture CAD (coronary artery disease) Coarse tremors Subdural hemorrhage Subarachnoid hemorrhage Migraine Hypertension Surgical History Surgical History (Updated 08/22/25 @ 11:22 by Gala Hope CMA) History of colon resection Exploratory laparotomy Sigmoid colon resection with end descending colostomy Ileal resection with [id number] ileal anastomosis 03/28/25 Family History Family History Mother Hypertension Spinal cord cancer Sibling Colon cancer Hypertension Other Breast cancer Social History Social History Smoking packs per day: 0.5 Smoking cigarettes per day: 10.0 Years smoked: 20 Smoking pack-years: 10.00 Smoking status: Former smoker Tobacco type: cigarettes Second hand tobacco smoke exposure: No Smoking end date: 05/06/95 Alcohol intake: never Substance use: never Living arrangements: with family Spiritual care concerns: No Meds Home Medications and Allergies Home Medications ?Medication ?Instructions ?Recorded ?Confirmed ?Type amlodipine 10 mg tablet 10 mg PO DAILY 03/10/25 09/24/25 History aspirin 81 mg chewable tablet 81 mg PO DAILY 03/10/25 09/24/25 History docusate sodium 100 mg capsule 100 mg PO BID 03/10/25 09/24/25 History polyethylene glycol 3350 17 17 g PO DAILY 03/10/25 09/24/25 History gram/dose oral powder (ClearLax) potassium chloride 10 mEq 10 meq PO DAILY 03/10/25 09/24/25 History capsule,extended release primidone 250 mg tablet 250 mg PO QID 03/10/25 09/24/25 History topiramate 25 mg tablet (Topamax) 25 mg PO HS 03/10/25 09/24/25 History acetaminophen 500 mg capsule 1,000 mg PO Q6H PRN fever or pain 03/25/25 09/24/25 History apixaban 5 mg tablet (Eliquis) 5 mg PO Q12HR #60 tabs 04/27/25 09/24/25 Rx levetiracetam 250 mg tablet 1,500 mg (6 x 250 mg) PO BIDWM #60 04/27/25 09/24/25 Rx (Keppra) tabs oxycodone 5 mg tablet 5 mg PO Q8H PRN pain #10 tabs 06/22/25 09/24/25 Rx oxycodone 5 mg tablet 5 mg PO Q8H PRN pain #10 tabs 06/22/25 09/30/25 Rx ciprofloxacin HCl 500 mg tablet 500 mg PO .COMPLEX #1 tablet 09/15/25 09/24/25 Rx metronidazole 500 mg tablet 500 mg PO .COMPLEX #3 tabs 09/15/25 09/24/25 Rx aspirin 81 mg tablet,delayed 81 mg PO DAILY 09/24/25 09/24/25 History release (Adult Low Dose Aspirin) escitalopram oxalate 15 mg capsule 15 mg PO DAILY 09/24/25 09/24/25 History polyethylene glycol 3350 17 17 g PO DAILY 09/24/25 09/24/25 History gram/dose oral powder (Miralax) Allergies Allergy/AdvReac Type Severity Reaction Status Date / Time morphine Allergy Unknown RASH, Verified 09/30/25 11:38 DISORIENTATION Exam Const: General: no acute distress and alert Orientation/consciousness: patient oriented x3 HENMT: Head: normocephalic and atraumatic Ears: hearing grossly normal bilaterally Face/Nose/Sinus: Normal nares present Mouth: Yes Normal oral and palatal mucosa present Eyes: Periorbital: periorbital findings normal Sclera: sclerae normal EOM: EOMs intact bilaterally Neck: Neck: normal visual inspection, no lymphadenopathy and trachea midline Chest: Chest palpation & inspection: normal inspection of the chest Resp: Effort & Inspection: normal respiratory effort Auscultation: clear to auscultation bilaterally Cardio: Jugular venous distension: no JVD Rate: regular rate Rhythm: regular rhythm Heart sounds: S1 normal heart sound present and S2 normal heart sound present Peripheral pulses: Peripheral pulses 2+ throughout GI: Inspection: normal to inspection GI Palp: Yes Soft to palpation, No Tenderness to palpation present (GI), No Guarding due to palpation present (GI) and No Rebound tenderness present Percussion: Yes normal to percussion Auscultation: normal bowel sounds : General: Yes no CVA tenderness Back/Spine/Pelvis: Back: no CVA tenderness Neuro: General: patient oriented x3, no focal motor deficits and CN's II-XI intact bilaterally Cognition (Neuro): normal cognition Speech: normal speech Motor exam (neuro): 5/5 motor strength present throughout Extrem: General: capillary refill normal and no clubbing, cyanosis or edema Assessment and Plan Assessment and plan (1) Diverticulitis: Code(s): K57.92 - Diverticulitis of intestine, part unspecified, without perforation or abscess without bleeding Status: Acute Assessment and Plan: I have recommended open colostomy takedown and small bowel resection. I have discussed the procedure, risks, benefits, and alternatives with the patient. All questions answered. No changes since last seen in office. Urology has been consulted for ureteral stent placement. 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
[2025-10-15] MEDS: LACTATED RINGERS 1,000 ML 30 ML IV CONT ×2 (07:15→11:44)
--- NOTE | 2025-10-15 07:15 | WPDURCON ---
Assessment and Plan Assessment and plan (1) Diverticulitis: Code(s): K57.92 - Diverticulitis of intestine, part unspecified, without perforation or abscess without bleeding Status: Acute Assessment and Plan: Cystoscopy, bilateral ureteral catheterization Urology Consult Note HPI Date Seen: 10/15/25 Requesting Physician: Antonio Coley DO Primary Care Provider: Julio Manriquez MD Consult Narrative Narrative: Deedee Duran is a 75 year old female who has no prior significant urological history and is scheduled for a colostomy takedown small bowel resection. We have been asked to place bilateral ureteral catheters preoperatively. This procedure was explained to the patient and questions were answered. Review of Systems Review of Systems: All systems reviewed & are unremarkable except as noted in HPI and below PMFSH Past Medical History Medical History (Updated 08/22/25 @ 11:22 by Gala Hope [facility]) Seizure disorder Perforation bowel DVT (deep venous thrombosis) Anorexia C2 cervical fracture CAD (coronary artery disease) Coarse tremors Subdural hemorrhage Subarachnoid hemorrhage Migraine Hypertension Surgical History Surgical History (Updated 08/22/25 @ 11:22 by Gala Hope [facility]) History of colon resection Exploratory laparotomy Sigmoid colon resection with end descending colostomy Ileal resection with [id number] ileal anastomosis 03/28/25 Family History Family History Mother Hypertension Spinal cord cancer Sibling Colon cancer Hypertension Other Breast cancer Social History Social History Smoking packs per day: 0.5 Smoking cigarettes per day: 10.0 Years smoked: 20 Smoking pack-years: 10.00 Smoking status: Former smoker Tobacco type: cigarettes Second hand tobacco smoke exposure: No Smoking end date: 05/06/95 Alcohol intake: never Substance use: never Living arrangements: with family Spiritual care concerns: No Meds Home Medications and Allergies Home Medications ?Medication ?Instructions ?Recorded ?Confirmed ?Type amlodipine 10 mg tablet 10 mg PO DAILY 03/10/25 09/24/25 History aspirin 81 mg chewable tablet 81 mg PO DAILY 03/10/25 09/24/25 History docusate sodium 100 mg capsule 100 mg PO BID 03/10/25 09/24/25 History polyethylene glycol 3350 17 17 g PO DAILY 03/10/25 09/24/25 History gram/dose oral powder (ClearLax) potassium chloride 10 mEq 10 meq PO DAILY 03/10/25 09/24/25 History capsule,extended release primidone 250 mg tablet 250 mg PO QID 03/10/25 09/24/25 History topiramate 25 mg tablet (Topamax) 25 mg PO HS 03/10/25 09/24/25 History acetaminophen 500 mg capsule 1,000 mg PO Q6H PRN fever or pain 03/25/25 09/24/25 History apixaban 5 mg tablet (Eliquis) 5 mg PO Q12HR #60 tabs 04/27/25 09/24/25 Rx levetiracetam 250 mg tablet 1,500 mg (6 x 250 mg) PO BIDWM #60 04/27/25 09/24/25 Rx (Keppra) tabs oxycodone 5 mg tablet 5 mg PO Q8H PRN pain #10 tabs 06/22/25 09/24/25 Rx oxycodone 5 mg tablet 5 mg PO Q8H PRN pain #10 tabs 06/22/25 09/30/25 Rx ciprofloxacin HCl 500 mg tablet 500 mg PO .COMPLEX #1 tablet 09/15/25 09/24/25 Rx metronidazole 500 mg tablet 500 mg PO .COMPLEX #3 tabs 09/15/25 09/24/25 Rx aspirin 81 mg tablet,delayed 81 mg PO DAILY 09/24/25 09/24/25 History release (Adult Low Dose Aspirin) escitalopram oxalate 15 mg capsule 15 mg PO DAILY 09/24/25 09/24/25 History polyethylene glycol 3350 17 17 g PO DAILY 09/24/25 09/24/25 History gram/dose oral powder (Miralax) Allergies Allergy/AdvReac Type Severity Reaction Status Date / Time morphine Allergy Unknown RASH, Verified 09/30/25 11:38 DISORIENTATION
--- NOTE | 2025-10-15 07:17 | WPDHPUPDATE1 ---
History and Physical Update Update Date/Time: 10/15/25 07:17 History and Physical has been reviewed, including an updated exam of the patient. There are NO changes in the patient's condition. Risks, benefits, and alternatives have been discussed and questions answered. Patient agrees to proceed with procedure.
--- NOTE | 2025-10-15 07:31 | WPDANESEPPF ---
Anes - Initial Pre Proc Eval Procedure: Operation Date: 10/15/25 07:30 Proposed Procedures p Open Colostomy Take Down, Small Bowel Resection - Antonio Coley DO s Stent Placement for Abdominal Surgery - Suhail Harding MD Date/Time: 10/15/25 07:31 Surgeon: Antonio Coley DO Pre Op Diagnosis: Diverticulitis Patient Data Age: 75 Gender: F Height: 1.7 m Weight: 74 kg Last Vital Signs Temp 97.0 F L 09/24/25 12:53 Pulse 63 09/24/25 12:53 Resp 16 09/24/25 12:53 BP 120/76 09/24/25 12:53 Pulse Ox 98 09/24/25 12:53 O2 Del Method Room Air 09/24/25 12:53 Allergies Allergy/AdvReac Type Severity Reaction Status Date / Time morphine Allergy Unknown RASH, Verified 09/30/25 11:38 DISORIENTATION Home Medications ?Medication ?Instructions ?Recorded ?Confirmed ?Type amlodipine 10 mg tablet 10 mg PO DAILY 03/10/25 09/24/25 History aspirin 81 mg chewable tablet 81 mg PO DAILY 03/10/25 09/24/25 History docusate sodium 100 mg capsule 100 mg PO BID 03/10/25 09/24/25 History polyethylene glycol 3350 17 17 g PO DAILY 03/10/25 09/24/25 History gram/dose oral powder (ClearLax) potassium chloride 10 mEq 10 meq PO DAILY 03/10/25 09/24/25 History capsule,extended release primidone 250 mg tablet 250 mg PO QID 03/10/25 09/24/25 History topiramate 25 mg tablet (Topamax) 25 mg PO HS 03/10/25 09/24/25 History acetaminophen 500 mg capsule 1,000 mg PO Q6H PRN fever or pain 03/25/25 09/24/25 History apixaban 5 mg tablet (Eliquis) 5 mg PO Q12HR #60 tabs 04/27/25 09/24/25 Rx levetiracetam 250 mg tablet 1,500 mg (6 x 250 mg) PO BIDWM #60 04/27/25 09/24/25 Rx (Keppra) tabs oxycodone 5 mg tablet 5 mg PO Q8H PRN pain #10 tabs 06/22/25 09/24/25 Rx oxycodone 5 mg tablet 5 mg PO Q8H PRN pain #10 tabs 06/22/25 09/30/25 Rx ciprofloxacin HCl 500 mg tablet 500 mg PO .COMPLEX #1 tablet 09/15/25 09/24/25 Rx metronidazole 500 mg tablet 500 mg PO .COMPLEX #3 tabs 09/15/25 09/24/25 Rx aspirin 81 mg tablet,delayed 81 mg PO DAILY 09/24/25 09/24/25 History release (Adult Low Dose Aspirin) escitalopram oxalate 15 mg capsule 15 mg PO DAILY 09/24/25 09/24/25 History polyethylene glycol 3350 17 17 g PO DAILY 09/24/25 09/24/25 History gram/dose oral powder (Miralax) Patient hx anesthesia problems: none Family hx anesthesia problems: none Results Review: All pre-operative results and documents have been reviewed as part of the pre-operative evaluation. [facility] Past Medical History Medical History (Updated 08/22/25 @ 11:22 by Gala Hope CMA) Seizure disorder Perforation bowel DVT (deep venous thrombosis) Anorexia C2 cervical fracture CAD (coronary artery disease) Coarse tremors Subdural hemorrhage Subarachnoid hemorrhage Migraine Hypertension Surgical History Surgical History (Updated 08/22/25 @ 11:22 by Gala Hope CMA) History of colon resection Exploratory laparotomy Sigmoid colon resection with end descending colostomy Ileal resection with [id number] ileal anastomosis 03/28/25 Family History Family History Mother Hypertension Spinal cord cancer Sibling Colon cancer Hypertension Other Breast cancer Social History Social History Smoking packs per day: 0.5 Smoking cigarettes per day: 10.0 Years smoked: 20 Smoking pack-years: 10.00 Smoking status: Former smoker Tobacco type: cigarettes Second hand tobacco smoke exposure: No Smoking end date: 05/06/95 Alcohol intake: never Substance use: never Living arrangements: with family Spiritual care concerns: No Anes - Eval Final PreProcedure Day of Procedure 10/15/25 07:31 Patient weight: normal Heart: regular rate and rhythm Lungs: clear to auscultation Airway: Mallampati scale class II Neurological: alert and oriented Last oral intake: >/= 8 hours ASA classification: IV Emergent: no Anesthetic plan: proceed Anesthesia type and monitoring: general ETT and standard monitoring Results Review: All pre-operative results and documents have been reviewed as part of the pre-operative evaluation. Informed Consent: The patient's anesthetic plan and its attendant risks and benefits were discussed with the patient/family/POA. Questions were solicited and answers provided to the satisfaction of the patient/family/POA.
[2025-10-15] MEDS: metroNIDAZOLE 500 MG/ISO 100ML 500 MG/100 ML BAG 100 MG IVPB (07:52)
[2025-10-15] MEDS: ceFAZolin 2 GM in SODIUM CHLORIDE 0.9% IV 50 ML 100 ML IVPB (07:52)
--- NOTE | 2025-10-15 09:32 | S_PTH ---
PATIENT: Deedee Duran LOC: [id number] U#:[id number] AGE/SX: 75/F ROOM: 310 RE10/15/[address]: Skye Mancia MD : 1950 BED: 01 DIS: 10/25/2025 SPEC #: [id number] RECD: 10/15/25 13:16 STATUS: JG REXu #: [id number] MARY: 10/15/25 09:[address]: Antonio Coley DEPT: [facility] Surgical RECD BY: Ivet Lizama MLT, ([facility]) ENTERED: 10/15/25 13:17 SP TYPE: Surgical OTHR DR: Julio Manriquez MD Tissues: A - Small Bowel B - Rectum Resection C - Small Bowel Procedures: Hematoxylin and Eosin Stain Gross and Microscopic Level 4 Gross and Microscopic Level 5
--- NOTE | 2025-10-15 11:53 | P.OP_ITS ---
Procedure Note - Detailed Date of Procedure 10/15/25 Pre-op Diagnosis Diverticulitis, entero rectal fistula Post-op Diagnosis Same Procedure Performed 1. Open takedown of descending colostomy with partial colectomy and colorectal anastomosis 2. Ileal resection with [id number] anastomosis Surgeon Antonio Coley, DO Anesthesia General Indications this is a 75-year-old woman who has a prior history of perforated diverticulitis. 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 She recovered from this and was remaining in a care home facility. At times the ostomy was having problems with the appliance sealing. She was also very distraught with the colostomy and wanted it reversed. 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 Discussions were made with the patient and family that this is going to be a very detailed and complex procedure. The patient was still wishing to proceed. Decision was made to proceed with open takedown of colostomy and small-bowel resection. Findings Open colostomy takedown was performed. The patient was found to have some adhesions of the cecum and ileum down into the pelvis. These adhesions were carefully taken down and there appeared to be a small abscess between these areas and the rectal stump. The fistula was identified involving a loop of the ileum on the anterior surface of the rectum just distal to the staple line. Once the cecum was freed from these areas of adhesions it appeared healthy and viable. There was 1 small serosal injury from the adhesiolysis that was repaired using 3-0 silk imbricating sutures. The loop of ileum involving the fistula was resected and a [id number] anastomosis was performed. There was still some heavy scarring around the rectal stump that was carefully taken down using blunt dissection and electrocautery. I had to dissect the about 4 cm proximal to the staple line to obtain an area of healthy appearing rectal tissu e. This segment of the rectum was resected to allow for the anastomosis to be on a healthy portion of the rectum. The colostomy was then taken down as well and a 25 mm EEA stapler was chosen for the anastomosis. Once the anvil was placed I then resected the distal 4-5 cm of the descending colon that involved the ostomy. A side to end colorectal anastomosis was then performed. Leak check was performed by filling the pelvis with saline and insufflating air through a rigid proctoscope. No air bubbles were seen leaking at the anastomosis. No other significant abnormalities were noted. Description of Procedure Procedure as well as risks, benefits, and alternatives were discussed with the patient. Written consent was obtained and placed in chart prior to procedure. Patient was brought back to surgical suite. She was placed supine on operating table. Time-out was done to confirm patient and procedure. She was then intubated by the anesthesia department. She was then repositioned to dorsal lithotomy position. Dr. Harding then performed cystoscopy with bilateral ureteral stent placement. Please refer to his operative report for his details. The patient's rectum was then irrigated with saline and Betadine. The rectal area was prepped and draped in sterile fashion using Betadine prep and the abdomen was then prepped and draped in sterile fashion using chlorhexidine prep. Betadine was sprayed over the left lower quadrant colostomy and a 4 x 4 gauze and Tegaderm dressing was placed over this to protect it during the procedure. The patient was placed in slight Trendelenburg position. A 15 cm vertical midline incision was made using a 10 blade scalpel from just above the umbilicus to the suprapubic region. Electrocautery was then used for hemostasis and for dissection through the subcutaneous tissue. The fascia was then incised using electrocautery. I then entered into the peritoneal cavity and identified a few small bowel adhesions up to the abdominal wall. These were carefully taken down using electrocautery and sharp dissection with Metzenbaum scissors. This then allowed me to enter into the remainder of the abdomen and extend the fascial incision throughout the length of the skin incision using electrocautery. There were some omental adhesions in the upper abdomen to a prior mesh from a hernia repair. These were taken down using blunt dissection and electrocautery. An Diaz wound protector was then placed and the abdomen was then thoroughly inspected. The small bowel was retracted out of the pelvis and the rectal adhesions were then carefully taken down using sharp dissection with Metzenbaum scissors. The area of fistula to the rectum was identified with a loop of ileum. This was carefully dissected free using sharp dissection. There were also some adhesions of the cecum down to the rectal stump but these did not appear to be involved with the fistula. The cecal adhesions were carefully taken down using sharp dissection with Metzenbaum scissors. The cecum was then able to be reflected out of the pelvis. I then chose to perform the small bowel resection to prevent any potential leak from the area of the fistula. A window was created in the mesentery just proximal and distal to the area of the fistula and a MARITA 75 mm blue load stapler was advanced across each location and clamped and fired. The mesentery attachments were then taken down using LigaSure bipolar cautery. The specimen was removed and sent to the lab for pathology. A [id number] anastomosis was then performed. The anti mesenteric corner of the staple line on each end of the bowel was cut away using curved Metzenbaum scissors. This created an enterotomy on each end and then a stapler was then passed through each enterotomy and the bowel was clamped together in a [id number] fashion. The stapler was then fired to create the anastomosis. The enterotomy was then closed using a Tx 60 mm stapler. The apex of the staple line was then reinforced using a 3-0 silk seromuscular imbricating suture. The mesenteric rent was then closed using a 3-0 chromic running suture. The anastomosis was carefully inspected and palpated and appeared healthy and viable. It was then released back down in the abdominal cavity. I then moved my attention more towards the rectal stump. There were still some dense adhesions around the staple line and distal rectal stump. Some of these adhesions involved the area where her prior hysterectomy had been performed. These adhesions were carefully taken down using a right angle clamp and electrocautery. After mobilizing the rectal stump there appeared to be healthy appearing rectum about 4 cm distal to the staple line. A window was carefully created in the mesorectum at this location and a contour stapler was then advanced across the rectum and clamped and fired. The remaining mesorectal attachments were taken down using LigaSure bipolar cautery. Care was taken to palpate the ureteral stents to ensure that they were not involved in this area of dissection. The end of the rectal stump was removed and sent to the lab for pathology. I then moved my attention to the descending colostomy. Some of the small bowel adhesions around the descending colon were carefully taken down using sharp dissection with Metzenbaum scissors. The adhesions of the ostomy up to the peritoneum were then carefully taken down as well using electrocautery. I then removed the Diaz wound protector and began dissecting around the ostomy from the skin. An elliptical incision was made in vertical fashion around the ostomy using a 15 blade scalpel. Electrocautery was then used for hemostasis and for dissection around the subcutaneous tissue around the ostomy. The adhesions were carefully taken down to the level of the fascia. The descending colon was then freed from around the fascia using careful dissection with electrocautery. This allowed me to enter into the peritoneal cavity at the ostomy site. The colostomy was then reduced back down into the abdominal cavity. The lateral peritoneal attachments were carefully taken down using blunt dissection and electrocautery. Care was taken to palpate for the left ureteral stent and protected in the retroperitoneum well this dissection was carried out. There appeared to be adequate mobilization of the descending colon to come down into the pelvis without tension. The EEA sizers were then used to identify the proper size for EEA stapler. A 25 mm EEA stapler was chosen. The anvil was placed through the colostomy and advanced out through the anti mesenteric surface of the descending colon. A 3-0 silk pursestring suture was then placed around the anvil to help secure it in place. A MARITA 75 mm blue load stapler was then used to come across the descending colon just distal to the anvil and the stapler was clamped and fired. The remaining mesocolon attachments were then taken down using LigaSure bipolar cautery and this freed up the colostomy completely and it was then removed and sent to the lab for pathology. Anvil was checked again for adequate length and it appeared to come down into the pelvis without any tension. The EEA sizers were then advanced up the rectum and appeared to come up to the staple line. The 25 mm EEA stapler was then advanced up the rectum to just anterior to the staple line. The pin was then carefully opened completely and then the anvil was secured to the pin. The stapler was then carefully closed while ensuring that no other tissue was closed along with it. Once the stapler was completely closed it was then fired to create the anastomosis. Stapler was then removed and the anastomosis was inspected. It appeared healthy and viable. The anastomotic rings were inspected and appeared circumferential. The descending colon was then pinched closed and the rigid proctoscope was inserted into the rectum. The pelvis was filled with sterile saline and air was insufflated through the proctoscope. The anastomosis was visualized dilating and no air bubbles were seen leaking from it. The rigid proctoscope was then removed. One final inspection was made around the abdominal cavity and no other significant abnormalities were noted. We then changed over to the closing tray with new gowns and gloves along with new drapes and instruments. The posterior fascia of the colostomy site was then reapproximated using 0 Vicryl simple interrupted sutures. The midline fascia of the incision was then reapproximated using 0 PDS running absorbable suture starting from each end and meeting in the middle. Fascia of the colostomy site was then reapproximated using 0 PDS [id number]-[id number] suture. 3-0 Vicryl simple interrupted sutures were placed in Merry's fascia the colostomy site and then the skin of both incisions was reapproximated using a skin stapler. Telfa, 4 x 4 gauze, and Medipore tape were then applied. The patient was then awakened from anesthesia, extubated, and transferred to recovery. Estimated Blood Loss 250 Pathology Yes (Small bowel, descending colostomy, rectal stump) Complications No immediate complications Condition Stable Disposition Floor [facility] Billing Surgery - Charge Forward: Surgery Billing
--- NOTE | 2025-10-15 13:48 | SUR.PHASEI ---
SPOKE WITH DAUGHTER, UPDATE GIVEN INFORMED PT REAIMS SLEEPY. DAUGHTER STATES PT DID NOT SLEEP WELL LAST NIGHT AND WAS UP EARLY, PT WAKENS TO NAME BEING CALLED. ATTEMPTS TO ANSWER QUESTIONS BEFORE DOZING BACK TO SLEEP.
--- NOTE | 2025-10-15 18:21 | PC.NURSE ---
Asked to lay eyes on the patient until the RN Mary could make it to the room. Notified Mary ESPINOSA that the patients temp was lower but had come up some since this nurse was in the room. Patient's temp was 98.2 when this nurse left the room. Also notified Mary ESPINOSA that the patient was shaking slightly at this time. Patient is nonverbal at this time. Mary ESPINOSA updated on all that this nurse observed while checking in with the patient and aid Ivette.
[2025-10-15] MEDS: LACTATED RINGERS 1,000 ML 100 ML IV CONT (18:33)
[2025-10-15] MEDS: ceFAZolin 1 GM in SODIUM CHLORIDE 0.9% IV 50 ML 100 ML IVPB (18:34)
--- NOTE | 2025-10-15 23:00 | PM.IMCN2 ---
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 Patient has developed tachycardia postoperatively in appears intervascular volume depleted at the time of my evaluation. I did give the patient 1 L fluid bolus with some improvement in her tachycardia and a 2 L has been ordered over the course of 2 hours. Re-evaluation of vital signs at the end of my shift demonstrates improvement in heart rate down to the 110 range. The patient's blood pressures have also improved supporting adequate response to IV fluid administration. Will transition back to maintenance fluids at the end of 2nd bolus. Will monitor strict I&O's. Will hold the patient's home amlodipine. Antibiotic and pain management per primary service. Nursing staff reports that the patient has not yet even tried to take a drink of water. If patient is not able to tolerate p.o. medications in the morning we may need to transition the patient to IV Keppra until she is able to take oral medications. The patient is not participating in review of systems or following commands but is awake. I cannot tell if she may be a acutely altered due to postoperative sedation or if there is a behavioral component. Will try to resume the patient's home intake to present and monitor. Eliquis is on hold in the acute postoperative interval. Although if the patient is only on Eliquis due to her prior DVT associated with PICC line then she theoretically should of RD completed therapy for acute DVT. Given the patient's history of prior subdural hematoma and high fall risk even if there is an additional cause for Eliquis administration we may need to consider not resuming. MEDICAL DECISION MAKING NARRATIVE -Spoke with the ED provider in detail regarding patient's evaluation, workup and management -Patient seen and examined at bedside -Collaborated with patient's nurse at the bedside in detail and addressed all concerns -Labs, electrolytes, radiology, investigations and test results personally reviewed and interpreted unless otherwise specified -ED/Consult/Nursing/Ancilliary notes on the chart reviewed and appreciated -applicable past medical records and labs were reviewed and unless stated otherwise. -Spoke with patient at bedside and diagnosis, plan of care was discussed and questions answered. Prior Studies I have reviewed the following patient records and this information was taken into consideration when formulating the assessment and plan.: previous labs, previous ER visits, previous hospitalizations and previous clinic visits HPI Date of Consult Consult date: 10/16/25 Requesting Physician: Antonio Coley DO Primary Care Provider: Julio Manriquez MD Consult Narrative Narrative: Deedee Duran is a 75 year old female with a complex past medical history including subdural and subarachnoid hemorrhage, migraines, chronic tremor, essential hypertension, chronic kidney disease, dysphagia, crowded stenosis, prior cervical spine surgery, and prolonged complicated hospitalization 03/26/2025 through 04/27/2025 due to sepsis from perforated diverticulitis with abscess requiring is exploratory laparotomy with sigmoidectomy with end descending colostomy and associated respiratory failure requiring brief intubation who was brought to the hospital today for planned ostomy takedown. She was discharged to a senior care facility where she has remained since that time. Patient had Lauren procedure in March due to perforated sigmoid diverticulitis with large abscess. Since that time patient has struggled with the ostomy appliance and does not want to live the rest for life with an so after discussion of risks benefits she opted for ostomy takedown. Preop evaluation with a contrast and contrast enema that demonstrated evidence of an entero-rectal fistula for which the patient was aware she may require small-bowel resection. This afternoon the patient underwent open takedown of the colostomy with partial colectomy and colorectal anastomosis with associated ileal resection and [id number] anastomosis.. According to the operative note patient did have some adhesions of the cecum and ileum down into the pelvis. There is a small abscess between the areas of adhesions and the rectal stump. Fistula was definitively identified involving loop of the ileum and attached to the anterior surface of the rectum distal to the staple line. There was have a scarring to the rectal stump ever required additional 4 cm resection of rectum to identify healthy tissue. Additional 4-5 cm of descending colon was also resected. There was no evidence of leak after reanastomosis. Patient has proximally 250 mL of estimated blood loss. According to the anesthesia record patient received 2 g of Ancef and 500 mg of Flagyl preoperatively. She received dexamethasone, famotidine and required no pressors during procedure. It does not appear that she received additional IV fluids intraoperatively. She was extubated postoperatively and is maintaining oxygen saturations on room air and blood pressures and pulse were stable and normal. However at the time of my evaluation I found the patient to be tachycardic with heart rates in the 120s to 130s. She was having intermittent irregular beats. I ordered a stat EKG which demonstrated sinus rhythm with premature ventricular contractions. Her T-max was 99.7?. She was in no overt distress. Her blood pressures were in the 90s to low 100 systolic. She had only had 75 mL of urine output since surgery. The patient had not received any additional fluids while in the OR. Her cap refill was 3-4 second. Her eyes were mildly sunken on exam. I ordered 1 L fluid bolus which brought the patient's heart rate down into the 120s. A 2nd bolus was given of the course of 2 hours and at the end of my shift the patient's heart rate had come down into the 110 range. Blood pressures have improved up to 125/56. The patient is nonverbal at the time of my evaluation is not participating in the history process. Subsequently all information was obtained from review of past medical records, nursing report and review external records. Review of Systems Review of Systems: Unobtainable due to patient's mentation. [facility] Past Medical History Medical History (Updated 10/16/25 @ 08:44 by Stephanie Larkin DO) Chronic kidney disease Hyperlipidemia DVT (deep venous thrombosis) Due to PICC line 03/2025 Seizure disorder Perforation bowel (03/28/25) C2 cervical fracture Dens fracture CAD (coronary artery disease) Coarse tremors Subdural hemorrhage Subarachnoid hemorrhage Migraine Hypertension Surgical History Surgical History (Updated 10/15/25 @ 23:41 by Stephnaie Larkin DO) Status post colostomy takedown Status post insertion of percutaneous endoscopic gastrostomy (PEG) tube Initially placed 04/22/2025 due to dysphagia with acute illness but subsequently removed 08/13/2025 History of craniotomy Evidence of postoperative changes of left frontal portion of the brain and skull likely associated with decompression/evacuation from prior subdural hematoma/subarachnoid hemorrhage History of cervical spinal arthrodesis C5-C6 History of colon resection Exploratory laparotomy Sigmoid colon resection with end descending colostomy Ileal resection with [id number] ileal anastomosis 03/28/25 Family History Family History Mother Hypertension Spinal cord cancer Sibling Colon cancer Hypertension Other Breast cancer Social History Social History (Updated 10/16/25 @ 22:18 by Stephanie Larkin DO) Social History: Code status: Full code Smoking packs per day: 0.5 Smoking cigarettes per day: 10.0 Years smoked: 20 Smoking pack-years: 10.00 Smoking status: Former smoker Second hand tobacco smoke exposure: No Alcohol intake: never Substance use: never Living arrangements: with family Spiritual care concerns: No Meds Home Medications and Allergies Home Medications ?Medication ?Instructions ?Recorded ?Confirmed ?Type amlodipine 10 mg tablet 10 mg PO DAILY 03/10/25 10/15/25 History aspirin 81 mg chewable tablet 81 mg PO DAILY 03/10/25 10/15/25 History docusate sodium 100 mg capsule 100 mg PO BID 03/10/25 09/24/25 History polyethylene glycol 3350 17 17 g PO DAILY 03/10/25 09/24/25 History gram/dose oral powder (ClearLax) potassium chloride 10 mEq 10 meq PO DAILY 03/10/25 09/24/25 History capsule,extended release primidone 250 mg tablet 250 mg PO QID 03/10/25 10/15/25 History topiramate 25 mg tablet (Topamax) 25 mg PO HS 03/10/25 09/24/25 History acetaminophen 500 mg capsule 1,000 mg PO Q6H PRN fever or pain 03/25/25 09/24/25 History apixaban 5 mg tablet (Eliquis) 5 mg PO Q12HR #60 tabs 04/27/25 10/15/25 Rx levetiracetam 250 mg tablet 1,500 mg (6 x 250 mg) PO BIDWM #60 04/27/25 10/15/25 Rx (Keppra) tabs oxycodone 5 mg tablet 5 mg PO Q8H PRN pain #10 tabs 06/22/25 09/24/25 Rx oxycodone 5 mg tablet 5 mg PO Q8H PRN pain #10 tabs 06/22/25 09/30/25 Rx ciprofloxacin HCl 500 mg tablet 500 mg PO .COMPLEX #1 tablet 09/15/25 09/24/25 Rx metronidazole 500 mg tablet 500 mg PO .COMPLEX #3 tabs 09/15/25 10/15/25 Rx aspirin 81 mg tablet,delayed 81 mg PO DAILY 09/24/25 10/15/25 History release (Adult Low Dose Aspirin) escitalopram oxalate 15 mg capsule 15 mg PO DAILY 09/24/25 10/15/25 History polyethylene glycol 3350 17 17 g PO DAILY 09/24/25 09/24/25 History gram/dose oral powder (Miralax) Allergies Allergy/AdvReac Type Severity Reaction Status Date / Time morphine Allergy Unknown RASH, Verified 10/15/25 14:36 DISORIENTATION Vital Signs Vital Signs - 24 hr 10/15/25 08:15 10/15/25 11:44 10/15/25 12:00 Temperature 97.2 F L 97.4 F L Pulse Rate 69 72 72 Respiratory Rate 16 19 14 Blood Pressure 117/64 141/63 H 141/72 H Pulse Oximetry 100 100 100 Oxygen Delivery Room Air Simple Face Mask Simple Face Mask Oxygen Flow Rate 8 8 10/15/25 12:15 10/15/25 12:27 10/15/25 12:30 Temperature Pulse Rate 69 77 Respiratory Rate 14 14 Blood Pressure 136/70 151/71 H Pulse Oximetry 100 100 100 Oxygen Delivery Simple Face Mask Room Air Room Air Oxygen Flow Rate 8 10/15/25 12:45 10/15/25 13:00 10/15/25 13:15 Temperature Pulse Rate 77 81 83 Respiratory Rate 14 14 14 Blood Pressure 131/69 137/77 139/71 Pulse Oximetry 98 98 98 Oxygen Delivery Room Air Room Air Room Air Oxygen Flow Rate 10/15/25 13:30 10/15/25 13:45 10/15/25 14:00 Temperature Pulse Rate 88 86 86 Respiratory Rate 13 16 16 Blood Pressure 133/72 141/72 H 132/81 Pulse Oximetry 100 97 100 Oxygen Delivery Room Air Room Air Room Air Oxygen Flow Rate 10/15/25 14:15 10/15/25 14:30 10/15/25 15:00 Temperature Pulse Rate 89 87 55 L Respiratory Rate Blood Pressure 137/67 121/61 132/63 Pulse Oximetry 99 100 100 Oxygen Delivery Room Air Room Air Room Air Oxygen Flow Rate 10/15/25 16:00 10/15/25 17:30 10/15/25 18:00 Temperature 98.4 F Pulse Rate 77 114 H Respiratory Rate Blood Pressure 113/56 L 141/71 H Pulse Oximetry 100 100 Oxygen Delivery Room Air Room Air Oxygen Flow Rate 10/15/25 20:00 10/15/25 20:07 Temperature 99.7 F H Pulse Rate 114 H 80 Respiratory Rate 16 16 Blood Pressure 122/68 Pulse Oximetry 100 97 Oxygen Delivery Room Air Oxygen Flow Rate Exam Narrative: Weight 77.3 kg BMI 26.7 Const: Other: No acute distress, sitting upright in bed, thin body habitus HENMT: Other: Unable to evaluate mucous membranes as the patient keeps her jaw clenched tightly closed, positive conjunctival pallor, head is normocephalic atraumatic Eyes: Other: Pupils are equal, positive conjunctival pallor, patient is not awake and not participating with evaluation Neck: Other: No JVD, no lymphadenopathy Resp: Other: Clear to auscultation bilaterally, no increased work of breathing Cardio: Other: Patient was tachycardic with occasional irregular beats,, 2+ bilateral radial pedal pulses, no JVD GI: Other: Postoperative dressings are in place in her clean dry and intact. Absent bowel sounds at the time of my evaluation abdomen is generally tender as to be expected given surgical procedure : Other: Post catheter in place with about 250 mL of urine Skin: Other: 4-5 second cap refill, pallor of the nail beds Neuro: Other: Patient awakes to verbal stimuli but does not communicate, she will not cooperate with following commands but does pick upper left hand Extrem: Other: No clubbing, cyanosis or edema Psych: Other: Flat affect, not participating in evaluation Results Labs 10/16/25 05:44 10/16/25 05:44 Labs: Laboratory Tests 10/15/25 10/16/25 07:16 05:44 WBC 10.3 H RBC 3.35 L Hgb 10.2 L Hct 32.0 L MCV 95.5 MCH 30.4 MCHC 31.9 L RDW 15.1 H Plt Count 171 MPV 10.8 H Sodium 136 L Potassium 3.9 Chloride 108 H Carbon Dioxide 24 Anion Gap 4 BUN 20 H Creatinine 0.81 Estim Creat Clear Calc 59 Estimated GFR > 60 Glucose 121 H Calcium 8.5 Blood Type A Positive Antibody Screen Negative Quality VTE Prophylaxis VTE prophylaxis: pharmacologic ordered (Lovenox 40 mg subQ daily.) Hospitalist [facility] Advance Care Plan I have confirmed that the patient's Advanced Care Plan is present, code status is documented, or surrogate decision maker is listed in patient medical record.: Yes Medication Reconciliation I have utilized all available resources to obtain, update and review the patients current medications (includes all prescriptions, OTC, herbals, cannabis, and nutritional supplements).: Yes
[2025-10-16] VITALS (11 sets, daily range): BP systolic 91–132; BP diastolic 49–83; PULSE 105–133; RESP 14–20; TEMP 36.2–37.3; O2SAT 95–100
--- NOTE | 2025-10-16 00:35 | ECG_ITS ---
Test Date: 2025-10-16 00:52:41 Measurements Intervals [place] Rate: 125 P: 81 SC: 144 QRS: 21 QRSD: 89 T: 150 QT: 300 QTc: 433 Interpretive Statements SINUS TACHYCARDIA LEFT VENTRICULAR HYPERTROPHY AND ST-T CHANGE BORDERLINE ST-T WAVE ABNORMALITY- ANTEOLAT/INF LEADS ABNORMAL ECG Compared to ECG 04/29/2025 23:32:07 HEART RATE HAS INCREASED Electronically Signed On 10-16-2025 06:18:15 POLICEMAN by Piotr English D.O.
[2025-10-16] MEDS: ceFAZolin 1 GM in SODIUM CHLORIDE 0.9% IV 50 ML 100 ML IVPB (01:36)
[2025-10-16] MEDS: LACTATED RINGERS 1,000 ML 999 ML IV CONT (05:30)
[2025-10-16] MEDS: LACTATED RINGERS 1,000 ML 500 ML IV CONT (06:32)
[2025-10-16 06:38] LABS: Hematocrit 32.0 % (37.0-47.0); Hemoglobin 10.2 g/dL (12.0-15.0); Mean Corpuscular HGB Conc 31.9 g/dl (32-36); Mean Corpuscular Hemoglobin 30.4 pg (26-34); Mean Corpuscular Volume 95.5 fl (80-100); Platelet Count Result 171 k/mm3 (150-375); Red Blood Count 3.35 M/mm3 (4.2-5.4); White Blood Count 10.3 K/mm3 (4.5-10.0)
[2025-10-16 07:02] LABS: Anion Gap 4 mmol/L (4-12); Blood Urea Nitrogen 20 mg/dL (7-17); Calcium 8.5 mg/dL (8.4-10.2); Carbon Dioxide 24 mmol/L (22-30); Chloride 108 mmol/L (98-107); Estimated CRCL calculation 59 ml/min; Estimated Glomerular Filt Rate > 60; Glucose 121 mg/dL (65-110); Potassium 3.9 mmol/L (3.4-5.0); Sodium 136 mmol/L (137-145)
[2025-10-16] MEDS: LACTATED RINGERS 1,000 ML 100 ML IV CONT ×3 (09:13→21:02)
[2025-10-16] MEDS: ENOXAPARIN 40 MG/0.4 ML SYRINGE SUB-Q (09:14)
[2025-10-16] MEDS: levETIRAcetam 1500MG/NACL100ML 1,500 MG/100 ML BAG 400 MG IVPB ×2 (10:30→21:09)
--- NOTE | 2025-10-16 10:53 | PCPTNOTE ---
attempted PT eval, pt unable to answer or respond to any questions, when asked to wiggle her fingers/toes but was unable to, she did make eye contact but was unable to communicate or demonstrate understanding, will follow as pt is appropriate
--- NOTE | 2025-10-16 11:47 | PCSTNOTE ---
10/16 11:30 BSE attempted patient unable to respodn or follow directives. Re-attempt later time.
--- NOTE | 2025-10-16 12:08 | P.PNGS_ITS ---
Progress Note: A&P Assessment and Plan (1) Status post colostomy takedown: Code(s): Z98.890 - Other specified postprocedural states Status: Acute Assessment and Plan: POD1 s/p open takedown descending colostomy with partial colectomy and colorectal anastomosis, ileal resection. Patient tachycardic this morning. Nonverbal, limiting exam. WBC 10.3, likely reactive. Currently NPO. Bedside swallow study attempted, but patient was unable to respond or follow directions. Continue to encourage IS and OOB if patient is able. (2) care home current use of anticoagulant: Code(s): Z79.01 - care home (current) use of anticoagulants Status: Acute Plan Discussed patient's case and plan of care with Dr. Coley. Subjective Subjective Date/Time Seen: 10/16/25 12:08 Post Op day: 1 ( open takedown of descending colostomy with partial colectomy and colorectal anastomosis ileal resection with [id number] anastomosis) Patient reports: no new complaints and afebrile Interval history: Patient nonverbal this morning and unable to express any concerns. Tried to call patient's POA to see if this was baseline, but did not get an answer. Patient tachycardic this morning. Exam Const: General: comfortable and no acute distress Resp: Effort & Inspection: normal respiratory effort Cardio: Rate: tachycardic GI: Inspection: non-distended GI Palp: Yes Soft to palpation, Yes Tenderness to palpation present (GI) and No Guarding due to palpation present (GI) Other: Dressing is clean and dry with no visible saturation Skin: General skin exam: normal color and no rashes or lesions noted Extrem: General: normal to inspection Psych: Mental Status: mental status grossly normal Objective Data Vital Signs Vital Signs: Vital Signs - 24 hr 10/15/25 12:15 10/15/25 12:27 10/15/25 12:30 Temperature Pulse Rate 69 77 Respiratory Rate 14 14 Blood Pressure 136/70 151/71 H Pulse Oximetry 100 100 100 Oxygen Delivery Simple Face Mask Room Air Room Air Oxygen Flow Rate 8 10/15/25 12:45 10/15/25 13:00 10/15/25 13:15 Temperature Pulse Rate 77 81 83 Respiratory Rate 14 14 14 Blood Pressure 131/69 137/77 139/71 Pulse Oximetry 98 98 98 Oxygen Delivery Room Air Room Air Room Air Oxygen Flow Rate 10/15/25 13:30 10/15/25 13:45 10/15/25 14:00 Temperature Pulse Rate 88 86 86 Respiratory Rate 13 16 16 Blood Pressure 133/72 141/72 H 132/81 Pulse Oximetry 100 97 100 Oxygen Delivery Room Air Room Air Room Air Oxygen Flow Rate 10/15/25 14:15 10/15/25 14:30 10/15/25 15:00 Temperature Pulse Rate 89 87 55 L Respiratory Rate Blood Pressure 137/67 121/61 132/63 Pulse Oximetry 99 100 100 Oxygen Delivery Room Air Room Air Room Air Oxygen Flow Rate 10/15/25 16:00 10/15/25 17:30 10/15/25 18:00 Temperature 98.4 F Pulse Rate 77 114 H Respiratory Rate Blood Pressure 113/56 L 141/71 H Pulse Oximetry 100 100 Oxygen Delivery Room Air Room Air Oxygen Flow Rate 10/15/25 20:00 10/15/25 20:07 10/16/25 00:07 Temperature 99.7 F H 97.1 F L Pulse Rate 114 H 80 133 H Respiratory Rate 16 16 18 Blood Pressure 122/68 91/49 L Pulse Oximetry 100 97 100 Oxygen Delivery Room Air Oxygen Flow Rate 10/16/25 04:00 10/16/25 04:07 10/16/25 07:53 Temperature 98.4 F 98.3 F Pulse Rate 129 H 123 H 111 H Respiratory Rate 16 20 Blood Pressure 105/83 125/54 L Pulse Oximetry 100 100 Oxygen Delivery Oxygen Flow Rate 10/16/25 08:00 10/16/25 08:00 Temperature Pulse Rate 105 H 111 H Respiratory Rate 20 Blood Pressure Pulse Oximetry 100 Oxygen Delivery Room Air Oxygen Flow Rate Intake/Output Intake/Output: Intake & Output 10/13/25 10/14/25 10/15/25 10/16/25 23:59 23:59 23:59 23:59 Intake Total 200 2150 Output Total 125 300 Balance 75 1850 Meds/Results Medications: Active Medications Generic Name Dose Route Start Last Admin Trade Name Freq PRN Reason Stop Dose Admin Acetaminophen 650 mg 10/15/25 18:00 10/16/25 05:38 Acetaminophen 325 Mg Tablet PO Not Given Q6HR JAYDEN Alvimopan 12 mg 10/16/25 21:00 Alvimopan 12 Mg Capsule PO 10/23/25 20:59 Q12HR [facility] Amlodipine Besylate 10 mg 10/16/25 09:00 Amlodipine Besylate 10 Mg Tablet PO On Hold: 10/16/25 09:00 DAILY [facility] Aspirin 81 mg 10/16/25 09:00 Aspirin 81 Mg Enteric Tablet PO DAILY [facility] Enoxaparin Sodium 40 mg 10/16/25 09:00 10/16/25 09:14 Enoxaparin 40 Mg/0.4 Ml Syringe SUB-Q 40 mg DAILY [facility] Administration Escitalopram Oxalate 10 mg 10/16/25 09:00 Escitalopram Oxalate 10 Mg Tablet PO DAILY [facility] Escitalopram Oxalate 5 mg 10/16/25 09:00 Escitalopram Oxalate 5 Mg Tablet PO DAILY [facility] Hydromorphone HCl 0.5 mg 10/15/25 17:04 Hydromorphone Hcl Inj (*Crx) 1 Mg/Ml Syr IV PUSH Q2H PRN Breakthrough Pain Rated 4-6 or NPO Lactated Ringer's 1,000 mls @ 100 mls/hr 10/15/25 17:04 10/16/25 09:13 Lr - Lactated Ringers Iv IV CONT 100 mls/hr .Q10H [facility] Administration Levetiracetam 1,500 mg in 100 mls @ 400 mls/hr 10/16/25 21:00 Keppra Iv IVPB Q12HR [facility] Naloxone HCl 0.1 mg 10/15/25 17:04 Naloxone Hcl 0.4 Mg/Ml Vial IV PUSH Q2M PRN Opiate Reversal Ondansetron HCl 4 mg 10/15/25 17:04 Ondansetron Inj 4 Mg/2 Ml Vial IV PUSH Q4H PRN Nausea And Vomiting Oxycodone HCl 2.5 mg 10/15/25 17:04 Oxycodone Hcl (*Crx) 2.5 Mg Tab Ir PO Q4H PRN Pain Rated 4-6 Oxycodone HCl 5 mg 10/15/25 17:04 Oxycodone Hcl (*Crx) 5 Mg Tab Ir PO Q4H PRN Pain Rated 7-10 Polyethylene Glycol 17 gm 10/16/25 09:00 Polyethylene Glycol 3350 17 Gm Powd.Pack PO DAILY [facility] Potassium Chloride 10 meq 10/16/25 09:00 Potassium Chloride 10 Meq Er Tablet PO DAILY [facility] Primidone 250 mg 10/15/25 17:10 10/15/25 23:05 Primidone 250 Mg Tablet PO Not Given QID JAYDEN Topiramate 25 mg 10/15/25 21:00 10/15/25 23:05 Topiramate 25 Mg Tablet PO Not Given HS [facility] Labs Labs: Laboratory Results - last 24 hr 10/16/25 05:44 WBC 10.3 H RBC 3.35 L Hgb 10.2 L Hct 32.0 L MCV 95.5 MCH 30.4 MCHC 31.9 L RDW 15.1 H Plt Count 171 MPV 10.8 H Sodium 136 L Potassium 3.9 Chloride 108 H Carbon Dioxide 24 Anion Gap 4 BUN 20 H Creatinine 0.81 Estim Creat Clear Calc 59 Estimated GFR > 60 Glucose 121 H Calcium 8.5
[2025-10-16] MEDS: SODIUM CHLORIDE 0.9% IV 1,000 ML 999 ML IV CONT (13:35)
--- NOTE | 2025-10-16 13:56 | PM.IMPN2 ---
Assessment and Plan Assessment and Plan (1) Status post colostomy takedown: Code(s): Z98.890 - Other specified postprocedural states Status: Acute Assessment and Plan: status post ostomy takedown per general surgery patient not attempting to drink, IV fluids pain control PT/OT once patient is participating in care ST consult as patient is not following commands or speaking, she is alert patient has done this prior with surgery per records review and per family AM labs (2) Sinus tachycardia: Code(s): R00.0 - Tachycardia, unspecified Status: Acute Assessment and Plan: s/p IV fluid boluses, continue maintenance IV fluids unclear if due to pain as patient will not talk and has not responded to pain during exam pain medication per nursing if patient appears uncomfortable telemetry monitoring (3) Hypertension: Qualifiers: Hypertension type: primary hypertension Qualified Code(s): I10 - Essential (primary) hypertension Code(s): I10 - Essential (primary) hypertension Status: Acute Assessment and Plan: hold home amlodipine until patient taking oral intake blood pressures stable monitor and add PRN medication if needed (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: Code(s): Z79.01 - superintendent terminal (current) use of anticoagulants Status: Acute Assessment and Plan: patient's Eliquis on hold since preoperatively surgery will decide when patient is safe to resume anticoagulation (5) Depression: Qualifiers: Active/Remission status: remission status unspecified Depression Type: major depressive disorder Major depression recurrence: unspecified whether recurrent Qualified Code(s): F32.9 - Major depressive disorder, single episode, unspecified Code(s): F32.A - Depression, unspecified Status: Acute Assessment and Plan: restart escitalopram (6) Seizure disorder: Code(s): G40.909 - Epilepsy, unspecified, not intractable, without status epilepticus Status: Acute Assessment and Plan: seizure precautions switch PO keppra to IV until patient is reliably taking oral medications Medical Record Review I have reviewed the following patient records and this information was taken into consideration when formulating the assessment and plan.: previous labs, previous ER visits and previous hospitalizations Consultations Consultations: I have discussed the care of this pt with the consulting providers. Subjective Date/time seen: 10/16/25 13:56 Interval history: Patient seen for a follow up visit. Patient lying in bed, does not appear to be in distress. Patient does not answer any questions or follow commands. Patient does track with her eyes. Patient will not follow commands so patient made NPO and speech therapy consulted for bedside swallow. Patient's Keppra changed to IV until patient is taking medications reliably by mouth. General surgery is following patient. Labs reviewed, wbc mildly elevated, continue to monitor. Per nursing and prior notes patient has been not responsive after previous surgeries. Review of Systems Review of Systems: ROS unobtainable: Yes unobtainable due to mental status Exam Const: General: comfortable and no acute distress Other: alert, will not answer questions or follow commands, will track with her eyes HENMT: Face/Nose/Sinus: Normal nares present Mouth: Yes moist mucous membranes Eyes: General: appearance normal, both eyes and all related structures Sclera: sclerae normal Pupils: Equal, round and reactive pupils present Neck: Neck: supple Resp: Effort & Inspection: normal respiratory effort Auscultation: clear to auscultation bilaterally Cardio: Rate: tachycardic Rhythm: regular rhythm GI: GI Palp: Yes Soft to palpation Other: hypoactive bowel sounds, midline surgical incision with noah, ostomy closure site with noah Urinary Catheter: Urinary Catheter: patent and draining and urine clear Skin: General skin exam: normal color and no rashes or lesions noted Neuro: Other: alert, does not follow commands or speak, will track with her eyes Extrem: General: normal to inspection Objective Data Vital Signs Vital Signs: Vital Signs - 24 hr 10/15/25 14:00 10/15/25 14:15 10/15/25 14:30 Temperature Pulse Rate 86 89 87 Respiratory Rate 16 Blood Pressure 132/81 137/67 121/61 Pulse Oximetry 100 99 100 Oxygen Delivery Room Air Room Air Room Air 10/15/25 15:00 10/15/25 16:00 10/15/25 17:30 Temperature 98.4 F Pulse Rate 55 L 77 114 H Respiratory Rate Blood Pressure 132/63 113/56 L 141/71 H Pulse Oximetry 100 100 100 Oxygen Delivery Room Air Room Air 10/15/25 18:00 10/15/25 20:00 10/15/25 20:07 Temperature 99.7 F H Pulse Rate 114 H 80 Respiratory Rate 16 16 Blood Pressure 122/68 Pulse Oximetry 100 97 Oxygen Delivery Room Air Room Air 10/16/25 00:07 10/16/25 04:00 10/16/25 04:07 Temperature 97.1 F L 98.4 F Pulse Rate 133 H 129 H 123 H Respiratory Rate 18 16 Blood Pressure 91/49 L 105/83 Pulse Oximetry 100 100 Oxygen Delivery 10/16/25 07:53 10/16/25 08:00 10/16/25 08:00 Temperature 98.3 F Pulse Rate 111 H 105 H 111 H Respiratory Rate 20 20 Blood Pressure 125/54 L Pulse Oximetry 100 100 Oxygen Delivery Room Air 10/16/25 12:07 Temperature 98.9 F Pulse Rate 105 H Respiratory Rate 14 Blood Pressure 124/62 Pulse Oximetry 100 Oxygen Delivery Intake/Output Intake/Output: Intake & Output 10/13/25 10/14/25 10/15/25 10/16/25 23:59 23:59 23:59 23:59 Intake Total 200 2150 Output Total 125 300 Balance 75 1850 Meds/Results Medications: Active Medications Generic Name Dose Route Start Last Admin Trade Name Freq PRN Reason Stop Dose Admin Acetaminophen 650 mg 10/15/25 18:00 10/16/25 13:25 Acetaminophen 325 Mg Tablet PO Not Given Q6HR [facility] Alvimopan 12 mg 10/16/25 21:00 Alvimopan 12 Mg Capsule PO 10/23/25 20:59 Q12HR [facility] Amlodipine Besylate 10 mg 10/16/25 09:00 Amlodipine Besylate 10 Mg Tablet PO On Hold: 10/16/25 09:00 DAILY JAYDEN Aspirin 81 mg 10/16/25 09:00 10/16/25 13:41 Aspirin 81 Mg Enteric Tablet PO Not Given DAILY [facility] Enoxaparin Sodium 40 mg 10/16/25 09:00 10/16/25 09:14 Enoxaparin 40 Mg/0.4 Ml Syringe SUB-Q 40 mg DAILY [facility] Administration Escitalopram Oxalate 10 mg 10/16/25 09:00 10/16/25 13:41 Escitalopram Oxalate 10 Mg Tablet PO Not Given DAILY [facility] Escitalopram Oxalate 5 mg 10/16/25 09:00 10/16/25 13:41 Escitalopram Oxalate 5 Mg Tablet PO Not Given DAILY [facility] Hydromorphone HCl 0.5 mg 10/15/25 17:04 Hydromorphone Hcl Inj (*Crx) 1 Mg/Ml Syr IV PUSH Q2H PRN Breakthrough Pain Rated 4-6 or NPO Lactated Ringer's 1,000 mls @ 100 mls/hr 10/15/25 17:04 10/16/25 09:13 Lr - Lactated Ringers Iv IV CONT 100 mls/hr .Q10H JAYDEN Administration Levetiracetam 1,500 mg in 100 mls @ 400 mls/hr 10/16/25 21:00 Keppra Iv IVPB Q12HR JAYDEN Naloxone HCl 0.1 mg 10/15/25 17:04 Naloxone Hcl 0.4 Mg/Ml Vial IV PUSH Q2M PRN Opiate Reversal Ondansetron HCl 4 mg 10/15/25 17:04 Ondansetron Inj 4 Mg/2 Ml Vial IV PUSH Q4H PRN Nausea And Vomiting Oxycodone HCl 2.5 mg 10/15/25 17:04 Oxycodone Hcl (*Crx) 2.5 Mg Tab Ir PO Q4H PRN Pain Rated 4-6 Oxycodone HCl 5 mg 10/15/25 17:04 Oxycodone Hcl (*Crx) 5 Mg Tab Ir PO Q4H PRN Pain Rated 7-10 Polyethylene Glycol 17 gm 10/16/25 09:00 10/16/25 13:41 Polyethylene Glycol 3350 17 Gm Powd.Pack PO Not Given DAILY [facility] Potassium Chloride 10 meq 10/16/25 09:00 10/16/25 13:25 Potassium Chloride 10 Meq Er Tablet PO Not Given DAILY JAYDEN Primidone 250 mg 10/15/25 17:10 10/16/25 13:41 Primidone 250 Mg Tablet PO Not Given QID JAYDEN Topiramate 25 mg 10/15/25 21:00 10/15/25 23:05 Topiramate 25 Mg Tablet PO Not Given HS [facility] Labs Labs: Laboratory Results - last 24 hr 10/16/25 05:44 WBC 10.3 H RBC 3.35 L Hgb 10.2 L Hct 32.0 L MCV 95.5 MCH 30.4 MCHC 31.9 L RDW 15.1 H Plt Count 171 MPV 10.8 H Sodium 136 L Potassium 3.9 Chloride 108 H Carbon Dioxide 24 Anion Gap 4 BUN 20 H Creatinine 0.81 Estim Creat Clear Calc 59 Estimated GFR > 60 Glucose 121 H Calcium 8.5 Quality VTE Prophylaxis VTE prophylaxis: pharmacologic ordered
--- NOTE | 2025-10-16 14:20 | PCOTNOTE ---
Patient is unable to follow simple directives. RN aware and requests evaluation tomorrow. Will continue to follow.
[2025-10-16] MEDS: HYDROmorphone HCL INJ (*CRX) 1 MG/ML SYR 0.5 MG IV PUSH (16:24)
--- NOTE | 2025-10-16 21:29 | ECG_ITS ---
Test Date: 2025-10-17 07:34:03 Measurements Intervals Ernest Rate: 105 P: 69 NH: 147 QRS: 21 QRSD: 98 T: 86 QT: 353 QTc: 467 Interpretive Statements SINUS TACHYCARDIA WITH VENTRICULAR COUPLET AND FREQUENT VENTRICULAR PREMATURE COMPLEXES LEFT VENTRICULAR HYPERTROPHY WITH ST-T CHANGE ABNORMAL ECG Compared to ECG 10/16/2025 00:52:41 HEART RATE HAS DECREASED Ventricular premature complex(es) now present Electronically Signed On 10-17-2025 07:58:49 CORONER by Piotr English D.O.
[2025-10-17] VITALS (9 sets, daily range): BP systolic 121–140; BP diastolic 52–72; PULSE 51–122; RESP 16–18; TEMP 36.6–37.5; O2SAT 97–100; BMI 11.0
[2025-10-17 06:10] LABS: Hematocrit 27.7 % (37.0-47.0); Hemoglobin 8.9 g/dL (12.0-15.0); Mean Corpuscular HGB Conc 32.1 g/dl (32-36); Mean Corpuscular Hemoglobin 30.3 pg (26-34); Mean Corpuscular Volume 94.2 fl (80-100); Platelet Count Result 155 k/mm3 (150-375); Red Blood Count 2.94 M/mm3 (4.2-5.4); White Blood Count 10.5 K/mm3 (4.5-10.0)
[2025-10-17 06:32] LABS: Anion Gap 2 mmol/L (4-12); Blood Urea Nitrogen 14 mg/dL (7-17); Calcium 8.4 mg/dL (8.4-10.2); Carbon Dioxide 24 mmol/L (22-30); Chloride 110 mmol/L (98-107); Estimated CRCL calculation 65 ml/min; Estimated Glomerular Filt Rate > 60; Glucose 96 mg/dL (65-110); Potassium 3.4 mmol/L (3.4-5.0); Sodium 136 mmol/L (137-145)
[2025-10-17] MEDS: ENOXAPARIN 40 MG/0.4 ML SYRINGE SUB-Q (08:03)
[2025-10-17] MEDS: levETIRAcetam 1500MG/NACL100ML 1,500 MG/100 ML BAG 400 MG IVPB ×2 (08:03→21:01)
[2025-10-17] MEDS: ALVIMOPAN 12 MG CAPSULE PO (08:04)
[2025-10-17] MEDS: ASPIRIN 81 MG ENTERIC TABLET PO (08:04)
[2025-10-17] MEDS: ESCITALOPRAM OXALATE 5 MG TABLET PO (08:04)
[2025-10-17] MEDS: PRIMIDONE 250 MG TABLET PO ×3 (08:04→17:00)
[2025-10-17] MEDS: POTASSIUM CHLORIDE 10 MEQ ER TABLET PO (08:04)
[2025-10-17] MEDS: ESCITALOPRAM OXALATE 10 MG TABLET PO (08:04)
--- NOTE | 2025-10-17 08:52 | PCSTNOTE ---
Please refer to the Bedside Swallow Evaluation in the EMR. Please note, silent aspiration cannot be ruled out at bedside. The patient is a 75 year old female orders received to complete a BSE due to limited responsiveness following surgery. Attempted to complete 10/16/25 however, patient did not arouse or respond for trials. Patient with history of dysphagia. Last seen by speech services within the hospital April 2025. Patient was positioned upright in bed and sternal rub and cold cloth utilized. Patient did open eyes briefly and make sound, although not spoken words. Presented trials limited due to level of alertness. The patient was presented 3cc/tsp thin trials and 3cc/tsp puree applesauce trials. Oral Stage: When presented each trial bolus placed on anterior portion of tongue with verbal cues and prolonged time the patient did eventually transit each trial to her tongue base and complete a swallow response. No oral residual remaining for trials. Pharyngeal stage: Swallow initiation delayed in triggering with reduced laryngeal elevation. However no noted coughing or vocal quality change for each trial. Recommend: 1. Remain NPO 2. Therapeutic trials with ASSOCIATE SALES MANAGER as alertness improves for possible diet advancement. Reviewed results and recommendations with nurse and family
--- NOTE | 2025-10-17 10:30 | PM.IMPN2 ---
Assessment and Plan Assessment and Plan (1) Status post colostomy takedown: Code(s): Z98.890 - Other specified postprocedural states Status: Acute Assessment and Plan: status post ostomy takedown per general surgery patient not attempting to drink, IV fluids pain control PT/OT once patient is participating in care ST consult as patient is not following commands or speaking, she is alert patient has done this prior with surgery per records review and per family wbc slightly elevated, stable since yesterday AM labs (2) Sinus tachycardia: Code(s): R00.0 - Tachycardia, unspecified Status: Acute Assessment and Plan: s/p IV fluid boluses, continue maintenance IV fluids unclear if due to pain as patient will not talk and has not responded to pain during exam pain medication per nursing if patient appears uncomfortable telemetry monitoring (3) Hypertension: Qualifiers: Hypertension type: primary hypertension Qualified Code(s): I10 - Essential (primary) hypertension Code(s): I10 - Essential (primary) hypertension Status: Acute Assessment and Plan: hold home amlodipine until patient taking oral intake blood pressures stable monitor and add PRN medication if needed (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: Code(s): Z79.01 - assisted (current) use of anticoagulants Status: Acute Assessment and Plan: patient's Eliquis on hold since preoperatively surgery will decide when patient is safe to resume anticoagulation (5) Depression: Qualifiers: Depression Type: major depressive disorder Major depression recurrence: unspecified whether recurrent Active/Remission status: remission status unspecified Qualified Code(s): F32.9 - Major depressive disorder, single episode, unspecified Code(s): F32.A - Depression, unspecified Status: Acute Assessment and Plan: restart escitalopram (6) Seizure disorder: Code(s): G40.909 - Epilepsy, unspecified, not intractable, without status epilepticus Status: Acute Assessment and Plan: seizure precautions switch PO keppra to IV until patient is reliably taking oral medications no seizure activity reported Medical Record Review I have reviewed the following patient records and this information was taken into consideration when formulating the assessment and plan.: previous labs, previous ER visits and previous hospitalizations Consultations Consultations: I have discussed the care of this pt with the consulting providers. Subjective Date/time seen: 10/17/25 10:30 Interval history: Patient seen for a follow up visit. Patient lying in bed, does not appear to be in distress. Patient not answering questions or following commands. Patient does look at me when I call her name. Patient was able to take a bite of applesauce with speech therapy today with choking, recommended liquid diet and applesauce with pills as patient tolerates. Continue IV Keppra until patient is following more commands. Patient's labs reviewed and appear stable. Patient remains tachycardic, continues on IV fluids. Discussed patient's care with daughter COSMO and she reports this is how patient was after her last surgery. Review of Systems Review of Systems: ROS unobtainable: Yes unobtainable due to mental status Exam Const: General: comfortable and no acute distress Other: alert, will not answer questions or follow commands, will track with her eyes HENMT: Face/Nose/Sinus: Normal nares present Mouth: Yes moist mucous membranes Eyes: General: appearance normal, both eyes and all related structures Sclera: sclerae normal Pupils: Equal, round and reactive pupils present Neck: Neck: supple Resp: Effort & Inspection: normal respiratory effort Auscultation: clear to auscultation bilaterally Cardio: Rate: tachycardic Rhythm: regular rhythm GI: GI Palp: Yes Soft to palpation Other: hypoactive bowel sounds, midline surgical incision with noah, ostomy closure site with noah Urinary Catheter: Urinary Catheter: patent and draining and urine clear Skin: General skin exam: normal color and no rashes or lesions noted Neuro: Other: alert, does not follow commands or speak, will track with her eyes Extrem: General: normal to inspection Objective Data Vital Signs Vital Signs: Vital Signs - 24 hr 10/16/25 12:00 10/16/25 12:07 10/16/25 16:00 Temperature 98.9 F Pulse Rate 109 H 105 H 111 H Respiratory Rate 14 Blood Pressure 124/62 Pulse Oximetry 100 Oxygen Delivery 10/16/25 16:07 10/16/25 20:00 10/16/25 20:00 Temperature 99.0 F Pulse Rate 116 H 120 H 119 H Respiratory Rate 16 16 Blood Pressure 132/77 Pulse Oximetry 96 95 Oxygen Delivery Room Air 10/16/25 21:26 10/17/25 00:00 10/17/25 04:00 Temperature 99.1 F Pulse Rate 120 H 122 H 113 H Respiratory Rate 16 Blood Pressure 117/72 Pulse Oximetry 95 Oxygen Delivery 10/17/25 05:54 10/17/25 09:00 Temperature 99.5 F Pulse Rate 112 H Respiratory Rate 18 Blood Pressure 121/72 Pulse Oximetry 97 Oxygen Delivery Room Air Intake/Output Intake/Output: Intake & Output 10/14/25 10/15/25 10/16/25 10/17/25 23:59 23:59 23:59 23:59 Intake Total 200 3431.7 0 Output Total 125 750 400 Balance 75 2681.7 -400 Meds/Results Medications: Active Medications Generic Name Dose Route Start Last Admin Trade Name Freq PRN Reason Stop Dose Admin Acetaminophen 650 mg 10/15/25 18:00 10/17/25 05:03 Acetaminophen 325 Mg Tablet PO Not Given Q6HR JAYDEN Alvimopan 12 mg 10/16/25 21:00 10/17/25 08:04 Alvimopan 12 Mg Capsule PO 10/23/25 20:59 12 mg Q12HR JAYDEN Administration Amlodipine Besylate 10 mg 10/16/25 09:00 Amlodipine Besylate 10 Mg Tablet PO On Hold: 10/16/25 09:00 DAILY JAYDEN Aspirin 81 mg 10/16/25 09:00 10/17/25 08:04 Aspirin 81 Mg Enteric Tablet PO 81 mg DAILY JAYDEN Administration Enoxaparin Sodium 40 mg 10/16/25 09:00 10/17/25 08:03 Enoxaparin 40 Mg/0.4 Ml Syringe SUB-Q 40 mg DAILY JAYDEN Administration Escitalopram Oxalate 10 mg 10/16/25 09:00 10/17/25 08:04 Escitalopram Oxalate 10 Mg Tablet PO 10 mg DAILY JAYDEN Administration Escitalopram Oxalate 5 mg 10/16/25 09:00 10/17/25 08:04 Escitalopram Oxalate 5 Mg Tablet PO 5 mg DAILY JAYDEN Administration Hydromorphone HCl 0.5 mg 10/15/25 17:04 10/16/25 16:24 Hydromorphone Hcl Inj (*Crx) 1 Mg/Ml Syr IV PUSH 0.5 mg Q2H PRN Administration Breakthrough Pain Rated 4-6 or NPO Lactated Ringer's 1,000 mls @ 100 mls/hr 10/15/25 17:04 10/16/25 21:02 Lr - Lactated Ringers Iv IV CONT 100 mls/hr .Q10H JAYDEN Administration Levetiracetam 1,500 mg in 100 mls @ 400 mls/hr 10/16/25 21:00 10/17/25 08:03 Keppra Iv IVPB 400 mls/hr Q12HR JAYDEN Administration Naloxone HCl 0.1 mg 10/15/25 17:04 Naloxone Hcl 0.4 Mg/Ml Vial IV PUSH Q2M PRN Opiate Reversal Ondansetron HCl 4 mg 10/15/25 17:04 Ondansetron Inj 4 Mg/2 Ml Vial IV PUSH Q4H PRN Nausea And Vomiting Oxycodone HCl 2.5 mg 10/15/25 17:04 Oxycodone Hcl (*Crx) 2.5 Mg Tab Ir PO Q4H PRN Pain Rated 4-6 Oxycodone HCl 5 mg 10/15/25 17:04 Oxycodone Hcl (*Crx) 5 Mg Tab Ir PO Q4H PRN Pain Rated 7-10 Polyethylene Glycol 17 gm 10/16/25 09:00 10/17/25 09:33 Polyethylene Glycol 3350 17 Gm Powd.Pack PO Not Given DAILY JAYDEN Potassium Chloride 10 meq 10/16/25 09:00 10/17/25 08:04 Potassium Chloride 10 Meq Er Tablet PO 10 meq DAILY JAYDEN Administration Primidone 250 mg 10/15/25 17:10 10/17/25 08:04 Primidone 250 Mg Tablet PO 250 mg QID JAYDEN Administration Topiramate 25 mg 10/15/25 21:00 10/16/25 21:05 Topiramate 25 Mg Tablet PO Not Given HS [facility] Labs Labs: Laboratory Results - last 24 hr 10/17/25 05:24 WBC 10.5 H RBC 2.94 L Hgb 8.9 L Hct 27.7 L MCV 94.2 MCH 30.3 MCHC 32.1 RDW 15.7 H Plt Count 155 MPV 10.6 H Sodium 136 L Potassium 3.4 Chloride 110 H Carbon Dioxide 24 Anion Gap 2 L BUN 14 D Creatinine 0.73 Estim Creat Clear Calc 65 Estimated GFR > 60 Glucose 96 Calcium 8.4 Quality VTE Prophylaxis VTE prophylaxis: pharmacologic ordered
[2025-10-17] MEDS: HYDROmorphone HCL INJ (*CRX) 1 MG/ML SYR 0.5 MG IV PUSH ×3 (11:41→20:58)
[2025-10-17] MEDS: LACTATED RINGERS 1,000 ML 100 ML IV CONT ×2 (11:43→17:03)
--- NOTE | 2025-10-17 11:50 | P.PNGS_ITS ---
Progress Note: A&P Assessment and Plan (1) Status post colostomy takedown: Code(s): Z98.890 - Other specified postprocedural states Status: Acute Assessment and Plan: * white blood count about the same, patient remains tachycardic but is showing signs of bowel function returning. She is still aphasic and not following commands, but this is similar to how she responded to the previous surgery. This could all be postoperative encephalopathy related to anesthesia and the surgery. Somewhat difficult to assess for signs of postoperative complications due to patient's current mental status. Will continue watching white blood count and vital signs and could consider CT abdomen/pelvis if anything is worsening. Continue working with speech therapy and taking full liquids and pills as tolerated. Continue physical therapy. (2) senior care current use of anticoagulant: Code(s): Z79.01 - senior care (current) use of anticoagulants Status: Acute Assessment and Plan: * Will continue Lovenox for DVT prophylaxis but hold off on resuming Eliquis until patient is further out from surgery Subjective Subjective Date/Time Seen: 10/17/25 11:50 Interval history: Patient had a bowel movement. Still not speaking or following commands, but she is tracking with her eyes. Exam GI: Inspection: non-distended and incision ( Intact with noah, minimal bloody drainage) GI Palp: Yes Soft to palpation and Yes Tenderness to palpation present (GI) ( mild tenderness when palpating, but no peritoneal signs) Auscultation: normal bowel sounds Objective Data Vital Signs Vital Signs: Vital Signs - 24 hr 10/16/25 12:00 10/16/25 12:07 10/16/25 16:00 Temperature 98.9 F Pulse Rate 109 H 105 H 111 H Respiratory Rate 14 Blood Pressure 124/62 Pulse Oximetry 100 Oxygen Delivery 10/16/25 16:07 10/16/25 20:00 10/16/25 20:00 Temperature 99.0 F Pulse Rate 116 H 120 H 119 H Respiratory Rate 16 16 Blood Pressure 132/77 Pulse Oximetry 96 95 Oxygen Delivery Room Air 10/16/25 21:26 10/17/25 00:00 10/17/25 04:00 Temperature 99.1 F Pulse Rate 120 H 122 H 113 H Respiratory Rate 16 Blood Pressure 117/72 Pulse Oximetry 95 Oxygen Delivery 10/17/25 05:54 10/17/25 09:00 10/17/25 10:45 Temperature 99.5 F Pulse Rate 112 H Respiratory Rate 18 Blood Pressure 121/72 Pulse Oximetry 97 Oxygen Delivery Room Air Room Air Intake/Output Intake/Output: Intake & Output 10/14/25 10/15/25 10/16/25 10/17/25 23:59 23:59 23:59 23:59 Intake Total 200 3431.7 1000 Output Total 125 750 400 Balance 75 2681.7 600 Meds/Results Medications: Active Medications Generic Name Dose Route Start Last Admin Trade Name Freq PRN Reason Stop Dose Admin Acetaminophen 650 mg 10/15/25 18:00 10/17/25 05:03 Acetaminophen 325 Mg Tablet PO Not Given Q6HR JAYDEN Alvimopan 12 mg 10/16/25 21:00 10/17/25 08:04 Alvimopan 12 Mg Capsule PO 10/23/25 20:59 12 mg Q12HR JAYDEN Administration Amlodipine Besylate 10 mg 10/16/25 09:00 Amlodipine Besylate 10 Mg Tablet PO On Hold: 10/16/25 09:00 DAILY JAYDEN Aspirin 81 mg 10/16/25 09:00 10/17/25 08:04 Aspirin 81 Mg Enteric Tablet PO 81 mg DAILY JAYDEN Administration Enoxaparin Sodium 40 mg 10/16/25 09:00 10/17/25 08:03 Enoxaparin 40 Mg/0.4 Ml Syringe SUB-Q 40 mg DAILY JAYDEN Administration Escitalopram Oxalate 10 mg 10/16/25 09:00 10/17/25 08:04 Escitalopram Oxalate 10 Mg Tablet PO 10 mg DAILY JAYDEN Administration Escitalopram Oxalate 5 mg 10/16/25 09:00 10/17/25 08:04 Escitalopram Oxalate 5 Mg Tablet PO 5 mg DAILY JAYDEN Administration Hydromorphone HCl 0.5 mg 10/15/25 17:04 10/17/25 11:41 Hydromorphone Hcl Inj (*Crx) 1 Mg/Ml Syr IV PUSH 0.5 mg Q2H PRN Administration Breakthrough Pain Rated 4-6 or NPO Lactated Ringer's 1,000 mls @ 100 mls/hr 10/15/25 17:04 10/17/25 11:43 Lr - Lactated Ringers Iv IV CONT 100 mls/hr .Q10H JAYDEN Administration Levetiracetam 1,500 mg in 100 mls @ 400 mls/hr 10/16/25 21:00 10/17/25 08:03 Keppra Iv IVPB 400 mls/hr Q12HR JAYDEN Administration Naloxone HCl 0.1 mg 10/15/25 17:04 Naloxone Hcl 0.4 Mg/Ml Vial IV PUSH Q2M PRN Opiate Reversal Ondansetron HCl 4 mg 10/15/25 17:04 Ondansetron Inj 4 Mg/2 Ml Vial IV PUSH Q4H PRN Nausea And Vomiting Oxycodone HCl 2.5 mg 10/15/25 17:04 Oxycodone Hcl (*Crx) 2.5 Mg Tab Ir PO Q4H PRN Pain Rated 4-6 Oxycodone HCl 5 mg 10/15/25 17:04 Oxycodone Hcl (*Crx) 5 Mg Tab Ir PO Q4H PRN Pain Rated 7-10 Polyethylene Glycol 17 gm 10/16/25 09:00 10/17/25 09:33 Polyethylene Glycol 3350 17 Gm Powd.Pack PO Not Given DAILY JAYDEN Potassium Chloride 10 meq 10/16/25 09:00 10/17/25 08:04 Potassium Chloride 10 Meq Er Tablet PO 10 meq DAILY JAYDEN Administration Primidone 250 mg 10/15/25 17:10 10/17/25 08:04 Primidone 250 Mg Tablet PO 250 mg QID JAYDEN Administration Topiramate 25 mg 10/15/25 21:00 10/16/25 21:05 Topiramate 25 Mg Tablet PO Not Given HS [facility] Labs Labs: Laboratory Results - last 24 hr 10/17/25 05:24 WBC 10.5 H RBC 2.94 L Hgb 8.9 L Hct 27.7 L MCV 94.2 MCH 30.3 MCHC 32.1 RDW 15.7 H Plt Count 155 MPV 10.6 H Sodium 136 L Potassium 3.4 Chloride 110 H Carbon Dioxide 24 Anion Gap 2 L BUN 14 D Creatinine 0.73 Estim Creat Clear Calc 65 Estimated GFR > 60 Glucose 96 Calcium 8.4
[2025-10-17] MEDS: ACETAMINOPHEN 325 MG TABLET 650 MG PO ×2 (12:45→17:00)
[2025-10-18] VITALS (9 sets, daily range): BP systolic 137–147; BP diastolic 50–72; PULSE 56–83; RESP 15–18; TEMP 35.8–37.1; O2SAT 100
[2025-10-18] MEDS: LACTATED RINGERS 1,000 ML 100 ML IV CONT (03:51)
[2025-10-18 06:42] LABS: Hematocrit 29.7 % (37.0-47.0); Hemoglobin 8.9 g/dL (12.0-15.0); Mean Corpuscular HGB Conc 30.0 g/dl (32-36); Mean Corpuscular Hemoglobin 30.0 pg (26-34); Mean Corpuscular Volume 100.0 fl (80-100); Platelet Count Result 160 k/mm3 (150-375); Red Blood Count 2.97 M/mm3 (4.2-5.4); White Blood Count 6.1 K/mm3 (4.5-10.0)
[2025-10-18 07:03] LABS: Anion Gap 4 mmol/L (4-12); Blood Urea Nitrogen 13 mg/dL (7-17); Calcium 8.7 mg/dL (8.4-10.2); Carbon Dioxide 22 mmol/L (22-30); Chloride 111 mmol/L (98-107); Estimated CRCL calculation 76 ml/min; Estimated Glomerular Filt Rate > 60; Glucose 85 mg/dL (65-110); Potassium 3.5 mmol/L (3.4-5.0); Sodium 137 mmol/L (137-145)
[2025-10-18] MEDS: levETIRAcetam 1500MG/NACL100ML 1,500 MG/100 ML BAG 400 MG IVPB (08:04)
[2025-10-18] MEDS: PRIMIDONE 250 MG TABLET PO ×4 (08:04→21:28)
[2025-10-18] MEDS: ESCITALOPRAM OXALATE 10 MG TABLET PO (08:04)
[2025-10-18] MEDS: ENOXAPARIN 40 MG/0.4 ML SYRINGE SUB-Q (08:05)
[2025-10-18] MEDS: ALVIMOPAN 12 MG CAPSULE PO ×2 (08:05→21:28)
[2025-10-18] MEDS: ESCITALOPRAM OXALATE 5 MG TABLET PO (08:05)
[2025-10-18] MEDS: POTASSIUM CHLORIDE 10 MEQ ER TABLET PO (08:05)
[2025-10-18] MEDS: ASPIRIN 81 MG ENTERIC TABLET PO (08:08)
--- NOTE | 2025-10-18 09:35 | PM.IMPN2 ---
Assessment and Plan Assessment and Plan (1) Status post colostomy takedown: Code(s): Z98.890 - Other specified postprocedural states Status: Acute Assessment and Plan: status post ostomy takedown per general surgery patient not attempting to drink, IV fluids pain control PT/OT once patient is participating in care ST consult as patient is not following commands or speaking, she is alert patient has done this prior with surgery per records review and per family wbc improved today patient is alert and answering questions today, ST following to determine when to advance diet patient has had multiple bowel movements overnight continue to hold anticoagulation until cleared from surgical standpoint AM labs (2) Sinus tachycardia: Code(s): R00.0 - Tachycardia, unspecified Status: Acute Assessment and Plan: s/p IV fluid boluses, continue maintenance IV fluids unclear if due to pain as patient will not talk and has not responded to pain during exam pain medication per nursing if patient appears uncomfortable telemetry monitoring HR now within normal range, appears resolved (3) Hypertension: Qualifiers: Hypertension type: primary hypertension Qualified Code(s): I10 - Essential (primary) hypertension Code(s): I10 - Essential (primary) hypertension Status: Acute Assessment and Plan: hold home amlodipine until patient taking oral intake blood pressures stable monitor and add PRN medication if needed (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: Code(s): Z79.01 - penitentiary (current) use of anticoagulants Status: Acute Assessment and Plan: patient's Eliquis on hold since preoperatively surgery will decide when patient is safe to resume anticoagulation (5) Depression: Qualifiers: Depression Type: major depressive disorder Major depression recurrence: unspecified whether recurrent Active/Remission status: remission status unspecified Qualified Code(s): F32.9 - Major depressive disorder, single episode, unspecified Code(s): F32.A - Depression, unspecified Status: Acute Assessment and Plan: restart escitalopram (6) Seizure disorder: Code(s): G40.909 - Epilepsy, unspecified, not intractable, without status epilepticus Status: Acute Assessment and Plan: seizure precautions switch PO keppra to IV until patient is reliably taking oral medications no seizure activity reported Medical Record Review I have reviewed the following patient records and this information was taken into consideration when formulating the assessment and plan.: previous labs, previous ER visits and previous hospitalizations Consultations Consultations: I have discussed the care of this pt with the consulting providers. Subjective Date/time seen: 10/18/25 09:35 Interval history: Patient seen for a follow up visit. Patient lying in bed, in no acute distress. Patient is answering questions today. Patient reports she is in pain, nurse is giving some pain medication at this time. Patient is moving all extremities spontaneously. Patient has had multiple bowel movements overnight. Patient's heartrate has improved. Patient's white blood cell count is back to normal limits today. General surgery is managing patient. Speech therapy is following to recommend when patient is safe to advance diet. Continue IV fluids and IV Keppra until patient is tolerating PO. Continue to hold full anticoagulation until cleared from surgical standpoint. Review of Systems Review of Systems: ROS unobtainable: Yes unobtainable due to mental status Exam Const: General: comfortable and no acute distress Other: alert, answers yes and no to questions HENMT: Face/Nose/Sinus: Normal nares present Mouth: Yes moist mucous membranes Eyes: General: appearance normal, both eyes and all related structures Sclera: sclerae normal Pupils: Equal, round and reactive pupils present Neck: Neck: supple Resp: Effort & Inspection: normal respiratory effort Auscultation: clear to auscultation bilaterally Cardio: Rate: tachycardic Rhythm: regular rhythm GI: GI Palp: Yes Soft to palpation Other: hypoactive bowel sounds, midline surgical incision with noah, ostomy closure site with noah Urinary Catheter: Urinary Catheter: patent and draining and urine clear Skin: General skin exam: normal color and no rashes or lesions noted Neuro: Other: alert, giving yes and no answers to questions, moving all extremities spontaneously Extrem: General: normal to inspection Objective Data Vital Signs Vital Signs: Vital Signs - 24 hr 10/17/25 10:29 10/17/25 10:45 10/17/25 12:00 Temperature Pulse Rate 101 H Respiratory Rate Blood Pressure Pulse Oximetry Oxygen Delivery Room Air Room Air 10/17/25 14:00 10/17/25 16:00 10/17/25 19:49 Temperature 98.0 F 97.8 F Pulse Rate 51 L 106 H 94 Respiratory Rate 16 17 Blood Pressure 132/54 L 140/52 L Pulse Oximetry 100 98 Oxygen Delivery 10/17/25 20:00 10/18/25 00:00 10/18/25 04:00 Temperature Pulse Rate 90 83 79 Respiratory Rate Blood Pressure Pulse Oximetry Oxygen Delivery 10/18/25 05:13 Temperature 97.8 F Pulse Rate 79 Respiratory Rate 17 Blood Pressure 147/72 H Pulse Oximetry 100 Oxygen Delivery Intake/Output Intake/Output: Intake & Output 10/15/25 10/16/25 10/17/25 10/18/25 23:59 23:59 23:59 23:59 Intake Total 200 3431.7 1733.3 1000 Output Total 125 750 650 200 Balance 75 2681.7 1083.3 800 Meds/Results Medications: Active Medications Generic Name Dose Route Start Last Admin Trade Name Freq PRN Reason Stop Dose Admin Acetaminophen 650 mg 10/15/25 18:00 10/18/25 06:43 Acetaminophen 325 Mg Tablet PO Not Given Q6HR JAYDEN Alvimopan 12 mg 10/16/25 21:00 10/18/25 08:05 Alvimopan 12 Mg Capsule PO 10/23/25 20:59 12 mg Q12HR JAYDEN Administration Amlodipine Besylate 10 mg 10/16/25 09:00 Amlodipine Besylate 10 Mg Tablet PO On Hold: 10/16/25 09:00 DAILY JAYDEN Aspirin 81 mg 10/16/25 09:00 10/18/25 08:08 Aspirin 81 Mg Enteric Tablet PO 81 mg DAILY JAYDEN Administration Enoxaparin Sodium 40 mg 10/16/25 09:00 10/18/25 08:05 Enoxaparin 40 Mg/0.4 Ml Syringe SUB-Q 40 mg DAILY JAYDEN Administration Escitalopram Oxalate 10 mg 10/16/25 09:00 10/18/25 08:04 Escitalopram Oxalate 10 Mg Tablet PO 10 mg DAILY JAYDEN Administration Escitalopram Oxalate 5 mg 10/16/25 09:00 10/18/25 08:05 Escitalopram Oxalate 5 Mg Tablet PO 5 mg DAILY JAYDEN Administration Hydromorphone HCl 0.5 mg 10/15/25 17:04 10/17/25 20:58 Hydromorphone Hcl Inj (*Crx) 1 Mg/Ml Syr IV PUSH 0.5 mg Q2H PRN Administration Breakthrough Pain Rated 4-6 or NPO Lactated Ringer's 1,000 mls @ 100 mls/hr 10/15/25 17:04 10/18/25 03:51 Lr - Lactated Ringers Iv IV CONT 100 mls/hr .Q10H JAYDEN Administration Levetiracetam 1,500 mg in 100 mls @ 400 mls/hr 10/16/25 21:00 10/18/25 08:04 Keppra Iv IVPB 400 mls/hr Q12HR JAYDEN Administration Naloxone HCl 0.1 mg 10/15/25 17:04 Naloxone Hcl 0.4 Mg/Ml Vial IV PUSH Q2M PRN Opiate Reversal Ondansetron HCl 4 mg 10/15/25 17:04 Ondansetron Inj 4 Mg/2 Ml Vial IV PUSH Q4H PRN Nausea And Vomiting Oxycodone HCl 2.5 mg 10/15/25 17:04 Oxycodone Hcl (*Crx) 2.5 Mg Tab Ir PO Q4H PRN Pain Rated 4-6 Oxycodone HCl 5 mg 10/15/25 17:04 Oxycodone Hcl (*Crx) 5 Mg Tab Ir PO Q4H PRN Pain Rated 7-10 Polyethylene Glycol 17 gm 10/16/25 09:00 10/18/25 08:05 Polyethylene Glycol 3350 17 Gm Powd.Pack PO 17 gm DAILY JAYDEN Administration Potassium Chloride 10 meq 10/16/25 09:00 10/18/25 08:05 Potassium Chloride 10 Meq Er Tablet PO 10 meq DAILY JAYDEN Administration Primidone 250 mg 10/15/25 17:10 10/18/25 08:04 Primidone 250 Mg Tablet PO 250 mg QID JAYDEN Administration Topiramate 25 mg 10/15/25 21:00 10/17/25 20:57 Topiramate 25 Mg Tablet PO Not Given HS [facility] Labs Labs: Laboratory Results - last 24 hr 10/18/25 06:33 WBC 6.1 RBC 2.97 L Hgb 8.9 L Hct 29.7 L MCV 100.0 D MCH 30.0 MCHC 30.0 L RDW 15.6 H Plt Count 160 MPV 10.2 Sodium 137 Potassium 3.5 Chloride 111 H Carbon Dioxide 22 Anion Gap 4 BUN 13 Creatinine 0.62 L Estim Creat Clear Calc 76 Estimated GFR > 60 Glucose 85 Calcium 8.7 Quality VTE Prophylaxis VTE prophylaxis: pharmacologic ordered
[2025-10-18] MEDS: HYDROmorphone HCL INJ (*CRX) 1 MG/ML SYR 0.5 MG IV PUSH (10:46)
[2025-10-18] MEDS: ACETAMINOPHEN 325 MG TABLET 650 MG PO ×2 (11:39→16:55)
--- NOTE | 2025-10-18 11:52 | PM.PNGS ---
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: Code(s): Z79.01 - shelter (current) use of anticoagulants Status: Acute Assessment and Plan: Will continue Lovenox for DVT prophylaxis but hold off on resuming Eliquis until patient is further out from surgery (3) Swallowing dysfunction: Code(s): R13.10 - Dysphagia, unspecified Status: Acute Assessment and Plan: Continue with speech therapy, patient looking stronger today and hopefully will continue to improve and start oral diet soon (4) Protein calorie malnutrition: Code(s): E46 - Unspecified protein-calorie malnutrition Status: Acute Assessment and Plan: Will start PPN today as patient has already gone several days without any substantial caloric intake Subjective Subjective Date/Time Seen: 10/18/25 11:52 Interval history: Patient more alert today, following commands, moving arms and answering some questions. Bowels have moved multiple times over the past 24 hours. Exam GI: Inspection: non-distended and incision ( Intact with noah, minimal bloody drainage) GI Palp: Yes Soft to palpation and Yes Tenderness to palpation present (GI) ( mild tenderness when palpating, but no peritoneal signs) Auscultation: normal bowel sounds Objective Data Vital Signs Vital Signs: Vital Signs - 24 hr 10/17/25 12:00 10/17/25 14:00 10/17/25 16:00 Temperature 98.0 F Pulse Rate 101 H 51 L 106 H Respiratory Rate 16 Blood Pressure 132/54 L Pulse Oximetry 100 Oxygen Delivery 10/17/25 19:49 10/17/25 20:00 10/18/25 00:00 Temperature 97.8 F Pulse Rate 94 90 83 Respiratory Rate 17 Blood Pressure 140/52 L Pulse Oximetry 98 Oxygen Delivery 10/18/25 04:00 10/18/25 05:13 10/18/25 08:00 Temperature 97.8 F Pulse Rate 79 79 74 Respiratory Rate 17 Blood Pressure 147/72 H Pulse Oximetry 100 Oxygen Delivery 10/18/25 09:00 Temperature Pulse Rate Respiratory Rate Blood Pressure Pulse Oximetry Oxygen Delivery Room Air Intake/Output Intake/Output: Intake & Output 10/15/25 10/16/25 10/17/25 10/18/25 23:59 23:59 23:59 23:59 Intake Total 200 3431.7 1733.3 1000 Output Total 125 750 650 200 Balance 75 2681.7 1083.3 800 Meds/Results Medications: Active Medications Generic Name Dose Route Start Last Admin Trade Name Freq PRN Reason Stop Dose Admin Acetaminophen 650 mg 10/15/25 18:00 10/18/25 11:39 Acetaminophen 325 Mg Tablet PO 650 mg Q6HR JAYDEN Administration Alvimopan 12 mg 10/16/25 21:00 10/18/25 08:05 Alvimopan 12 Mg Capsule PO 10/23/25 20:59 12 mg Q12HR JAYDEN Administration Amlodipine Besylate 10 mg 10/16/25 09:00 Amlodipine Besylate 10 Mg Tablet PO On Hold: 10/16/25 09:00 DAILY JAYDEN Aspirin 81 mg 10/16/25 09:00 10/18/25 08:08 Aspirin 81 Mg Enteric Tablet PO 81 mg DAILY JAYDEN Administration Enoxaparin Sodium 40 mg 10/16/25 09:00 10/18/25 08:05 Enoxaparin 40 Mg/0.4 Ml Syringe SUB-Q 40 mg DAILY JAYDEN Administration Escitalopram Oxalate 10 mg 10/16/25 09:00 10/18/25 08:04 Escitalopram Oxalate 10 Mg Tablet PO 10 mg DAILY JAYDEN Administration Escitalopram Oxalate 5 mg 10/16/25 09:00 10/18/25 08:05 Escitalopram Oxalate 5 Mg Tablet PO 5 mg DAILY JAYDEN Administration Hydromorphone HCl 0.5 mg 10/15/25 17:04 10/18/25 10:46 Hydromorphone Hcl Inj (*Crx) 1 Mg/Ml Syr IV PUSH 0.5 mg Q2H PRN Administration Breakthrough Pain Rated 4-6 or NPO Levetiracetam 1,500 mg in 100 mls @ 400 mls/hr 10/16/25 21:00 10/18/25 08:04 Keppra Iv IVPB 400 mls/hr Q12HR JAYDEN Administration Naloxone HCl 0.1 mg 10/15/25 17:04 Naloxone Hcl 0.4 Mg/Ml Vial IV PUSH Q2M PRN Opiate Reversal Ondansetron HCl 4 mg 10/15/25 17:04 Ondansetron Inj 4 Mg/2 Ml Vial IV PUSH Q4H PRN Nausea And Vomiting Oxycodone HCl 2.5 mg 10/15/25 17:04 Oxycodone Hcl (*Crx) 2.5 Mg Tab Ir PO Q4H PRN Pain Rated 4-6 Polyethylene Glycol 17 gm 10/16/25 09:00 10/18/25 08:05 Polyethylene Glycol 3350 17 Gm Powd.Pack PO 17 gm DAILY JAYDEN Administration Potassium Chloride 10 meq 10/16/25 09:00 10/18/25 08:05 Potassium Chloride 10 Meq Er Tablet PO 10 meq DAILY JAYDEN Administration Primidone 250 mg 10/15/25 17:10 10/18/25 11:39 Primidone 250 Mg Tablet PO 250 mg QID JAYDEN Administration Topiramate 25 mg 10/15/25 21:00 10/17/25 20:57 Topiramate 25 Mg Tablet PO Not Given HS JAYDEN Labs Labs: Laboratory Results - last 24 hr 10/18/25 06:33 WBC 6.1 RBC 2.97 L Hgb 8.9 L Hct 29.7 L MCV 100.0 D MCH 30.0 MCHC 30.0 L RDW 15.6 H Plt Count 160 MPV 10.2 Sodium 137 Potassium 3.5 Chloride 111 H Carbon Dioxide 22 Anion Gap 4 BUN 13 Creatinine 0.62 L Estim Creat Clear Calc 76 Estimated GFR > 60 Glucose 85 Calcium 8.7
[2025-10-18] MEDS: AMINO ACIDS 4.25%/D5W/LYTES/CA 1,000 ML 80 ML IV CONT (13:55)
[2025-10-18] MEDS: FAT EMULSIONS IV 20% 250 ML 20.83 ML IVPB (13:56)
[2025-10-18] MEDS: TOPIRAMATE 25 MG TABLET PO (21:28)
[2025-10-19] VITALS (9 sets, daily range): BP systolic 135–143; BP diastolic 64–68; PULSE 66–78; RESP 16–18; TEMP 36–36.7; O2SAT 100
[2025-10-19] MEDS: levETIRAcetam ORAL SOL 500 MG/5 ML UDC 1500 MG BY MOUTH ×3 (00:34→22:28)
[2025-10-19] MEDS: ACETAMINOPHEN 325 MG TABLET 650 MG PO ×5 (00:34→23:49)
[2025-10-19 06:11] LABS: Hematocrit 29.5 % (37.0-47.0); Hemoglobin 9.4 g/dL (12.0-15.0); Mean Corpuscular HGB Conc 31.9 g/dl (32-36); Mean Corpuscular Hemoglobin 29.7 pg (26-34); Mean Corpuscular Volume 93.4 fl (80-100); Platelet Count Result 189 k/mm3 (150-375); Red Blood Count 3.16 M/mm3 (4.2-5.4); White Blood Count 4.3 K/mm3 (4.5-10.0)
[2025-10-19 06:24] LABS: Anion Gap 3 mmol/L (4-12); Blood Urea Nitrogen 8 mg/dL (7-17); Calcium 8.7 mg/dL (8.4-10.2); Carbon Dioxide 26 mmol/L (22-30); Chloride 106 mmol/L (98-107); Estimated CRCL calculation 83 ml/min; Estimated Glomerular Filt Rate > 60; Glucose 108 mg/dL (65-110); Potassium 3.2 mmol/L (3.4-5.0); Sodium 135 mmol/L (137-145)
[2025-10-19] MEDS: ASPIRIN 81 MG ENTERIC TABLET PO (08:51)
[2025-10-19] MEDS: POTASSIUM CHLORIDE 10 MEQ ER TABLET PO (08:51)
[2025-10-19] MEDS: ESCITALOPRAM OXALATE 10 MG TABLET PO (08:51)
[2025-10-19] MEDS: PRIMIDONE 250 MG TABLET PO ×4 (08:51→22:29)
[2025-10-19] MEDS: ESCITALOPRAM OXALATE 5 MG TABLET PO (08:51)
[2025-10-19] MEDS: ALVIMOPAN 12 MG CAPSULE PO ×2 (08:51→22:29)
[2025-10-19] MEDS: ENOXAPARIN 40 MG/0.4 ML SYRINGE SUB-Q (08:52)
[2025-10-19] MEDS: oxyCODONE HCL (*CRX) 2.5 MG TAB IR PO (10:06)
[2025-10-19 10:13] LABS: Triglycerides 137 mg/dL (<150)
--- NOTE | 2025-10-19 10:46 | PM.IMPN2 ---
Assessment and Plan Assessment and Plan (1) Status post colostomy takedown: Code(s): Z98.890 - Other specified postprocedural states Status: Acute Assessment and Plan: status post ostomy takedown per general surgery patient not attempting to drink, IV fluids, started on PPN by surgery team pain control PT/OT once patient is participating in care ST consult as patient is not following commands or speaking, she is alert, they will see her again today to reassess patient has done this prior with surgery per records review and per family wbc improved patient is alert and answering questions today, ST following to determine when to advance diet patient has had multiple bowel movements the last two days continue to hold anticoagulation until cleared from surgical standpoint AM labs (2) Sinus tachycardia: Code(s): R00.0 - Tachycardia, unspecified Status: Acute Assessment and Plan: s/p IV fluid boluses, continue maintenance IV fluids unclear if due to pain as patient will not talk and has not responded to pain during exam pain medication per nursing if patient appears uncomfortable telemetry monitoring HR now within normal range, appears resolved (3) Hypertension: Qualifiers: Hypertension type: primary hypertension Qualified Code(s): I10 - Essential (primary) hypertension Code(s): I10 - Essential (primary) hypertension Status: Acute Assessment and Plan: hold home amlodipine until patient taking oral intake blood pressures stable monitor and add PRN medication if needed (4) halfway current use of anticoagulant: Code(s): Z79.01 - halfway (current) use of anticoagulants Status: Acute Assessment and Plan: patient's Eliquis on hold since preoperatively surgery will decide when patient is safe to resume anticoagulation (5) Depression: Qualifiers: Active/Remission status: remission status unspecified Depression Type: major depressive disorder Major depression recurrence: unspecified whether recurrent Qualified Code(s): F32.9 - Major depressive disorder, single episode, unspecified Code(s): F32.A - Depression, unspecified Status: Acute Assessment and Plan: restart escitalopram (6) Seizure disorder: Code(s): G40.909 - Epilepsy, unspecified, not intractable, without status epilepticus Status: Acute Assessment and Plan: seizure precautions switch PO keppra to IV until patient is reliably taking oral medications no seizure activity reported Medical Record Review I have reviewed the following patient records and this information was taken into consideration when formulating the assessment and plan.: previous labs, previous ER visits and previous hospitalizations Consultations Consultations: I have discussed the care of this pt with the consulting providers. Subjective Date/time seen: 10/19/25 10:46 Interval history: Patient seen for a follow up visit. Patient lying in bed, in no acute distress. Patient is answering simple questions. Patient is being followed by speech therapy to determine when she can safely start eating. Patient started on PPN by surgery team since she is not eating. Patient's HR and WBC both remain WNL. PT/OT ordered. Review of Systems Review of Systems: ROS unobtainable: Yes unobtainable due to mental status Exam Const: General: comfortable and no acute distress Other: alert, answers yes and no to questions HENMT: Face/Nose/Sinus: Normal nares present Mouth: Yes moist mucous membranes Eyes: General: appearance normal, both eyes and all related structures Sclera: sclerae normal Pupils: Equal, round and reactive pupils present Neck: Neck: supple Resp: Effort & Inspection: normal respiratory effort Auscultation: clear to auscultation bilaterally Cardio: Rate: tachycardic Rhythm: regular rhythm GI: GI Palp: Yes Soft to palpation Other: hypoactive bowel sounds, midline surgical incision with noah, ostomy closure site with noah Urinary Catheter: Urinary Catheter: patent and draining and urine clear Skin: General skin exam: normal color and no rashes or lesions noted Neuro: Other: alert, giving yes and no answers to questions, moving all extremities spontaneously Extrem: General: normal to inspection Objective Data Vital Signs Vital Signs: Vital Signs - 24 hr 10/18/25 12:00 10/18/25 14:00 10/18/25 16:00 Temperature 96.4 F L Pulse Rate 69 56 L 77 Respiratory Rate 18 Blood Pressure 137/50 L Pulse Oximetry 100 Oxygen Delivery 10/18/25 19:40 10/18/25 20:00 10/18/25 20:00 Temperature 98.8 F Pulse Rate 74 73 Respiratory Rate 15 Blood Pressure 147/64 H Pulse Oximetry 100 Oxygen Delivery Room Air 10/19/25 00:00 10/19/25 04:00 10/19/25 04:42 Temperature 96.8 F L Pulse Rate 78 78 71 Respiratory Rate 16 Blood Pressure 141/68 H Pulse Oximetry 100 Oxygen Delivery Intake/Output Intake/Output: Intake & Output 10/16/25 10/17/25 10/18/25 10/19/25 23:59 23:59 23:59 23:59 Intake Total 3431.7 1733.3 1000 Output Total 750 226 565 3336 Balance 2681.7 1083.3 350 -1000 Meds/Results Medications: Active Medications Generic Name Dose Route Start Last Admin Trade Name Freq PRN Reason Stop Dose Admin Acetaminophen 650 mg 10/15/25 18:00 10/19/25 06:07 Acetaminophen 325 Mg Tablet PO 650 mg Q6HR JAYDEN Administration Alvimopan 12 mg 10/16/25 21:00 10/19/25 08:51 Alvimopan 12 Mg Capsule PO 10/23/25 20:59 12 mg Q12HR JAYDEN Administration Amlodipine Besylate 10 mg 10/16/25 09:00 Amlodipine Besylate 10 Mg Tablet PO On Hold: 10/16/25 09:00 DAILY JAYDEN Aspirin 81 mg 10/16/25 09:00 10/19/25 08:51 Aspirin 81 Mg Enteric Tablet PO 81 mg DAILY JAYDEN Administration Enoxaparin Sodium 40 mg 10/16/25 09:00 10/19/25 08:52 Enoxaparin 40 Mg/0.4 Ml Syringe SUB-Q 40 mg DAILY JAYDEN Administration Escitalopram Oxalate 10 mg 10/16/25 09:00 10/19/25 08:51 Escitalopram Oxalate 10 Mg Tablet PO 10 mg DAILY JAYDEN Administration Escitalopram Oxalate 5 mg 10/16/25 09:00 10/19/25 08:51 Escitalopram Oxalate 5 Mg Tablet PO 5 mg DAILY JAYDEN Administration Hydromorphone HCl 0.5 mg 10/15/25 17:04 10/18/25 10:46 Hydromorphone Hcl Inj (*Crx) 1 Mg/Ml Syr IV PUSH 0.5 mg Q2H PRN Administration Breakthrough Pain Rated 4-6 or NPO Dextrose 1,000 mls @ 50 mls/hr 10/18/25 11:50 Dextrose 10% IV CONT .Q20H PRN if PN is interrupted Amino Acids/Electrolytes/Dextrose 1,000 mls @ 80 mls/hr 10/18/25 14:00 10/19/25 02:40 Clinimix E 4.25%/5% Solution IV CONT Not Given .[id number] [facility] Protocol Fat Emulsion Intravenous 250 mls @ 20.833 mls/hr 10/18/25 14:00 10/18/25 13:56 Lipids 20% IVPB 20.83 mls/hr Q24H JAYDEN Administration Levetiracetam 1,500 mg 10/19/25 00:15 10/19/25 08:52 Levetiracetam Oral [place] 500 Mg/5 Ml Udc BY MOUTH 1,500 mg Q12HR JAYDEN Administration Naloxone HCl 0.1 mg 10/15/25 17:04 Naloxone Hcl 0.4 Mg/Ml Vial IV PUSH Q2M PRN Opiate Reversal Ondansetron HCl 4 mg 10/15/25 17:04 Ondansetron Inj 4 Mg/2 Ml Vial IV PUSH Q4H PRN Nausea And Vomiting Oxycodone HCl 2.5 mg 10/15/25 17:04 10/19/25 10:06 Oxycodone Hcl (*Crx) 2.5 Mg Tab Ir PO 2.5 mg Q4H PRN Administration Pain Rated 4-6 Polyethylene Glycol 17 gm 10/16/25 09:00 10/19/25 09:11 Polyethylene Glycol 3350 17 Gm Powd.Pack PO Not Given DAILY JAYDEN Potassium Chloride 10 meq 10/16/25 09:00 10/19/25 08:51 Potassium Chloride 10 Meq Er Tablet PO 10 meq DAILY JAYDEN Administration Primidone 250 mg 10/15/25 17:10 10/19/25 08:51 Primidone 250 Mg Tablet PO 250 mg QID JAYDEN Administration Topiramate 25 mg 10/15/25 21:00 10/18/25 21:28 Topiramate 25 Mg Tablet PO 25 mg HS JAYDEN Administration Labs Labs: Laboratory Results - last 24 hr 10/19/25 10/19/25 10/19/25 00:04 05:20 05:54 WBC 4.3 L RBC 3.16 L Hgb 9.4 L Hct 29.5 L MCV 93.4 D MCH 29.7 MCHC 31.9 L RDW 14.9 H Plt Count 189 MPV 9.9 Sodium 135 L Potassium 3.2 L Chloride 106 Carbon Dioxide 26 Anion Gap 3 L BUN 8 D Creatinine 0.56 L Estim Creat Clear Calc 83 Estimated GFR > 60 Glucose 108 POC Capillary Glucose 118 H 106 H Calcium 8.7 Phosphorus 2.6 Triglycerides 137 Quality VTE Prophylaxis VTE prophylaxis: pharmacologic ordered
[2025-10-19] MEDS: FAT EMULSIONS IV 20% 250 ML 20.83 ML IVPB (13:16)
[2025-10-19] MEDS: AMINO ACIDS 4.25%/D5W/LYTES/CA 1,000 ML 80 ML IV CONT (13:16)
--- NOTE | 2025-10-19 14:18 | P.PNGS_ITS ---
Progress Note: A&P Assessment and Plan (1) Status post colostomy takedown: Code(s): Z98.890 - Other specified postprocedural states Status: Acute Assessment and Plan: * Still awaiting better swallowing function to resume diet, possible MBS tomorrow. 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 anticoagulants Status: Acute Assessment and Plan: * Will continue Lovenox for DVT prophylaxis but hold off on resuming Eliquis until patient is further out from surgery (3) Swallowing dysfunction: Code(s): R13.10 - Dysphagia, unspecified Status: Acute Assessment and Plan: * Continue with speech therapy, patient looking stronger today and hopefully wi ll continue to improve and start oral diet soon (4) Protein calorie malnutrition: Code(s): E46 - Unspecified protein-calorie malnutrition Status: Acute Assessment and Plan: * Continue PPN until able to start a regular diet Subjective Subjective Date/Time Seen: 10/19/25 14:18 Interval history: Talking better today. Pain controlled. Bowels moving. No fevers. Following commands. Exam GI: Inspection: non-distended and incision ( Intact with noah) GI Palp: Yes Soft to palpation and Yes Tenderness to palpation present (GI) ( mild tenderness when palpating, but no peritoneal signs) Auscultation: normal bowel sounds Objective Data Vital Signs Vital Signs: Vital Signs - 24 hr 10/18/25 16:00 10/18/25 19:40 10/18/25 20:00 Temperature 98.8 F Pulse Rate 77 74 Respiratory Rate 15 Blood Pressure 147/64 H Pulse Oximetry 100 Oxygen Delivery Room Air 10/18/25 20:00 10/19/25 00:00 10/19/25 04:00 Temperature Pulse Rate 73 78 78 Respiratory Rate Blood Pressure Pulse Oximetry Oxygen Delivery 10/19/25 04:42 10/19/25 08:00 10/19/25 08:50 Temperature 96.8 F L Pulse Rate 71 73 Respiratory Rate 16 Blood Pressure 141/68 H Pulse Oximetry 100 Oxygen Delivery Room Air Intake/Output Intake/Output: Intake & Output 10/16/25 10/17/25 10/18/25 10/19/25 23:59 23:59 23:59 23:59 Intake Total 3431.7 1733.3 1000 1250 Output Total 750 141 254 8928 Balance 2681.7 1083.3 350 250 Meds/Results Medications: Active Medications Generic Name Dose Route Start Last Admin Trade Name Freq PRN Reason Stop Dose Admin Acetaminophen 650 mg 10/15/25 18:00 10/19/25 11:56 Acetaminophen 325 Mg Tablet PO 650 mg Q6HR JAYDEN Administration Alvimopan 12 mg 10/16/25 21:00 10/19/25 08:51 Alvimopan 12 Mg Capsule PO 10/23/25 20:59 12 mg Q12HR JAYDEN Administration Amlodipine Besylate 10 mg 10/16/25 09:00 Amlodipine Besylate 10 Mg Tablet PO On Hold: 10/16/25 09:00 DAILY JAYDEN Aspirin 81 mg 10/16/25 09:00 10/19/25 08:51 Aspirin 81 Mg Enteric Tablet PO 81 mg DAILY JAYDEN Administration Enoxaparin Sodium 40 mg 10/16/25 09:00 10/19/25 08:52 Enoxaparin 40 Mg/0.4 Ml Syringe SUB-Q 40 mg DAILY JYADEN Administration Escitalopram Oxalate 10 mg 10/16/25 09:00 10/19/25 08:51 Escitalopram Oxalate 10 Mg Tablet PO 10 mg DAILY JAYDEN Administration Escitalopram Oxalate 5 mg 10/16/25 09:00 10/19/25 08:51 Escitalopram Oxalate 5 Mg Tablet PO 5 mg DAILY JAYDEN Administration Hydromorphone HCl 0.5 mg 10/15/25 17:04 10/18/25 10:46 Hydromorphone Hcl Inj (*Crx) 1 Mg/Ml Syr IV PUSH 0.5 mg Q2H PRN Administration Breakthrough Pain Rated 4-6 or NPO Dextrose 1,000 mls @ 50 mls/hr 10/18/25 11:50 Dextrose 10% IV CONT .Q20H PRN if PN is interrupted Amino Acids/Electrolytes/Dextrose 1,000 mls @ 80 mls/hr 10/18/25 14:00 10/19/25 13:16 Clinimix E 4.25%/5% Solution IV CONT 80 mls/hr .[id number] JAYDEN Administration Protocol Fat Emulsion Intravenous 250 mls @ 20.833 mls/hr 10/18/25 14:00 10/19/25 13:16 Lipids 20% IVPB 20.83 mls/hr Q24H JAYDEN Administration Levetiracetam 1,500 mg 10/19/25 00:15 10/19/25 08:52 Levetiracetam Oral [place] 500 Mg/5 Ml Udc BY MOUTH 1,500 mg Q12HR JAYDEN Administration Miscellaneous Information 1 each 10/19/25 00:01 Please Renew Clinamix. Per [employer] Procedure, It Will Discontinue If Not Renewed. XX 11/18/25 00:00 CLARIFY JAYDEN Naloxone HCl 0.1 mg 10/15/25 17:04 Naloxone Hcl 0.4 Mg/Ml Vial IV PUSH Q2M PRN Opiate Reversal Ondansetron HCl 4 mg 10/15/25 17:04 Ondansetron Inj 4 Mg/2 Ml Vial IV PUSH Q4H PRN Nausea And Vomiting Oxycodone HCl 2.5 mg 10/15/25 17:04 10/19/25 10:06 Oxycodone Hcl (*Crx) 2.5 Mg Tab Ir PO 2.5 mg Q4H PRN Administration Pain Rated 4-6 Polyethylene Glycol 17 gm 10/16/25 09:00 10/19/25 09:11 Polyethylene Glycol 3350 17 Gm Powd.Pack PO Not Given DAILY JAYDEN Potassium Chloride 10 meq 10/16/25 09:00 10/19/25 08:51 Potassium Chloride 10 Meq Er Tablet PO 10 meq DAILY JAYDEN Administration Primidone 250 mg 10/15/25 17:10 10/19/25 12:03 Primidone 250 Mg Tablet PO 250 mg QID JAYDEN Administration Topiramate 25 mg 10/15/25 21:00 10/18/25 21:28 Topiramate 25 Mg Tablet PO 25 mg HS JAYDEN Administration Labs Labs: Laboratory Results - last 24 hr 10/19/25 10/19/25 10/19/25 00:04 05:20 05:54 WBC 4.3 L RBC 3.16 L Hgb 9.4 L Hct 29.5 L MCV 93.4 D MCH 29.7 MCHC 31.9 L RDW 14.9 H Plt Count 189 MPV 9.9 Sodium 135 L Potassium 3.2 L Chloride 106 Carbon Dioxide 26 Anion Gap 3 L BUN 8 D Creatinine 0.56 L Estim Creat Clear Calc 83 Estimated GFR > 60 Glucose 108 POC Capillary Glucose 118 H 106 H Calcium 8.7 Phosphorus 2.6 Triglycerides 137 10/19/25 11:58 WBC RBC Hgb Hct MCV MCH MCHC RDW Plt Count MPV Sodium Potassium Chloride Carbon Dioxide Anion Gap BUN Creatinine Estim Creat Clear Calc Estimated GFR Glucose POC Capillary Glucose 114 H Calcium Phosphorus Triglycerides
[2025-10-19] MEDS: POTASSIUM CHLORIDE INJ 40 MEQ in SODIUM CHLORIDE 0.9% IV 500 ML 130 MEQ IVPB (15:32)
[2025-10-19] MEDS: TOPIRAMATE 25 MG TABLET PO (22:29)
[2025-10-20] VITALS (9 sets, daily range): BP systolic 138–143; BP diastolic 69–74; PULSE 72–85; RESP 16–21; TEMP 35.8–36.7; O2SAT 100; BMI 29.0
[2025-10-20] MEDS: AMINO ACIDS 4.25%/D5W/LYTES/CA 1,000 ML 80 ML IV CONT ×2 (05:20→16:41)
[2025-10-20] MEDS: ACETAMINOPHEN 325 MG TABLET 650 MG PO ×4 (05:20→23:01)
[2025-10-20 06:08] LABS: Hematocrit 25.5 % (37.0-47.0); Hemoglobin 8.3 g/dL (12.0-15.0); Immature Granulocyte Percent A 0.4 % (0-0.5); Lymphocytes Absolute Auto 1.06 K/mm3 (0.9-3.2); Mean Corpuscular HGB Conc 32.5 g/dl (32-36); Mean Corpuscular Hemoglobin 30.1 pg (26-34); Mean Corpuscular Volume 92.4 fl (80-100); Nucleated Red Blood Cells Absolute Auto 0.000 K/mm3 (0.0-0.012); Nucleated Red Blood Cells Perc 0.0 % (0.0-0.2); Platelet Count Result 200 k/mm3 (150-375); Red Blood Count 2.76 M/mm3 (4.2-5.4); White Blood Count 4.9 K/mm3 (4.5-10.0)
[2025-10-20 06:20] LABS: INR 1.1; Prothrombin Time 13.9 Seconds (11.1-14.7)
[2025-10-20 06:21] LABS: Partial Thromboplastin Time 35.2 Seconds (22.3-36.8)
[2025-10-20 06:26] LABS: Alanine Aminotransferase 24 U/L (6-35); Albumin Level 2.8 g/dL (3.5-5.1); Alkaline Phosphatase 142 U/L (38-126); Anion Gap 3 mmol/L (4-12); Aspartate Amino Transferase 22 U/L (14-36); Bilirubin,Total 0.4 mg/dL (0.2-1.3); Blood Urea Nitrogen 7 mg/dL (7-17); Calcium 8.2 mg/dL (8.4-10.2); Carbon Dioxide 26 mmol/L (22-30); Chloride 105 mmol/L (98-107); Estimated CRCL calculation 90 ml/min; Estimated Glomerular Filt Rate > 60; Glucose 102 mg/dL (65-110); Magnesium 1.9 mg/dL (1.6-2.3); Potassium 3.5 mmol/L (3.4-5.0); Sodium 134 mmol/L (137-145); Total Protein 6.6 g/dL (6.3-8.2)
[2025-10-20 06:33] LABS: Transferrin 106 mg/dL (206-381)
[2025-10-20] MEDS: PRIMIDONE 250 MG TABLET PO ×4 (08:13→22:09)
[2025-10-20] MEDS: ESCITALOPRAM OXALATE 10 MG TABLET PO (08:13)
[2025-10-20] MEDS: ENOXAPARIN 40 MG/0.4 ML SYRINGE SUB-Q (08:13)
[2025-10-20] MEDS: levETIRAcetam ORAL SOL 500 MG/5 ML UDC 1500 MG BY MOUTH (08:13)
[2025-10-20] MEDS: ASPIRIN 81 MG ENTERIC TABLET PO (08:13)
[2025-10-20] MEDS: POTASSIUM CHLORIDE 10 MEQ ER TABLET PO (08:13)
[2025-10-20] MEDS: ALVIMOPAN 12 MG CAPSULE PO ×2 (08:13→22:09)
[2025-10-20] MEDS: ESCITALOPRAM OXALATE 5 MG TABLET PO (08:13)
--- NOTE | 2025-10-20 09:55 | PCOTNOTE ---
Patient unavailable for OT session at this time. Patient goign down for a MBS at this time.
--- NOTE | 2025-10-20 11:23 | PCSTNOTE ---
Please refer to the Modified Barium Swallow Evaluation in the EMR. The above pt with a history of SDH, SAH, C2 fracture, and seizure disorder was admitted with a dx of diverticulitis and enterorectal fistula. BSE revealed possible aspiration but at the time of the BSE pt exhibited reduced alertness. MBS was completed this am. Pt was alert and even joked with radiologist. Pt was noted to be edentulous; vocal quality was clear. The patient was seated for a lateral view and presented with 5 ml trials of thin liquid barium via a spoon, pudding consistency barium via a spoon, crumbled pieces of cracker coated with barium pudding via a spoon, and uncontrolled thin liquid barium. This was presented via a cup & straw. Oral preparatory and oral phase symptoms: slow mastication & brief oral hold but no residual or leakage. Pharyngeal phase symptoms: within functional limits; no laryngeal penetration or residual occurred. Esophageal stage symptoms: none. No aspiration occurred. Impressions: Functional swallow Ability Recommendation: level 5 minced and moist and level 0 regular thin liquid No further ST is warranted at this time.
--- NOTE | 2025-10-20 12:39 | P.PNGS_ITS ---
Progress Note: A&P Assessment and Plan (1) Status post colostomy takedown: Code(s): Z98.890 - Other specified postprocedural states Status: Acute Assessment and Plan: * MBS today. Speech recommending level 5 diet. * Continue PT/OT. * (2) assisted current use of anticoagulant: Code(s): Z79.01 - assisted (current) use of anticoagulants Status: Acute Assessment and Plan: * Will continue Lovenox for DVT prophylaxis but hold off on resuming Eliquis until patient is further out from surgery (3) Swallowing dysfunction: Code(s): R13.10 - Dysphagia, unspecified Status: Acute Assessment and Plan: * Continue with speech therapy, patient doing well and continues to improve clinically (4) Protein calorie malnutrition: Code(s): E46 - Unspecified protein-calorie malnutrition Status: Acute Assessment and Plan: * Continue PPN. Will likely discontinue once tolerating her diet. Plan Discussed patient's case and plan of care with Dr. Coley. Subjective Subjective Date/Time Seen: 10/20/25 12:39 Post Op day: 5 Patient reports: no new complaints, feels better, bowel movement and afebrile Interval history: Patient doing well today. No complaints and no acute events overnight. MBS this morning - ok to have level 5 diet. WBC normal. Exam Const: General: comfortable and no acute distress GI: Inspection: non-distended GI Palp: Yes Soft to palpation, No Tenderness to palpation present (GI) and No Guarding due to palpation present (GI) Other: Incisions clean and dry with no signs of infection or dehiscence Objective Data Vital Signs Vital Signs: Vital Signs - 24 hr 10/19/25 14:00 10/19/25 16:00 10/19/25 20:00 Temperature 98.0 F Pulse Rate 66 76 Respiratory Rate 18 Blood Pressure 135/64 Pulse Oximetry 100 Oxygen Delivery Room Air 10/19/25 20:00 10/19/25 21:00 10/20/25 00:00 Temperature 97.5 F L Pulse Rate 77 72 76 Respiratory Rate 16 Blood Pressure 143/66 H Pulse Oximetry 100 Oxygen Delivery 10/20/25 04:00 10/20/25 05:05 10/20/25 08:00 Temperature 96.4 F L Pulse Rate 85 72 Respiratory Rate 20 Blood Pressure 139/69 Pulse Oximetry 100 Oxygen Delivery Room Air 10/20/25 08:00 Temperature Pulse Rate 80 Respiratory Rate Blood Pressure Pulse Oximetry Oxygen Delivery Intake/Output Intake/Output: Intake & Output 10/17/25 10/18/25 10/19/25 10/20/25 23:59 23:59 23:59 23:59 Intake Total 1733.3 1000 1250 1050 Output Total 967 672 5537 2125 Balance 1083.3 [phone] -346 -[phone] Meds/Results Medications: Active Medications Generic Name Dose Route Start Last Admin Trade Name Freq PRN Reason Stop Dose Admin Acetaminophen 650 mg 10/15/25 18:00 10/20/25 12:16 Acetaminophen 325 Mg Tablet PO 650 mg Q6HR JAYDEN Administration Alvimopan 12 mg 10/16/25 21:00 10/20/25 08:13 Alvimopan 12 Mg Capsule PO 10/23/25 20:59 12 mg Q12HR JAYDEN Administration Amlodipine Besylate 10 mg 10/16/25 09:00 Amlodipine Besylate 10 Mg Tablet PO On Hold: 10/16/25 09:00 DAILY JAYDEN Aspirin 81 mg 10/16/25 09:00 10/20/25 08:13 Aspirin 81 Mg Enteric Tablet PO 81 mg DAILY JAYDEN Administration Enoxaparin Sodium 40 mg 10/16/25 09:00 10/20/25 08:13 Enoxaparin 40 Mg/0.4 Ml Syringe SUB-Q 40 mg DAILY JAYDEN Administration Escitalopram Oxalate 10 mg 10/16/25 09:00 10/20/25 08:13 Escitalopram Oxalate 10 Mg Tablet PO 10 mg DAILY JAYDEN Administration Escitalopram Oxalate 5 mg 10/16/25 09:00 10/20/25 08:13 Escitalopram Oxalate 5 Mg Tablet PO 5 mg DAILY JAYDEN Administration Hydromorphone HCl 0.5 mg 10/15/25 17:04 10/18/25 10:46 Hydromorphone Hcl Inj (*Crx) 1 Mg/Ml Syr IV PUSH 0.5 mg Q2H PRN Administration Breakthrough Pain Rated 4-6 or NPO Dextrose 1,000 mls @ 50 mls/hr 10/18/25 11:50 Dextrose 10% IV CONT .Q20H PRN if PN is interrupted Amino Acids/Electrolytes/Dextrose 1,000 mls @ 80 mls/hr 10/18/25 14:00 05:20 Clinimix E 4.25%/5% Solution IV CONT 80 mls/hr .[id number] JAYDEN Administration Protocol Fat Emulsion Intravenous 250 mls @ 20.833 mls/hr 10/18/25 14:00 10/19/25 13:16 Lipids 20% IVPB 20.83 mls/hr Q24H JAYDEN Administration Levetiracetam 1,500 mg 10/19/25 00:15 10/20/25 08:13 Levetiracetam Oral [place] 500 Mg/5 Ml Udc BY MOUTH 1,500 mg Q12HR JAYDEN Administration Miscellaneous Information 1 each 10/19/25 00:01 Please Renew Clinamix. Per [employer] Procedure, It Will Discontinue If Not Renewed. XX 11/18/25 00:00 CLARIFY JAYDEN Naloxone HCl 0.1 mg 10/15/25 17:04 Naloxone Hcl 0.4 Mg/Ml Vial IV PUSH Q2M PRN Opiate Reversal Ondansetron HCl 4 mg 10/15/25 17:04 Ondansetron Inj 4 Mg/2 Ml Vial IV PUSH Q4H PRN Nausea And Vomiting Oxycodone HCl 2.5 mg 10/15/25 17:04 10/19/25 10:06 Oxycodone Hcl (*Crx) 2.5 Mg Tab Ir PO 2.5 mg Q4H PRN Administration Pain Rated 4-6 Polyethylene Glycol 17 gm 10/16/25 09:00 10/19/25 09:11 Polyethylene Glycol 3350 17 Gm Powd.Pack PO Not Given DAILY JAYDEN Potassium Chloride 10 meq 10/16/25 09:00 10/20/25 08:13 Potassium Chloride 10 Meq Er Tablet PO 10 meq DAILY JAYDEN Administration Primidone 250 mg 10/15/25 17:10 10/20/25 12:16 Primidone 250 Mg Tablet PO 250 mg QID JAYDEN Administration Topiramate 25 mg 10/15/25 21:00 10/19/25 22:29 Topiramate 25 Mg Tablet PO 25 mg HS JAYDEN Administration Radiology Results: ITS Impressions Modified Barium Swallow 10/20/25 10:35 IMPRESSION: No aspiration observed. See speech therapist's note for complete evaluation. Labs Labs: Laboratory Results - last 24 hr 10/19/25 10/20/25 10/20/25 17:18 00:10 05:25 WBC 4.9 RBC 2.76 L Hgb 8.3 L Hct 25.5 L MCV 92.4 MCH 30.1 MCHC 32.5 RDW 14.8 H Plt Count 200 MPV 10.7 H Immature Gran % (Auto) 0.4 Neut % (Auto) 66.8 Lymph % (Auto) 21.6 [place] % (Auto) 9.2 H Eos % (Auto) 1.8 Baso % (Auto) 0.2 Lymph # (Auto) 1.06 [place] # (Auto) 0.5 Eos # (Auto) 0.1 Baso # (Auto) 0.0 Abs Immat Gran (auto) 0.02 Absolute Neuts (auto) 3.3 Absolute Nucleated RBC 0.000 Nucleated RBC % 0.0 PT 13.9 INR 1.1 APTT 35.2 Sodium 134 L Potassium 3.5 Chloride 105 Carbon Dioxide 26 Anion Gap 3 L BUN 7 Creatinine 0.50 L Estim Creat Clear Calc 90 Estimated GFR > 60 Glucose 102 POC Capillary Glucose 126 H 150 H Calcium 8.2 L Phosphorus 3.1 Magnesium 1.9 Transferrin 106 L Total Bilirubin 0.4 AST 22 ALT 24 Alkaline Phosphatase 142 H Total Protein 6.6 Albumin 2.8 L 10/20/25 12:26 WBC RBC Hgb Hct MCV MCH MCHC RDW Plt Count MPV Immature Gran % (Auto) Neut % (Auto) Lymph % (Auto) [place] % (Auto) Eos % (Auto) Baso % (Auto) Lymph # (Auto) [place] # (Auto) Eos # (Auto) Baso # (Auto) Abs Immat Gran (auto) Absolute Neuts (auto) Absolute Nucleated RBC Nucleated RBC % PT INR APTT Sodium Potassium Chloride Carbon Dioxide Anion Gap BUN Creatinine Estim Creat Clear Calc Estimated GFR Glucose POC Capillary Glucose 115 H Calcium Phosphorus Magnesium Transferrin Total Bilirubin AST ALT Alkaline Phosphatase Total Protein Albumin
[2025-10-20] MEDS: FAT EMULSIONS IV 20% 250 ML 20.83 ML IVPB (13:39)
--- NOTE | 2025-10-20 13:47 | PM.IMPN2 ---
Assessment and Plan Assessment and Plan (1) Status post colostomy takedown: Code(s): Z98.890 - Other specified postprocedural states Status: Acute Assessment and Plan: status post ostomy takedown per general surgery patient not attempting to drink, IV fluids, started on PPN by surgery team pain control PT/OT once patient is participating in care ST consult as patient is not following commands or speaking, she is alert, they will see her again today to reassess patient has done this prior with surgery per records review and per family wbc improved patient is alert and answering questions today, ST following to determine when to advance diet patient has had multiple bowel movements the last two days continue to hold anticoagulation until cleared from surgical standpoint patient had modified barium swallow today and no aspiratio detected minced and moist diet due to not having dentures with patient AM labs (2) Sinus tachycardia: Code(s): R00.0 - Tachycardia, unspecified Status: Acute Assessment and Plan: s/p IV fluid boluses, continue maintenance IV fluids unclear if due to pain as patient will not talk and has not responded to pain during exam pain medication per nursing if patient appears uncomfortable telemetry monitoring HR now within normal range, appears resolved (3) Hypertension: Qualifiers: Hypertension type: primary hypertension Qualified Code(s): I10 - Essential (primary) hypertension Code(s): I10 - Essential (primary) hypertension Status: Acute Assessment and Plan: hold home amlodipine until patient taking oral intake blood pressures stable monitor and add PRN medication if needed (4) nursing home current use of anticoagulant: Code(s): Z79.01 - nursing home (current) use of anticoagulants Status: Acute Assessment and Plan: patient's Eliquis on hold since preoperatively surgery will decide when patient is safe to resume anticoagulation (5) Depression: Qualifiers: Depression Type: major depressive disorder Major depression recurrence: unspecified whether recurrent Active/Remission status: remission status unspecified Qualified Code(s): F32.9 - Major depressive disorder, single episode, unspecified Code(s): F32.A - Depression, unspecified Status: Acute Assessment and Plan: restart escitalopram (6) Seizure disorder: Code(s): G40.909 - Epilepsy, unspecified, not intractable, without status epilepticus Status: Acute Assessment and Plan: seizure precautions switch PO keppra to IV until patient is reliably taking oral medications no seizure activity reported change to Po keppra Medical Record Review I have reviewed the following patient records and this information was taken into consideration when formulating the assessment and plan.: previous labs, previous ER visits and previous hospitalizations Consultations Consultations: I have discussed the care of this pt with the consulting providers. Subjective Date/time seen: 10/20/25 13:47 Interval history: Patient seen for a follow up visit. Patient lying in bed, in no acute distress. Patient denies pain. Patient had modified barium swallow study today and is on a minced and moist diet. Patient was able to tolerate regular diet, however she does not have her dentures with her. Patient ate some of her lunch per nursing staff. Patient continues on PPN, surgery will discontinue once patient is tolerating diet. Change Keppra to pill form. PT/OT ordered. Review of Systems Review of Systems: ROS unobtainable: Yes unobtainable due to mental status Exam Const: General: comfortable and no acute distress Other: alert, answers yes and no to questions HENMT: Face/Nose/Sinus: Normal nares present Mouth: Yes moist mucous membranes Eyes: General: appearance normal, both eyes and all related structures Sclera: sclerae normal Pupils: Equal, round and reactive pupils present Neck: Neck: supple Resp: Effort & Inspection: normal respiratory effort Auscultation: clear to auscultation bilaterally Cardio: Rate: tachycardic Rhythm: regular rhythm GI: GI Palp: Yes Soft to palpation Other: hypoactive bowel sounds, midline surgical incision with noah, ostomy closure site with noah Urinary Catheter: Urinary Catheter: patent and draining and urine clear Skin: General skin exam: normal color and no rashes or lesions noted Neuro: Other: alert, giving yes and no answers to questions, moving all extremities spontaneously Extrem: General: normal to inspection Objective Data Vital Signs Vital Signs: Vital Signs - 24 hr 10/19/25 14:00 10/19/25 16:00 10/19/25 20:00 Temperature 98.0 F Pulse Rate 66 76 Respiratory Rate 18 Blood Pressure 135/64 Pulse Oximetry 100 Oxygen Delivery Room Air 10/19/25 20:00 10/19/25 21:00 10/20/25 00:00 Temperature 97.5 F L Pulse Rate 77 72 76 Respiratory Rate 16 Blood Pressure 143/66 H Pulse Oximetry 100 Oxygen Delivery 10/20/25 04:00 10/20/25 05:05 10/20/25 08:00 Temperature 96.4 F L Pulse Rate 85 72 Respiratory Rate 20 Blood Pressure 139/69 Pulse Oximetry 100 Oxygen Delivery Room Air 10/20/25 08:00 Temperature Pulse Rate 80 Respiratory Rate Blood Pressure Pulse Oximetry Oxygen Delivery Intake/Output Intake/Output: Intake & Output 10/17/25 10/18/25 10/19/25 10/20/25 23:59 23:59 23:59 23:59 Intake Total 1733.3 1000 1250 1310 Output Total 438 708 0398 2125 Balance 1083.3 078 -010 -911 Meds/Results Medications: Active Medications Generic Name Dose Route Start Last Admin Trade Name Freq PRN Reason Stop Dose Admin Acetaminophen 650 mg 10/15/25 18:00 10/20/25 12:16 Acetaminophen 325 Mg Tablet PO 650 mg Q6HR JAYDEN Administration Alvimopan 12 mg 10/16/25 21:00 10/20/25 08:13 Alvimopan 12 Mg Capsule PO 10/23/25 20:59 12 mg Q12HR JAYDEN Administration Amlodipine Besylate 10 mg 10/16/25 09:00 Amlodipine Besylate 10 Mg Tablet PO On Hold: 10/16/25 09:00 DAILY JAYDEN Aspirin 81 mg 10/16/25 09:00 10/20/25 08:13 Aspirin 81 Mg Enteric Tablet PO 81 mg DAILY JAYDEN Administration Enoxaparin Sodium 40 mg 10/16/25 09:00 10/20/25 08:13 Enoxaparin 40 Mg/0.4 Ml Syringe SUB-Q 40 mg DAILY JAYDEN Administration Escitalopram Oxalate 10 mg 10/16/25 09:00 10/20/25 08:13 Escitalopram Oxalate 10 Mg Tablet PO 10 mg DAILY JAYDEN Administration Escitalopram Oxalate 5 mg 10/16/25 09:00 10/20/25 08:13 Escitalopram Oxalate 5 Mg Tablet PO 5 mg DAILY JAYDEN Administration Hydromorphone HCl 0.5 mg 10/15/25 17:04 10/18/25 10:46 Hydromorphone Hcl Inj (*Crx) 1 Mg/Ml Syr IV PUSH 0.5 mg Q2H PRN Administration Breakthrough Pain Rated 4-6 or NPO Dextrose 1,000 mls @ 50 mls/hr 10/18/25 11:50 Dextrose 10% IV CONT .Q20H PRN if PN is interrupted Amino Acids/Electrolytes/Dextrose 1,000 mls @ 80 mls/hr 10/18/25 14:00 10/20/25 05:20 Clinimix E 4.25%/5% Solution IV CONT 80 mls/hr .[id number] JAYDEN Administration Protocol Fat Emulsion Intravenous 250 mls @ 20.833 mls/hr 10/18/25 14:00 10/20/25 13:39 Lipids 20% IVPB 20.83 mls/hr Q24H JAYDEN Administration Levetiracetam 1,500 mg 10/19/25 00:15 10/20/25 08:13 Levetiracetam Oral [place] 500 Mg/5 Ml Udc BY MOUTH 1,500 mg Q12HR JAYDEN Administration Miscellaneous Information 1 each 10/19/25 00:01 Please Renew Clinamix. Per [employer] Procedure, It Will Discontinue If Not Renewed. XX 11/18/25 00:00 CLARIFY JAYDEN Naloxone HCl 0.1 mg 10/15/25 17:04 Naloxone Hcl 0.4 Mg/Ml Vial IV PUSH Q2M PRN Opiate Reversal Ondansetron HCl 4 mg 10/15/25 17:04 Ondansetron Inj 4 Mg/2 Ml Vial IV PUSH Q4H PRN Nausea And Vomiting Oxycodone HCl 2.5 mg 10/15/25 17:04 10/19/25 10:06 Oxycodone Hcl (*Crx) 2.5 Mg Tab Ir PO 2.5 mg Q4H PRN Administration Pain Rated 4-6 Polyethylene Glycol 17 gm 10/16/25 09:00 10/20/25 13:46 Polyethylene Glycol 3350 17 Gm Powd.Pack PO Not Given DAILY JAYDEN Potassium Chloride 10 meq 10/16/25 09:00 10/20/25 08:13 Potassium Chloride 10 Meq Er Tablet PO 10 meq DAILY JAYDEN Administration Primidone 250 mg 10/15/25 17:10 10/20/25 12:16 Primidone 250 Mg Tablet PO 250 mg QID JAYDEN Administration Topiramate 25 mg 10/15/25 21:00 10/19/25 22:29 Topiramate 25 Mg Tablet PO 25 mg HS JAYDEN Administration Radiology Results: ITS Impressions Modified Barium Swallow 10/20/25 10:35 IMPRESSION: No aspiration observed. See speech therapist's note for complete evaluation. Labs Labs: Laboratory Results - last 24 hr 10/19/25 10/20/25 10/20/25 17:18 00:10 05:25 WBC 4.9 RBC 2.76 L Hgb 8.3 L Hct 25.5 L MCV 92.4 MCH 30.1 MCHC 32.5 RDW 14.8 H Plt Count 200 MPV 10.7 H Immature Gran % (Auto) 0.4 Neut % (Auto) 66.8 Lymph % (Auto) 21.6 [place] % (Auto) 9.2 H Eos % (Auto) 1.8 Baso % (Auto) 0.2 Lymph # (Auto) 1.06 [place] # (Auto) 0.5 Eos # (Auto) 0.1 Baso # (Auto) 0.0 Abs Immat Gran (auto) 0.02 Absolute Neuts (auto) 3.3 Absolute Nucleated RBC 0.000 Nucleated RBC % 0.0 PT 13.9 INR 1.1 APTT 35.2 Sodium 134 L Potassium 3.5 Chloride 105 Carbon Dioxide 26 Anion Gap 3 L BUN 7 Creatinine 0.50 L Estim Creat Clear Calc 90 Estimated GFR > 60 Glucose 102 POC Capillary Glucose 126 H 150 H Calcium 8.2 L Phosphorus 3.1 Magnesium 1.9 Transferrin 106 L Total Bilirubin 0.4 AST 22 ALT 24 Alkaline Phosphatase 142 H Total Protein 6.6 Albumin 2.8 L 10/20/25 12:26 WBC RBC Hgb Hct MCV MCH MCHC RDW Plt Count MPV Immature Gran % (Auto) Neut % (Auto) Lymph % (Auto) [place] % (Auto) Eos % (Auto) Baso % (Auto) Lymph # (Auto) [place] # (Auto) Eos # (Auto) Baso # (Auto) Abs Immat Gran (auto) Absolute Neuts (auto) Absolute Nucleated RBC Nucleated RBC % PT INR APTT Sodium Potassium Chloride Carbon Dioxide Anion Gap BUN Creatinine Estim Creat Clear Calc Estimated GFR Glucose POC Capillary Glucose 115 H Calcium Phosphorus Magnesium Transferrin Total Bilirubin AST ALT Alkaline Phosphatase Total Protein Albumin Quality VTE Prophylaxis VTE prophylaxis: pharmacologic ordered
[2025-10-20] MEDS: TOPIRAMATE 25 MG TABLET PO (22:09)
[2025-10-21] VITALS (9 sets, daily range): BP systolic 113–136; BP diastolic 64–71; PULSE 82–96; RESP 14–16; TEMP 36–36.7; O2SAT 100
[2025-10-21] MEDS: ACETAMINOPHEN 325 MG TABLET 650 MG PO ×3 (05:19→17:06)
[2025-10-21] MEDS: AMINO ACIDS 4.25%/D5W/LYTES/CA 1,000 ML 80 ML IV CONT (05:19)
[2025-10-21 06:47] LABS: Anion Gap 1 mmol/L (4-12); Blood Urea Nitrogen 12 mg/dL (7-17); Calcium 8.4 mg/dL (8.4-10.2); Carbon Dioxide 26 mmol/L (22-30); Chloride 106 mmol/L (98-107); Estimated CRCL calculation 94 ml/min; Estimated Glomerular Filt Rate > 60; Glucose 108 mg/dL (65-110); Potassium 3.8 mmol/L (3.4-5.0); Sodium 133 mmol/L (137-145)
[2025-10-21] MEDS: ASPIRIN 81 MG ENTERIC TABLET PO (08:37)
[2025-10-21] MEDS: ESCITALOPRAM OXALATE 10 MG TABLET PO (08:38)
[2025-10-21] MEDS: ESCITALOPRAM OXALATE 5 MG TABLET PO (08:38)
[2025-10-21] MEDS: POTASSIUM CHLORIDE 10 MEQ ER TABLET PO (08:39)
[2025-10-21] MEDS: ENOXAPARIN 40 MG/0.4 ML SYRINGE SUB-Q (08:39)
[2025-10-21] MEDS: PRIMIDONE 250 MG TABLET PO ×4 (08:39→20:57)
[2025-10-21] MEDS: oxyCODONE HCL (*CRX) 2.5 MG TAB IR PO (09:01)
--- NOTE | 2025-10-21 11:20 | PC.NURSE ---
Ivet CHAWLA notified of holding am stool softners due to a large loose stool overnight.
--- NOTE | 2025-10-21 12:08 | P.PNIM_ITS ---
Assessment and Plan Assessment and Plan (1) Status post colostomy takedown: Code(s): Z98.890 - Other specified postprocedural states Status: Acute Assessment and Plan: status post ostomy takedown per general surgery patient not attempting to drink, IV fluids, started on PPN by surgery team pain control PT/OT once patient is participating in care ST consult as patient is not following commands or speaking, she is alert, they will see her again today to reassess patient has done this prior with surgery per records review and per family wbc improved patient is alert and answering questions today, ST following to determine when to advance diet patient has had multiple bowel movements the last two days continue to hold anticoagulation until cleared from surgical standpoint patient had modified barium swallow 10/20 and no aspiration detected minced and moist diet due to not having dentures with patient PPN stopped, patient on diet and supplements PT/OT ordered with plans for patient to return to [place] on discharge AM labs (2) Sinus tachycardia: Code(s): R00.0 - Tachycardia, unspecified Status: Acute Assessment and Plan: s/p IV fluid boluses, continue maintenance IV fluids unclear if due to pain as patient will not talk and has not responded to pain during exam pain medication per nursing if patient appears uncomfortable telemetry monitoring HR now within normal range, appears resolved (3) Hypertension: Qualifiers: Hypertension type: primary hypertension Qualified Code(s): I10 - Essential (primary) hypertension Code(s): I10 - Essential (primary) hypertension Status: Acute Assessment and Plan: hold home amlodipine until patient taking oral intake blood pressures stable monitor and add PRN medication if needed (4) custodial current use of anticoagulant: 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): 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 Status: Acute Assessment and Plan: patient's Eliquis on hold since preoperatively surgery will decide when patient is safe to resume anticoagulation (5) Depression: Qualifiers: Depression Type: major depressive disorder Major depression recurrence: unspecified whether recurrent Active/Remission status: remission status unspecified Qualified Code(s): F32.9 - Major depressive disorder, single episode, unspecified Code(s): F32.A - Depression, unspecified Status: Acute Assessment and Plan: restart escitalopram (6) Seizure disorder: Code(s): G40.909 - Epilepsy, unspecified, not intractable, without status epilepticus Status: Acute Assessment and Plan: seizure precautions switch PO keppra to IV until patient is reliably taking oral medications no seizure activity reported change to Po keppra Medical Record Review I have reviewed the following patient records and this information was taken into consideration when formulating the assessment and plan.: previous labs, previous ER visits and previous hospitalizations Consultations Consultations: I have discussed the care of this pt with the consulting providers. Subjective Date/time seen: 10/21/25 12:08 Interval history: Patient seen for a follow up visit. Patient lying in bed, in no acute distress. Patient denies pain. General surgery is managing patient. PPN stopped now that patient is tolerating oral intake. Patient continues with loose bowel movements. Patient has PT/OT ordered, previous baseline was wheelchair bound. Plan for discharge is to return to longterm with possible SNF placement. Review of Systems Review of Systems: ROS unobtainable: Yes unobtainable due to mental status Exam Const: General: comfortable and no acute distress Other: alert, answers yes and no to questions HENMT: Face/Nose/Sinus: Normal nares present Mouth: Yes moist mucous membranes Eyes: General: appearance normal, both eyes and all related structures Sclera: sclerae normal Pupils: Equal, round and reactive pupils present Neck: Neck: supple Resp: Effort & Inspection: normal respiratory effort Auscultation: clear to auscultation bilaterally Cardio: Rate: tachycardic Rhythm: regular rhythm GI: GI Palp: Yes Soft to palpation Other: hypoactive bowel sounds, midline surgical incision with noah, ostomy closure site with noah Urinary Catheter: Urinary Catheter: patent and draining and urine clear Skin: General skin exam: normal color and no rashes or lesions noted Neuro: Other: alert, giving yes and no answers to questions, moving all extremities spontaneously Extrem: General: normal to inspection Objective Data Vital Signs Vital Signs: Vital Signs - 24 hr 10/20/25 14:00 10/20/25 16:00 10/20/25 20:00 Temperature 97.3 F L Pulse Rate 79 77 Respiratory Rate 21 H Blood Pressure 143/69 H Pulse Oximetry 100 Oxygen Delivery Room Air 10/20/25 20:00 10/20/25 22:00 10/21/25 00:00 Temperature 98.0 F Pulse Rate 84 85 82 Respiratory Rate 16 Blood Pressure 138/74 Pulse Oximetry 100 Oxygen Delivery 10/21/25 04:00 10/21/25 06:00 10/21/25 08:00 Temperature 97.6 F Pulse Rate 90 90 Respiratory Rate 14 Blood Pressure 136/71 Pulse Oximetry 100 100 Oxygen Delivery Room Air 10/21/25 08:00 Temperature Pulse Rate 89 Respiratory Rate Blood Pressure Pulse Oximetry Oxygen Delivery Intake/Output Intake/Output: Intake & Output 10/18/25 10/19/25 10/20/25 10/21/25 23:59 23:59 23:59 23:59 Intake Total 1000 1250 2268 1205 Output Total 650 1950 2125 1400 Balance 350 -700 143 -195 Meds/Results Medications: Active Medications Generic Name Dose Route Start Last Admin Trade Name Freq PRN Reason Stop Dose Admin Acetaminophen 650 mg 10/15/25 18:00 10/21/25 05:19 Acetaminophen 325 Mg Tablet PO 650 mg Q6HR JAYDEN Administration Alvimopan 12 mg 10/16/25 21:00 10/21/25 11:20 Alvimopan 12 Mg Capsule PO 10/23/25 20:59 Not Given Q12HR [facility] Amlodipine Besylate 10 mg 10/16/25 09:00 Amlodipine Besylate 10 Mg Tablet PO On Hold: 10/16/25 09:00 DAILY JAYDEN Aspirin 81 mg 10/16/25 09:00 10/21/25 08:37 Aspirin 81 Mg Enteric Tablet PO 81 mg DAILY [facility] Administration Enoxaparin Sodium 40 mg 10/16/25 09:00 10/21/25 08:39 Enoxaparin 40 Mg/0.4 Ml Syringe SUB-Q 40 mg DAILY JAYDEN Administration Escitalopram Oxalate 10 mg 10/16/25 09:00 10/21/25 08:38 Escitalopram Oxalate 10 Mg Tablet PO 10 mg DAILY JAYDEN Administration Escitalopram Oxalate 5 mg 10/16/25 09:00 10/21/25 08:38 Escitalopram Oxalate 5 Mg Tablet PO 5 mg DAILY JAYDEN Administration Hydromorphone HCl 0.5 mg 10/15/25 17:04 10/18/25 10:46 Hydromorphone Hcl Inj (*Crx) 1 Mg/Ml Syr IV PUSH 0.5 mg Q2H PRN Administration Breakthrough Pain Rated 4-6 or NPO Levetiracetam 1,500 mg 10/20/25 21:00 10/21/25 08:39 Levetiracetam 500 Mg Tablet PO 1,500 mg Q12HR JAYDEN Administration Miscellaneous Information 1 each 10/19/25 00:01 Please Renew Clinamix. Per [employer] Procedure, It Will Discontinue If Not Renewed. XX 11/18/25 00:00 CLARIFY JAYDEN Naloxone HCl 0.1 mg 10/15/25 17:04 Naloxone Hcl 0.4 Mg/Ml Vial IV PUSH Q2M PRN Opiate Reversal Ondansetron HCl 4 mg 10/15/25 17:04 Ondansetron Inj 4 Mg/2 Ml Vial IV PUSH Q4H PRN Nausea And Vomiting Oxycodone HCl 2.5 mg 10/15/25 17:04 10/21/25 09:01 Oxycodone Hcl (*Crx) 2.5 Mg Tab Ir PO 2.5 mg Q4H PRN Administration Pain Rated 4-6 Polyethylene Glycol 17 gm 10/16/25 09:00 10/21/25 11:20 Polyethylene Glycol 3350 17 Gm Powd.Pack PO Not Given DAILY JAYDEN Potassium Chloride 10 meq 10/16/25 09:00 10/21/25 08:39 Potassium Chloride 10 Meq Er Tablet PO 10 meq DAILY JAYDEN Administration Primidone 250 mg 10/15/25 17:10 10/21/25 08:39 Primidone 250 Mg Tablet PO 250 mg QID JAYDEN Administration Topiramate 25 mg 10/15/25 21:00 10/20/25 22:09 Topiramate 25 Mg Tablet PO 25 mg HS JAYDEN Administration Radiology Results: ITS Impressions Modified Barium Swallow 10/20/25 10:35 IMPRESSION: No aspiration observed. See speech therapist's note for complete evaluation. Labs Labs: Laboratory Results - last 24 hr 10/20/25 10/20/25 10/21/25 12:26 18:01 00:22 Sodium Potassium Chloride Carbon Dioxide Anion Gap BUN Creatinine Estim Creat Clear Calc Estimated GFR Glucose POC Capillary Glucose 115 H 118 H 139 H Calcium Phosphorus 10/21/25 10/21/25 05:08 05:29 Sodium 133 L Potassium 3.8 Chloride 106 Carbon Dioxide 26 Anion Gap 1 L BUN 12 D Creatinine 0.49 L Estim Creat Clear Calc 94 Estimated GFR > 60 Glucose 108 POC Capillary Glucose 130 H Calcium 8.4 Phosphorus 3.7 Quality VTE Prophylaxis VTE prophylaxis: pharmacologic ordered
--- NOTE | 2025-10-21 12:11 | PCNFU ---
Nutrition Follow-Up Complete: Inadequate energy intake related to previous NPO status as evidenced by need for PPN to be initated. Goal:Meet estimated needs Transition to PO diet and decreased PPN Pt progressing towards goal Pt current nutrition is Minced and moist level 5, Ensure shakes BID. PPN running at 80ml/hr. Nutrition recommendation: continue with current plan of care. Last recorded weight is 88.1 kg. Bowel Motility: +BM 10/20 Labs Reviewed: Na:133, Cr:0.49, Glu:130 Meds Noted: KCL, lovenox, miralax Skin: no pressure injuries Additional Notes: Pt started on a minced and moist level 5 diet per speech recommendations, intake 10-25%. PPN continues at 80ml/hr and providing [id number], 82g protein. Recommend to decrease PPN rate as PO intake picks up. Monitor orders, plan of care, intake, wt, labs. Follow up every Monday and Monday.
--- NOTE | 2025-10-21 13:22 | P.PNGS_ITS ---
Progress Note: A&P Assessment and Plan (1) Status post colostomy takedown: Code(s): Z98.890 - Other specified postprocedural states Status: Acute Assessment and Plan: * POD6 and doing well. Bowels are moving and she is tolerating her minced/moist diet. Will stop her PPN. * Incisions healing well. Will plan to remove noah in 1 week during her follow-up. * Continue PT/OT. * Remove Post catheter * Plan to discharge back to the half-way tomorrow. CC also sent an auth for possible SNF at [place]. 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 Continue minced and moist diet with supplements Plan Discussed patient's case and plan of care with Dr. Coley. Subjective Subjective Date/Time Seen: 10/21/25 13:22 Post Op day: 6 (Open takedown of descending colostomy with partial colectomy and colorectal anastomosis, Ileal resection with [id number] anastomosis) Patient reports: no new complaints, tolerating a regular diet, flatus, bowel movement (x2) and afebrile Interval history: Patient seen today. Reports having some back pain due to her positioning. No abdominal pain, nausea, or vomiting. She reports tolerating her meals well. Nursing states she ate well for breakfast this am. No acute changes overnight. Exam Const: General: comfortable and no acute distress GI: Inspection: non-distended and incision (midline and LLQ incisions are dry and noah intact) GI Palp: Yes Soft to palpation, No Tenderness to palpation present (GI), No Guarding due to palpation present (GI) and No Rebound tenderness present Auscultation: normal bowel sounds Objective Data Vital Signs Vital Signs: Vital Signs - 24 hr 10/20/25 14:00 10/20/25 16:00 10/20/25 20:00 Temperature 97.3 F L Pulse Rate 79 77 Respiratory Rate 21 H Blood Pressure 143/69 H Pulse Oximetry 100 Oxygen Delivery Room Air 10/20/25 20:00 10/20/25 22:00 10/21/25 00:00 Temperature 98.0 F Pulse Rate 84 85 82 Respiratory Rate 16 Blood Pressure 138/74 Pulse Oximetry 100 Oxygen Delivery 10/21/25 04:00 10/21/25 06:00 10/21/25 08:00 Temperature 97.6 F Pulse Rate 90 90 Respiratory Rate 14 Blood Pressure 136/71 Pulse Oximetry 100 100 Oxygen Delivery Room Air 10/21/25 08:00 10/21/25 13:01 Temperature Pulse Rate 89 86 Respiratory Rate Blood Pressure Pulse Oximetry Oxygen Delivery Intake/Output Intake/Output: Intake & Output 10/18/25 10/19/25 10/20/25 10/21/25 23:59 23:59 23:59 23:59 Intake Total 1000 1250 2268 1205 Output Total 650 1950 2125 1400 Balance 350 -700 143 -195 Meds/Results Medications: Active Medications Generic Name Dose Route Start Last Admin Trade Name Ckq PRN Reason Stop Dose Admin Acetaminophen 650 mg 10/15/25 18:00 10/21/25 12:08 Acetaminophen 325 Mg Tablet PO 650 mg Q6HR [facility] Administration Alvimopan 12 mg 10/16/25 21:00 10/21/25 11:20 Alvimopan 12 Mg Capsule PO 10/23/25 20:59 Not Given Q12HR [facility] Amlodipine Besylate 10 mg 10/16/25 09:00 Amlodipine Besylate 10 Mg Tablet PO On Hold: 10/16/25 09:00 DAILY JAYDEN Aspirin 81 mg 10/16/25 09:00 10/21/25 08:37 Aspirin 81 Mg Enteric Tablet PO 81 mg DAILY [facility] Administration Enoxaparin Sodium 40 mg 10/16/25 09:00 10/21/25 08:39 Enoxaparin 40 Mg/0.4 Ml Syringe SUB-Q 40 mg DAILY JAYDEN Administration Escitalopram Oxalate 10 mg 10/16/25 09:00 10/21/25 08:38 Escitalopram Oxalate 10 Mg Tablet PO 10 mg DAILY JAYDEN Administration Escitalopram Oxalate 5 mg 10/16/25 09:00 10/21/25 08:38 Escitalopram Oxalate 5 Mg Tablet PO 5 mg DAILY JAYDEN Administration Hydromorphone HCl 0.5 mg 10/15/25 17:04 10/18/25 10:46 Hydromorphone Hcl Inj (*Crx) 1 Mg/Ml Syr IV PUSH 0.5 mg Q2H PRN Administration Breakthrough Pain Rated 4-6 or NPO Levetiracetam 1,500 mg 10/20/25 21:00 10/21/25 08:39 Levetiracetam 500 Mg Tablet PO 1,500 mg Q12HR JAYDEN Administration Miscellaneous Information 1 each 10/19/25 00:01 Please Renew Clinamix. Per [employer] Procedure, It Will Discontinue If Not Renewed. XX 11/18/25 00:00 CLARIFY JAYDEN Naloxone HCl 0.1 mg 10/15/25 17:04 Naloxone Hcl 0.4 Mg/Ml Vial IV PUSH Q2M PRN Opiate Reversal Ondansetron HCl 4 mg 10/15/25 17:04 Ondansetron Inj 4 Mg/2 Ml Vial IV PUSH Q4H PRN Nausea And Vomiting Oxycodone HCl 2.5 mg 10/15/25 17:04 10/21/25 09:01 Oxycodone Hcl (*Crx) 2.5 Mg Tab Ir PO 2.5 mg Q4H PRN Administration Pain Rated 4-6 Polyethylene Glycol 17 gm 10/16/25 09:00 10/21/25 11:20 Polyethylene Glycol 3350 17 Gm Powd.Pack PO Not Given DAILY JAYDEN Potassium Chloride 10 meq 10/16/25 09:00 10/21/25 08:39 Potassium Chloride 10 Meq Er Tablet PO 10 meq DAILY JAYDEN Administration Primidone 250 mg 10/15/25 17:10 10/21/25 12:08 Primidone 250 Mg Tablet PO 250 mg QID JAYDEN Administration Topiramate 25 mg 10/15/25 21:00 10/20/25 22:09 Topiramate 25 Mg Tablet PO 25 mg HS JAYDEN Administration Radiology Results: ITS Impressions Modified Barium Swallow 10/20/25 10:35 IMPRESSION: No aspiration observed. See speech therapist's note for complete evaluation. Labs Labs: Laboratory Results - last 24 hr 10/20/25 10/21/25 10/21/25 18:01 00:22 05:08 Sodium Potassium Chloride Carbon Dioxide Anion Gap BUN Creatinine Estim Creat Clear Calc Estimated GFR Glucose POC Capillary Glucose 118 H 139 H 130 H Calcium Phosphorus 12/16/25 12/16/25 05:29 13:05 Sodium 133 L Potassium 3.8 Chloride 106 Carbon Dioxide 26 Anion Gap 1 L BUN 12 D Creatinine 0.49 L Estim Creat Clear Calc 94 Estimated GFR > 60 Glucose 108 POC Capillary Glucose 124 H Calcium 8.4 Phosphorus 3.7
[2025-10-21] MEDS: TOPIRAMATE 25 MG TABLET PO (20:56)
[2025-10-21] MEDS: APIXABAN 5 MG TABLET PO (20:57)
[2025-10-22] VITALS (9 sets, daily range): BP systolic 123–129; BP diastolic 60–67; PULSE 82–96; RESP 16–18; TEMP 36.1–37; O2SAT 100
[2025-10-22] MEDS: ACETAMINOPHEN 325 MG TABLET 650 MG PO ×3 (00:52→17:06)
[2025-10-22] MEDS: oxyCODONE HCL (*CRX) 2.5 MG TAB IR PO ×2 (08:25→12:28)
[2025-10-22] MEDS: APIXABAN 5 MG TABLET PO ×2 (08:27→22:03)
[2025-10-22] MEDS: ESCITALOPRAM OXALATE 10 MG TABLET PO (08:27)
[2025-10-22] MEDS: ASPIRIN 81 MG ENTERIC TABLET PO (08:27)
[2025-10-22] MEDS: POTASSIUM CHLORIDE 10 MEQ ER TABLET PO (08:27)
[2025-10-22] MEDS: ESCITALOPRAM OXALATE 5 MG TABLET PO (08:27)
[2025-10-22] MEDS: PRIMIDONE 250 MG TABLET PO ×4 (08:27→22:03)
[2025-10-22] MEDS: ENOXAPARIN 40 MG/0.4 ML SYRINGE SUB-Q (08:51)
--- NOTE | 2025-10-22 12:40 | P.DS_ITS ---
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 She recovered from this and was remaining in a [facility] facility. At times the ostomy was having problems with the appliance sealing. She was also very distraught with the colostomy and wanted it reversed. 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 Discussions were made with the patient and family that this is going to be a very detailed and complex procedure. The patient was still wishing to proceed. Decision was made to proceed with open takedown of colostomy and small-bowel resection. Hospital Course: Patient was admitted to the hospital on 10/15/25 for scheduled open takedown of descending colostomy with partial colectomy and colorectal anastomosis, as well as ileal resection with [id number] anastomosis. Ureteral stents were placed by Dr. Harding, and removed at the end of the procedure. Patient tolerated the procedure well and was taken to recovery in good condition. Hospitalist team was consulted for medical management. Patient was tachycardic the following morning, otherwise doing well. Treated with IV fluid bolus. Bedside swallow study was attempted, but patient was unable to respond or follow directions. Patient remained aphasic, but similar to how she responded to the previous surgery. Patient was started on PPN for IV nutrition, as she was unable to start a regular diet. Throughout patient's hospital stay she worked with speech therapy and was eventually advanced to a minced and moist diet. Physical therapy and occupational therapy was continued. Patient was put on a prophylactic Lovenox being switched back to her home dose of Eliquis. she did have a mild hypokalemia on 10/19, which was repleted with KCL. WBC was mildly elevated after surgery, but quickly normalized. Post catheter was removed prior to discharge. Patient surgically stable for discharge to [facility] or SNF side if approved. Status at Discharge Functional status at discharge: wheelchair bound Overall status at discharge: patient is back to baseline Time Spent with Patient Time attestation: Total time spent providing and/or coordinating discharge services: Time spent: Greater than 30 minutes Exam Const: General: comfortable and no acute distress Neck: Neck: supple and no JVD Resp: Effort & Inspection: normal respiratory effort Cardio: Rate: regular rate GI: Inspection: non-distended GI Palp: Yes Soft to palpation, Yes Tender ness to palpation present (GI) and No Guarding due to palpation present (GI) Other: Incision clean and dry with kyrie intact. There is some dryness to left sided abdominal incision. No surrounding redness. No signs of infection. Skin: General skin exam: normal color and no rashes or lesions noted Extrem: General: normal to inspection Psych: Other: Patient mentation at baseline DS: Data Data Completed and Pending Completed studies during hospitalization: Pending at discharge 10/15/25 09:32 Surgical [PTH] Routine Surgical [PTH] Routine Labs on day of discharge: Labs from last 24 hours 10/22/25 10/22/25 10/22/25 11:28 05:35 00:18 POC Capillary Glucose 117 H 97 114 H 10/21/25 10/21/25 16:45 13:05 POC Capillary Glucose 93 124 H Procedures/Treatments: Procedures Operation Date: 10/15/25 07:30 Actual Procedure Side Surgeon p Open Colostomy Take Down, Small Bowel Resection Not Applicable Antonio Coley, DO s Stent Placement for Abdominal Surgery Bilateral Suhail Harding MD Imaging Radiologist's impression: ITS Impressions Modified Barium Swallow 10/20/25 10:35 IMPRESSION: No aspiration observed. See speech therapist's note for complete evaluation. Discharge Plan Discharge Attending physician on discharge: Antonio Coley Consulting providers: Ledy Laird; Yanet Do Discharging Clinician: Kathy Farias Anticipated Discharge Date/Time: 10/22/25 12:36 Patient Disposition: [facility] Activity: may shower Diet: other - see discharge instructions Wound Care Instructions: follow printed instructions Discharge Instructions: * OK to shower. No soaking in a bath or other body of water for the next 4-6 weeks. * No heavy lifting greater than 10-15 pounds for the next 4-6 weeks. * Patient was evaluated by speech therapy while she was in the hospital. She had a modified barium swallow test on 10/20/2025. Speech therapy is recommending continuation of a minced and moist level 5 diet. * Keep regularly scheduled general surgery appointment on 10/27/25. Kyrie will be removed at this time. Call the office at with any questions or concerns. * Call the office or present to the emergency department if you develop and vomiting, fevers, worsening pain, redness, or increased drainage or bleeding from abdominal wounds. * Resume all home medications. * Continue physical and occupational therapy. Patient Instructions: Antibiotic Form, Apixaban (By mouth) Patient Language: Malay Stand Alone Forms: General Discharge Information Follow-up/Referrals: Antonio Coley DO [Physician, General Surgery] - Keep Reg. Scheduled Appt. Discharge Medications: Continued acetaminophen 500 mg capsule 1,000 mg PO Q6H PRN (Reason: fever or pain) primidone 250 mg tablet 250 mg PO QID aspirin 81 mg tablet,chewable 81 mg PO DAILY amlodipine 10 mg tablet 10 mg PO DAILY Patient Comments: QAM potassium chloride 10 mEq capsule, extended release 10 meq PO DAILY docusate sodium 100 mg capsule 100 mg PO BID polyethylene glycol 3350 [ClearLax] 17 gram/dose powder 17 g PO DAILY topiramate [Topamax] 25 mg tablet 25 mg PO HS oxycodone 5 mg tablet 5 mg PO Q8H PRN (Reason: pain) Qty: 10 0RF oxycodone 5 mg tablet 5 mg PO Q8H PRN (Reason: pain) Qty: 10 0RF Eliquis 5 mg tablet 5 mg PO Q12HR Qty: 60 0RF levetiracetam [Keppra] 250 mg tablet 1,500 mg PO BIDWM Qty: 60 0RF aspirin [Adult Low Dose Aspirin] 81 mg tablet,delayed release (DR/EC) 81 mg PO DAILY escitalopram oxalate 15 mg capsule 15 mg PO DAILY Patient Comments: QAM polyethylene glycol 3350 [Miralax] 17 gram/dose powder 17 g PO DAILY Discontinued metronidazole 500 mg tablet 500 mg PO .COMPLEX Qty: 3 0RF Rx Instructions: 500 mg orally at 1:00pm, 2:00pm, and 11:00pm the day before surgery; ciprofloxacin HCl 500 mg tablet 500 mg PO .COMPLEX Qty: 1 0RF Rx Instructions: 500 mg orally at 2:00pm the day before surgery; Date of admission: 10/15/25 17:04 Primary Care Provider: Julio Manriquez Admitting Provider: Antonio Coley Attending physician on admission: Antonio Coley Condition: Improved
[2025-10-22] MEDS: ALVIMOPAN 12 MG CAPSULE PO (22:03)
[2025-10-22] MEDS: TOPIRAMATE 25 MG TABLET PO (22:03)
[2025-10-23] VITALS (9 sets, daily range): BP systolic 99–124; BP diastolic 58–68; PULSE 78–96; RESP 14–20; TEMP 36.2–36.8; O2SAT 99–100
[2025-10-23] MEDS: ACETAMINOPHEN 325 MG TABLET 650 MG PO ×4 (00:30→18:10)
[2025-10-23 06:37] LABS: Platelet Count Result 233 k/mm3 (150-375)
[2025-10-23 06:56] LABS: Estimated CRCL calculation 73 ml/min; Estimated Glomerular Filt Rate > 60
[2025-10-23] MEDS: APIXABAN 5 MG TABLET PO (09:09)
[2025-10-23] MEDS: POTASSIUM CHLORIDE 10 MEQ ER TABLET PO (09:09)
[2025-10-23] MEDS: ESCITALOPRAM OXALATE 10 MG TABLET PO (09:09)
[2025-10-23] MEDS: ESCITALOPRAM OXALATE 5 MG TABLET PO (09:10)
[2025-10-23] MEDS: ENOXAPARIN 40 MG/0.4 ML SYRINGE SUB-Q (09:10)
[2025-10-23] MEDS: PRIMIDONE 250 MG TABLET PO ×4 (09:10→21:24)
[2025-10-23] MEDS: ASPIRIN 81 MG ENTERIC TABLET PO (09:10)
[2025-10-23] MEDS: ALVIMOPAN 12 MG CAPSULE PO (09:10)
--- NOTE | 2025-10-23 12:21 | PM.PNGS ---
Progress Note: A&P Assessment and Plan (1) Status post colostomy takedown: Code(s): Z98.890 - Other specified postprocedural states Status: Acute Assessment and Plan: Patient is surgically stable for discharge. Bowels are moving and she is tolerating her minced/moist diet. Incisions healing well. Will plan to remove noah at her follow-up appointment next week. CC is awaiting authorization for rehab on discharge. If denied, then she will return to [facility] care at [place]. 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 Coley. Subjective Subjective Date/Time Seen: 10/23/25 12:21 Post Op day: 7 (Open takedown of descending colostomy with partial colectomy and colorectal anastomosis, Ileal resection with [id number] anastomosis) Patient reports: no new complaints, tolerating a regular diet, voiding w/o difficulty, flatus, bowel movement and afebrile Interval history: No acute changes overnight. Patient is tolerating her diet and bowels are moving. Exam Const: General: comfortable and no acute distress Orientation/consciousness: patient oriented x3 GI: Inspection: non-distended and incision (dry and noah intact, no erythema or drainage) GI Palp: Yes Soft to palpation, No Tenderness to palpation present (GI), No Guarding due to palpation present (GI) and No Rebound tenderness present Auscultation: normal bowel sounds Objective Data Vital Signs Vital Signs: Vital Signs - 24 hr 10/22/25 14:00 10/22/25 16:00 10/22/25 20:00 Temperature 98.6 F Pulse Rate 92 89 82 Respiratory Rate 16 16 Blood Pressure 123/67 Pulse Oximetry 100 100 Oxygen Delivery Room Air 10/22/25 20:00 10/22/25 22:00 10/23/25 00:00 Temperature 97 F L Pulse Rate 82 82 85 Respiratory Rate 16 Blood Pressure 129/62 Pulse Oximetry 100 Oxygen Delivery 10/23/25 04:00 10/23/25 05:30 Temperature 97.1 F L Pulse Rate 78 78 Respiratory Rate 20 Blood Pressure 119/60 Pulse Oximetry 100 Oxygen Delivery Intake/Output Intake/Output: Intake & Output 10/20/25 10/21/25 10/22/25 10/23/25 23:59 23:59 23:59 23:59 Intake Total 2268 1305 750 150 Output Total 2125 1400 350 Balance 143 -95 400 150 Meds/Results Medications: Active Medications Generic Name Dose Route Start Last Admin Trade Name Freq PRN Reason Stop Dose Admin Acetaminophen 650 mg 10/15/25 18:00 10/23/25 05:32 Acetaminophen 325 Mg Tablet PO 650 mg Q6HR JAYDEN Administration Alvimopan 12 mg 10/16/25 21:00 10/23/25 09:10 Alvimopan 12 Mg Capsule PO 10/23/25 20:59 12 mg Q12HR JAYDEN Administration Amlodipine Besylate 10 mg 10/16/25 09:00 Amlodipine Besylate 10 Mg Tablet PO On Hold: 10/16/25 09:00 DAILY JAYDEN Apixaban 5 mg 10/21/25 21:00 10/23/25 09:09 Apixaban 5 Mg Tablet PO 5 mg Q12HR JAYDEN Administration Aspirin 81 mg 10/16/25 09:00 10/23/25 09:10 Aspirin 81 Mg Enteric Tablet PO 81 mg DAILY JAYDEN Administration Enoxaparin Sodium 40 mg 10/16/25 09:00 10/23/25 09:10 Enoxaparin 40 Mg/0.4 Ml Syringe SUB-Q 40 mg DAILY JAYDEN Administration Escitalopram Oxalate 10 mg 10/16/25 09:00 10/23/25 09:09 Escitalopram Oxalate 10 Mg Tablet PO 10 mg DAILY JAYDEN Administration Escitalopram Oxalate 5 mg 10/16/25 09:00 10/23/25 09:10 Escitalopram Oxalate 5 Mg Tablet PO 5 mg DAILY JAYDEN Administration Hydromorphone HCl 0.5 mg 10/15/25 17:04 10/18/25 10:46 Hydromorphone Hcl Inj (*Crx) 1 Mg/Ml Syr IV PUSH 0.5 mg Q2H PRN Administration Breakthrough Pain Rated 4-6 or NPO Levetiracetam 1,500 mg 10/20/25 21:00 10/23/25 09:09 Levetiracetam 500 Mg Tablet PO 1,500 mg Q12HR JAYDEN Administration Naloxone HCl 0.1 mg 10/15/25 17:04 Naloxone Hcl 0.4 Mg/Ml Vial IV PUSH Q2M PRN Opiate Reversal Ondansetron HCl 4 mg 10/15/25 17:04 Ondansetron Inj 4 Mg/2 Ml Vial IV PUSH Q4H PRN Nausea And Vomiting Oxycodone HCl 2.5 mg 10/15/25 17:04 10/22/25 12:28 Oxycodone Hcl (*Crx) 2.5 Mg Tab Ir PO 2.5 mg Q4H PRN Administration Pain Rated 4-6 Polyethylene Glycol 17 gm 10/16/25 09:00 10/23/25 09:09 Polyethylene Glycol 3350 17 Gm Powd.Pack PO 17 gm DAILY JAYDEN Administration Potassium Chloride 10 meq 10/16/25 09:00 10/23/25 09:09 Potassium Chloride 10 Meq Er Tablet PO 10 meq DAILY JAYDEN Administration Primidone 250 mg 10/15/25 17:10 10/23/25 09:10 Primidone 250 Mg Tablet PO 250 mg QID JYADEN Administration Topiramate 25 mg 10/15/25 21:00 10/22/25 22:03 Topiramate 25 Mg Tablet PO 25 mg HS JAYDEN Administration Radiology Results: ITS Impressions Modified Barium Swallow 10/20/25 10:35 IMPRESSION: No aspiration observed. See speech therapist's note for complete evaluation. Labs Labs: Laboratory Results - last 24 hr 10/22/25 10/23/25 10/23/25 16:55 00:29 05:34 Plt Count MPV Creatinine Estim Creat Clear Calc Estimated GFR POC Capillary Glucose 93 82 88 10/23/25 06:07 Plt Count 233 MPV 10.3 Creatinine 0.62 L Estim Creat Clear Calc 73 Estimated GFR > 60 POC Capillary Glucose
--- NOTE | 2025-10-23 13:11 | PM.EVENT ---
Event Note Event Note Event Note: Hospitalist team to sign off at this time while awaiting placement. Please feel free to re-consult if needed
--- NOTE | 2025-10-23 16:22 | PC.NURSE ---
Provider notified of pt having large bloody bowel movements x2. Awaiting return. Will continue to monitor.
[2025-10-23 17:25] LABS: Hematocrit 21.8 % (37.0-47.0)
[2025-10-23 17:29] LABS: Hemoglobin 6.9 g/dL (12.0-15.0)
--- NOTE | 2025-10-23 18:28 | PC.NURSE ---
Dr Coley notified this nurse to give one unit of PRBC's instead of two units.
[2025-10-23] MEDS: TOPIRAMATE 25 MG TABLET PO (21:24)
[2025-10-23] MEDS: SODIUM CHLORIDE 0.9% IV 250 ML 30 ML IV CONT (23:31)
[2025-10-23] MEDS: TUBING, BLOOD PLUM PUMP TUBING 1 EACH XX (23:31)
[2025-10-23] MEDS: oxyCODONE HCL (*CRX) 2.5 MG TAB IR PO (23:40)
[2025-10-24 00:39] VITALS: BP 106/57; PULSE 83; RESP 20; TEMP 36.2; O2SAT 100
[2025-10-24 02:00] VITALS: BP 118/67; PULSE 82; RESP 16; TEMP 36.4; O2SAT 100
[2025-10-24 05:49] VITALS: BP 114/57; PULSE 86; RESP 18; TEMP 36.7; O2SAT 100
[2025-10-24 06:15] LABS: Hematocrit 24.7 % (37.0-47.0); Hemoglobin 7.9 g/dL (12.0-15.0); Mean Corpuscular HGB Conc 32.0 g/dl (32-36); Mean Corpuscular Hemoglobin 30.2 pg (26-34); Mean Corpuscular Volume 94.3 fl (80-100); Platelet Count Result 207 k/mm3 (150-375); Red Blood Count 2.62 M/mm3 (4.2-5.4); White Blood Count 5.8 K/mm3 (4.5-10.0)
[2025-10-24 08:00] VITALS: BP 117/52
--- NOTE | 2025-10-24 08:57 | PCPTNOTE ---
The patient treatment was not able to be completed on 10/24/2025, patient not appropriate to be seen at this time due to GI bleed prior day. Will plan to continue treatment per plan of care.
[2025-10-24] MEDS: ASPIRIN 81 MG ENTERIC TABLET PO (08:58)
[2025-10-24] MEDS: ESCITALOPRAM OXALATE 10 MG TABLET PO (08:58)
[2025-10-24] MEDS: POTASSIUM CHLORIDE 10 MEQ ER TABLET PO (08:58)
[2025-10-24] MEDS: ESCITALOPRAM OXALATE 5 MG TABLET PO (08:58)
[2025-10-24] MEDS: PRIMIDONE 250 MG TABLET PO ×4 (08:58→20:46)
[2025-10-24] MEDS: PANTOPRAZOLE SODIUM IV 40 MG VIAL IV PUSH (09:01)
[2025-10-24] MEDS: oxyCODONE HCL (*CRX) 2.5 MG TAB IR PO (09:51)
--- NOTE | 2025-10-24 10:28 | PCOTNOTE ---
Per RN, Patient having an active GI bleed, having increased pain and low blood pressure this A.M. Patient unable to be seen or participate in therapy session
--- NOTE | 2025-10-24 10:33 | PCNFU ---
Nutrition Follow-Up Complete: Inadequate energy intake related to previous NPO status as evidenced by need for PPN to be initated. Meet estimated needs - Progressing slowly with goal. COntinue same goal Transition to PO diet and decreased PPN - Goal is met, PPN is off Goal: Pt current nutrition is Regular diet, Minced & moist L5, Ensure Plus HP BID (350 kcal, 20 g pro). Nutrition recommendation: No new recommendations. Continue current nutrition care plan and orders. Agree with orders Last recorded weight is 82.5 kg. Bowel Motility: +2 BMs 10/24 Labs Reviewed: Hgb 7.9, Hct 24.7 Meds Noted: Lovenox, miralax Skin: No skin issues Additional Notes: PPN has been stopped. Intakes on regular MML5 diet remain poor, 0-25%. Discharge planning to SNF in progress. Continue current orders. Monitor orders, plan of care, intake, wt, labs. Follow up every Monday and Monday.
[2025-10-24] MEDS: HYDROmorphone HCL INJ (*CRX) 1 MG/ML SYR 0.5 MG IV PUSH (11:19)
[2025-10-24 11:46] LABS: Hematocrit 25.9 % (37.0-47.0); Hemoglobin 8.0 g/dL (12.0-15.0)
--- NOTE | 2025-10-24 12:22 | P.PNGS_ITS ---
Progress Note: A&P Assessment and Plan (1) Status post colostomy takedown: Code(s): Z98.890 - Other specified postprocedural states Status: Acute Assessment and Plan: * Bowels are moving and she is tolerating her minced/moist diet. Patient was previously having bloody bowel movements that have since normalized. Continue to monitor. instructed nursing staff to call general surgery team if bloody bowel movements persist. * Incisions healing well. Will plan to remove noah tomorrow prior to discharge. * CC is awaiting authorization for rehab on discharge. If denied, then she will return to [facility] care at [place]. Surgically stable for discharge tomorrow if hemodynamically stable. (2) Anemia: Code(s): D64.9 - Anemia, unspecified Status: Acute Assessment and Plan: patient had several bloody bowel movements yesterday afternoon/ evening. He moglobin dropped to 6.0 and she was given a unit of packed red blood cells. Continue holding Eliquis. 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 Coley. Subjective Subjective Date/Time Seen: 10/24/25 12:22 Patient reports: no new complaints, bowel movement (bloody) and afebrile Interval history: Patient had several bloody bowel movements yesterday afternoon/evening. hemoglobin dropped to 6.9. Patient was given 1 unit of packed red blood cells. Since this time, patient's hemoglobin has continued to improve, now at 8.0. According to nurse reports, patient has since had normal bowel movements without signs of blood. Eliquis being held. Exam Const: General: comfortable and no acute distress GI: Inspection: non-distended Auscultation: normal bowel sounds Other: Incision clean and dry with noah intact. There is some dryness to left sided abdominal incision. No surrounding redness. No signs of infection. Objective Data Vital Signs Vital Signs: Vital Signs - 24 hr 10/23/25 14:00 10/23/25 18:19 10/23/25 19:26 Temperature 98.3 F 97.7 F Pulse Rate 80 96 93 Respiratory Rate 14 20 20 Blood Pressure 124/63 110/58 L 120/67 Pulse Oximetry 99 100 Oxygen Delivery 10/23/25 21:24 10/23/25 23:19 10/23/25 23:39 Temperature 98.0 F 98.0 F Pulse Rate 92 86 Respiratory Rate 16 14 Blood Pressure 116/68 99/67 L Pulse Oximetry 100 100 Oxygen Delivery Room Air 10/24/25 00:39 10/24/25 02:00 10/24/25 05:49 Temperature 97.1 F L 97.6 F 98.0 F Pulse Rate 83 82 86 Respiratory Rate 20 16 18 Blood Pressure 106/57 L 118/67 114/57 L Pulse Oximetry 100 100 100 Oxygen Delivery 10/24/25 08:00 10/24/25 08:00 Temperature Pulse Rate Respiratory Rate Blood Pressure 117/52 L Pulse Oximetry Oxygen Delivery Room Air Intake/Output Intake/Output: Intake & Output 10/21/25 10/22/25 10/23/25 10/24/25 23:59 23:59 23:59 23:59 Intake Total 1305 750 600 555 Output Total 1400 350 Balance -95 400 600 555 Meds/Results Medications: Active Medications Generic Name Dose Route Start Last Admin Trade Name Freq PRN Reason Stop Dose Admin Acetaminophen 650 mg 10/15/25 18:00 10/24/25 07:16 Acetaminophen 325 Mg Tablet PO Not Given Q6HR [facility] Amlodipine Besylate 10 mg 10/16/25 09:00 Amlodipine Besylate 10 Mg Tablet PO On Hold: 10/16/25 09:00 DAILY JAYDEN Apixaban 5 mg 10/21/25 21:00 10/23/25 09:09 Apixaban 5 Mg Tablet PO 5 mg On Hold: 10/23/25 18:24 Q12HR JAYDEN Administration Aspirin 81 mg 10/16/25 09:00 10/24/25 08:58 Aspirin 81 Mg Enteric Tablet PO 81 mg DAILY JAYDEN Administration Enoxaparin Sodium 40 mg 10/16/25 09:00 10/23/25 09:10 Enoxaparin 40 Mg/0.4 Ml Syringe SUB-Q 40 mg On Hold: 10/24/25 07:53 DAILY JAYDEN Administration Escitalopram Oxalate 10 mg 10/16/25 09:00 10/24/25 08:58 Escitalopram Oxalate 10 Mg Tablet PO 10 mg DAILY JAYDEN Administration Escitalopram Oxalate 5 mg 10/16/25 09:00 10/24/25 08:58 Escitalopram Oxalate 5 Mg Tablet PO 5 mg DAILY JAYDEN Administration Hydromorphone HCl 0.5 mg 10/15/25 17:04 10/24/25 11:19 Hydromorphone Hcl Inj (*Crx) 1 Mg/Ml Syr IV PUSH 0.5 mg Q2H PRN Administration Breakthrough Pain Rated 4-6 or NPO Levetiracetam 1,500 mg 10/20/25 21:00 10/24/25 08:58 Levetiracetam 500 Mg Tablet PO 1,500 mg Q12HR JAYDEN Administration Naloxone HCl 0.1 mg 10/15/25 17:04 Naloxone Hcl 0.4 Mg/Ml Vial IV PUSH Q2M PRN Opiate Reversal Ondansetron HCl 4 mg 10/15/25 17:04 Ondansetron Inj 4 Mg/2 Ml Vial IV PUSH Q4H PRN Nausea And Vomiting Oxycodone HCl 2.5 mg 10/15/25 17:04 10/24/25 09:51 Oxycodone Hcl (*Crx) 2.5 Mg Tab Ir PO 2.5 mg Q4H PRN Administration Pain Rated 4-6 Pantoprazole Sodium 40 mg 10/24/25 09:00 10/24/25 09:01 Pantoprazole Sodium Iv 40 Mg Vial IV PUSH 40 mg QAM JAYDEN Administration Polyethylene Glycol 17 gm 10/16/25 09:00 10/24/25 08:59 Polyethylene Glycol 3350 17 Gm Powd.Pack PO Not Given DAILY JAYDEN Potassium Chloride 10 meq 10/16/25 09:00 10/24/25 08:58 Potassium Chloride 10 Meq Er Tablet PO 10 meq DAILY JAYDEN Administration Primidone 250 mg 10/15/25 17:10 10/24/25 08:58 Primidone 250 Mg Tablet PO 250 mg QID JAYDEN Administration Topiramate 25 mg 10/15/25 21:00 10/23/25 21:24 Topiramate 25 Mg Tablet PO 25 mg HS JAYDEN Administration Radiology Results: ITS Impressions Modified Barium Swallow 10/20/25 10:35 IMPRESSION: No aspiration observed. See speech therapist's note for complete evaluation. Labs Labs: Laboratory Results - last 24 hr 10/23/25 10/23/25 10/23/25 11:48 16:58 17:14 WBC RBC Hgb 6.9 L* Hct 21.8 L MCV MCH MCHC RDW Plt Count MPV POC Capillary Glucose 92 94 Blood Type A Positive Antibody Screen Negative Crossmatch See Detail 10/23/25 10/24/25 10/24/25 23:15 05:58 11:41 WBC 5.8 RBC 2.62 L Hgb 7.9 L Hct 24.7 L MCV 94.3 MCH 30.2 MCHC 32.0 RDW 15.9 H Plt Count 207 MPV 9.9 POC Capillary Glucose 117 H 99 Blood Type Antibody Screen Crossmatch 10/24/25 11:42 WBC RBC Hgb 8.0 L Hct 25.9 L MCV MCH MCHC RDW Plt Count MPV POC Capillary Glucose Blood Type Antibody Screen Crossmatch
[2025-10-24] MEDS: ACETAMINOPHEN 325 MG TABLET 650 MG PO ×2 (13:07→17:54)
[2025-10-24 14:00] VITALS: BP 116/56; PULSE 80; RESP 18; TEMP 36.9; O2SAT 100
[2025-10-24 18:12] LABS: Hematocrit 25.1 % (37.0-47.0); Hemoglobin 8.0 g/dL (12.0-15.0)
[2025-10-24] MEDS: TOPIRAMATE 25 MG TABLET PO (20:46)
[2025-10-24 22:00] VITALS: BP 95/48; PULSE 77; RESP 16; TEMP 36.2; O2SAT 100
[2025-10-25] MEDS: ACETAMINOPHEN 325 MG TABLET 650 MG PO ×2 (05:37→12:35)
[2025-10-25 05:40] LABS: Hematocrit 24.2 % (37.0-47.0); Hemoglobin 7.6 g/dL (12.0-15.0); Mean Corpuscular HGB Conc 31.4 g/dl (32-36); Mean Corpuscular Hemoglobin 29.5 pg (26-34); Mean Corpuscular Volume 93.8 fl (80-100); Platelet Count Result 211 k/mm3 (150-375); Red Blood Count 2.58 M/mm3 (4.2-5.4); White Blood Count 5.5 K/mm3 (4.5-10.0)
[2025-10-25] MEDS: HYDROmorphone HCL INJ (*CRX) 1 MG/ML SYR 0.5 MG IV PUSH (05:51)
[2025-10-25 06:00] VITALS: BP 97/47; PULSE 80; RESP 18; TEMP 36.2; O2SAT 100
--- NOTE | 2025-10-25 06:46 | PC.NURSE ---
[place] removed from abdomen and steri- strips applied by this nurse at this time, no signs of redness, swelling or drainage at this time, Pt tolerated well.
[2025-10-25] MEDS: ESCITALOPRAM OXALATE 5 MG TABLET PO (09:47)
[2025-10-25] MEDS: POTASSIUM CHLORIDE 10 MEQ ER TABLET PO (09:47)
[2025-10-25] MEDS: ESCITALOPRAM OXALATE 10 MG TABLET PO (09:48)
[2025-10-25] MEDS: ASPIRIN 81 MG ENTERIC TABLET PO (09:48)
[2025-10-25] MEDS: PANTOPRAZOLE SODIUM IV 40 MG VIAL IV PUSH (09:48)
[2025-10-25] MEDS: PRIMIDONE 250 MG TABLET PO ×2 (09:48→12:35)
[2025-10-25 09:58] VITALS: BP 129/70
[2025-10-25] MEDS: oxyCODONE HCL (*CRX) 2.5 MG TAB IR PO (10:00)
--- NOTE | 2025-10-25 10:39 | P.DS_ITS ---
DS: Admitting Diagnosis Discharge Date 10/25/2025 Admitting Diagnosis colo enteric fistula DS: Discharge Diagnosis Discharge Diagnosis (1) Status post colostomy takedown: Code(s): Z98.890 - Other specified postprocedural states Status: Acute Assessment and Plan: status post colostomy takedown, okay to discharge to [facility] for continued rehab, no further signs or symptoms of active bleeding, continue routine postoperative care, follow-up in 2 weeks DS: Summary Hospital Course Reason for hospitalization: colostomy takedown Hospital Course: This is a 75-year-old woman who has a prior history of perforated diverticulitis. 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 She recovered from this and was remaining in a [facility] facility. At times the ostomy was having problems with the appliance sealing. She was also very distraught with the colostomy and wanted it reversed. 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 Discussions were made with the patient and family that this is going to be a very detailed and complex procedure. The patient was still wishing to proceed. Decision was made to proceed with open takedown of colostomy and small-bowel resection. Hospital Course: Patient was admitted to the hospital on 10/15/25 for scheduled open takedown of descending colostomy with partial colectomy and colorectal anastomosis, as well as ileal resection with [id number] anastomosis. Ureteral stents were placed by Dr. Harding, and removed at the end of the procedure. Patient tolerated the procedure well and was taken to recovery in good condition. Hospitalist team was consulted for medical management. Patient was tachycardic the following morning, otherwise doing well. Treated with IV fluid bolus. Bedside swallow study was attempted, but patient was unable to respond or follow directions. Patient remained aphasic, but similar to how she responded to the previous surgery. Patient was started on PPN for IV nutrition, as she was unable to start a regular diet. Throughout patient's hospital stay she worked with speech therapy and was eventually advanced to a minced and moist diet. Physical therapy and occupational therapy was continued. Patient was put on a prophy lactic Lovenox being switched back to her home dose of Eliquis. Patient did have some bloody bowel movements and her hemoglobin did drop to 6.9. She was given 1 unit of packed red blood cells and responded appropriately. Subsequently, she has had normal bowel movements and her H&H has been stable. She did have a mild hypokalemia on 10/19, which was repleted with KCL. WBC was mildly elevated after surgery, but quickly normalized. Post catheter was removed prior to discharge. Patient surgically stable for discharge to [facility] or SNF side if approved. Status at Discharge Functional status at discharge: wheelchair bound Overall status at discharge: patient is back to baseline Time Spent with Patient Time attestation: Total time spent providing and/or coordinating discharge services: Time spent: Less than 30 minutes Exam Const: General: cooperative, comfortable, no acute distress and ill appearing Resp: Auscultation: diminished lung sounds Cardio: Rate: regular rate Rhythm: regular rhythm GI: Inspection: normal to inspection, non-distended and incision GI Palp: No abdominal tenderness and Yes Soft to palpation DS: Data Data Completed and Pending Completed studies during hospitalization: Pending at discharge 10/15/25 09:32 Surgical [PTH] Routine Surgical [PTH] Routine Labs on day of discharge: Labs from last 24 hours 10/25/25 10/25/25 10/25/25 06:46 05:10 01:11 WBC 5.5 RBC 2.58 L Hgb 7.6 L Hct 24.2 L MCV 93.8 MCH 29.5 MCHC 31.4 L RDW 16.0 H Plt Count 211 MPV 10.2 POC Capillary Glucose 87 101 10/24/25 10/24/25 10/24/25 18:07 11:42 11:41 WBC RBC Hgb 8.0 L 8.0 L Hct 25.1 L 25.9 L MCV MCH MCHC RDW Plt Count MPV POC Capillary Glucose 99 Discharge Plan Discharge Attending physician on discharge: Antonio Coley Consulting providers: Ledy Laird; Yanet Do Discharging Clinician: Kathy Farias Anticipated Discharge Date/Time: 10/25/25 14:00 Patient Disposition: [place] Nursing Home/As[facility] Living Activity: may shower Diet: other - see discharge instructions Wound Care Instructions: follow printed instructions Discharge Instructions: * OK to shower. No soaking in a bath or other body of water for the next 4-6 weeks. * No heavy lifting greater than 10-15 pounds for the next 4-6 weeks. * Patient was evaluated by speech therapy while she was in the hospital. She had a modified barium swallow test on 10/20/2025. Speech therapy is recomme nding continuation of a minced and moist level 5 diet. * Dr. Coley's office will arrange for follow up appointment in 2-3 weeks. Call the office at with any questions or concerns. * Call the office or present to the emergency department if you develop and vomiting, fevers, worsening pain, redness, or increased drainage or bleeding from abdominal wounds. * Resume all home medications except Eliquis. * Continue physical and occupational therapy. Patient Instructions: Antibiotic Form, Apixaban (By mouth) Patient Language: Divehi Stand Alone Forms: General Discharge Information Follow-up/Referrals: Antonio Coley DO [Physician, General Surgery] - Other Referral Note: Appointment for Monday canceled. Office will reach out to schedule follow up appointment in 2-3 weeks. Discharge Medications: Continued acetaminophen 500 mg capsule 1,000 mg PO Q6H PRN (Reason: fever or pain) primidone 250 mg tablet 250 mg PO QID aspirin 81 mg tablet,chewable 81 mg PO DAILY amlodipine 10 mg tablet 10 mg PO DAILY Patient Comments: QAM potassium chloride 10 mEq capsule, extended release 10 meq PO DAILY docusate sodium 100 mg capsule 100 mg PO BID polyethylene glycol 3350 [ClearLax] 17 gram/dose powder 17 g PO DAILY topiramate [Topamax] 25 mg tablet 25 mg PO HS oxycodone 5 mg tablet 5 mg PO Q8H PRN (Reason: pain) Qty: 10 0RF oxycodone 5 mg tablet 5 mg PO Q8H PRN (Reason: pain) Qty: 10 0RF levetiracetam [Keppra] 250 mg tablet 1,500 mg PO BIDWM Qty: 60 0RF aspirin [Adult Low Dose Aspirin] 81 mg tablet,delayed release (DR/EC) 81 mg PO DAILY escitalopram oxalate 15 mg capsule 15 mg PO DAILY Patient Comments: QAM polyethylene glycol 3350 [Miralax] 17 gram/dose powder 17 g PO DAILY Discontinued Eliquis 5 mg tablet 5 mg PO Q12HR Qty: 60 0RF metronidazole 500 mg tablet 500 mg PO .COMPLEX Qty: 3 0RF Rx Instructions: 500 mg orally at 1:00pm, 2:00pm, and 11:00pm the day before surgery; ciprofloxacin HCl 500 mg tablet 500 mg PO .COMPLEX Qty: 1 0RF Rx Instructions: 500 mg orally at 2:00pm the day before surgery; Date of admission: 10/15/25 17:04 Primary Care Provider: Julio Manriquez Admitting Provider: Antonio Coley Attending physician on admission: Antonio Coley Condition: Improved
== END 2025-10-25 13:40 | DRG 330 ==
LOC: ANH3MEDSUR 17:05
PROVIDERS: Urology; Admitting Provider Surgery; PCP Family Medicine; Visit Provider Surgery
PROC: 0DSM0ZZ Reposition Descending Colon, Open Approach (ICD-10-PCS; CPT 44620; principal; 2025-10-15 07:30)
DX: Z43.3 Encounter for attention to colostomy (principal); E46 Unspecified protein-calorie malnutrition; G93.49 Other encephalopathy; I97.191 Other postprocedural cardiac functional disturbances following other surgery; K63.2 Fistula of intestine; R13.0 Aphagia; R13.19 Other dysphagia; I12.9 Hypertensive chronic kidney disease with stage 1 through stage 4 chronic kidney disease, or unspecified chronic kidney disease; N18.9 Chronic kidney disease, unspecified; D64.9 Anemia, unspecified; I25.10 Atherosclerotic heart disease of native coronary artery without angina pectoris; G25.2 Other specified forms of tremor; G40.909 Epilepsy, unspecified, not intractable, without status epilepticus; F32.A Depression, unspecified; Z86.718 Personal history of other venous thrombosis and embolism; Z68.28 Body mass index [BMI] 28.0-28.9, adult; Z99.3 Dependence on wheelchair; Z90.49 Acquired absence of other specified parts of digestive tract; Z79.01 Long term (current) use of anticoagulants; Z87.891 Personal history of nicotine dependence; Z79.82 Long term (current) use of aspirin; Z79.891 Long term (current) use of opiate analgesic
CPT/HCPCS: 36415; 36430; 74230; 80048; 80053; 82565; 82948; 83735; 84100; 84466; 84478; 85014; 85018; 85025; 85027; 85049; 85610; 85730; 86850; 86900; 86901; 86923; 88305; 88307; 92526; 92610; 92611; 93005; 97110; 97162; 97167; 97530; 97535; J0690; A9270; C1729; C1758; C1769; J1100; J1171; J1650; J1836; J1885; J1953; J2003; J2405; J2470; J2704; J3010; J3480; J7030; J7040; J7050; J7120; P9016